=== PATIENT | male | born 1950 | race Caucasian/White ===

== ENCOUNTER 2018-09-19 13:27 | Inpatient (IN) | payer OTHER ==
--- NOTE | 2018-09-19 13:41 | PDOC ---
Rapid Medical Evaluation Chief Complaint: Weakness Time Seen by Provider: 09/19/18 13:38 Medical Evaluation: Allergies Allergy/AdvReac Type Severity Reaction Status Date / Time No Known Allergies Allergy Verified 09/19/18 13:32 09/19/18 13:38 I have performed a brief in-person evaluation of this patient. The patient presents with a chief complaint of: multiple complaints including JOSEPH , dizziness, numbness to RUE and b/l LE x 4 days. No ext weakness, slurred speech, visual changes or n/v. Also c/o hypersomnia. S/p multiple workup at OSH last week including CTH and MRI and told everything was normal per pt. H/o HTN, HLD, depression Pertinent physical exam findings:Stable and non-focal I have ordered the following:ekg/labs The patient will proceed to the ED for further evaluation. Discharge Disposition - Diagnosis Dizzy - Referrals - Patient Instructions - Post Discharge Activity
[2018-09-19 14:40] LABS: BASO % 1.9 % (0-2.0); EOS % 0.6 % (0-4.5); HEMATOCRIT 40.1 % (35.4-49); HEMOGLOBIN 13.6 GM/dL (11.7-16.9); LYMPH % 20.7 % (8-40); MCH 33.8 pg (25.7-33.7); MEAN CELL VOLUME 99.4 fl (80-96); MEAN PLT VOLUME 8.3 fl (7.5-11.1); MONO % 7.1 % (3.8-10.2); NEUT % 69.7 % (42.8-82.8); PLATELET COUNT 211 K/MM3 (134-434); RBC 4.03 M/mm3 (4.00-5.60); WHITE BLOOD COUNT 5.6 K/mm3 (4.0-10.0)
--- NOTE | 2018-09-19 14:40 | EKG ---
Test Reason : Blood Pressure : / mmHG Vent. Rate : 087 BPM Atrial Rate : 087 BPM P-R Int : 192 ms QRS Dur : 104 ms QT Int : 422 ms P-R-T Axes : 058 029 065 degrees QTc Int : 507 ms NORMAL SINUS RHYTHM POSSIBLE LEFT ATRIAL ENLARGEMENT PROLONGED QT ABNORMAL ECG NO PREVIOUS ECGS AVAILABLE Confirmed by Luis M Upton MD ([id number]) on 09/19/2018 2:40:22 PM Referred By: Confirmed By:Luis M Upton MD
[2018-09-19 14:42] LABS: EPI CELLS 0.5 /HPF (0-5/HPF); HYALINE CASTS 1 /lpf (0-8); PH,URINE 6.5 (5.0-8.0); URINE APPEARANCE CLEAR; URINE BACTERIA 2.9 /hpf (NEGATIVE); URINE BILIRUBIN 1+ (NEGATIVE); URINE COLOR DK YELLOW; URINE GLUCOSE (UA) NEGATIVE (NEGATIVE); URINE KETONE 2+ (NEGATIVE); URINE LEUK ESTERASE NEGATIVE (NEGATIVE); URINE NITRITE NEGATIVE (NEGATIVE); URINE PROTEIN 2+ (NEGATIVE); URINE RBC 2 /hpf (0-4); URINE WBC 0 /hpf (0-5)
[2018-09-19 15:15] LABS: ALBUMIN 3.7 g/dl (3.4-5.0); ALK PHOS 148 U/L (45-117); ANION GAP 14 MMOL/L (8-16); BILIRUBIN,TOTAL 1.1 mg/dL (0.2-1); BLOOD UREA NITROGEN 13.1 mg/dL (7-18); CALCIUM 8.9 mg/dL (8.5-10.1); CHLORIDE 100 mmol/L (98-107); CO2 25 mmol/L (21-32); CREATININE 0.8 mg/dL (0.55-1.3); GLUCOSE,RANDOM 76 mg/dL (74-106); POTASSIUM 3.5 mmol/L (3.5-5.1); SGOT/AST 413 U/L (15-37); SGPT/ALT 166 U/L (13-61); SODIUM 139 mmol/L (136-145); TOT PROT 7.6 g/dl (6.4-8.2)
--- NOTE | 2018-09-19 15:41 | PDOC ---
History of Present Illness - General Chief Complaint: Weakness Stated Complaint: WEAKNESS Time Seen by Provider: 09/19/18 13:38 - History of Present Illness Initial Comments: 09/19/18 15:50 68 y/o M with hx of HTN presenting with 3 weeks of weakness. He has had 2 visits to an OSH in the last 3wks for this complaint. CT scans and MRI showed no findings and he was sent home. The weakness is primarily in his right upper extremity and legs bilaterally. He has experienced numbness and tingling in those extremities, but no decreased sensation. It is constant and has progressively gotten worse. He denies fevers, preceding viral illness, nausea, vomiting, dysuria, hematuria. Past History - Past Medical History Allergies/Adverse Reactions: Allergies Allergy/AdvReac Type Severity Reaction Status Date / Time No Known Allergies Allergy Verified 09/19/18 13:41 CVA: No COPD: No CHF: No DVT: No HTN: Yes Hypercholesterolemia: Yes - Immunization History Immunization Up to Date: Yes - Suicide/Smoking/Psychosocial Hx Smoking History: Never smoked Information on smoking cessation initiated: No Hx Alcohol Use: No Drug/Substance Use Hx: No Review of Systems - Review of Systems Constitutional: Yes: Loss of Appetite, Weakness. No: Fever HEENTM: No: Eye Pain, Blurred Vision Respiratory: No: Cough, Shortness of Breath Cardiac (ROS): No: Chest Pain ABD/GI: Yes: Other (abdominal pain). No: Diarrhea : No: Burning, Dysuria, Hematuria Integumentary: No: Bruising Neurological: Yes: See HPI Endocrine: No: Excessive Sweating All Other Systems: Reviewed and Negative *Physical Exam - Vital Signs Last Vital Signs Temp Pulse Resp BP Pulse Ox 97 H 17 124/82 95 09/19/18 13:32 09/19/18 13:32 09/19/18 13:32 09/19/18 13:32 - Physical Exam General Appearance: Yes: Nourished, Appropriately Dressed HEENT: positive: EOMI, GLORIA. negative: Scleral Icterus (R), Scleral Icterus (L) , Rhinorrhea, Sinus Tenderness Respiratory/Chest: positive: Lungs Clear, Normal Breath Sounds. negative: Chest Tender, Respiratory Distress, Wheezing Cardiovascular: positive: Regular Rhythm, Regular Rate, S1, S2. 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 5/5 in both upper extremities. no diminished sensation bilaterally ). negative: Abnormal Cranial NS, Facial Droop, Sensory Deficit, Confused, Disoriented ED Treatment Course - LABORATORY CBC & Chemistry Diagram: 09/19/18 14:27 09/19/18 14:27 - ADDITIONAL ORDERS Additional order review: Laboratory Results 09/19/18 14:27 Urine Color Dk yellow Urine Appearance Clear Urine pH 6.5 Ur Specific [place] 1.026 Urine Protein 2+ H Urine Glucose (UA) Negative Urine Ketones 2+ H Urine Blood Negative Urine Nitrite Negative Urine Bilirubin 1+ H Urine Urobilinogen 1.0 Ur Leukocyte Esterase Negative Urine WBC (Auto) 0 Urine RBC (Auto) 2 Urine Casts (Auto) 1 U Epithel Cells (Auto) 0.5 Urine Bacteria (Auto) 2.9 09/19/18 14:27 RBC 4.03 MCV 99.4 H MCHC 34.0 RDW 15.0 MPV 8.3 Neutrophils % 69.7 Lymphocytes % 20.7 Monocytes % 7.1 Eosinophils % 0.6 Basophils % 1.9 Medical Decision Making - Medical Decision Making 09/19/18 16:02 68y/o M with hx of htn presenting to the ED with 3wks of weakness and 2 prior ED visits for this complaint at OSH. seen in RME: ekg,cbc,cmp ordered ekg shows sinus rhythm,prolonged qt 507ms and left atrial enlargement -cbc, cmp, gallbladder u/s. ordered - cmp showing elevated ast, alt and alk phos. ast- 413,alt 166, alk phos 148 gall bladder u/s pending 09/19/18 16:53 09/19/18 18:14 -Lipase elevated. -Gallbladder U/S shows diffuse hepatic steatosis with no cholecystitis/ cholelithiasis. -IV fluids given and pt. made npo -Microblog for admission done at 6:14 pm to admitting team 09/19/18 18:22 Pt informed me that he is in methad[place] [id number] Unit# III dose verification; [phone] 09/19/18 18:[address] myers, she will have her night resident contact us for admission 09/19/18 19:[address] Parra to follow up on finalizing admission *DC/Admit/Observation/Transfer Diagnosis at time of Disposition: Dizzy Pancreatitis Qualifiers: Chronicity: acute Pancreatitis type: unspecified pancreatitis type Acute pancreatitis complication: unspecified Qualified Code(s): K85.90 - Acute pancreatitis without necrosis or infection, unspecified - Discharge Dispostion Condition at time of disposition: Guarded Decision to Admit order: Yes - Referrals - Patient Instructions - Post Discharge Activity
--- NOTE | 2018-09-19 17:46 | PDOC ---
Documentation entered by Hiram Mendoza SCRIBE, acting as scribe for Shanita Michael MD. Shanita Michael MD: This documentation has been prepared by the Reji gillespie Elijah, SCRIBE, under my direction and personally reviewed by me in its entirety. I confirm that the documentation accurately reflects all work, treatment, procedures, and medical decision making performed by me. Attending Attestation - Resident Resident Name: Lavern Yeung - ED Attending Attestation I have performed the following: I have examined & evaluated the patient, The case was reviewed & discussed with the resident, I agree w/resident's findings & plan, Exceptions are as noted - HPI HPI: 09/19/18 16:34 Patient is a 68 year old male with a significant past medical history of HTN, HLD, and depression who presents to the ED with x3 weeks of weakness in the R arm and both legs. Patient associates some numbness, tingling and lightheadedness but notes there are no preceding symptoms that bring about his weakness . Patient was recently seen in [facility] and his labs all came back negative. Denies recent falls Allergies: NKA - Physicial Exam PE: GENERAL: Awake, alert, and fully oriented, in no acute distress HEAD: No signs of trauma EYES: PERRLA, EOMI, sclera anicteric, conjunctiva clear ENT: Auricles normal inspection, hearing grossly normal, nares patent, oropharynx clear without exudates. Moist mucosa NECK: Normal ROM, supple, no lymphadenopathy, JVD, or masses LUNGS: Breath sounds equal, clear to auscultation bilaterally. No wheezes, and no crackles HEART: Regular rate and rhythm, normal S1 and S2, no murmurs, rubs or gallops ABDOMEN: Soft, +BUQ tenderness and epigastric tenderness, normoactive bowel sounds. +Guarding, no rebound. No masses EXTREMITIES: Normal range of motion, no edema. No clubbing or cyanosis. No cords, erythema, or tenderness NEUROLOGICAL: Cranial nerves II through XII grossly intact. Normal speech. Sensation intact. 4/5 strength lower extremities B/L, 5/5 in upper extremities SKIN: Warm, dry, normal turgor, no rashes or lesions noted. - Medical Decision Making Pt with multiple chronic complaints- he has had the weakness for an extended period of time, but does not have a primary care and does not follow with a neurologist. Unclear prior workup- it appears that it was all done in the setting of the ED and then he was (?) lost to follow-up. While he can be set up with a primary care and a neurologist for outpatient f/u, my primary concern today is that he has upper abdominal pain, appetite loss, dec PO intake, with elevated lipase. Will admit.
[2018-09-19] MEDS ORDERED: SODIUM CHLORIDE 1,000 ML IV SCH (18:00)
--- NOTE | 2018-09-19 19:18 | PDOC ---
*Physical Exam - Vital Signs Last Vital Signs Temp Pulse Resp BP Pulse Ox 98.0 F 89 17 142/87 94 L 09/19/18 17:55 09/19/18 17:55 09/19/18 13:32 09/19/18 17:55 09/19/18 17:55 ED Treatment Course - LABORATORY CBC & Chemistry Diagram: 09/19/18 14:27 09/19/18 14:27 - ADDITIONAL ORDERS Additional order review: Laboratory Results 09/19/18 09/19/18 09/19/18 14:27 14:27 14:27 Sodium 139 Potassium 3.5 Chloride 100 Carbon Dioxide 25 Anion Gap 14 BUN 13.1 Creatinine 0.8 Est GFR (CKD-EPI)AfAm 107.89 Est GFR (CKD-EPI)NonAf 93.09 Random Glucose 76 Calcium 8.9 Total Bilirubin 1.1 H AST 413 H ALT 166 H Alkaline Phosphatase 148 H Creatine Kinase 858 H Troponin I < 0.02 Total Protein 7.6 Albumin 3.7 Lipase 862 H Urine Color Dk yellow Urine Appearance Clear Urine pH 6.5 Ur Specific [place] 1.026 Urine Protein 2+ H Urine Glucose (UA) Negative Urine Ketones 2+ H Urine Blood Negative Urine Nitrite Negative Urine Bilirubin 1+ H Urine Urobilinogen 1.0 Ur Leukocyte Esterase Negative Urine WBC (Auto) 0 Urine RBC (Auto) 2 Urine Casts (Auto) 1 U Epithel Cells (Auto) 0.5 Urine Bacteria (Auto) 2.9 09/19/18 14:27 RBC 4.03 MCV 99.4 H MCHC 34.0 RDW 15.0 MPV 8.3 Neutrophils % 69.7 Lymphocytes % 20.7 Monocytes % 7.1 Eosinophils % 0.6 Basophils % 1.9 Medical Decision Making - Medical Decision Making Sign out received per Dr. Yeung. Will get patient admitted for pancreatitis. 09/19/18 19:17 *DC/Admit/Observation/Transfer Diagnosis at time of Disposition: Dizzy - Referrals - Patient Instructions - Post Discharge Activity
[2018-09-19] MEDS ORDERED: LORazepam 2 MG/ML SDV VIAL IVPUSH PRN ×2 (20:21→22:16)
[2018-09-19] MEDS ORDERED: FOLIC ACID INJECTION - 1 MG, THIAMINE HCL 100 MG, MULTIVIT INJECTION ADULT 10 ML in SOD... IVPB ONE (20:32)
--- NOTE | 2018-09-19 21:25 | HP ---
<Jay Jay Grijalva - Last Filed: 09/20/18 07:01> CHIEF COMPLAINT: PCP: none HISTORY OF PRESENT ILLNESS: 68M w/ PMH of HLD, HTN, chronic b/l knee pain, h/o PE(on xarelto), chronic tobacco usage, chronic methadone, chronic EtOH usage, BIBbrother for concern of upper/lower extremity numbness/weaknes x multiple months. States that it occurs intermittently throughout the day. Has numbness running from fingers to shoulders, and in toes. Has associated complaint of fatigue, dizziness, nausea, bilious vomiting, anorexia x 2-3d, SOB x2mo, epigastric abd pain x2-3mo, no postprandial pain, blood per rectum on wiping xmultiple months, melena x1 episode 1week prior, denies chronic NSAID usage. Does not see his PCP regularly. Drinks 1 pint pastora, daily; last drink was in AM prior to ED visit. Denies h/o seizures, hospital admissions for EtOH witdrawal. Denies h/o jaundice. ER course was notable for: (1) lipase 862 Recent Travel: PAST MEDICAL HISTORY: HLD, HTN, chronic b/l knee pain, h/o PE(on xarelto), chronic tobacco usage, chronic methadone, chronic EtOH usage PAST SURGICAL HISTORY: b/l arthroscopic knee Social History: Smokincig/daily, x30ys Alcohol: 1pint pastora/daily Drugs: heorin(snorted, last usage 10ys prior) Family History: Allergies No Known Allergies Allergy (Verified 09/19/18 13:41) HOME MEDICATIONS: Home Medications Medication Instructions Recorded Atorvastatin Ca [Lipitor] 20 mg PO HS 09/19/18 Chlorthalidone 25 mg PO DAILY 09/19/18 Rivaroxaban [Xarelto -] 20 mg PO DAILY 09/19/18 REVIEW OF SYSTEMS CONSTITUTIONAL: complains of generalized weakness, loss of appetite Absent: fever, chills, diaphoresis, malaise, weight change HEENT: Absent: rhinorrhea, nasal congestion, throat pain, throat swelling, difficulty swallowing, mouth swelling, ear pain, eye pain, visual changes, jaundice CARDIOVASCULAR: Absent: chest pain, syncope, palpitations, irregular heart rate, lightheadedness , peripheral edema RESPIRATORY: shortness of breath Absent: cough, dyspnea with exertion, orthopnea, wheezing, stridor, hemoptysis GASTROINTESTINAL: epigastric abd pain, melena x1, blood on wiping Absent: abdominal distension, nausea, vomiting, diarrhea, constipation, hematochezia GENITOURINARY: Absent: dysuria, frequency, urgency, hesitancy, hematuria, flank pain, genital pain MUSCULOSKELETAL: b/l knee pain Absent: myalgia, joint swelling, back pain, neck pain SKIN: Absent: rash, itching, pallor HEMATOLOGIC/IMMUNOLOGIC: Absent: easy bleeding, easy bruising, lymphadenopathy, frequent infections ENDOCRINE: Absent: unexplained weight gain, unexplained weight loss 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 PHYSICAL EXAMINATION Vital Signs - 24 hr 09/19/18 09/19/18 13:32 17:55 Temperature 98.0 F Pulse Rate 97 H Pulse Rate [ 89 Right Radial] Respiratory 17 Rate Blood Pressure 124/82 Blood Pressure 142/87 [Left Arm] O2 Sat by Pulse 95 94 L Oximetry (%) GENERAL: Awake, alert, and fully oriented, in no acute distress. Appears mildly anxious. Scant diaphoresis of forehead HEAD: Normal with no signs of trauma. No temporal wasting EYES: extraocular movements intact, sclera anicteric, conjunctiva clear. No lid lag. EARS, NOSE, THROAT: Ears normal, nares patent, oropharynx clear without exudates. Moist mucous membranes. Tongue fasciculations. No infraglossal jaundice NECK: Normal range of motion, supple without lymphadenopathy, JVD, or masses. LUNGS: Breath sounds equal, clear to auscultation bilaterally. No wheezes, and no crackles. No accessory muscle use. HEART: Regular rate and rhythm, normal S1 and S2 without murmur, rub or gallop. ABDOMEN: Soft, not distended, no guarding, no rebound, no masses. No tenderness w/ light palpation. Tenderness with deep palpation of epigastrium and RLQ. Neg Haji's RECTAL: no external hemorrhoids noted, no mucosal tears, no masses in rectal canal; no blood on glove MUSCULOSKELETAL: Normal range of motion at all joints. No bony deformities or tenderness. UPPER EXTREMITIES: 2+ pulses, warm, well-perfused. No cyanosis. No peripheral edema. LOWER EXTREMITIES: 2+ pulses, warm, well-perfused. No calf tenderness. No peripheral edema. NEUROLOGICAL: Cranial nerves II-XII intact. Normal speech. Gait with cane. Tremulous voice. Floors Buffer strength 5/5. PSYCHIATRIC: Cooperative. Good eye contact. Appropriate mood and affect. SKIN: Warm, dry, normal turgor, no rashes or lesions noted, normal capillary refill. Laboratory Results - last 24 hr 09/19/18 09/19/18 09/19/18 14:27 14:27 14:27 WBC 5.6 RBC 4.03 Hgb 13.6 Hct 40.1 MCV 99.4 H MCH 33.8 H MCHC 34.0 RDW 15.0 Plt Count 211 MPV 8.3 Absolute Neuts (auto) 3.9 Neutrophils % 69.7 Lymphocytes % 20.7 Monocytes % 7.1 Eosinophils % 0.6 Basophils % 1.9 Nucleated RBC % 0 Sodium 139 Potassium 3.5 Chloride 100 Carbon Dioxide 25 Anion Gap 14 BUN 13.1 Creatinine 0.8 Est GFR (CKD-EPI)AfAm 107.89 Est GFR (CKD-EPI)NonAf 93.09 Random Glucose 76 Calcium 8.9 Total Bilirubin 1.1 H AST 413 H ALT 166 H Alkaline Phosphatase 148 H Creatine Kinase 858 H Creatine Kinase Index 0.4 CK-MB (CK-2) 3.8 H Troponin I < 0.02 Total Protein 7.6 Albumin 3.7 Lipase 862 H Urine Color Urine Appearance Urine pH Ur Specific [place] Urine Protein Urine Glucose (UA) Urine Ketones Urine Blood Urine Nitrite Urine Bilirubin Urine Urobilinogen Ur Leukocyte Esterase Urine WBC (Auto) Urine RBC (Auto) Urine Casts (Auto) U Epithel Cells (Auto) Urine Bacteria (Auto) 09/19/18 14:27 WBC RBC Hgb Hct MCV MCH MCHC RDW Plt Count MPV Absolute Neuts (auto) Neutrophils % Lymphocytes % Monocytes % Eosinophils % Basophils % Nucleated RBC % Sodium Potassium Chloride Carbon Dioxide Anion Gap BUN Creatinine Est GFR (CKD-EPI)AfAm Est GFR (CKD-EPI)NonAf Random Glucose Calcium Total Bilirubin AST ALT Alkaline Phosphatase Creatine Kinase Creatine Kinase Index CK-MB (CK-2) Troponin I Total Protein Albumin Lipase Urine Color Dk yellow Urine Appearance Clear Urine pH 6.5 Ur Specific [place] 1.026 Urine Protein 2+ H Urine Glucose (UA) Negative Urine Ketones 2+ H Urine Blood Negative Urine Nitrite Negative Urine Bilirubin 1+ H Urine Urobilinogen 1.0 Ur Leukocyte Esterase Negative Urine WBC (Auto) 0 Urine RBC (Auto) 2 Urine Casts (Auto) 1 U Epithel Cells (Auto) 0.5 Urine Bacteria (Auto) 2.9 U/S RUQ(09/19/18): Impression: No sonographic evidence of cholelithiasis or acute cholecystitis. Diffuse hepatic steatosis is noted with associated hepatomegaly. 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 - confirm dose of 40mg/daily # chronic epigastric abd pain > lipase 862 -- does not meet criteria for pancreatitis > U/S RUQ(09/19/18): no GB stones, CBD ~6.4mm - fu CT A/P w/ IV contrast -- to r/o pancreatitis - pantoprazole 40mg BID - consider outpatient EGD to evaluate for gastritis/ulcer/etc - diet pending CT results # transaminitis possible 2/2 chronic hepatosteatosis v portal vein thrombus > AST/ALT 413/166 - consider CT A/P vs MRCP - monitor CMP - education counselor on EtOH cessation # chronic tobacco usage - education counselor on tobacco cessation Jay Jay Grijalva, PGY-1 Medicine, PM-Float [id number] 09/20/18 Visit type - Emergency Visit Emergency Visit: Yes ED Registration Date: 09/19/18 Care time: The patient presented to the Emergency Department on the above date and was hospitalized for further evaluation of their emergent condition. - New Patient This patient is new to me today: Yes Date on this admission: 09/20/18 - Critical Care Critical Care patient: No ATTENDING PHYSICIAN STATEMENT I saw and evaluated the patient. I reviewed the resident's note and discussed the case with the resident. I agree with the resident's findings and plan as documented. SUBJECTIVE: OBJECTIVE: ASSESSMENT AND PLAN: <Karl Smith - Last Filed: 10/15/18 21:21> Seen and examined; verified all vital parts of historical info and PE. Please see my own note for further discussion. Agree with above aside from as supplemented by myself. Family history negative for sudden cardiac , GI malignancy ATTENDING PHYSICIAN STATEMENT I saw and evaluated the patient. I reviewed the resident's note and discussed the case with the resident. I agree with the resident's findings and plan as documented. SUBJECTIVE: OBJECTIVE: ASSESSMENT AND PLAN:
[2018-09-19] MEDS: LACTATED RINGERS SOLUTION 1,000 ML/1,000 ML INFUS.BAG IV SCH (21:31)
[2018-09-19] MEDS ORDERED: DOCUSATE SODIUM 100 MG CAPSULE (FP) PO SCH (22:00)
[2018-09-19] MEDS ORDERED: PANTOPRAZOLE 40 MG TABLET (FP) PO SCH (22:00)
[2018-09-19] MEDS ORDERED: PANTOPRAZOLE 40 MG TABLET (FP) ONE (22:21)
[2018-09-19] MEDS ORDERED: DOCUSATE SODIUM 100 MG CAPSULE (FP) PO ONE (22:22)
[2018-09-20] MEDS ORDERED: LORazepam 2 MG/ML SDV VIAL IVPUSH PRN (00:41)
[2018-09-20 01:19] VITALS: BMI 26.7
--- NOTE | 2018-09-20 01:21 | PN ---
Teaching Attending Note Name of Resident: Jay Jay Grijalva ATTENDING PHYSICIAN STATEMENT I saw and evaluated the patient. I reviewed the resident's note and discussed the case with the resident. I agree with the resident's findings and plan as documented. Seen and examined; please refer to resident note for further historical information. Patient presents with abdominal pain VS, labs, imaging reveiwed NAD AAO Resting in bed NC AT EOMI PERRLA RRR s1/2 no mgr Lungs CTAB, w/ sym exp NT ND +BS CN2-12 wnl, no fnd Normal mood, aprropriate behavior. CIWA ~7 US with no definitive CBD dilation and no GB abnormality with no PC fluid, no stones. EtOH hepatitis pattern with Alk phos only very mildly elevated ASSESSMENT AND PLAN: Patient presents in EtOH WD with abdominal pain found to have alcoholic hepatitis (AST>>ALT, bili 1.1, Alk Phos 140s) with non-diagnostic lipase (could be downtrending from likely alcoholic pancreatitis); no biliary pathology on abd US with normal ducts and no stones visualized. Will discuss need for MRCP with GI (initially was going to order CT w/ contrast given length of time to eval for pseudocyst, etc. but MRCP would also show this and any underlying panc head/neck pathology (Alk slightly elev.). He desires detox and will be referred to [facility] once his workup is complete. Given the profound nature of his alcoholism as well as hepatitis will place on IV Ativan protocol overnight and CIWA protocol. No bleeding noted today but he did have melena a few weeks ago and is on xarelto; will hold the xarelto until FOBT comes back and followup with GI and give dose IV protonix. SCDs for DVT px until then. # Alcohol WD # Acute alcoholic hepatitis # Fatty liver infiltration on US with risks of alcoholic cirrhosis # Elevated but non-diagnostic lipase with elevated alk phos in the setting of alcoholic hepatitis # Alcohol abuse, chronic # Opiate abuse in remission, on methadone (confirming dose) # Paresthesias # Macrocytosis
[2018-09-20 03:50] LABS: INR 0.97 (0.83-1.09); PROTHROMBIN TIME (PATIENT) 11.4 SEC (9.7-13.0)
[2018-09-20] MEDS: LACTATED RINGERS SOLUTION 1,000 ML/1,000 ML INFUS.BAG IV SCH ×2 (04:38→23:41)
[2018-09-20 04:58] LABS: COCAINE, UR NEGATIVE ng/ml (CUTOFF=300); OPIATES, URI NEGATIVE ng/ml (CUTOFF=300); PHENCYCLIDINE,URINE NEGATIVE ng/ml (CUTOFF=25); URINE AMPHETAMINES NEGATIVE ng/ml (CUTOFF=500); URINE BARBITURATES NEGATIVE ng/ml (CUTOFF=200); URINE BENZODIAZEPINES NEGATIVE ng/ml (CUTOFF=200)
[2018-09-20 04:59] LABS: METHADONE, UR POSITIVE ng/ml (CUTOFF=300)
[2018-09-20] MEDS: LORazepam 2 MG/ML SDV VIAL IVPUSH PRN ×4 (07:10→20:45)
[2018-09-20 08:32] LABS: HEMOGLOBIN 11.1 GM/dL (11.7-16.9); MCHC 33.7 g/dl (32.0-35.9); MEAN CELL VOLUME 100.8 fl (80-96); MEAN PLT VOLUME 8.7 fl (7.5-11.1); PLATELET COUNT 161 K/MM3 (134-434); RBC 3.28 M/mm3 (4.00-5.60); RDW 14.6 % (11.9-15.9); WHITE BLOOD COUNT 6.3 K/mm3 (4.0-10.0)
[2018-09-20 08:42] LABS: INR 0.97 (0.83-1.09); PROTHROMBIN TIME (PATIENT) 11.4 SEC (9.7-13.0)
[2018-09-20 09:15] LABS: BLOOD UREA NITROGEN 10.7 mg/dL (7-18); CALCIUM 8.5 mg/dL (8.5-10.1); CREATININE 0.7 mg/dL (0.55-1.3); MAGNESIUM 1.7 mg/dL (1.8-2.4); PHOSPHOROUS 3.1 mg/dL (2.5-4.9); POTASSIUM 3.3 mmol/L (3.5-5.1)
--- NOTE | 2018-09-20 09:27 | CON.GI ---
Addendum entered and electronically signed by Raina Simon MD 09/20/18 16:07: Low MDF <32, no indication for steroid therapy. Original Note: Consult Consult Specialty:: GI Referred by:: Rainer Grande MD Reason for Consultation:: Abdominal pain , elevated Lipase , transaminitis - History of Present Illness Chief Complaint: dizziness , paresthesia. chronic slight abdominal pain History of Present Illness: 68M w/ PMH of HLD, HTN, chronic b/l knee pain, h/o PE(on xarelto), chronic tobacco usage, chronic methadone, chronic EtOH usage, BIB brother for concern of upper/lower extremity numbness/weakness x multiple months and dizziness . States that it occurs intermittently throughout the day. Has numbness running from fingers to shoulders, and in toes. Has associated complaint of fatigue, dizziness, nausea, bilious vomiting, anorexia x 2-3d, SOB x2mo, epigastric abd pain x2-3mo, no postprandial pain, blood per rectum on wiping xmultiple months, melena x1 episode 1week prior, denies chronic NSAID usage. Does not see his PCP regularly. Drinks 1 pint jewels, daily; last drink was in AM prior to ED visit. Denies h/o seizures, hospital admissions for EtOH witdrawal. Denies h/o jaundice. 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 No: Ascites Hepatobiliary: No: Cholelithiasis Renal/: No: Hematuria, Hemodialysis Psych: Yes: Addictions (methadone , alcohol , marijuana ) Rheumatology: Yes: Other (B.l Knee pain ) - Alcohol/Substance Use Hx Alcohol Use: Yes Number of Drinks Daily: 1 (1.5 pind of Jewels , last use Yesterday ) History of Substance Use: reports: Heroin, Marijuana, Prescription (methadone ) Date of Last Use: 09/16/18 (Marijuana ) - Smoking History Smoking history: Current every day smoker Have you smoked in the past 12 months: Yes Aproximately how many cigarettes per day: 5 - Social History Usual Living Arrangement: Alone ADL: Independent <Reg Graf - Last Filed: 09/20/18 15:10> Home Medications <Reg Graf - Last Filed: 09/20/18 15:10> <Raina Simon - Last Filed: 09/20/18 16:05> - Allergies Allergies/Adverse Reactions: Allergies Allergy/AdvReac Type Severity Reaction Status Date / Time No Known Allergies Allergy Verified 09/19/18 13:41 - Home Medications Home Medications: Ambulatory Orders Atorvastatin Ca [Lipitor] 20 mg PO HS 09/19/18 Chlorthalidone 25 mg PO DAILY 09/19/18 Rivaroxaban [Xarelto -] 20 mg PO DAILY 09/19/18 Methadone [Dolophine -] 40 mg PO DAILY 09/20/18 Family Disease History - Family Disease History Family Disease History: Diabetes: Mother ( @ 72 Angina , DM ), Other: Father ( @ 55 , heavy drinking ), Mother <Reg Graf - Last Filed: 09/20/18 15:10> Review of Systems - Review of Systems Constitutional: reports: Lethargy Eyes: denies: Blurred Vision, Double Vision HENT: denies: Difficult Swallowing, Ear Discharge, Ear Pain, Epistaxis, Nasal Congestion Neck: reports: No Symptoms Cardiovascular: denies: Chest Pain, Edema Respiratory: denies: Hemoptysis, Orthopnea, PND, Wheezing Genitourinary: denies: Burning, Discharge, Flank Pain, Hematuria Breasts: reports: No Symptoms Reported Musculoskeletal: reports: Other (B.L Knee pain) Integumentary: reports: No Symptoms Neurological: reports: Dizziness (feel room spinning). denies: Headache Psychiatric: reports: Anxiety <Reg Graf - Last Filed: 09/20/18 15:10> Physical Exam-GI Vital Signs: Vital Signs Temperature 98.7 F 09/20/18 09:00 Pulse Rate 80 09/20/18 09:00 Respiratory Rate 20 09/20/18 09:00 Blood Pressure 137/84 09/20/18 09:00 O2 Sat by Pulse Oximetry (%) 98 09/19/18 23:10 Constitutional: Yes: Well Nourished, No Distress, Anxious Eyes: Yes: Sclera Icterus HENT: Yes: Atraumatic, Normocephalic Neck: Yes: Supple Cardiovascular: Yes: Regular Rate and Rhythm Respiratory: Yes: CTA Bilaterally Gastrointestinal Inspection: No: Ascites, Distention ...Auscultate: Yes: Normoactive Bowel Sounds ...Palpate: Yes: Tenderness (EUQ and RLQ), Tenderness, Epigastium (mild) ...Percussion: Yes: Tympanitic ...Rectal Exam: Yes: Guaiac Negative (send another sample), Sphincter Tone Normal. No: Hemorrhoids/External Genitourinary: No: Anuria, CVA Tenderness - Left Musculoskeletal: Yes: Other (B/L Knee tenderness) Edema: No Peripheral Pulses WNL: Yes Neurological: Yes: Alert, Oriented, Numbness, Paresthesia. No: Facial Droop Psychiatric: Yes: Alert, Oriented Labs: CBC, [facility] 09/20/18 07:35 09/20/18 07:35 INR, PTT INR 0.97 (0.83-1.09) 09/20/18 07:35 <Reg Graf - Last Filed: 09/20/18 15:10> Vital Signs: Vital Signs Temperature 99 F 09/20/18 14:00 Pulse Rate 82 09/20/18 14:00 Respiratory Rate 20 09/20/18 14:00 Blood Pressure 131/88 09/20/18 14:00 O2 Sat by Pulse Oximetry (%) 98 09/19/18 23:10 Labs: CBC, [facility] 09/20/18 07:35 09/20/18 07:35 INR, PTT INR 0.97 (0.83-1.09) 09/20/18 07:35 <Raina Simon - Last Filed: 09/20/18 16:05> Imaging - Results Chest X-ray: Report Reviewed Ultrasound: Report Reviewed <Reg Graf - Last Filed: 09/20/18 15:10> Problem List - Problems (1) ETOH abuse Code(s): F10.10 - ALCOHOL ABUSE, UNCOMPLICATED (2) EtOH dependence Code(s): F10.20 - ALCOHOL DEPENDENCE, UNCOMPLICATED (3) Methadone dependence Code(s): F11.20 - OPIOID DEPENDENCE, UNCOMPLICATED (4) Transaminitis Code(s): R74.0 - NONSPEC ELEV OF LEVELS OF TRANSAMNS & LACTIC ACID DEHYDRGNSE (5) Elevated lipase Code(s): R74.8 - ABNORMAL LEVELS OF OTHER SERUM ENZYMES (6) Epigastric pain Code(s): R10.13 - EPIGASTRIC PAIN (7) HTN (hypertension) Code(s): I10 - ESSENTIAL (PRIMARY) HYPERTENSION (8) HLD (hyperlipidemia) Code(s): E78.5 - HYPERLIPIDEMIA, UNSPECIFIED (9) History of pulmonary embolus (PE) Code(s): Z86.711 - PERSONAL HISTORY OF PULMONARY EMBOLISM (10) History of melena Code(s): Z87.19 - PERSONAL HISTORY OF OTHER DISEASES OF THE DIGESTIVE SYSTEM (11) Dizzy Code(s): R42 - DIZZINESS AND GIDDINESS (12) Prolonged Q-T interval on ECG Code(s): R94.31 - ABNORMAL ELECTROCARDIOGRAM [ECG] [EKG] <Reg Graf - Last Filed: 09/20/18 15:10> Assessment/Plan # Abdominal pain very mild stareted 3 days ago , Epigastric and RUQ , RLQ , local non radiating R.O Epigastric ulcer , # Transaminitis AST 413, ALT 166, likely de to alcohol use , Bili 1.1 , US with CBD 6.5 , no cholelithisis , send hep panel , follow MRCP # Lipase elevation 800, not diagnostic for acute pancreatitis , # ETOH Abuse consider Ativan protocol , Last drink Yesterday on 1.5 pint of Jewels daily , interested in Detox # Melena one episode last month per pt , reports another one this AM , MEDARDO done By me and attending with brown stool , occult blood negative x2 , denies NSAIDS use but he is On Xarelto for PE diagnosed February 2018 , hold Xarelto FOR now , prefer heparin drip , hold in AM (6hours before EGD tomorrow ), * , hald colonoscopy June 2017 on [facility] with one plyp removed and no significant pathology per pt * Monitor H/H the drop likely delutional , repeat CBC this afternoon , no urgency for EGD , start clear liquid diet * NPO after mid night , EGD tomorrow # Methadone abuse cont out pt dose 40 mg po daily # HTN #HLD # H.o PE hold xarelto in case we need to do EGD # chronic knee pain follow up out pt # Hypomagnesia , hypokalemia replenish as needed per primary team # prolonged QTC 507 on EKG careful with antiemetics meds and other meds cause prolongation <Reg Graf - Last Filed: 09/20/18 15:10> Pt seen/examined at bedside wtih Dr. Graf, agree with above assessment and plan. Briefly, 68yo male h/o ETOH abuse, PE on xarelto (diagnosed more than 4-5 months ago), presenting with increased weakness with reported epigastric pain and dark stools. Pt poor historian though denies pain currently. History obtained partly from pts brother by phone. Pt appears comfortable, slightly tremulous, AAOX3 Abd soft, nt, softly distended Rectal: light brown stool, no obvious hemorrhoids Labs reviewed. Elevated LFTs noted most likely consistent with alcoholic hepatitis. Not suggestive of underlying cirrhosis. Labs and imaging otherwise not consistent with acute pancreatitis. While no evidence of active GI bleed, cannot exclude upper GI lesion considering prior complaints. Recommend MRCP to further evaluate for biliary obstructive process and pancreatic pathology considering vague upper abdominal complaints PPI BID Continue to hold xarelto for now, would favor heparin drip CIWA protocol If further clinically optimized and pending MRI results, would tentatively plan for EGD tomorrow for further evaluation particularly as pt will need to resume anticoagulation therapy (heparin would need to be held 6 hours prior to procedure). If overt bleeding with acute drop in Hb please notify for possible more urgent intervention. Discussed with medicine attending <Raina Simon - Last Filed: 09/20/18 16:05>
[2018-09-20 09:44] LABS: BILIRUBIN,DIRECT 0.8 mg/dL (0.0-0.2); TOT PROT 6.2 g/dl (6.4-8.2)
[2018-09-20] MEDS ORDERED: CHLORTHALIDONE 25 MG TABLET PO SCH (10:00)
[2018-09-20] MEDS ORDERED: THIAMINE HCL 200 MG/2 ML VIAL IVPB SCH (10:00)
[2018-09-20] MEDS ORDERED: PANTOPRAZOLE 40 MG TABLET (FP) PO SCH (10:00)
[2018-09-20] MEDS ORDERED: RIVAROXABAN 20 MG TABLET PO SCH (10:00)
[2018-09-20] MEDS ORDERED: ENOXAPARIN NA (PORCINE) 40 MG/0.4 ML DISP.SYRIN SQ SCH (10:00)
[2018-09-20] MEDS ORDERED: PANTOPRAZOLE SODIUM 40 MG VIAL IVPUSH SCH (10:00)
[2018-09-20] MEDS ORDERED: MAGNESIUM OXIDE 400 MG TABLET (FP) PO ONE (10:50)
[2018-09-20] MEDS ORDERED: MAGNESIUM SULF 50% (8.12 MEQ/2 ML-1 GM VIAL) IVPB ONE (11:00)
[2018-09-20] MEDS ORDERED: POTASSIUM CHLORIDE TABS 20 MEQ TABLET.ER (FP) PO ONE (11:00)
[2018-09-20] MEDS: KCL 10 MEQ IVPB 10 MEQ/100 ML INFUS.BAG IVPB SCH ×2 (12:41→17:49)
--- NOTE | 2018-09-20 13:17 | EKG ---
Test Reason : Blood Pressure : / mmHG Vent. Rate : 079 BPM Atrial Rate : 079 BPM P-R Int : 196 ms QRS Dur : 102 ms QT Int : 412 ms P-R-T Axes : 054 033 039 degrees QTc Int : 472 ms NORMAL SINUS RHYTHM NORMAL ECG WHEN COMPARED WITH ECG OF 19-SEP-2018 13:35, NO SIGNIFICANT CHANGE WAS FOUND Confirmed by SELENA SALDIVAR MD ([id number]) on 09/20/2018 1:17:23 PM Referred By: Maude MENDOZA Confirmed By:SELENA SALDIVAR MD
--- NOTE | 2018-09-20 14:53 | PN ---
Teaching Attending Note Name of Resident: Adri Vera ATTENDING PHYSICIAN STATEMENT I saw and evaluated the patient. I reviewed the resident's note and discussed the case with the resident. I agree with the resident's findings and plan as documented. SUBJECTIVE: Reports some ongoing dizziness and paraesthesia bilateral hands. No abdominal pain/nausea/vomiting/fever/chills. OBJECTIVE: Afebrile, Hemodynamically Stable. Last Vital Signs Temp Pulse Resp BP Pulse Ox 98.7 F 80 20 137/84 98 09/20/18 09:00 09/20/18 09:00 09/20/18 09:00 09/20/18 09:00 09/19/18 23:10 HEENT - Atraumatic, Normocephalic. Heart - S1, S2, RRR Lungs - clear to auscultation Abdomen - Soft, non-tender. Extremities - mild tremor. Neuro - AAO x 3. Tone/Power normal all 4 extremities. GLORIA. EOMI. No nystagmus. Laboratory Results - last 24 hr 09/19/18 09/19/18 09/19/18 14:27 14:27 14:27 WBC 5.6 RBC 4.03 Hgb 13.6 Hct 40.1 MCV 99.4 H MCH 33.8 H MCHC 34.0 RDW 15.0 Plt Count 211 MPV 8.3 Absolute Neuts (auto) 3.9 Neutrophils % 69.7 Lymphocytes % 20.7 Monocytes % 7.1 Eosinophils % 0.6 Basophils % 1.9 Nucleated RBC % 0 PT with INR INR Sodium 139 Potassium 3.5 Chloride 100 Carbon Dioxide 25 Anion Gap 14 BUN 13.1 Creatinine 0.8 Est GFR (CKD-EPI)AfAm 107.89 Est GFR (CKD-EPI)NonAf 93.09 Random Glucose 76 Hemoglobin A1c % Calcium 8.9 Phosphorus Magnesium Total Bilirubin 1.1 H Direct Bilirubin AST 413 H ALT 166 H Alkaline Phosphatase 148 H Creatine Kinase 858 H Creatine Kinase Index 0.4 CK-MB (CK-2) 3.8 H Troponin I < 0.02 Total Protein 7.6 Albumin 3.7 Lipase 862 H Vitamin B12 Serum Folate TSH Urine Color Urine Appearance Urine pH Ur Specific [place] Urine Protein Urine Glucose (UA) Urine Ketones Urine Blood Urine Nitrite Urine Bilirubin Urine Urobilinogen Ur Leukocyte Esterase Urine WBC (Auto) Urine RBC (Auto) Urine Casts (Auto) U Epithel Cells (Auto) Urine Bacteria (Auto) Stool Occult Blood Opiates Screen Methadone Screen Barbiturate Screen Phencyclidine Screen Ur Amphetamines Screen MDMA (Ecstasy) Screen Benzodiazepines Screen Cocaine Screen U Marijuana (THC) Screen 09/19/18 09/19/18 09/19/18 14:27 14:27 14:27 WBC RBC Hgb Hct MCV MCH MCHC RDW Plt Count MPV Absolute Neuts (auto) Neutrophils % Lymphocytes % Monocytes % Eosinophils % Basophils % Nucleated RBC % PT with INR INR Sodium Potassium Chloride Carbon Dioxide Anion Gap BUN Creatinine Est GFR (CKD-EPI)AfAm Est GFR (CKD-EPI)NonAf Random Glucose Hemoglobin A1c % Calcium Phosphorus Magnesium 1.9 Total Bilirubin Direct Bilirubin AST ALT Alkaline Phosphatase Creatine Kinase Creatine Kinase Index CK-MB (CK-2) Troponin I Total Protein Albumin Lipase Vitamin B12 Serum Folate 5 TSH Urine Color Dk yellow Urine Appearance Clear Urine pH 6.5 Ur Specific [place] 1.026 Urine Protein 2+ H Urine Glucose (UA) Negative Urine Ketones 2+ H Urine Blood Negative Urine Nitrite Negative Urine Bilirubin 1+ H Urine Urobilinogen 1.0 Ur Leukocyte Esterase Negative Urine WBC (Auto) 0 Urine RBC (Auto) 2 Urine Casts (Auto) 1 U Epithel Cells (Auto) 0.5 Urine Bacteria (Auto) 2.9 Stool Occult Blood Opiates Screen Methadone Screen Barbiturate Screen Phencyclidine Screen Ur Amphetamines Screen MDMA (Ecstasy) Screen Benzodiazepines Screen Cocaine Screen U Marijuana (THC) Screen 09/19/18 09/19/18 09/20/18 14:27 21:30 03:20 WBC RBC Hgb Hct MCV MCH MCHC RDW Plt Count MPV Absolute Neuts (auto) Neutrophils % Lymphocytes % Monocytes % Eosinophils % Basophils % Nucleated RBC % PT with INR INR Sodium Potassium Chloride Carbon Dioxide Anion Gap BUN Creatinine Est GFR (CKD-EPI)AfAm Est GFR (CKD-EPI)NonAf Random Glucose Hemoglobin A1c % Calcium Phosphorus Magnesium Total Bilirubin Direct Bilirubin AST ALT Alkaline Phosphatase Creatine Kinase 663 H Creatine Kinase Index 0.3 CK-MB (CK-2) 2.6 Troponin I Total Protein Albumin Lipase Vitamin B12 1299 H Serum Folate TSH Urine Color Urine Appearance Urine pH Ur Specific [place] Urine Protein Urine Glucose (UA) Urine Ketones Urine Blood Urine Nitrite Urine Bilirubin Urine Urobilinogen Ur Leukocyte Esterase Urine WBC (Auto) Urine RBC (Auto) Urine Casts (Auto) U Epithel Cells (Auto) Urine Bacteria (Auto) Stool Occult Blood Negative Opiates Screen Methadone Screen Barbiturate Screen Phencyclidine Screen Ur Amphetamines Screen MDMA (Ecstasy) Screen Benzodiazepines Screen Cocaine Screen U Marijuana (THC) Screen 09/20/18 09/20/18 09/20/18 03:20 03:20 04:30 WBC RBC Hgb Hct MCV MCH MCHC RDW Plt Count MPV Absolute Neuts (auto) Neutrophils % Lymphocytes % Monocytes % Eosinophils % Basophils % Nucleated RBC % PT with INR 11.40 INR 0.97 Sodium Potassium Chloride Carbon Dioxide Anion Gap BUN Creatinine Est GFR (CKD-EPI)AfAm Est GFR (CKD-EPI)NonAf Random Glucose Hemoglobin A1c % Calcium Phosphorus Magnesium Total Bilirubin Direct Bilirubin AST ALT Alkaline Phosphatase Creatine Kinase Creatine Kinase Index CK-MB (CK-2) Troponin I Total Protein Albumin Lipase Vitamin B12 Serum Folate 33 H TSH Urine Color Urine Appearance Urine pH Ur Specific [place] Urine Protein Urine Glucose (UA) Urine Ketones Urine Blood Urine Nitrite Urine Bilirubin Urine Urobilinogen Ur Leukocyte Esterase Urine WBC (Auto) Urine RBC (Auto) Urine Casts (Auto) U Epithel Cells (Auto) Urine Bacteria (Auto) Stool Occult Blood Opiates Screen Negative Methadone Screen Positive A* Barbiturate Screen Negative Phencyclidine Screen Negative Ur Amphetamines Screen Negative MDMA (Ecstasy) Screen Negative Benzodiazepines Screen Negative Cocaine Screen Negative U Marijuana (THC) Screen Positive A* 09/20/18 09/20/18 09/20/18 07:35 07:35 07:35 WBC 6.3 RBC 3.28 L Hgb 11.1 L Hct 33.0 L D MCV 100.8 H MCH 34.0 H MCHC 33.7 RDW 14.6 Plt Count 161 D MPV 8.7 Absolute Neuts (auto) Neutrophils % Lymphocytes % Monocytes % Eosinophils % Basophils % Nucleated RBC % PT with INR INR Sodium 140 Potassium 3.3 L Chloride 103 Carbon Dioxide 22 Anion Gap 15 BUN 10.7 Creatinine 0.7 Est GFR (CKD-EPI)AfAm 113.98 Est GFR (CKD-EPI)NonAf 98.34 Random Glucose 65 L Hemoglobin A1c % 5.0 Calcium 8.5 Phosphorus 3.1 Magnesium 1.7 L Total Bilirubin 2.0 H Direct Bilirubin 0.8 H AST 330 H ALT 138 H Alkaline Phosphatase 126 H Creatine Kinase 652 H Creatine Kinase Index 0.3 CK-MB (CK-2) 2.4 Troponin I Total Protein 6.2 L Albumin 3.0 L Lipase Vitamin B12 Serum Folate TSH 1.58 Urine Color Urine Appearance Urine pH Ur Specific [place] Urine Protein Urine Glucose (UA) Urine Ketones Urine Blood Urine Nitrite Urine Bilirubin Urine Urobilinogen Ur Leukocyte Esterase Urine WBC (Auto) Urine RBC (Auto) Urine Casts (Auto) U Epithel Cells (Auto) Urine Bacteria (Auto) Stool Occult Blood Opiates Screen Methadone Screen Barbiturate Screen Phencyclidine Screen Ur Amphetamines Screen MDMA (Ecstasy) Screen Benzodiazepines Screen Cocaine Screen U Marijuana (THC) Screen 09/20/18 09/20/18 07:35 10:10 WBC RBC Hgb Hct MCV MCH MCHC RDW Plt Count MPV Absolute Neuts (auto) Neutrophils % Lymphocytes % Monocytes % Eosinophils % Basophils % Nucleated RBC % PT with INR 11.40 INR 0.97 Sodium Potassium Chloride Carbon Dioxide Anion Gap BUN Creatinine Est GFR (CKD-EPI)AfAm Est GFR (CKD-EPI)NonAf Random Glucose Hemoglobin A1c % Calcium Phosphorus Magnesium Total Bilirubin Direct Bilirubin AST ALT Alkaline Phosphatase Creatine Kinase Creatine Kinase Index CK-MB (CK-2) Troponin I Total Protein Albumin Lipase Vitamin B12 Serum Folate TSH Urine Color Urine Appearance Urine pH Ur Specific [place] Urine Protein Urine Glucose (UA) Urine Ketones Urine Blood Urine Nitrite Urine Bilirubin Urine Urobilinogen Ur Leukocyte Esterase Urine WBC (Auto) Urine RBC (Auto) Urine Casts (Auto) U Epithel Cells (Auto) Urine Bacteria (Auto) Stool Occult Blood Negative Opiates Screen Methadone Screen Barbiturate Screen Phencyclidine Screen Ur Amphetamines Screen MDMA (Ecstasy) Screen Benzodiazepines Screen Cocaine Screen U Marijuana (THC) Screen Current Medications Generic Name Dose Route Start Last Admin Trade Name Freq PRN Reason Stop Dose Admin Chlorthalidone 25 mg 09/20/18 10:00 [place] - PO DAILY RADHA Lactated Ringer's 1,000 ml in 1,000 mls @ 100 mls/hr 09/19/18 21:00 09/20/18 04:38 Lactated Ringers Solution IV 100 mls/hr ASDIR RADHA Administration Lorazepam 1 mg 09/19/18 20:48 09/20/18 14:10 Ativan Injection - IVPUSH 1 mg Q1H PRN Administration CIWA 5-15 Lorazepam 2 mg 09/20/18 00:41 Ativan Injection - IVPUSH Q2H PRN CIWA15+ Pantoprazole Sodium 40 mg 09/20/18 10:00 09/20/18 10:05 Protonix Iv IVPUSH 40 mg DAILY RADHA Administration Thiamine HCl 200 mg 09/20/18 10:00 09/20/18 10:05 Vitamin B1 Injection - IVPB 200 mg DAILY RADHA Administration Home Medications Medication Instructions Recorded Atorvastatin Ca [Lipitor] 20 mg PO HS 09/19/18 Chlorthalidone 25 mg PO DAILY 09/19/18 Rivaroxaban [Xarelto -] 20 mg PO DAILY 09/19/18 Methadone [Dolophine -] 40 mg PO DAILY 09/20/18 ASSESSMENT AND PLAN: 68 year old male with HTN, HLD, PE (on Xarelto), Chronic bilateral knee pain, Tobacco use, Polysubstance Abuse (including Alcohol and Heroin, on Methadone), brought to ED by his brother with complaints of dizziness and numbness of hands bilaterally, found to have elevated lipase, transaminases, CK. 1. Alcoholic Hepatitis Elevated Transaminases Abdo US - Diffuse hepatic steatosis, no evidence of acute cholecystitis or cholelithiasis. Reported history of dark stool. No active bleeding. GI consulted - recommend ERCP. Diet advanced to clears. Will need EGD at some point. LFTs trending down, will monitor. Abstinence from Alcohol urged. 2. Acute Alcohol withdrawal - no hallucinations/diaphoresis Ativan as per [facility] Thiamine, Folic Acid, [facility] consulted. 3. Peripheral Neuropathy sec to Alcohol excess. CT Brain pending 4. Dizziness CT Head requested IV hydration ongoing PT eval. 5. Hypokalemia/Hypomagnesemia - repleted. 6. Hx opiate use, on Methadone - dose confirmed. 7. QTc prolongated. Electrolytes repleted. Repeat ECG requested. Will monitor on telemetry. 8. Macrocytic Anemia sec to Alcohol excess. B12 level 1299, Folate 33 9. Hx PE - previously on Xarelto. Xarelto held in favor of heparin drip pending GI decision re: EGD. 10. HTN - Chlorthalidone held. 11. HLD - Atorvastatin held due to elavted transaminases. DVT Px - on Heparin drip GI Px - on PPI.
[2018-09-20] MEDS ORDERED: HEPARIN NA (PORCINE) 5,000 UNITS/ML 1ML VIAL IVPUSH PRN ×2 (15:09)
[2018-09-20] MEDS: METHADONE HCL 40 MG DISPERSABLE TABLET PO SCH (16:13)
--- NOTE | 2018-09-20 16:46 | PN ---
Physical Exam: SUBJECTIVE: Patient seen and examined at bedside. Pt is tremulous, nauseous, sweating d/t alcohol withdrawal. Describes parasthesias as solely now in tips of fingers and toes. Denies blood in stool today. OBJECTIVE: Vital Signs Period Temp Pulse Resp BP Sys/Plaza Pulse Ox Last 24 Hr 98.0 F-99 F 80-96 18-20 124-149/74-92 94-98 GENERAL: AOx3. Mild distress d/t nausea HEENT: NCAT. No scleral icterus. Moist mucous membranes. No rhinorrhea. LUNGS: CTABL. No incr work of breathing HEART: Regular rate and rhythm, S1, S2 without murmurs ABDOMEN: Soft, nontender, nondistended, normoactive bowel sounds. EXTREMITIES: 2+ pulses, warm, well-perfused, no edema. Tremulous. NEUROLOGICAL: Pt is tremulous. Unsteady gait. Sensory intact b/l UE & LE. Full ROM in b/l UE & LE. SKIN: No rashes/ lesions noted Laboratory Results - last 24 hr Laboratory Last Values WBC 6.3 K/mm3 (4.0-10.0) 09/20/18 07:35 RBC 3.28 M/mm3 (4.00-5.60) L 09/20/18 07:35 Hgb 11.1 GM/dL (11.7-16.9) L 09/20/18 07:35 Hct 33.0 % (35.4-49) L D 09/20/18 07:35 MCV 100.8 fl (80-96) H 09/20/18 07:35 MCH 34.0 pg (25.7-33.7) H 09/20/18 07:35 MCHC 33.7 g/dl (32.0-35.9) 09/20/18 07:35 RDW 14.6 % (11.9-15.9) 09/20/18 07:35 Plt Count 161 K/MM3 (134-434) D 09/20/18 07:35 MPV 8.7 fl (7.5-11.1) 09/20/18 07:35 Absolute Neuts (auto) 3.9 K/mm3 (1.5-8.0) 09/19/18 14:27 Neutrophils % 69.7 % (42.8-82.8) 09/19/18 14:27 Lymphocytes % 20.7 % (8-40) 09/19/18 14:27 Monocytes % 7.1 % (3.8-10.2) 09/19/18 14:27 Eosinophils % 0.6 % (0-4.5) 09/19/18 14:27 Basophils % 1.9 % (0-2.0) 09/19/18 14:27 Nucleated RBC % 0 % (0-0) 09/19/18 14:27 PT with INR 11.40 SEC (9.7-13.0) 09/20/18 07:35 INR 0.97 (0.83-1.09) 09/20/18 07:35 Sodium 140 mmol/L (136-145) 09/20/18 07:35 Potassium 3.3 mmol/L (3.5-5.1) L 09/20/18 07:35 Chloride 103 mmol/L (98-107) 09/20/18 07:35 Carbon Dioxide 22 mmol/L (21-32) 09/20/18 07:35 Anion Gap 15 MMOL/L (8-16) 09/20/18 07:35 BUN 10.7 mg/dL (7-18) 09/20/18 07:35 Creatinine 0.7 mg/dL (0.55-1.3) 09/20/18 07:35 Est GFR (CKD-EPI)AfAm 113.98 09/20/18 07:35 Est GFR (CKD-EPI)NonAf 98.34 09/20/18 07:35 Random Glucose 65 mg/dL (74-106) L 09/20/18 07:35 Hemoglobin A1c % 5.0 % (4.2-6.3) 09/20/18 07:35 Calcium 8.5 mg/dL (8.5-10.1) 09/20/18 07:35 Phosphorus 3.1 mg/dL (2.5-4.9) 09/20/18 07:35 Magnesium 1.7 mg/dL (1.8-2.4) L 09/20/18 07:35 Total Bilirubin 2.0 mg/dL (0.2-1) H 09/20/18 07:35 Direct Bilirubin 0.8 mg/dL (0.0-0.2) H 09/20/18 07:35 AST 330 U/L (15-37) H 09/20/18 07:35 ALT 138 U/L (13-61) H 09/20/18 07:35 Alkaline Phosphatase 126 U/L (45-117) H 09/20/18 07:35 Creatine Kinase 652 U/L (26-308) H 09/20/18 07:35 Creatine Kinase Index 0.3 % (0.0-5.0) 09/20/18 07:35 CK-MB (CK-2) 2.4 ng/mL (0.5-3.6) 09/20/18 07:35 Troponin I < 0.02 ng/ml (0.00-0.05) 09/19/18 14:27 Total Protein 6.2 g/dl (6.4-8.2) L 09/20/18 07:35 Albumin 3.0 g/dl (3.4-5.0) L 09/20/18 07:35 Lipase 862 U/L (73-393) H 09/19/18 14:27 Vitamin B12 1299 pg/ml (193-986) H 09/19/18 14:27 Serum Folate 33 ng/mL (3.1-17.5) H 09/20/18 03:20 TSH 1.58 uIU/ml (0.358-3.74) 09/20/18 07:35 Urine Color Dk yellow 09/19/18 14:27 Urine Appearance Clear 09/19/18 14:27 Urine pH 6.5 (5.0-8.0) 09/19/18 14:27 Ur Specific [place] 1.026 (1.010-1.035) 09/19/18 14:27 Urine Protein 2+ (NEGATIVE) H 09/19/18 14:27 Urine Glucose (UA) Negative (NEGATIVE) 09/19/18 14:27 Urine Ketones 2+ (NEGATIVE) H 09/19/18 14:27 Urine Blood Negative (NEGATIVE) 09/19/18 14:27 Urine Nitrite Negative (NEGATIVE) 09/19/18 14:27 Urine Bilirubin 1+ (NEGATIVE) H 09/19/18 14:27 Urine Urobilinogen 1.0 mg/dL (0.2-1.0) 09/19/18 14:27 Ur Leukocyte Esterase Negative (NEGATIVE) 09/19/18 14:27 Urine WBC (Auto) 0 /hpf (0-5) 09/19/18 14:27 Urine RBC (Auto) 2 /hpf (0-4) 09/19/18 14:27 Urine Casts (Auto) 1 /lpf (0-8) 09/19/18 14:27 U Epithel Cells (Auto) 0.5 /HPF (0-5/HPF) 09/19/18 14:27 Urine Bacteria (Auto) 2.9 /hpf (NEGATIVE) 09/19/18 14:27 Stool Occult Blood Negative (NEGATIVE) 09/20/18 10:10 Opiates Screen Negative ng/ml (ZXGYRW=894) 09/20/18 04:30 Methadone Screen Positive ng/ml (FZZHUC=360) A* 09/20/18 04:30 Barbiturate Screen Negative ng/ml (AOFVKR=383) 09/20/18 04:30 Phencyclidine Screen Negative ng/ml (CUTOFF=25) 09/20/18 04:30 Ur Amphetamines Screen Negative ng/ml (PNAXRR=551) 09/20/18 04:30 MDMA (Ecstasy) Screen Negative ng/ml (JXWZLL=512) 09/20/18 04:30 Benzodiazepines Screen Negative ng/ml (NDNOEZ=036) 09/20/18 04:30 Cocaine Screen Negative ng/ml (CZMSTK=263) 09/20/18 04:30 U Marijuana (THC) Screen Positive ng/ml (CUTOFF=50) A* 09/20/18 04:30 Active Medications Current Medications Folic Acid (Folic Acid -) 1 mg PO DAILY RAD[facility] Heparin Sodium (Porcine) (Heparin -) 1,000 unit IVPUSH PRN PRN PRN Reason: Heparin Heparin Sodium (Porcine) (Heparin -) 5,000 unit IVPUSH PRN PRN PRN Reason: Heparin Lactated Ringer's (Lactated Ringers Solution) 1,000 ml in 1,000 mls @ 100 mls/ hr IV ASDIR RADHA Last Admin: 09/20/18 04:38 Dose: 100 mls/hr Heparin Sodium (Porcine) 25, (000 unit/ Sodium Chloride) 500 mls @ 20 mls/hr IV TITR RADHA; Protocol Lorazepam (Ativan Injection -) 1 mg IVPUSH Q1H PRN PRN Reason: CIWA 5-15 Last Admin: 09/20/18 14:10 Dose: 1 mg Lorazepam (Ativan Injection -) 2 mg IVPUSH Q2H PRN PRN Reason: CIWA15+ Methadone HCl (Dolophine -) 40 mg PO DAILY@0600 [facility] Last Admin: 09/20/18 16:13 Dose: 40 mg Multivitamins/Minerals/Vitamin C (Tab-A-Vit -) 1 tab PO DAILY [facility] Pantoprazole Sodium (Protonix Iv) 40 mg IVPUSH DAILY [facility] Last Admin: 09/20/18 10:05 Dose: 40 mg Thiamine HCl (Vitamin B1 Injection -) 200 mg IVPB DAILY [facility] Last Admin: 09/20/18 10:05 Dose: 200 mg ASSESSMENT/PLAN: 68 y.o. 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 Found to have alcoholic hepatitis. 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 No obvious hemorrhoids noted. -Pt's daughter states he has had similar episodes in the recent past -Denies further bleeding -Possible colonoscopy tomorrow -GI on board: Recs MRCP to evaluate for biliary obstrx/ r/o pancr pathology. Possible EGD tomorrow -Trend H&H -Protonix 40 -Holding rivaroxaban #History of PE -Heparin drip -Records w/ 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 EtOH abuse -Ativan PRN -CIWA 10 -Thiamine -Folic acid -[facility] transfer once d/c for detox #Hypokalemia -Repleted _Trend CMP #Hypomagnesemia -Repleted -Trend CMP #Hx substance abuse -On Methadone 40 #Macrocytic anemia -MCV 100 #QTc prolongation -qtc 507 -transfer to [facility] -repeat EKG #HTN -Holding chlorthalidone #HLD -Holding Atorvastatin #DVT PPX -Heparin drip #FEN -LR -Trend BMP; repleted mag & K -CLD; NPO @ midnight for EGD tomorrow #Dispo Tele Visit type - Emergency Visit Emergency Visit: No - New Patient This patient is new to me today: No - Critical Care Critical Care patient: No ATTENDING PHYSICIAN STATEMENT I saw and evaluated the patient. I reviewed the resident's note and discussed the case with the resident. I agree with the resident's findings and plan as documented. SUBJECTIVE: OBJECTIVE: ASSESSMENT AND PLAN:
[2018-09-20] MEDS: HEPARIN - 25,000 UNIT in SODIUM CHLORIDE 495 ML IV SCH ×2 (18:03→23:41)
[2018-09-20] MEDS ORDERED: ATORVASTATIN CA 20 MG TABLET (FP) PO SCH (22:00)
[2018-09-21] MEDS: METHADONE HCL 40 MG DISPERSABLE TABLET PO SCH (05:54)
[2018-09-21 06:36] LABS: EOS % 1.6 % (0-4.5); HEMATOCRIT 36.9 % (35.4-49); HEMOGLOBIN 12.4 GM/dL (11.7-16.9); LYMPH % 19.2 % (8-40); MCH 33.8 pg (25.7-33.7); MCHC 33.7 g/dl (32.0-35.9); MEAN CELL VOLUME 100.3 fl (80-96); MEAN PLT VOLUME 9.1 fl (7.5-11.1); MONO % 5.4 % (3.8-10.2); NEUT % 72.8 % (42.8-82.8); PLATELET COUNT 159 K/MM3 (134-434); RBC 3.68 M/mm3 (4.00-5.60); RDW 14.2 % (11.9-15.9); WHITE BLOOD COUNT 6.8 K/mm3 (4.0-10.0)
[2018-09-21 06:50] LABS: INR 0.97 (0.83-1.09); PROTHROMBIN TIME (PATIENT) 11.5 SEC (9.7-13.0)
[2018-09-21 06:58] LABS: ALBUMIN 3.5 g/dl (3.4-5.0); BILIRUBIN,TOTAL 2.1 mg/dL (0.2-1); BLOOD UREA NITROGEN 6.7 mg/dL (7-18); CALCIUM 9.4 mg/dL (8.5-10.1); CREATININE 0.7 mg/dL (0.55-1.3); MAGNESIUM 1.8 mg/dL (1.8-2.4); POTASSIUM 3.5 mmol/L (3.5-5.1)
[2018-09-21] MEDS: LORazepam 2 MG/ML SDV VIAL IVPUSH PRN ×3 (08:06→21:24)
[2018-09-21] MEDS ORDERED: POTASSIUM PHOSPHATE 15 MM in SODIUM CHLORIDE 250 ML IVPB ONE (09:00)
[2018-09-21] MEDS ORDERED: PANTOPRAZOLE SODIUM 40 MG VIAL IVPUSH SCH (10:00)
[2018-09-21] MEDS: FOLIC ACID 1 MG TABLET (FP) PO SCH (10:13)
[2018-09-21] MEDS: MULTIVITAMINS (DAILY MVI) TABLET (FP) PO SCH (10:15)
[2018-09-21] MEDS: THIAMINE HCL 200 MG/2 ML VIAL IVPB SCH (12:23)
--- NOTE | 2018-09-21 13:03 | PN ---
Physical Exam: SUBJECTIVE: Patient seen and examined. Tremulous. Denies blood in stool/ nausea / vomiting/ abdominal pain/ chills/ fevers. OBJECTIVE: Vital Signs Period Temp Pulse Resp BP Sys/Plaza Pulse Ox Last 24 Hr 98.5 F-99.5 F 78-90 18-20 131-151/77-90 97-97 GENERAL: AOx3. In no acute distress. HEENT: NCAT. No scleral icterus. Moist mucous membranes. LUNGS: CTABL. No incr work of breathing. HEART: Regular rate and rhythm, S1, S2 without murmurs ABDOMEN: Soft, nontender, nondistended, normoactive bowel sounds. EXTREMITIES: 2+ pulses, warm, well-perfused, no edema. Tremulous. NEUROLOGICAL: Normal gait observed. Sensory intact b/l UE & LE. Full ROM in b/l UE & LE. PSYCH: Denies AVH SKIN: No rashes/ lesions noted Laboratory Results - last 24 hr Laboratory Last Values WBC 6.8 K/mm3 (4.0-10.0) 09/21/18 06:02 RBC 3.68 M/mm3 (4.00-5.60) L 09/21/18 06:02 Hgb 12.4 GM/dL (11.7-16.9) 09/21/18 06:02 Hct 36.9 % (35.4-49) 09/21/18 06:02 MCV 100.3 fl (80-96) H 09/21/18 06:02 MCH 33.8 pg (25.7-33.7) H 09/21/18 06:02 MCHC 33.7 g/dl (32.0-35.9) 09/21/18 06:02 RDW 14.2 % (11.9-15.9) 09/21/18 06:02 Plt Count 159 K/MM3 (134-434) 09/21/18 06:02 MPV 9.1 fl (7.5-11.1) 09/21/18 06:02 Absolute Neuts (auto) 5.0 K/mm3 (1.5-8.0) 09/21/18 06:02 Neutrophils % 72.8 % (42.8-82.8) 09/21/18 06:02 Lymphocytes % 19.2 % (8-40) 09/21/18 06:02 Monocytes % 5.4 % (3.8-10.2) 09/21/18 06:02 Eosinophils % 1.6 % (0-4.5) D 09/21/18 06:02 Basophils % 1.0 % (0-2.0) 09/21/18 06:02 Nucleated RBC % 0 % (0-0) 09/21/18 06:02 PT with INR 11.50 SEC (9.7-13.0) 09/21/18 06:02 INR 0.97 (0.83-1.09) 09/21/18 06:02 PTT (Actin FS) 60.2 SECONDS (25.2-36.5) H 09/21/18 06:02 Sodium 137 mmol/L (136-145) 09/21/18 06:02 Potassium 3.5 mmol/L (3.5-5.1) 09/21/18 06:02 Chloride 98 mmol/L (98-107) 09/21/18 06:02 Carbon Dioxide 30 mmol/L (21-32) 09/21/18 06:02 Anion Gap 9 MMOL/L (8-16) 09/21/18 06:02 BUN 6.7 mg/dL (7-18) L 09/21/18 06:02 Creatinine 0.7 mg/dL (0.55-1.3) 09/21/18 06:02 Est GFR (CKD-EPI)AfAm 113.98 09/21/18 06:02 Est GFR (CKD-EPI)NonAf 98.34 09/21/18 06:02 Random Glucose 109 mg/dL (74-106) H 09/21/18 06:02 Hemoglobin A1c % 5.0 % (4.2-6.3) 09/20/18 07:35 Calcium 9.4 mg/dL (8.5-10.1) 09/21/18 06:02 Phosphorus 2.0 mg/dL (2.5-4.9) L 09/21/18 06:02 Magnesium 1.8 mg/dL (1.8-2.4) 09/21/18 06:02 Total Bilirubin 2.1 mg/dL (0.2-1) H 09/21/18 06:02 Direct Bilirubin 0.8 mg/dL (0.0-0.2) H 09/20/18 07:35 AST 341 U/L (15-37) H 09/21/18 06:02 ALT 157 U/L (13-61) H 09/21/18 06:02 Alkaline Phosphatase 144 U/L (45-117) H 09/21/18 06:02 Creatine Kinase 652 U/L (26-308) H 09/20/18 07:35 Creatine Kinase Index 0.3 % (0.0-5.0) 09/20/18 07:35 CK-MB (CK-2) 2.4 ng/mL (0.5-3.6) 09/20/18 07:35 Troponin I < 0.02 ng/ml (0.00-0.05) 09/19/18 14:27 Total Protein 7.0 g/dl (6.4-8.2) 09/21/18 06:02 Albumin 3.5 g/dl (3.4-5.0) 09/21/18 06:02 Lipase 862 U/L (73-393) H 09/19/18 14:27 Vitamin B12 1299 pg/ml (193-986) H 09/19/18 14:27 Serum Folate 33 ng/mL (3.1-17.5) H 09/20/18 03:20 TSH 1.58 uIU/ml (0.358-3.74) 09/20/18 07:35 Urine Color Dk yellow 09/19/18 14:27 Urine Appearance Clear 09/19/18 14:27 Urine pH 6.5 (5.0-8.0) 09/19/18 14:27 Ur Specific [place] 1.026 (1.010-1.035) 09/19/18 14:27 Urine Protein 2+ (NEGATIVE) H 09/19/18 14:27 Urine Glucose (UA) Negative (NEGATIVE) 09/19/18 14:27 Urine Ketones 2+ (NEGATIVE) H 09/19/18 14:27 Urine Blood Negative (NEGATIVE) 09/19/18 14:27 Urine Nitrite Negative (NEGATIVE) 09/19/18 14:27 Urine Bilirubin 1+ (NEGATIVE) H 09/19/18 14:27 Urine Urobilinogen 1.0 mg/dL (0.2-1.0) 09/19/18 14:27 Ur Leukocyte Esterase Negative (NEGATIVE) 09/19/18 14:27 Urine WBC (Auto) 0 /hpf (0-5) 09/19/18 14:27 Urine RBC (Auto) 2 /hpf (0-4) 09/19/18 14:27 Urine Casts (Auto) 1 /lpf (0-8) 09/19/18 14:27 U Epithel Cells (Auto) 0.5 /HPF (0-5/HPF) 09/19/18 14:27 Urine Bacteria (Auto) 2.9 /hpf (NEGATIVE) 09/19/18 14:27 Stool Occult Blood Negative (NEGATIVE) 09/20/18 10:10 Opiates Screen Negative ng/ml (YLDZKT=102) 09/20/18 04:30 Methadone Screen Positive ng/ml (KJKNRY=146) A* 09/20/18 04:30 Barbiturate Screen Negative ng/ml (ZMZJRD=620) 09/20/18 04:30 Phencyclidine Screen Negative ng/ml (CUTOFF=25) 09/20/18 04:30 Ur Amphetamines Screen Negative ng/ml (DTGHZJ=620) 09/20/18 04:30 MDMA (Ecstasy) Screen Negative ng/ml (MRXCHJ=478) 09/20/18 04:30 Benzodiazepines Screen Negative ng/ml (WGHNEG=680) 09/20/18 04:30 Cocaine Screen Negative ng/ml (LGZVCT=980) 09/20/18 04:30 U Marijuana (THC) Screen Positive ng/ml (CUTOFF=50) A* 09/20/18 04:30 Active Medications Current Medications Folic Acid (Folic Acid -) 1 mg PO DAILY [facility] Last Admin: 09/21/18 10:13 Dose: Not Given Lactated Ringer's (Lactated Ringers Solution) 1,000 ml in 1,000 mls @ 100 mls/ hr IV ASDIR RADHA Last Admin: 09/20/18 23:41 Dose: 100 mls/hr Potassium Phosphate 15 mm/ (Sodium Chloride) 255 mls @ 62.5 mls/hr IVPB ONCE ONE Stop: 09/21/18 13:04 Last Admin: 09/21/18 10:12 Dose: 62.5 mls/hr Lorazepam (Ativan Injection -) 1 mg IVPUSH Q1H PRN PRN Reason: CIWA 5-15 Last Admin: 09/21/18 08:06 Dose: 1 mg Lorazepam (Ativan Injection -) 2 mg IVPUSH Q2H PRN PRN Reason: CIWA15+ Methadone HCl (Dolophine -) 40 mg PO DAILY@0600 [facility] Last Admin: 09/21/18 05:54 Dose: 40 mg Multivitamins/Minerals/Vitamin C (Tab-A-Vit -) 1 tab PO DAILY [facility] Last Admin: 09/21/18 10:15 Dose: Not Given Pantoprazole Sodium (Protonix Iv) 40 mg IVPUSH DAILY [facility] Last Admin: 09/21/18 10:14 Dose: 40 mg Thiamine HCl (Vitamin B1 Injection -) 200 mg IVPB DAILY [facility] Last Admin: 09/21/18 12:23 Dose: 200 mg ASSESSMENT/PLAN: 68 y.o. 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 Found to have alcoholic hepatitis. 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 No intrahepatic or extrahepatic biliary ductal dilatation. No cholelithiasis. No choledocholithiasis. #Possible GIB -F/u EGD results -FOBT neg -Pt's daughter states he has had similar episodes in the recent past -Denies further bleeding -GI on board -Hgb stable -Protonix 40 -Holding rivaroxaban #History of PE -Heparin drip, restarting tonight (d/c'd prior to EGD) -Records w/ 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 EtOH abuse -Ativan PRN -CIWA 7 today -Thiamine -Folic acid -[facility] transfer once d/c for detox #Hypokalemia -Resolved #Hypomagnesemia -Resolved #Hx substance abuse -On Methadone 40 #Macrocytic anemia -MCV 100 -2/2 alcohol #QTc prolongation -qtc 472 on repea ekg -Tele monitor #HTN -Holding chlorthalidone #HLD -Holding Atorvastatin #DVT PPX -Heparin drip #FEN -LR -Trend BMP; replete prn -Fat/ sodium controlled diet Visit type - Emergency Visit Emergency Visit: No - New Patient This patient is new to me today: No - Critical Care Critical Care patient: No ATTENDING PHYSICIAN STATEMENT I saw and evaluated the patient. I reviewed the resident's note and discussed the case with the resident. I agree with the resident's findings and plan as documented. SUBJECTIVE: OBJECTIVE: ASSESSMENT AND PLAN:
--- NOTE | 2018-09-21 13:18 | PN ---
Progress Note (short form) - Note Progress Note: EGD complete. Report left in procedural section of physical chart and to be scanned into [employer]
[2018-09-21] MEDS ORDERED: HEPARIN NA (PORCINE) 5,000 UNITS/ML 1ML VIAL IVPUSH PRN ×2 (14:21)
--- NOTE | 2018-09-21 14:40 | PN ---
Teaching Attending Note Name of Resident: Adri Vera ATTENDING PHYSICIAN STATEMENT I saw and evaluated the patient. I reviewed the resident's note and discussed the case with the resident. I agree with the resident's findings and plan as documented. SUBJECTIVE: Feeling better. No abdominal pain/nausea/vomiting/fever/chills. No sweats/hallucinations/seizures OBJECTIVE: Afebrile, Hemodynamically Stable. Tremor improving Last Vital Signs Temp Pulse Resp BP Pulse Ox 99.2 F 86 18 150/91 99 09/21/18 13:26 09/21/18 13:26 09/21/18 13:26 09/21/18 13:26 09/21/18 13:26 Heart - S1, S2, RRR Lungs - clear to auscultation Abdomen - Soft, non-tender. Extremities - mild tremor. Neuro - AAO x 3. Tone/Power normal all 4 extremities. GLORIA. EOMI. No nystagmus. Laboratory Results - last 24 hr 09/20/18 09/21/18 09/21/18 21:35 06:02 06:02 WBC 6.8 RBC 3.68 L Hgb 12.4 Hct 36.9 MCV 100.3 H MCH 33.8 H MCHC 33.7 RDW 14.2 Plt Count 159 MPV 9.1 Absolute Neuts (auto) 5.0 Neutrophils % 72.8 Lymphocytes % 19.2 Monocytes % 5.4 Eosinophils % 1.6 D Basophils % 1.0 Nucleated RBC % 0 PT with INR 11.50 INR 0.97 PTT (Actin FS) 48.1 H Sodium Potassium Chloride Carbon Dioxide Anion Gap BUN Creatinine Est GFR (CKD-EPI)AfAm Est GFR (CKD-EPI)NonAf Random Glucose Calcium Phosphorus Magnesium Total Bilirubin AST ALT Alkaline Phosphatase Total Protein Albumin 09/21/18 09/21/18 06:02 06:02 WBC RBC Hgb Hct MCV MCH MCHC RDW Plt Count MPV Absolute Neuts (auto) Neutrophils % Lymphocytes % Monocytes % Eosinophils % Basophils % Nucleated RBC % PT with INR INR PTT (Actin FS) 60.2 H Sodium 137 Potassium 3.5 Chloride 98 Carbon Dioxide 30 Anion Gap 9 BUN 6.7 L Creatinine 0.7 Est GFR (CKD-EPI)AfAm 113.98 Est GFR (CKD-EPI)NonAf 98.34 Random Glucose 109 H Calcium 9.4 Phosphorus 2.0 L Magnesium 1.8 Total Bilirubin 2.1 H AST 341 H ALT 157 H Alkaline Phosphatase 144 H Total Protein 7.0 Albumin 3.5 Current Medications Generic Name Dose Route Start Last Admin Trade Name [place] PRN Reason Stop Dose Admin Folic Acid 1 mg 09/21/18 10:00 09/21/18 10:13 Folic Acid - PO Not Given DAILY RADHA Heparin Sodium (Porcine) 1,000 unit 09/21/18 14:21 Heparin - IVPUSH PRN PRN Heparin Heparin Sodium (Porcine) 5,000 unit 09/21/18 14:21 Heparin - IVPUSH PRN PRN Heparin Lactated Ringer's 1,000 ml in 1,000 mls @ 100 mls/hr 09/20/18 17:45 09/20/18 23:41 Lactated Ringers Solution IV 100 mls/hr ASDIR RADHA Administration Heparin Sodium (Porcine) 25, 500 mls @ 20 mls/hr 09/21/18 20:00 000 unit/ Sodium Chloride IV TITR RADHA Protocol 1,000 UNIT/HR Lorazepam 1 mg 09/20/18 17:45 09/21/18 08:06 Ativan Injection - IVPUSH 1 mg Q1H PRN Administration CIWA 5-15 Lorazepam 2 mg 09/20/18 17:45 Ativan Injection - IVPUSH Q2H PRN CIWA15+ Methadone HCl 40 mg 09/20/18 16:00 09/21/18 05:54 Dolophine - PO 40 mg DAILY@0600 [facility] Administration Multivitamins/Minerals/Vitamin C 1 tab 09/21/18 10:00 09/21/18 10:15 Tab-A-Vit - PO Not Given DAILY [facility] Pantoprazole Sodium 40 mg 09/22/18 10:00 Protonix - PO DAILY [facility] Thiamine HCl 200 mg 09/21/18 10:00 09/21/18 12:23 Vitamin B1 Injection - IVPB 200 mg DAILY [facility] Administration ASSESSMENT AND PLAN: 68 year old male with HTN, HLD, PE (on Xarelto), Chronic bilateral knee pain, Tobacco use, Polysubstance Abuse (including Alcohol and Heroin, on Methadone), brought to ED by his brother with complaints of dizziness and numbness of hands bilaterally, found to have elevated lipase, transaminases, CK. 1. Alcoholic Hepatitis Elevated Transaminases Abdo US - Diffuse hepatic steatosis, no evidence of acute cholecystitis or cholelithiasis. MRCP - fatty liver, no intra- or extra-hepatic biliary dilatation. Reported history of dark stool. No active bleeding. EGD scheduled today. LFTs trending down, will monitor. Abstinence from Alcohol urged. 2. Acute Alcohol withdrawal - no hallucinations/diaphoresis Ativan as per [place] Thiamine, Folic Acid, [facility] consulted. 3. Peripheral Neuropathy sec to Alcohol excess. CT Brain - no acute intracranial findings. 4. Dizziness - sec to dehydration, resolved with IV hydration CT Head neg PT eval. 5. Hypokalemia/Hypomagnesemia - repleted. 6. Hx opiate use, on Methadone - dose confirmed. 7. QTc prolonged. Electrolytes repleted. Repeat ECG shows improved QTc. No tele- events 8. Macrocytic Anemia sec to Alcohol excess. B12 level 1299, Folate 33 9. Hx PE - previously on Xarelto. Xarelto held in favor of heparin drip pending EGD. To resume post-EGD. 10. HTN - Chlorthalidone held. 11. HLD - Atorvastatin held due to elevated transaminases. 12. Hypophosphatemia - will replete. DVT Px - on Heparin drip GI Px - on PPI.
[2018-09-21] MEDS: HEPARIN - 25,000 UNIT in SODIUM CHLORIDE 495 ML IV SCH (20:00)
[2018-09-21] MEDS: LACTATED RINGERS SOLUTION 1,000 ML/1,000 ML INFUS.BAG IV SCH (21:22)
[2018-09-22] MEDS: LORazepam 2 MG/ML SDV VIAL IVPUSH PRN ×4 (02:08→17:50)
[2018-09-22] MEDS ORDERED: PT OWN MED DRAWER 7, Y5N ONE (05:13)
[2018-09-22] MEDS: HEPARIN - 25,000 UNIT in SODIUM CHLORIDE 495 ML IV SCH (06:00)
[2018-09-22] MEDS: METHADONE HCL 40 MG DISPERSABLE TABLET PO SCH (06:01)
[2018-09-22] MEDS: LACTATED RINGERS SOLUTION 1,000 ML/1,000 ML INFUS.BAG IV SCH ×2 (07:11→17:46)
[2018-09-22] MEDS: KCL 10 MEQ IVPB 10 MEQ/100 ML INFUS.BAG IVPB SCH (07:11)
[2018-09-22] MEDS: FOLIC ACID 1 MG TABLET (FP) PO SCH (09:23)
[2018-09-22] MEDS: MULTIVITAMINS (DAILY MVI) TABLET (FP) PO SCH (09:23)
[2018-09-22] MEDS: THIAMINE HCL 200 MG/2 ML VIAL IVPB SCH (09:27)
[2018-09-22 09:53] LABS: BASO % 0.6 % (0-2.0); EOS % 2.4 % (0-4.5); HEMATOCRIT 39.3 % (35.4-49); HEMOGLOBIN 13.2 GM/dL (11.7-16.9); LYMPH % 25.7 % (8-40); MCH 33.6 pg (25.7-33.7); MCHC 33.7 g/dl (32.0-35.9); MEAN CELL VOLUME 99.6 fl (80-96); MEAN PLT VOLUME 9.8 fl (7.5-11.1); MONO % 6.2 % (3.8-10.2); NEUT % 65.1 % (42.8-82.8); PLATELET COUNT 169 K/MM3 (134-434); RBC 3.94 M/mm3 (4.00-5.60); RDW 14.7 % (11.9-15.9); WHITE BLOOD COUNT 7.1 K/mm3 (4.0-10.0)
[2018-09-22] MEDS ORDERED: PANTOPRAZOLE 40 MG TABLET (FP) PO SCH (10:00)
--- NOTE | 2018-09-22 12:42 | EKG ---
Test Reason : Blood Pressure : / mmHG Vent. Rate : 103 BPM Atrial Rate : 103 BPM P-R Int : 192 ms QRS Dur : 098 ms QT Int : 376 ms P-R-T Axes : 044 -04 024 degrees QTc Int : 492 ms SINUS TACHYCARDIA POSSIBLE LEFT ATRIAL ENLARGEMENT INFERIOR INFARCT , AGE UNDETERMINED ABNORMAL ECG WHEN COMPARED WITH ECG OF 20-SEP-2018 12:43, NO SIGNIFICANT CHANGE WAS FOUND Confirmed by JOSE DANIEL JORDAN MD ([id number]) on 09/22/2018 12:42:21 PM Referred By: Confirmed By:JOSE DANIEL JORDAN MD
[2018-09-22 13:59] LABS: ALBUMIN 3.6 g/dl (3.4-5.0); BILIRUBIN,TOTAL 1.6 mg/dL (0.2-1); BLOOD UREA NITROGEN 10.2 mg/dL (7-18); CALCIUM 9.4 mg/dL (8.5-10.1); CREATININE 0.8 mg/dL (0.55-1.3); MAGNESIUM 1.8 mg/dL (1.8-2.4); POTASSIUM 3.1 mmol/L (3.5-5.1); TOT PROT 7.4 g/dl (6.4-8.2)
[2018-09-22] MEDS ORDERED: MAGNESIUM SULF 50% (8.12 MEQ/2 ML-1 GM VIAL) IVPB ONE (14:42)
--- NOTE | 2018-09-22 14:42 | PN ---
Teaching Attending Note Name of Resident: Adri Vera ATTENDING PHYSICIAN STATEMENT I saw and evaluated the patient. I reviewed the resident's note and discussed the case with the resident. I agree with the resident's findings and plan as documented. SUBJECTIVE: Feeling better. No abdominal pain/nausea/vomiting/fever/chills. No sweats/hallucinations/seizures OBJECTIVE: Afebrile, Hemodynamically Stable. Some tachycardic episodes overnight. Tremor improving Last Vital Signs Temp Pulse Resp BP Pulse Ox 98.3 F 95 H 20 125/74 100 09/22/18 05:00 09/22/18 05:00 09/22/18 05:00 09/22/18 05:00 09/21/18 21:00 Heart - S1, S2, RRR Lungs - clear to auscultation Abdomen - Soft, non-tender. Extremities - mild tremor. NO edema, no calf tenderness. Neuro - AAO x 3. Tone/Power normal all 4 extremities. GLORIA. EOMI. No nystagmus. Laboratory Results - last 24 hr 09/22/18 09/22/18 09/22/18 08:15 09:15 09:15 WBC 7.1 RBC 3.94 L Hgb 13.2 Hct 39.3 MCV 99.6 H MCH 33.6 MCHC 33.7 RDW 14.7 Plt Count 169 MPV 9.8 Absolute Neuts (auto) 4.6 Neutrophils % 65.1 Lymphocytes % 25.7 D Monocytes % 6.2 Eosinophils % 2.4 Basophils % 0.6 Nucleated RBC % 0 PTT (Actin FS) 36.6 H Sodium 139 Potassium 3.1 L Chloride 101 Carbon Dioxide 28 Anion Gap 10 BUN 10.2 Creatinine 0.8 Est GFR (CKD-EPI)AfAm 107.89 Est GFR (CKD-EPI)NonAf 93.09 Random Glucose 103 Calcium 9.4 Phosphorus 4.0 Magnesium 1.8 Total Bilirubin 1.6 H AST 253 H ALT 153 H Alkaline Phosphatase 145 H Total Protein 7.4 Albumin 3.6 Current Medications Generic Name Dose Route Start Last Admin Trade Name Freq PRN Reason Stop Dose Admin Folic Acid 1 mg 09/21/18 10:00 09/22/18 09:23 Folic Acid - PO 1 mg DAILY RAD[facility] Administration Lactated Ringer's 1,000 ml in 1,000 mls @ 100 mls/hr 09/20/18 17:45 09/22/18 07:11 Lactated Ringers Solution IV Not Given ASDIR RADHA Lorazepam 1 mg 09/20/18 17:45 09/22/18 14:04 Ativan Injection - IVPUSH 1 mg Q1H PRN Administration CIWA 5-15 Lorazepam 2 mg 09/20/18 17:45 09/22/18 02:08 Ativan Injection - IVPUSH 2 mg Q2H PRN Administration CIWA15+ Methadone HCl 40 mg 09/20/18 16:00 09/22/18 06:01 Dolophine - PO 40 mg DAILY@0600 RAD[facility] Administration Multivitamins/Minerals/Vitamin C 1 tab 09/21/18 10:00 09/22/18 09:23 Tab-A-Vit - PO 1 tab DAILY RAD[facility] Administration Pantoprazole Sodium 40 mg 09/22/18 10:00 09/22/18 09:23 Protonix - PO 40 mg DAILY [facility] Administration Potassium Chloride 40 meq 09/22/18 14:45 K-Dur - PO 09/22/18 18:46 Q4H RADHA Rivaroxaban 20 mg 09/22/18 18:00 Xarelto PO DAILY@1800 [facility] Thiamine HCl 200 mg 09/21/18 10:00 09/22/18 09:27 Vitamin B1 Injection - IVPB 200 mg DAILY RADHA Administration ASSESSMENT AND PLAN: 68 year old male with HTN, HLD, PE (on Xarelto), Chronic bilateral knee pain, Tobacco use, Polysubstance Abuse (including Alcohol and Heroin, on Methadone), brought to ED by his brother with complaints of dizziness and numbness of hands bilaterally, found to have elevated lipase, transaminases, CK. 1. Alcoholic Hepatitis Elevated Transaminases Abdo US - Diffuse hepatic steatosis, no evidence of acute cholecystitis or cholelithiasis. MRCP - fatty liver, no intra- or extra-hepatic biliary dilatation. Reported history of dark stool. No active bleeding. s/p EGD 09/05/17 - Stoner's, Gastritis, no active bleeding. On protonix BID LFTs trending down, will monitor. Abstinence from Alcohol urged. 2. Acute Alcohol withdrawal - no hallucinations/diaphoresis, mild tachycardia. Ativan as per [facility] Thiamine, Folic Acid, [facility] consulted. 3. Peripheral Neuropathy sec to Alcohol excess. CT Brain - no acute intracranial findings. 4. Dizziness - sec to dehydration, resolved with IV hydration CT Head neg PT eval. 5. Hypokalemia/Hypomagnesemia - repleted. 6. Hx opiate use, on Methadone - dose confirmed. 7. QTc prolonged. Electrolytes repleted. Repeat ECG shows improved QTc. No tele- events 8. Macrocytic Anemia sec to Alcohol excess. B12 level 1299, Folate 33 9. Hx PE - Xarelto resumed post-EGD. 10. HTN - Chlorthalidone held. 11. HLD - Atorvastatin held due to elevated transaminases. 12. Hypophosphatemia - repleted. DVT Px - on Xarelto GI Px - on PPI.
[2018-09-22] MEDS: POTASSIUM CHLORIDE TABS 20 MEQ TABLET.ER (FP) PO SCH ×2 (14:53→17:46)
--- NOTE | 2018-09-22 16:51 | PATH ---
Surgical Pathology Report Patient Name: TITA PULIDO [facility]. Rec. #: [id number] /Age/Gender: 1950 (Age: 68) / M Account: [id number] Location: 4 W TELEMETRY U Taken: 09/21/2018 Received: 09/21/2018 Reported: 09/22/2018 Physicians: Dante Hager MD Specimen(s) Received A: STOMACH BODY B: GE JUNCTION Clinical History GI bleed Postoperative diagnosis: Portal gastropathy, rule out Yates's Final Diagnosis A. STOMACH, BODY, BIOPSY: GASTRIC BODY MUCOSA WITH MODERATE CHRONIC GASTRITIS. IMMUNOHISTOCHEMICAL STAIN FOR H. PYLORI IS POSITIVE (MANY). B. GE JUNCTION BIOPSY: SQUAMOCOLUMNAR MUCOSA WITH MODERATE CHRONIC INFLAMMATION, CHANGES OF MODERATE REFLUX ESOPHAGITIS, AND INTESTINAL METAPLASIA CONSISTENT WITH YATES'S ESOPHAGUS IN A CONCORDANT CLINICAL SETTING. NO DYSPLASIA IDENTIFIED. Electronically Signed Karol Neal M.D. Gross Description A. Received in formalin, labeled "biopsy body of stomach" are 2 tian, irregular portions of soft tissue measuring 0.2 and 0.3 cm. in greatest dimension. The specimens are submitted in toto in one cassette. B. Received in formalin, labeled "biopsy GE junction" is a tian, irregular portion of soft tissue measuring 0.4 cm. in greatest dimension. The specimen is submitted in toto in one cassette. 09/21/2018 saudi09/21/2018
--- NOTE | 2018-09-22 16:56 | PN ---
Physical Exam: SUBJECTIVE: Patient seen and examined. Pt amenable to detox at [facility]. OBJECTIVE: Vital Signs Period Temp Pulse Resp BP Sys/Plaza Pulse Ox Last 24 Hr 97.8 F-99.6 F 95-120 20-20 123-151/74-110 100-100 GENERAL: AOx3. NAD HEENT: NCAT. No scleral icterus. Moist mucous membranes. LUNGS: CTABL. No incr work of breathing. HEART: Regular rate and rhythm, S1, S2 without murmurs ABDOMEN: Soft, nontender, nondistended, normoactive bowel sounds. EXTREMITIES: 2+ pulses, warm, well-perfused, no edema. Mildly tremulous. NEUROLOGICAL: Normal gait observed. Denies parasthesias. PSYCH: Denies AVH SKIN: No rashes/ lesions noted Laboratory Results - last 24 hr Laboratory Last Values WBC 7.1 K/mm3 (4.0-10.0) 09/22/18 09:15 RBC 3.94 M/mm3 (4.00-5.60) L 09/22/18 09:15 Hgb 13.2 GM/dL (11.7-16.9) 09/22/18 09:15 Hct 39.3 % (35.4-49) 09/22/18 09:15 MCV 99.6 fl (80-96) H 09/22/18 09:15 MCH 33.6 pg (25.7-33.7) 09/22/18 09:15 MCHC 33.7 g/dl (32.0-35.9) 09/22/18 09:15 RDW 14.7 % (11.9-15.9) 09/22/18 09:15 Plt Count 169 K/MM3 (134-434) 09/22/18 09:15 MPV 9.8 fl (7.5-11.1) 09/22/18 09:15 Absolute Neuts (auto) 4.6 K/mm3 (1.5-8.0) 09/22/18 09:15 Neutrophils % 65.1 % (42.8-82.8) 09/22/18 09:15 Lymphocytes % 25.7 % (8-40) D 09/22/18 09:15 Monocytes % 6.2 % (3.8-10.2) 09/22/18 09:15 Eosinophils % 2.4 % (0-4.5) 09/22/18 09:15 Basophils % 0.6 % (0-2.0) 09/22/18 09:15 Nucleated RBC % 0 % (0-0) 09/22/18 09:15 PT with INR 11.50 SEC (9.7-13.0) 09/21/18 06:02 INR 0.97 (0.83-1.09) 09/21/18 06:02 PTT (Actin FS) 36.6 SECONDS (25.2-36.5) H 09/22/18 09:15 Sodium 139 mmol/L (136-145) 09/22/18 08:15 Potassium 3.1 mmol/L (3.5-5.1) L 09/22/18 08:15 Chloride 101 mmol/L (98-107) 09/22/18 08:15 Carbon Dioxide 28 mmol/L (21-32) 09/22/18 08:15 Anion Gap 10 MMOL/L (8-16) 09/22/18 08:15 BUN 10.2 mg/dL (7-18) 09/22/18 08:15 Creatinine 0.8 mg/dL (0.55-1.3) 09/22/18 08:15 Est GFR (CKD-EPI)AfAm 107.89 09/22/18 08:15 Est GFR (CKD-EPI)NonAf 93.09 09/22/18 08:15 Random Glucose 103 mg/dL (74-106) 09/22/18 08:15 Hemoglobin A1c % 5.0 % (4.2-6.3) 09/20/18 07:35 Calcium 9.4 mg/dL (8.5-10.1) 09/22/18 08:15 Phosphorus 4.0 mg/dL (2.5-4.9) 09/22/18 08:15 Magnesium 1.8 mg/dL (1.8-2.4) 09/22/18 08:15 Total Bilirubin 1.6 mg/dL (0.2-1) H 09/22/18 08:15 Direct Bilirubin 0.8 mg/dL (0.0-0.2) H 09/20/18 07:35 AST 253 U/L (15-37) H 09/22/18 08:15 ALT 153 U/L (13-61) H 09/22/18 08:15 Alkaline Phosphatase 145 U/L (45-117) H 09/22/18 08:15 Creatine Kinase 652 U/L (26-308) H 09/20/18 07:35 Creatine Kinase Index 0.3 % (0.0-5.0) 09/20/18 07:35 CK-MB (CK-2) 2.4 ng/mL (0.5-3.6) 09/20/18 07:35 Troponin I < 0.02 ng/ml (0.00-0.05) 09/19/18 14:27 Total Protein 7.4 g/dl (6.4-8.2) 09/22/18 08:15 Albumin 3.6 g/dl (3.4-5.0) 09/22/18 08:15 Lipase 862 U/L (73-393) H 09/19/18 14:27 Vitamin B12 1299 pg/ml (193-986) H 09/19/18 14:27 Serum Folate 33 ng/mL (3.1-17.5) H 09/20/18 03:20 TSH 1.58 uIU/ml (0.358-3.74) 09/20/18 07:35 Urine Color Dk yellow 09/19/18 14:27 Urine Appearance Clear 09/19/18 14:27 Urine pH 6.5 (5.0-8.0) 09/19/18 14:27 Ur Specific Hedley 1.026 (1.010-1.035) 09/19/18 14:27 Urine Protein 2+ (NEGATIVE) H 09/19/18 14:27 Urine Glucose (UA) Negative (NEGATIVE) 09/19/18 14:27 Urine Ketones 2+ (NEGATIVE) H 09/19/18 14:27 Urine Blood Negative (NEGATIVE) 09/19/18 14:27 Urine Nitrite Negative (NEGATIVE) 09/19/18 14:27 Urine Bilirubin 1+ (NEGATIVE) H 09/19/18 14:27 Urine Urobilinogen 1.0 mg/dL (0.2-1.0) 09/19/18 14:27 Ur Leukocyte Esterase Negative (NEGATIVE) 09/19/18 14:27 Urine WBC (Auto) 0 /hpf (0-5) 09/19/18 14:27 Urine RBC (Auto) 2 /hpf (0-4) 09/19/18 14:27 Urine Casts (Auto) 1 /lpf (0-8) 09/19/18 14:27 U Epithel Cells (Auto) 0.5 /HPF (0-5/HPF) 09/19/18 14:27 Urine Bacteria (Auto) 2.9 /hpf (NEGATIVE) 09/19/18 14:27 Stool Occult Blood Negative (NEGATIVE) 09/20/18 10:10 Opiates Screen Negative ng/ml (AEGRML=614) 09/20/18 04:30 Methadone Screen Positive ng/ml (KQDEOG=709) A* 09/20/18 04:30 Barbiturate Screen Negative ng/ml (YMBVXC=916) 09/20/18 04:30 Phencyclidine Screen Negative ng/ml (CUTOFF=25) 09/20/18 04:30 Ur Amphetamines Screen Negative ng/ml (RXTVYL=670) 09/20/18 04:30 MDMA (Ecstasy) Screen Negative ng/ml (AZURLT=668) 09/20/18 04:30 Benzodiazepines Screen Negative ng/ml (AJLNQA=375) 09/20/18 04:30 Cocaine Screen Negative ng/ml (CIJUHS=200) 09/20/18 04:30 U Marijuana (THC) Screen Positive ng/ml (CUTOFF=50) A* 09/20/18 04:30 Active Medications Current Medications Folic Acid (Folic Acid -) 1 mg PO DAILY [facility] Last Admin: 09/22/18 09:23 Dose: 1 mg Lactated Ringer's (Lactated Ringers Solution) 1,000 ml in 1,000 mls @ 100 mls/ hr IV ASDIR [facility] Last Admin: 09/22/18 07:11 Dose: Not Given Lorazepam (Ativan Injection -) 1 mg IVPUSH Q1H PRN PRN Reason: CIWA 5-15 Last Admin: 09/22/18 14:04 Dose: 1 mg Lorazepam (Ativan Injection -) 2 mg IVPUSH Q2H PRN PRN Reason: CIWA15+ Last Admin: 09/22/18 02:08 Dose: 2 mg Methadone HCl (Dolophine -) 40 mg PO DAILY@0600 [facility] Last Admin: 09/22/18 06:01 Dose: 40 mg Multivitamins/Minerals/Vitamin C (Tab-A-Vit -) 1 tab PO DAILY [facility] Last Admin: 09/22/18 09:23 Dose: 1 tab Pantoprazole Sodium (Protonix -) 40 mg PO DAILY [facility] Last Admin: 09/22/18 09:23 Dose: 40 mg Potassium Chloride (K-Dur -) 40 meq PO Q4H [facility] Stop: 09/22/18 18:46 Last Admin: 09/22/18 14:53 Dose: 40 meq Rivaroxaban (Xarelto) 20 mg PO DAILY@1800 RAD[facility] Thiamine HCl (Vitamin B1 Injection -) 200 mg IVPB DAILY [facility] Last Admin: 09/22/18 09:27 Dose: 200 mg ASSESSMENT/PLAN: 68 y.o. 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 Found to have alcoholic hepatitis. 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 No intrahepatic or extrahepatic biliary ductal dilatation. No cholelithiasis. No choledocholithiasis. -EGD: short segmet barretts esophagus @ [facility]. Portal hypertensive gastropathy/ gastritis in prox gastric body & fundus. #Acute rectal bleeding -Denies current bleeding -GI on board -Hgb stable -Protonix 40 #History of PE -Rivaroxaban restarted -Records w/ [facility] #EtOH WD 2/2 EtOH abuse -Ativan PRN -CIWA 7 -Thiamine -Folic acid -[facility] transfer once bed becomes available #Hypokalemia -Repleted #Hypomagnesemia -Repleted #Hx substance abuse -On Methadone 40 #Macrocytic anemia -MCV 99.6 -2/2 alcohol #QTc prolongation -qtc 492 on repeat ekg -Tele monitor #HTN -Holding chlorthalidone #HLD -Holding Atorvastatin #DVT PPX -Rivaroxaban #FEN -LR -Trend BMP; replete prn -Fat/ sodium controlled diet Visit type - Emergency Visit Emergency Visit: No - New Patient This patient is new to me today: No - Critical Care Critical Care patient: No ATTENDING PHYSICIAN STATEMENT I saw and evaluated the patient. I reviewed the resident's note and discussed the case with the resident. I agree with the resident's findings and plan as documented. SUBJECTIVE: OBJECTIVE: ASSESSMENT AND PLAN:
--- NOTE | 2018-09-22 17:43 | PN ---
[facility] Progress Note (SOAP) Subjective: 68 y.o. male w / PMhx HLD, HTN, chronic b/l knee pain, h/o PE(on xarelto) referred for consultation , pt hospitalized for abdominal pain , seen by GI , medically cleared . Pt reports 2 pints liquor /day x 4 years , prior to which he was not drinking alcohol heavily , denies specific life stressor , reports tremors and blackouts when drinking alcohol, denies seizures . Reports this is his 1st episode seeking assistance w/ etoh abuse , reports he was motivated by his brother to come into the hospital . Reports fair appetite , denies n/v/diarrhea , reports tremors when Ativan wears off , given prn since 09/19/18 . . Pt on MMTP reports x 20 years , current daily dose 40 mg . Active Medications Folic Acid (Folic Acid -) 1 mg PO DAILY [facility] Last Admin: 09/22/18 09:23 Dose: 1 mg Lactated Ringer's (Lactated Ringers Solution) 1,000 ml in 1,000 mls @ 100 mls/ hr IV ASDIR [facility] Last Admin: 09/22/18 07:11 Dose: Not Given Lorazepam (Ativan Injection -) 1 mg IVPUSH Q1H PRN PRN Reason: CIWA 5-15 Last Admin: 09/22/18 14:04 Dose: 1 mg Lorazepam (Ativan Injection -) 2 mg IVPUSH Q2H PRN PRN Reason: CIWA15+ Last Admin: 09/22/18 02:08 Dose: 2 mg Methadone HCl (Dolophine -) 40 mg PO DAILY@0600 [facility] Last Admin: 09/22/18 06:01 Dose: 40 mg Multivitamins/Minerals/Vitamin C (Tab-A-Vit -) 1 tab PO DAILY [facility] Last Admin: 09/22/18 09:23 Dose: 1 tab Pantoprazole Sodium (Protonix -) 40 mg PO DAILY [facility] Last Admin: 09/22/18 09:23 Dose: 40 mg Potassium Chloride (K-Dur -) 40 meq PO Q4H [facility] Stop: 09/22/18 18:46 Last Admin: 09/22/18 14:53 Dose: 40 meq Rivaroxaban (Xarelto) 20 mg PO DAILY@1800 [facility] Last Admin: 09/22/18 17:19 Dose: 20 mg Thiamine HCl (Vitamin B1 Injection -) 200 mg IVPB DAILY [facility] Last Admin: 09/22/18 09:27 Dose: 200 mg Objective: wnwd , nad , AAO x 3 , anxious , mild UE tremors Abnormal Lab Results 09/22/18 09/22/18 09/22/18 08:15 09:15 09:15 RBC 3.94 L MCV 99.6 H PTT (Actin FS) 36.6 H Potassium 3.1 L Total Bilirubin 1.6 H AST 253 H ALT 153 H Alkaline Phosphatase 145 H CBC, BMP 09/22/18 09:15 09/22/18 08:15 Vital Signs - 24 hr 09/21/18 09/21/18 09/22/18 21:00 22:00 01:38 Temperature 99.0 F 99.2 F Pulse Rate 120 H 96 H Respiratory 20 20 Rate Blood Pressure 151/110 H 135/97 O2 Sat by Pulse 100 Oximetry (%) 09/22/18 09/22/18 09/22/18 05:00 09:00 14:00 Temperature 98.3 F 97.8 F Pulse Rate 95 H 112 H Respiratory 20 20 20 Rate Blood Pressure 125/74 123/83 O2 Sat by Pulse 100 Oximetry (%) Assessment: Alcohol dependence on Ativan prn Opioid dependence on agonist therapy Plan: Pt to consider transfer for detox/ rehab services when medically cleared.
[2018-09-22] MEDS ORDERED: RIVAROXABAN 20 MG TABLET PO SCH (18:00)
[2018-09-22 20:27] VITALS: BP 107/80; PULSE 111; TEMP 99
== END 2018-09-22 22:27 | disposition short-term general hospital (02) | DRG 433 ==
LOC: JER 13:27 → JERBED 19:23 → J5S 23:12 → J4W 09-20 17:01
PROVIDERS: ADMIT Internal Medicine
PROC: 0DB68ZX Excision of Stomach, Via Natural or Artificial Opening Endoscopic, Diagnostic (ICD-10-PCS; principal; 2018-09-21 12:00)
DX: K70.10 Alcoholic hepatitis without ascites (principal); F11.20 Opioid dependence, uncomplicated; K62.5 Hemorrhage of anus and rectum; F10.239 Alcohol dependence with withdrawal, unspecified; G62.9 Polyneuropathy, unspecified; E78.5 Hyperlipidemia, unspecified; I10 Essential (primary) hypertension; R74.0 Nonspecific elevation of levels of transaminase and lactic acid dehydrogenase [LDH]; E87.6 Hypokalemia; E83.42 Hypomagnesemia; D53.9 Nutritional anemia, unspecified; R42 Dizziness and giddiness; E86.0 Dehydration; E83.39 Other disorders of phosphorus metabolism; R20.2 Paresthesia of skin; D75.89 Other specified diseases of blood and blood-forming organs; K29.50 Unspecified chronic gastritis without bleeding; B96.81 Helicobacter pylori [H. pylori] as the cause of diseases classified elsewhere; K21.0 Gastro-esophageal reflux disease with esophagitis; K76.0 Fatty (change of) liver, not elsewhere classified
CPT/HCPCS: 36415; 70450-TC; 71045-TC-FY; 74182-TC; 76705-TC; 80048; 80053; 80076; 80307; 81003; 82272; 82550; 82553; 82607; 82746; 83036; 83690; 83735; 84100; 84443; 84484; 85025; 85027; 85610; 85730; 88305-TC; 93005; 93010; 99283-25; A9579; J1644; J7030

== ENCOUNTER 2018-09-22 21:45 | Inpatient (IN) | payer OTHER ==
[2018-09-22 22:26] VITALS: BMI 26.6
--- NOTE | 2018-09-22 23:11 | HP ---
CIWA Score Nausea/Vomitin Muscle Tremors: 4-Moderate,w/Arms Extend Anxiety: 4-Mod. Anxious/Guarded Agitation: 4-Moderately Restless Paroxysmal Sweats: 2 Orientation: 0-Oriented Tacttile Disturbances: 0-None Auditory Disturbances: 0-None Visual Disturbances: 0-None Headache: 2-Mild CIWA-Ar Total Score: 19 - Admission Criteria [facility] Guidelines: Admission for Medically Managed Detox: Requires at least one of the followin. CIWA greater than 12 2. Seizures within the past 24 hours 3. Delirium tremens within the past 24 hours 4. Hallucinations within the past 24 hours 5. Acute intervention needed for co occurring medical disorder 6. Acute intervention needed for co occurring psychiatric disorder 7. Severe withdrawal that cannot be handled at a lower level of care (continued vomiting, continued diarrhea, abnormal vital signs) requiring intravenous medication and/or fluids 8. Admission ROS [facility] Chief Complaint: Alcohol withdrawal symptoms Allergies/Adverse Reactions: Allergies Allergy/AdvReac Type Severity Reaction Status Date / Time No Known Allergies Allergy Verified 09/19/18 13:41 History of Present Illness: 68 years old male with 30 years of alcohol dependence is seeking admission to detox. Patient was transferred from [facility]. This is his first detoxification and first admission to [facility]. He has medical history of hypertension, hyperlipidemia, alcoholic hepatitis and Pulmonary Embolism in February 2018, presently on Xarelto. He also reports being depressed for 4 years without treatment. He is on Methadone 40mg tablet oral daily with [facility]. Dose to be confirmed by the nurse - Ebola screening Have you traveled outside of the country in the last 21 days: No (N) Have you had contact with anyone from an Ebola affected area: No Do you have a fever: No - Review of Systems Constitutional: Chills, Loss of Appetite, Malaise, Changes in sleep, Weakness EENT: reports: No Symptoms Reported Respiratory: reports: No Symptoms reported Cardiac: reports: No Symptoms Reported GI: reports: Diarrhea, Poor Appetite, Poor Fluid Intake, Abdominal cramping : reports: No Symptoms Reported Musculoskeletal: reports: No Symptoms Reported Integumentary: reports: Dryness, Flushing Neuro: reports: Headache, Tremors Endocrine: reports: No Symptoms Reported Hematology: reports: No Symptoms Reported Psychiatric: reports: Mood/Affect Appropiate, Orientated x3 Other Systems: Reviewed and Negative Patient History - Patient Medical History Hx Anemia: No Hx Asthma: No Hx Chronic Obstructive Pulmonary Disease (COPD): No Hx Cancer: No Hx Cardiac Disorders: No Hx Congestive Heart Failure: No Hx Hypertension: Yes Hx Hypercholesterolemia: Yes Hx Pacemaker: No HX Cerebrovascular Accident: No Hx Seizures: No Hx Dementia: No Hx Diabetes: No Hx Gastrointestinal Disorders: No Hx Liver Disease: No Hx Genitourinary Disorders: No Hx Sexually Transmitted Disorders: No Hx Renal Disease (ESRD): No Hx Thyroid Disease: No Hx Human Immunodeficiency Virus (HIV): No Hx Hepatitis C: No Hx Depression: Yes Hx Suicide Attempt: No (Denies suicide attempt and suicidal ideation at this time) Hx Bipolar Disorder: No Hx Schizophrenia: No - Patient Surgical History Past Surgical History: Yes Hx Neurologic Surgery: No Hx Cataract Extraction: No Hx Cardiac Surgery: No Hx Lung Surgery: No Hx Abdominal Surgery: No Hx Appendectomy: No Hx Cholecystectomy: No Hx Genitourinary Surgery: No Hx Orthopedic Surgery: Yes (Arthroscopic knee surgery 2007) Anesthesia Reaction: No - PPD History Previous Implant?: Yes Documented Results: Negative w/o proof Implanted On Prior [facility] Admission?: Yes - Reproductive History Patient is a Female of Child Bearing Age (11 -55 yrs old): No (Male) - Smoking Cessation Smoking history: Current every day smoker Have you smoked in the past 12 months: Yes Aproximately how many cigarettes per day: 5 Hx Chewing Tobacco Use: No Initiated information on smoking cessation: Yes 'Breaking Loose' booklet given: 09/22/18 - Substance & Tx. History Hx Alcohol Use: Yes Hx Substance Use: Yes Substance Use Type: Marijuana Hx Substance Use Treatment: No - Substances abused Alcohol Substance route: Oral Frequency: Daily Amount used: about 1 pint and half of pastora. Age of first use: 32 Date of last use: 09/19/18 Family Disease History - Family Disease History Family Disease History: Diabetes: Mother ( @ 72 Angina , DM ), Other: Father ( @ 55 , heavy drinking ), Mother Admission Physical Exam S - Vital Signs Vital Signs: Vital Signs - 24 hr 09/22/18 22:14 Temperature 99.4 F Pulse Rate 106 H Respiratory 18 Rate Blood Pressure 121/88 - Physical General Appearance: Yes: Moderate Distress HEENTM: Yes: Within Normal Limits Respiratory: Yes: Lungs Clear, Normal Breath Sounds, No Respiratory Distress Neck: Yes: Supple Breast: Yes: Breast Exam Deferred Cardiology: Yes: Tachycardia Abdominal: Yes: Normal Bowel Sounds Genitourinary: Yes: Within Normal Limits Back: Yes: Normal Inspection Musculoskeletal: Yes: Back pain, Muscle Pain, Other (knee pain) Extremities: Yes: Tremors Neurological: Yes: patient representative II-XII NML intact, Alert, Normal Mood/Affect Integumentary: Yes: Warm Lymphatic: Yes: Within Normal Limits - Diagnostic (1) Alcohol dependence with uncomplicated withdrawal Current Visit: Yes Status: Acute (2) Alcoholic hepatitis Current Visit: Yes Status: Acute (3) HLD (hyperlipidemia) Current Visit: Yes Status: Chronic Qualifiers: Hyperlipidemia type: unspecified Qualified Code(s): E78.5 - Hyperlipidemia , unspecified (4) HTN (hypertension) Current Visit: Yes Status: Chronic Qualifiers: Hypertension type: essential hypertension Qualified Code(s): I10 - Essential (primary) hypertension (5) History of pulmonary embolus (PE) Current Visit: No Status: Chronic (6) Pancreatitis Current Visit: No Status: Chronic Qualifiers: Chronicity: acute Pancreatitis type: unspecified pancreatitis type Acute pancreatitis complication: unspecified Qualified Code(s): K85.90 - Acute pancreatitis without necrosis or infection, unspecified Cleared for Admission S - Detox or Rehab [facility] Level of Care: Medically Managed Detox Regimen/Protocol: Librium Claeared for Rehab Admission: No Breathalyzer - Breathalyzer Breathalyzer: 0 Urine Drug Screen - Test Device Lot number: [id number] Expiration date: 07/04/20 - Control Is test valid?: Yes - Results Drug screen NEGATIVE: No Urine drug screen results: THC-Marijuana, MTD-Methadone, BZO-Benzodiazepines Inpatient Rehab Admission - Rehab Decision to Admit Inpatient rehab admission?: No
[2018-09-22] MEDS ORDERED: BISMUTH SUBSALICYLATE 524 MG/30 ML UD PO PRN (23:40)
[2018-09-22] MEDS ORDERED: chlordiazePOXIDE HCL 25 MG CAPSULE PO PRN (23:40)
[2018-09-22] MEDS ORDERED: METHOCARBAMOL 500 MG TABLET PO PRN (23:40)
[2018-09-22] MEDS ORDERED: MENTHOL/PHENOL 1 EACH UD MM PRN (23:40)
[2018-09-22] MEDS ORDERED: MAGNESIUM CITRATE 300 ML BOTTLE PO PRN (23:40)
[2018-09-22] MEDS ORDERED: MAGNESIUM HYDROX 2400MG/30ML ORAL SUSPENSION 30 ML CUP PO PRN (23:40)
[2018-09-22] MEDS ORDERED: hydrOXYzine PAMOATE 25 MG CAPSULE (FP) PO PRN (23:40)
[2018-09-22] MEDS ORDERED: NICOTINE POLACRILEX 2 MG GUM BUC PRN (23:40)
[2018-09-22] MEDS ORDERED: MAG HYDROX/AL HYDROX/SIMETH 30 ML UNIT-DOSE CUP PO PRN (23:40)
[2018-09-22] MEDS ORDERED: ACETAMINOPHEN 325 MG TABLET (FP) PO PRN ×2 (23:40)
[2018-09-22] MEDS ORDERED: MELATONIN 5 MG TABLETS PO PRN (23:40)
[2018-09-22] MEDS ORDERED: IBUPROFEN 400 MG TABLET (FP) PO PRN (23:40)
[2018-09-23] MEDS: chlordiazePOXIDE HCL 25 MG CAPSULE PO SCH ×5 (00:41→22:23)
--- NOTE | 2018-09-23 08:41 | CONSULT ---
[facility] Psychiatric Consult - Data Date of interview: 09/23/18 Admission source: [facility] Identifying data: Patient is a 68 year old single male, father of four, domiciled, and currently employed. This is patient's first admission to detox at [facility]. Patient admitted to for alcohol dependence. Substance Abuse History: Smoking Cessation. Smoking history: Current every day smoker. Have you smoked in the past 12 months: Yes. Aproximately how many cigarettes per day: 5. Hx Chewing Tobacco Use: No. Initiated information on smoking cessation: Yes. 'Breaking Loose' booklet given: 09/22/18. - Substance & Tx. History. Hx Alcohol Use: Yes. Hx Substance Use: Yes. Substance Use Type : Marijuana. Hx Substance Use Treatment: No. - Substances abused. Alcohol. Substance route: Oral. Frequency: Daily. Amount used: about 1 pint and half of pastora. Age of first use: 32. Date of last use: 09/19/18 Medical History: Hypertension, Hypercholesterolemia Psychiatric History: Patient denies h/o psychiatric hospitalization, outpatient care, and suicide attempt. At present he reports feeling sad because of his drinking but understands that going through detox can be difficult and one can exhibit depressive symptoms. Patient motivated to complete detox. Denies thoughts or urges to hurtself or others. Physical/Sexual Abuse/Trauma History: denies. Mental Status Exam - Mental Status Exam Alert and Oriented to: Time, Place, Person Cognitive Function: Good Patient Appearance: Well Groomed Mood: Sad Affect: Mood Congruent Patient Behavior: Cooperative Speech Pattern: Appropriate Voice Loudness: Normal Thought Process: Goal Oriented Thought Disorder: Not Present Hallucinations: Denies Suicidal Ideation: Denies Homicidal Ideation: Denies Insight/Judgement: Poor Sleep: Fair Appetite: Fair Muscle strength/Tone: Normal Gait/Station: Other (Patient ambulates with a cane.) Psychiatric Findings - Problem List ([place] 1, 2,3) (1) Alcohol-induced mood disorder Current Visit: Yes Status: Acute (2) Alcohol dependence with uncomplicated withdrawal Current Visit: Yes Status: Acute - Initial Treatment Plan Initial Treatment Plan: Psychoeducation provided. Detoxification in progress. Observation.
[2018-09-23 10:34] LABS: ALBUMIN 3.4 g/dl (3.4-5.0); BILIRUBIN,TOTAL 1.6 mg/dL (0.2-1); BLOOD UREA NITROGEN 15.5 mg/dL (7-18); CALCIUM 9.1 mg/dL (8.5-10.1); CREATININE 0.8 mg/dL (0.55-1.3); POTASSIUM 3.6 mmol/L (3.5-5.1); TOT PROT 7.1 g/dl (6.4-8.2)
[2018-09-23] MEDS: NICOTINE 14 MG/24 HOURS TOPICAL PATCH TD SCH (10:44)
[2018-09-23] MEDS: PRENATAL VITAMINS W/ FOLIC ACID TABLET (FP) PO SCH (10:44)
[2018-09-23] MEDS: PANTOPRAZOLE 40 MG TABLET (FP) PO SCH (10:44)
[2018-09-23] MEDS: METHADONE HCL 40 MG DISPERSABLE TABLET PO SCH (10:45)
[2018-09-23 11:14] LABS: HEMATOCRIT 38.6 % (35.4-49); HEMOGLOBIN 12.7 GM/dL (11.7-16.9); MCH 33.7 pg (25.7-33.7); MCHC 32.8 g/dl (32.0-35.9); MEAN CELL VOLUME 102.7 fl (80-96); MEAN PLT VOLUME 10.2 fl (7.5-11.1); PLATELET COUNT 184 K/MM3 (134-434); RBC 3.76 M/mm3 (4.00-5.60); RDW 14.8 % (11.9-15.9); WHITE BLOOD COUNT 7.3 K/mm3 (4.0-10.0)
--- NOTE | 2018-09-23 12:15 | DS ---
Physical Exam: SUBJECTIVE: Patient seen and examined. Mild tremors noted on exam. Pt denies CP / SOB/ fevers/ chills/ nausea/ vomiting/ diarrhea/ bleeding. OBJECTIVE: Vital Signs Period Temp Pulse Resp BP Sys/Plaza Pulse Ox Last 24 Hr 97.2 F-99.4 F 84-106 16-18 120-136/82-88 PHYSICAL EXAM GENERAL: AOx3. NAD HEENT: NCAT. No scleral icterus. Moist mucous membranes. LUNGS: CTABL. No incr work of breathing. HEART: Regular rate and rhythm, S1, S2 without murmurs ABDOMEN: Soft, nontender, nondistended, normoactive bowel sounds. EXTREMITIES: 2+ pulses, warm, well-perfused, no edema. Mildly tremors noted NEUROLOGICAL: Normal gait observed. Denies parasthesias. PSYCH: Denies AVH SKIN: No rashes/ lesions noted LABS Laboratory Results - last 24 hr 09/23/18 09/23/18 08:00 08:00 WBC 7.3 RBC 3.76 L Hgb 12.7 Hct 38.6 MCV 102.7 H MCH 33.7 MCHC 32.8 RDW 14.8 Plt Count 184 MPV 10.2 Sodium 138 Potassium 3.6 Chloride 102 Carbon Dioxide 28 Anion Gap 8 BUN 15.5 Creatinine 0.8 Est GFR (CKD-EPI)AfAm 107.89 Est GFR (CKD-EPI)NonAf 93.09 Random Glucose 97 Calcium 9.1 Total Bilirubin 1.6 H AST 182 H ALT 140 H Alkaline Phosphatase 137 H Total Protein 7.1 Albumin 3.4 HOSPITAL COURSE: 68 y.o. 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 Found to have fatty infiltration of the liver on MRCP, likely d/t alcohol. Peripheral neuropathy has significantly improved. Found to have transaminitis, currently downtrending, as well as macrocytic anemia likely 2/2 to alcohol. Pt also had BRBPR seen only when wiping after BMs , which has resolved. H&H stable. EGD performed showing short segment barretts esophagus @ GEJ, portal hypertensive gastropathy/ gastritis in prox gastric body & fundus; pt will f/u outpatient with GI. For alcohol withdrawals, pt started on thiamine & folic acid and will be transferred to [facility] for detox. Date of Admission:09/22/18 MRCP: Severe fatty infiltration of the liver. No intrahepatic or extrahepatic biliary ductal dilatation. No cholelithiasis. No choledocholithiasis. EGD: short segmet barretts esophagus @ GEJ. Portal hypertensive gastropathy/ gastritis in prox gastric body & fundus CT Head: No evidence of acute intracranial hemorrhage, edema, midline shift, mass effect, skull fracture. No CT evidence of acute territorial ischemic changes. Limited evaluation of the posterior fossa to the beam hardening artifacts. Mild mucoperiosteal thickening left maxillary sinus. The remaining visualized paranasal sinuses are clear. No evidence of acute otomastoiditis. Abd US: Diffuse hepatic steatosis is noted with associated hepatomegaly. Date of Discharge: 09/23/18 Minutes to complete discharge: 36 Discharge Summary Reason For Visit: DETOX - [facility] Current Active Problems Alcohol dependence with uncomplicated withdrawal (Acute) Alcohol-induced mood disorder (Acute) Alcoholic hepatitis (Acute) HLD (hyperlipidemia) (Chronic) HTN (hypertension) (Chronic) - Instructions - Home Medications Comprehensive Discharge Medication List: Ambulatory Orders Rivaroxaban [Xarelto -] 20 mg PO DAILY 09/19/18 Atorvastatin Ca [Lipitor] 20 mg PO HS 09/22/18 Chlorthalidone 25 mg PO DAILY 09/22/18 Pantoprazole Sodium [Protonix -] 40 mg PO DAILY tablet.ec 09/22/18 This patient is new to me today: No Emergency Visit: No Critical Care patient: No - Discharge Referral Referred to [facility] Med [facility].C[facility] Yes Physician Referral: Austen Michael DO (GI) ATTENDING PHYSICIAN STATEMENT I saw and evaluated the patient. I reviewed the resident's note and discussed the case with the resident. I agree with the resident's findings and plan as documented. SUBJECTIVE: OBJECTIVE: ASSESSMENT AND PLAN:
[2018-09-23] MEDS: CHLORTHALIDONE 25 MG TABLET PO SCH (13:23)
[2018-09-23] MEDS: RIVAROXABAN 20 MG TABLET PO SCH (13:23)
--- NOTE | 2018-09-23 13:40 | PN ---
S CIWA - CIWA Score Nausea/Vomitin-No Nausea/No Vomiting Muscle Tremors: 3 Anxiety: 3 Agitation: 1-Slight > Activity Paroxysmal Sweats: 3 Orientation: 0-Oriented Tacttile Disturbances: 2-Mild Itch/Numbness/Burn Auditory Disturbances: 0-None Visual Disturbances: 2-Mild Sensitivity Headache: 0-None Present CIWA-Ar Total Score: 14 BHS Progress Note (SOAP) Subjective: Tremors, Diarrhea, Sweating, Anxious. Objective: PATIENT A & O X 3, OBSERVED AMBULATING ON UNIT WITH ASSISTANCE OF A CANE. IN NO ACUTE DISTRESS. 09/23/18 13:38 Vital Signs Temperature 97.2 F L 09/23/18 09:26 Pulse Rate 106 H 09/23/18 09:26 Respiratory Rate 16 09/23/18 09:26 Blood Pressure 120/86 09/23/18 09:26 O2 Sat by Pulse Oximetry (%) Laboratory Tests 09/23/18 09/23/18 09/23/18 08:00 08:00 08:00 WBC 7.3 RBC 3.76 L Hgb 12.7 Hct 38.6 MCV 102.7 H MCH 33.7 MCHC 32.8 RDW 14.8 Plt Count 184 MPV 10.2 Sodium 138 Potassium 3.6 Chloride 102 Carbon Dioxide 28 Anion Gap 8 BUN 15.5 Creatinine 0.8 Est GFR (CKD-EPI)AfAm 107.89 Est GFR (CKD-EPI)NonAf 93.09 Random Glucose 97 Calcium 9.1 Total Bilirubin 1.6 H AST 182 H ALT 140 H Alkaline Phosphatase 137 H Total Protein 7.1 Albumin 3.4 RPR Titer Nonreactive LABS NOTED. RESULTS OF QFT /TB TEST PENDING. 09/23/18 13:56 Assessment: 09/23/18 13:55 WITHDRAWAL SYMPTOMS. ELEVATED LIVER ENZYMES. HYPERBILIRUBINEMIA. Plan: CONTINUE DETOX. INCREASE DAILY PO WATER INTAKE. HEPATIC FUNCTION PANEL ORDERED FOR TOMORROW AM FOR ELEVATED LIVER ENZYMES AND BILIRUBIN LEVEL NOTED ON DETOX ADMISSION LABORATORY ASSESSMENT.
[2018-09-23] MEDS ORDERED: ATORVASTATIN CA 20 MG TABLET (FP) PO SCH (22:00)
[2018-09-23] MEDS ORDERED: THIAMINE HCL 100 MG TABLET (FP) PO SCH (22:00)
[2018-09-24] MEDS: METHADONE HCL 40 MG DISPERSABLE TABLET PO SCH (05:46)
[2018-09-24] MEDS: chlordiazePOXIDE HCL 25 MG CAPSULE PO SCH ×2 (05:46→10:13)
[2018-09-24 09:08] VITALS: BP 127/81; PULSE 115; TEMP 98.2
[2018-09-24] MEDS: NICOTINE 14 MG/24 HOURS TOPICAL PATCH TD SCH (10:13)
[2018-09-24] MEDS: RIVAROXABAN 20 MG TABLET PO SCH (10:13)
[2018-09-24] MEDS: PANTOPRAZOLE 40 MG TABLET (FP) PO SCH (10:13)
[2018-09-24] MEDS: CHLORTHALIDONE 25 MG TABLET PO SCH (10:13)
[2018-09-24] MEDS: PRENATAL VITAMINS W/ FOLIC ACID TABLET (FP) PO SCH (10:13)
--- NOTE | 2018-09-24 12:15 | DS ---
[facility] Detox Discharge Summary Admission Date: 09/22/18 Discharge Date: 09/24/18 - History Present History: Alcohol Dependence Additional Comments: 68 years old male admitted on 09/22/18 for acute alcohol withdrawal sx management patient stated that he is feeling ok and the withdrawal sx are manageable ambulate with cane alert oriented x 3 speech clearly insists to leave the detox unit that he was in ER x 4 days for upset stomach headaches and knees pain patient reported that he needs to return to work that "they want me to go back to work" discuss risks of alcohol misuse related consequences cardiac S1S2 pulmonary clear lung bilaterally abdomen soft none tenderness strong recommend the patient reach out to community support meeting and group encourage the patient return to primary care provider for necessity of xarelto continuity Pertinent Past History: patient agrees to return to methadone program 40 mg po daily and bring in medication list and lab report for follow up - Physical Exam Results Vital Signs: Vital Signs Temperature 98.2 F 09/24/18 09:07 Pulse Rate 115 H 09/24/18 09:07 Respiratory Rate 18 09/24/18 09:07 Blood Pressure 127/81 09/24/18 09:07 O2 Sat by Pulse Oximetry (%) Pertinent Admission Physical Exam Findings: alcohol withdrawal sx Laboratory Last Values WBC 7.3 K/mm3 (4.0-10.0) 09/23/18 08:00 RBC 3.76 M/mm3 (4.00-5.60) L 09/23/18 08:00 Hgb 12.7 GM/dL (11.7-16.9) 09/23/18 08:00 Hct 38.6 % (35.4-49) 09/23/18 08:00 MCV 102.7 fl (80-96) H 09/23/18 08:00 MCH 33.7 pg (25.7-33.7) 09/23/18 08:00 MCHC 32.8 g/dl (32.0-35.9) 09/23/18 08:00 RDW 14.8 % (11.9-15.9) 09/23/18 08:00 Plt Count 184 K/MM3 (134-434) 09/23/18 08:00 MPV 10.2 fl (7.5-11.1) 09/23/18 08:00 Sodium 138 mmol/L (136-145) 09/23/18 08:00 Potassium 3.6 mmol/L (3.5-5.1) 09/23/18 08:00 Chloride 102 mmol/L (98-107) 09/23/18 08:00 Carbon Dioxide 28 mmol/L (21-32) 09/23/18 08:00 Anion Gap 8 MMOL/L (8-16) 09/23/18 08:00 BUN 15.5 mg/dL (7-18) 09/23/18 08:00 Creatinine 0.8 mg/dL (0.55-1.3) 09/23/18 08:00 Est GFR (CKD-EPI)AfAm 107.89 09/23/18 08:00 Est GFR (CKD-EPI)NonAf 93.09 09/23/18 08:00 Random Glucose 97 mg/dL (74-106) 09/23/18 08:00 Calcium 9.1 mg/dL (8.5-10.1) 09/23/18 08:00 Total Bilirubin 1.6 mg/dL (0.2-1) H 09/23/18 08:00 AST 182 U/L (15-37) H 09/23/18 08:00 ALT 140 U/L (13-61) H 09/23/18 08:00 Alkaline Phosphatase 137 U/L (45-117) H 09/23/18 08:00 Total Protein 7.1 g/dl (6.4-8.2) 09/23/18 08:00 Albumin 3.4 g/dl (3.4-5.0) 09/23/18 08:00 RPR Titer Nonreactive (NONREACTIVE) 09/23/18 08:00 lab noted ast elevation possible alcohol related patient will bring in lab report to methadone program for follow up - Treatment Hospital Course: Detox Protocol Followed, Detoxed Safely, Responded well, Discharged Condition Good, Rehab Referral Accepted Patient has Accepted a Rehab Referral to: community support approach - Medication Discharge Medications: Ambulatory Orders Rivaroxaban [Xarelto -] 20 mg PO DAILY 09/19/18 Atorvastatin Ca [Lipitor] 20 mg PO HS 09/22/18 Chlorthalidone 25 mg PO DAILY 09/22/18 Pantoprazole Sodium [Protonix -] 40 mg PO DAILY tablet.ec 09/22/18 - Diagnosis (1) Methadone maintenance therapy patient Current Visit: Yes Status: Chronic (2) Alcohol dependence with uncomplicated withdrawal Current Visit: Yes Status: Acute (3) HTN (hypertension) Current Visit: Yes Status: Chronic Qualifiers: Hypertension type: essential hypertension Qualified Code(s): I10 - Essential (primary) hypertension - AMA Did Patient Leave Against Medical Advice: No
[2018-09-25] MEDS ORDERED: chlordiazePOXIDE HCL 10 MG CAPSULE PO PRN
[2018-09-25] MEDS ORDERED: chlordiazePOXIDE HCL 10 MG CAPSULE PO SCH (05:00)
[2018-09-26] MEDS ORDERED: chlordiazePOXIDE HCL 10 MG CAPSULE PO SCH (05:00)
[2018-09-27] MEDS ORDERED: chlordiazePOXIDE HCL 10 MG CAPSULE PO ONE (05:00)
== END 2018-09-24 12:30 | disposition left against medical advice (07) | DRG 894 ==
LOC: YASAS 21:45 → Y3N 23:42
PROVIDERS: ADMIT Surgery; ATTEND Surgery
PROC: HZ2ZZZZ Detoxification Services for Substance Abuse Treatment (ICD-10-PCS; principal; 2018-09-22)
DX: F10.230 Alcohol dependence with withdrawal, uncomplicated (principal); F11.20 Opioid dependence, uncomplicated; F10.24 Alcohol dependence with alcohol-induced mood disorder; F17.210 Nicotine dependence, cigarettes, uncomplicated; I10 Essential (primary) hypertension; R94.5 Abnormal results of liver function studies; E80.6 Other disorders of bilirubin metabolism; E78.5 Hyperlipidemia, unspecified; K70.10 Alcoholic hepatitis without ascites; Z86.711 Personal history of pulmonary embolism; Z79.01 Long term (current) use of anticoagulants
CPT/HCPCS: 36415; 80053; 85027; 86480; 86593

== ENCOUNTER 2019-05-01 18:05 | Inpatient (IN) | payer OTHER ==
--- NOTE | 2019-05-01 21:21 | BHS.RME ---
Substance Use & Tx History - Last Treatment Where was last treatment: Detox CIWA Nausea/Vomitin (vomiting x 2) Muscle Tremors: 4-Moderate,w/Arms Extend Anxiety: 3 Agitation: 4-Moderately Restless Paroxysmal Sweats: 3 Orientation: 2-Disoriented Date<2 days Tacttile Disturbances: 0-None Auditory Disturbances: 0-None Visual Disturbances: 0-None Headache: 0-None Present CIWA-Ar Total Score: 19
--- NOTE | 2019-05-01 21:22 | HP ---
CIWA Score Nausea/Vomitin (vomiting x 2) Muscle Tremors: 4-Moderate,w/Arms Extend Anxiety: 3 Agitation: 4-Moderately Restless Paroxysmal Sweats: 3 Orientation: 2-Disoriented Date<2 days Tacttile Disturbances: 0-None Auditory Disturbances: 0-None Visual Disturbances: 0-None Headache: 0-None Present CIWA-Ar Total Score: 19 - Admission Criteria OASAS Guidelines: Admission for Medically Managed Detox: Requires at least one of the followin. CIWA greater than 12 2. Seizures within the past 24 hours 3. Delirium tremens within the past 24 hours 4. Hallucinations within the past 24 hours 5. Acute intervention needed for co occurring medical disorder 6. Acute intervention needed for co occurring psychiatric disorder 7. Severe withdrawal that cannot be handled at a lower level of care (continued vomiting, continued diarrhea, abnormal vital signs) requiring intravenous medication and/or fluids 8. Admitting History and Physical - Past Medical History PICTURE FRAMER: Yes: Other (dizziness ) Cardiovascular: Yes: HTN Pulmonary: Yes: Other (PE ) Gastrointestinal: Yes: Constipation (last BM 3 mei go , he has one BM today morning ). No: Ascites Psych: Yes: Addictions (methadone , alcohol , marijuana ) Rheumatology: Yes: Other (B.l Knee pain ) - Smoking History Smoking history: Current every day smoker Have you smoked in the past 12 months: Yes Aproximately how many cigarettes per day: 5 - Alcohol/Substance Use Hx Alcohol Use: Yes Number of Drinks Daily: 1 (1.5 pind of Jewels , last use Yesterday ) History of Substance Use: reports: Heroin, Marijuana, Prescription (methadone ) Date of Last Use: 09/16/18 (Marijuana ) - Social History ADL: Independent Admission [facility] Chief Complaint: alcohol withdrawal symptoms Allergies/Adverse Reactions: Allergies Allergy/AdvReac Type Severity Reaction Status Date / Time No Known Allergies Allergy Verified 09/19/18 13:41 History of Present Illness: 69 years old male with more than 30 years of alcohol dependence is seeking admission to detox. His last admission was for period 09/22/2018-09/24/2018 and he reports insignificant period of sobriety. He has medical history of hypertension, hyperlipidemia, pancreatitis, alcoholic hepatitis and Pulmonary Embolism in February 2018. He report psych. history of depression and anxiety. He is on Methadone 40mg tablet oral daily with [facility]. Dose to be confirmed by the nurse. 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 and denies alcoholic related seizures Exam Limitations: No Limitations - Ebola screening Have you traveled outside of the country in the last 21 days: No Have you had contact with anyone from an Ebola affected area: No Do you have a fever: No - Review of Systems Constitutional: Chills, Loss of Appetite, Malaise, Night Sweats, Changes in sleep EENT: reports: Nose Congestion Respiratory: reports: No Symptoms reported Cardiac: reports: No Symptoms Reported GI: reports: Diarrhea, Nausea, Poor Appetite, Poor Fluid Intake, Vomiting (x 2) : reports: No Symptoms Reported Musculoskeletal: reports: Back Pain, Other (knee pain) Neuro: reports: Headache, Tremors Endocrine: reports: No Symptoms Reported Hematology: reports: No Symptoms Reported Psychiatric: reports: Mood/Affect Appropiate, Anxious, Depressed Other Systems: Reviewed and Negative Patient History - Patient Medical History Hx Anemia: No Hx Asthma: No Hx Chronic Obstructive Pulmonary Disease (COPD): No Hx Cancer: No Hx Cardiac Disorders: No Hx Congestive Heart Failure: No Hx Hypertension: Yes Hx Hypercholesterolemia: Yes Hx Pacemaker: No HX Cerebrovascular Accident: No Hx Seizures: No Hx Dementia: No Hx Diabetes: No Hx Gastrointestinal Disorders: No Hx Liver Disease: No Hx Genitourinary Disorders: No Hx Sexually Transmitted Disorders: No Hx Renal Disease (ESRD): No Hx Thyroid Disease: No Hx Human Immunodeficiency Virus (HIV): No Hx Hepatitis C: No Hx Depression: Yes Hx Suicide Attempt: No (Denies suicide attempt and suicidal ideation at this time) Hx Bipolar Disorder: No Hx Schizophrenia: No Other Medical History: alcoholic hepatitis, pulmonary embolism - Patient Surgical History Past Surgical History: Yes Hx Neurologic Surgery: No Hx Cataract Extraction: No Hx Cardiac Surgery: No Hx Lung Surgery: No Hx Abdominal Surgery: No Hx Appendectomy: No Hx Cholecystectomy: No Hx Genitourinary Surgery: No Hx Orthopedic Surgery: Yes (Arthroscopic knee surgery 2007) Anesthesia Reaction: No - PPD History Previous Implant?: No Implanted On Prior R Admission?: No PPD to be Administered?: No - Reproductive History Patient is a Female of Child Bearing Age (11 -55 yrs old): No (male) - Smoking Cessation Smoking history: Current every day smoker Have you smoked in the past 12 months: Yes Aproximately how many cigarettes per day: 5 Hx Chewing Tobacco Use: No Initiated information on smoking cessation: Yes 'Breaking Loose' booklet given: 05/01/19 - Substance & Tx. History Hx Alcohol Use: Yes Hx Substance Use: Yes Substance Use Type: Alcohol, Cocaine, Marijuana Hx Substance Use Treatment: Yes ([facility]) - Substances abused Alcohol Substance route: Oral Frequency: Daily Amount used: 21/2 PINTS OF JEWELS Age of first use: 21 Date of last use: 05/01/19 Admission Physical Exam [facility] - Physical General Appearance: Yes: Moderate Distress, Tremorous, Sweating, Anxious HEENTM: Yes: Within Normal Limits Respiratory: Yes: Lungs Clear, Normal Breath Sounds, No Respiratory Distress Neck: Yes: Within Normal Limits Breast: Yes: Breast Exam Deferred Cardiology: Yes: Tachycardia Abdominal: Yes: Normal Bowel Sounds, Protuberent Genitourinary: Yes: Within Normal Limits Back: Yes: Normal Inspection Musculoskeletal: Yes: Back pain, Other (kn3ee pain) Extremities: Yes: Tremors, Swelling (bilateral knees) Neurological: Yes: Within Normal Limits, Alert, Normal Mood/Affect Integumentary: Yes: Warm Lymphatic: Yes: Within Normal Limits - Diagnostic (1) Alcohol dependence with uncomplicated withdrawal Current Visit: Yes Status: Acute (2) Alcoholic hepatitis Current Visit: Yes Status: Chronic Qualifiers: Ascites presence: unspecified Qualified Code(s): K70.10 - Alcoholic hepatitis without ascites (3) HLD (hyperlipidemia) Current Visit: Yes Status: Chronic Qualifiers: Hyperlipidemia type: unspecified Qualified Code(s): E78.5 - Hyperlipidemia , unspecified (4) HTN (hypertension) Current Visit: Yes Status: Chronic Qualifiers: Hypertension type: essential hypertension Qualified Code(s): I10 - Essential (primary) hypertension (5) History of pulmonary embolus (PE) Current Visit: No Status: Chronic (6) Methadone maintenance therapy patient Current Visit: Yes Status: Chronic (7) Pancreatitis Current Visit: Yes Status: Chronic Qualifiers: Chronicity: acute Pancreatitis type: unspecified pancreatitis type Acute pancreatitis complication: unspecified Qualified Code(s): K85.90 - Acute pancreatitis without necrosis or infection, unspecified Cleared for Admission [facility] - Detox or Rehab [facility] Level of Care: Medically Managed Detox Regimen/Protocol: Librium Claeared for Rehab Admission: No Breathalyzer - Breathalyzer Breathalyzer: 0 Urine Drug Screen - Test Device Lot number: [id number] Expiration date: 07/04/20 - Control Is test valid?: Yes - Results Drug screen NEGATIVE: No Urine drug screen results: THC-Marijuana, MTD-Methadone, BZO-Benzodiazepines Inpatient Rehab Admission - Rehab Decision to Admit Inpatient rehab admission?: No
[2019-05-01] MEDS ORDERED: BISMUTH SUBSALICYLATE 524 MG/30 ML UD PO PRN (21:34)
[2019-05-01] MEDS ORDERED: ACETAMINOPHEN 325 MG TABLET (FP) PO PRN ×2 (21:34)
[2019-05-01] MEDS ORDERED: chlordiazePOXIDE HCL 25 MG CAPSULE PO PRN (21:34)
[2019-05-01] MEDS ORDERED: METHOCARBAMOL 500 MG TABLET PO PRN (21:34)
[2019-05-01] MEDS ORDERED: hydrOXYzine PAMOATE 25 MG CAPSULE (FP) PO PRN (21:34)
[2019-05-01] MEDS ORDERED: MAGNESIUM CITRATE 300 ML BOTTLE PO PRN (21:34)
[2019-05-01] MEDS ORDERED: IBUPROFEN 400 MG TABLET (FP) PO PRN (21:34)
[2019-05-01] MEDS ORDERED: MAGNESIUM HYDROX 2400MG/30ML ORAL SUSPENSION 30 ML CUP PO PRN (21:34)
[2019-05-01] MEDS ORDERED: NICOTINE POLACRILEX 2 MG GUM BUC PRN (21:34)
[2019-05-01] MEDS ORDERED: MAG HYDROX/AL HYDROX/SIMETH 30 ML UNIT-DOSE CUP PO PRN (21:34)
[2019-05-01] MEDS ORDERED: MENTHOL/PHENOL 1 EACH UD MM PRN (21:34)
[2019-05-01 22:17] VITALS: BMI 25.9
[2019-05-02] MEDS: THIAMINE HCL 100 MG TABLET (FP) PO SCH ×2 (00:12→22:14)
[2019-05-02] MEDS: chlordiazePOXIDE HCL 25 MG CAPSULE PO SCH ×3 (00:13→10:08)
[2019-05-02] MEDS: MELATONIN 5 MG TABLETS PO PRN ×2 (00:13→22:14)
[2019-05-02] MEDS: PRENATAL VITAMINS W/ FOLIC ACID TABLET (FP) PO SCH (10:08)
[2019-05-02] MEDS: NICOTINE 14 MG/24 HOURS TOPICAL PATCH TD SCH (10:09)
[2019-05-02 11:01] LABS: HEMATOCRIT 36.2 % (35.4-49); HEMOGLOBIN 12.2 GM/dL (11.7-16.9); MCH 31.8 pg (25.7-33.7); MCHC 33.7 g/dl (32.0-35.9); MEAN CELL VOLUME 94.6 fl (80-96); PLATELET COUNT 190 K/MM3 (134-434); RBC 3.82 M/mm3 (4.00-5.60); RDW 16.2 % (11.9-15.9)
[2019-05-02 11:28] LABS: ALBUMIN 3.4 g/dl (3.4-5.0); BILIRUBIN,TOTAL 1.4 mg/dL (0.2-1); BLOOD UREA NITROGEN 11.9 mg/dL (7-18); CALCIUM 9.5 mg/dL (8.5-10.1); CREATININE 0.7 mg/dL (0.55-1.3); TOT PROT 7.3 g/dl (6.4-8.2)
--- NOTE | 2019-05-02 13:25 | PN ---
[facility] CIWA - CIWA Score Nausea/Vomitin-Mild Nausea/No Vomiting Muscle Tremors: 4-Moderate,w/Arms Extend Anxiety: 4-Mod. Anxious/Guarded Agitation: 0-Normal Activity Paroxysmal Sweats: 2 Orientation: 0-Oriented Tacttile Disturbances: 1-Very Mild Itch/Numbness Auditory Disturbances: 0-None Visual Disturbances: 1-Very Mild Sensitivity Headache: 1-Very Mild CIWA-Ar Total Score: 14 BHS Progress Note (SOAP) Subjective: 69 years old male admitted on 05/01/19 for alcohol withdrawal sx management treating with librium detox regiment ambulating with cane steady gait reports taking methadone 60 mg by history current dosage 40mg due to prolong Qtc possible methadone cessation patient presents opiate withdrawal sx sweating, abdominal cramping, and joints pain case discussed with the Compliance Aide resume methadone 40mg Objective: 05/02/19 14:52 Vital Signs Temperature 97.7 F 05/02/19 12:44 Pulse Rate 108 H 05/02/19 12:44 Respiratory Rate 17 05/02/19 12:44 Blood Pressure 152/83 05/02/19 12:44 O2 Sat by Pulse Oximetry (%) Laboratory Last Values WBC 6.0 K/mm3 (4.0-10.0) 05/02/19 08:00 RBC 3.82 M/mm3 (4.00-5.60) L 05/02/19 08:00 Hgb 12.2 GM/dL (11.7-16.9) 05/02/19 08:00 Hct 36.2 % (35.4-49) 05/02/19 08:00 MCV 94.6 fl (80-96) 05/02/19 08:00 MCH 31.8 pg (25.7-33.7) 05/02/19 08:00 MCHC 33.7 g/dl (32.0-35.9) 05/02/19 08:00 RDW 16.2 % (11.9-15.9) H 05/02/19 08:00 Plt Count 190 K/MM3 (134-434) 05/02/19 08:00 MPV 9.0 fl (7.5-11.1) D 05/02/19 08:00 Sodium 135 mmol/L (136-145) L 05/02/19 08:00 Potassium 3.0 mmol/L (3.5-5.1) L 05/02/19 08:00 Chloride 93 mmol/L (98-107) L 05/02/19 08:00 Carbon Dioxide 33 mmol/L (21-32) H 05/02/19 08:00 Anion Gap 9 MMOL/L (8-16) 05/02/19 08:00 BUN 11.9 mg/dL (7-18) 05/02/19 08:00 Creatinine 0.7 mg/dL (0.55-1.3) 05/02/19 08:00 Est GFR (CKD-EPI)AfAm 113.18 05/02/19 08:00 Est GFR (CKD-EPI)NonAf 97.65 05/02/19 08:00 Random Glucose 95 mg/dL (74-106) 05/02/19 08:00 Calcium 9.5 mg/dL (8.5-10.1) 05/02/19 08:00 Total Bilirubin 1.4 mg/dL (0.2-1) H 05/02/19 08:00 AST 90 U/L (15-37) H 05/02/19 08:00 ALT 92 U/L (13-61) H 05/02/19 08:00 Alkaline Phosphatase 107 U/L (45-117) 05/02/19 08:00 Total Protein 7.3 g/dl (6.4-8.2) 05/02/19 08:00 Albumin 3.4 g/dl (3.4-5.0) 05/02/19 08:00 RPR Titer Nonreactive (NONREACTIVE) 05/02/19 08:00 lab noted low K+ two doses K+ 40meq repeat K+ ast elevation discontinue librium begin ativan detox regiment Assessment: 05/02/19 14:54 alcohol withdrawal Plan: ativan regiment
[2019-05-02] MEDS ORDERED: METHADONE HCL 40 MG DISPERSABLE TABLET PO ONE (14:35)
[2019-05-02] MEDS ORDERED: LORazepam 0.5 MG TABLET PO PRN (15:05)
[2019-05-02] MEDS: POTASSIUM CHLORIDE ORAL LIQUID 20 MEQ/15 ML PO SCH ×2 (15:54→20:16)
--- NOTE | 2019-05-02 16:49 | EKG ---
Test Reason : Blood Pressure : / mmHG Vent. Rate : 085 BPM Atrial Rate : 085 BPM P-R Int : 192 ms QRS Dur : 106 ms QT Int : 418 ms P-R-T Axes : 065 036 066 degrees QTc Int : 497 ms NORMAL SINUS RHYTHM POSSIBLE LEFT ATRIAL ENLARGEMENT PROLONGED QT ABNORMAL ECG Confirmed by MD MARYAM, HECTOR ([id number]) on 05/02/2019 4:49:22 PM Referred By: Confirmed By:HECTOR FRANCISCO MD
--- NOTE | 2019-05-02 16:49 | EKG ---
Test Reason : Blood Pressure : / mmHG Vent. Rate : 079 BPM Atrial Rate : 079 BPM P-R Int : 200 ms QRS Dur : 102 ms QT Int : 478 ms P-R-T Axes : 057 040 069 degrees QTc Int : 548 ms SINUS RHYTHM WITH PREMATURE ATRIAL COMPLEXES POSSIBLE LEFT ATRIAL ENLARGEMENT PROLONGED QT ABNORMAL ECG Confirmed by MD MARYAM, HECTOR ([id number]) on 05/02/2019 4:49:35 PM Referred By: [place] Confirmed By:HECTOR FRANCISCO MD
--- NOTE | 2019-05-02 17:59 | CONSULT ---
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 This is one of multiple admissions for patient. Patient admitted to for alcohol dependence. Substance Abuse History: Smoking Cessation. Smoking history: Current every day smoker. Have you smoked in the past 12 months: Yes. Aproximately how many cigarettes per day: 5. Hx Chewing Tobacco Use: No. Initiated information on smoking cessation: Yes. 'Breaking Loose' booklet given: 05/01/19. - Substance & Tx. History. Hx Alcohol Use: Yes. Hx Substance Use: Yes. Substance Use Type : Alcohol, Cocaine, Marijuana. Hx Substance Use Treatment: Yes ([facility] - Substances abused. Alcohol. Substance route: Oral. Frequency: Daily. Amount used: 21/2 PINTS OF [place]. Age of first use: 21. Date of last use: Medical History: Hypertension, Hypercholesterolemia, h/o pulmonary embolism, Arthroscopic knee surgery 2007 Psychiatric History: Patient denies history of psychiatric hospitalization, outpatient care and suicide attempt. Physical/Sexual Abuse/Trauma History: denies. Mental Status Exam - Mental Status Exam Alert and Oriented to: Time, Place, Person Cognitive Function: Good Patient Appearance: Well Groomed Mood: Withdrawn Affect: Appropriate Patient Behavior: Appropriate, Cooperative Speech Pattern: Appropriate Voice Loudness: Normal Thought Process: Intact, Goal Oriented Thought Disorder: Not Present Hallucinations: Denies Suicidal Ideation: Denies Homicidal Ideation: Denies Insight/Judgement: Poor Sleep: Fair Appetite: Fair Muscle strength/Tone: Normal Gait/Station: Normal Psychiatric Findings - Problem List ([place] 1, 2,3) (1) Alcohol dependence with uncomplicated withdrawal Current Visit: Yes Status: Acute (2) Methadone maintenance therapy patient Current Visit: Yes Status: Chronic - Initial Treatment Plan Initial Treatment Plan: Psychoeducation provided. Detoxification in progress. Observation.
[2019-05-02] MEDS: LORazepam 0.5 MG TABLET PO SCH ×5 (18:09→20:16)
[2019-05-03] MEDS ORDERED: chlordiazePOXIDE HCL 25 MG CAPSULE PO SCH (05:00)
[2019-05-03] MEDS: METHADONE HCL 40 MG DISPERSABLE TABLET PO SCH (05:45)
[2019-05-03] MEDS: LORazepam 0.5 MG TABLET PO SCH ×3 (05:45→22:22)
[2019-05-03] MEDS: NICOTINE 14 MG/24 HOURS TOPICAL PATCH TD SCH (10:47)
[2019-05-03] MEDS: PRENATAL VITAMINS W/ FOLIC ACID TABLET (FP) PO SCH (10:47)
--- NOTE | 2019-05-03 14:04 | PN ---
[facility] CIWA - CIWA Score Nausea/Vomitin-Mild Nausea/No Vomiting Muscle Tremors: 3 Anxiety: 2 Agitation: 0-Normal Activity Paroxysmal Sweats: 1-Minimal Palms Moist Orientation: 0-Oriented Tacttile Disturbances: 0-None Auditory Disturbances: 0-None Visual Disturbances: 2-Mild Sensitivity Headache: 1-Very Mild CIWA-Ar Total Score: 10 S Progress Note (SOAP) Subjective: 69 years old male admitted on 05/01/19 for alcohol withdrawal sx management treating with ativan detox regiment feeling better today ambulating with cane on hallway discussing aftercare with staff Objective: 05/03/19 14:04 Vital Signs Temperature 97.9 F 05/03/19 12:35 Pulse Rate 88 05/03/19 12:35 Respiratory Rate 18 05/03/19 12:35 Blood Pressure 138/86 05/03/19 12:35 O2 Sat by Pulse Oximetry (%) Laboratory Last Values WBC 6.0 K/mm3 (4.0-10.0) 05/02/19 08:00 RBC 3.82 M/mm3 (4.00-5.60) L 05/02/19 08:00 Hgb 12.2 GM/dL (11.7-16.9) 05/02/19 08:00 Hct 36.2 % (35.4-49) 05/02/19 08:00 MCV 94.6 fl (80-96) 05/02/19 08:00 MCH 31.8 pg (25.7-33.7) 05/02/19 08:00 MCHC 33.7 g/dl (32.0-35.9) 05/02/19 08:00 RDW 16.2 % (11.9-15.9) H 05/02/19 08:00 Plt Count 190 K/MM3 (134-434) 05/02/19 08:00 MPV 9.0 fl (7.5-11.1) D 05/02/19 08:00 Sodium 135 mmol/L (136-145) L 05/02/19 08:00 Potassium 3.5 mmol/L (3.5-5.1) 05/03/19 07:40 Chloride 93 mmol/L (98-107) L 05/02/19 08:00 Carbon Dioxide 33 mmol/L (21-32) H 05/02/19 08:00 Anion Gap 9 MMOL/L (8-16) 05/02/19 08:00 BUN 11.9 mg/dL (7-18) 05/02/19 08:00 Creatinine 0.7 mg/dL (0.55-1.3) 05/02/19 08:00 Est GFR (CKD-EPI)AfAm 113.18 05/02/19 08:00 Est GFR (CKD-EPI)NonAf 97.65 05/02/19 08:00 Random Glucose 95 mg/dL (74-106) 05/02/19 08:00 Calcium 9.5 mg/dL (8.5-10.1) 05/02/19 08:00 Total Bilirubin 1.4 mg/dL (0.2-1) H 05/02/19 08:00 AST 90 U/L (15-37) H 05/02/19 08:00 ALT 92 U/L (13-61) H 05/02/19 08:00 Alkaline Phosphatase 107 U/L (45-117) 05/02/19 08:00 Total Protein 7.3 g/dl (6.4-8.2) 05/02/19 08:00 Albumin 3.4 g/dl (3.4-5.0) 05/02/19 08:00 RPR Titer Nonreactive (NONREACTIVE) 05/02/19 08:00 lab noted K+ supplement successfully 05/03/19 14:06 Assessment: 05/03/19 14:07 alcohol withdrawal Plan: ativan regiment
[2019-05-03] MEDS: THIAMINE HCL 100 MG TABLET (FP) PO SCH (22:22)
[2019-05-03] MEDS: MELATONIN 5 MG TABLETS PO PRN (22:23)
[2019-05-04] MEDS ORDERED: chlordiazePOXIDE HCL 10 MG CAPSULE PO PRN
[2019-05-04] MEDS ORDERED: chlordiazePOXIDE HCL 10 MG CAPSULE PO SCH (05:00)
[2019-05-04] MEDS: METHADONE HCL 40 MG DISPERSABLE TABLET PO SCH (05:39)
[2019-05-04] MEDS: LORazepam 0.5 MG TABLET PO SCH ×2 (05:40→17:04)
[2019-05-04] MEDS: PRENATAL VITAMINS W/ FOLIC ACID TABLET (FP) PO SCH (10:22)
[2019-05-04] MEDS: NICOTINE 14 MG/24 HOURS TOPICAL PATCH TD SCH (10:23)
--- NOTE | 2019-05-04 11:36 | PN ---
[facility] CIWA - CIWA Score Nausea/Vomitin-No Nausea/No Vomiting Muscle Tremors: 2 Anxiety: 0-No Anxiety, at Ease Agitation: 0-Normal Activity Paroxysmal Sweats: No Perspiration Orientation: 1-Uncertain about Date Tacttile Disturbances: 0-None Auditory Disturbances: 0-None Visual Disturbances: 0-None Headache: 0-None Present CIWA-Ar Total Score: 3 BHS Progress Note (SOAP) Subjective: Laboratory Tests 05/02/19 05/02/19 05/02/19 08:00 08:00 08:00 WBC 6.0 RBC 3.82 L Hgb 12.2 Hct 36.2 MCV 94.6 MCH 31.8 MCHC 33.7 RDW 16.2 H Plt Count 190 MPV 9.0 D Sodium 135 L Potassium 3.0 L Chloride 93 L Carbon Dioxide 33 H Anion Gap 9 BUN 11.9 Creatinine 0.7 Est GFR (CKD-EPI)AfAm 113.18 Est GFR (CKD-EPI)NonAf 97.65 Random Glucose 95 Calcium 9.5 Total Bilirubin 1.4 H AST 90 H ALT 92 H Alkaline Phosphatase 107 Total Protein 7.3 Albumin 3.4 RPR Titer Nonreactive 05/03/19 07:40 WBC RBC Hgb Hct MCV MCH MCHC RDW Plt Count MPV Sodium Potassium 3.5 Chloride Carbon Dioxide Anion Gap BUN Creatinine Est GFR (CKD-EPI)AfAm Est GFR (CKD-EPI)NonAf Random Glucose Calcium Total Bilirubin AST ALT Alkaline Phosphatase Total Protein Albumin RPR Titer No complaints, wants to go to [facility] Objective: 05/04/19 11:34 Laboratory Tests 05/02/19 05/02/19 05/02/19 08:00 08:00 08:00 WBC 6.0 RBC 3.82 L Hgb 12.2 Hct 36.2 MCV 94.6 MCH 31.8 MCHC 33.7 RDW 16.2 H Plt Count 190 MPV 9.0 D Sodium 135 L Potassium 3.0 L Chloride 93 L Carbon Dioxide 33 H Anion Gap 9 BUN 11.9 Creatinine 0.7 Est GFR (CKD-EPI)AfAm 113.18 Est GFR (CKD-EPI)NonAf 97.65 Random Glucose 95 Calcium 9.5 Total Bilirubin 1.4 H AST 90 H ALT 92 H Alkaline Phosphatase 107 Total Protein 7.3 Albumin 3.4 RPR Titer Nonreactive 05/03/19 07:40 WBC RBC Hgb Hct MCV MCH MCHC RDW Plt Count MPV Sodium Potassium 3.5 Chloride Carbon Dioxide Anion Gap BUN Creatinine Est GFR (CKD-EPI)AfAm Est GFR (CKD-EPI)NonAf Random Glucose Calcium Total Bilirubin AST ALT Alkaline Phosphatase Total Protein Albumin RPR Titer Vital Signs Temperature 97.0 F L 05/04/19 08:57 Pulse Rate 106 H 05/04/19 08:57 Respiratory Rate 16 05/04/19 08:57 Blood Pressure 123/88 05/04/19 08:57 O2 Sat by Pulse Oximetry (%) Pe gnl: WDWN, in no distress MS: awake, alert, nl language function Motor: grossly nl Assessment: 05/04/19 11:35 1. Alcohol use disorder 2. elevated LFTs, on Ativan 3. low K on admission Plan: 1. continue Ativan withdrawal protocol 2. repeat K, if still low will replete
[2019-05-04] MEDS: THIAMINE HCL 100 MG TABLET (FP) PO SCH (22:06)
[2019-05-04] MEDS: MELATONIN 5 MG TABLETS PO PRN (22:06)
[2019-05-04] MEDS: ATORVASTATIN CA 20 MG TABLET (FP) PO SCH (22:06)
[2019-05-05] MEDS ORDERED: LORazepam 0.5 MG TABLET PO ONE (05:00)
[2019-05-05] MEDS ORDERED: chlordiazePOXIDE HCL 10 MG CAPSULE PO SCH (05:00)
[2019-05-05] MEDS: LORazepam 0.5 MG TABLET PO PRN ×3 (06:14→22:05)
[2019-05-05] MEDS: METHADONE HCL 40 MG DISPERSABLE TABLET PO SCH (06:14)
[2019-05-05] MEDS ORDERED: RIVAROXABAN 20 MG TABLET PO SCH (10:00)
[2019-05-05] MEDS: PRENATAL VITAMINS W/ FOLIC ACID TABLET (FP) PO SCH (11:05)
[2019-05-05] MEDS: CHLORTHALIDONE 25 MG TABLET PO SCH (11:06)
[2019-05-05] MEDS: NICOTINE 14 MG/24 HOURS TOPICAL PATCH TD SCH (11:06)
--- NOTE | 2019-05-05 11:16 | PN ---
S CIWA - CIWA Score Nausea/Vomitin-No Nausea/No Vomiting Muscle Tremors: None Anxiety: 2 Agitation: 0-Normal Activity Paroxysmal Sweats: 1-Minimal Palms Moist Orientation: 0-Oriented Tacttile Disturbances: 0-None Auditory Disturbances: 0-None Visual Disturbances: 0-None Headache: 0-None Present CIWA-Ar Total Score: 3 BHS Progress Note (SOAP) Subjective: c/o mild withdrawal symptoms. Objective: 05/05/19 11:15 Vital Signs 05/05/19 05/05/19 05/05/19 03:30 07:04 08:49 Temperature 98.1 F 97.4 F L Pulse Rate 73 86 Respiratory 18 18 18 Rate Blood Pressure 130/88 142/92 Laboratory Last Values WBC 6.0 K/mm3 (4.0-10.0) 05/02/19 08:00 RBC 3.82 M/mm3 (4.00-5.60) L 05/02/19 08:00 Hgb 12.2 GM/dL (11.7-16.9) 05/02/19 08:00 Hct 36.2 % (35.4-49) 05/02/19 08:00 MCV 94.6 fl (80-96) 05/02/19 08:00 MCH 31.8 pg (25.7-33.7) 05/02/19 08:00 MCHC 33.7 g/dl (32.0-35.9) 05/02/19 08:00 RDW 16.2 % (11.9-15.9) H 05/02/19 08:00 Plt Count 190 K/MM3 (134-434) 05/02/19 08:00 MPV 9.0 fl (7.5-11.1) D 05/02/19 08:00 Sodium 135 mmol/L (136-145) L 05/02/19 08:00 Potassium 4.9 mmol/L (3.5-5.1) 05/05/19 07:20 Chloride 93 mmol/L (98-107) L 05/02/19 08:00 Carbon Dioxide 33 mmol/L (21-32) H 05/02/19 08:00 Anion Gap 9 MMOL/L (8-16) 05/02/19 08:00 BUN 11.9 mg/dL (7-18) 05/02/19 08:00 Creatinine 0.7 mg/dL (0.55-1.3) 05/02/19 08:00 Est GFR (CKD-EPI)AfAm 113.18 05/02/19 08:00 Est GFR (CKD-EPI)NonAf 97.65 05/02/19 08:00 Random Glucose 95 mg/dL (74-106) 05/02/19 08:00 Calcium 9.5 mg/dL (8.5-10.1) 05/02/19 08:00 Total Bilirubin 1.4 mg/dL (0.2-1) H 05/02/19 08:00 AST 90 U/L (15-37) H 05/02/19 08:00 ALT 92 U/L (13-61) H 05/02/19 08:00 Alkaline Phosphatase 107 U/L (45-117) 05/02/19 08:00 Total Protein 7.3 g/dl (6.4-8.2) 05/02/19 08:00 Albumin 3.4 g/dl (3.4-5.0) 05/02/19 08:00 RPR Titer Nonreactive (NONREACTIVE) 05/02/19 08:00 Labs noted. Assessment: 05/05/19 11:16 AOX3, in no respiratory distress. Full ROM, ambulating in the unit. Mild Withdrawal symptoms. For d/c tomorrow. Plan: Continue detox. D/C in AM.
[2019-05-05] MEDS: THIAMINE HCL 100 MG TABLET (FP) PO SCH (22:05)
[2019-05-05] MEDS: MELATONIN 5 MG TABLETS PO PRN (22:05)
[2019-05-05] MEDS: ATORVASTATIN CA 20 MG TABLET (FP) PO SCH (22:05)
[2019-05-06] MEDS ORDERED: chlordiazePOXIDE HCL 10 MG CAPSULE PO ONE (05:00)
[2019-05-06] MEDS ORDERED: LORazepam 0.5 MG TABLET PO ONE (05:00)
[2019-05-06] MEDS: METHADONE HCL 40 MG DISPERSABLE TABLET PO SCH (05:56)
[2019-05-06 06:47] VITALS: BP 122/86; PULSE 76; TEMP 97.9
--- NOTE | 2019-05-06 09:14 | DS ---
[facility] Detox Discharge Summary Admission Date: 05/01/19 Discharge Date: 05/06/19 - History Present History: Alcohol Dependence Additional Comments: 69 years old male admitted on 05/01/19 for alcohol withdrawal sx management treated with ativan detox regiment seen by psychiatrist no medical intervention Mr Young had completed the ativan regiment and was tolerated well alert oriented x 3 ambulating with cane steady gait cardiac [id number] regular rate rhythm ekg indicated left atrial enlargement denies chest pain no dizziness no shortness of breath respiratory clear lungs bilaterally on auscultation skin warm and dry Pertinent Past History: time for discharge 35 minutes patient reports that he was taking rivaraxaban two years ago for pulmonary embolism "doctor discontinue the medication a year ago" last dose "a year ago" patient has been follow up with his primary care provider as well as methadone maintenance program provider re reconcile home medication discontinue rivaroxaban begin aspirin - Physical Exam Results Vital Signs: Vital Signs Temperature 97.9 F 05/06/19 05:48 Pulse Rate 76 05/06/19 05:48 Respiratory Rate 18 05/06/19 05:48 Blood Pressure 122/86 05/06/19 05:48 O2 Sat by Pulse Oximetry (%) Pertinent Admission Physical Exam Findings: alcohol withdrawal Vital Signs Temperature 97.9 F 05/06/19 05:48 Pulse Rate 76 05/06/19 05:48 Respiratory Rate 18 05/06/19 05:48 Blood Pressure 122/86 05/06/19 05:48 O2 Sat by Pulse Oximetry (%) Laboratory Last Values WBC 6.0 K/mm3 (4.0-10.0) 05/02/19 08:00 RBC 3.82 M/mm3 (4.00-5.60) L 05/02/19 08:00 Hgb 12.2 GM/dL (11.7-16.9) 05/02/19 08:00 Hct 36.2 % (35.4-49) 05/02/19 08:00 MCV 94.6 fl (80-96) 05/02/19 08:00 MCH 31.8 pg (25.7-33.7) 05/02/19 08:00 MCHC 33.7 g/dl (32.0-35.9) 05/02/19 08:00 RDW 16.2 % (11.9-15.9) H 05/02/19 08:00 Plt Count 190 K/MM3 (134-434) 05/02/19 08:00 MPV 9.0 fl (7.5-11.1) D 05/02/19 08:00 Sodium 135 mmol/L (136-145) L 05/02/19 08:00 Potassium 4.9 mmol/L (3.5-5.1) 05/05/19 07:20 Chloride 93 mmol/L (98-107) L 05/02/19 08:00 Carbon Dioxide 33 mmol/L (21-32) H 05/02/19 08:00 Anion Gap 9 MMOL/L (8-16) 05/02/19 08:00 BUN 11.9 mg/dL (7-18) 05/02/19 08:00 Creatinine 0.7 mg/dL (0.55-1.3) 05/02/19 08:00 Est GFR (CKD-EPI)AfAm 113.18 05/02/19 08:00 Est GFR (CKD-EPI)NonAf 97.65 05/02/19 08:00 Random Glucose 95 mg/dL (74-106) 05/02/19 08:00 Calcium 9.5 mg/dL (8.5-10.1) 05/02/19 08:00 Total Bilirubin 1.4 mg/dL (0.2-1) H 05/02/19 08:00 AST 90 U/L (15-37) H 05/02/19 08:00 ALT 92 U/L (13-61) H 05/02/19 08:00 Alkaline Phosphatase 107 U/L (45-117) 05/02/19 08:00 Total Protein 7.3 g/dl (6.4-8.2) 05/02/19 08:00 Albumin 3.4 g/dl (3.4-5.0) 05/02/19 08:00 RPR Titer Nonreactive (NONREACTIVE) 05/02/19 08:00 lab noted - Treatment Hospital Course: Detox Protocol Followed, Detoxed Safely, Responded well, Discharged Condition Good, Rehab Referral Accepted Patient has Accepted [facility] Referral [facility] - Medication Discharge Medications: Ambulatory Orders Atorvastatin Ca [Lipitor] 20 mg PO HS 09/22/18 Chlorthalidone 25 mg PO DAILY 09/22/18 Pantoprazole Sodium [Protonix -] 40 mg PO DAILY tablet.ec 09/22/18 - Diagnosis (1) Alcohol dependence with uncomplicated withdrawal Current Visit: Yes Status: Acute (2) HLD (hyperlipidemia) Current Visit: Yes Status: Chronic Qualifiers: Hyperlipidemia type: unspecified Qualified Code(s): E78.5 - Hyperlipidemia , unspecified (3) HTN (hypertension) Current Visit: Yes Status: Chronic Qualifiers: Hypertension type: essential hypertension Qualified Code(s): I10 - Essential (primary) hypertension (4) Methadone maintenance therapy patient Current Visit: Yes Status: Chronic (5) Elevated liver enzymes Current Visit: Yes Status: Chronic (6) Prolonged Q-T interval on ECG Current Visit: Yes Status: Chronic - AMA Did Patient Leave Against Medical Advice: No CIWA Score - CIWA Score Nausea/Vomitin-No Nausea/No Vomiting Muscle Tremors: None Anxiety: 2 Agitation: 0-Normal Activity Paroxysmal Sweats: No Perspiration Orientation: 0-Oriented Tacttile Disturbances: 0-None Auditory Disturbances: 0-None Visual Disturbances: 0-None Headache: 0-None Present CIWA-Ar Total Score: 2
[2019-05-06] MEDS: PRENATAL VITAMINS W/ FOLIC ACID TABLET (FP) PO SCH (10:07)
[2019-05-06] MEDS: NICOTINE 14 MG/24 HOURS TOPICAL PATCH TD SCH (10:08)
[2019-05-06] MEDS: CHLORTHALIDONE 25 MG TABLET PO SCH (10:08)
== END 2019-05-06 11:30 | disposition home or self-care (01) | DRG 897 ==
LOC: YASAS 18:05 → Y3N 22:20
PROVIDERS: ADMIT Allergy & Immunology; ATTEND Allergy & Immunology
PROC: HZ2ZZZZ Detoxification Services for Substance Abuse Treatment (ICD-10-PCS; principal; 2019-05-01)
DX: F10.230 Alcohol dependence with withdrawal, uncomplicated (principal); F11.20 Opioid dependence, uncomplicated; F12.20 Cannabis dependence, uncomplicated; I10 Essential (primary) hypertension; E78.5 Hyperlipidemia, unspecified; E87.6 Hypokalemia; K70.10 Alcoholic hepatitis without ascites; R94.31 Abnormal electrocardiogram [ECG] [EKG]; R94.5 Abnormal results of liver function studies; K59.00 Constipation, unspecified; Z87.19 Personal history of other diseases of the digestive system
CPT/HCPCS: 36415; 80053; 84132; 85027; 86593; 93005; 93010

== ENCOUNTER 2019-11-27 10:22 | Inpatient (IN) | payer OTHER ==
--- NOTE | 2019-05-06 09:26 | HP ---
[facility] Rehab Assess/Revision - Admission History Admitted to Rehab [facility]: [facility] Date of Admission to Rehab: 05/06/19 - Findings Detox History & Physical reviewed: Yes Concur with findings: Yes Comments/Additional Findings: transferred from detox to rehab admission as per protocol Inpatient Rehab Admission - Rehab Decision to Admit Inpatient rehab admission?: Yes - Initial Determination Are CD services needed?: Yes Free of communicable disease: Yes Not in need of hospitalization: Yes - Rehab Admission Criteria Previous failed treatment: Yes Poor recovery environment: Yes Comorbidities: Yes Lacks judgement: Yes Patient is meeting Inpatient Rehab admission criteria:: Yes
[~2019-11-27 10:22] MED LIST: ACETAMINOPHEN 325 MG TABLET (FP) PO PRN; ATORVASTATIN CA 20 MG TABLET (FP) PO SCH; CHLORTHALIDONE 25 MG TABLET PO SCH; IBUPROFEN 400 MG TABLET (FP) PO PRN; LOPERAMIDE HCL 2 MG CAPSULE PO PRN; MAG HYDROX/AL HYDROX/SIMETH 30 ML UNIT-DOSE CUP PO PRN; MAGNESIUM CITRATE 300 ML BOTTLE PO PRN; MAGNESIUM HYDROX 2400MG/30ML ORAL SUSPENSION 30 ML CUP PO PRN; MELATONIN 5 MG TABLETS PO PRN; MENTHOL/PHENOL 1 EACH UD MM PRN; METHADONE HCL 10 MG TABLET PO SCH; NICOTINE 14 MG/24 HOURS TOPICAL PATCH TD SCH; NICOTINE POLACRILEX 2 MG GUM BUC PRN; P-EPHED 60MG/TRIPROLIDI 2.5MG TABLET PO PRN; PRENATAL VITAMINS W/ FOLIC ACID TABLET (FP) PO SCH; THIAMINE HCL 100 MG TABLET (FP) PO SCH; guaiFENesin 200 MG/10 ML 10 ML UNIT-DOSE CUPS PO PRN
--- NOTE | 2019-11-27 10:27 | BHS.RME ---
Substance Use & Tx History - Substance Use History Alcohol Substance amount: one pint Jewels Frequency of use: Daily Substance route: Oral Date of Last Use: 11/27/19 (First use age 32 y. No seizures. No blackouts. 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) Nicotine Substance amount: 1-2 cigs Frequency of use: Less than 3 times per week Substance route: Smoking Date of Last Use: 11/13/19 - Last Treatment Date of last treatment: Apr 2018 Treatment type: Substance Use Disorder (JONO) Where was last treatment: Detox Physical/Psych/Mental Status - Behavior General Behavior: Decreased activity Eye Contact: Normal - Cooperativeness Cooperativeness: Cooperative - Thinking Thought Processes: Tight Thought content: Future oriented - Physical Health Problems Is patient presently having any pain?: No Does patient presently have any injuries (include location): No Does patient currently have a fever: No CIWA Nausea/Vomitin-No Nausea/No Vomiting Muscle Tremors: 1-None Visible, but [place] Anxiety: 1-Mildly Anxious Agitation: 1-Slight > Activity Paroxysmal Sweats: 1-Minimal Palms Moist Orientation: 1-Uncertain about Date Tacttile Disturbances: 0-None Auditory Disturbances: 0-None Visual Disturbances: 0-None Headache: 0-None Present CIWA-Ar Total Score: 5
--- NOTE | 2019-11-27 11:16 | HP ---
CIWA Score Nausea/Vomitin-No Nausea/No Vomiting Muscle Tremors: 1-None Visible, but [place] Anxiety: 1-Mildly Anxious Agitation: 1-Slight > Activity Paroxysmal Sweats: 1-Minimal Palms Moist Orientation: 1-Uncertain about Date Tacttile Disturbances: 0-None Auditory Disturbances: 0-None Visual Disturbances: 0-None Headache: 0-None Present CIWA-Ar Total Score: 5 - Admission Criteria OASAS Guidelines: Admission for Medically Managed Detox: Requires at least one of the followin. CIWA greater than 12 2. Seizures within the past 24 hours 3. Delirium tremens within the past 24 hours 4. Hallucinations within the past 24 hours 5. Acute intervention needed for co occurring medical disorder 6. Acute intervention needed for co occurring psychiatric disorder 7. Severe withdrawal that cannot be handled at a lower level of care (continued vomiting, continued diarrhea, abnormal vital signs) requiring intravenous medication and/or fluids 8. Admitting History and Physical - Admission Chief Complaint: Mr. Young is a 69 yo man who was escorted to [facility] by his family requesting detox admission for alcohol use. History of Present Illness: Mr. Young is a 69 yo man who was escorted to [facility] by his family requesting detox admission for alcohol use. His family lifts him out of the care stating he is currently intoxicated. He was last here in Apr 2018 and completed detox. PMH: chronic knee pain PSH; Bilateral knee, meniscus repair, cane to ambulate Psych: denies SOC: lives alone in [place] [employer] Legal: none Substance Use History Alcohol Substance amount: one pint Jewels Frequency of use: Daily Substance route: Oral Date of Last Use: 11/27/19 (First use age 32 y. No seizures. No blackouts. 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) Nicotine Substance amount: 1-2 cigs Frequency of use: Less than 3 times per week Substance route: Smoking Date of Last Use: 11/13/19 - Last Treatment Date of last treatment: Apr 2018 Treatment type: Substance Use Disorder (JONO) Where was last treatment: Detox Meets admission criteria due to current level of intoxication precludes full assessment of withdrawal. Additionally, pt is hypertensive and tachycardic, will monitor. History Source: Patient Limitations to Obtaining History: No Limitations - Past Medical History [employer]IOR [employer]GER: Yes: Other (dizziness ) Cardiovascular: Yes: HTN Pulmonary: Yes: Other (PE ) Gastrointestinal: Yes: Constipation (last BM 3 mei go , he has one BM today morning ). No: Ascites Psych: Yes: Addictions (methadone , alcohol , marijuana ) Rheumatology: Yes: Other (B.l Knee pain ) - Smoking History Smoking history: Current every day smoker Have you smoked in the past 12 months: Yes Aproximately how many cigarettes per day: 5 - Alcohol/Substance Use Hx Alcohol Use: Yes Number of Drinks Daily: 1 (1.5 pind of Jewels , last use Yesterday ) History of Substance Use: reports: Heroin, Marijuana, Prescription (methadone ) Date of Last Use: 09/16/18 (Marijuana ) - Social History ADL: Independent Admission [facility] Allergies/Adverse Reactions: Allergies Allergy/AdvReac Type Severity Reaction Status Date / Time No Known Allergies Allergy Verified 11/27/19 11:18 Exam Limitations: No Limitations - Ebola screening Have you traveled outside of the country in the last 21 days: No Have you been sick,other than usual withdrawal symptoms: No Do you have a fever: No - Review of Systems Constitutional: No Symptoms Reported EENT: reports: No Symptoms Reported Respiratory: reports: No Symptoms reported Cardiac: reports: No Symptoms Reported GI: reports: No Symptoms Reported : reports: No Symptoms Reported Musculoskeletal: reports: Joint Pain (chronic knee pain, bilateral) Integumentary: reports: No Symptoms Reported Neuro: reports: No Symptoms reported Endocrine: reports: No Symptoms Reported Hematology: reports: No Symptoms Reported Psychiatric: reports: Anxious Patient History - Patient Medical History Hx Anemia: No Hx Asthma: No Hx Chronic Obstructive Pulmonary Disease (COPD): No Hx Cancer: No Hx Cardiac Disorders: No Hx Congestive Heart Failure: No Hx Hypertension: Yes Hx Hypercholesterolemia: Yes Hx Pacemaker: No HX Cerebrovascular Accident: No Hx Seizures: No Hx Dementia: No Hx Diabetes: No Hx Gastrointestinal Disorders: No Hx Liver Disease: No Hx Genitourinary Disorders: No Hx Sexually Transmitted Disorders: No Hx Renal Disease (ESRD): No Hx Thyroid Disease: No Hx Human Immunodeficiency Virus (HIV): No Hx Hepatitis C: No Hx Depression: Yes Hx Suicide Attempt: No (Denies suicide attempt and suicidal ideation at this time) Hx Bipolar Disorder: No Hx Schizophrenia: No - Patient Surgical History Past Surgical History: Yes Hx Neurologic Surgery: No Hx Cataract Extraction: No Hx Cardiac Surgery: No Hx Lung Surgery: No Hx Breast Surgery: No Hx Breast Biopsy: No Hx Abdominal Surgery: No Hx Appendectomy: No Hx Cholecystectomy: No Hx Genitourinary Surgery: No Hx Section: No Hx Orthopedic Surgery: Yes (Arthroscopic knee surgery 2007) Anesthesia Reaction: No - Smoking Cessation Smoking history: Current every day smoker Have you smoked in the past 12 months: Yes Aproximately how many cigarettes per day: 5 Hx Chewing Tobacco Use: No Initiated information on smoking cessation: Yes 'Breaking Loose' booklet given: 11/27/19 Admission Physical Exam [facility] - Vital Signs Vital Signs: vitals: 164/101, HR 123, RR 20, temp 97.6 - Physical General Appearance: Yes: No Apparent Distress, Nourished, Appropriately Dressed, Intoxicated HEENTM: Yes: EOMI, Hearing grossly Normal, Normocephalic, Normal Voice Respiratory: Yes: Lungs Clear, No Respiratory Distress, No Accessory Muscle Use Neck: Yes: Within Normal Limits, Supple Breast: Yes: Breast Exam Deferred Cardiology: Yes: Regular Rhythm, Regular Rate Abdominal: Yes: Normal Bowel Sounds, Non Tender, Flat, Soft Genitourinary: Yes: Other (deferred) Back: Yes: Normal Inspection Musculoskeletal: Yes: Other (gait not tested as pt intoxicated and at baseline uses a cane) Extremities: Yes: Normal Inspection, Other (tender knees, no sign of inflammation) Neurological: Yes: Alert, Normal Response Integumentary: Yes: Within Normal Limits - Diagnostic (1) Methadone maintenance therapy patient Current Visit: Yes Status: Acute Comment: 1. continue methadone 40 mg daily, dose has been verified (2) Chronic knee pain Current Visit: Yes Status: Chronic Qualifiers: Laterality: bilateral Qualified Code(s): M25.561 - Pain in right knee; M25.562 - Pain in left knee; G89.29 - Other chronic pain Comment: 1. cane to ambulate 2. fall precautions (3) Gait instability Current Visit: Yes Status: Acute Comment: 1. as above, no recent falls reported (4) Alcohol dependence with uncomplicated withdrawal Current Visit: Yes Status: Acute Comment: 1. Admit detox protocol 2. Routine labs, plan Ativan as prior elevation LFTs Cleared for Admission [facility] - Detox or Rehab [facility] Level of Care: Medically Managed Detox Regimen/Protocol: Ativan Breathalyzer - Breathalyzer Breathalyzer: 0.249 Urine Drug Screen - Test Device Lot number: [id number] Expiration date: 07/04/20 - Control Is test valid?: Yes - Results Drug screen NEGATIVE: No (await urine) Inpatient Rehab Admission - Rehab Decision to Admit Inpatient rehab admission?: No
[2019-11-27] MEDS ORDERED: MENTHOL/PHENOL 1 EACH UD MM PRN (11:27)
[2019-11-27] MEDS ORDERED: MAG HYDROX/AL HYDROX/SIMETH 30 ML UNIT-DOSE CUP PO PRN (11:27)
[2019-11-27] MEDS ORDERED: BISMUTH SUBSALICYLATE 262 MG/15 ML BTL PO PRN (11:27)
[2019-11-27] MEDS ORDERED: METHOCARBAMOL 500 MG TABLET PO PRN (11:27)
[2019-11-27] MEDS ORDERED: ACETAMINOPHEN 325 MG TABLET (FP) PO PRN ×2 (11:27)
[2019-11-27] MEDS ORDERED: MAGNESIUM CITRATE 300 ML BOTTLE PO PRN (11:27)
[2019-11-27] MEDS ORDERED: NICOTINE POLACRILEX 2 MG GUM BUC PRN (11:27)
[2019-11-27] MEDS ORDERED: LORazepam 1 MG TABLET PO PRN (11:27)
[2019-11-27] MEDS ORDERED: MAGNESIUM HYDROX 2400MG/30ML ORAL SUSPENSION 30 ML CUP PO PRN (11:27)
[2019-11-27] MEDS ORDERED: ONDANSETRON *ODT* 4 MG TABLET SL PRN (11:27)
[2019-11-27 12:10] VITALS: BMI 26.2
--- NOTE | 2019-11-27 12:29 | EKG ---
Test Reason : Blood Pressure : / mmHG Vent. Rate : 109 BPM Atrial Rate : 109 BPM P-R Int : 188 ms QRS Dur : 098 ms QT Int : 332 ms P-R-T Axes : 059 042 061 degrees QTc Int : 447 ms SINUS TACHYCARDIA POSSIBLE LEFT ATRIAL ENLARGEMENT BORDERLINE ECG WHEN COMPARED WITH ECG OF 02-MAY-2019 09:55, NO SIGNIFICANT CHANGE WAS FOUND Confirmed by Luis M Upton MD ([id number]) on 11/27/2019 12:29:12 PM Referred By: Confirmed By:Luis M Upton MD
[2019-11-27] MEDS: ASPIRIN 81 MG CHEWABLE TABLETS PO SCH (12:55)
[2019-11-27] MEDS: PANTOPRAZOLE 40 MG TABLET PO SCH (12:55)
[2019-11-27] MEDS: METHADONE HCL 40 MG DISPERSABLE TABLET PO SCH (12:55)
--- OUTSIDE RECORDS SUMMARY | 2019-11-27 13:51 | XMS ---
:1950 Author Organization [facility] Care Team Providers Name Role Phone Ringstad, Nuris Unavailable Unavailable Ringstad, Nuris Unavailable Unavailable Ringstad, Nuris Unavailable Unavailable Ringstad, Nuris Unavailable Unavailable Ringstad, Nuris Unavailable Unavailable Ringstad, Nuris Unavailable Unavailable Ringstad, Nuris Unavailable Unavailable Ringstad, Nuris Unavailable Unavailable Ringstad, Nuris Unavailable Unavailable Ringstad, Nuris Unavailable Unavailable Ringstad, Nuris Unavailable Unavailable TOM CASTORENA MD Unavailable Unavailable TOM CASTORENA MD Unavailable Unavailable TOM CASTORENA MD Unavailable Unavailable TOM CASTORENA MD Unavailable Unavailable TOM CASTORENA MD Unavailable Unavailable TOM CASTORENA MD Unavailable Unavailable ED STAFF PHYSICIAN, STAFF Unavailable Unavailable Coloka-Kump, Rodika DO Unavailable Unavailable Coloka-Kump, Rodika DO Unavailable Unavailable Coloka-Kump, Rodika DO Unavailable Unavailable Coloka-Kump, Rodika DO Unavailable Unavailable Coloka-Kump, Rodika DO Unavailable Unavailable Coloka-Kump, Rodika DO Unavailable Unavailable Coloka-Kump, Rodika DO Unavailable Unavailable Coloka-Kump, Rodika DO Unavailable Unavailable Coloka-Kump, Rodika DO Unavailable Unavailable Coloka-Kump, Rodika DO Unavailable Unavailable Coloka-Kump, Rodika DO Unavailable Unavailable Coloka-Kump, Rodika DO Unavailable Unavailable Coloka-Kump, Rodika DO Unavailable Unavailable Coloka-Kump, Rodika DO Unavailable Unavailable Coloka-Kump, Rodika DO Unavailable Unavailable Coloka-Kump, Rodika DO Unavailable Unavailable Coloka-Kump, Rodika DO Unavailable Unavailable DOCTOR, NO Unavailable Unavailable KAREEM SEIN Y, SEIN Unavailable Unavailable LALO BRANDON MD Unavailable Unavailable Lowry Unavailable Unavailable Lowry Unavailable Unavailable Lowry Unavailable Unavailable Lowry Unavailable Unavailable Lowry Unavailable Unavailable Lowry Unavailable Unavailable Lowry Unavailable Unavailable Lowry Unavailable Unavailable Lowry Unavailable Unavailable Lowry Unavailable Unavailable ED STAFF PHYSICIAN Unavailable Unavailable Angeline Syvlester MD Unavailable Unavailable Angeline Sylvester MD Unavailable Unavailable Angeline Sylvester MD Unavailable Unavailable Angeline Sylvester MD Unavailable Unavailable Angeline Sylvester MD Unavailable Unavailable Angeline Sylvester MD Unavailable Unavailable Angeline Sylvester MD Unavailable Unavailable Specialist/PCP, no Unavailable Unavailable [id number] Unavailable Unavailable MD SHRUTI Unavailable Unavailable CONRADO, DO Unavailable Unavailable Routen Unavailable Unavailable Routen Unavailable Unavailable Aszalos, Malia Unavailable Unavailable Aszalos, Malia Unavailable Unavailable Aszalos, Mlaia Unavailable Unavailable Aszalos, Malia Unavailable Unavailable Aszalos, Malia Unavailable Unavailable Aszalos, Malia Unavailable Unavailable Aszalos, Malia Unavailable Unavailable Aszalos, Malia Unavailable Unavailable Aszalos, Malia Unavailable Unavailable Marycarmen Unavailable [phone] [place] Unavailable [phone] MD MARIBEL Unavailable Unavailable Mari Vuong MD Unavailable Unavailable Mari Vuong MD Unavailable Unavailable Mari Vuong MD Unavailable Unavailable Mari Vuong MD Unavailable Unavailable Mari Vuong MD Unavailable Unavailable Mari Vuong MD Unavailable Unavailable Mari Vuong MD Unavailable Unavailable Mari Vuong MD Unavailable Unavailable Mari Vuong MD Unavailable Unavailable Mari Vuong MD Unavailable Unavailable Mari Vuong MD Unavailable Unavailable Mari Vuong MD Unavailable Unavailable Mari Vuong MD Unavailable Unavailable Mari Vuong MD Unavailable Unavailable Mari Vuong MD Unavailable Unavailable ALVARADO, K DO Unavailable ALVARADO, K DO Unavailable MD TRAVIS Unavailable Unavailable Re-disclosure Warning The records that you are about to access may contain information from federally- assisted alcohol or drug abuse programs. If such information is present, then the following federally mandated warning applies: This information has been disclosed to you from records protected by federal confidentiality rules (42 CFR part 2). The federal rules prohibit you from making any further disclosure of this information unless further disclosure is expressly permitted by the written consent of the person to whom it pertains or as otherwise permitted by 42 CFR part 2. A general authorization for the release of medical or other information is NOT sufficient for this purpose. The Federal rules restrict any use of the information to criminally investigate or prosecute any alcohol or drug abuse patient.The records that you are about to access may contain highly sensitive health information, the redisclosure of which is protected by Article 27-F of the [facility] Public Health law. If you continue you may haveaccess to information: Regarding HIV / AIDS; Provided by facilities licensed or operated by the [facility] Office of Mental Health; or Provided by the [facility] Office for People With Developmental Disabilities. If such information is present, then the following [facility] mandated warning applies: This information has been disclosed to you from confidential records which are protected by state law. State law prohibits you from making any further disclosure of this information without the specific written consent of the person to whom it pertains, or as otherwise permitted by law. Any unauthorized further disclosure in violation of state law may result in a fine or mcfp sentence or both. A general authorization for the release of medical or other information is NOT sufficient authorization for further disclosure. Allergies and Adverse Reactions Type Description Substance Reaction Status Data Source(s ) Drug allergy No Known Allergies No Known [facility] Allergies [facility] Propensity to Propensity to Propensity to NEXTG EN ([facility] adverse reactions adverse reactions adverse reactions [facility] (disorder) (disorder) (disorder) Center) Family History Family Member Family Member Family Member Date of Description Data Source(s) Name Gender Status Status Unknown Female Problem 09/06/2019 NEXTGEN ( (finding) 12:00:00 AM [facility] al EDT [place]) Encounters Encounter Providers Location Date Indications Data Source(s ) Attender: [facility] 11/09/2019 NEXTGE N ([facility] 10:32:00 Con AM EDT - Medical 11/09/2019 Center) 10:32:00 AM EDT Outpatient Attender: 10/17/2019 [facility] Nuris 02:40:00 [facility] RingstadAdmfranciscae PM EDT r: Nuris Mcclelland r: Nuris [place] OutpatientOFFICE Attender: [facility] 10/17/2019 N EXTGEN ([facility] 02:40:00 [facility] VISIT, EST PM EDT - Medical 10/17/2019 [place]) 02:40:00 PM EDT Outpatient 09/06/2019 [facility] 11:31:00 [facility] AM EDT Outpatient Attender: 09/06/2019 [facility] Nuris 10:14:00 [facility] RingstadAmaríae AM EDT r: Nuris Mcclelland r: Nuris [place] OutpatientOFFICE Attender: [facility] 09/06/2019 N EXTGEN ([facility] 10:14:00 [facility] VISIT, EST AM EDT - [facility] 09/06/2019 [place]) 10:14:00 AM EDT Outpatient 09/06/2019 [facility] 12:00:00 [facility] AM EDT Attender: [facility] 09/04/2019 NEXTGEN ([facility] 11:30:00 [facility] EDT - [facility] 09/04/2019 [place]) 11:30:00 AM EDT Outpatient 07/06/2019 NEXTGEN 07:59:00 ([place] AM EDT Healthcare) Outpatient 07/05/2019 NEXTGEN 08:18:00 ([place] AM EDT Healthcare) Inpatient Attender: 06/20/[address] [facility] TOM CASTORENA 09:42:00 WITHDRAWAL [facility] MDA[facility]ender[facility] [place] DOAttender: 10:02:00 BALKEAR ROBLES PM EDT MDAdmitter: GREG ROBLES MDReferrer: NO DOCTORConsultan t: Patient- Specialist/PCP ALCOHOL WITHDRAWAL Patient discharged. Emergency Attender: ANTONIO BAHENA 06/20/2019 07:29:[address] [facility] MDAttender: RALPH CAMP PM EDT Hospital DOReferrer: NO [place] DOCTORConsultant: Patient- Specialist/PCP DETOX P 06/20/2019 07:29:00 PM EDT DETOX [facility] DETOX P 06/20/2019 07:29:00 PM EDT DETOX [facility] DETOX P 06/20/2019 07:28:00 PM EDT DETOX [facility] DETOX P 06/20/2019 07:28:00 PM EDT DETOX [facility] DETOX P 06/20/2019 07:14:00 PM EDT DETOX [facility] DETOX P 06/20/2019 07:11:00 PM EDT DETOX [facility] DETOX P 06/20/2019 07:09:00 PM EDT DETOX [facility] DETOX P 06/20/2019 07:09:00 PM EDT DETOX [facility] DETOX P 06/20/2019 07:04:00 PM EDT DETOX [facility] DETOX P 06/20/2019 07:04:00 PM EDT DETOX [facility] DETOX P 06/20/2019 07:03:00 PM EDT DETOX [facility] DETOX P 06/20/2019 07:02:00 PM EDT DETOX [facility] DETOX P 06/20/2019 07:02:00 PM EDT DETOX [facility] DETOX P 06/20/2019 07:01:00 PM EDT DETOX [facility] DETOX P 06/20/2019 06:48:00 PM EDT DETOX [facility] DETOX P 06/20/2019 06:47:00 PM EDT DETOX [facility] DETOX Emergency Attender: Luis Marcus 04/20/2019 01:31: [address] [facility] MDAttender: STAFF ED STAFF EST - 04/20/2019 [facility] Center PHYSICIANAdmitter: Luis 06:58:00 PM EST [facility] Patient discharged. Attender: [facility] 03/02/2019 03:23:[facility] - 03/02/2019 [facility] 03:23:00 PM [facility] Center) Outpatient 03/01/2019 12:38:00 [facility] Outpatient 03/01/2019 12:00:00 [facility] Emergency Attender: ED STAFF H 02/24/2019 01:47:00 [facility] PHYSICIANAttender: PM EST - 02/24/2019 Medical Center STAFF ED STAFF 03:37:00 PM EST PHYSICIANAdmitter: ED STAFF PHYSICIAN Patient discharged. Attender: [facility] 01/15/2019 05:46:00 NEXTGEN ([facility] EST - 01/15/2019 [facility] Medical 05:46:00 PM [facility]) Inpatient Attender: ASHLEY FISHER-1D 01/11/2019 04:34:00 [facility] RODRIGUEZANAdmmichelle [facility] - 01/29/2019 Hospital r: LALO BRANDON 11:19:00 PM EST Patient discharged. Attender: 01/11/2019 [facility] [id number] 04:34:00 PM [facility]6766 Outpatient [facility] 01/11/2019 [facility] 12:43:00 PM EST - Hospita l 01/11/2019 05:40:00 PM EST Patient discharged. Attender: 01/11/2019 [facility] [id number] 12:43:00 PM [facility]_[id number] Inpatient Attender: LISS LEIJA YAttender: H-HAL5 01/08/2019 [facility] STAFF ED STAFF PHYSICIANAdmitter: 12:25:00 PM [facility] LISS LEIJA YReferrer: LISS SERNA - 01/11/2019 LISS Y 12:18:00 PM EST Patient discharged. Outpatient 01/08/2019 12:18:00 PM [facility] Outpatient 01/08/2019 12:00:00 AM [facility] - 01/11/2019 Center 12:00:00 AM [facility] Outpatient 01/05/2019 09:52:00 AM [facility] EDT Center Outpatient 01/05/2019 12:00:00 AM Sa int Con Medical EDT Center Inpatient Attender: Last Marcus-HAL6 12/29/2018 03:15:00 PM [facility] EDT - 01/04/2019 Center DOAdmitter: Last 01:40:[address] [facility] DOReferrer: Last [facility] DO Patient discharged. Attender: [facility] 09/13/2018 NEXT N ([facility] 01:54:00 PM EDT [facility] 09/13/2018 [place]) 01:54:00 PM EDT Emergency H 09/12/2018 [facility] 01:44:00 PM EDT Medical C enter Emergency H 09/03/2018 [facility] 11:24:00 AM EDT Medical C enter Attender: [facility] 07/24/2018 [facility] ([facility] 11:22:00 AM T [facility] 07/24/2018 [place]) 11:22:00 AM EDT Attender: [facility] 07/17/2018 [facility] ([facility] 10:51:00 AM EDT [facility] 07/17/2018 [place]) 10:51:00 AM EDT OutpatientOFFICE/O Attender: [facility] 03/31/2018 [facility] ([facility] VISIT, [facility] 10:38:00 AM [facility] 03/31/2018 [place]) 10:38:00 AM EST OutpatientOFFICE/O Attender: [facility] 03/21/2018 [facility] ([facility] VISIT, [facility] 10:01:00 AM [facility] 03/21/2018 [place]) 10:01:00 AM EST Immunizations Vaccine Date Status Description Data Source(s) New in 2011. IIV4 12/30/2018 completed [facility] Medical 06:15:00 PM EDT Center pneumococcal 03/17/2018 completed [facility] edical polysaccharide [id number] 04:08:00 PM EST Cent er pneumococcal 03/17/2018 completed [facility] edical polysaccharide [id number] 04:08:00 PM EST Cent er Medications Medication Brand Start Product Dose Route Administrative [facility] Indications Reaction Description Data Name Date Form Instructions Instructions Source(s) atorvastati atorva 08/12/ 1.00 ORAL active take 1 NEXTGEN n 40 MG statin 2020 {tabl tablet by (Tim nt Oral Tablet 40 mg 12:00: et} oral route Con atorvastati tablet 00 AM every day Medical n 40 mg EDT Center) tablet Chlorthalid chlort . ORAL active take 1 NEXTGEN one 25 MG halido 2020 {tabl tablet by (S aint Oral Tablet ne 25 12:00: et} oral route Con chlorthalid mg 00 AM every day Me dical one 25 mg tablet EDT Center) tablet atorvastati atorva ORAL complet take 2 NEXTGEN n 20 MG statin 2020 {tabl ed tablet by (Tim nt Oral Tablet 20 mg 12:00: et} oral route Con atorvastati tablet 00 AM every day Medical n 20 mg EDT Center) tablet Aspirin 81 aspiri .00 ORAL active take 1 N EXTGEN MG Delayed n 81 2020 {tabl tablet by (Sa int Release mg 12:00: et} oral route Flex phs Oral Tablet tablet 00 AM every day Medical aspirin 81 ,delay EDT Center) mg ed tablet,cathy releas yed release e atorvastati atorva . ORAL complet take 1 NEXTGEN n 20 MG statin 2020 {tbl} ed tablet by (Tim nt Oral Tablet 20 mg 12:00: oral route Con atorvastati tablet 00 AM every day Medical n 20 mg EDT Center) tablet Medication administered onsite Thiamine 100 THIAMINE 06/28/2019 TABLET [address] [facility] MG Oral Tablet MONONITRATE 12:00:00 AM DAY [place] THIAMINE (VIT B1) EDT Hospita l MONONITRATE (VITAMIN B-1) - (VIT B1) 100 MG TABLET [place] (VITAMIN B-1) 100 MG TABLET Folic Acid 1 FOLIC ACID 1 06/28/2019 TABLET [address] [facility] MG Oral Tablet MG TABLET 12:00:00 AM DAY [place] FOLIC ACID 1 EDT Hospita l MG TABLET - [place] Methadone METHADONE HCL 06/28/2019 TABLET [address] [facility] Hydrochloride 10 MG TABLET 12:00:00 AM [place] 10 MG Oral EDT Hospital Tablet - METHADONE HCL [facility] gh 10 MG TABLET MULTIVITAMIN 06/28/2019 TABLET [address] [facility] (MULTI-VITAMIN 12:00:00 AM DAY [place] DAILY) 1 EACH EDT Hospit al TABLET - [place] Chlorthalidone Chlorthalidone 01/19/2019 1 ORA completed Chlorth [facility] 25 MG Oral - 25 MG ORAL 12:00:00 AM Tablet L [facility]one [facility] Tablet Tablet EST - 25 MG Hospital ORAL Tablet pantoprazole Protonix - 40 01/19/2019 1 ORA completed Protoni [facility] 40 MG Delayed MG ORAL 12:00:00 AM Tablet L x - 40 [facility] Release Oral Tablet, EST MG ORAL H ospital Tablet Enteric Coated Tablet, [Protonix] Enteric Coated atorvastatin Atorvastatin 01/19/2019 1 ORA completed Atorvas [facility] 20 MG Oral Calcium - 20 12:00:00 AM Tablet L tatin [facility] Tablet MG ORAL Tablet EST [facility] - 20 MG ORAL Tablet rivaroxaban 20 Xarelto 20 mg 03/31/2018 1.00 ORA completed rivarox NEXTGEN MG Oral Tablet tablet 12:00:00 AM {tbl} L aban 20 ([facility] [Xarelto] EST MG Oral Con Xarelto 20 mg Tablet Medi estrella tablet [Xarelt [place]) o] Methadone methaDONE 40 1 completed [facility] Hydrochloride mg Antonio s 0.333 MG/ML tablet,soluble Medical Oral , Ordered By: [place] Suspension Mickey Berry, methaDONE 40 MDDirections: mg 1 tablet oral tablet,soluble daily , Ordered By: Mickey Berry, MDDirections: 1 tablet oral daily Aspirin 81 MG aspirin 81 mg 1.00 ORA completed take 1 NEXTGEN Delayed tablet,delayed {tbl} L tablet ([facility] Release Oral release by oral J osephs Tablet aspirin route Medi estrella 81 mg every Center) tablet,delayed day release Indomethacin indomethacin 1 completed [facility] 50 MG Oral 50 mg Capsule, Con Capsule Ordered By: Medic clinton indomethacin [facility] 50 mg Capsule, Fahnrich, Ordered By: MDDirections: Amadou 1 capsule oral Fahnrich, three times a MDDirections: day 1 capsule oral three times a day atorvastatin atorvastatin 1 completed [facility] 20 MG Oral 20 mg Tablet, Con Tablet Ordered By: Yadi berry atorvastatin Shelly Cente r 20 mg Tablet, Gerald, Ordered By: MDDirections: Shelly 1 tablet oral Gerald, daily at MDDirections: bedtime 1 tablet oral daily at bedtime Thiamine 100 thiamine HCl 1 completed [facility] MG Oral Tablet (vitamin B1) Con thiamine HCl 100 mg Tablet, Medical (vitamin B1) Ordered By: [place] 100 mg Tablet, Shelly Ordered By: Shelly Duarte MDDirections: [place], 1 tablet oral MDDirections: daily 1 tablet oral daily pantoprazole pantoprazole 1 completed [facility] 40 MG Delayed 40 mg [facility] Release Oral tablet,delayed Medical Tablet release [place] pantoprazole (DR/EC), 40 mg Ordered By: tablet,delayed Shelly release Gerald, (DR/EC), MDDirections: Ordered By: 1 tablet oral Shelly daily before [place], breakfast MDDirections: 1 tablet oral daily before breakfast multivit with 1 completed Theral o [facility] min-folic acid gix [facility] (Theralogix Compani Medic al [employer] Coat [employer]er) 0.4 on Cente r mg Tablet, Ordered By: Shelly Duarte MDDirections: 1 tablet oral daily Ibuprofen 600 ibuprofen 600 1 completed [facility] MG Oral Tablet mg Tablet, Con ibuprofen 600 Ordered By: Medical mg Tablet, Shelly [place] Ordered By: Shelly Duarte MDDirections: Gerald, 1 tablet oral MDDirections: every six 1 tablet oral hours PRN PAIN every six hours PRN PAIN Methadone methaDONE 1 completed Metha DO [facility] Hydrochloride (MethaDOSE) 40 S E Con 0.333 MG/ML mg Medical Oral tablet,soluble Cente r Suspension , Ordered By: [Methadose] Shelly methaDONE Gerald, (MethaDOSE) 40 MDDirections: mg 1 tablet oral tablet,soluble daily , Ordered By: Shelly Duarte MDDirections: 1 tablet oral daily Methadone methaDONE 40 1 completed [facility] Hydrochloride mg Antonio s 0.333 MG/ML tablet,soluble Medical Oral , Ordered By: [place] Suspension Jessika methaDONE 40 Nuno, mg MDDirections: tablet,soluble 1 tablet oral , Ordered By: daily Jessika Nuno MDDirections: 1 tablet oral daily Chlorthalidone chlorthalidone 1 completed [facility] 25 MG Oral 25 mg Tablet, Con Tablet Ordered By: Yadi berry chlorthalidone Shelly [address] 25 mg Tablet, Gerald, Ordered By: MDDirections: Shelly 1 tablet oral Gerald, daily MDDirections: 1 tablet oral daily apixaban 5 MG Eliquis 5 mg 1.00 ORA active a pixaba NEXTGEN Oral Tablet tablet {tbl} L n 5 MG (Sa int [Eliquis] Oral Con Eliquis 5 mg Tablet Medic al tablet [[facility]) s] atorvastatin atorvastatin 1.00 ORA completed take 1 NEXTGEN 20 MG Oral 20 mg tablet {tbl} L table t (Saint Tablet by oral Con atorvastatin route Medica l 20 mg tablet every Center ) day Chlorthalidone chlorthalidone 1 completed [facility] 25 MG Oral 25 mg Tablet, Con Tablet Ordered By: Yadi berry chlorthalidone Mickey Orozcoro, Center 25 mg Tablet, MDDirections: Ordered By: 1 tablet oral Mickey Berry, daily MDDirections: 1 tablet oral daily atorvastatin atorvastatin 1 completed [facility] 20 MG Oral 20 mg Tablet, Con Tablet Ordered By: Yadi berry atorvastatin Mickey Orozcoro, Center 20 mg Tablet, MDDirections: Ordered By: 1 tablet oral Mickey Berry, daily at MDDirections: bedtime 1 tablet oral daily at bedtime Aspirin 81 MG aspirin 81 mg 1 completed [facility] Chewable tablet,chewabl J osephs Tablet aspirin e, Ordered By: Medical 81 mg Mickey Orozcoro, Cent er tablet,chewabl MDDirections: e, Ordered By: 1 tablet oral Mickey Berry, daily MDDirections: 1 tablet oral daily rivaroxaban 15 rivaroxaban 1 completed Xarelto [facility] MG Oral Tablet (Xarelto) 15 Con [Xarelto] mg Tablet, [facility] rivaroxaban Ordered By: John enter (Xarelto) 15 Mickey Berry, mg Tablet, MDDirections: Ordered By: 1 tablet oral Mickey Berry, twice a day MDDirections: 1 tablet oral twice a day CHLORTHALIDONE completed [facility] 25 MG Con TABLETDirectio Medic al ns: oral Center ATORVASTATIN completed Sa int 20 MG Con TABLETDirectio Medic al ns: oral Center METHADONE 40 completed Sa int MG SOLUBLE Con TABLETDirectio Medic al ns: oral Center Varenicline 1 completed EVERY Tartrate DAY [place] (Chantix) 1 Hospital Each Tab.ds.pk - Tab.ds.pk, 1 Jarratt h Tab Oral methodone completed [facility] atorvastatin ATORVASTATIN TABLET [address] [facility] 20 MG Oral CALCIUM BEDTIME Cor nwall Tablet (LIPITOR) 20 DAILY Hosp ital [Lipitor] MG TABLET - ATORVASTATIN Jarratt h CALCIUM (LIPITOR) 20 MG TABLET Methadone methadone 40 1.00 ORA completed ta ke 1 NEXTGEN Hydrochloride mg soluble {tbl} L tabl et ([facility] 0.333 MG/ML tablet by oral Harsha lott Oral route Medical Suspension every Center) methadone 40 day mg soluble dissolv tablet ed in at least 6 ounces of cool water or juice Chlorthalidone chlorthalidone 1.00 ORA completed take 1 NEXTGEN 25 MG Oral 25 mg tablet {tbl} L table t (Saint Tablet by oral Con chlorthalidone route Medi estrella 25 mg tablet every Center ) day Naproxen naproxen 1 completed Sa int sodium 275 MG sodium 275 mg Con Oral Tablet Tablet, Medic al naproxen Ordered By: Cent er sodium 275 mg Amadou Tablet, Bud, Ordered By: MDDirections: Amadou 1 tablet oral Faakbarrich, three times a MDDirections: day PRN pain 1 tablet oral three times a day PRN pain Amoxicillin amoxicillin-po 1 completed [facility] 875 MG / t clavulanate Sandra horn Clavulanate 875 mg-125 mg Medical 125 MG Oral Tablet, Cente r Tablet Ordered By: amoxicillin-po Amadou soriano clavulanate Bud, 875 mg-125 mg MDDirections: Tablet, 1 tablet oral Ordered By: every twelve Amadou hours with or Fahnrich, after food MDDirections: 1 tablet oral every twelve hours with or after food atorvastatin atorvastatin 1 completed [facility] 20 MG Oral 20 mg Tablet, Con Tablet Ordered By: Medica l atorvastatin Shelly Cente r 20 mg Tablet, Gerald, Ordered By: MDDirections: Shelly 1 tablet oral Gerald, daily at MDDirections: bedtime 1 tablet oral daily at bedtime multivit with 1 completed Theral o [facility] min-folic acid gix [facility] (Theralogix Compani Medic al Fur Coat Sewer) 0.4 on Cente r mg Tablet, Ordered By: Shelly Duarte, MDDirections: 1 tablet oral daily Amoxicillin Amoxicillin/Po TABLET 1 completed EVERY 875 MG / tassium Clav 12 Cor nwall Clavulanate (Amox-Clav HOURS H ospital 125 MG Oral 875-125 Mg - Tablet Tablet) 1 Each Amoxicillin/Po Tablet Tablet, tassium Clav 1 Tablet Oral (Amox-Clav 875-125 Mg Tablet) 1 Each Tablet Tablet, 1 Tablet Oral Ibuprofen 600 ibuprofen 600 1 completed [facility] MG Oral Tablet mg Tablet, Con ibuprofen 600 Ordered By: Medical mg Tablet, Shelly [place] Ordered By: Shelly Duarte MDDirections: Gerald, 1 tablet oral MDDirections: every six 1 tablet oral hours PRN PAIN every six hours PRN PAIN Chlorthalidone chlorthalidone 1 completed [facility] 25 MG Oral 25 mg Tablet, Con Tablet Ordered By: Yadi berry chlorthalidone Shelly [address] ter 25 mg Tablet, Gerald, Ordered By: MDDirections: Shelly 1 tablet oral Gerald, daily MDDirections: 1 tablet oral daily pantoprazole pantoprazole 1 completed [facility] 40 MG Delayed 40 mg [facility] Release Oral tablet,delayed Medical Tablet release [place] pantoprazole (DR/EC), 40 mg Ordered By: tablet,delayed Shelly release Gerald, (DR/EC), MDDirections: Ordered By: 1 tablet oral Shelly daily before Gerald, breakfast MDDirections: 1 tablet oral daily before breakfast Thiamine 100 thiamine HCl 1 completed [facility] MG Oral Tablet (vitamin B1) Con thiamine HCl 100 mg Tablet, Medical (vitamin B1) Ordered By: Elder 100 mg TabletShelly Ordered By: Shelly Duarte MDDirections: Gerald, 1 tablet oral MDDirections: daily 1 tablet oral daily Chlorthalidone CHLORTHALIDONE TABLET 25 completed EVERY 25 MG Oral (HYGROTON) 25 DAY [place] Tablet MG TABLET [facility] CHLORTHALIDONE - (HYGROTON) 25 [place] MG TABLET Amoxicillin amoxicillin-po 1 completed Augment [facility] 875 MG / t clavulanate in Sandra sephs Clavulanate (Augmentin) M edical 125 MG Oral 875 mg-125 mg Center Tablet Tablet, [Augmentin] Ordered By: amoxicillin-po Thalia Green, t clavulanate PADirections: (Augmentin) 1 tablet oral 875 mg-125 mg every twelve Tablet, hours with or Ordered By: after food Thalia Dwyer PADirections: 1 tablet oral every twelve hours with or after food Insurance Providers Payer name Policy type Policy ID Covered Covered constitution party's Policy P luz maria / Coverage constitution party ID relationship to [employer] ormation type [place] MEDICARE [id number] AARP O [id number] M [id number] 01 [id number] [facility]-AARP O [id number] O [id number] AETNA O [id number] AETNA USHC [id number] SP [id number] TERRELL MEDICARE AETNA USHC [id number] SP [id number] PPO AETNA USHC SP PPO MAKI MEDICARE [id number] SP [id number] AETNA [id number] SP [id number] MEDICARE O [id number] SEIU O [id number] M [id number] [id number] M [id number] T45 MDM AETNA [id number] Self [id number] HEALTH PLAN SELF PAY [id number] Self [id number] LOCAL [id number] Self [id number] BENEFIT FUND MEDICARE B [id number] Self [id number] MEDICARE A [id number] Self [id number] O [id number] LOCAL [id number] O [id number] 01 [id number] LOCAL [id number] - [id number] SP [id number] [facility] Problems, Conditions, and Diagnoses Code Display Name Description Problem Type Effective Data Dates Source(s) 88036323 Hyperlipidemia Hyperlipidemia Problem NEXTGE N ([facility]) [id number] Benign Benign Problem NEXTGEN hypertension hypertension ([facility]) [id number] Foreign body Foreign body Problem NEXTGEN ([facility]) Z13.9 Encounter for ENCOUNTER FOR Diagnosis 10/17/2019 [facility] Sandra horn screening, SCREENING, 02:40:00 PM Medical unspecified UNSPECIFIED EDT Center Z71.9 Counseling, COUNSELING, Diagnosis 09/06/2019 [facility] Antonio dubon unspecified UNSPECIFIED 10:14:00 AM Medical EDT Center Z71.6 Tobacco abuse TOBACCO ABUSE Diagnosis 09/06/2019 [facility] Sandra horn counseling COUNSELING 10:14:00 AM [facility] EDT Center E78.5 Hyperlipidemia, HYPERLIPIDEMIA, Diagnosis 09/06/2019 Allison Andujar unspecified UNSPECIFIED 10:14:00 AM [facility] EDT Center Z68.26 Body mass index BODY MASS INDEX Diagnosis 06/20/2019 [facility] audi (BMI) 26.0-26.9, (BMI) 26.0-26.9, 09:42:00 PM C ornwall adult ADULT [facility] E66.3 Overweight OVERWEIGHT Diagnosis 06/20/2019 [facility] 09:42:00 PM [facility] R19.7 Diarrhea, DIARRHEA, Diagnosis 06/20/2019 [facility] unspecified UNSPECIFIED 09:42:00 PM [facility] R25.1 Tremor, TREMOR, Diagnosis 06/20/2019 [facility] unspecified UNSPECIFIED 09:42:00 PM [facility] R74.0 Nonspecific NONSPEC ELEV OF Diagnosis 06/20/2019 [facility] elevation of LEVELS OF 09:42:00 PM [place] levels of TRANSAMNS LACTIC [facility] Hospit al - transaminase and ACID [place] lactic acid dehydrogenase [LDH] Y90.7 Blood alcohol BLOOD ALCOHOL Diagnosis 06/20/2019 [facility] level of 200-239 LEVEL OF 200-239 09:42:00 PM C ornwall mg/100 ml MG/100 ML [facility] D69.6 Thrombocytopenia, THROMBOCYTOPENIA, Diagnosis 06/20/2019 [facility] unspecified UNSPECIFIED 09:42:00 PM [facility] R00.0 Tachycardia, TACHYCARDIA, Diagnosis 06/20/2019 [facility] unspecified UNSPECIFIED 09:42:00 PM [facility] F11.20 Opioid dependence, OPIOID DEPENDENCE, Diagnosis [facility] uncomplicated UNCOMPLICATED 09:42:00 PM [facility] F10.239 Alcohol dependence ALCOHOL DEPENDENCE Diagnosis [facility] with withdrawal, WITH WITHDRAWAL, 09:42:00 PM C orn[place] unspecified UNSPECIFIED [facility] F10.231 Alcohol dependence ALCOHOL DEPENDENCE Diagnosis [facility] with withdrawal WITH WITHDRAWAL 09:42:00 PM Cor nwall delirium DELIR [facility] F10.20 Alcohol ALCOHOL Diagnosis 06/20/2019 [facility] dependence, DEPENDENCE, 09:42:00 PM [place] uncomplicated UNCOMPLICATED [facility] F11.10 Opioid abuse, OPIOID ABUSE, Diagnosis 06/20/2019 [facility] uncomplicated UNCOMPLICATED 09:42:00 PM Cornwal l [facility] Y99.9 Unspecified UNSPECIFIED Diagnosis 04/20/2019 [facility] Alvarez s external cause EXTERNAL CAUSE 01:31:00 PM Medic al status STATUS EST Center Y92.[address] Diagnosis 04/20/2019 [facility] Andujar or not applicable OR NOT APPLICABLE 01:31:00 PM Medical EST Center Y93.9 Activity, ACTIVITY, Diagnosis 04/20/2019 [facility] unspecified UNSPECIFIED 01:31:00 PM Medical EST Center W01.0XXA Fall on same level FALL SAME LEV FROM Diagnosis 0 [facility] Andujar from slipping, SLIP/TRIP W/O 01:31:00 PM Medica l tripping and STRIKE AGAINST EST Center stumbling without OBJECT, INIT subsequent striking against object, initial encounter S00.81XA Abrasion of other ABRASION OF OTHER Diagnosis 04/20/2019 [facility] part of head, PART OF HEAD, 01:31:00 PM Medical initial encounter INITIAL ENCOUNTER EST Center S02.2XXA Fracture of nasal FRACTURE OF NASAL Diagnosis 04/20/2019 [facility] An[facility] bones, initial BONES, INIT ENCNTR 01:31:00 PM M edical encounter for FOR CLOSED EST Center closed fracture FRACTURE F17.210 Nicotine NICOTINE Diagnosis 02/24/2019 [facility] dependence, DEPENDENCE, 01:47:00 PM Medical cigarettes, CIGARETTES, EST Center uncomplicated UNCOMPLICATED I10 Essential ESSENTIAL Diagnosis 02/24/2019 [facility] An[facility] (primary) (PRIMARY) 01:47:00 PM Medical hypertension HYPERTENSION EST Center F10.10 Alcohol abuse, ALCOHOL ABUSE, Diagnosis 02/24/2019 [facility]jar uncomplicated UNCOMPLICATED 01:47:00 PM Medical EST Center Z04.89 ENCOUNTER FOR ENCOUNTER FOR Diagnosis 02/24/2019 [facility] Sandra bandas EXAMINATION AND EXAMINATION AND 01:47:00 PM Med ical OBSERVATION FOR OBSERVATION FOR EST Cent er OTH REASONS OTH REASONS F10.20 Alcohol Alcohol Diagnosis 01/29/2019 [facility] dependence, dependence, 01:37:00 PM [facility] uncomplicated uncomplicated [facility] Y90.8 Blood alcohol BLOOD ALCOHOL Diagnosis 01/11/2019 [facility] Sandra horn level of 240 LEVEL OF 240 12:18:00 PM Medical mg/100 ml or more MG/100 ML OR MORE EST Center F11.20 Opioid dependence, OPIOID DEPENDENCE, Diagnosis 9 [facility]jar uncomplicated UNCOMPLICATED 12:18:00 PM Medical EST Center F10.239 Alcohol dependence ALCOHOL DEPENDENCE Diagnosis 9 [facility] with withdrawal, WITH WITHDRAWAL, 12:25:00 PM M edical unspecified UNSPECIFIED EST Center F10.229 Alcohol dependence ALCOHOL DEPENDENCE Diagnosis 9 [facility] with intoxication, WITH INTOXICATION, 01:40:00 PM Medical unspecified UNSPECIFIED EDT Center K85.20 Alcohol induced ALCOHOL INDUCED Diagnosis 01/04/2019 Allison soriano Con acute pancreatitis ACUTE PANCREATITIS 01:40:00 PM Medical without necrosis WITHOUT NECROSIS EDT Ce nter or infection OR INFCT Z86.711 Personal history PERSONAL HISTORY Diagnosis 01/04/2019 Sa muñoz [facility] of pulmonary OF PULMONARY 01:40:00 PM Medical embolism EMBOLISM EDT Center R07.9 Chest pain, CHEST PAIN, Diagnosis 12/29/2018 [facility] Antonio dubon unspecified UNSPECIFIED 03:15:00 PM Medical EDT Center F19.10 Other psychoactive OTHER PSYCHOACTIVE Diagnosis 9 [facility] substance abuse, SUBSTANCE ABUSE, 01:44:00 PM edical uncomplicated UNCOMPLICATED EDT Center F10.129 Alcohol abuse with ALCOHOL ABUSE WITH Diagnosis 9 [facility] intoxication, INTOXICATION, 01:44:00 PM Medical unspecified UNSPECIFIED EDT Center R42 Dizziness and DIZZINESS AND Diagnosis 09/12/2018 [facility] Sandra horn giddiness GIDDINESS 01:44:00 PM Medical EDT Center Z72.0 Tobacco use TOBACCO USE Diagnosis 09/03/2018 [facility] Alvarez s 11:24:00 AM Medical EDT Center R07.89 Other chest pain OTHER CHEST PAIN Diagnosis 09/03/2018 Sa int Con 11:24:00 AM Medical EDT Center Diagnosis NEXTGEN ([facility]) Diagnosis NEXTGEN ([facility]) Surgeries/Procedures Procedure Description Date Indications Data Source(s) OFFICE/OUTPATIENT VISIT, 10/17/2019 NEX TGEN ([facility] 12:00:00 AM EDT [facility] estrella - 10/17/2019 Center) 12:00:00 AM EDT OFFICE/OUTPATIENT VISIT, 09/06/2019 NEX TGEN ([facility] EST 12:00:00 AM EDT [facility] - 09/06/2019 [place]) 12:00:00 AM EDT ROUTINE VENIPUNCTURE 09/06/2019 NEXTGEN ([facility] 12:00:00 AM EDT [facility] - 09/06/2019 [place]) 12:00:00 AM EDT OFFICE/OUTPATIENT VISIT, 03/31/2018 NEX TGEN ([facility] EST 12:00:00 AM EST [facility] - 03/31/2018 [place]) 12:00:00 AM EST OFFICE/OUTPATIENT VISIT, 03/21/2018 NEX TGEN ([facility] NEW 12:00:00 AM EST [facility] - 03/21/2018 [place]) 12:00:00 AM EST Results ID Date Data Source Liver 09/06/2019 12:00:00 PM EDT [facility] Profile.[id number] Name Value Range Interpretation Description Data Sup porting Code Source(s) Document(s ) Aspartate 17-59 <content [facility] aminotransferase styleCode="Bold"> Clint hs [Enzymatic Aspartate Medical activity/volume] Aminotransferase Center in Serum or Plasma (AST) </content>28 IU/L<content styleCode="Italic s"> (17-59 IU/L)</content> Alanine 7-50 <content [facility] aminotransferase styleCode="Bold"> [place] hs [Enzymatic Alanine Medical activity/volume] Aminotransferase Center in Serum or Plasma (ALT) </content>16 IU/L<content styleCode="Italic s"> (7-50 IU/L)</content> Bilirubin.total 0.2-1.3 <content [facility] [Mass/volume] in styleCode="Bold"> Clint hs Serum or Plasma Bilirubin Total Medical </content>0.8 Center MG/DL<content styleCode="Italic s"> (0.2-1.3 MG/DL)</content> Alkaline 38-126 <content [facility] phosphatase styleCode="Bold"> Con [Enzymatic Alkaline Medical activity/volume] Phosphatase (ALP) Cente r in Serum or Plasma </content>83 IU/L<content styleCode="Italic s"> (38-126 IU/L)</content> Albumin 3.5-5.0 <content [facility] [Mass/volume] in styleCode="Bold"> Clint hs Serum or Plasma Albumin Medical </content>4.1 Center G/DL<content styleCode="Italic s"> (3.5-5.0 G/DL)</content> ID Date Data Source LIPID.[id number] 09/06/2019 12:00:[address] [facility] Name Value Range Interpretation Description Data Sup porting Code Source(s) Document(s ) Triglyceride < 150 Above high normal <content [facility] [Mass/volume] in styleCode="Reuben Con Serum or Plasma d">Triglycerid [facility] </content>209 MG/DL H<content styleCode="Katie lics"> (< 150 MG/DL)</conten t> Cholesterol -<200 Above high normal <content [facility] [Mass/volume] in styleCode="Reuben Con Serum or Plasma d">Cholesterol Medical </content>262 Center MG/DL H<content styleCode="Katie lics"> (-<200 MG/DL)</conten t> UNK > 60 <content Saint styleCode="Reuben Con d">HDL- Medical Cholesterol Center </content>73 MG/DL<content styleCode="Katie lics"> (> 60 MG/DL)</conten t> UNK < 100 Above high normal <content Saint styleCode="Reuben Con d">LDL-Cholest [facility] naa [place] </content>147 MG/DL H<content styleCode="Katie lics"> (< 100 MG/DL)</conten t> ID Date Data Source HematologyRou.[id number] 09/06/2019 12:00:00 PM EDT [facility] 0400 Name Value Range Interpretation Description Data Sup porting Code Source(s) Document(s ) Leukocytes 4.4-11.0 <content [facility] [#/volume] in styleCode="Bold [facility] Blood by ">White Blood Medical Automated count Cell Count Center </content>6.99 KCUMM<content styleCode="Ital ics"> (4.4-11.0 KCUMM)</content > Erythrocytes 4.4-5.9 Below low normal <content [facility] [#/volume] in styleCode="Bold Con Blood by ">Red Blood Medical Automated count Cell Count Center </content>4.07 MCUMM L<content styleCode="Ital ics"> (4.4-5.9 MCUMM)</content > Erythrocyte mean 80.0-100 <content [facility] corpuscular .0 styleCode="Bold Con volume [Entitic ">Mean Medical volume] by Corpuscular Center Automated count Volume </content>96.6 FL<content styleCode="Ital ics"> (80.0-100.0 FL)</content> Erythrocyte mean 26.0-34. <content [facility] corpuscular 0 styleCode="Bold Con hemoglobin ">Mean Medical [Entitic mass] Corposcular Center by Automated Hemoglobin count </content>31.4 PG<content styleCode="Ital ics"> (26.0-34.0 PG)</content> Hematocrit 41.0-53. Below low normal <content [facility] [Volume 0 styleCode="Bold Con Fraction] of ">Hematocrit Medical Blood by </content>39.3 Center Automated count % L<content styleCode="Ital ics"> (41.0-53.0 %)</content> Hemoglobin 13.5-17. Below low normal <content [facility] [Mass/volume] in 5 styleCode="Bold Con Blood ">Hemoglobin Medical </content>12.8 Center G/DL L<content styleCode="Ital ics"> (13.5-17.5 G/DL)</content> Erythrocyte mean 32.0-37. <content [facility] corpuscular 0 styleCode="Bold Con hemoglobin ">Mean Corpus. Medical concentration Hgb Center [Mass/volume] by Concentration Automated count (MCHC) </content>32.6 G/DL<content styleCode="Ital ics"> (32.0-37.0 G/DL)</content> Erythrocyte 11.5-14. Above high <content [facility] distribution 5 normal styleCode="Bold Con width [Ratio] by ">Red Cell Medical Automated count Distribution Center Width </content>14.9 % H<content styleCode="Ital ics"> (11.5-14.5 %)</content> Platelets 130-400 <content Saint [#/volume] in styleCode="Bold Con Blood by ">Platelet Medical Automated count Count Center </content>387 KCUMM<content styleCode="Ital ics"> (130-400 KCUMM)</content > Platelet mean 8.0-11.0 <content [facility] volume [Entitic styleCode="Bold Con volume] in Blood ">Mean Platelet Medical by Automated Volume Center count </content>10.1 FL<content styleCode="Ital ics"> (8.0-11.0 FL)</content> Neutrophils 36-66 <content Saint [#/volume] in styleCode="Bold Con Blood by ">Neutrophil Medical Automated count </content>62.4 Center %<content styleCode="Ital ics"> (36-66 %)</content> Lymphocytes 24.0-44. <content Saint [#/volume] in 0 styleCode="Bold Con Blood by ">Lymphocyte Medical Automated count </content>26.2 Center %<content styleCode="Ital ics"> (24.0-44.0 %)</content> UNK 1.0-4.8 <content Saint styleCode="Bold Con ">Lymphocyte Medical Count Center </content>1.83 KCUMM<content styleCode="Ital ics"> (1.0-4.8 KCUMM)</content > Monocytes 3.0-10.0 <content [facility] [#/volume] in styleCode="Bold Con Blood by ">Monocyte Medical Automated count </content>8.0 Center %<content styleCode="Ital ics"> (3.0-10.0 %)</content> UNK 1.6-7.3 <content Saint styleCode="Bold Con ">Neutrophil Medical Count Center </content>4.36 KCUMM<content styleCode="Ital ics"> (1.6-7.3 KCUMM)</content > UNK 0.2-0.9 <content Saint styleCode="Bold Cno ">Monocyte Medical Count Center </content>0.56 KCUMM<content styleCode="Ital ics"> (0.2-0.9 KCUMM)</content > Eosinophils 0-5.0 <content [facility] [#/volume] in styleCode="Bold Con Blood by ">Eosinophil Medical Automated count </content>2.4 Center %<content styleCode="Ital ics"> (0-5.0 %)</content> UNK 0.0-0.6 <content Saint styleCode="Bold Con ">Eosinophil Medical Count Center </content>0.17 KCUMM<content styleCode="Ital ics"> (0.0-0.6 KCUMM)</content > Basophils 0.0-1.0 <content [facility] [#/volume] in styleCode="Bold Con Blood by ">Basophil Medical Automated count </content>0.9 Center %<content styleCode="Ital ics"> (0.0-1.0 %)</content> UNK 0.0 <content Saint styleCode="Bold Con ">Nucleated Red Medical Blood Cell Center Count </content>0.00 KCUMM<content styleCode="Ital ics"> (0.0 KCUMM)</content > UNK 0.0-0.3 <content Saint styleCode="Bold Con ">Basophil Medical Count Center </content>0.06 KCUMM<content styleCode="Ital ics"> (0.0-0.3 KCUMM)</content > UNK 0 <content Saint styleCode="Bold Con ">Nucleated Red Medical Blood Cell Center </content>0.0 /100<content styleCode="Ital ics"> (0 /100)</content> UNK 0-0.1 <content Saint styleCode="Bold Con ">Immature Medical Granulocyte Center Count </content>0.01 KCUMM<content styleCode="Ital ics"> (0-0.1 KCUMM)</content > UNK < 1 <content Saint styleCode="Bold Con ">Immature Medical Granulocyte Center Ratio </content>0.1 %<content styleCode="Ital ics"> (< 1 %)</content> ID Date Data Source GFR(Creatinine).[id number] 09/06/2019 12:00:00 PM EDT [facility] 0-0400 Name Value Range Interpretation Code Description Data Yue rce(s) Supporting Document(s ) UNK > 60 <content [facility] styleCode="Bold"> Medical Cent er EGFR </content>120 GFR<content styleCode="Italic s"> (> 60 GFR)</content> ID Date Data Source CHMROUTINECCDA.[id number] 09/06/2019 12:00:00 PM EDT [facility] -0400 Name Value Range Interpretation Description Data Sup porting Code Source(s) Document(s ) UNK >= 1.0 <content [facility] styleCode="Bold Medical ">AG Ratio Center </content>1.1 <content styleCode="Ital ics"> (>= 1.0 )</content> UNK 4.2-5.8 <content [facility] styleCode="Bold Medical ">Hemoglobin Center A1C </content>5.3 %<content styleCode="Ital ics"> (4.2-5.8 %)</content> UNK 2.3-3.5 Above high normal <content [place] s styleCode="Bold Medical ">Globulin Center </content>3.6 G/DL H<content styleCode="Ital ics"> (2.3-3.5 G/DL)</content> Protein 6.3-8.2 <content [facility] [Mass/volum styleCode="Bold Medical e] in Serum ">Total Protein Center or Plasma </content>7.7 G/DL<content styleCode="Ital ics"> (6.3-8.2 G/DL)</content> ID Date Data Source [id number] 09/06/2019 12:00:00 PM EDT [facility] Name Value Range Interpretation Description Data Sup porting Code Source(s) Document(s ) Potassium 3.5-5.3 <content [facility] [Moles/volume] in styleCode="Bold"> Flex phs Serum or Plasma Potassium Medical </content>4.2 Center MEQ/L<content styleCode="Italic s"> (3.5-5.3 MEQ/L)</content> Sodium 137-145 Below low <content [facility] [Moles/volume] in normal styleCode="Bold"> Flex phs Serum or Plasma Sodium Medical </content>136 Center MEQ/L L<content styleCode="Italic s"> (137-145 MEQ/L)</content> Chloride 98-107 <content [facility] [Moles/volume] in styleCode="Bold"> Flex phs Serum or Plasma Chloride Medical </content>102 Center MEQ/L<content styleCode="Italic s"> (98-107 MEQ/L)</content> Creatinine 0.5-1.3 <content [facility] [Mass/volume] in styleCode="Bold"> Clint hs Serum or Plasma Creatinine Medical </content>0.7 Center MG/DL<content styleCode="Italic s"> (0.5-1.3 MG/DL)</content> UNK 9-20 <content Saint styleCode="Bold"> Con BUN </content>11 Medical MG/DL<content Center styleCode="Italic s"> (9-20 MG/DL)</content> Carbon dioxide, 22-30 <content Saint total styleCode="Bold"> Con [Moles/volume] in Carbon Dioxide Medical Serum or Plasma </content>27 Center MEQ/L<content styleCode="Italic s"> (22-30 MEQ/L)</content> Calcium 8.4-10. Above high <content [facility] [Mass/volume] in 2 normal styleCode="Bold"> Clint hs Serum or Plasma Calcium Medical </content>10.4 Center MG/DL H<content styleCode="Italic s"> (8.4-10.2 MG/DL)</content> UNK > 60 <content Saint styleCode="Bold"> Con EGFR Medical </content>120 Center GFR<content styleCode="Italic s"> (> 60 GFR)</content> Glucose 74-106 <content [facility] [Mass/volume] in styleCode="Bold"> Clint hs Serum or Plasma Glucose Medical </content>102 Center MG/DL<content styleCode="Italic s"> (74-106 MG/DL)</content> Alkaline 38-126 <content [facility] phosphatase styleCode="Bold"> Con [Enzymatic Alkaline Medical activity/volume] Phosphatase (ALP) Cente r in Serum or Plasma </content>83 IU/L<content styleCode="Italic s"> (38-126 IU/L)</content> Aspartate 17-59 <content [facility] aminotransferase styleCode="Bold"> Clint hs [Enzymatic Aspartate Medical activity/volume] Aminotransferase Center in Serum or Plasma (AST) </content>28 IU/L<content styleCode="Italic s"> (17-59 IU/L)</content> Alanine 7-50 <content [facility] aminotransferase styleCode="Bold"> Clint hs [Enzymatic Alanine Medical activity/volume] Aminotransferase Center in Serum or Plasma (ALT) </content>16 IU/L<content styleCode="Italic s"> (7-50 IU/L)</content> Bilirubin.total 0.2-1.3 <content [facility] [Mass/volume] in styleCode="Bold"> Clint hs Serum or Plasma Bilirubin Total Medical </content>0.8 Center MG/DL<content styleCode="Italic s"> (0.2-1.3 MG/DL)</content> Albumin 3.5-5.0 <content [facility] [Mass/volume] in styleCode="Bold"> Clint hs Serum or Plasma Albumin Medical </content>4.1 Center G/DL<content styleCode="Italic s"> (3.5-5.0 G/DL)</content> ID Date Data Source [id number] 08/20/2019 12:00:00 AM EDT [facility] Name Value Range Interpretation Code Description Data Yue rce(s) Supporting Document(s ) [facility] MIRTA+probe- Imp This lab was ordered by BAL and reported by [employer]. ID Date Data Source [id number] 07/04/2019 02:59:00 PM [facility] TTIA PULIDO JR STATUS: DIS INACCOUNT #: [id number] ADM UNIT #: [id number] ROOM/BED: [facility]01SEX: M ATTEND: KRISTI CASTORENA MDRADOB: [birth year] AGE: 69 AUTHOR: TOM CASTORENA MD PCP: NO DOCTOR Service Date/Time: 07/04/19 1455 Discharge Summ graeme.Date of Admission: 06/20/19Date of Discharge: 06/27 Disposition: [inpatient rehab]Course of Hospitalization: [69-year-old alcoholic sent in from [facility] due to alcohol intoxication/withdrawal. He is visiting family from [place]. [facility] was concerned due to his alcohol dependence. Patient reports that he has had about 30-40 drinks over the course of 24 hours. He is tremulous, tachycardic wit h elevated LFTs. No fevers, chills, chest pain, shortness of breath. Admit for al cohol withdrawal. Alcohol level is 235.] pt was admitted and started on alcohol with drawl protocol,remianed stable. chest x-ray shows no infiltrate.due to his history o f IV drug use,he was started on methadone 30 mg physical therapy recommends rehab,and he was discharged.had a detailed discussion with sister in detail. Physical Exam Phy sical ExamConstitutional alert, awake, no acute distressEyes Eye Exam bilatera l eye anicteric, bilateral eye lids normalEENT Nose no active bleedingCard iovascular regular rhythm, tachycardicRespiratory breath sounds equ al bilat, no respiratory distressGI Abdomen soft, non-tenderMusculoskeletal Chest no tenderness to palp Extremities non-tenderSkin/Integumentary color nurys l, warmNeuro appropriate for age, no gross sensory deficit, speech normalPsych norm al affect, normal mood Problem, Assessment PlanPROBLEM, ASSESSMENT PLAN: 1. Alcoh ol withdrawal ICD Code F10.239 - Alcohol dependence with withdrawal, unspecified Qualifiers Complication of substance-induced condition: with unspec ified complication Qualified Code: F10.239 - Alcohol dependence with withdrawal, unsp ecified Assess Plan:On [place] 12:37p Jun 28, 2019 TOM CASTORENA wrote69-year-old male admitted with: -acute alcohol intoxication: Currently doing well, the re is no evidence of alcohol withdrawal, last time Ativan was given last evening aroun d 9 o'clock.. Currently patient is in no acute distress, continue thiamine, folat e, Valium p.r.n. for withdrawal, CIWA protocol, chest x-ray shows no infiltrat e -history of IV drug use, is currently on methadone 30 mg daily. Stable -physical therapy recommends rehab, case management working on places that accept patients w ith methadone. Patient and sister agreeable with the plan. Patient is medically sta ble for discharge -out of bed to chair, physical therapy 2. Methadone depend ence ICD Code F11.20 - Opioid dependence, uncomplicated Core Measures Stroke/RUTH ew Onset STK/TIA? No Billing Inpatient CodesDischarge 10542 Electronically Sign ed by TOM CASTORENA MD on 07/04/19 at 1458 TOM CASTORENA MD Electronic ally Signed 07/04/19 1458 Providers:TOM CASTORENA MD Report Entered Date/Time: 07/04/19 1455Current Report Status: Signed Report #: [id number] PCP ID: NONE ATTENDING ID: DAVE AUTHOR ID: DAVE Name Value Range Interpretation Code Description Data Yue rce(s) Supporting Document(s ) ID Date Data Source [id number] 06/28/2019 12:37:00 PM EDT [facility] PAT[facility]: TITA PULIDO JR STATUS: ADM INACCOUNT #: [id number] ADM UNIT #: [id number] ROOM/BE D: [id number]: M ATTEND: [place] CASTORENA MDOB: [birth year] AGE: 69 AUTHOR: TOM CASTORENA MD PCP: NO DOCTOR Service Date/Time: 06/28/19 1127 Subjective.Pat ient seen and examined at bedside, no acute distress, doing well, no evidence of acu te alcohol withdrawal. Says he feels better, enquiring if he can get a caneto ambulat e Objective.Height: ft: 5 in: 9 cm: 175.3 Weight: lbs: 178 k.739 BMI: 26.273BMI Classificati on: Overweight Date: 06/25/19 Time: 1333Vital Signs Result Date Time Pulse Ox 97 06/27 1000 O2 Delivery Room Air 06/27 1000 B/P 110/79 06/27 0600 Temp 98.7 06/27 0600 Pulse 100 06/27 0600 Resp 16 06/27 0600 O2 Flow Rate 2 06/23 0742 Current Medications Sig/Alan Start time Last Medication Dose Stop Time Status Admin Thiamine HCl 100 MG DAILY 06/27 1200 AC 06/27 07/01 0901 1116 Methad one HCl 30 MG QDAILY 06/24 0900 AC 06/27 0941 Erythromycin See Dose Q6H 06/23 1800 AC 06/27 Insts (1) 1205 Artificial Tears See Dose Q6H 06/23 1400 AC 06/27 Insts (2) 1204 Diazepam 20 MG Q2H PRN 06/20 1200 CKD 06/21 1106 Diazepam 10 M G Q2H PRN 06/20 1200 CKD 06/26 0247 Folic Acid 1 MG DAILY 06/20 0900 AC 06/27 0941 Multivitamins 1 TABLET DAILY 06/20 0900 AC 06/27 Therap eutic 0941 Lorazepam 1 MG Q2H PRN 06/19 2200 CKD 06/26 2053 Dose Instructions:(1)Erythromycin: TO RIGHT EYE(2)Artificial Tears: 2 DROPS TO EYES Physical Exam Physical ExamCon stitutional alert, awake, no acute distressEyes Eye Exam bilateral eye anicteric, bilateral eye lids normalEENT Nose no active bleedingCardiovascular re gular rhythm, tachycardicRespiratory breath sounds equal bilat, no respiratory distr essGI Abdomen soft, non-tenderMusculoskeletal Chest no ten derness to palp Extremities non-tenderSkin/Integumentary color nurys l, warmNeuro appropriate for age, no gross sensory deficit, speech normalPsych norm al affect, normal mood Problem, Assessment PlanPROBLEM, ASSESSMENT PLAN: 1. Alcoh ol withdrawal ICD Code F10.239 - Alcohol dependence with withdrawal, unspecified Qualifiers Complication of substance-induced condition: with unspec ified complication Qualified Code: F10.239 - Alcohol dependence with withdrawal, unsp ecified Assess Plan:69-year-old male admitted with: -acute alcohol intoxicati on: Currently doing well, there is no evidence of alcohol withdrawal, last alan e Ativan was given last evening around 9 o'clock.. Currently patient is in no ac [place] distress, continue thiamine, folate, Valium p.r.n. for withdrawal, CIWA ranjith col, chest x-ray shows no infiltrate -history of IV drug use, is currently on methadon e 30 mg daily. Stable -physical therapy recommends rehab, case management workin g on places that accept patients with methadone. Patient and sister agreeable with the plan. Patient is medically stable for discharge -out of bed to chair, phys ical therapy 2. Methadone dependence ICD Code F11.20 - Opioid dependence, unc omplicated Reason Cont. Hospitalization:Placement Billing [facility] [place] ent CodesFollow-up [id number] at 1237 TOM CASTORENA MD Electronically Signed 06/28/19 123 7 Providers:TOM CASTORENA MD Report Entered Date/Time: 06/28/19 1127Current Report S tatus: Signed Report #: [id number] PCP ID: NONE [facility] ID: DAVE Name Value Range Interpretation Code Description Data Yue rce(s) Supporting Document(s ) ID Date Data Source [id number] 06/28/2019 08:51:00 AM EDT [facility] Name Value Range Interpretation Description Data Sup porting Code Source(s) Document(s ) GLUCOSE 100 74-106 [facility] mg/dL [facility] BUN 14 mg/dL 7-18 [facility] CREATININE 0.668 0.700-1. Below low normal [facility] mg/dL 300 [facility] EST.GLOMERULAR 118.58 >=60.0 [facility] FILTRATION mL/min [facility] EST.GFR 143.48 >=60.0 [facility] mL/min [facility] PHARMACY 71.68 >=60.00 [facility] COCKCROFT-DARA mL[facility] [place] [facility] BUN/CREAT 20.9 6.0-20.[address] [facility] RATIO [facility] SODIUM 134 135-145 Below low normal [facility] mmol/L [facility] POTASSIUM 3.9 3.5-5.1 [facility] mmol/L [facility] CHLORIDE 104 98-107 [facility] mmol/L [facility] CO2 26 21-[facility] mmol/L [facility] ANION GAP 4.0 8-20 Below low normal [facility] mmol/L [facility] AST 62 U/L 15-37 Above high normal [facility] ALK PHOS 125 U/L 45-117 Above high normal [facility] TOTAL 0.6 0.2-1.0 [facility] BILIRUBIN mg/dL [facility] TOTAL PROTEIN 6.7 g/dL 6.4-8.2 [facility] ALBUMIN 2.8 g/dL 3.4-5.0 Below low normal [facility] GLOBULIN 3.9 g/dL 2.6-3.8 Above high normal [facility] A/G RATIO 0.7 1.0-5.0 Below low normal [facility] CALCULATION [facility] CALCIUM 8.9 8.5-10.1 [facility] mg/dL [facility] ALTI 111 U/L 16-61 Above high normal [facility] OSMOLALITY 269 273-304 Below low normal [facility] CALCULATION mos/kg [facility] ID Date Data Source [id number] 06/27/2019 04:26:00 PM EDT [facility] PATIENT: TITA PULIDO JR STATUS: ADM INACCOUNT #: [id number] ADM UNIT #: [id number] ROOM/BE D: 509-01SEX: M ATTEND: KRISTI CASTORENA MDRADOB: [birth year] AGE: 69 AUTHOR: TOM CASTORENA MD PCP: NO DOCTOR Service Date/Time: 06/27/19 1052 See AddendumSubjective.Patient seen and ex amined at bedside, no acute distress, doing well, no evidence of acute alcohol withd jacqueline Physical Exam Physical ExamConstitutional alert, awake, no acut e distressEENT Nose no active bleedingCardiovascular regular rhythm, t achycardicRespiratory breath sounds equal bilat, no respiratory distressGI Abdom en soft, non-tenderMusculoskeletal Chest no tenderness to palp Extremities non-ten derSkin/Integumentary color normal, warmNeuro appropriate for age, no gross sensory de ficit, speech normalPsych normal affect, normal mood Problem, Assessment PlanPR OBLEM, ASSESSMENT PLAN: 1. Alcohol withdrawal ICD Code F10.239 - Alcohol dependence with withdrawal, unspecified Qualifiers Complication of substance-ind uced condition: with unspecified complication Qualified Code: F10.239 - Alcohol depend ence with withdrawal, unspecified Assess Plan:69-year-old male admitted with: -ac [place] alcohol intoxication: Currently doing well, there is no evidence of alcohol wi thdrawal, last time Valium was given as this morning around 2:00 a.m.. Currently pat ient is in no acute distress, continue thiamine, folate, Valium p.r.n. for with ALIE aldrich protocol, chest x-ray shows no infiltrate -history of IV drug use, is c urrently on methadone 30 mg daily. -physical therapy recommends rehab, case managemen t working on places that accept patients with methadone. -out of bed to chair, physica l therapy 2. Methadone dependence ICD Code F11.20 - Opioid dependence, uncompl icated Reason Cont. Hospitalization:Placement Billing Inpatient CodesFollow-up [id number] E lectronically Signed by TOM CASTORENA MD on 06/27/19 at 1425 Addendum 1: 06/27/19 16 26 by TOM CASTORENA MD AddendumTextspoke to the sister Megha [phone] in detail reg POC,she wishes to speak to the for an update,Nurse made aware Electronically S igned by TOM CASTORENA MD on 06/27/19 at 1626 TOM CASTORENA MD Electronic ally Signed 06/27/19 1425 Providers:TOM CASTORENA MD Report Entered Date/Time: 06/27/19 1052Current Report Status: Signed Report #: [id number] PCP ID: NONE ATTENDING ID: SHSHA AUTHOR ID: DAVE Name Value Range Interpretation Code Description Data Yue rce(s) Supporting Document(s ) ID Date Data Source [id number] 06/26/2019 05:10:00 PM EDT [facility] PATIENT: TITA PULIDO JR STATUS: ADM INACCOUNT #: [id number] ADM UNIT #: [id number] ROOM/BE D: 509-01SEX: M ATTEND: DEBRA ALVARADO DOOB: [birth year] AGE: 69 AUTHOR: HOMER ALVARADO DO PCP: NO DOCTOR Service Date/Time: 06/26/19 1706 Subjective.Improvement in mental s tatus. More oriented. CIWA < 8 Objective.Height: ft: 5 in: 9 cm: 175.3 Weight: lbs: 178 k.739 BMI: 26.273BMI Classification: Overweight Date: Time: 1333Vital Signs Result Date Time B/P 104/68 06/25 1100 Temp 98.4 06/25 1100 Pulse 102 06/25 1100 Resp 16 06/25 1100 Pu lse Ox 96 06/25 0820 O2 Delivery Room Air 06/25 0820 O2 Flow Rate 2 06/23 0742 Physical Exam Physica l ExamConstitutional alert, awake, confusedEyes Commentright eye with cru st developingEENT Nose no active bleedingCardiovascular regular rhythm, t achycardicRespiratory breath sounds equal bilat, no respiratory distressGI Abdom en soft, non-tenderMusculoskeletal Chest no tenderness to palp Extremities non-ten derSkin/Integumentary warmNeuro appropriate for age, no gross sensory deficit, speec h normalPsych normal affect, normal mood Problem, Assessment PlanPROBLEM, ASSES SMENT PLAN: 1. Alcohol withdrawal ICD Code F10.239 - Alcohol dependence with w ithdrawal, unspecified Qualifiers Complication of substance-induced condit ion: with unspecified complication Qualified Code: F10.239 - Alcohol dependence with withdrawal, unspecified Assess Plan: 69-year-old male presented with alcohol intoxication. Admitted for alcohol withdrawal. CXR with no acute infiltrate . Initial ETOH 235. - physical deconditioning will likely require rehab placement. dis po pending placement.- thiamine, folate, multivitamin. - valium, ciwa scoring. - utox positive for methadone. per sister, the patient has IVDU history, was previously on 40 mg methadone, abruptly stopped. continue methadone 30 mg qd. - diarrhea no longer present, resolved, likely opioid withdrawal?- thrombocytopenia, likely se quela from etoh abuse. - transaminitis, improving from etoh abuse. monitor. - co ntinue current care, and regimen. 2. Methadone dependence ICD Code F11.20 - Opioid dependence, uncomplicated Reason Cont. Hospitalization:barbara placement Bill ing Inpatient CodesFollow-up [id number] at 1709 HOMER ALVARADO DO Electronically Signed 06/26/19 1 709 Providers:HOMER ALVARADO DO Report Entered Date/Time: 06/26/19 1706Current Report S tatus: Signed Report #: [id number] PCP ID: NONE ATTENDING ID: LIZA AUTHOR ID: LIZA Name Value Range Interpretation Code Description Data Yue rce(s) Supporting Document(s ) ID Date Data Source [id number] 06/25/2019 05:14:00 PM EDT [facility] PATIENT: TITA PULIDO JR STATUS: ADM INACCOUNT #: [id number] ADM UNIT #: [id number] ROOM/BE D: L.509-01SEX: M ATTEND: DEBRA ALVARADO DOOB: [birth year] AGE: 69 AUTHOR: HOMER ALVARADO DO PCP: NO DOCTOR Service Date/Time: 06/25/19 1712 Subjective.Mental status remains c onfused, not agitated. Objective.Height: ft: 5 in: 9 cm: 175.3 Weight: lbs: 178 k.739 BMI: 26.273BMI Classification: Overweight Date: 06/25/19 Time: 1333Vital Signs Result Date Time Pulse O x 95 06/24 1100 B/P 127/82 06/24 1100 Temp 98.4 06/24 1100 Pulse 105 06/24 1100 Resp 16 06/24 110 0 O2 Delivery Room Air 06/24 0800 O 2 Flow Rate 2 06/23 0742 Physical Exam Physical ExamConstitutional alert, awake, confusedEyes Commentright eye with crust developingEENT Nose no active bl eedingCardiovascular regular rhythm, tachycardicRespiratory breath sounds equ al bilat, no respiratory distressGI Abdomen soft, non-tenderMusculoskeletal Chest no tenderness to palp Extremities non-tenderSkin/Integumentary warmNeuro a ppropriate for age, no gross sensory deficit, speech normalPsych normal affect, normal mood Results.Laboratory Tests 06/24 0816 Chemistry Sodium (135 - 145 mmol/L) 138 Potassium (3.5 - 5.1 mmol/L) 4.2 Chloride (98 - 107 mmol/L) 105 BUN (7 - 18 mg/dL) 17 Creatinine (0.700 - 1.300 mg/dL) 0.654 Glucose (74 - 106 mg/dL) 102 06/24 0816 Hematology WBC (4.00 - 10.00 K/uL) 7.55 Hgb (13.7 - 17.5 g/dL) 13.8 Hct (40.1 - 51.0 %) 41.1 Plt Count (150 - 450 K/uL) 273 Pr oblem, Assessment PlanPROBLEM, ASSESSMENT PLAN: 1. Alcohol withdrawal ICD Code F 10.239 - Alcohol dependence with withdrawal, unspecified Qualifiers Complication of substance-induced condition: with unspecified complication Qualified Code: F10.239 - Alcohol dependence with withdrawal, unspecified Assess Plan: 69-year-old male presented with alcohol intoxication. Admitted for alcohol withd jacqueline. CXR with no acute infiltrate. Initial ETOH 235. - physical deconditioning will likely require rehab placement. dispo pending placement.- thiamine, folate, mu ltivitamin. - valium, ciwa scoring. - utox positive for methadone. per sister, the patient has IVDU history, was previously on 40 mg methadone, abruptly stopped. will increase to methadone 30 mg qd. - diarrhea no longer present, resolved, likely opioid withdrawal?- thrombocytopenia, likely sequela from etoh abuse. - transaminitis, improv ing from etoh abuse. monitor. - continue current care, and regimen. 2. Methado ne dependence ICD Code F11.20 - Opioid dependence, uncomplicated Reason Cont. H ospitalization:alcohol withdrawal Billing Inpatient CodesFollow-up [id number] Electroni tsering Signed by HOMER ALVARADO DO on 06/25/19 at 1713 HOMER ALVARADO DO Elec tronically Signed 06/25/19 1713 Providers:HOMER ALVARADO DO Report Entered Mane e/Time: 06/25/19 1712Current Report Status: Signed Report #: [id number] PCP ID: NONE ATTENDING ID: LIZA AUTHOR ID: LIZA Name Value Range Interpretation Code Description Data Yue rce(s) Supporting Document(s ) ID Date Data Source [id number] 06/25/2019 08:58:00 AM EDT [facility] Name Value Range Interpretation Description Data Sup porting Code Source(s) Document(s ) GLUCOSE 102 74-106 [facility] BUN 17 mg/dL 7-18 [facility] CREATININE 0.654 0.700-1. Below low normal [facility] mg/dL 300 [facility] EST.GLOMERULAR 121.[address] >=[address] [facility] FILTRATION mL/min [facility] EST.GFR 147.[address] >=60[address] [facility] mL/min [facility] PHARMACY 71.68 >=60.00 [facility] COCKCROFT-DARA mL/min [facility] BUN/CREAT 25.9 6.0-20.[address] [facility] RATIO [facility] SODIUM 138 135-[facility] mmol/L [facility] POTASSIUM 4.2 3.5-5.1 [facility] mmol/L [facility] CHLORIDE 105 98-107 [facility] mmol/L [facility] CO2 23 21-[facility] mmol/L [facility] ANION GAP 10.0 8-20 [facility] mmol/L [facility] AST 109 U/L 15-[address] [facility] ALK PHOS 157 U/L 45-117 Above high normal [facility] TOTAL 0.9 0.2-1.0 [facility] BILIRUBIN mg/dL [facility] TOTAL PROTEIN 7.6 g/dL 6.4-8.2 [facility] ALBUMIN 2.9 g/dL 3.4-5.0 Below low normal [facility] GLOBULIN 4.7 g/dL 2.6-3.8 Above high normal [facility] A/G RATIO 0.6 1.0-5.0 Below low normal [facility] CALCULATION [facility] CALCIUM 9.3 8.5-10.1 [facility] mg/dL [facility] ALTI 152 U/L 16-61 Above high normal [facility] OSMOLALITY 277 273-304 [facility] CALCULATION mos/kg [facility] ID Date Data Source [id number] 06/25/2019 08:58:00 AM EDT [facility] Name Value Range Interpretation Description Data Sup porting Code Source(s) Document(s ) PHOSPHORUS 4.5 mg/dL 2.5-4.9 [facility] ID Date Data Source [id number] 06/25/2019 08:58:00 AM EDT [facility] Name Value Range Interpretation Description Data Sup porting Code Source(s) Document(s ) MAGNESIUM 1.9 mg/dL 1.8-2.4 [facility] ID Date Data Source [id number] 06/25/2019 08:48:00 AM EDT [facility] Name Value Range Interpretation Code Description Data Yue rce(s) Supporting Document(s ) WBC 7.55 K/uL 4.00-10.00 [facility] RBC 4.38 M/uL 4.63-6.08 Below low normal [facility] HGB 13.8 g/dL 13.7-17.5 [facility] HCT 41.1 % 40.1-51.0 [facility] MCV 93.8 fL 80.0-96.0 [facility] MCH 31.5 pg 27.0-33.2 [facility] MCHC 33.6 g/dL 32.2-35.5 [facility] RDW 16.1 % 11.6-14.4 Above high normal [facility] PLT 273 K/uL 150-450 # [facility] Delta: 127 on 06/22/19-0758 MPV 10.4 fL 8.5-11.8 [facility] MARTIR% 59.0 % 38.9-69.8 [facility] LYM% 23.2 % 21.7-51.7 [facility] MONO% 13.6 % 4.7-12.2 Above high normal [facility] EOS% 2.6 % 0.8-7.0 [facility] BASO% 1.2 % 0.1-1.2 [facility] IMMATURE GRANULOCYTE% 0.4 % 0.1-0.3 Above high normal [facility] The immature granulocyte count is an enu meration ofmetamyelocytes, myelocyte, and promyelocytes present in [facility] blood sa mple. It does not include band neutrophilforms. ABSOLUTE NEUTROPHIL 4.45 K/uL 1.46-7.12 [facility] LYM# 1.75 K/uL 0.92-4.30 [facility] MONO# 1.03 K/uL 0.24-0.86 Above high normal [facility] EOSIN# 0.20 K/uL 0.04-0.54 [facility] BASO# 0.09 K/uL 0.01-0.08 Above high normal [facility] IMMATURE GRANULOCYTES# 0.03 K/uL 0.01-0.03 [facility] NRBC 0.0 /100WBC 0.0-0.2 [facility] ID Date Data Source [id number] 06/24/2019 05:02:00 PM EDT [facility] PATIENT: TITA PULIDO JR STATUS: ADM INACCOUNT #: [id number] ADM UNIT #: [id number] ROOM/BE D: 509-SEX: M ATTEND: DEBRA ALVARADO DOOB: [birth year] AGE: 69 AUTHOR: HOMER ALVARADO DO PCP: NO DOCTOR Service Date/Time: 06/24/19 1659 Subjective.Improvement in mentatio n. Participated with PT, poor, will likely require rehab. Objective.Height: ft: 5 in: 9 cm: 175.3 Weight: lbs: 178 k.739 BMI: 26.273BMI Classification: Overweight Date: 06/21/19 Time: 0244Vital Signs Result Date Time B/P 117/93 06/23 1100 Temp 97.8 06/23 1100 Pulse 113 06/23 1100 Resp 14 06/23 1100 Pulse Ox 98 06/23 0754 O2 D elivery NASAL CANNULA 06/23 0754 O2 Flow Rate 2 06/23 0742 Physical Exam Physical ExamConstitutional alert, awake, confuse dEyes Eye Exam bilateral eye lids normalEENT Head and Face no gross defo rmity Nose no active bleedingCardiovascular regular rhythm, tachycardicRespiratory b reath sounds equal bilat, no respiratory distressGI Abdomen soft, non-tenderMus culoskeletal Chest no tenderness to palp Extremities non-tenderSkin/Integumentary warmNeuro appropriate for age, no gross sensory deficit, speech normalPsych norm al affect, normal mood Results.Laboratory Tests 06/23 080 9 Chemistry Sodium (135 - 145 mmol/L) 137 Potassium (3.5 - 5.1 mmol/L) 4.1 Chloride (98 - 107 mmol/L) 104 BUN (7 - 18 mg/dL) 14 Creatinine (0.700 - 1.300 mg/dL) 0.543 Glucose (74 - 106 mg/dL) 106 Problem, Assessment P Fausto, ASSESSMENT PLAN: 1. Alcohol withdrawal ICD Code F10.239 - Alcohol dependence with withdrawal, unspecified Qualifiers Complication of substance-ind uced condition: with unspecified complication Qualified Code: F10.239 - Alcohol depend ence with withdrawal, unspecified Assess Plan: 69-year-old male presented with al cohol intoxication. Admitted for alcohol withdrawal. CXR with no acute infiltrate . Initial ETOH 235. - physical deconditioning will likely require rehab placement.- th iamine, folate, multivitamin. - valium, ciwa scoring. - utox positive for methadone. per sister, the patient has IVDU history, was previously on 40 mg methadone, abruptly stopped. will provide methadone 20 mg qd.additional 10 mg methadone provided t angelo.- diarrhea no longer present, resolved, likely opioid withdrawal?- thrombocytope [place], likely sequela from etoh abuse. - transaminitis, improving from etoh abuse . monitor. - continue current care, and regimen. 2. Methadone dependence IC D Code F11.20 - Opioid dependence, uncomplicated Reason Cont. Hospitalizati on:etoh withdrawal Billing Inpatient CodesFollow-up [id number] Electronically Sign ed by HOMER ALVARADO DO on 06/24/19 at 1701 HOMER ALVARADO DO Electronically Signed 06/24/19 1701 Providers:HOMER ALVARADO DO Report Entered Date/Time: 1659Current Report Status: Signed Report #: [id number] PCP ID: NONE ATTENDING ID: LIZA AUTHOR ID: LIZA Name Value Range Interpretation Code Description Data Yue rce(s) Supporting Document(s ) ID Date Data Source [id number] 06/24/2019 09:02:00 AM EDT [facility] Name Value Range Interpretation Description Data Sup porting Code Source(s) Document(s ) GLUCOSE 106 74-106 [facility] mg/dL [facility] BUN 14 mg/dL 7-18 [facility] CREATININE 0.543 0.700-1. Below low normal [facility] mg/dL 300 [facility] EST.GLOMERULAR 150.61 >=60.0 [facility] FILTRATION mL/min [facility] EST.GFR 182.24 >=60.0 [facility] mL/min [facility] PHARMACY 71.68 >=60.00 [facility] COCKCROFT-DARA mL/min [place] [facility] BUN/CREAT 25.7 6.0-20.0 Above high normal [facility] RATIO [facility] SODIUM 137 135-145 [facility] mmol/L [facility] POTASSIUM 4.1 3.5-5.1 [facility] mmol/L [facility] CHLORIDE 104 98-107 [facility] mmol/L [facility] CO2 24 21-32 [facility] mmol/L [facility] ANION GAP 9.0 8-20 [facility] mmol/L [facility] AST 127 U/L 15-37 Above high normal [facility] ALK PHOS 162 U/L 45-117 Above high normal [facility] TOTAL 0.9 0.2-1.0 [facility] BILIRUBIN mg/dL [facility] TOTAL PROTEIN 7.5 g/dL 6.4-8.2 [facility] ALBUMIN 2.8 g/dL 3.4-5.0 Below low normal [facility] GLOBULIN 4.7 g/dL 2.6-3.8 Above high normal [facility] A/G RATIO 0.6 1.0-5.0 Below low normal [facility] CALCULATION [facility] CALCIUM 9.2 8.5-10.1 [facility] mg/dL [facility] ALTI 162 U/L 16-61 Above high normal [facility] OSMOLALITY 275 273-304 [facility] CALCULATION mos/kg [facility] ID Date Data Source [id number] 06/24/2019 09:02:00 AM EDT [facility] Name Value Range Interpretation Description Data Sup porting Code Source(s) Document(s ) PHOSPHORUS 3.9 mg/dL 2.5-4.9 [facility] ID Date Data Source [id number] 06/24/2019 09:02:00 AM EDT [facility] Name Value Range Interpretation Description Data Sup porting Code Source(s) Document(s ) MAGNESIUM 2.0 mg/dL 1.8-2.4 [facility] ID Date Data Source [id number] 06/23/2019 04:17:00 PM EDT [facility] PATIENT: TITA PULIDO JR STATUS: ADM INACCOUNT #: [id number] ADM UNIT #: [id number] ROOM/BE D: 509-01SEX: M ATTEND: DEBRA ALVARADO DOOB: 52 AGE: 69 AUTHOR: HOMER ALVARADO DO PCP: NO DOCTOR Service Date/Time: 06/23/19 1608 Subjective.Appears minimally confu sed. Not oriented to place or situation. Objective.Height: ft: 5 in: 9 cm: 175.3 Weight: lbs: 178 k.739 BMI: 26.273BMI Classification: Overweight Date: Time: 0244Vital Signs Result Date Alan e B/P 133/97 06/22 1100 T emp 97.4 06/22 1100 Pulse 1 16 06/22 1100 Resp 20 06/22 1100 Pulse Ox 93 06/22 0940 O2 Delivery N AKANKSHA CANNULA 06/22 0940 O2 Flow Rate 3 06/22 0910 Physical Exam Physical ExamConstitutional alert, awake, non-toxic appearingEyes Eye Exam bilateral eye anictericEENT Head and Face no gross deformity Nose no ac tive bleedingCardiovascular regular rhythm, tachycardicRespiratory breath sounds equ al bilat, no respiratory distressGI Abdomen soft, non-tenderMusculoskeletal Chest no tenderness to palp Extremities non-tenderSkin/Integumentary warmNeuro a ppropriate for age, no gross sensory deficit, speech normalPsych normal affect, normal mood Results.Laboratory Tests 06/22 953 Chemistry Sodium (135 - 145 mmol/L) 137 Potassium (3.5 - 5.1 mmol/L) 3.4 Chloride (98 - 107 mmol/L) 103 BUN (7 - 18 mg/dL) 11 Creatinine (0.700 - 1.300 mg/dL) 0.580 Glucose (74 - 106 mg/dL) 107 Problem, Assessment PlanPROBLEM, ASSES SMENT PLAN: 1. Alcohol withdrawal ICD Code F10.239 - Alcohol dependence with w ithdrawal, unspecified Qualifiers Complication of substance-induced condit ion: with unspecified complication Qualified Code: F10.239 - Alcohol dependence with withdrawal, unspecified Assess Plan: 69-year-old male presented with alcohol intoxication. Admitted for alcohol withdrawal. CXR with no acute infiltrate . Initial ETOH 235. - will continue current regimen.- thiamine, folate, multivitamin . - potassium phosphate supplementation. - valium, ciwa scoring. - utox positive fo r methadone. per sister, the patient has IVDU history, was previously on 40 mg methado ne, abruptly stopped. will provide methadone 20 mg qd.- diarrhea will obtain stool st udies.- thrombocytopenia, likely sequela from etoh abuse. - transaminitis, improving f rom etoh abuse. monitor. - continue current care, and regimen. 2. Methadone depen dence ICD Code F11.20 - Opioid dependence, uncomplicated Reason Cont. Hospitalizati on:alcohol withdrawal Billing Inpatient CodesFollow-up [id number] Electronically Sign ed by HOMER ALVARADO DO on 06/23/19 at 1617 HOMER ALVARADO DO Electronically Signed 06/23/19 1617 Providers:HOMER ALVARADO DO Report Entered Date/Time: 1608Current Report Status: Signed Report #: [id number] PCP ID: NONE ATTENDING ID: LIZA AUTHOR ID: LIZA Name Value Range Interpretation Code Description Data Yue rce(s) Supporting Document(s ) ID Date Data Source [id number] 06/23/2019 10:25:00 AM EDT [facility] Name Value Range Interpretation Description Data Sup porting Code Source(s) Document(s ) GLUCOSE 107 74-106 Above high normal [facility] mg/dL [facility] BUN 11 mg/dL 7-18 [facility] CREATININE 0.580 0.700-1. Below low normal [facility] mg/dL 300 [facility] EST.GLOMERULAR 139.58 >=60.0 [facility] FILTRATION mL/min [facility] EST.GFR 168.89 >=60.0 [facility] mL/min [facility] PHARMACY 71.68 >=60.00 [facility] COCKCROFT-DARA mL/min [place] [facility] BUN/CREAT 18.9 6.0-20.0 [facility] RATIO [facility] SODIUM 137 135-145 [facility] mmol/L [facility] POTASSIUM 3.4 3.5-5.1 Below low normal [facility] mmol/L [facility] CHLORIDE 103 98-107 [facility] mmol/L [facility] CO2 26 21-32 [facility] mmol/L [facility] ANION GAP 8.0 8-20 [facility] mmol/L [facility] AST 183 U/L 15-37 Above high normal [facility] ALK PHOS 175 U/L 45-117 Above high normal [facility] TOTAL 1.3 0.2-1.0 Above high normal [facility] BILIRUBIN mg/dL [facility] TOTAL PROTEIN 7.7 g/dL 6.4-8.2 [facility] ALBUMIN 3.0 g/dL 3.4-5.0 Below low normal [facility] GLOBULIN 4.7 g/dL 2.6-3.8 Above high normal [facility] A/G RATIO 0.6 1.0-5.0 Below low normal [facility] CALCULATION [facility] CALCIUM 9.3 8.5-10.1 [facility] mg/dL [facility] ALTI 192 U/L 16-61 Above high normal [facility] OSMOLALITY 274 273-304 [facility] CALCULATION mos/kg [facility] ID Date Data Source [id number] 06/23/2019 10:25:00 AM EDT [facility] Name Value Range Interpretation Description Data Sup porting Code Source(s) Document(s ) PHOSPHORUS 2.8 mg/dL 2.5-4.9 [facility] ID Date Data Source [id number] 06/23/2019 10:25:00 AM EDT [facility] Name Value Range Interpretation Description Data Sup porting Code Source(s) Document(s ) MAGNESIUM 1.8 mg/dL 1.8-2.4 [facility] ID Date Data Source [id number] 06/22/2019 09:36:00 PM EDT [facility] PATIENT: TITA PULIDO JR STATUS: ADM INACCOUNT #: [id number] ADM UNIT #: [id number] ROOM/BED: [place] [address]SEX: M ATTEND: DEBRA ALVARADO DOOB : 54 AGE: 69 AUTHOR: GREG ROBLES MD PCP: NO DOCTOR Service Date/Time: 06/20/19 2158 HPI.ADMITTED D ATE:06/20/19 Chief Complaint:. [Alcohol withdrawal] History of Present Illness: [69-year-old alcoholic sent in from family due to alcohol intoxication/withdrawal. He is visiting family from [place]. Family was concerned due to his alcohol depende nce. Patient reports that he has had about 30-40 drinks over the course of 24 hours . He is tremulous, tachycardic with elevated LFTs. No fevers, chills, chest pain, sh ortness of breath. Admit for alcohol withdrawal. Alcohol level is 235.] Past Medical History: HEROIN ABUSE, ETOH ABUSE Past Surgical History: DENIES Medicatio ns: AllergiesCoded Allergies:No Known Allergies (06/20/19) Objective.Height: ft: 5 in: 9 cm: 175.3 Weight: lbs: 178 k.739 BMI: 26.273BMI Classification: Overweight Date: 06/21/19 Time: 1902Vital Signs Result Date Time B/P 148/102 06/20 0113 Temp 99.2 06/20 0113 Pulse 134 06/20 0 113 Resp 30 06/20 0113 Pulse Ox 98 06/20 0101 ROS: Per HPIPhysical exam:Constitutional: Lethar gicHead and Face: the head and face were normal in appearance. Eyes: the sclera a nd conjunctiva were normal, pupils were equal in size, round, eyelids normal. ENT: the ears and nose were normal in appearance, tongue moist. Neck: the appearance was n ormal, neck was supple. Pulmonary: no respiratory distress, normal respiratory rhythm and effort and clearbilateral breath sounds. Heart: TachycardicAbdominal: no n tender, non distended. No appreciable hepatosplenomegaly. Bowel sounds normal. Skin: Normal color and intact without appreciable rash or abnormal skin lesion . Extremities: no LE edema Physical Exam Sepsis Focused ExamSepsis focused exam p erformed: N/A Results. 06/19 0 06/19 06/19 2134 1946 1 946 Chemistry Sodium (135 - 145 mmol/L) 134 L Potassium (3.5 - 5.1 mmol/L) 3.7 Chloride (98 - 107 mmol/L) 97 L Carbon Dioxide (21 - 32 mmol/L) 18 L Anion Gap (8 - 20 mmol/L) 19.0 BUN (7 - 18 mg/ dL) 19 H Creatinine (0.700 - 1.300 mg/dL) 0.820 Est Cr Clr Drug Dosing (>=60.00 mL/ min) 71.68 Est GFR (MDRD) Af Amer (>=60.0 mL/min) 113.26 Est GFR (MDRD) Non-Af (>=60.0 mL/min) 93.60 BUN/Creatinine Ratio (6.0 - 20.0) 23.1 H Glucose (74 - 106 mg/dL) 173 H Calculated Osmolality (273 - 304 mos/kg) 275 Calcium (8.5 - 10.1 mg/dL) 9.4 Total B ilirubin (0.2 - 1.0 mg/dL) 2.1 H AST (15 - 37 U/L) 869 H ALT (16 - 61 U/L) 409 H Alkaline Phosphatase (45 - 117 U/L) 237 H Ammonia (11 - 32 umol/L) 22 Total Protein (6.4 - 8.2 g/dL) 8.4 H Albumin (3.4 - 5.0 g/dL) 3.4 Globulin (2.6 - 3.8 g/dL) 5.0 H Albumin/G lobulin Ratio (1.0 - 5.0) 0.7 L TSH, Ultra Sensitiv e (0.358 - 3.74 uIU/mL) 0.129 L 06/19 1946 Hematology WBC (4.00 - 10.00 K/uL) 9.90 RBC (4.63 - 6.08 M/uL) 4.53 L Hgb (13.7 - 17.5 g/dL) 14.1 Hct (40.1 - 51. 0 %) 40.9 MCV (80.0 - 96.0 fL) 90.3 MCH (27.0 - 33.2 pg) 31.1 MCHC (32.2 - 35.5 g/dL) 34.5 RDW (11.6 - 14. 4 %) 16.0 H Plt Count (150 - 450 K/uL) 130 L MPV (8.5 - 11.8 fL) 11.3 Immature Plt Fraction (1.1 - 6.1 %) 9.4 H Laboratory Tests 06/19 2134 Coagulation PT (10.2 - 13. 2 sec) 10.5 INR 0.91 APTT (26.2 - 38.2 sec) 28.1 06/19 2336 Urines Urine Color (YELLOW) BROWN Urine Clarity (CLEAR) SLIGHTLY CLOUDY Urin e pH (4.6 - 8.0) 6.5 Ur Specific [place] ( 1.001 - 1.035) >=1.030 Urine Protein (NEGATIVE) >=300 Urine Ketones (NEGATIVE mg/dL) >=160 Urine Blood (N EGATIVE) LARGE Urine Nitrite (NEGATIVE) NEGATIVE Urine Bilirubin (NEGATIVE) LARGE H Urine Urobilinogen (0.2 - 0.9 E.U./dL) 2.0 Urine Leuko cytes (NEGATIVE) NEGATIVE Urine RBC (Auto) (0 - 3 /HPF) 0-3 U Hyaline Cast (Auto) (NONE SEEN /LPF) 21-50 Urine Bacteria (Auto) (NEGATIVE /HPF) TRACE Uri ne WBC (0 - 5 /HPF) 0-5 Urine Glucose (NEGAT BRANDON mg/dL) NEGATIVE Chest x-ray: Tortuous ectatic thoracic aorta No infil trate or effusion Chronic obstructive pulmonary disease. Core Measures Stroke/ TIANew Onset STK/TIA? No Problem, Assessment PlanPROBLEM, ASSESSMENT PLAN: 1. Alco hol withdrawal ICD Code F10.239 - Alcohol dependence with withdrawal, unspecified Qualifiers Complication of substance-induced condition: with unspec ified complication Qualified Code: F10.239 - Alcohol dependence with withdrawal, unsp ecified Assess Plan:- Place patient on withdrawal protocol - Trend chem and LFT s.- replete electrolyte- Start on MVI/folate/Thiamine.- Banana bag- IV flu id Total admission time: About 50 minutes. More than 50% of time was spen t on history, physical exam, medical decision making. Remainder of time spent on coun seling and coordination of care. Patient endorsed to me by ER team. My involveme nt in care for patient was for initial H P. Care to be resumed by daytime attending. Billing Inpatient CodesInitial/Cons [id number] Electronically Signed by GREG ROBLES MD o n 06/22/19 at 2136 GREG ROBLES MD Electronically Signed 06/22/19 2136 Providers:GREG ROBLES MD Report Entered Date/Time: 06/20/192157Current Report Status: Signed Report #: [id number] PCP ID: NONE ATTENDING ID: LIZA AUTHOR ID: KRISH Name Value Range Interpretation Code Description Data Yue rce(s) Supporting Document(s ) ID Date Data Source [id number] 06/22/2019 05:14:00 PM EDT [facility] PATIENT: TITA PULIDO JR STATUS: ADM INACCOUNT #: [id number] ADM UNIT #: [id number] ROOM/BE D: L.509-01SEX: M ATTEND: DEBRA ALVARADO DOOB: 54 AGE: 69 AUTHOR: HOMER ALVARADO DO PCP: NO DOCTOR Service Date/Time: 06/22/19 4038 See AddendumSubjective.Patient agrees to drinkin etoh daily. Drinks at least 1 gl ass of pastora liquour. No acute events overnight. CIWA scoring and requiring va lium. Objective.Height: ft: 5 in: 9 cm: 175.3 Weight: lbs: 178 k.739 BMI: 26.273BMI Classif ication: Overweight Date: 06/21/19 Time: 0244Vital Signs Result Date Time B/P 138/104 1100 Temp 97.4 06/21 1100 Pulse 124 06/21 1100 Pulse Ox 95 06/21 0800 O2 Delivery Nasal Cannula 06/21 0800 O2 Flow Rate 3.0/L 06/21 0800 Resp 16 06/21 0600 Physical Exam Physical ExamConstitutional alert, awakeEyes Eye Exam bilateral eye lids normalEENT Head and Face no gross defo rmity Nose no active bleedingCardiovascular regular rhythm, tachycardicRespiratory b reath sounds equal bilat, no respiratory distressGI Abdomen soft, non-tenderMus culoskeletal Chest no tenderness to palp Extremities non-tenderSkin/Integumentary warmNeuro appropriate for age, no gross sensory deficit, speech normalPsych norm al affect, normal mood, anxious Problem, Assessment PlanPROBLEM, ASSESSMENT P LUZ MARIA: 1. Alcohol withdrawal ICD Code F10.239 - Alcohol dependence with withdrawal, un specified Qualifiers Complication of substance-induced condition: with unspec ified complication Qualified Code: F10.239 - Alcohol dependence with withdrawal, unsp ecified Assess Plan: - will continue current regimen.- thiamine, folate, mult ivitamin. - potassium phosphate supplementation. - valium, ciwa scoring. - utox positive for methadone, however, no methadone noted on istop reference.- nikkie rrhea will obtain stool studies.- thrombocytopenia, likely sequela from et oh abuse. - transaminitis from etoh abuse. monitor. - continue current care, and re gimen. Reason Cont. Hospitalization:alcohol withdrawal. Billing Inpatient CodesFollo w-up [id number] at 1512 Addendum 1: 06/22/19 1714 by HOMER ALVARADO DO AddendumText- Spoke with Sister over the phone, the pa bal goes to a methadone clinic and receives 40 mg qd. - Utox positive for methadone. - per sister, he has abruptly stopped his methadone about 7-10 days ago. he remain s tachycardic, with episodes of diarrhea yesterday. will place on methadone 20 mg qd. for now. at 1714 HOMER ALVARADO DO Electronically Signed 06/22/19 1512 Providers:HOMER ALVARADO DO Report Entered Date/Time: 06/22/19 1508Current Report Status: Signed Rep ort #: [id number] PCP ID: NONE ATTENDING ID: LIZA AUTHOR ID: JENNY JORDAN Name Value Range Interpretation Code Description Data Yue rce(s) Supporting Document(s ) ID Date Data Source [id number] 06/21/2019 09:17:00 AM EDT [facility] MENT OF DIAGNOSTIC IMAGING Patient Name: TITA PULIDO JR : 1950 Patient Addr.: Todd ENAMORADO DR, MR#: [id number] [place] [address] Patient Phone #: Dictate Date: 06/22/19825 Ordering M.D.: HARLAN DAVIS,CEE ESPARZA ID: DURHI Trans Date: Copies to: ; CC ID: ; Patient Loc: Jessica5N L.509-01 Report #: [id number] Order Number(s): [id number] Site: [facility] Exam Date/Time: 1- Exam: EKG, Routine 12 Lead PROCEDURE: EKG, 12 LEAD ROUTINE COMPARISON: None. Ventricular Rate: 123.00 BPM NM Interval: 180.00 ms QRS Duration: 102.00 ms PRT Rogers: 48 31 75 QT/QTC 300/429 CONCLUSION : SINUS TACHYCARDIA WITH OCCASIONAL AND CONSECUTIVE PREMATURE VENTRICULAR COMPLE XES AND FUSION COMPLEXES ABNORMAL ECG Dictated by: Matt Ambriz MD on 06/22/2019 at 8:26 AM Approved by: Matt Ambriz MD on 06/22/2019 at 8:26 AM APPENDIX: Signed: 06/22/19825 MATT AMBRIZ MD TRN: TBY Name Value Range Interpretation Code Description Data Yue rce(s) Supporting Document(s ) ID Date Data Source [id number] 06/22/2019 08:28:00 AM EDT [facility] Name Value Range Interpretation Description Data Sup porting Code Source(s) Document(s ) WBC 7.23 K/uL 4.00-10.[address] RBC 4.22 M/uL 4.63-6.08 Below low normal [facility] HGB 13.1 g/dL 13.7-17.5 Below low normal [facility] HCT 38.6 % 40.1-51.0 Below low normal [facility] MCV 91.5 fL 80.0-96.0 [facility] MCH 31.0 pg 27.0-33.2 [facility] MCHC 33.9 g/dL 32.2-35.5 [facility] RDW 16.3 % 11.6-14.4 Above high normal [facility] PLT 127 K/uL 150-450 Below low normal [facility] MPV 12.0 fL 8.5-11.8 Above high normal [facility] MARTIR% 74.7 % 38.9-69.8 Above high normal [facility] LYM% 16.5 % 21.7-51.7 Below low normal [facility] MONO% 6.9 % 4.7-12.2 [facility] EOS% 0.7 % 0.8-7.0 Below low normal [facility] BASO% 0.8 % 0.1-1.2 [facility] IMMATURE 0.4 % 0.1-0.3 Above high normal [facility] GRANULOCYTE% [facility] The immature granulocyte count is an enu meration ofmetamyelocytes, myelocyte, and promyelocytes present in [facility] blood sa mple. It does not include band neutrophilforms. ABSOLUTE NEUTROPHIL COUNT 5.40 K/uL 1.46-7.12 [facility] MONO# 0.50 K/uL 0.24-0.86 [facility] EOSIN# 0.05 K/uL 0.04-0.54 [facility] BASO# 0.06 K/uL 0.01-0.08 [facility] IMMATURE GRANULOCYTES# 0.03 K/uL 0.01-0.03 [facility] s [facility] ID Date Data Source [id number] 06/22/2019 09:56:00 AM EDT [facility] Name Value Range Interpretation Description Data Sup porting Code Source(s) Document(s ) BAND 2.0 % 0.0-20.0 [facility] NEUTROPHIL [facility] SEGMENTED 64.0 % 38.9-69.8 [facility] NEUTROPHIL [facility] ABSOLUTE 4.77 K/uL 1.46-7.12 [facility] NEUTROPHIL [facility] BASOPHIL 3.0 % 0.1-1.2 Above high [facility] normal [facility] LYMPHOCYTE 22.0 % 21.7-51.7 [facility] MONOCYTE 9 % 4.7-12.2 [facility] PLATELET DECREASED ADEQUATE Below low normal [facility] ESTIMATE [facility] HYPOCHROMIA OCCASIONAL NEGATIVE Abnormal [facility] (applies to [facility] - results) [place] TARGET CELLS 1+ NEGATIVE Abnormal [facility] ([facility]lies to [facility] - results) [place] TEAR DROP OCCASIONAL NEGATIVE Abnormal [facility] CELLS (applies to [facility] - results) [place] ID Date Data Source [id number] 06/22/2019 08:44:00 AM EDT [facility] Name Value Range Interpretation Description Data Sup porting Code Source(s) Document(s ) GLUCOSE 117 74-106 [facility] BUN 13 mg/dL 7-18 [facility] CREATININE 0.539 0.700-1. Below low normal [facility] mg/dL 300 [facility] EST.GLOMERULAR 151.90 >=60.0 [facility] FILTRATION mL/min [facility] EST.GFR 183.80 >=60.0 [facility] mL/min [facility] PHARMACY 71.68 >=60.00 [facility] COCKCROFT-DARA mL/min [facility] BUN/CREAT 24.1 6.0-20.[address] [facility] RATIO [facility] SODIUM 138 135-145 [facility] mmol/L [facility] POTASSIUM 3.2 3.5-5.1 Below low normal [facility] mmol/L [facility] CHLORIDE 104 98-107 [facility] mmol/L [facility] CO2 26 21-32 [facility] mmol/L [facility] ANION GAP 8.0 8-20 [facility] mmol/L [facility] AST 322 U/L 15-37 Above high normal [facility] ALK PHOS 189 U/L 45-117 Above high normal [facility] TOTAL 1.5 0.2-1.0 Above high normal [facility] BILIRUBIN mg/dL [facility] TOTAL PROTEIN 7.4 g/dL 6.4-8.2 [facility] ALBUMIN 2.9 g/dL 3.4-5.0 Below low normal [facility] GLOBULIN 4.5 g/dL 2.6-3.8 Above high normal [facility] A/G RATIO 0.6 1.0-5.[address] [facility] CALCULATION [facility] CALCIUM 9.6 8.5-10.1 [facility] mg/dL [facility] ALTI 244 U/L 16-61 Above high normal [facility] OSMOLALITY 277 273-304 [facility] CALCULATION mos/kg [facility] ID Date Data Source [id number] 06/22/2019 08:44:00 AM EDT [facility] Name Value Range Interpretation Description Data Sup porting Code Source(s) Document(s ) PHOSPHORUS 1.7 mg/dL 2.5-4.9 Below low normal [facility] ID Date Data Source [id number] 06/22/2019 08:44:00 AM EDT [facility] Name Value Range Interpretation Description Data Sup porting Code Source(s) Document(s ) MAGNESIUM 1.8 mg/dL 1.8-2.4 [facility] ID Date Data Source [id number] 06/21/2019 03:57:00 PM EDT [facility] PATIENT: TITA PULIDO JR STATUS: ADM INACCOUNT #: [id number] ADM UNIT #: [id number] ROOM/ D: 509-01SEX: M ATTEND: DEBRA ALVARADO DOOB: [birth year] AGE: 69 AUTHOR: HOMER ALVARADO DO PCP: NO DOCTOR Service Date/Time: 06/21/19 1547 Subjective.Seen and examined at [facility]. CIWA score qualified for valium Objective.Height: ft: 5 in: 9 cm: 175.3 Weight: lbs: 178 k.739 BMI: 26.273BMI Classification: Overweight Date: Time: 0244Vital Signs Result Date Time Pulse Ox 94 06/20 1200 B/P 156/94 06/20 1200 Temp 97.9 1200 Pulse 129 06/20 1200 Resp 20 06/20 1200 O2 Delivery Nasal Can nula 06/20 0800 Physical Exam Physical ExamConstitutional alert, awakeEyes Ey e Exam bilateral eye lids normalEENT Head and Face no gross deformity Nose no ac tive bleedingCardiovascular regular rhythm, tachycardicRespiratory breath sounds equ al bilat, no respiratory distressGI Abdomen soft, non-tenderMusculoskeletal Chest no tenderness to palp Extremities non-tenderSkin/Integumentary warmNeuro a ppropriate for age, no gross sensory deficit, speech normalPsych normal affect, normal mood, anxious Results.Laboratory Tests 06/20 Chemistry Sodium (135 - 145 mmol/L) 136 134 Potassium (3.5 - 5.1 mmol/L) 3.3 3.7 Chloride (98 - 107 mmol/L) 101 97 BUN (7 - 18 mg/dL ) 17 19 Creatinine (0.700 - 1.300 mg/dL) 0.70 9 0.820 Glucose (74 - 106 mg/dL) 128 173 06/20 Hematology WBC (4. 00 - 10.00 K/uL) 7.35 9.90 Hgb (13.7 - 17.5 g/dL) 13 .1 14.1 Hct (40.1 - 51.0 %) 37.4 40.9 Plt Count (150 - 450 K/uL) 115 130 Problem, Assessment PlanPROBLEM , ASSESSMENT PLAN: 1. Alcohol withdrawal ICD Code F10.239 - Alcohol dependence wi th withdrawal, unspecified Qualifiers Complication of substance-induced condit ion: with unspecified complication Qualified Code: F10.239 - Alcohol dependence with withdrawal, unspecified Assess Plan:- will continue current regimen.- thiamine, fol ate, multivitamin. - potassium phosphate supplementation. - valium, ciwa scoring. - utox positive for methadone, however, no methadone noted on istop reference.- nikkie rrhea will obtain stool studies.- thrombocytopenia, likely sequela from et oh abuse. - transaminitis from etoh abuse. monitor. Reason Cont. Hospitalization: alcohol withdrawal Billing Inpatient CodesFollow-up [id number] Electronically Sign ed by HOMER ALVARADO DO on 06/21/19 at 1556 HOMER ALVARADO DO Electronically Signed 06/21/19 1556 Providers:HOMER ALVARADO DO Report Entered Date/Time: 1547Current Report Status: Signed Report #: [id number] PCP ID: NONE ATTENDING ID: LIZA AUTHOR ID: LIZA Name Value Range Interpretation Code Description Data Yue rce(s) Supporting Document(s ) ID Date Data Source [id number] 06/21/2019 07:03:00 AM EDT [facility] Name Value Range Interpretation Code Description Data Yue rce(s) Supporting Document(s ) WBC 7.35 K/uL 4.00-10.00 [facility] RBC 4.18 M/uL 4.63-6.08 Below low normal [facility] HGB 13.1 g/dL 13.7-17.5 Below low normal [facility] HCT 37.4 % 40.1-51.0 Below low normal [facility] MCV 89.5 fL 80.0-96.0 [facility] MCH 31.3 pg 27.0-33.2 [facility] MCHC 35.0 g/dL 32.2-35.5 [facility] RDW 16.2 % 11.6-14.4 Above high normal [facility] PLT 115 K/uL 150-450 Below low normal [facility] IPF 9.1 % 1.1-6.1 Above high normal [facility] Immature platelet fraction is the ratio of immatureplatelets to the total number of platelets in the patient'speripheral blo od. These immature cells, newly released fromthe bone marrow, may contain increas ed amounts ofcytoplasmic RNA. This count is a measure of thrombopoieticactivity of t he bone marrow. MPV 11.5 fL 8.5-11.8 [facility] ID Date Data Source [id number] 06/21/2019 09:17:00 AM EDT [facility] Name Value Range Interpretation Description Data Sup porting Code Source(s) Document(s ) BAND NEUTROPHIL 7.0 % 0.0-20.0 [facility] SEGMENTED 80.0 % 38.9-69.8 Above high [facility] NEUTROPHIL normal [facility] ABSOLUTE 6.39 K/uL 1.46-7.12 [facility] NEUTROPHIL [facility] LYMPHOCYTE 6.0 % 21.7-51.7 Below low normal [facility] MONOCYTE 6 % 4.7-12.2 [facility] METAMYELOCYTE 1.0 % 0.0-1.0 [facility] GIANT PLATELETS 1+ NEGATIVE [facility] PLATELET DECREASED ADEQUATE Below low normal [facility] ESTIMATE [facility] Rare platelet clumps seen on peripheral blood smear. HYPOCHROMIA OCCASIONAL NEGATIVE Abnormal (applies to [facility] non-numeric results) [facility] ANISOCYTOSIS OCCASIONAL NEGATIVE Abnormal (applies to [facility] non-numeric results) [facility] MICROCYTOSIS OCCASIONAL NEGATIVE Abnormal (applies to [facility] non-numeric results) [facility] MACROCYTOSIS OCCASIONAL NEGATIVE Abnormal (applies to [facility] non-numeric results) [facility] TOXIC VACUOLIZATION PRESENT NEGATIVE Abnormal (applies to [facility] non-numeric results) [facility] ID Date Data Source [id number] 06/21/2019 07:15:00 AM EDT [facility] Name Value Range Interpretation Description Data Sup porting Code Source(s) Document(s ) GLUCOSE 128 74-106 Above high normal [facility] mg/dL [facility] BUN 17 mg/dL 7-18 [facility] CREATININE 0.709 0.700-1. [facility] mg/dL 300 [facility] EST.GLOMERULAR 110.71 >=60.0 [facility] FILTRATION mL/min [facility] EST.GFR 133.96 >=60.0 [facility] mL/min [facility] PHARMACY 71.68 >=60.00 [facility] COCKCROFT-DARA mL/min [place] [facility] BUN/CREAT 23.9 6.0-20.0 Above high normal [facility] RATIO [facility] SODIUM 136 135-145 [facility] mmol/L [facility] POTASSIUM 3.3 3.5-5.1 Below low normal [facility] mmol/L [facility] CHLORIDE 101 98-[facility] mmol/L [facility] CO2 22 21-[facility] mmol/L [facility] ANION GAP 13.0 8-20 [facility] mmol/L [facility] CALCIUM 8.9 8.5-10.1 [facility] mg/dL [facility] OSMOLALITY 275 273-304 [facility] CALCULATION mos/kg [facility] ID Date Data Source [id number] 06/21/2019 07:15:00 AM EDT [facility] Name Value Range Interpretation Description Data Sup porting Code Source(s) Document(s ) PHOSPHORUS 1.5 mg/dL 2.5-4.9 Below low normal [facility] ID Date Data Source [id number] 06/21/2019 07:15:00 AM EDT [facility] Name Value Range Interpretation Description Data Sup porting Code Source(s) Document(s ) MAGNESIUM 2.1 mg/dL 1.8-2.4 [facility] ID Date Data Source [id number] 06/20/2019 11:49:00 PM EDT [facility] Name Value Range Interpretation Description Data Sup porting Code Source(s) Document(s ) POCT COLOR BROWN YELLOW [facility] POCT CLARITY SLIGHTLY CLEAR [facility] CLOUDY [facility] POCT GLUCOSE NEGATIVE NEGATIVE [facility] mg/dL [facility] POCT BILIRUBIN LARGE NEGATIVE Above high [facility] normal [facility] POCT KETONES >=160 NEGATIVE [facility] mg/dL [facility] POCT SPECIFIC >=1.030 1.001-1.03 [facility] GRAVITY 5 [facility] POCT BLOOD LARGE NEGATIVE [facility] POCT pH 6.5 4.6-8.0 [facility] POCT PROTEIN >=300 NEGATIVE [facility] POCT 2.0 0.2-0.9 [facility] UROBILINOGEN E.U./dL [facility] POCT NITRITE NEGATIVE NEGATIVE [facility] POCT NEGATIVE NEGATIVE [facility] LEUKOCYTES [facility] ID Date Data Source [id number] 06/21/2019 03:14:00 AM EDT [facility] Name Value Range Interpretation Description Data Sup porting Code Source(s) Document(s ) ICTOTEST POSITIVE NEGATIVE [facility] ID Date Data Source [id number] 06/21/2019 12:00:00 AM EDT [facility] Name Value Range Interpretation Description Data Sup porting Code Source(s) Document(s ) WBC IQ 0-5 /HPF 0-5 [facility] RBC IQ 0-3 /HPF 0-3 [facility] BACTERIA IQ TRACE NEGATIVE [facility] /HPF [facility] HYALINE CAST 21-50 NONE SEEN [facility] /LPF [facility] ID Date Data Source [id number] 06/21/2019 12:14:00 AM EDT [facility] Name Value Range Interpretation Description Data Sup porting Code Source(s) Document(s ) AMPHETAMINE NEGATIVE <1000> [facility] SCREEN ng/mL [facility] BARBITURATES NEGATIVE <200> [facility] SCREEN ng/mL [facility] BENZODIAZEPINE NEGATIVE <200> [facility] SCREEN ng/mL [facility] COCAINE NEGATIVE <300> [facility] METABOLITES ng/mL [facility] ECSTASY NEGATIVE <500> [facility] METABOLITE ng/mL [facility] CANNABINOID NEGATIVE <50> [facility] SCREEN ng/mL [facility] METHADONE SCREEN POSITIVE <300> Above high [facility] ng/mL normal [facility] PHENCYCLIDINE NEGATIVE <25> [facility] SCREEN ng/mL [facility] OPIATES SCREEN NEGATIVE <300> [facility] ng/mL [facility] THE SUBMITTED URINE SPECIMEN WAS TESTED AT THE LISTED DRUGCUTOFFS BELOW. POSITIVE RESULTS ARE TO BE CONSIDEREDUNCONFIRMED PRESUMPTIVE POSITIVE AND ARE INTENDED TO BEUSED FOR MEDICAL PURPOSES ONLY.FOR FAMILIA NTITATIVE CONFIRMATION CONTACT THE LAB AT [id number].SPECIMENS WILL BE HELD FOR 7 DAYS. DRUG CLASS INITIAL TEST CUTOFFAMPHETAMINES 1000 NG/MLBARBITURATES 200 NG/MLBENZODIAZEP SUNITA 200 NG/MLCOCAINE METABOLITE 300 NG/MLCANNABINOIDS 50 NG/MLECSTASY 500 NG/MLMETHADONE 300 NG/M LOPIATES 300 NG/MLPHENCYCLIDINE 25 NG/ML ID Date Data Source [id number] 06/20/2019 10:06:00 PM [facility] TITA PULIDO JR STATUS: REG ERACCOUNT #: [id number] SERVICE UNIT #: [id number] LOCAT ION: L.ERSEX: M PCP PHYS: NO DOCTORDOB: 54 AG E: 69 HARLAN DAVIS,CEE 06/[birth year]/191927:Psych Medical Clearance HP I Current HistoryAllergiesCoded Allergies:No Known Allergies (06/20/19) GeneralChief Complaint ALCOHOL INTOX/ABUSETriage Time 184Date seen 06/20/19Time seen 1927Hist ory from patient Past Medical Family HistorySurg Hist/Past HospitalizationDEN IESSocial history lives with family, no tobacco, no drug use, +ETOH History of P resent IllnessInitial CommentsPt sent in by nephew, who he is staying with because h e is considered about pt drinking. Pt has a hx of alcohol withdrawal in the past and had his last drink yesterday. He denies any current sx and medical hx. Pt affirms to normal PO and fluid intake and one episode of vomiting. No tremors or anxiety. Pt i s from [employer]. Portions of this section were scribed by RIGOBERTO DE LA ROSA on 0 at 1929 Psych Medical Clearance ROSPulmonary/CVS Pulmonary/CVS denie s chest pain, denies cough, denies trouble breathingNeuro/Eyes Neuro/Eyes denie s headache, denies visual disturbanceGI/ GI/ reports vomiting, denies abdomin al pain, denies diarrhea, denies nausea, deniesproblem urinatingSkin/Lymph/MS S kin/Lymph/MS denies joint pain, denies skin rash, denies swellingAll Other Systems p ertinent revw'd neg Portions of this section were scribed by RIGOBERTO DE LA ROSA on 06/20/19 at 1929 Psych Medical Clearance ExamNursing assessment reviewed YesVital signsVital Signs Date Time Temp Pulse Resp B/P B/P Pulse O2 O2 Flow FiO2 Mean Ox Delivery Rate 1858 97.9 123 18 140/102 99 Mental Health Risk AssessmentMenta l Status Exam Mental Status Exam oriented, good historian Mood normal Homicidal Ideation noCondition During Screening Process/ED Visit cooperativeSubstance Ab use Current Use yes Substance Abuse current use-yes Amount1-2 pints per da y, non today Prior Treatment tx ETOH abuse, in patientLegal none/NASuicide Risk Asse ssment Suicidal Ideation none/denies Physical ExamGeneral Appearance sleepy b ut arousableEyes Eye Exam bilateral eye anicteric, bilateral eye lids normal, bi lateral eye conjunctiva normalEENT Head and Face no gross deformity Throat/Mouth m ucosa pink/moistCardiovascular regular rhythm, normal heart sounds, mildly tach yRespiratory breath sounds equal bilat, breath sounds clear bilat, no respirator y distressGI Abdomen soft, non-tenderMusculoskeletal Extremities normal appearingSkin/Integumentary color normal, dryNeuro mild tremor to handsPsy ch oriented X3, answers questions approp., denies suicidal ideation, no homicidal i deations Portions of this section were scribed by RIGOBERTO DE LA ROSA on 06/20/19 at 1929 Last lab resultsPulse ox normalTime EKG performed 1919EKG read by me, no acute Q /ST/T changes, Sinus Tachycardia (vr 123), one pvc noted, qt/qtc 300/429 Portions o f this section were scribed by RIGOBERTO DE LA ROSA on 06/20/19 at 1948 Disposition Sign out Pt signed out to LUCINDA Powell 1938Assumed Pt yes, follow up labs, f/u radiologic stud ies, follow up disposition Portions of this section were scribed by RIGOBERTO DE LA ROSA on 06/20/19 at 1938 GASTON JOHNSTON 06/20/191954:Last lab resultsOther Imaging DEPARTMENT OF DIAGNOSTIC IMAGING Patient Name: TTIA SANDY JR : 2Patient Addr.: 89 REENA POTTS , MR#: [id number] [place] [address] Phone #: Dictate Date: 06/[birth year]Ordering Diony: CEE GONZALES NPMD ID: GABRIEL Trans Mane e:Copies to: CEE CLAROS NP;CC ID: [Patient Loc: Nhung #: [id number] Number(s): [id number] Site: [facility] Date/Time: 06/20/191940 Exam: CHEST 1 VIEW AP PORTABLE ROUT PROCEDURE: CHEST 1 VIEW, AP PORTABLE ROUTINE COMPARISON: None. INDICATION S: alcohol wd Thoracic aorta is tortuous and ectatic. Consideration must be given to aneurysmaldilatation. Thereis no infiltrate or effusion There is chronic obstructive pulmonary disease. Impression: Tortuous ectatic thoracic aorta No infil trate or effusion Chronic obstructive pulmonary disease. Dictated by: Alondra ibrahim MD on 06/20/2019 at 7:50 PM Approved by: Alondra Hall MD on 06/20/2019 at 7:5 3 PM Signed: 06/20/191952 ALONDRA HALL MD Lab Results Laboratory Tests 06/19 194hemistry Sodium (135 - 1 45 mmol/L) 134 L Potassium (3.5 - 5.1 mmol/L) 3.7 Chloride (98 - 107 mmol/L ) 97 L Carbon Dioxide (21 - 32 mmol/L ) 18 L Anion Gap (8 - 20 mmol/L) 19.0 BUN (7 - 18 mg/dL) 19 H Creatinine (0.700 - 1.300 mg/dL) 0.820 Est Cr Clr Drug Dosing (>=60.00 mL/min) 71.68 Est GFR (MDRD) Af Amer (>=60.0 mL/min) 113.26 Est GFR (MDRD) Non-Af (>=60.0 mL/min) 93.60 BUN/Creatinine Ratio (6.0 - 20.0) 23.1 H Glucose (74 - 106 mg/dL) 173 H Calculated Osmolality (273 - 304 mos/kg) 275 Calcium (8.5 - 10.1 mg/dL) 9.4 Total Bilirubin (0.2 - 1.0 mg/dL) 2.1 H AST (15 - 37 U/L) 869 H ALT (16 - 61 U/L) 409 H Alkaline Phosphatase (45 - 117 U/L) 237 H Ammonia (11 - 32 umol/L) 22 Tot al Protein (6.4 - 8.2 g/dL) 8.4 H Albumin (3.4 - 5.0 g/dL) 3.4 Globulin (2.6 - 3.8 g/dL) 5.0 H Albumin/Globulin R atio (1.0 - 5.0) 0.7 L TSH, Ultra Sensitive (0 .358 - 3.74 uIU/mL) 0.129 LCoagulation PT (10.2 - 13.2 sec) 10.5 INR 0.91 APTT (26.2 - 38.2 sec) 28.1Hematology WBC (4.00 - 10.00 K/uL) 9.90 RBC (4.63 - 6.08 M/uL) 4.53 L Hgb (13.7 - 17.5 g/dL) 14.1 Hct (40.1 - 51.0 %) 40.9 MCV (80.0 - 96.0 fL) 90.3 MCH (27.0 - 33.2 pg) 31.1 MCHC (32.2 - 35.5 g/dL) 34.5 RDW (11.6 - 14.4 %) 16.0 H Plt Count (150 - 450 K/uL) 130 L MPV (8.5 - 11.8 fL) 11.3 Immature Plt Fraction (1.1 - 6.1 %) 9.4 HToxicology Salicylates (2.8 - 20.0 mg/dL) < 1.7 L Acetaminophen (10.0 - 30.0 ug/mL) < 2.0 L Ethyl Alcohol (0 - 300 mg/dL) 235 Serum Ketones (NEGATIVE) NEGATIVE Portions of this section were scribed by JEAN MARIE LEWIS on 06/20/19 at 2141 Medical Decision/Pro wong/CC Progress/ReassessmentTime 5CommentsReceived signout from REFUSE DRIVER [facility]. HPI:69 y/o M w/ PMHx of ETOH abuse c/o generalized weakness w/ associated chill l and shakiness secondary to alcohol withdraw. Pt denies fever, V, siezures, abd pain orany other acute complaints at this time. Pt states that his last ETOH drink was last night. Pt is from [place] and is visiting family in the area. The family was concerned with his health. Patient overall is a poor historian, requiring a full work-up for alcohol withdrawal versus intox. He reports to drinking alcohol da ho. Labs, blood work, EKG, banana bag 1000 cc were ordered. I will add 1 mg of ativ an. ROS:Const: Chills, denies fevers,ENT: denies sore throat, difficulty swallowin gCV: denies chest pain, palpitationsPulm: denies cough, SOB, difficulty breathingA bd: denies abdominal pain, nausea, vomiting, diarrhea, constipationMSK: denies muscul ar pain, swelling, joint pain or joint swellingSkin: denies rash, denies itchin g Neuro: weakness, denies sensory change PE:GEN: awake, alert, has generalized tr emor movements, breath smells of acetone/alcoholEyes: +b/l slceral icteru s, PERRLA, EOMIHENT: MMM, no erythema or swellingCV: +Tachycardic, 2+ pulses in a ll 4 extResp: Talking in complete sentences, no respiratory distress, lung sounds CTA B/LAbd: Soft non-tender to palpExt: no ext swelling, full ROMNeuro: awake, alert, s peaking clearly, oriented x3, grossly neurologically intactSkin: +Jaundice tin ge to skinPsych: Age appropriate Alcohol level of 235, he reports having more trevor n 30 drinks last night into this morning. Pas elevated LFTs likely chronic, will requi re admission for acute alcohol withdrawal. Portions of this section were scribed by JEAN MARIE LEWIS on 06/20/19 at 2017 Disposition ED DispositionDecision made to Hospitalize YesHosp or Disch Decision Dt 06/20/19Hosp or Disch Decision Tm 2129Ad Henrietta ESPARZA,AUREAIKADiscussion with attending case discussed fully, aware-ED workup/fi ndings, agree w/management/plan, accept transfer of careDisposition [facility] HOSPITALIZEDClinical ImpressionPrimary Impression: Alcohol withdrawalQualifiers : Complication of substance-induced condition: with unspecified complication Qualified Code: F10.239 - Alcohol dependence with withdrawal, unspecifiedCondition Fa ir Authenticated by GASTON MITCHELL on 06/20/19 at 2204 at 1951 HARLAN DAVIS,CEE Electronic ally Signed 06/20/191951 Providers:HARLAN DAVIS,JC ESPARZA, GASTON BERRIOSReport Entered Date/Time: 06/20/191927Current Report S tatus: Signed Report #: [id number] PCP ID: NONE ATTENDING ID: KRISH AUTHOR ID: GABRIEL Name Value Range Interpretation Code Description Data Yue rce(s) Supporting Document(s ) ID Date Data Source [id number] 06/20/2019 09:56:00 PM EDT [facility] Name Value Range Interpretation Code Description Data Yue rce(s) Supporting Document(s ) AMMONIA 22 umol/L 11-32 [facility] ID Date Data Source [id number] 06/20/2019 09:52:00 PM EDT [facility] Name Value Range Interpretation Code Description Data Yue rce(s) Supporting Document(s ) PT 10.5 sec 10.2-13.2 [facility] INR 0.91 [facility] INR IS DESIGNED TO MONITOR THOSE PATIENT S STABILIZED ONORAL ANTICOAGULANT THERAPY. IT IS NOT SUITED FOR PRE-OPSCREENING OR FOR EVALUATING CONDITIONS SUCH LIVERDISEASE.THERAPEUTIC RANGE:PATIENTS ON ORAL ANTICOAGULANTS 2.00 - 3.00PATIENTS WITH PROSTHETIC HEART VALVES 2.50 - 3.5 0 ID Date Data Source [id number] 06/20/2019 09:52:00 PM EDT [facility] Name Value Range Interpretation Code Description Data Yue rce(s) Supporting Document(s ) APTT 28.1 sec 26.2-38.2 [facility] ID Date Data Source [id number] 06/20/2019 07:42:00 PM EDT [facility] DEPART MENT OF DIAGNOSTIC IMAGING Patient Name: TITA PULIDO JR : 1950 Patient Addr.: Todd ZOYASANDRA , MR#: [id number] [place] [address] Patient Phone #: Dictate Date: [birth year] Ordering M.D.: CEE CLAROS NP, MD ID: DURHI Trans Date: Copies to: CEE CLAROS NP; CC ID: ; Patient Loc: .ER Report #: [id number] Order Number(s): [id number] Site: [facility] Exam Date/Time: 06/19 Exam: CHEST 1 VIEW AP PORTABLE ROUT PROCEDURE: CHEST 1 VIEW, AP PORTABLE ROUTINE COMPARISON: None. INDICATIONS: alcohol wd Thora cic aorta is tortuous and ectatic. Consideration must be given to aneurysma l dilatation. Thereis no infiltrate or effusion There is chronic obstruct brandon pulmonary disease. Impression: Tortuous ectatic thoracic aorta No in filtrate or effusion Chronic obstructive pulmonary disease. Dictated by : Alondra Hall MD on 06/20/2019 at 7:50 PM Approved by: Alondra Hall MD on 06/05 at 7:53 PM Signed: 06/20/191952 ALONDRA HALL MD TRN: [facility] Name Value Range Interpretation Code Description Data Yue rce(s) Supporting Document(s ) ID Date Data Source [id number] 06/20/2019 08:28:00 PM EDT [facility] Name Value Range Interpretation Description Data Sup porting Code Source(s) Document(s ) TSH 3RD 0.129 0.358-3. Below low normal [facility] GENERATION uIU/mL 74 [facility] ID Date Data Source [id number] 06/20/2019 08:09:00 PM EDT [facility] Name Value Range Interpretation Code Description Data Yue rce(s) Supporting Document(s ) WBC 9.90 K/uL 4.00-10.00 [facility] RBC 4.53 M/uL 4.63-6.08 Below low normal [facility] HGB 14.1 g/dL 13.7-17.5 [facility] HCT 40.9 % 40.1-51.0 [facility] MCV 90.3 fL 80.0-96.0 [facility] MCH 31.1 pg 27.0-33.2 [facility] MCHC 34.5 g/dL 32.2-35.5 [facility] RDW 16.0 % 11.6-14.4 Above high normal [facility] PLT 130 K/uL 150-450 Below low normal [facility] IPF 9.4 % 1.1-6.1 Above high normal [facility] Immature platelet fraction is the ratio of immatureplatelets to the total number of platelets in the patient'speripheral blo od. These immature cells, newly released fromthe bone marrow, may contain increas ed amounts ofcytoplasmic RNA. This count is a measure of thrombopoieticactivity of t he bone marrow. MPV 11.3 fL 8.5-11.8 [facility] spiFormerly [facility] ID Date Data Source [id number] 06/20/2019 08:21:00 PM EDT [facility] Name Value Range Interpretation Description Data Sup porting Code Source(s) Document(s ) GLUCOSE 173 74-106 Above high normal [facility] mg/dL [facility] BUN 19 mg/dL 7-18 Above high normal [facility] CREATININE 0.820 0.700-[facility]. [facility] mg/dL 300 [facility] EST.GLOMERULAR 93.60 >=60.0 [facility] FILTRATION mL/min [facility] EST.GFR 113.[address] >=60[address] [facility] mL/min [facility] PHARMACY 71.68 >=60.00 [facility] COCKCROFT-DARA mL/min [place] [facility] BUN/CREAT 23.1 6.0-20.[address] [facility] RATIO [facility] SODIUM 134 135-145 Below low normal [facility] mmol/L [facility] POTASSIUM 3.7 3.5-5.1 [facility] mmol/L [facility] CHLORIDE 97 98-107 Below low normal [facility] mmol/L [facility] CO2 18 21-32 Below low normal [facility] mmol/L [facility] ANION GAP 19.0 8-20 [facility] mmol/L [facility] AST 869 U/L 15-37 Above high normal [facility] ALK PHOS 237 U/L 45-117 Above high normal [facility] TOTAL 2.1 0.2-1.0 Above high normal [facility] BILIRUBIN mg/dL [facility] TOTAL PROTEIN 8.4 g/dL 6.4-8.2 Above high normal [facility] ALBUMIN 3.4 g/dL 3.4-5.0 [facility] GLOBULIN 5.0 g/dL 2.6-3.8 Above high normal [facility] A/G RATIO 0.7 1.0-5.0 Below low normal [facility] CALCIUM 9.4 8.5-10.1 [facility] mg/dL [facility] ALTI 409 U/L 16-61 Above high normal [facility] OSMOLALITY 275 273-304 [facility] CALCULATION mos/kg [facility] ID Date Data Source [id number] 06/20/2019 08:21:00 PM EDT [facility] Name Value Range Interpretation Code Description Data Yue rce(s) Supporting Document(s ) ALCOHOL-E 235 mg/dL 0-300 [facility] THYL [facility] CLINICALLY TOXIC AT > 400 MG/DL. ID Date Data Source [id number] 06/20/2019 08:19:00 PM EDT [facility] Name Value Range Interpretation Description Data Sup porting Code Source(s) Document(s ) ACETAMINOPHEN < 2.0 10.0-30. Below low normal [facility] ug/mL 0 [facility] ID Date Data Source [id number] 06/20/2019 08:19:00 PM EDT [facility] Name Value Range Interpretation Description Data Sup porting Code Source(s) Document(s ) SALICYLATE < 1.7 2.8-20.[address] [facility] mg/dL [facility] ID Date Data Source [id number] 06/20/2019 08:19:00 PM EDT [facility] Name Value Range Interpretation Description Data Sup porting Code Source(s) Document(s ) MANUAL NEGATIVE NEGATIVE [facility] SERUM [facility] ID Date Data Source Liver 01/11/2019 06:35:00 AM EST [facility] [id number] Name Value Range Interpretation Description Data Sup porting Code Source(s) Document(s ) Aspartate 17-59 Above high <content [facility] aminotransferase normal styleCode="Bold"> Clint hs [Enzymatic Aspartate Medical activity/volume] Aminotransferase Center in Serum or Plasma (AST) </content>94 IU/L H<content styleCode="Italic s"> (17-59 IU/L)</content> Alkaline 38-126 <content [facility] phosphatase styleCode="Bold"> Con [Enzymatic Alkaline Medical activity/volume] Phosphatase (ALP) Cente r in Serum or Plasma </content>98 IU/L<content styleCode="Italic s"> (38-126 IU/L)</content> Bilirubin.total 0.2-1.3 <content Saint [Mass/volume] in styleCode="Bold"> [facility] hs Serum or Plasma Bilirubin Total Medical </content>0.7 Center MG/DL<content styleCode="Italic s"> (0.2-1.3 MG/DL)</content> Alanine 7-50 Above high <content [facility] aminotransferase normal styleCode="Bold"> [facility] hs [Enzymatic Alanine Medical activity/volume] Aminotransferase Center in Serum or Plasma (ALT) </content>96 IU/L H<content styleCode="Italic s"> (7-50 IU/L)</content> Albumin 3.5-5.0 <content [facility] [Mass/volume] in styleCode="Bold"> [facility] hs Serum or Plasma Albumin Medical </content>3.6 Center G/DL<content styleCode="Italic s"> (3.5-5.0 G/DL)</content> ID Date Data Source [id number] 01/11/2019 06:35:00 AM MELISSA Dumont [facility] 0500 Name Value Range Interpretation Description Data Sup porting Code Source(s) Document(s ) Hematocrit 41.0-53. Below low normal <content [facility] [Volume 0 styleCode="Bold Con Fraction] of ">Hematocrit Medical Blood by </content>35.7 Center Automated count % L<content styleCode="Ital ics"> (41.0-53.0 %)</content> Erythrocytes 4.4-5.9 Below low normal <content Saint [#/volume] in styleCode="Bold [facility] Blood by ">Red Blood Medical Automated count Cell Count Center </content>3.65 MCUMM L<content styleCode="Ital ics"> (4.4-5.9 MCUMM)</content > Leukocytes 4.4-11.0 <content Saint [#/volume] in styleCode="Bold Con Blood by ">White Blood Medical Automated count Cell Count Center </content>8.17 KCUMM<content styleCode="Ital ics"> (4.4-11.0 KCUMM)</content > Hemoglobin 13.5-17. Below low normal <content [facility] [Mass/volume] in 5 styleCode="Bold Con Blood ">Hemoglobin Medical </content>11.9 Center G/DL L<content styleCode="Ital ics"> (13.5-17.5 G/DL)</content> Erythrocyte mean 80.0-100 <content [facility] corpuscular .0 styleCode="Bold Con volume [Entitic ">Mean Medical volume] by Corpuscular Center Automated count Volume </content>97.8 FL<content styleCode="Ital ics"> (80.0-100.0 FL)</content> Erythrocyte mean 26.0-34. <content [facility] corpuscular 0 styleCode="Bold Con hemoglobin ">Mean Medical [Entitic mass] Corposcular Center by Automated Hemoglobin count </content>32.6 PG<content styleCode="Ital ics"> (26.0-34.0 PG)</content> Erythrocyte mean 32.0-37. <content [facility] corpuscular 0 styleCode="Bold Con hemoglobin ">Mean Corpus. Medical concentration Hgb Center [Mass/volume] by Concentration Automated count (MCHC) </content>33.3 G/DL<content styleCode="Ital ics"> (32.0-37.0 G/DL)</content> Erythrocyte 11.5-14. <content [facility] distribution 5 styleCode="Bold Con width [Ratio] by ">Red Cell Medical Automated count Distribution Center Width </content>14.5 %<content styleCode="Ital ics"> (11.5-14.5 %)</content> Platelets 130-400 Above high <content [facility] [#/volume] in normal styleCode="Bold Con Blood by ">Platelet Medical Automated count Count Center </content>455 KCUMM H<content styleCode="Ital ics"> (130-400 KCUMM)</content > Neutrophils 36-66 <content [facility] [#/volume] in styleCode="Bold Con Blood by ">Neutrophil Medical Automated count </content>60.6 Center %<content styleCode="Ital ics"> (36-66 %)</content> Platelet mean 8.0-11.0 <content [facility] volume [Entitic styleCode="Bold Con volume] in Blood ">Mean Platelet Medical by Automated Volume Center count </content>10.1 FL<content styleCode="Ital ics"> (8.0-11.0 FL)</content> UNK 1.6-7.3 <content [facility] styleCode="Bold Con ">Neutrophil Medical Count Center </content>4.95 KCUMM<content styleCode="Ital ics"> (1.6-7.3 KCUMM)</content > UNK 1.0-4.8 <content [facility] styleCode="Bold Con ">Lymphocyte Medical Count Center </content>2.37 KCUMM<content styleCode="Ital ics"> (1.0-4.8 KCUMM)</content > Monocytes 3.0-10.0 <content [facility] [#/volume] in styleCode="Bold Con Blood by ">Monocyte Medical Automated count </content>6.2 Center %<content styleCode="Ital ics"> (3.0-10.0 %)</content> Lymphocytes 24.0-44. <content [facility] [#/volume] in 0 styleCode="Bold Con Blood by ">Lymphocyte Medical Automated count </content>29.0 Center %<content styleCode="Ital ics"> (24.0-44.0 %)</content> Basophils 0.0-1.0 Above high <content [facility] [#/volume] in normal styleCode="Bold Con Blood by ">Basophil Medical Automated count </content>1.1 % Center H<content styleCode="Ital ics"> (0.0-1.0 %)</content> UNK 0.0-0.6 <content [facility] styleCode="Bold Con ">Eosinophil Medical Count Center </content>0.22 KCUMM<content styleCode="Ital ics"> (0.0-0.6 KCUMM)</content > UNK 0.2-0.9 <content [facility] styleCode="Bold Con ">Monocyte Medical Count Center </content>0.51 KCUMM<content styleCode="Ital ics"> (0.2-0.9 KCUMM)</content > Eosinophils 0-5.0 <content [facility] [#/volume] in styleCode="Bold Con Blood by ">Eosinophil Medical Automated count </content>2.7 Center %<content styleCode="Ital ics"> (0-5.0 %)</content> UNK 0 <content [facility] styleCode="Bold Con ">Nucleated Red Medical Blood Cell Center </content>0.0 /100<content styleCode="Ital ics"> (0 /100)</content> UNK 0.0 <content [facility] styleCode="Bold Con ">Nucleated Red Medical Blood Cell Center Count </content>0.00 KCUMM<content styleCode="Ital ics"> (0.0 KCUMM)</content > UNK 0.0-0.3 <content [facility] styleCode="Bold Con ">Basophil Medical Count Center </content>0.09 KCUMM<content styleCode="Ital ics"> (0.0-0.3 KCUMM)</content > UNK 0-0.1 <content [facility] styleCode="Bold Con ">Immature Medical Granulocyte Center Count </content>0.03 KCUMM<content styleCode="Ital ics"> (0-0.1 KCUMM)</content > UNK < 1 <content [facility] styleCode="Bold Con ">Immature Medical Granulocyte Center Ratio </content>0.4 %<content styleCode="Ital ics"> (< 1 %)</content> ID Date Data Source GFR(Creatinine).[id number] 01/11/2019 06:35:00 AM [facility] 0-0500 Name Value Range Interpretation Code Description Data Yue rce(s) Supporting Document(s ) UNK > 60 <content [facility] styleCode="Bold"> Medical Cent er EGFR </content>103 GFR<content styleCode="Italic s"> (> 60 GFR)</content> ID Date Data Source CHMROUTINECCDA.[id number] 01/11/2019 06:35:00 AM [facility] -0500 Name Value Range Interpretation Description Data Sup porting Code Source(s) Document(s ) UNK >= 1.0 <content [facility] styleCode="Reuben Alvarezs d">AG Ratio Medical </content>1.2 Center <content styleCode="Katie lics"> (>= 1.0 )</content> Phosphate 2.5-4.5 <content [facility] [Mass/volume] styleCode="Reuben Alvarezs in Serum or d">Phosphorus Medical Plasma </content>4.2 Center MG/DL<content styleCode="Katie lics"> (2.5-4.5 MG/DL)</conten t> UNK 2.3-3.5 <content [facility] styleCode="Reuben Alvarezs d">Globulin Medical </content>3.0 Center G/DL<content styleCode="Katie lics"> (2.3-3.5 G/DL)</content > Magnesium 1.6-2.3 <content [facility] [Mass/volume] styleCode="Reuben Alvarezs in Serum or d">Magnesium Medical Plasma </content>1.6 Center MG/DL<content styleCode="Katie lics"> (1.6-2.3 MG/DL)</conten t> Protein 6.3-8.2 <content [facility] [Mass/volume] styleCode="Reuben Andujar in Serum or d">Total Medical Plasma Protein Center </content>6.6 G/DL<content styleCode="Katie lics"> (6.3-8.2 G/DL)</content > ID Date Data Source [facility].[id number] 01/11/2019 06:35:00 AM MELISSA [facility] Name Value Range Interpretation Description Data Sup porting Code Source(s) Document(s ) Sodium 137-145 <content [facility] [Moles/volume] in styleCode="Bold"> Flex phs Serum or Plasma Sodium Medical </content>137 Center MEQ/L<content styleCode="Italic s"> (137-145 MEQ/L)</content> Potassium 3.5-5.3 <content [facility] [Moles/volume] in styleCode="Bold"> Flex phs Serum or Plasma Potassium Medical </content>4.0 Center MEQ/L<content styleCode="Italic s"> (3.5-5.3 MEQ/L)</content> Carbon dioxide, 22-30 <content [facility] total styleCode="Bold"> Con [Moles/volume] in Carbon Dioxide Medical Serum or Plasma </content>30 Center MEQ/L<content styleCode="Italic s"> (22-30 MEQ/L)</content> Chloride 98-107 <content [facility] [Moles/volume] in styleCode="Bold"> Flex phs Serum or Plasma Chloride Medical </content>101 Center MEQ/L<content styleCode="Italic s"> (98-107 MEQ/L)</content> Creatinine 0.5-1.3 <content [facility] [Mass/volume] in styleCode="Bold"> [facility] Serum or Plasma Creatinine Medical </content>0.8 Center MG/DL<content styleCode="Italic s"> (0.5-1.3 MG/DL)</content> UNK 9-20 <content [facility] styleCode="Bold"> Con BUN </content>11 Medical MG/DL<content Center styleCode="Italic s"> (9-20 MG/DL)</content> Glucose 74-106 Above high <content [facility] [Mass/volume] in normal styleCode="Bold"> [facility] Serum or Plasma Glucose Medical </content>107 Center MG/DL H<content styleCode="Italic s"> (74-106 MG/DL)</content> UNK > 60 <content [facility] styleCode="Bold"> Con EGFR Medical </content>103 Center GFR<content styleCode="Italic s"> (> 60 GFR)</content> Calcium 8.4-10. Above high <content [facility] [Mass/volume] in 2 normal styleCode="Bold"> [facility] Serum or Plasma Calcium Medical </content>10.3 Center MG/DL H<content styleCode="Italic s"> (8.4-10.2 MG/DL)</content> Aspartate 17-59 Above high <content [facility] aminotransferase normal styleCode="Bold"> [facility] [Enzymatic Aspartate Medical activity/volume] Aminotransferase Center in Serum or Plasma (AST) </content>94 IU/L H<content styleCode="Italic s"> (17-59 IU/L)</content> Alanine 7-50 Above high <content [facility] aminotransferase normal styleCode="Bold"> [facility] [Enzymatic Alanine Medical activity/volume] Aminotransferase Center in Serum or Plasma (ALT) </content>96 IU/L H<content styleCode="Italic s"> (7-50 IU/L)</content> Alkaline 38-126 <content [facility] phosphatase styleCode="Bold"> [facility] [Enzymatic Alkaline Medical activity/volume] Phosphatase (ALP) Cente r in Serum or Plasma </content>98 IU/L<content styleCode="Italic s"> (38-126 IU/L)</content> Bilirubin.total 0.2-1.3 <content [facility] [Mass/volume] in styleCode="Bold"> [facility] Serum or Plasma Bilirubin Total Medical </content>0.7 Center MG/DL<content styleCode="Italic s"> (0.2-1.3 MG/DL)</content> Albumin 3.5-5.0 <content [facility] [Mass/volume] in styleCode="Bold"> [facility] Serum or Plasma Albumin Medical </content>3.6 Center G/DL<content styleCode="Italic s"> (3.5-5.0 G/DL)</content> ID Date Data Source Liver 01/10/2019 06:20:00 AM EST [facility] Profile.[id number] Name Value Range Interpretation Description Data Sup porting Code Source(s) Document(s ) Alanine 7-50 Above high <content [facility] aminotransferase normal styleCode="Bold"> [facility] [Enzymatic Alanine Medical activity/volume] Aminotransferase Center in Serum or Plasma (ALT) </content>98 IU/L H<content styleCode="Italic s"> (7-50 IU/L)</content> Aspartate 17-59 Above high <content [facility] aminotransferase normal styleCode="Bold"> [facility] [Enzymatic Aspartate Medical activity/volume] Aminotransferase Center in Serum or Plasma (AST) </content>88 IU/L H<content styleCode="Italic s"> (17-59 IU/L)</content> Albumin 3.5-5.0 <content [facility] [Mass/volume] in styleCode="Bold"> [facility] Serum or Plasma Albumin Medical </content>3.6 Center G/DL<content styleCode="Italic s"> (3.5-5.0 G/DL)</content> Bilirubin.total 0.2-1.3 <content [facility] [Mass/volume] in styleCode="Bold"> [facility] Serum or Plasma Bilirubin Total Medical </content>1.2 Center MG/DL<content styleCode="Italic s"> (0.2-1.3 MG/DL)</content> Alkaline 38-126 <content [facility] phosphatase styleCode="Bold"> Con [Enzymatic Alkaline Medical activity/volume] Phosphatase (ALP) Cente r in Serum or Plasma </content>107 IU/L<content styleCode="Italic s"> (38-126 IU/L)</content> ID Date Data Source HematologyRou.[id number] 01/10/2019 06:20:00 AM MELISSA Dum[facility] 0500 Name Value Range Interpretation Description Data Sup porting Code Source(s) Document(s ) Erythrocytes 4.4-5.9 Below low normal <content [facility] [#/volume] in styleCode="Bold Con Blood by ">Red Blood Medical Automated count Cell Count Center </content>3.52 MCUMM L<content styleCode="Ital ics"> (4.4-5.9 MCUMM)</content > Hemoglobin 13.5-17. Below low normal <content [facility] [Mass/volume] in 5 styleCode="Bold Con Blood ">Hemoglobin Medical </content>11.5 Center G/DL L<content styleCode="Ital ics"> (13.5-17.5 G/DL)</content> Hematocrit 41.0-53. Below low normal <content [facility] [Volume 0 styleCode="Bold Con Fraction] of ">Hematocrit Medical Blood by </content>34.4 Center Automated count % L<content styleCode="Ital ics"> (41.0-53.0 %)</content> Leukocytes 4.4-11.0 <content [facility] [#/volume] in styleCode="Bold Con Blood by ">White Blood Medical Automated count Cell Count Center </content>8.51 KCUMM<content styleCode="Ital ics"> (4.4-11.0 KCUMM)</content > Erythrocyte mean 80.0-100 <content [facility] corpuscular .0 styleCode="Bold Con volume [Entitic ">Mean Medical volume] by Corpuscular Center Automated count Volume </content>97.7 FL<content styleCode="Ital ics"> (80.0-100.0 FL)</content> Erythrocyte mean 32.0-37. <content [facility] corpuscular 0 styleCode="Bold Con hemoglobin ">Mean Corpus. Medical concentration Hgb Center [Mass/volume] by Concentration Automated count (MCHC) </content>33.4 G/DL<content styleCode="Ital ics"> (32.0-37.0 G/DL)</content> Erythrocyte mean 26.0-34. <content [facility] corpuscular 0 styleCode="Bold Con hemoglobin ">Mean Medical [Entitic mass] Corposcular Center by Automated Hemoglobin count </content>32.7 PG<content styleCode="Ital ics"> (26.0-34.0 PG)</content> Neutrophils 36-66 <content [facility] [#/volume] in styleCode="Bold Con Blood by ">Neutrophil Medical Automated count </content>56.0 Center %<content styleCode="Ital ics"> (36-66 %)</content> Platelet mean 8.0-11.0 <content [facility] volume [Entitic styleCode="Bold Con volume] in Blood ">Mean Platelet Medical by Automated Volume Center count </content>9.6 FL<content styleCode="Ital ics"> (8.0-11.0 FL)</content> Platelets 130-400 Above high <content [facility] [#/volume] in normal styleCode="Bold Con Blood by ">Platelet Medical Automated count Count Center </content>431 KCUMM H<content styleCode="Ital ics"> (130-400 KCUMM)</content > Erythrocyte 11.5-14. <content [facility] distribution 5 styleCode="Bold Con width [Ratio] by ">Red Cell Medical Automated count Distribution Center Width </content>14.5 %<content styleCode="Ital ics"> (11.5-14.5 %)</content> UNK 1.0-4.8 <content [facility] styleCode="Bold Con ">Lymphocyte Medical Count Center </content>2.82 KCUMM<content styleCode="Ital ics"> (1.0-4.8 KCUMM)</content > UNK 1.6-7.3 <content [facility] styleCode="Bold Con ">Neutrophil Medical Count Center </content>4.76 KCUMM<content styleCode="Ital ics"> (1.6-7.3 KCUMM)</content > Monocytes 3.0-10.0 <content [facility] [#/volume] in styleCode="Bold Con Blood by ">Monocyte Medical Automated count </content>7.4 Center %<content styleCode="Ital ics"> (3.0-10.0 %)</content> Lymphocytes 24.0-44. <content [facility] [#/volume] in 0 styleCode="Bold Con Blood by ">Lymphocyte Medical Automated count </content>33.1 Center %<content styleCode="Ital ics"> (24.0-44.0 %)</content> Eosinophils 0-5.0 <content [facility] [#/volume] in styleCode="Bold Con Blood by ">Eosinophil Medical Automated count </content>2.2 Center %<content styleCode="Ital ics"> (0-5.0 %)</content> UNK 0.2-0.9 <content [facility] styleCode="Bold Con ">Monocyte Medical Count Center </content>0.63 KCUMM<content styleCode="Ital ics"> (0.2-0.9 KCUMM)</content > UNK 0.0-0.6 <content [facility] styleCode="Bold Con ">Eosinophil Medical Count Center </content>0.19 KCUMM<content styleCode="Ital ics"> (0.0-0.6 KCUMM)</content > Basophils 0.0-1.0 Above high <content [facility] [#/volume] in normal styleCode="Bold [facility] Blood by ">Basophil Medical Automated count </content>1.1 % Center H<content styleCode="Ital ics"> (0.0-1.0 %)</content> UNK 0.0 <content [facility] styleCode="Bold Con ">Nucleated Red Medical Blood Cell Center Count </content>0.00 KCUMM<content styleCode="Ital ics"> (0.0 KCUMM)</content > UNK 0.0-0.3 <content [facility] styleCode="Bold Con ">Basophil Medical Count Center </content>0.09 KCUMM<content styleCode="Ital ics"> (0.0-0.3 KCUMM)</content > UNK 0 <content [facility] styleCode="Bold Con ">Nucleated Red Medical Blood Cell Center </content>0.0 /100<content styleCode="Ital ics"> (0 /100)</content> UNK 0-0.1 <content [facility] styleCode="Bold Con ">Immature Medical Granulocyte Center Count </content>0.02 KCUMM<content styleCode="Ital ics"> (0-0.1 KCUMM)</content > UNK < 1 <content [facility] styleCode="Bold Con ">Immature Medical Granulocyte Center Ratio </content>0.2 %<content styleCode="Ital ics"> (< 1 %)</content> ID Date Data Source GFR(Creatinine).[id number] 01/10/2019 06:20:00 AM MELISSA Dumont [facility] 0-0500 Name Value Range Interpretation Code Description Data Yue rce(s) Supporting Document(s ) UNK > 60 <content [facility] styleCode="Bold"> Medical Cent er EGFR </content>103 GFR<content styleCode="Italic s"> (> 60 GFR)</content> ID Date Data Source Coagulation 01/10/2019 06:20:00 AM [facility] Rout.[id number] EST Name Value Range Interpretation Description Data Sup porting Code Source(s) Document(s ) INR in 0.80-1.2 <content [facility] Platelet poor 0 styleCode="Bold" [facility] plasma by >INR Medical Coagulation </content>0.97 Center assay #<content styleCode="Itali cs"> (0.80-1.20 #)</content> aPTT in 25.1-36. <content [facility] Platelet poor 5 styleCode="Bold" [facility] plasma by >Partial Medical Coagulation Thromboplastin Center assay Time </content>28.4 SEC<content styleCode="Itali cs"> (25.1-36.5 SEC)</content> UNK 9.0-13.0 <content [facility] styleCode="Bold" Con >Protime Medical </content>10.8 Center SEC<content styleCode="Itali cs"> (9.0-13.0 SEC)</content> ID Date Data Source MROUTINECCDA.[id number] 01/10/2019 06:20:00 AM EST Tim nt [facility] -0500 Name Value Range Interpretation Description Data Sup porting Code Source(s) Document(s ) UNK 2.3-3.5 <content [facility] styleCode="Reuben Con d">Globulin Medical </content>3.2 Center G/DL<content styleCode="Katie lics"> (2.3-3.5 G/DL)</content > Lipase 23-300 Above high normal <content [facility] [Enzymatic styleCode="Reuben Con activity/volu d">Lipase Medical me] in Serum </content>458 Center or Plasma IU/L H<content styleCode="Katie lics"> (23-300 IU/L)</content > UNK 30-110 <content [facility] styleCode="Reuben Con d">Amylase Medical </content>50 Center IU/L<content styleCode="Katie lics"> (30-110 IU/L)</content > UNK >= 1.0 <content [facility] styleCode="Reuben Alvarezs d">AG Ratio Medical </content>1.1 Center <content styleCode="Katie lics"> (>= 1.0 )</content> Phosphate 2.5-4.5 <content [facility] [Mass/volume] styleCode="Reuben Alvarezs in Serum or d">Phosphorus Medical Plasma </content>4.1 Center MG/DL<content styleCode="Katie lics"> (2.5-4.5 MG/DL)</conten t> Magnesium 1.6-2.3 Below low normal <content [facility] [Mass/volume] styleCode="Reuben Alvarezs in Serum or d">Magnesium Medical Plasma </content>1.4 Center MG/DL L<content styleCode="Katie lics"> (1.6-2.3 MG/DL)</conten t> Protein 6.3-8.2 <content [facility] [Mass/volume] styleCode="Reuben Alvarezs in Serum or d">Total Medical Plasma Protein Center </content>6.8 G/DL<content styleCode="Katie lics"> (6.3-8.2 G/DL)</content > ID Date Data Source [facility].[id number] 01/10/2019 06:20:00 AM EST [facility] Name Value Range Interpretation Description Data Sup porting Code Source(s) Document(s ) Sodium 137-145 <content [facility] [Moles/volume] in styleCode="Bold"> [facility] Serum or Plasma Sodium Medical </content>138 Center MEQ/L<content styleCode="Italic s"> (137-145 MEQ/L)</content> Chloride 98-107 <content [facility] [Moles/volume] in styleCode="Bold"> [facility] Serum or Plasma Chloride Medical </content>100 Center MEQ/L<content styleCode="Italic s"> (98-107 MEQ/L)</content> Carbon dioxide, 22-30 Above high <content [facility] total normal styleCode="Bold"> Con [Moles/volume] in Carbon Dioxide Medical Serum or Plasma </content>31 Center MEQ/L H<content styleCode="Italic s"> (22-30 MEQ/L)</content> Potassium 3.5-5.3 Below low <content [facility] [Moles/volume] in normal styleCode="Bold"> Flex phs Serum or Plasma Potassium Medical </content>3.3 Center MEQ/L L<content styleCode="Italic s"> (3.5-5.3 MEQ/L)</content> UNK 9-20 Below low <content [facility] normal styleCode="Bold"> Con BUN </content>8 Medical MG/DL L<content Center styleCode="Italic s"> (9-20 MG/DL)</content> Calcium 8.4-10. <content [facility] [Mass/volume] in 2 styleCode="Bold"> [facility] Serum or Plasma Calcium Medical </content>10.2 Center MG/DL<content styleCode="Italic s"> (8.4-10.2 MG/DL)</content> Aspartate 17-59 Above high <content [facility] aminotransferase normal styleCode="Bold"> [facility] [Enzymatic Aspartate Medical activity/volume] Aminotransferase Center in Serum or Plasma (AST) </content>88 IU/L H<content styleCode="Italic s"> (17-59 IU/L)</content> UNK > 60 <content [facility] styleCode="Bold"> Con EGFR Medical </content>103 Center GFR<content styleCode="Italic s"> (> 60 GFR)</content> Creatinine 0.5-1.3 <content [facility] [Mass/volume] in styleCode="Bold"> [facility] Serum or Plasma Creatinine Medical </content>0.8 Center MG/DL<content styleCode="Italic s"> (0.5-1.3 MG/DL)</content> Glucose 74-106 <content [facility] [Mass/volume] in styleCode="Bold"> [facility] Serum or Plasma Glucose Medical </content>100 Center MG/DL<content styleCode="Italic s"> (74-106 MG/DL)</content> Alanine 7-50 Above high <content [facility] aminotransferase normal styleCode="Bold"> [facility] [Enzymatic Alanine Medical activity/volume] Aminotransferase Center in Serum or Plasma (ALT) </content>98 IU/L H<content styleCode="Italic s"> (7-50 IU/L)</content> Alkaline 38-126 <content [facility] phosphatase styleCode="Bold"> [facility] [Enzymatic Alkaline Medical activity/volume] Phosphatase (ALP) Cente r in Serum or Plasma </content>107 IU/L<content styleCode="Italic s"> (38-126 IU/L)</content> Bilirubin.total 0.2-1.3 <content [facility] [Mass/volume] in styleCode="Bold"> [facility] Serum or Plasma Bilirubin Total Medical </content>1.2 Center MG/DL<content styleCode="Italic s"> (0.2-1.3 MG/DL)</content> Albumin 3.5-5.0 <content [facility] [Mass/volume] in styleCode="Bold"> [facility] Serum or Plasma Albumin Medical </content>3.6 Center G/DL<content styleCode="Italic s"> (3.5-5.0 G/DL)</content> ID Date Data Source Urinalysis.[id number] 01/08/2019 11:10:00 PM EST Tim [facility] 0 Name Value Range Interpretation Description Data Sup porting Code Source(s) Document(s ) Color of Urine YELLOW <content [facility] styleCode="Reuben Alvarezs d">Color, Medical Urine Center </content>YELL OW <content styleCode="Katie lics"> (YELLOW )</content> Glucose NEGATIVE <content [facility] [Mass/volume] styleCode="Reuben Andujar in Urine by d">Urine Medical Test strip Glucose Center </content>NEGA TIVE MG/DL<content styleCode="Katie lics"> (NEGATIVE MG/DL)</conten t> UNK CLEAR <content [facility] styleCode="Reuben Alvarezs d">Urine Medical Clarity Center </content>CLARK R <content styleCode="Katie lics"> (CLEAR )</content> UNK NEGATIVE <content [facility] styleCode="Reuben Con d">Urine Medical Bilirubin Center </content>NEGA TIVE <content styleCode="Katie lics"> (NEGATIVE )</content> Hemoglobin NEGATIVE <content [facility] [Presence] in styleCode="Reuben Alvarezs Urine by Test d">Urine Blood Medical strip </content>NEGA Center TIVE <content styleCode="Katie lics"> (NEGATIVE )</content> Specific 1.015-1.02 <content [facility] gravity of 5 styleCode="Reuben Alvarezs Urine by Test d">Urine Medical strip Specific Center [place] </content>1.02 0 <content styleCode="Katie lics"> (1.015-1.025 )</content> Ketones NEGATIVE <content [facility] [Mass/volume] styleCode="Reuben Con in Urine by d">Urine Medical Test strip Ketone Center </content>NEGA TIVE MG/DL<content styleCode="Katie lics"> (NEGATIVE MG/DL)</conten t> Urobilinogen 0.2-1.0 <content [facility] [Units/volume] styleCode="Reuben Con in Urine by d">Urine Medical Test strip Urobilinogen Center </content>0.2 MG/DL<content styleCode="Katie lics"> (0.2-1.0 MG/DL)</conten t> pH of Urine by 4.5-8.0 <content [facility] Test strip styleCode="Reuben Con d">Urine pH Medical </content>5.0 Center <content styleCode="Katie lics"> (4.5-8.0 )</content> Protein NEGATIVE <content [facility] [Mass/volume] styleCode="Reuben Con in Urine by d">Urine Medical Test strip Protein Center </content>NEGA TIVE MG/DL<content styleCode="Katie lics"> (NEGATIVE MG/DL)</conten t> Leukocyte NEGATIVE <content [facility] esterase styleCode="Reuben Con [Presence] in d">Urine Medical Urine by Test Leukocyte Center strip </content>NEGA TIVE <content styleCode="Katie lics"> (NEGATIVE )</content> Nitrite NEGATIVE <content [facility] [Presence] in styleCode="Reuben Andujar Urine by Test d">Urine Medical strip Nitrite Center </content>NEGA TIVE <content styleCode="Katie lics"> (NEGATIVE )</content> ID Date Data Source CHMROUTINECCDA.[id number] 01/08/2019 11:10:00 PM EST Tim [facility] -0500 Name Value Range Interpretation Description Data Sup porting Code Source(s) Document(s ) Cannabinoids <content [facility] [Presence] in styleCode="Reuben Con Urine by Screen d">Cannabinoid Medical method >50 ng/mL s Center </content>PRES UMPTIVE POSITIVE NG/ML (Reference Range: not available)<br/ > ID Date Data Source Liver 01/08/2019 01:23:00 PM [facility] Profile.[id number] Name Value Range Interpretation Description Data Sup porting Code Source(s) Document(s ) Alkaline 38-126 Above high <content [facility] phosphatase normal styleCode="Bold"> Con [Enzymatic Alkaline Medical activity/volume] Phosphatase (ALP) Cente r in Serum or Plasma </content>131 IU/L H<content styleCode="Italic s"> (38-126 IU/L)</content> Aspartate 17-59 Above high <content [facility] aminotransferase normal styleCode="Bold"> [facility] [Enzymatic Aspartate Medical activity/volume] Aminotransferase Center in Serum or Plasma (AST) </content>106 IU/L H<content styleCode="Italic s"> (17-59 IU/L)</content> Alanine 7-50 Above high <content [facility] aminotransferase normal styleCode="Bold"> [facility] [Enzymatic Alanine Medical activity/volume] Aminotransferase Center in Serum or Plasma (ALT) </content>113 IU/L H<content styleCode="Italic s"> (7-50 IU/L)</content> Albumin 3.5-5.0 <content [facility] [Mass/volume] in styleCode="Bold"> [facility] Serum or Plasma Albumin Medical </content>4.3 Center G/DL<content styleCode="Italic s"> (3.5-5.0 G/DL)</content> Bilirubin.total 0.2-1.3 <content [facility] [Mass/volume] in styleCode="Bold"> [facility] Serum or Plasma Bilirubin Total Medical </content>0.5 Center MG/DL<content styleCode="Italic s"> (0.2-1.3 MG/DL)</content> UNK 0.0-0.3 <content [facility] styleCode="Bold"> [facility] Bilirubin, Direct Medical </content>< 0.2 Center MG/DL<content styleCode="Italic s"> (0.0-0.3 MG/DL)</content> ID Date Data Source HematologyRou.[id number] 01/08/2019 01:23:00 PM MELISSA Dumont nt [facility] 0500 Name Value Range Interpretation Description Data Sup porting Code Source(s) Document(s ) Hemoglobin 13.5-17. Below low normal <content [facility] [Mass/volume] in 5 styleCode="Bold Con Blood ">Hemoglobin Medical </content>12.6 Center G/DL L<content styleCode="Ital ics"> (13.5-17.5 G/DL)</content> Leukocytes 4.4-11.0 <content [facility] [#/volume] in styleCode="Bold Con Blood by ">White Blood Medical Automated count Cell Count Center </content>7.23 KCUMM<content styleCode="Ital ics"> (4.4-11.0 KCUMM)</content > Erythrocytes 4.4-5.9 Below low normal <content [facility] [#/volume] in styleCode="Bold Con Blood by ">Red Blood Medical Automated count Cell Count Center </content>3.86 MCUMM L<content styleCode="Ital ics"> (4.4-5.9 MCUMM)</content > Hematocrit 41.0-53. Below low normal <content [facility] [Volume 0 styleCode="Bold Con Fraction] of ">Hematocrit Medical Blood by </content>36.7 Center Automated count % L<content styleCode="Ital ics"> (41.0-53.0 %)</content> Erythrocyte mean 26.0-34. <content [facility] corpuscular 0 styleCode="Bold Con hemoglobin ">Mean Medical [Entitic mass] Corposcular Center by Automated Hemoglobin count </content>32.6 PG<content styleCode="Ital ics"> (26.0-34.0 PG)</content> Erythrocyte mean 80.0-100 <content [facility] corpuscular .0 styleCode="Bold Con volume [Entitic ">Mean Medical volume] by Corpuscular Center Automated count Volume </content>95.1 FL<content styleCode="Ital ics"> (80.0-100.0 FL)</content> Erythrocyte 11.5-14. Above high <content [facility] distribution 5 normal styleCode="Bold Con width [Ratio] by ">Red Cell Medical Automated count Distribution Center Width </content>15.4 % H<content styleCode="Ital ics"> (11.5-14.5 %)</content> Platelets 130-400 Above high <content [facility] [#/volume] in normal styleCode="Bold Con Blood by ">Platelet Medical Automated count Count Center </content>456 KCUMM H<content styleCode="Ital ics"> (130-400 KCUMM)</content > Erythrocyte mean 32.0-37. <content [facility] corpuscular 0 styleCode="Bold Con hemoglobin ">Mean Corpus. Medical concentration Hgb Center [Mass/volume] by Concentration Automated count (MCHC) </content>34.3 G/DL<content styleCode="Ital ics"> (32.0-37.0 G/DL)</content> UNK 0.0 <content [facility] styleCode="Bold Con ">Nucleated Red Medical Blood Cell Center Count </content>0.00 KCUMM<content styleCode="Ital ics"> (0.0 KCUMM)</content > UNK 0 <content Saint styleCode="Bold Con ">Nucleated Red Medical Blood Cell Center </content>0.0 /100<content styleCode="Ital ics"> (0 /100)</content> Platelet mean 8.0-11.0 <content [facility] volume [Entitic styleCode="Bold Con volume] in Blood ">Mean Platelet Medical by Automated Volume Center count </content>9.6 FL<content styleCode="Ital ics"> (8.0-11.0 FL)</content> ID Date Data Source GFR(Creatinine).[id number] 01/08/2019 01:23:00 PM EST [facility] 0-0500 Name Value Range Interpretation Code Description Data Yue rce(s) Supporting Document(s ) UNK > 60 <content [facility] styleCode="Bold"> Medical Cent er EGFR </content>103 GFR<content styleCode="Italic s"> (> 60 GFR)</content> ID Date Data Source BMP.[id number] 01/08/2019 01:23:00 PM EST [facility] Name Value Range Interpretation Description Data Sup porting Code Source(s) Document(s ) Sodium 137-145 <content [facility] [Moles/volume] in styleCode="Bold"> Flex phs Serum or Plasma Sodium Medical </content>140 Center MEQ/L<content styleCode="Italic s"> (137-145 MEQ/L)</content> Potassium 3.5-5.3 <content [facility] [Moles/volume] in styleCode="Bold"> Flex [facility] [place] Serum or Plasma Potassium Medical </content>3.8 Center MEQ/L<content styleCode="Italic s"> (3.5-5.3 MEQ/L)</content> Chloride 98-107 <content [facility] [Moles/volume] in styleCode="Bold"> Flex phs Serum or Plasma Chloride Medical </content>100 Center MEQ/L<content styleCode="Italic s"> (98-107 MEQ/L)</content> Glucose 74-106 Above high <content [facility] [Mass/volume] in normal styleCode="Bold"> Clint hs Serum or Plasma Glucose Medical </content>113 Center MG/DL H<content styleCode="Italic s"> (74-106 MG/DL)</content> Carbon dioxide, 22-30 <content [facility] total styleCode="Bold"> Con [Moles/volume] in Carbon Dioxide Medical Serum or Plasma </content>25 Center MEQ/L<content styleCode="Italic s"> (22-30 MEQ/L)</content> UNK 9-20 <content [facility] styleCode="Bold"> Con BUN </content>10 Medical MG/DL<content Center styleCode="Italic s"> (9-20 MG/DL)</content> Creatinine 0.5-1.3 <content [facility] [Mass/volume] in styleCode="Bold"> Clint hs Serum or Plasma Creatinine Medical </content>0.8 Center MG/DL<content styleCode="Italic s"> (0.5-1.3 MG/DL)</content> Aspartate 17-59 Above high <content [facility] aminotransferase normal styleCode="Bold"> Clint hs [Enzymatic Aspartate Medical activity/volume] Aminotransferase Center in Serum or Plasma (AST) </content>106 IU/L H<content styleCode="Italic s"> (17-59 IU/L)</content> UNK > 60 <content [facility] styleCode="Bold"> Con EGFR Medical </content>103 Center GFR<content styleCode="Italic s"> (> 60 GFR)</content> Alanine 7-50 Above high <content [facility] aminotransferase normal styleCode="Bold"> Clint hs [Enzymatic Alanine Medical activity/volume] Aminotransferase Center in Serum or Plasma (ALT) </content>113 IU/L H<content styleCode="Italic s"> (7-50 IU/L)</content> Calcium 8.4-10. <content [facility] [Mass/volume] in 2 styleCode="Bold"> Clint hs Serum or Plasma Calcium Medical </content>10.2 Center MG/DL<content styleCode="Italic s"> (8.4-10.2 MG/DL)</content> Alkaline 38-126 Above high <content [facility] phosphatase normal styleCode="Bold"> Con [Enzymatic Alkaline Medical activity/volume] Phosphatase (ALP) Cente r in Serum or Plasma </content>131 IU/L H<content styleCode="Italic s"> (38-126 IU/L)</content> Albumin 3.5-5.0 <content [facility] [Mass/volume] in styleCode="Bold"> Clint hs Serum or Plasma Albumin Medical </content>4.3 Center G/DL<content styleCode="Italic s"> (3.5-5.0 G/DL)</content> Bilirubin.total 0.2-1.3 <content [facility] [Mass/volume] in styleCode="Bold"> Clint hs Serum or Plasma Bilirubin Total Medical </content>0.5 Center MG/DL<content styleCode="Italic s"> (0.2-1.3 MG/DL)</content> ID Date Data Source Liver 01/03/2019 06:52:00 AM EDT [facility] Profile.[id number] Name Value Range Interpretation Description Data Sup porting Code Source(s) Document(s ) Alanine 7-50 Above high <content [facility] aminotransferase normal styleCode="Bold"> Clint hs [Enzymatic Alanine Medical activity/volume] Aminotransferase Center in Serum or Plasma (ALT) </content>107 IU/L H<content styleCode="Italic s"> (7-50 IU/L)</content> Aspartate 17-59 Above high <content [facility] aminotransferase normal styleCode="Bold"> Clint hs [Enzymatic Aspartate Medical activity/volume] Aminotransferase Center in Serum or Plasma (AST) </content>106 IU/L H<content styleCode="Italic s"> (17-59 IU/L)</content> Alkaline 38-126 <content [facility] phosphatase styleCode="Bold"> Con [Enzymatic Alkaline Medical activity/volume] Phosphatase (ALP) Cente r in Serum or Plasma </content>114 IU/L<content styleCode="Italic s"> (38-126 IU/L)</content> Albumin 3.5-5.0 <content [facility] [Mass/volume] in styleCode="Bold"> Clint hs Serum or Plasma Albumin Medical </content>3.6 Center G/DL<content styleCode="Italic s"> (3.5-5.0 G/DL)</content> Bilirubin.total 0.2-1.3 <content [facility] [Mass/volume] in styleCode="Bold"> Clint hs Serum or Plasma Bilirubin Total Medical </content>1.3 Center MG/DL<content styleCode="Italic s"> (0.2-1.3 MG/DL)</content> ID Date Data Source HematologyRou.[id number] 01/03/2019 06:52:00 [facility] Name Value Range Interpretation Description Data Sup porting Code Source(s) Document(s ) Leukocytes 4.4-11.0 <content [facility] [#/volume] in styleCode="Bold Con Blood by ">White Blood Medical Automated count Cell Count Center </content>8.11 KCUMM<content styleCode="Ital ics"> (4.4-11.0 KCUMM)</content > Erythrocytes 4.4-5.9 Below low normal <content [facility] [#/volume] in styleCode="Bold Con Blood by ">Red Blood Medical Automated count Cell Count Center </content>3.68 MCUMM L<content styleCode="Ital ics"> (4.4-5.9 MCUMM)</content > Hematocrit 41.0-53. Below low normal <content [facility] [Volume 0 styleCode="Bold Con Fraction] of ">Hematocrit Medical Blood by </content>35.2 Center Automated count % L<content styleCode="Ital ics"> (41.0-53.0 %)</content> Hemoglobin 13.5-17. Below low normal <content [facility] [Mass/volume] in 5 styleCode="Bold Con Blood ">Hemoglobin Medical </content>11.9 Center G/DL L<content styleCode="Ital ics"> (13.5-17.5 G/DL)</content> Erythrocyte mean 80.0-100 <content [facility] corpuscular .0 styleCode="Bold Con volume [Entitic ">Mean Medical volume] by Corpuscular Center Automated count Volume </content>95.7 FL<content styleCode="Ital ics"> (80.0-100.0 FL)</content> Erythrocyte mean 32.0-37. <content [facility] corpuscular 0 styleCode="Bold Con hemoglobin ">Mean Corpus. Medical concentration Hgb Center [Mass/volume] by Concentration Automated count (MCHC) </content>33.8 G/DL<content styleCode="Ital ics"> (32.0-37.0 G/DL)</content> Erythrocyte mean 26.0-34. <content [facility] corpuscular 0 styleCode="Bold Con hemoglobin ">Mean Medical [Entitic mass] Corposcular Center by Automated Hemoglobin count </content>32.3 PG<content styleCode="Ital ics"> (26.0-34.0 PG)</content> Erythrocyte 11.5-14. Above high <content [facility] distribution 5 normal styleCode="Bold Con width [Ratio] by ">Red Cell Medical Automated count Distribution Center Width </content>15.3 % H<content styleCode="Ital ics"> (11.5-14.5 %)</content> Neutrophils 36-66 <content [facility] [#/volume] in styleCode="Bold Con Blood by ">Neutrophil Medical Automated count </content>52.5 Center %<content styleCode="Ital ics"> (36-66 %)</content> Platelet mean 8.0-11.0 <content [facility] volume [Entitic styleCode="Bold Con volume] in Blood ">Mean Platelet Medical by Automated Volume Center count </content>10.0 FL<content styleCode="Ital ics"> (8.0-11.0 FL)</content> Platelets 130-400 <content [facility] [#/volume] in styleCode="Bold Con Blood by ">Platelet Medical Automated count Count Center </content>209 KCUMM<content styleCode="Ital ics"> (130-400 KCUMM)</content > UNK 1.0-4.8 <content [facility] styleCode="Bold Con ">Lymphocyte Medical Count Center </content>2.56 KCUMM<content styleCode="Ital ics"> (1.0-4.8 KCUMM)</content > UNK 1.6-7.3 <content [facility] styleCode="Bold Con ">Neutrophil Medical Count Center </content>4.26 KCUMM<content styleCode="Ital ics"> (1.6-7.3 KCUMM)</content > Lymphocytes 24.0-44. <content [facility] [#/volume] in 0 styleCode="Bold Con Blood by ">Lymphocyte Medical Automated count </content>31.6 Center %<content styleCode="Ital ics"> (24.0-44.0 %)</content> UNK 0.0-0.6 <content [facility] styleCode="Bold Con ">Eosinophil Medical Count Center </content>0.27 KCUMM<content styleCode="Ital ics"> (0.0-0.6 KCUMM)</content > Monocytes 3.0-10.0 Above high <content [facility] [#/volume] in normal styleCode="Bold Con Blood by ">Monocyte Medical Automated count </content>12.0 Center % H<content styleCode="Ital ics"> (3.0-10.0 %)</content> UNK 0.2-0.9 Above high <content [facility] normal styleCode="Bold Con ">Monocyte Medical Count Center </content>0.97 KCUMM H<content styleCode="Ital ics"> (0.2-0.9 KCUMM)</content > Eosinophils 0-5.0 <content [facility] [#/volume] in styleCode="Bold Con Blood by ">Eosinophil Medical Automated count </content>3.3 Center %<content styleCode="Ital ics"> (0-5.0 %)</content> UNK 0 <content [facility] styleCode="Bold Con ">Nucleated Red Medical Blood Cell Center </content>0.0 /100<content styleCode="Ital ics"> (0 /100)</content> UNK 0.0-0.3 <content [facility] styleCode="Bold Con ">Basophil Medical Count Center </content>0.03 KCUMM<content styleCode="Ital ics"> (0.0-0.3 KCUMM)</content > Basophils 0.0-1.0 <content [facility] [#/volume] in styleCode="Bold Con Blood by ">Basophil Medical Automated count </content>0.4 Center %<content styleCode="Ital ics"> (0.0-1.0 %)</content> UNK 0-0.1 <content [facility] styleCode="Bold Con ">Immature Medical Granulocyte Center Count </content>0.02 KCUMM<content styleCode="Ital ics"> (0-0.1 KCUMM)</content > UNK < 1 <content [facility] styleCode="Bold Con ">Immature Medical Granulocyte Center Ratio </content>0.2 %<content styleCode="Ital ics"> (< 1 %)</content> UNK 0.0 <content [facility] styleCode="Bold Con ">Nucleated Red Medical Blood Cell Center Count </content>0.00 KCUMM<content styleCode="Ital ics"> (0.0 KCUMM)</content > ID Date Data Source GFR(Creatinine).[id number] 01/03/2019 06:52:00 AM EDT [facility] 0-0400 Name Value Range Interpretation Code Description Data Yue rce(s) Supporting Document(s ) UNK > 60 <content [facility] styleCode="Bold"> Medical Cent er EGFR </content>120 GFR<content styleCode="Italic s"> (> 60 GFR)</content> ID Date Data Source CHMROUTINECCDA.[id number] 01/03/2019 06:52:00 AM EDT [facility] -0400 Name Value Range Interpretation Description Data Sup porting Code Source(s) Document(s ) UNK >= 1.0 <content [facility] styleCode="Reuben Con d">AG Ratio Medical </content>1.1 Center <content styleCode="Katie lics"> (>= 1.0 )</content> Lipase 23-300 Above upper panic <content Saint [Enzymatic limits styleCode="Reuben Con activity/volu d">Lipase Medical me] in Serum </content><con Center or Plasma tent styleCode="Reuben d">1237 IU/L HH</content><c ontent styleCode="Katie lics"> (23-300 IU/L)</content > UNK 2.3-3.5 <content [facility] styleCode="Reuben Con d">Globulin Medical </content>3.2 Center G/DL<content styleCode="Katie lics"> (2.3-3.5 G/DL)</content > Phosphate 2.5-4.5 <content [facility] [Mass/volume] styleCode="Reuben Con in Serum or d">Phosphorus Medical Plasma </content>3.8 Center MG/DL<content styleCode="Katie lics"> (2.5-4.5 MG/DL)</conten t> Magnesium 1.6-2.3 <content [facility] [Mass/volume] styleCode="Reuben Con in Serum or d">Magnesium Medical Plasma </content>1.6 Center MG/DL<content styleCode="Katie lics"> (1.6-2.3 MG/DL)</conten t> Protein 6.3-8.2 <content [facility] [Mass/volume] styleCode="Reuben Con in Serum or d">Total Medical Plasma Protein Center </content>6.8 G/DL<content styleCode="Katie lics"> (6.3-8.2 G/DL)</content > ID Date Data Source [facility].[id number] 01/03/2019 06:52:00 AM EDT [facility] Name Value Range Interpretation Description Data Sup porting Code Source(s) Document(s ) Sodium 137-145 Below low <content [facility] [Moles/volume] in normal styleCode="Bold"> Flex phs Serum or Plasma Sodium Medical </content>136 Center MEQ/L L<content styleCode="Italic s"> (137-145 MEQ/L)</content> Creatinine 0.5-1.3 <content [facility] [Mass/volume] in styleCode="Bold"> Lcint hs Serum or Plasma Creatinine Medical </content>0.7 Center MG/DL<content styleCode="Italic s"> (0.5-1.3 MG/DL)</content> Potassium 3.5-5.3 <content [facility] [Moles/volume] in styleCode="Bold"> Flex phs Serum or Plasma Potassium Medical </content>4.6 Center MEQ/L<content styleCode="Italic s"> (3.5-5.3 MEQ/L)</content> Chloride 98-107 <content [facility] [Moles/volume] in styleCode="Bold"> Flex phs Serum or Plasma Chloride Medical </content>105 Center MEQ/L<content styleCode="Italic s"> (98-107 MEQ/L)</content> Carbon dioxide, 22-30 <content [facility] total styleCode="Bold"> Con [Moles/volume] in Carbon Dioxide Medical Serum or Plasma </content>22 Center MEQ/L<content styleCode="Italic s"> (22-30 MEQ/L)</content> UNK 9-20 <content [facility] styleCode="Bold"> Con BUN </content>11 Medical MG/DL<content Center styleCode="Italic s"> (9-20 MG/DL)</content> Glucose 74-106 <content [facility] [Mass/volume] in styleCode="Bold"> Clint hs Serum or Plasma Glucose Medical </content>86 Center MG/DL<content styleCode="Italic s"> (74-106 MG/DL)</content> Calcium 8.4-10. <content [facility] [Mass/volume] in 2 styleCode="Bold"> Clint hs Serum or Plasma Calcium Medical </content>9.8 Center MG/DL<content styleCode="Italic s"> (8.4-10.2 MG/DL)</content> UNK > 60 <content [facility] styleCode="Bold"> Con EGFR Medical </content>120 Center GFR<content styleCode="Italic s"> (> 60 GFR)</content> Aspartate 17-59 Above high <content [facility] aminotransferase normal styleCode="Bold"> Clint hs [Enzymatic Aspartate Medical activity/volume] Aminotransferase Center in Serum or Plasma (AST) </content>106 IU/L H<content styleCode="Italic s"> (17-59 IU/L)</content> Albumin 3.5-5.0 <content [facility] [Mass/volume] in styleCode="Bold"> Clint hs Serum or Plasma Albumin Medical </content>3.6 Center G/DL<content styleCode="Italic s"> (3.5-5.0 G/DL)</content> Alkaline 38-126 <content [facility] phosphatase styleCode="Bold"> Con [Enzymatic Alkaline Medical activity/volume] Phosphatase (ALP) Cente r in Serum or Plasma </content>114 IU/L<content styleCode="Italic s"> (38-126 IU/L)</content> Alanine 7-50 Above high <content [facility] aminotransferase normal styleCode="Bold"> Clint hs [Enzymatic Alanine Medical activity/volume] Aminotransferase Center in Serum or Plasma (ALT) </content>107 IU/L H<content styleCode="Italic s"> (7-50 IU/L)</content> Bilirubin.total 0.2-1.3 <content [facility] [Mass/volume] in styleCode="Bold"> Clint hs Serum or Plasma Bilirubin Total Medical </content>1.3 Center MG/DL<content styleCode="Italic s"> (0.2-1.3 MG/DL)</content> ID Date Data Source Liver 01/02/2019 05:10:00 AM EDT [facility] Profile.[id number] Name Value Range Interpretation Description Data Sup porting Code Source(s) Document(s ) Alanine 7-50 Above high <content [facility] aminotransferase normal styleCode="Bold"> Clint hs [Enzymatic Alanine Medical activity/volume] Aminotransferase Center in Serum or Plasma (ALT) </content>129 IU/L H<content styleCode="Italic s"> (7-50 IU/L)</content> Alkaline 38-126 <content [facility] phosphatase styleCode="Bold"> Con [Enzymatic Alkaline Medical activity/volume] Phosphatase (ALP) Cente r in Serum or Plasma </content>121 IU/L<content styleCode="Italic s"> (38-126 IU/L)</content> Aspartate 17-59 Above high <content [facility] aminotransferase normal styleCode="Bold"> Clint hs [Enzymatic Aspartate Medical activity/volume] Aminotransferase Center in Serum or Plasma (AST) </content>157 IU/L H<content styleCode="Italic s"> (17-59 IU/L)</content> Bilirubin.total 0.2-1.3 Above high <content [facility] [Mass/volume] in normal styleCode="Bold"> Clint hs Serum or Plasma Bilirubin Total Medical </content>1.6 Center MG/DL H<content styleCode="Italic s"> (0.2-1.3 MG/DL)</content> Albumin 3.5-5.0 <content [facility] [Mass/volume] in styleCode="Bold"> Clint hs Serum or Plasma Albumin Medical </content>3.5 Center G/DL<content styleCode="Italic s"> (3.5-5.0 G/DL)</content> ID Date Data Source HematologyRou.[id number] 01/02/2019 05:10:00 AM EDT [facility] 0400 Name Value Range Interpretation Description Data Sup porting Code Source(s) Document(s ) Leukocytes 4.4-11.0 <content [facility] [#/volume] in styleCode="Bold [facility] Blood by ">White Blood Medical Automated count Cell Count Center </content>7.20 KCUMM<content styleCode="Ital ics"> (4.4-11.0 KCUMM)</content > Hemoglobin 13.5-17. Below low normal <content [facility] [Mass/volume] in 5 styleCode="Bold Con Blood ">Hemoglobin Medical </content>12.2 Center G/DL L<content styleCode="Ital ics"> (13.5-17.5 G/DL)</content> Erythrocytes 4.4-5.9 Below low normal <content [facility] [#/volume] in styleCode="Bold Con Blood by ">Red Blood Medical Automated count Cell Count Center </content>3.75 MCUMM L<content styleCode="Ital ics"> (4.4-5.9 MCUMM)</content > Erythrocyte mean 80.0-100 <content [facility] corpuscular .0 styleCode="Bold Con volume [Entitic ">Mean Medical volume] by Corpuscular Center Automated count Volume </content>96.5 FL<content styleCode="Ital ics"> (80.0-100.0 FL)</content> Hematocrit 41.0-53. Below low normal <content [facility] [Volume 0 styleCode="Bold Con Fraction] of ">Hematocrit Medical Blood by </content>36.2 Center Automated count % L<content styleCode="Ital ics"> (41.0-53.0 %)</content> Erythrocyte mean 26.0-34. <content [facility] corpuscular 0 styleCode="Bold Con hemoglobin ">Mean Medical [Entitic mass] Corposcular Center by Automated Hemoglobin count </content>32.5 PG<content styleCode="Ital ics"> (26.0-34.0 PG)</content> Erythrocyte mean 32.0-37. <content [facility] corpuscular 0 styleCode="Bold Con hemoglobin ">Mean Corpus. Medical concentration Hgb Center [Mass/volume] by Concentration Automated count (MCHC) </content>33.7 G/DL<content styleCode="Ital ics"> (32.0-37.0 G/DL)</content> Platelets 130-400 <content [facility] [#/volume] in styleCode="Bold Con Blood by ">Platelet Medical Automated count Count Center </content>173 KCUMM<content styleCode="Ital ics"> (130-400 KCUMM)</content > Platelet mean 8.0-11.0 <content [facility] volume [Entitic styleCode="Bold Con volume] in Blood ">Mean Platelet Medical by Automated Volume Center count </content>10.7 FL<content styleCode="Ital ics"> (8.0-11.0 FL)</content> Erythrocyte 11.5-14. Above high <content [facility] distribution 5 normal styleCode="Bold Con width [Ratio] by ">Red Cell Medical Automated count Distribution Center Width </content>15.4 % H<content styleCode="Ital ics"> (11.5-14.5 %)</content> Neutrophils 36-66 <content [facility] [#/volume] in styleCode="Bold Con Blood by ">Neutrophil Medical Automated count </content>56.0 Center %<content styleCode="Ital ics"> (36-66 %)</content> UNK 1.6-7.3 <content [facility] styleCode="Bold Con ">Neutrophil Medical Count Center </content>4.04 KCUMM<content styleCode="Ital ics"> (1.6-7.3 KCUMM)</content > Lymphocytes 24.0-44. <content [facility] [#/volume] in 0 styleCode="Bold Con Blood by ">Lymphocyte Medical Automated count </content>28.9 Center %<content styleCode="Ital ics"> (24.0-44.0 %)</content> UNK 1.0-4.8 <content [facility] styleCode="Bold Con ">Lymphocyte Medical Count Center </content>2.08 KCUMM<content styleCode="Ital ics"> (1.0-4.8 KCUMM)</content > Monocytes 3.0-10.0 <content [facility] [#/volume] in styleCode="Bold Con Blood by ">Monocyte Medical Automated count </content>9.6 Center %<content styleCode="Ital ics"> (3.0-10.0 %)</content> UNK 0.2-0.9 <content [facility] styleCode="Bold Con ">Monocyte Medical Count Center </content>0.69 KCUMM<content styleCode="Ital ics"> (0.2-0.9 KCUMM)</content > Eosinophils 0-5.0 <content [facility] [#/volume] in styleCode="Bold Con Blood by ">Eosinophil Medical Automated count </content>4.6 Center %<content styleCode="Ital ics"> (0-5.0 %)</content> UNK 0.0-0.6 <content [facility] styleCode="Bold Con ">Eosinophil Medical Count Center </content>0.33 KCUMM<content styleCode="Ital ics"> (0.0-0.6 KCUMM)</content > Basophils 0.0-1.0 <content [facility] [#/volume] in styleCode="Bold Con Blood by ">Basophil Medical Automated count </content>0.6 Center %<content styleCode="Ital ics"> (0.0-1.0 %)</content> UNK 0-0.1 <content [facility] styleCode="Bold Con ">Immature Medical Granulocyte Center Count </content>0.02 KCUMM<content styleCode="Ital ics"> (0-0.1 KCUMM)</content > UNK 0.0-0.3 <content [facility] styleCode="Bold Con ">Basophil Medical Count Center </content>0.04 KCUMM<content styleCode="Ital ics"> (0.0-0.3 KCUMM)</content > UNK 0 <content [facility] styleCode="Bold Con ">Nucleated Red Medical Blood Cell Center </content>0.0 /100<content styleCode="Ital ics"> (0 /100)</content> UNK 0.0 <content [facility] styleCode="Bold Con ">Nucleated Red Medical Blood Cell Center Count </content>0.00 KCUMM<content styleCode="Ital ics"> (0.0 KCUMM)</content > UNK < 1 <content [facility] styleCode="Bold Con ">Immature Medical Granulocyte Center Ratio </content>0.3 %<content styleCode="Ital ics"> (< 1 %)</content> ID Date Data Source GFR(Creatinine).[id number] 01/02/2019 05:10:00 AM EDT [facility] 0-0400 Name Value Range Interpretation Code Description Data Yue rce(s) Supporting Document(s ) UNK > 60 <content [facility] styleCode="Bold"> Medical Cent er EGFR </content>120 GFR<content styleCode="Italic s"> (> 60 GFR)</content> ID Date Data Source CHMROUTINECCDA.[id number] 01/02/2019 05:10:00 AM EDT [facility] -0400 Name Value Range Interpretation Description Data Sup porting Code Source(s) Document(s ) UNK >= 1.0 <content [facility] styleCode="Reuben Con d">AG Ratio Medical </content>1.1 Center <content styleCode="Katie lics"> (>= 1.0 )</content> UNK 2.3-3.5 <content [facility] styleCode="Reuben Con d">Globulin Medical </content>3.2 Center G/DL<content styleCode="Katie lics"> (2.3-3.5 G/DL)</content > Phosphate 2.5-4.5 <content [facility] [Mass/volume] styleCode="Reuben Con in Serum or d">Phosphorus Medical Plasma </content>3.7 Center MG/DL<content styleCode="Katie lics"> (2.5-4.5 MG/DL)</conten t> Protein 6.3-8.2 <content [facility] [Mass/volume] styleCode="Reuben Con in Serum or d">Total Medical Plasma Protein Center </content>6.7 G/DL<content styleCode="Katie lics"> (6.3-8.2 G/DL)</content > Lipase 23-300 Above upper panic <content [facility] [Enzymatic limits styleCode="Reuben Con activity/volu d">Lipase Medical me] in Serum </content><con Center or Plasma tent styleCode="Reuben d">1757 IU/L HH</content><c ontent styleCode="Katie lics"> (23-300 IU/L)</content > Magnesium 1.6-2.3 <content [facility] [Mass/volume] styleCode="Reuben Con in Serum or d">Magnesium Medical Plasma </content>1.9 Center MG/DL<content styleCode="Katie lics"> (1.6-2.3 MG/DL)</conten t> ID Date Data Source [facility].[id number] 01/02/2019 05:10:00 AM EDT [facility] Name Value Range Interpretation Description Data Sup porting Code Source(s) Document(s ) Chloride 98-107 <content [facility] [Moles/volume] in styleCode="Bold"> Flex phs Serum or Plasma Chloride Medical </content>103 Center MEQ/L<content styleCode="Italic s"> (98-107 MEQ/L)</content> Sodium 137-145 Below low <content [facility] [Moles/volume] in normal styleCode="Bold"> Flex phs Serum or Plasma Sodium Medical </content>136 Center MEQ/L L<content styleCode="Italic s"> (137-145 MEQ/L)</content> Potassium 3.5-5.3 <content [facility] [Moles/volume] in styleCode="Bold"> Flex phs Serum or Plasma Potassium Medical </content>3.9 Center MEQ/L<content styleCode="Italic s"> (3.5-5.3 MEQ/L)</content> Carbon dioxide, 22-30 <content [facility] total styleCode="Bold"> Con [Moles/volume] in Carbon Dioxide Medical Serum or Plasma </content>25 Center MEQ/L<content styleCode="Italic s"> (22-30 MEQ/L)</content> Calcium 8.4-10. <content [facility] [Mass/volume] in 2 styleCode="Bold"> Clint hs Serum or Plasma Calcium Medical </content>9.5 Center MG/DL<content styleCode="Italic s"> (8.4-10.2 MG/DL)</content> Creatinine 0.5-1.3 <content [facility] [Mass/volume] in styleCode="Bold"> Clint hs Serum or Plasma Creatinine Medical </content>0.7 Center MG/DL<content styleCode="Italic s"> (0.5-1.3 MG/DL)</content> UNK 9-20 <content [facility] styleCode="Bold"> Con BUN </content>12 Medical MG/DL<content Center styleCode="Italic s"> (9-20 MG/DL)</content> Glucose 74-106 <content [facility] [Mass/volume] in styleCode="Bold"> Clint hs Serum or Plasma Glucose Medical </content>82 Center MG/DL<content styleCode="Italic s"> (74-106 MG/DL)</content> Alanine 7-50 Above high <content [facility] aminotransferase normal styleCode="Bold"> Clint hs [Enzymatic Alanine Medical activity/volume] Aminotransferase Center in Serum or Plasma (ALT) </content>129 IU/L H<content styleCode="Italic s"> (7-50 IU/L)</content> Alkaline 38-126 <content [facility] phosphatase styleCode="Bold"> Con [Enzymatic Alkaline Medical activity/volume] Phosphatase (ALP) Cente r in Serum or Plasma </content>121 IU/L<content styleCode="Italic s"> (38-126 IU/L)</content> Aspartate 17-59 Above high <content [facility] aminotransferase normal styleCode="Bold"> Clint hs [Enzymatic Aspartate Medical activity/volume] Aminotransferase Center in Serum or Plasma (AST) </content>157 IU/L H<content styleCode="Italic s"> (17-59 IU/L)</content> UNK > 60 <content [facility] styleCode="Bold"> Con EGFR Medical </content>120 Center GFR<content styleCode="Italic s"> (> 60 GFR)</content> Albumin 3.5-5.0 <content [facility] [Mass/volume] in styleCode="Bold"> Clint hs Serum or Plasma Albumin Medical </content>3.5 Center G/DL<content styleCode="Italic s"> (3.5-5.0 G/DL)</content> Bilirubin.total 0.2-1.3 Above high <content [facility] [Mass/volume] in normal styleCode="Bold"> Clint hs Serum or Plasma Bilirubin Total Medical </content>1.6 Center MG/DL H<content styleCode="Italic s"> (0.2-1.3 MG/DL)</content> ID Date Data Source LIPID.[id number] 01/01/2019 05:00:00 AM EDT [facility] Name Value Range Interpretation Description Data Sup porting Code Source(s) Document(s ) Triglyceride < 150 <content [facility] [Mass/volume] in styleCode="Reuben Andujar Serum or Plasma d">Triglycerid [facility] Center </content>87 MG/DL<content styleCode="Katie lics"> (< 150 MG/DL)</conten t> Cholesterol -<200 Above high normal <content [facility] [Mass/volume] in styleCode="Reuben Andujar Serum or Plasma d">Cholesterol Medical </content>251 Center MG/DL H<content styleCode="Katie lics"> (-<200 MG/DL)</conten t> UNK > 60 <content [facility] styleCode="Reuben Alvarezs d">HDL- Medical Cholesterol Center </content>118 MG/DL<content styleCode="Katie lics"> (> 60 MG/DL)</conten t> UNK < 100 Above high normal <content styleCode="Reuben Alvarezs d">LDL-Cholest [facility] </content>116 MG/DL H<content styleCode="Katie lics"> (< 100 MG/DL)</conten t> ID Date Data Source Coagulation 01/01/2019 05:00:00 AM [facility] Center Rout.[id number] EDT Name Value Range Interpretation Description Data Sup porting Code Source(s) Document(s ) UNK 9.0-13.0 <content styleCode="Bold" Con >Protime Medical </content>11.0 Center SEC<content styleCode="Itali cs"> (9.0-13.0 SEC)</content> INR in 0.80-1.2 <content [facility] Platelet poor 0 styleCode="Bold" Con plasma by >INR Medical Coagulation </content>0.99 Center assay #<content styleCode="Itali cs"> (0.80-1.20 #)</content> aPTT in 25.1-36. <content [facility] Platelet poor 5 styleCode="Bold" Con plasma by >Partial Medical Coagulation Thromboplastin Center assay Time </content>28.3 SEC<content styleCode="Itali cs"> (25.1-36.5 SEC)</content> ID Date Data Source [facility].[id number] 01/01/2019 05:00:00 AM EDT [facility] -0400 Name Value Range Interpretation Description Data Sup porting Code Source(s) Document(s ) Creatine 55-170 <content [facility] Con kinase styleCode="Bold Medical [Enzymatic ">CK Center activity/vol </content>123 ume] in IU/L<content Serum or styleCode="Ital Plasma ics"> (55-170 IU/L)</content> ID Date Data Source Liver 01/01/2019 05:00:00 AM EDT [facility] Profile.[id number] Name Value Range Interpretation Description Data Sup porting Code Source(s) Document(s ) Aspartate 17-59 Above high <content [facility] aminotransferase normal styleCode="Bold"> Clint hs [Enzymatic Aspartate Medical activity/volume] Aminotransferase Center in Serum or Plasma (AST) </content>245 IU/L H<content styleCode="Italic s"> (17-59 IU/L)</content> Alkaline 38-126 Above high <content [facility] phosphatase normal styleCode="Bold"> Con [Enzymatic Alkaline Medical activity/volume] Phosphatase (ALP) Cente r in Serum or Plasma </content>133 IU/L H<content styleCode="Italic s"> (38-126 IU/L)</content> Albumin 3.5-5.0 <content [facility] [Mass/volume] in styleCode="Bold"> Clint hs Serum or Plasma Albumin Medical </content>3.9 Center G/DL<content styleCode="Italic s"> (3.5-5.0 G/DL)</content> Alanine 7-50 Above high <content [facility] aminotransferase normal styleCode="Bold"> Clint hs [Enzymatic Alanine Medical activity/volume] Aminotransferase Center in Serum or Plasma (ALT) </content>144 IU/L H<content styleCode="Italic s"> (7-50 IU/L)</content> Bilirubin.total 0.2-1.3 Above high <content [facility] [Mass/volume] in normal styleCode="Bold"> Clint hs Serum or Plasma Bilirubin Total Medical </content>1.8 Center MG/DL H<content styleCode="Italic s"> (0.2-1.3 MG/DL)</content> ID Date Data Source HematologyRou.[id number] 01/01/2019 05:00:00 AM EDT [facility] 0400 Name Value Range Interpretation Description Data Sup porting Code Source(s) Document(s ) Erythrocytes 4.4-5.9 Below low normal <content [facility] [#/volume] in styleCode="Bold Con Blood by ">Red Blood Medical Automated count Cell Count Center </content>3.95 MCUMM L<content styleCode="Ital ics"> (4.4-5.9 MCUMM)</content > Leukocytes 4.4-11.0 <content [facility] [#/volume] in styleCode="Bold Con Blood by ">White Blood Medical Automated count Cell Count Center </content>6.58 KCUMM<content styleCode="Ital ics"> (4.4-11.0 KCUMM)</content > Hemoglobin 13.5-17. Below low normal <content [facility] [Mass/volume] in 5 styleCode="Bold Con Blood ">Hemoglobin Medical </content>12.8 Center G/DL L<content styleCode="Ital ics"> (13.5-17.5 G/DL)</content> Erythrocyte mean 80.0-100 <content [facility] corpuscular .0 styleCode="Bold Con volume [Entitic ">Mean Medical volume] by Corpuscular Center Automated count Volume </content>94.9 FL<content styleCode="Ital ics"> (80.0-100.0 FL)</content> Hematocrit 41.0-53. Below low normal <content [facility] [Volume 0 styleCode="Bold Con Fraction] of ">Hematocrit Medical Blood by </content>37.5 Center Automated count % L<content styleCode="Ital ics"> (41.0-53.0 %)</content> Erythrocyte mean 26.0-34. <content [facility] corpuscular 0 styleCode="Bold Con hemoglobin ">Mean Medical [Entitic mass] Corposcular Center by Automated Hemoglobin count </content>32.4 PG<content styleCode="Ital ics"> (26.0-34.0 PG)</content> Erythrocyte mean 32.0-37. <content [facility] corpuscular 0 styleCode="Bold Con hemoglobin ">Mean Corpus. Medical concentration Hgb Center [Mass/volume] by Concentration Automated count (MCHC) </content>34.1 G/DL<content styleCode="Ital ics"> (32.0-37.0 G/DL)</content> Platelet mean 8.0-11.0 Above high <content [facility] volume [Entitic normal styleCode="Bold Con volume] in Blood ">Mean Platelet Medical by Automated Volume Center count </content>11.2 FL H<content styleCode="Ital ics"> (8.0-11.0 FL)</content> Platelets 130-400 <content [facility] [#/volume] in styleCode="Bold Con Blood by ">Platelet Medical Automated count Count Center </content>150 KCUMM<content styleCode="Ital ics"> (130-400 KCUMM)</content > Erythrocyte 11.5-14. Above high <content [facility] distribution 5 normal styleCode="Bold Con width [Ratio] by ">Red Cell Medical Automated count Distribution Center Width </content>15.2 % H<content styleCode="Ital ics"> (11.5-14.5 %)</content> Lymphocytes 24.0-44. <content [facility] [#/volume] in 0 styleCode="Bold Con Blood by ">Lymphocyte Medical Automated count </content>27.4 Center %<content styleCode="Ital ics"> (24.0-44.0 %)</content> Neutrophils 36-66 <content [facility] [#/volume] in styleCode="Bold Con Blood by ">Neutrophil Medical Automated count </content>60.1 Center %<content styleCode="Ital ics"> (36-66 %)</content> UNK 1.0-4.8 <content [facility] styleCode="Bold Con ">Lymphocyte Medical Count Center </content>1.80 KCUMM<content styleCode="Ital ics"> (1.0-4.8 KCUMM)</content > UNK 1.6-7.3 <content [facility] styleCode="Bold Con ">Neutrophil Medical Count Center </content>3.96 KCUMM<content styleCode="Ital ics"> (1.6-7.3 KCUMM)</content > Monocytes 3.0-10.0 <content [facility] [#/volume] in styleCode="Bold Con Blood by ">Monocyte Medical Automated count </content>7.6 Center %<content styleCode="Ital ics"> (3.0-10.0 %)</content> Eosinophils 0-5.0 <content [facility] [#/volume] in styleCode="Bold Con Blood by ">Eosinophil Medical Automated count </content>4.0 Center %<content styleCode="Ital ics"> (0-5.0 %)</content> UNK 0.2-0.9 <content [facility] styleCode="Bold Con ">Monocyte Medical Count Center </content>0.50 KCUMM<content styleCode="Ital ics"> (0.2-0.9 KCUMM)</content > UNK 0 <content [facility] styleCode="Bold Con ">Nucleated Red Medical Blood Cell Center </content>0.0 /100<content styleCode="Ital ics"> (0 /100)</content> UNK 0.0-0.6 <content [facility] styleCode="Bold Con ">Eosinophil Medical Count Center </content>0.26 KCUMM<content styleCode="Ital ics"> (0.0-0.6 KCUMM)</content > UNK 0.0-0.3 <content [facility] styleCode="Bold Con ">Basophil Medical Count Center </content>0.04 KCUMM<content styleCode="Ital ics"> (0.0-0.3 KCUMM)</content > Basophils 0.0-1.0 <content [facility] [#/volume] in styleCode="Bold Con Blood by ">Basophil Medical Automated count </content>0.6 Center %<content styleCode="Ital ics"> (0.0-1.0 %)</content> UNK 0.0 <content [facility] styleCode="Bold Con ">Nucleated Red Medical Blood Cell Center Count </content>0.00 KCUMM<content styleCode="Ital ics"> (0.0 KCUMM)</content > UNK < 1 <content [facility] styleCode="Bold Con ">Immature Medical Granulocyte Center Ratio </content>0.3 %<content styleCode="Ital ics"> (< 1 %)</content> UNK 0-0.1 <content [facility] styleCode="Bold Con ">Immature Medical Granulocyte Center Count </content>0.02 KCUMM<content styleCode="Ital ics"> (0-0.1 KCUMM)</content > ID Date Data Source GFR(Creatinine).[id number] 01/01/2019 05:00:00 AM EDT [facility] 0-0400 Name Value Range Interpretation Code Description Data Yue rce(s) Supporting Document(s ) UNK > 60 <content [facility] styleCode="Bold"> Medical Cent er EGFR </content>143 GFR<content styleCode="Italic s"> (> 60 GFR)</content> ID Date Data Source [facility].[id number] 01/01/2019 05:00:00 AM EDT [facility] -0400 Name Value Range Interpretation Description Data Sup porting Code Source(s) Document(s ) UNK 2.3-3.5 <content [facility] styleCode="Reuben Con d">Globulin Medical </content>3.2 Center G/DL<content styleCode="Katie lics"> (2.3-3.5 G/DL)</content > UNK >= 1.0 <content [facility] styleCode="Reuben Con d">AG Ratio Medical </content>1.2 Center <content styleCode="Katie lics"> (>= 1.0 )</content> Magnesium 1.6-2.3 <content [facility] [Mass/volume] styleCode="Reuben Con in Serum or d">Magnesium Medical Plasma </content>1.8 Center MG/DL<content styleCode="Katie lics"> (1.6-2.3 MG/DL)</conten t> Protein 6.3-8.2 <content [facility] [Mass/volume] styleCode="Reuben Con in Serum or d">Total Medical Plasma Protein Center </content>7.1 G/DL<content styleCode="Katie lics"> (6.3-8.2 G/DL)</content > Phosphate 2.5-4.5 <content [facility] [Mass/volume] styleCode="Reuben Con in Serum or d">Phosphorus Medical Plasma </content>3.7 Center MG/DL<content styleCode="Katie lics"> (2.5-4.5 MG/DL)</conten t> Lipase 23-300 Above upper panic <content Saint [Enzymatic limits styleCode="Reuben Andujar activity/volu d">Lipase Medical me] in Serum </content><con Center or Plasma tent styleCode="Reuben d">1562 IU/L HH</content><c ontent styleCode="Katie lics"> (23-300 IU/L)</content > ID Date Data Source [facility].[id number] 01/01/2019 05:00:00 AM EDT [facility] Center Name Value Range Interpretation Description Data Sup porting Code Source(s) Document(s ) Sodium 137-145 <content [facility] [Moles/volume] in styleCode="Bold"> [facility] Serum or Plasma Sodium Medical </content>137 Center MEQ/L<content styleCode="Italic s"> (137-145 MEQ/L)</content> Potassium 3.5-5.3 Below low <content [facility] [Moles/volume] in normal styleCode="Bold"> Flex [facility] [place] Serum or Plasma Potassium Medical </content>3.4 Center MEQ/L L<content styleCode="Italic s"> (3.5-5.3 MEQ/L)</content> Carbon dioxide, 22-30 <content [facility] total styleCode="Bold"> Con [Moles/volume] in Carbon Dioxide Medical Serum or Plasma </content>25 Center MEQ/L<content styleCode="Italic s"> (22-30 MEQ/L)</content> Glucose 74-106 <content [facility] [Mass/volume] in styleCode="Bold"> Clint hs Serum or Plasma Glucose Medical </content>97 Center MG/DL<content styleCode="Italic s"> (74-106 MG/DL)</content> Chloride 98-107 <content [facility] [Moles/volume] in styleCode="Bold"> Flex phs Serum or Plasma Chloride Medical </content>101 Center MEQ/L<content styleCode="Italic s"> (98-107 MEQ/L)</content> UNK 9-20 <content [facility] styleCode="Bold"> Con BUN </content>10 Medical MG/DL<content Center styleCode="Italic s"> (9-20 MG/DL)</content> Creatinine 0.5-1.3 <content [facility] [Mass/volume] in styleCode="Bold"> Clint hs Serum or Plasma Creatinine Medical </content>0.6 Center MG/DL<content styleCode="Italic s"> (0.5-1.3 MG/DL)</content> UNK > 60 <content [facility] styleCode="Bold"> Con EGFR Medical </content>143 Center GFR<content styleCode="Italic s"> (> 60 GFR)</content> Aspartate 17-59 Above high <content [facility] aminotransferase normal styleCode="Bold"> Clint hs [Enzymatic Aspartate Medical activity/volume] Aminotransferase Center in Serum or Plasma (AST) </content>245 IU/L H<content styleCode="Italic s"> (17-59 IU/L)</content> Calcium 8.4-10. <content [facility] [Mass/volume] in 2 styleCode="Bold"> Clint hs Serum or Plasma Calcium Medical </content>10.0 Center MG/DL<content styleCode="Italic s"> (8.4-10.2 MG/DL)</content> Alanine 7-50 Above high <content [facility] aminotransferase normal styleCode="Bold"> Clint hs [Enzymatic Alanine Medical activity/volume] Aminotransferase Center in Serum or Plasma (ALT) </content>144 IU/L H<content styleCode="Italic s"> (7-50 IU/L)</content> Bilirubin.total 0.2-1.3 Above high <content [facility] [Mass/volume] in normal styleCode="Bold"> Clint hs Serum or Plasma Bilirubin Total Medical </content>1.8 Center MG/DL H<content styleCode="Italic s"> (0.2-1.3 MG/DL)</content> Albumin 3.5-5.0 <content [facility] [Mass/volume] in styleCode="Bold"> Clint hs Serum or Plasma Albumin Medical </content>3.9 Center G/DL<content styleCode="Italic s"> (3.5-5.0 G/DL)</content> Alkaline 38-126 Above high <content [facility] phosphatase normal styleCode="Bold"> Con [Enzymatic Alkaline Medical activity/volume] Phosphatase (ALP) Cente r in Serum or Plasma </content>133 IU/L H<content styleCode="Italic s"> (38-126 IU/L)</content> ID Date Data Source GFR(Creatinine).[id number] 12/31/2018 09:26:00 PM EDT [facility] 0-0400 Name Value Range Interpretation Code Description Data Yue rce(s) Supporting Document(s ) UNK > 60 <content [facility] styleCode="Bold"> Medical Cent er EGFR </content>120 GFR<content styleCode="Italic s"> (> 60 GFR)</content> ID Date Data Source [facility].[id number] 12/31/2018 09:26:00 PM EDT [facility] Name Value Range Interpretation Description Data Sup porting Code Source(s) Document(s ) Sodium 137-145 Below low normal <content [facility] [Moles/volume] styleCode="Reuben Con in Serum or d">Sodium Medical Plasma </content>136 Center MEQ/L L<content styleCode="Katie lics"> (137-145 MEQ/L)</conten t> Potassium 3.5-5.3 <content [facility] [Moles/volume] styleCode="Reuben Con in Serum or d">Potassium Medical Plasma </content>3.7 Center MEQ/L<content styleCode="Katie lics"> (3.5-5.3 MEQ/L)</conten t> Chloride 98-107 <content [facility] [Moles/volume] styleCode="Reuben Con in Serum or d">Chloride Medical Plasma </content>99 Center MEQ/L<content styleCode="Katie lics"> (98-107 MEQ/L)</conten t> UNK 9-20 <content Saint styleCode="Reuben Con d">BUN Medical </content>10 Center MG/DL<content styleCode="Katie lics"> (9-20 MG/DL)</conten t> Creatinine 0.5-1.3 <content [facility] [Mass/volume] styleCode="Reuben Con in Serum or d">Creatinine Medical Plasma </content>0.7 Center MG/DL<content styleCode="Katie lics"> (0.5-1.3 MG/DL)</conten t> Carbon 22-30 <content Saint dioxide, total styleCode="Reuben Con [Moles/volume] d">Carbon Medical in Serum or Dioxide Center Plasma </content>28 MEQ/L<content styleCode="Katie lics"> (22-30 MEQ/L)</conten t> Calcium 8.4-10.2 <content [facility] [Mass/volume] styleCode="Reuben Con in Serum or d">Calcium Medical Plasma </content>10.0 Center MG/DL<content styleCode="Katie lics"> (8.4-10.2 MG/DL)</conten t> UNK > 60 <content [facility] styleCode="Reuben Con d">EGFR Medical </content>120 Center GFR<content styleCode="Katie lics"> (> 60 GFR)</content> Glucose 74-106 <content [facility] [Mass/volume] styleCode="Reuben Con in Serum or d">Glucose Medical Plasma </content>101 Center MG/DL<content styleCode="Katie lics"> (74-106 MG/DL)</conten t> ID Date Data Source [facility].[id number] 12/31/2018 05:15:00 AM EDT [facility] -0400 Name Value Range Interpretation Description Data Sup porting Code Source(s) Document(s ) Creatine 55-170 Above high normal <content [facility] s kinase styleCode="Bold Medical [Enzymatic ">CK Center activity/vol </content>272 ume] in IU/L H<content Serum or styleCode="Ital Plasma ics"> (55-170 IU/L)</content> ID Date Data Source Liver 12/31/2018 05:15:00 AM EDT [facility] Profile.[id number] Name Value Range Interpretation Description Data Sup porting Code Source(s) Document(s ) Alanine 7-50 Above high <content [facility] aminotransferase normal styleCode="Bold"> Clint hs [Enzymatic Alanine Medical activity/volume] Aminotransferase Center in Serum or Plasma (ALT) </content>83 IU/L H<content styleCode="Italic s"> (7-50 IU/L)</content> Aspartate 17-59 Above high <content [facility] aminotransferase normal styleCode="Bold"> Clint hs [Enzymatic Aspartate Medical activity/volume] Aminotransferase Center in Serum or Plasma (AST) </content>146 IU/L H<content styleCode="Italic s"> (17-59 IU/L)</content> Alkaline 38-126 Above high <content [facility] phosphatase normal styleCode="Bold"> Con [Enzymatic Alkaline Medical activity/volume] Phosphatase (ALP) Cente r in Serum or Plasma </content>138 IU/L H<content styleCode="Italic s"> (38-126 IU/L)</content> Bilirubin.total 0.2-1.3 Above high <content [facility] [Mass/volume] in normal styleCode="Bold"> Clint hs Serum or Plasma Bilirubin Total Medical </content>1.9 Center MG/DL H<content styleCode="Italic s"> (0.2-1.3 MG/DL)</content> Albumin 3.5-5.0 <content [facility] [Mass/volume] in styleCode="Bold"> Clint hs Serum or Plasma Albumin Medical </content>3.9 Center G/DL<content styleCode="Italic s"> (3.5-5.0 G/DL)</content> ID Date Data Source HematologyRou.[id number] 12/31/2018 05:15:00 AM EDT [facility] 0400 Name Value Range Interpretation Description Data Sup porting Code Source(s) Document(s ) Hemoglobin 13.5-17. Below low normal <content [facility] [Mass/volume] in 5 styleCode="Bold Con Blood ">Hemoglobin Medical </content>13.1 Center G/DL L<content styleCode="Ital ics"> (13.5-17.5 G/DL)</content> Leukocytes 4.4-11.0 <content [facility] [#/volume] in styleCode="Bold [facility] Blood by ">White Blood Medical Automated count Cell Count Center </content>6.66 KCUMM<content styleCode="Ital ics"> (4.4-11.0 KCUMM)</content > Erythrocytes 4.4-5.9 Below low normal <content Saint [#/volume] in styleCode="Bold Con Blood by ">Red Blood Medical Automated count Cell Count Center </content>4.05 MCUMM L<content styleCode="Ital ics"> (4.4-5.9 MCUMM)</content > Erythrocyte mean 32.0-37. <content [facility] corpuscular 0 styleCode="Bold Con hemoglobin ">Mean Corpus. Medical concentration Hgb Center [Mass/volume] by Concentration Automated count (MCHC) </content>34.8 G/DL<content styleCode="Ital ics"> (32.0-37.0 G/DL)</content> Hematocrit 41.0-53. Below low normal <content Saint [Volume 0 styleCode="Bold [facility] Fraction] of ">Hematocrit Medical Blood by </content>37.6 Center Automated count % L<content styleCode="Ital ics"> (41.0-53.0 %)</content> Erythrocyte mean 80.0-100 <content [facility] corpuscular .0 styleCode="Bold Con volume [Entitic ">Mean Medical volume] by Corpuscular Center Automated count Volume </content>92.8 FL<content styleCode="Ital ics"> (80.0-100.0 FL)</content> Erythrocyte mean 26.0-34. <content [facility] corpuscular 0 styleCode="Bold Con hemoglobin ">Mean Medical [Entitic mass] Corposcular Center by Automated Hemoglobin count </content>32.3 PG<content styleCode="Ital ics"> (26.0-34.0 PG)</content> Erythrocyte 11.5-14. Above high <content [facility] distribution 5 normal styleCode="Bold Con width [Ratio] by ">Red Cell Medical Automated count Distribution Center Width </content>15.3 % H<content styleCode="Ital ics"> (11.5-14.5 %)</content> Platelets 130-400 <content Saint [#/volume] in styleCode="Bold Con Blood by ">Platelet Medical Automated count Count Center </content>156 KCUMM<content styleCode="Ital ics"> (130-400 KCUMM)</content > Platelet mean 8.0-11.0 Above high <content [facility] volume [Entitic normal styleCode="Bold Con volume] in Blood ">Mean Platelet Medical by Automated Volume Center count </content>11.2 FL H<content styleCode="Ital ics"> (8.0-11.0 FL)</content> Lymphocytes 24.0-44. Below low normal <content [facility] [#/volume] in 0 styleCode="Bold Con Blood by ">Lymphocyte Medical Automated count </content>18.8 Center % L<content styleCode="Ital ics"> (24.0-44.0 %)</content> UNK 1.6-7.3 <content [facility] styleCode="Bold Con ">Neutrophil Medical Count Center </content>4.66 KCUMM<content styleCode="Ital ics"> (1.6-7.3 KCUMM)</content > Neutrophils 36-66 Above high <content Saint [#/volume] in normal styleCode="Bold Con Blood by ">Neutrophil Medical Automated count </content>69.8 Center % H<content styleCode="Ital ics"> (36-66 %)</content> Monocytes 3.0-10.0 <content Saint [#/volume] in styleCode="Bold Con Blood by ">Monocyte Medical Automated count </content>7.5 Center %<content styleCode="Ital ics"> (3.0-10.0 %)</content> UNK 1.0-4.8 <content [facility] styleCode="Bold Con ">Lymphocyte Medical Count Center </content>1.25 KCUMM<content styleCode="Ital ics"> (1.0-4.8 KCUMM)</content > UNK 0.2-0.9 <content [facility] styleCode="Bold Con ">Monocyte Medical Count Center </content>0.50 KCUMM<content styleCode="Ital ics"> (0.2-0.9 KCUMM)</content > Eosinophils 0-5.0 <content Saint [#/volume] in styleCode="Bold Con Blood by ">Eosinophil Medical Automated count </content>3.2 Center %<content styleCode="Ital ics"> (0-5.0 %)</content> Basophils 0.0-1.0 <content Saint [#/volume] in styleCode="Bold Con Blood by ">Basophil Medical Automated count </content>0.5 Center %<content styleCode="Ital ics"> (0.0-1.0 %)</content> UNK 0.0-0.6 <content [facility] styleCode="Bold Con ">Eosinophil Medical Count Center </content>0.21 KCUMM<content styleCode="Ital ics"> (0.0-0.6 KCUMM)</content > UNK 0.0-0.3 <content [facility] styleCode="Bold Con ">Basophil Medical Count Center </content>0.03 KCUMM<content styleCode="Ital ics"> (0.0-0.3 KCUMM)</content > UNK 0.0 <content Saint styleCode="Bold Con ">Nucleated Red Medical Blood Cell Center Count </content>0.00 KCUMM<content styleCode="Ital ics"> (0.0 KCUMM)</content > UNK 0-0.1 <content [facility] styleCode="Bold Con ">Immature Medical Granulocyte Center Count </content>0.01 KCUMM<content styleCode="Ital ics"> (0-0.1 KCUMM)</content > UNK 0 <content [facility] styleCode="Bold Con ">Nucleated Red Medical Blood Cell Center </content>0.0 /100<content styleCode="Ital ics"> (0 /100)</content> UNK < 1 <content [facility] styleCode="Bold Con ">Immature Medical Granulocyte Center Ratio </content>0.2 %<content styleCode="Ital ics"> (< 1 %)</content> ID Date Data Source GFR(Creatinine).[id number] 12/31/2018 05:15:00 AM EDT [facility] 0-0400 Name Value Range Interpretation Code Description Data Yue rce(s) Supporting Document(s ) UNK > 60 <content [facility] styleCode="Bold"> Medical Cent er EGFR </content>143 GFR<content styleCode="Italic s"> (> 60 GFR)</content> ID Date Data Source CHMROUTINECCDA.[id number] 12/31/2018 05:15:00 AM EDT [facility] -0400 Name Value Range Interpretation Description Data Sup porting Code Source(s) Document(s ) UNK >= 1.0 <content Saint styleCode="Reuben Con d">AG Ratio Medical </content>1.1 Center <content styleCode="Katie lics"> (>= 1.0 )</content> UNK 2.3-3.5 Above high normal <content [facility] styleCode="Reuben Con d">Globulin Medical </content>3.6 Center G/DL H<content styleCode="Katie lics"> (2.3-3.5 G/DL)</content > Phosphate 2.5-4.5 <content [facility] [Mass/volume] styleCode="Reuben Con in Serum or d">Phosphorus Medical Plasma </content>3.3 Center MG/DL<content styleCode="Katie lics"> (2.5-4.5 MG/DL)</conten t> Magnesium 1.6-2.3 Below low normal <content [facility] [Mass/volume] styleCode="Reuben Con in Serum or d">Magnesium Medical Plasma </content>1.4 Center MG/DL L<content styleCode="Katie lics"> (1.6-2.3 MG/DL)</conten t> Protein 6.3-8.2 <content [facility] [Mass/volume] styleCode="Reuben Con in Serum or d">Total Medical Plasma Protein Center </content>7.5 G/DL<content styleCode="Katie lics"> (6.3-8.2 G/DL)</content > Lipase 23-300 Above upper panic <content Saint [Enzymatic limits styleCode="Reuben Alvarezs activity/volu d">Lipase Medical me] in Serum </content><con Center or Plasma tent styleCode="Reuben d">1843 IU/L HH</content><c ontent styleCode="Katie lics"> (23-300 IU/L)</content > ID Date Data Source [facility].[id number] 12/31/2018 05:15:00 AM EDT [facility] Name Value Range Interpretation Description Data Sup porting Code Source(s) Document(s ) Sodium 137-145 Below low <content [facility] [Moles/volume] in normal styleCode="Bold"> Flex phs Serum or Plasma Sodium Medical </content>136 Center MEQ/L L<content styleCode="Italic s"> (137-145 MEQ/L)</content> Potassium 3.5-5.3 Below lower <content [facility] [Moles/volume] in panic limits styleCode="Bold"> J osephs Serum or Plasma Potassium Medical </content><conten Center t styleCode="Bold"> 3.0 MEQ/L LL</content><cont ent styleCode="Italic s"> (3.5-5.3 MEQ/L)</content> Creatinine 0.5-1.3 <content [facility] [Mass/volume] in styleCode="Bold"> Clint hs Serum or Plasma Creatinine Medical </content>0.6 Center MG/DL<content styleCode="Italic s"> (0.5-1.3 MG/DL)</content> Carbon dioxide, 22-30 <content [facility] total styleCode="Bold"> Con [Moles/volume] in Carbon Dioxide Medical Serum or Plasma </content>28 Center MEQ/L<content styleCode="Italic s"> (22-30 MEQ/L)</content> Chloride 98-107 Below low <content [facility] [Moles/volume] in normal styleCode="Bold"> Flex phs Serum or Plasma Chloride Medical </content>94 Center MEQ/L L<content styleCode="Italic s"> (98-107 MEQ/L)</content> UNK 9-20 Below low <content [facility] normal styleCode="Bold"> Con BUN </content>8 Medical MG/DL L<content Center styleCode="Italic s"> (9-20 MG/DL)</content> Glucose 74-106 <content [facility] [Mass/volume] in styleCode="Bold"> Clint hs Serum or Plasma Glucose Medical </content>100 Center MG/DL<content styleCode="Italic s"> (74-106 MG/DL)</content> Aspartate 17-59 Above high <content [facility] aminotransferase normal styleCode="Bold"> Clint hs [Enzymatic Aspartate Medical activity/volume] Aminotransferase Center in Serum or Plasma (AST) </content>146 IU/L H<content styleCode="Italic s"> (17-59 IU/L)</content> Calcium 8.4-10. <content [facility] [Mass/volume] in 2 styleCode="Bold"> Clint hs Serum or Plasma Calcium Medical </content>9.8 Center MG/DL<content styleCode="Italic s"> (8.4-10.2 MG/DL)</content> UNK > 60 <content [facility] styleCode="Bold"> Con EGFR Medical </content>143 Center GFR<content styleCode="Italic s"> (> 60 GFR)</content> Alanine 7-50 Above high <content [facility] aminotransferase normal styleCode="Bold"> Clint hs [Enzymatic Alanine Medical activity/volume] Aminotransferase Center in Serum or Plasma (ALT) </content>83 IU/L H<content styleCode="Italic s"> (7-50 IU/L)</content> Albumin 3.5-5.0 <content [facility] [Mass/volume] in styleCode="Bold"> Clint hs Serum or Plasma Albumin Medical </content>3.9 Center G/DL<content styleCode="Italic s"> (3.5-5.0 G/DL)</content> Bilirubin.total 0.2-1.3 Above high <content [facility] [Mass/volume] in normal styleCode="Bold"> Clint hs Serum or Plasma Bilirubin Total Medical </content>1.9 Center MG/DL H<content styleCode="Italic s"> (0.2-1.3 MG/DL)</content> Alkaline 38-126 Above high <content [facility] phosphatase normal styleCode="Bold"> Con [Enzymatic Alkaline Medical activity/volume] Phosphatase (ALP) Cente r in Serum or Plasma </content>138 IU/L H<content styleCode="Italic s"> (38-126 IU/L)</content> ID Date Data Source Coagulation 12/31/2018 05:15:00 AM [facility] Rout.[id number] EDT Name Value Range Interpretation Description Data Sup porting Code Source(s) Document(s ) UNK 9.0-13.0 <content [facility] styleCode="Bold" Con >Protime Medical </content>10.8 Center SEC<content styleCode="Itali cs"> (9.0-13.0 SEC)</content> INR in 0.80-1.2 <content [facility] Platelet poor 0 styleCode="Bold" Con plasma by >INR Medical Coagulation </content>0.97 Center assay #<content styleCode="Itali cs"> (0.80-1.20 #)</content> aPTT in 25.1-36. <content [facility] Platelet poor 5 styleCode="Bold" Con plasma by >Partial Medical Coagulation Thromboplastin Center assay Time </content>27.7 SEC<content styleCode="Itali cs"> (25.1-36.5 SEC)</content> ID Date Data Source Liver 12/30/2018 04:26:00 PM EDT [facility] Profile.[id number] Name Value Range Interpretation Description Data Sup porting Code Source(s) Document(s ) Aspartate 17-59 Above high <content [facility] aminotransferase normal styleCode="Bold"> Clint hs [Enzymatic Aspartate Medical activity/volume] Aminotransferase Center in Serum or Plasma (AST) </content>157 IU/L H<content styleCode="Italic s"> (17-59 IU/L)</content> Alanine 7-50 Above high <content [facility] aminotransferase normal styleCode="Bold"> Clint hs [Enzymatic Alanine Medical activity/volume] Aminotransferase Center in Serum or Plasma (ALT) </content>84 IU/L H<content styleCode="Italic s"> (7-50 IU/L)</content> Alkaline 38-126 Above high <content [facility] phosphatase normal styleCode="Bold"> Con [Enzymatic Alkaline Medical activity/volume] Phosphatase (ALP) Cente r in Serum or Plasma </content>142 IU/L H<content styleCode="Italic s"> (38-126 IU/L)</content> Albumin 3.5-5.0 <content [facility] [Mass/volume] in styleCode="Bold"> Clint hs Serum or Plasma Albumin Medical </content>4.1 Center G/DL<content styleCode="Italic s"> (3.5-5.0 G/DL)</content> Bilirubin.total 0.2-1.3 Above high <content [facility] [Mass/volume] in normal styleCode="Bold"> Clint hs Serum or Plasma Bilirubin Total Medical </content>1.4 Center MG/DL H<content styleCode="Italic s"> (0.2-1.3 MG/DL)</content> ID Date Data Source HematologyRou.[id number] 12/30/2018 04:26:00 PM EDT [facility] 0400 Name Value Range Interpretation Description Data Sup porting Code Source(s) Document(s ) Leukocytes 4.4-11.0 <content [facility] [#/volume] in styleCode="Bold Con Blood by ">White Blood Medical Automated count Cell Count Center </content>5.88 KCUMM<content styleCode="Ital ics"> (4.4-11.0 KCUMM)</content > Hematocrit 41.0-53. Below low normal <content [facility] [Volume 0 styleCode="Bold Con Fraction] of ">Hematocrit Medical Blood by </content>36.3 Center Automated count % L<content styleCode="Ital ics"> (41.0-53.0 %)</content> Erythrocytes 4.4-5.9 Below low normal <content [facility] [#/volume] in styleCode="Bold Con Blood by ">Red Blood Medical Automated count Cell Count Center </content>3.90 MCUMM L<content styleCode="Ital ics"> (4.4-5.9 MCUMM)</content > Erythrocyte mean 80.0-100 <content [facility] corpuscular .0 styleCode="Bold Con volume [Entitic ">Mean Medical volume] by Corpuscular Center Automated count Volume </content>93.1 FL<content styleCode="Ital ics"> (80.0-100.0 FL)</content> Hemoglobin 13.5-17. Below low normal <content [facility] [Mass/volume] in 5 styleCode="Bold Con Blood ">Hemoglobin Medical </content>12.4 Center G/DL L<content styleCode="Ital ics"> (13.5-17.5 G/DL)</content> Erythrocyte 11.5-14. Above high <content [facility] distribution 5 normal styleCode="Bold [facility] width [Ratio] by ">Red Cell Medical Automated count Distribution Center Width </content>15.4 % H<content styleCode="Ital ics"> (11.5-14.5 %)</content> Erythrocyte mean 32.0-37. <content [facility] corpuscular 0 styleCode="Bold Con hemoglobin ">Mean Corpus. Medical concentration Hgb Center [Mass/volume] by Concentration Automated count (MCHC) </content>34.2 G/DL<content styleCode="Ital ics"> (32.0-37.0 G/DL)</content> Erythrocyte mean 26.0-34. <content [facility] corpuscular 0 styleCode="Bold Con hemoglobin ">Mean Medical [Entitic mass] Corposcular Center by Automated Hemoglobin count </content>31.8 PG<content styleCode="Ital ics"> (26.0-34.0 PG)</content> Platelets 130-400 <content [facility] [#/volume] in styleCode="Bold Con Blood by ">Platelet Medical Automated count Count Center </content>158 KCUMM<content styleCode="Ital ics"> (130-400 KCUMM)</content > Neutrophils 36-66 Above high <content [facility] [#/volume] in normal styleCode="Bold Con Blood by ">Neutrophil Medical Automated count </content>71.2 Center % H<content styleCode="Ital ics"> (36-66 %)</content> Platelet mean 8.0-11.0 <content [facility] volume [Entitic styleCode="Bold Con volume] in Blood ">Mean Platelet Medical by Automated Volume Center count </content>10.6 FL<content styleCode="Ital ics"> (8.0-11.0 FL)</content> UNK 1.6-7.3 <content [facility] styleCode="Bold Con ">Neutrophil Medical Count Center </content>4.18 KCUMM<content styleCode="Ital ics"> (1.6-7.3 KCUMM)</content > UNK 1.0-4.8 <content [facility] styleCode="Bold Con ">Lymphocyte Medical Count Center </content>1.12 KCUMM<content styleCode="Ital ics"> (1.0-4.8 KCUMM)</content > Monocytes 3.0-10.0 <content [facility] [#/volume] in styleCode="Bold Con Blood by ">Monocyte Medical Automated count </content>7.3 Center %<content styleCode="Ital ics"> (3.0-10.0 %)</content> Lymphocytes 24.0-44. Below low normal <content [facility] [#/volume] in 0 styleCode="Bold Con Blood by ">Lymphocyte Medical Automated count </content>19.0 Center % L<content styleCode="Ital ics"> (24.0-44.0 %)</content> UNK 0.2-0.9 <content [facility] styleCode="Bold Con ">Monocyte Medical Count Center </content>0.43 KCUMM<content styleCode="Ital ics"> (0.2-0.9 KCUMM)</content > UNK 0.0-0.6 <content [facility] styleCode="Bold Con ">Eosinophil Medical Count Center </content>0.09 KCUMM<content styleCode="Ital ics"> (0.0-0.6 KCUMM)</content > Basophils 0.0-1.0 <content [facility] [#/volume] in styleCode="Bold Con Blood by ">Basophil Medical Automated count </content>0.5 Center %<content styleCode="Ital ics"> (0.0-1.0 %)</content> Eosinophils 0-5.0 <content [facility] [#/volume] in styleCode="Bold Con Blood by ">Eosinophil Medical Automated count </content>1.5 Center %<content styleCode="Ital ics"> (0-5.0 %)</content> UNK 0.0-0.3 <content [facility] styleCode="Bold Con ">Basophil Medical Count Center </content>0.03 KCUMM<content styleCode="Ital ics"> (0.0-0.3 KCUMM)</content > UNK 0.0 <content [facility] styleCode="Bold Con ">Nucleated Red Medical Blood Cell Center Count </content>0.00 KCUMM<content styleCode="Ital ics"> (0.0 KCUMM)</content > UNK 0-0.1 <content [facility] styleCode="Bold Con ">Immature Medical Granulocyte Center Count </content>0.03 KCUMM<content styleCode="Ital ics"> (0-0.1 KCUMM)</content > UNK 0 <content [facility] styleCode="Bold Con ">Nucleated Red Medical Blood Cell Center </content>0.0 /100<content styleCode="Ital ics"> (0 /100)</content> UNK < 1 <content [facility] styleCode="Bold Con ">Immature Medical Granulocyte Center Ratio </content>0.5 %<content styleCode="Ital ics"> (< 1 %)</content> ID Date Data Source CHMROUTINECCDA.[id number] 12/30/2018 04:26:00 PM EDT [facility] -0400 Name Value Range Interpretation Description Data Sup porting Code Source(s) Document(s ) UNK >= 1.0 <content [facility] styleCode="Reuben Con d">AG Ratio Medical </content>1.3 Center <content styleCode="Katie lics"> (>= 1.0 )</content> UNK 2.3-3.5 <content [facility] styleCode="Reuben Con d">Globulin Medical </content>3.2 Center G/DL<content styleCode="Katie lics"> (2.3-3.5 G/DL)</content > Phosphate 2.5-4.5 <content [facility] [Mass/volume] styleCode="Reuben Con in Serum or d">Phosphorus Medical Plasma </content>3.2 Center MG/DL<content styleCode="Katie lics"> (2.5-4.5 MG/DL)</conten t> Magnesium 1.6-2.3 Below low normal <content [facility] [Mass/volume] styleCode="Reuben Con in Serum or d">Magnesium Medical Plasma </content>1.3 Center MG/DL L<content styleCode="Katie lics"> (1.6-2.3 MG/DL)</conten t> Protein 6.3-8.2 <content [facility] [Mass/volume] styleCode="Reuben Con in Serum or d">Total Medical Plasma Protein Center </content>7.3 G/DL<content styleCode="Katie lics"> (6.3-8.2 G/DL)</content > ID Date Data Source Coagulation 12/30/2018 04:26:00 PM [facility] ical Center Rout.[id number] EDT Name Value Range Interpretation Description Data Sup porting Code Source(s) Document(s ) UNK 9.0-13.0 <content [facility] styleCode="Bold" Con >Protime Medical </content>10.8 Center SEC<content styleCode="Itali cs"> (9.0-13.0 SEC)</content> aPTT in 25.1-36. <content [facility] Platelet poor 5 styleCode="Bold" Con plasma by >Partial Medical Coagulation Thromboplastin Center assay Time </content>30.6 SEC<content styleCode="Itali cs"> (25.1-36.5 SEC)</content> INR in 0.80-1.2 <content [facility] Platelet poor 0 styleCode="Bold" Con plasma by >INR Medical Coagulation </content>0.97 Center assay #<content styleCode="Itali cs"> (0.80-1.20 #)</content> ID Date Data Source [employer].[id number] 12/30/2018 04:26:00 PM EDT [facility] -0400 Name Value Range Interpretation Description Data Sup porting Code Source(s) Document(s ) Troponin < 0.034 <content [facility] I.cardiac styleCode="Bold Con [Mass/volume ">Troponin I Medical ] in Serum </content>< Center or Plasma 0.012 NG/ML<content styleCode="Ital ics"> (< 0.034 NG/ML)</content > ID Date Data Source Stools.[id number] 12/30/2018 09:35:00 AM EDT [facility] Name Value Range Interpretation Code Description Data Yue rce(s) Supporting Document(s ) UNK NEGATIVE <content Saint Con styleCode="Bold" Medical Cente r >Guaiac, Occult Blood </content>NEGATI VE <content styleCode="Itali cs"> (NEGATIVE )</content> ID Date Data Source [facility].[id number] 12/29/2018 11:57:00 PM EDT [facility] -0400 Name Value Range Interpretation Code Description Data Yue rce(s) Supporting Document(s ) UNK 30-110 <content [facility] Con styleCode="Bold"> Medical Cent er Amylase </content>61 IU/L<content styleCode="Italic s"> (30-110 IU/L)</content> ID Date Data Source [facility].[id number] 12/29/2018 11:56:00 PM EDT [facility] -0400 Name Value Range Interpretation Description Data Sup porting Code Source(s) Document(s ) Lipase 23-300 Above high normal <content Orange s [Enzymatic styleCode="Bold Medical activity/vo ">Lipase Center lume] in </content>815 Serum or IU/L H<content Plasma styleCode="Ital ics"> (23-300 IU/L)</content> ID Date Data Source [employer].[id number] 12/29/2018 11:55:00 PM EDT [facility] -0400 Name Value Range Interpretation Description Data Sup porting Code Source(s) Document(s ) Troponin < 0.034 <content [facility] I.cardiac styleCode="Bold Con [Mass/volume ">Troponin I Medical ] in Serum </content>< Center or Plasma 0.012 NG/ML<content styleCode="Ital ics"> (< 0.034 NG/ML)</content > ID Date Data Source [facility].[id number] 12/29/2018 05:15:00 PM EDT [facility] -0400 Name Value Range Interpretation Description Data Sup porting Code Source(s) Document(s ) Cannabinoids <content Saint [Presence] in styleCode="Reuben Con Urine by Screen d">Cannabinoid Medical method >50 ng/mL s Center </content>NEGA TIVE NG/ML (Reference Range: not available)<br/ > ID Date Data Source Urinalysis.[id number] 12/29/2018 05:15:00 PM EDT [facility] 0 Name Value Range Interpretation Description Data Sup porting Code Source(s) Document(s ) Color of Urine YELLOW <content Saint styleCode="[facility] d">Color, Medical Urine Center </content>YELL OW <content styleCode="Katie lics"> (YELLOW )</content> UNK CLEAR <content Saint styleCode="[facility] d">Urine Medical Clarity Center </content>CLARK R <content styleCode="Katie lics"> (CLEAR )</content> Glucose NEGATIVE <content Saint [Mass/volume] styleCode="Reuben Andujar in Urine by d">Urine Medical Test strip Glucose Center </content>NEGA TIVE MG/DL<content styleCode="Katie lics"> (NEGATIVE MG/DL)</conten t> UNK NEGATIVE <content Saint styleCode="Reuben Con d">Urine Medical Bilirubin Center </content>NEGA TIVE <content styleCode="Katie lics"> (NEGATIVE )</content> Ketones NEGATIVE <content [facility] [Mass/volume] styleCode="Reuben Andujar in Urine by d">Urine Medical Test strip Ketone Center </content>15 MG/DL<content styleCode="Katie lics"> (NEGATIVE MG/DL)</conten t> Specific 1.015-1.02 <content [facility] gravity of 5 styleCode="Reuben Andujar Urine by Test d">Urine Medical strip Specific Center [place] </content>1.02 5 <content styleCode="Katie lics"> (1.015-1.025 )</content> Hemoglobin NEGATIVE <content [facility] [Presence] in styleCode="Reuben Alvarezs Urine by Test d">Urine Blood Medical strip </content>TRAC Center E <content styleCode="Katie lics"> (NEGATIVE )</content> Urobilinogen 0.2-1.0 <content Saint [Units/volume] styleCode="Reuben Alvarezs in Urine by d">Urine Medical Test strip Urobilinogen Center </content>1.0 MG/DL<content styleCode="Katie lics"> (0.2-1.0 MG/DL)</conten t> pH of Urine by 4.5-8.0 <content Saint Test strip styleCode="Reuben Con d">Urine pH Medical </content>6.5 Center <content styleCode="Katie lics"> (4.5-8.0 )</content> Protein NEGATIVE <content [facility] [Mass/volume] styleCode="Reuben Con in Urine by d">Urine Medical Test strip Protein Center </content>100 MG/DL<content styleCode="Katie lics"> (NEGATIVE MG/DL)</conten t> Leukocyte NEGATIVE <content [facility] esterase styleCode="Reuben Alvarezs [Presence] in d">Urine Medical Urine by Test Leukocyte Center strip </content>NEGA TIVE <content styleCode="Katie lics"> (NEGATIVE )</content> Nitrite NEGATIVE <content Saint [Presence] in styleCode="Reuben Alvarezs Urine by Test d">Urine Medical strip Nitrite Center </content>NEGA TIVE <content styleCode="Katie lics"> (NEGATIVE )</content> UNK 0-3 <content Saint styleCode="Reuben Con d">Urine Red Medical Blood Cell Center </content>0-3 HPF<content styleCode="Katie lics"> (0-3 HPF)</content> UNK NONE SEEN <content Saint styleCode="Reuben Con d">Epithelial Medical Cell Center </content>2-5 HPF<content styleCode="Katie lics"> (NONE SEEN HPF)</content> ID Date Data Source Liver 12/29/2018 04:45:00 PM EDT [facility] Profile.[id number] Name Value Range Interpretation Description Data Sup porting Code Source(s) Document(s ) Aspartate 17-59 Above high <content [facility] aminotransferase normal styleCode="Bold"> Clint hs [Enzymatic Aspartate Medical activity/volume] Aminotransferase Center in Serum or Plasma (AST) </content>209 IU/L H<content styleCode="Italic s"> (17-59 IU/L)</content> Alkaline 38-126 Above high <content [facility] phosphatase normal styleCode="Bold"> Con [Enzymatic Alkaline Medical activity/volume] Phosphatase (ALP) Cente r in Serum or Plasma </content>148 IU/L H<content styleCode="Italic s"> (38-126 IU/L)</content> Alanine 7-50 Above high <content [facility] aminotransferase normal styleCode="Bold"> Clint hs [Enzymatic Alanine Medical activity/volume] Aminotransferase Center in Serum or Plasma (ALT) </content>103 IU/L H<content styleCode="Italic s"> (7-50 IU/L)</content> Bilirubin.total 0.2-1.3 <content Saint [Mass/volume] in styleCode="Bold"> Clint hs Serum or Plasma Bilirubin Total Medical </content>0.6 Center MG/DL<content styleCode="Italic s"> (0.2-1.3 MG/DL)</content> UNK 0.0-0.3 <content Saint styleCode="Bold"> Con Bilirubin, Direct Medical </content>< 0.2 Center MG/DL<content styleCode="Italic s"> (0.0-0.3 MG/DL)</content> Albumin 3.5-5.0 <content Saint [Mass/volume] in styleCode="Bold"> Clint hs Serum or Plasma Albumin Medical </content>4.3 Center G/DL<content styleCode="Italic s"> (3.5-5.0 G/DL)</content> ID Date Data Source HematologyRou.[id number] 12/29/2018 04:45:00 PM EDT [facility] 0400 Name Value Range Interpretation Description Data Sup porting Code Source(s) Document(s ) Leukocytes 4.4-11.0 <content Saint [#/volume] in styleCode="Bold [facility] Blood by ">White Blood Medical Automated count Cell Count Center </content>6.33 KCUMM<content styleCode="Ital ics"> (4.4-11.0 KCUMM)</content > Hematocrit 41.0-53. Below low normal <content Saint [Volume 0 styleCode="Bold Con Fraction] of ">Hematocrit Medical Blood by </content>39.1 Center Automated count % L<content styleCode="Ital ics"> (41.0-53.0 %)</content> Erythrocytes 4.4-5.9 Below low normal <content Saint [#/volume] in styleCode="Bold Con Blood by ">Red Blood Medical Automated count Cell Count Center </content>4.15 MCUMM L<content styleCode="Ital ics"> (4.4-5.9 MCUMM)</content > Hemoglobin 13.5-17. <content Saint [Mass/volume] in 5 styleCode="Bold Con Blood ">Hemoglobin Medical </content>13.5 Center G/DL<content styleCode="Ital ics"> (13.5-17.5 G/DL)</content> Erythrocyte 11.5-14. Above high <content Saint distribution 5 normal styleCode="Bold Con width [Ratio] by ">Red Cell Medical Automated count Distribution Center Width </content>15.9 % H<content styleCode="Ital ics"> (11.5-14.5 %)</content> Erythrocyte mean 26.0-34. <content Saint corpuscular 0 styleCode="Bold Con hemoglobin ">Mean Medical [Entitic mass] Corposcular Center by Automated Hemoglobin count </content>32.5 PG<content styleCode="Ital ics"> (26.0-34.0 PG)</content> Erythrocyte mean 80.0-100 <content Saint corpuscular .0 styleCode="Bold Con volume [Entitic ">Mean Medical volume] by Corpuscular Center Automated count Volume </content>94.2 FL<content styleCode="Ital ics"> (80.0-100.0 FL)</content> Platelets 130-400 <content Saint [#/volume] in styleCode="Bold Con Blood by ">Platelet Medical Automated count Count Center </content>166 KCUMM<content styleCode="Ital ics"> (130-400 KCUMM)</content > Platelet mean 8.0-11.0 <content Saint volume [Entitic styleCode="Bold Con volume] in Blood ">Mean Platelet Medical by Automated Volume Center count </content>9.8 FL<content styleCode="Ital ics"> (8.0-11.0 FL)</content> Erythrocyte mean 32.0-37. <content Saint corpuscular 0 styleCode="Bold Con hemoglobin ">Mean Corpus. Medical concentration Hgb Center [Mass/volume] by Concentration Automated count (MCHC) </content>34.5 G/DL<content styleCode="Ital ics"> (32.0-37.0 G/DL)</content> UNK 0.0 <content Saint styleCode="Bold Con ">Nucleated Red Medical Blood Cell Center Count </content>0.00 KCUMM<content styleCode="Ital ics"> (0.0 KCUMM)</content > UNK 0 <content Saint styleCode="Bold Con ">Nucleated Red Medical Blood Cell Center </content>0.0 /100<content styleCode="Ital ics"> (0 /100)</content> ID Date Data Source GFR(Creatinine).[id number] 12/29/2018 04:45:00 PM EDT [facility] 0-0400 Name Value Range Interpretation Code Description Data Yue rce(s) Supporting Document(s ) UNK > 60 <content Saint Con styleCode="Bold"> Medical Cent er EGFR </content>143 GFR<content styleCode="Italic s"> (> 60 GFR)</content> ID Date Data Source CHMROUTINECCDA.[id number] 12/29/2018 04:45:00 PM EDT [facility] -0400 Name Value Range Interpretation Description Data Sup porting Code Source(s) Document(s ) Natriuretic < 125 <content Saint peptide.B styleCode="Reuben Con prohormone d">NT Pro BNP Medical N-Terminal </content>22.9 Center [Mass/volume] PG/ML<content in Serum or styleCode="Katie Plasma lics"> (< 125 PG/ML)</conten t> ID Date Data Source [facility].[id number] 12/29/2018 04:45:00 PM EDT [facility] Name Value Range Interpretation Description Data Sup porting Code Source(s) Document(s ) Chloride 98-107 Below low <content Saint [Moles/volume] in normal styleCode="Bold"> [facility] [place] Serum or Plasma Chloride Medical </content>96 Center MEQ/L L<content styleCode="Italic s"> (98-107 MEQ/L)</content> Sodium 137-145 <content Saint [Moles/volume] in styleCode="Bold"> [facility] [place] Serum or Plasma Sodium Medical </content>140 Center MEQ/L<content styleCode="Italic s"> (137-145 MEQ/L)</content> Potassium 3.5-5.3 <content Saint [Moles/volume] in styleCode="Bold"> [facility] [place] Serum or Plasma Potassium Medical </content>3.8 Center MEQ/L<content styleCode="Italic s"> (3.5-5.3 MEQ/L)</content> Calcium 8.4-10. <content Saint [Mass/volume] in 2 styleCode="Bold"> [facility] Serum or Plasma Calcium Medical </content>9.5 Center MG/DL<content styleCode="Italic s"> (8.4-10.2 MG/DL)</content> UNK 9-20 <content Saint styleCode="Bold"> Con BUN </content>12 Medical MG/DL<content Center styleCode="Italic s"> (9-20 MG/DL)</content> Glucose 74-106 <content Saint [Mass/volume] in styleCode="Bold"> [place] hs Serum or Plasma Glucose Medical </content>92 Center MG/DL<content styleCode="Italic s"> (74-106 MG/DL)</content> Carbon dioxide, 22-30 <content Saint total styleCode="Bold"> Con [Moles/volume] in Carbon Dioxide Medical Serum or Plasma </content>30 Center MEQ/L<content styleCode="Italic s"> (22-30 MEQ/L)</content> Creatinine 0.5-1.3 <content Saint [Mass/volume] in styleCode="Bold"> [place] hs Serum or Plasma Creatinine Medical </content>0.6 Center MG/DL<content styleCode="Italic s"> (0.5-1.3 MG/DL)</content> UNK > 60 <content Saint styleCode="Bold"> Con EGFR Medical </content>143 Center GFR<content styleCode="Italic s"> (> 60 GFR)</content> Bilirubin.total 0.2-1.3 <content Saint [Mass/volume] in styleCode="Bold"> [place] hs Serum or Plasma Bilirubin Total Medical </content>0.6 Center MG/DL<content styleCode="Italic s"> (0.2-1.3 MG/DL)</content> Albumin 3.5-5.0 <content Saint [Mass/volume] in styleCode="Bold"> [place] hs Serum or Plasma Albumin Medical </content>4.3 Center G/DL<content styleCode="Italic s"> (3.5-5.0 G/DL)</content> Aspartate 17-59 Above high <content Saint aminotransferase normal styleCode="Bold"> Clint hs [Enzymatic Aspartate Medical activity/volume] Aminotransferase Center in Serum or Plasma (AST) </content>209 IU/L H<content styleCode="Italic s"> (17-59 IU/L)</content> Alkaline 38-126 Above high <content Saint phosphatase normal styleCode="Bold"> Con [Enzymatic Alkaline Medical activity/volume] Phosphatase (ALP) Cente r in Serum or Plasma </content>148 IU/L H<content styleCode="Italic s"> (38-126 IU/L)</content> Alanine 7-50 Above high <content Saint aminotransferase normal styleCode="Bold"> Clint hs [Enzymatic Alanine Medical activity/volume] Aminotransferase Center in Serum or Plasma (ALT) </content>103 IU/L H<content styleCode="Italic s"> (7-50 IU/L)</content> ID Date Data Source Coagulation 12/29/2018 04:45:00 PM [facility] Center Rout.[id number] EDT Name Value Range Interpretation Description Data Sup porting Code Source(s) Document(s ) INR in 0.80-1.2 <content Saint Platelet poor 0 styleCode="Bold" [facility] plasma by >INR Medical Coagulation </content>0.95 Center assay #<content styleCode="Itali cs"> (0.80-1.20 #)</content> UNK 9.0-13.0 <content Saint styleCode="Bold" Con >Protime Medical </content>10.6 Center SEC<content styleCode="Itali cs"> (9.0-13.0 SEC)</content> aPTT in 25.1-36. <content Saint Platelet poor 5 styleCode="Bold" [facility] plasma by >Partial Medical Coagulation Thromboplastin Center assay Time </content>32.6 SEC<content styleCode="Itali cs"> (25.1-36.5 SEC)</content> ID Date Data Source [employer].[id number] 12/29/2018 04:45:00 PM EDT [facility] -0400 Name Value Range Interpretation Description Data Sup porting Code Source(s) Document(s ) Creatine 55-170 Above high normal <content Saint kinase styleCode="Bold Con [Enzymatic ">CK Medical activity/vol </content>375 [place] ume] in IU/L H<content Serum or styleCode="Ital Plasma ics"> (55-170 IU/L)</content> Troponin < 0.034 <content Saint I.cardiac styleCode="Bold Con [Mass/volume ">Troponin I Medical ] in Serum </content>< Center or Plasma 0.012 NG/ML<content styleCode="Ital ics"> (< 0.034 NG/ML)</content > ID Date Data Source LIPID.[id number] 09/12/2018 02:34:[address] [facility] Name Value Range Interpretation Description Data Sup porting Code Source(s) Document(s ) Triglyceride < 150 <content Saint [Mass/volume] in styleCode="[facility] Serum or Plasma d">Triglycerid [facility] Center </content>102 MG/DL<content styleCode="Katie lics"> (< 150 MG/DL)</conten t> Cholesterol -<200 Above high normal <content Saint [Mass/volume] in styleCode="[facility] Serum or Plasma d">Cholesterol Medical </content>319 Center MG/DL H<content styleCode="Katie lics"> (-<200 MG/DL)</conten t> UNK > 60 <content Saint styleCode="[facility] d">HDL- Medical Cholesterol Center </content>137 MG/DL<content styleCode="Katie lics"> (> 60 MG/DL)</conten t> UNK < 100 Above high normal <content Saint styleCode="[facility] d">LDL-Cholest [facility] naa [place] </content>162 MG/DL H<content styleCode="Katie lics"> (< 100 MG/DL)</conten t> ID Date Data Source HematologyRou.[id number] 09/12/2018 02:34:00 PM EDT [facility] 0400 Name Value Range Interpretation Description Data Sup porting Code Source(s) Document(s ) Leukocytes 4.4-11.0 <content Saint [#/volume] in styleCode="Bold Con Blood by ">White Blood Medical Automated count Cell Count Center </content>5.62 KCUMM<content styleCode="Ital ics"> (4.4-11.0 KCUMM)</content > Erythrocyte mean 26.0-34. <content Saint corpuscular 0 styleCode="Bold Con hemoglobin ">Mean Medical [Entitic mass] Corposcular Center by Automated Hemoglobin count </content>33.8 PG<content styleCode="Ital ics"> (26.0-34.0 PG)</content> Hematocrit 41.0-53. Below low normal <content Saint [Volume 0 styleCode="Bold Con Fraction] of ">Hematocrit Medical Blood by </content>37.7 Center Automated count % L<content styleCode="Ital ics"> (41.0-53.0 %)</content> Erythrocytes 4.4-5.9 Below low normal <content Saint [#/volume] in styleCode="Bold Con Blood by ">Red Blood Medical Automated count Cell Count Center </content>3.79 MCUMM L<content styleCode="Ital ics"> (4.4-5.9 MCUMM)</content > Erythrocyte mean 32.0-37. <content Saint corpuscular 0 styleCode="Bold Con hemoglobin ">Mean Corpus. Medical concentration Hgb Center [Mass/volume] by Concentration Automated count (MCHC) </content>34.0 G/DL<content styleCode="Ital ics"> (32.0-37.0 G/DL)</content> Hemoglobin 13.5-17. Below low normal <content Saint [Mass/volume] in 5 styleCode="Bold Con Blood ">Hemoglobin Medical </content>12.8 Center G/DL L<content styleCode="Ital ics"> (13.5-17.5 G/DL)</content> Erythrocyte mean 80.0-100 <content Saint corpuscular .0 styleCode="Bold Con volume [Entitic ">Mean Medical volume] by Corpuscular Center Automated count Volume </content>99.5 FL<content styleCode="Ital ics"> (80.0-100.0 FL)</content> UNK 0.0 <content Saint styleCode="Bold Con ">Nucleated Red Medical Blood Cell Center Count </content>0.00 KCUMM<content styleCode="Ital ics"> (0.0 KCUMM)</content > UNK 0 <content Saint styleCode="Bold Con ">Nucleated Red Medical Blood Cell Center </content>0.0 /100<content styleCode="Ital ics"> (0 /100)</content> Platelet mean 8.0-11.0 <content Saint volume [Entitic styleCode="Bold Con volume] in Blood ">Mean Platelet Medical by Automated Volume Center count </content>9.5 FL<content styleCode="Ital ics"> (8.0-11.0 FL)</content> Platelets 130-400 <content Saint [#/volume] in styleCode="Bold Con Blood by ">Platelet Medical Automated count Count Center </content>276 KCUMM<content styleCode="Ital ics"> (130-400 KCUMM)</content > Erythrocyte 11.5-14. Above high <content distribution 5 normal styleCode="Chiquis Andujar width [Ratio] by ">Red Cell Medical Automated count Distribution Center Width </content>14.8 % H<content styleCode="Ital ics"> (11.5-14.5 %)</content> ID Date Data Source GFR(Creatinine).[id number] 09/12/2018 02:34:00 PM EDT [facility] 0-0400 Name Value Range Interpretation Code Description Data Yue rce(s) Supporting Document(s ) UNK > 60 <content [facility] styleCode="Bold"> Medical Cent er EGFR </content>120 GFR<content styleCode="Italic s"> (> 60 GFR)</content> ID Date Data Source Coagulation 09/12/2018 02:34:00 PM [facility] Rout.[id number] EDT Name Value Range Interpretation Description Data Sup porting Code Source(s) Document(s ) INR in 0.80-1.2 <content Saint Platelet poor 0 styleCode="Bold" Con plasma by >INR Medical Coagulation </content>0.96 Center assay #<content styleCode="Itali cs"> (0.80-1.20 #)</content> UNK 9.0-13.0 <content Saint styleCode="Bold" Con >Protime Medical </content>10.8 Center SEC<content styleCode="Itali cs"> (9.0-13.0 SEC)</content> aPTT in 25.1-36. <content Saint Platelet poor 5 styleCode="Bold" Con plasma by >Partial Medical Coagulation Thromboplastin Center assay Time </content>30.2 SEC<content styleCode="Itali cs"> (25.1-36.5 SEC)</content> UNK < 500 Above upper panic <content Saint limits styleCode="Bold" Con >D-Dimer Medical </content><pascual Center nt styleCode="Bold" >876 ngFEU HH</content><con tent styleCode="Itali cs"> (< 500 ngFEU)</content> ID Date Data Source CardiacMarkers.[id number] 09/12/2018 02:34:00 PM [facility] Name Value Range Interpretation Description Data Sup porting Code Source(s) Document(s ) Troponin < 0.034 <content Saint I.cardiac styleCode="Bold Con [Mass/volume ">Troponin I Medical ] in Serum </content>< Center or Plasma 0.012 NG/ML<content styleCode="Ital ics"> (< 0.034 NG/ML)</content > ID Date Data Source [facility].[id number] 09/12/2018 02:34:00 PM EDT [facility] Name Value Range Interpretation Description Data Sup porting Code Source(s) Document(s ) Potassium 3.5-5.3 <content Saint [Moles/volume] styleCode="Reuben Con in Serum or d">Potassium Medical Plasma </content>3.6 Center MEQ/L<content styleCode="Katie lics"> (3.5-5.3 MEQ/L)</conten t> Sodium 137-145 <content Saint [Moles/volume] styleCode="Reuben Con in Serum or d">Sodium Medical Plasma </content>144 Center MEQ/L<content styleCode="Katie lics"> (137-145 MEQ/L)</conten t> Chloride 98-107 <content Saint [Moles/volume] styleCode="Reuben Con in Serum or d">Chloride Medical Plasma </content>102 Center MEQ/L<content styleCode="Katie lics"> (98-107 MEQ/L)</conten t> Carbon 22-30 <content Saint dioxide, total styleCode="Reuben Con [Moles/volume] d">Carbon Medical in Serum or Dioxide Center Plasma </content>26 MEQ/L<content styleCode="Katie lics"> (22-30 MEQ/L)</conten t> Creatinine 0.5-1.3 <content Saint [Mass/volume] styleCode="Reuben Alvarezs in Serum or d">Creatinine Medical Plasma </content>0.7 Center MG/DL<content styleCode="Katie lics"> (0.5-1.3 MG/DL)</conten t> Glucose 74-106 <content Saint [Mass/volume] styleCode="Reuben Con in Serum or d">Glucose Medical Plasma </content>85 Center MG/DL<content styleCode="Katie lics"> (74-106 MG/DL)</conten t> Calcium 8.4-10.2 <content Saint [Mass/volume] styleCode="Reuben Alvarezs in Serum or d">Calcium Medical Plasma </content>9.5 Center MG/DL<content styleCode="Katie lics"> (8.4-10.2 MG/DL)</conten t> UNK > 60 <content Saint styleCode="Reuben Alvarezs d">EGFR Medical </content>120 Center GFR<content styleCode="Katie lics"> (> 60 GFR)</content> UNK 9-20 <content Saint styleCode="Reuben Alvarezs d">BUN Medical </content>14 Center MG/DL<content styleCode="Katie lics"> (9-20 MG/DL)</conten t> ID Date Data Source Urinalysis.[id number] 09/12/2018 02:27:00 PM EDT [facility] 0 Name Value Range Interpretation Description Data Sup porting Code Source(s) Document(s ) Color of Urine YELLOW <content Saint styleCode="Reuben Alvarezs d">Color, Medical Urine Center </content>YELL OW <content styleCode="Katie lics"> (YELLOW )</content> UNK NEGATIVE <content Saint styleCode="[facility] d">Urine Medical Bilirubin Center </content>SMAL L <content styleCode="Katie lics"> (NEGATIVE )</content> UNK CLEAR <content Saint styleCode="Reuben Con d">Urine Medical Clarity Center </content>CLARK R <content styleCode="Katie lics"> (CLEAR )</content> Glucose NEGATIVE <content Saint [Mass/volume] styleCode="Reuben Con in Urine by d">Urine Medical Test strip Glucose Center </content>NEGA TIVE MG/DL<content styleCode="Katie lics"> (NEGATIVE MG/DL)</conten t> Specific 1.015-1.02 <content Saint gravity of 5 styleCode="Reuben Con Urine by Test d">Urine Medical strip Specific Center [place] </content>1.02 5 <content styleCode="Katie lics"> (1.015-1.025 )</content> Ketones NEGATIVE <content Saint [Mass/volume] styleCode="Reuben Con in Urine by d">Urine Medical Test strip Ketone Center </content>40 MG/DL<content styleCode="Katie lics"> (NEGATIVE MG/DL)</conten t> Protein NEGATIVE <content Saint [Mass/volume] styleCode="Reuben Con in Urine by d">Urine Medical Test strip Protein Center </content>30 MG/DL<content styleCode="Katie lics"> (NEGATIVE MG/DL)</conten t> Hemoglobin NEGATIVE <content Saint [Presence] in styleCode="Reuben Alvarezs Urine by Test d">Urine Blood Medical strip </content>NEGA Center TIVE <content styleCode="Katie lics"> (NEGATIVE )</content> pH of Urine by 4.5-8.0 <content Saint Test strip styleCode="Reuben Con d">Urine pH Medical </content>6.5 Center <content styleCode="Katie lics"> (4.5-8.0 )</content> Urobilinogen 0.2-1.0 <content Saint [Units/volume] styleCode="Reuben Con in Urine by d">Urine Medical Test strip Urobilinogen Center </content>1.0 MG/DL<content styleCode="Katie lics"> (0.2-1.0 MG/DL)</conten t> Leukocyte NEGATIVE <content Saint esterase styleCode="Reuben Andujar [Presence] in d">Urine Medical Urine by Test Leukocyte Center strip </content>NEGA TIVE <content styleCode="Katie lics"> (NEGATIVE )</content> Nitrite NEGATIVE <content Saint [Presence] in styleCode="Reuben Andujar Urine by Test d">Urine Medical strip Nitrite Center </content>NEGA TIVE <content styleCode="Katie lics"> (NEGATIVE )</content> UNK 0-3 <content Saint styleCode="Reuben Alvarezs d">Urine Red Medical Blood Cell Center </content>0-3 HPF<content styleCode="Katie lics"> (0-3 HPF)</content> UNK NONE SEEN <content Saint styleCode="Reuben Alvarezs d">Urine Mucus Medical </content>FEW Center LPF<content styleCode="Katie lics"> (NONE SEEN LPF)</content> ID Date Data Source CHMROUTINECCDA.[id number] 09/12/2018 02:27:00 PM EDT [facility] -0400 Name Value Range Interpretation Description Data Sup porting Code Source(s) Document(s ) Cannabinoids <content Saint [Presence] in styleCode="Reuben Andujar Urine by Screen d">Cannabinoid Medical method >50 ng/mL s Center </content>PRES UMPTIVE POSITIVE NG/ML (Reference Range: not available)<br/ > ID Date Data Source Urinalysis.[id number] 09/03/2018 12:42:00 PM EDT [facility] 0 Name Value Range Interpretation Description Data Sup porting Code Source(s) Document(s ) UNK CLEAR <content Saint styleCode="Reuben Andujar d">Urine Medical Clarity Center </content>CLARK R <content styleCode="Katie lics"> (CLEAR )</content> Glucose NEGATIVE <content Saint [Mass/volume] styleCode="Reuben Andujar in Urine by d">Urine Medical Test strip Glucose Center </content>NEGA TIVE MG/DL<content styleCode="Katie lics"> (NEGATIVE MG/DL)</conten t> Color of Urine YELLOW <content Saint styleCode="Reuben Con d">Color, Medical Urine Center </content>YELL OW <content styleCode="Katie lics"> (YELLOW )</content> UNK NEGATIVE <content Saint styleCode="Reuben Con d">Urine Medical Bilirubin Center </content>SMAL L <content styleCode="Katie lics"> (NEGATIVE )</content> Ketones NEGATIVE <content Saint [Mass/volume] styleCode="Reuben Alvarezs in Urine by d">Urine Medical Test strip Ketone Center </content>NEGA TIVE MG/DL<content styleCode="Katie lics"> (NEGATIVE MG/DL)</conten t> Specific 1.015-1.02 <content Saint gravity of 5 styleCode="Reuben Alvarezs Urine by Test d">Urine Medical strip Specific Center [place] </content>1.02 5 <content styleCode="Katie lics"> (1.015-1.025 )</content> pH of Urine by 4.5-8.0 <content Saint Test strip styleCode="Reuben Con d">Urine pH Medical </content>6.5 Center <content styleCode="Katie lics"> (4.5-8.0 )</content> Hemoglobin NEGATIVE <content Saint [Presence] in styleCode="Reuben Alvarezs Urine by Test d">Urine Blood Medical strip </content>NEGA Center TIVE <content styleCode="Katie lics"> (NEGATIVE )</content> Nitrite NEGATIVE <content Saint [Presence] in styleCode="Reuben Con Urine by Test d">Urine Medical strip Nitrite Center </content>NEGA TIVE <content styleCode="Katie lics"> (NEGATIVE )</content> Urobilinogen 0.2-1.0 Above high <content Saint [Units/volume] normal styleCode="Reuben Con in Urine by d">Urine Medical Test strip Urobilinogen Center </content>2.0 MG/DL H<content styleCode="Katie lics"> (0.2-1.0 MG/DL)</conten t> Protein NEGATIVE <content Saint [Mass/volume] styleCode="Reuben Andujar in Urine by d">Urine Medical Test strip Protein Center </content>TRAC E MG/DL<content styleCode="Katie lics"> (NEGATIVE MG/DL)</conten t> UNK 0-3 <content Saint styleCode="Reuben Alvarezs d">Urine Red Medical Blood Cell Center </content>0-3 HPF<content styleCode="Katie lics"> (0-3 HPF)</content> Leukocyte NEGATIVE <content Saint esterase styleCode="Reuben Andujar [Presence] in d">Urine Medical Urine by Test Leukocyte Center strip </content>NEGA TIVE <content styleCode="Katie lics"> (NEGATIVE )</content> ID Date Data Source HematologyRou.[id number] 09/03/2018 12:27:00 PM EDT [facility] 0400 Name Value Range Interpretation Description Data Sup porting Code Source(s) Document(s ) Leukocytes 4.4-11.0 <content Saint [#/volume] in styleCode="Reuben Andujar Blood by d">White Blood [facility] Automated Cell Count Center count </content>6.63 KCUMM<content styleCode="Katie lics"> (4.4-11.0 KCUMM)</conten t> ID Date Data Source LIPID.[id number] 09/03/2018 11:54:[address] [facility] Name Value Range Interpretation Description Data Sup porting Code Source(s) Document(s ) Cholesterol -<200 Above high normal <content Saint [Mass/volume] in styleCode="Reuben Andujar Serum or Plasma d">Cholesterol Medical </content>269 Center MG/DL H<content styleCode="Katie lics"> (-<200 MG/DL)</conten t> Triglyceride < 150 <content Saint [Mass/volume] in styleCode="Reuben Alvarezs Serum or Plasma d">Triglycerid [facility] es Center </content>130 MG/DL<content styleCode="Katie lics"> (< 150 MG/DL)</conten t> UNK < 100 Above high normal <content Saint styleCode="Reuben Alvarezs d">LDL-Cholest Medical naa Center </content>128 MG/DL H<content styleCode="Katie lics"> (< 100 MG/DL)</conten t> UNK > 60 <content Saint styleCode="Reuben Con d">HDL- Medical Cholesterol Center </content>115 MG/DL<content styleCode="Katie lics"> (> 60 MG/DL)</conten t> ID Date Data Source HematologyRou.[id number] 09/03/2018 11:54:00 AM EDT [facility] 0400 Name Value Range Interpretation Description Data Sup porting Code Source(s) Document(s ) Hemoglobin 13.5-17. Below low normal <content Saint [Mass/volume] in 5 styleCode="Bold Con Blood ">Hemoglobin Medical </content>12.1 Center G/DL L<content styleCode="Ital ics"> (13.5-17.5 G/DL)</content> Erythrocytes 4.4-5.9 Below low normal <content Saint [#/volume] in styleCode="Bold Con Blood by ">Red Blood Medical Automated count Cell Count Center </content>3.59 MCUMM L<content styleCode="Ital ics"> (4.4-5.9 MCUMM)</content > Erythrocyte mean 32.0-37. <content Saint corpuscular 0 styleCode="Bold Con hemoglobin ">Mean Corpus. Medical concentration Hgb Center [Mass/volume] by Concentration Automated count (MCHC) </content>33.5 G/DL<content styleCode="Ital ics"> (32.0-37.0 G/DL)</content> Erythrocyte mean 80.0-100 <content Saint corpuscular .0 styleCode="Bold Con volume [Entitic ">Mean Medical volume] by Corpuscular Center Automated count Volume </content>100.6 FL<content styleCode="Ital ics"> (80.0-100.0 FL)</content> Erythrocyte mean 26.0-34. <content Saint corpuscular 0 styleCode="Bold Con hemoglobin ">Mean Medical [Entitic mass] Corposcular Center by Automated Hemoglobin count </content>33.7 PG<content styleCode="Ital ics"> (26.0-34.0 PG)</content> Hematocrit 41.0-53. Below low normal <content Saint [Volume 0 styleCode="Bold Con Fraction] of ">Hematocrit Medical Blood by </content>36.1 Center Automated count % L<content styleCode="Ital ics"> (41.0-53.0 %)</content> Platelet mean 8.0-11.0 <content Saint volume [Entitic styleCode="Bold Con volume] in Blood ">Mean Platelet Medical by Automated Volume Center count </content>9.8 FL<content styleCode="Ital ics"> (8.0-11.0 FL)</content> Platelets 130-400 <content Saint [#/volume] in styleCode="Bold Con Blood by ">Platelet Medical Automated count Count Center </content>286 KCUMM<content styleCode="Ital ics"> (130-400 KCUMM)</content > Erythrocyte 11.5-14. Above high <content Saint distribution 5 normal styleCode="Bold Con width [Ratio] by ">Red Cell Medical Automated count Distribution Center Width </content>14.8 % H<content styleCode="Ital ics"> (11.5-14.5 %)</content> UNK 0 <content Saint styleCode="Bold Con ">Nucleated Red Medical Blood Cell Center </content>0.0 /100<content styleCode="Ital ics"> (0 /100)</content> UNK 0.0 <content [facility] styleCode="Bold Con ">Nucleated Red Medical Blood Cell Center Count </content>0.00 KCUMM<content styleCode="Ital ics"> (0.0 KCUMM)</content > ID Date Data Source GFR(Creatinine).[id number] 09/03/2018 11:54:00 AM EDT [facility] 0-0400 Name Value Range Interpretation Code Description Data Yue rce(s) Supporting Document(s ) UNK > 60 <content [facility] styleCode="Bold"> Medical Cent er EGFR </content>143 GFR<content styleCode="Italic s"> (> 60 GFR)</content> ID Date Data Source Coagulation 09/03/2018 11:54:00 AM [facility] Rout.[id number] EDT Name Value Range Interpretation Description Data Sup porting Code Source(s) Document(s ) INR in 0.80-1.2 <content [facility] Platelet poor 0 styleCode="Bold" Con plasma by >INR Medical Coagulation </content>0.96 Center assay #<content styleCode="Itali cs"> (0.80-1.20 #)</content> UNK 9.0-13.0 <content [facility] styleCode="Bold" Con >Protime Medical </content>10.8 Center SEC<content styleCode="Itali cs"> (9.0-13.0 SEC)</content> aPTT in 25.1-36. <content [facility] Platelet poor 5 styleCode="Bold" Con plasma by >Partial Medical Coagulation Thromboplastin Center assay Time </content>30.5 SEC<content styleCode="Itali cs"> (25.1-36.5 SEC)</content> UNK < 500 Above upper panic <content [facility] limits styleCode="Bold" Con >D-Dimer Medical </content><pascual Center nt styleCode="Bold" >719 ngFEU HH</content><con tent styleCode="Itali cs"> (< 500 ngFEU)</content> ID Date Data Source [employer].[id number] 09/03/2018 11:54:00 AM EDT Tim nt [facility] -0400 Name Value Range Interpretation Description Data Sup porting Code Source(s) Document(s ) Creatine 55-170 <content [facility] kinase styleCode="Bold Con [Enzymatic ">CK Medical activity/vol </content>131 Center ume] in IU/L<content Serum or styleCode="Ital Plasma ics"> (55-170 IU/L)</content> Troponin < 0.034 <content [facility] I.cardiac styleCode="Bold Con [Mass/volume ">Troponin I Medical ] in Serum </content>< Center or Plasma 0.012 NG/ML<content styleCode="Ital ics"> (< 0.034 NG/ML)</content > ID Date Data Source [facility].[id number] 09/03/2018 11:54:00 AM EDT [facility] Name Value Range Interpretation Description Data Sup porting Code Source(s) Document(s ) Carbon 22-30 <content [facility] dioxide, total styleCode="Reuben Con [Moles/volume] d">Carbon Medical in Serum or Dioxide Center Plasma </content>27 MEQ/L<content styleCode="Katie lics"> (22-30 MEQ/L)</conten t> Chloride 98-107 <content [facility] [Moles/volume] styleCode="Reuben Con in Serum or d">Chloride Medical Plasma </content>105 Center MEQ/L<content styleCode="Katie lics"> (98-107 MEQ/L)</conten t> Potassium 3.5-5.3 Below low normal <content [facility] [Moles/volume] styleCode="Reuben Con in Serum or d">Potassium Medical Plasma </content>3.3 Center MEQ/L L<content styleCode="Katie lics"> (3.5-5.3 MEQ/L)</conten t> Sodium 137-145 <content [facility] [Moles/volume] styleCode="Reuben Con in Serum or d">Sodium Medical Plasma </content>144 Center MEQ/L<content styleCode="Katie lics"> (137-145 MEQ/L)</conten t> UNK 9-20 <content [facility] styleCode="Reuben Con d">BUN Medical </content>13 Center MG/DL<content styleCode="Katie lics"> (9-20 MG/DL)</conten t> Creatinine 0.5-1.3 <content [facility] [Mass/volume] styleCode="Reuben Con in Serum or d">Creatinine Medical Plasma </content>0.6 Center MG/DL<content styleCode="Katie lics"> (0.5-1.3 MG/DL)</conten t> Glucose 74-106 <content [Mass/volume] styleCode="Reuben Andujar in Serum or d">Glucose Medical Plasma </content>90 Center MG/DL<content styleCode="Katie lics"> (74-106 MG/DL)</conten t> UNK > 60 <content styleCode="Reuben Andujar d">EGFR Medical </content>143 Center GFR<content styleCode="Katie lics"> (> 60 GFR)</content> Calcium 8.4-10.2 <content [Mass/volume] styleCode="Reuben Andujar in Serum or d">Calcium Medical Plasma </content>9.4 Center MG/DL<content styleCode="Katie lics"> (8.4-10.2 MG/DL)</conten t> ID Date Data Source Coagulation Rout 03/16/2018 12:41:00 PM EST [facility] Name Value Range Interpretation Description Data Sup porting Code Source(s) Document(s ) aPTT in 25.1-36. Above high normal <content Platelet poor 5 styleCode="Bold" Con plasma by >Partial Medical Coagulation Thromboplastin Center assay Time </content>55.5 SEC H<content styleCode="Itali cs"> (25.1-36.5 SEC)</content> INR in 0.80-1.2 <content Platelet poor 0 styleCode="Bold" Con plasma by >INR Medical Coagulation </content>0.98 Center assay #<content styleCode="Itali cs"> (0.80-1.20 #)</content> UNK 9.0-13.0 <content styleCode="Bold" Con >Protime Medical </content>11.1 Center SEC<content styleCode="Itali cs"> (9.0-13.0 SEC)</content> aPTT in 25.1-36. Above high normal <content Platelet poor 5 styleCode="Bold" Con plasma by >Partial Medical Coagulation Thromboplastin Center assay Time </content>42.4 SEC H<content styleCode="Itali cs"> (25.1-36.5 SEC)</content> ID Date Data Source Liver Profile 03/16/2018 05:15:00 AM [facility] Name Value Range Interpretation Description Data Sup porting Code Source(s) Document(s ) Aspartate 17-59 Above high <content [facility] aminotransferase normal styleCode="Bold"> Clint hs [Enzymatic Aspartate Medical activity/volume] Aminotransferase Center in Serum or Plasma (AST) </content>76 IU/L H<content styleCode="Italic s"> (17-59 IU/L)</content> Albumin 3.5-5.0 <content [facility] [Mass/volume] in styleCode="Bold"> Clint hs Serum or Plasma Albumin Medical </content>3.7 Center G/DL<content styleCode="Italic s"> (3.5-5.0 G/DL)</content> Alanine 7-50 Above high <content [facility] aminotransferase normal styleCode="Bold"> Clint hs [Enzymatic Alanine Medical activity/volume] Aminotransferase Center in Serum or Plasma (ALT) </content>151 IU/L H<content styleCode="Italic s"> (7-50 IU/L)</content> Bilirubin.total 0.2-1.3 Above high <content [facility] [Mass/volume] in normal styleCode="Bold"> Clint hs Serum or Plasma Bilirubin Total Medical </content>1.5 Center MG/DL H<content styleCode="Italic s"> (0.2-1.3 MG/DL)</content> Alkaline 38-126 Above high <content [facility] phosphatase normal styleCode="Bold"> Con [Enzymatic Alkaline Medical activity/volume] Phosphatase (ALP) Cente r in Serum or Plasma </content>219 IU/L H<content styleCode="Italic s"> (38-126 IU/L)</content> ID Date Data Source CHMROUTINECCDA 03/16/2018 05:15:00 AM [facility] Name Value Range Interpretation Description Data Sup porting Code Source(s) Document(s ) Magnesium 1.6-2.3 <content [facility] [Mass/volume] styleCode="Reuben Con in Serum or d">Magnesium Medical Plasma </content>1.7 Center MG/DL<content styleCode="Katie lics"> (1.6-2.3 MG/DL)</conten t> Phosphate 2.5-4.5 Above high normal <content [facility] [Mass/volume] styleCode="Reuben Con in Serum or d">Phosphorus Medical Plasma </content>4.6 Center MG/DL H<content styleCode="Katie lics"> (2.5-4.5 MG/DL)</conten t> UNK >= 1.0 <content [facility] styleCode="Reuben Con d">AG Ratio Medical </content>1.3 Center NM<content styleCode="Katie lics"> (>= 1.0 NM)</content> Magnesium 1.6-2.3 <content [facility] [Mass/volume] styleCode="Reuben Con in Serum or d">Magnesium Medical Plasma </content>1.8 Center MG/DL<content styleCode="Katie lics"> (1.6-2.3 MG/DL)</conten t> UNK 2.3-3.5 <content [facility] styleCode="Reuben Con d">Globulin Medical </content>2.8 Center G/DL<content styleCode="Katie lics"> (2.3-3.5 G/DL)</content > Protein 6.3-8.2 <content [facility] [Mass/volume] styleCode="Reuben Con in Serum or d">Total Medical Plasma Protein Center </content>6.5 G/DL<content styleCode="Katie lics"> (6.3-8.2 G/DL)</content > Phosphate 2.5-4.5 <content [facility] [Mass/volume] styleCode="Reuben Con in Serum or d">Phosphorus Medical Plasma </content>3.7 Center MG/DL<content styleCode="Katie lics"> (2.5-4.5 MG/DL)</conten t> ID Date Data Source [facility] 03/15/2018 07:00:00 PM [facility] Name Value Range Interpretation Code Description Data Yue rce(s) Supporting Document(s ) UNK 0-0.034 <content [facility] styleCode="Bold" Medical Cente r >Troponin 4HR </content>< 0.012 NG/ML<content styleCode="Itali cs"> (0-0.034 NG/ML)</content> ID Date Data Source Urinalysis 03/15/2018 06:25:00 PM [facility] Name Value Range Interpretation Description Data Sup porting Code Source(s) Document(s ) Glucose NEGATIVE <content [facility] [Mass/volume] styleCode="Reuben Con in Urine by d">Urine Medical Test strip Glucose Center </content>NEGA TIVE MG/DL<content styleCode="Katie lics"> (NEGATIVE MG/DL)</conten t> UNK NEGATIVE <content [facility] styleCode="Reuben Con d">Urine Medical Bilirubin Center </content>NEGA TIVE <content styleCode="Katie lics"> (NEGATIVE )</content> Color of Urine YELLOW <content [facility] styleCode="Reuben Con d">Color, Medical Urine Center </content>YELL OW <content styleCode="Katie lics"> (YELLOW )</content> Ketones NEGATIVE <content [facility] [Mass/volume] styleCode="Reuben Con in Urine by d">Urine Medical Test strip Ketone Center </content>NEGA TIVE MG/DL<content styleCode="Katie lics"> (NEGATIVE MG/DL)</conten t> UNK CLEAR <content [facility] styleCode="Reuben Con d">Urine Medical Clarity Center </content>CLARK R <content styleCode="Katie lics"> (CLEAR )</content> pH of Urine by 4.5-8.0 <content [facility] Test strip styleCode="Reuben Con d">Urine pH Medical </content>6.0 Center NM<content styleCode="Katie lics"> (4.5-8.0 NM)</content> Specific 1.015-1.02 Below low normal <content [facility] gravity of 5 styleCode="Reuben Con Urine by Test d">Urine Medical strip Specific Center [place] </content>1.01 0 NM L<content styleCode="Katie lics"> (1.015-1.025 NM)</content> Protein NEGATIVE <content [facility] [Mass/volume] styleCode="Reuben Con in Urine by d">Urine Medical Test strip Protein Center </content>NEGA TIVE MG/DL<content styleCode="Katie lics"> (NEGATIVE MG/DL)</conten t> Hemoglobin NEGATIVE <content [facility] [Presence] in styleCode="Reuben Con Urine by Test d">Urine Blood Medical strip </content>TRAC Center E <content styleCode="Katie lics"> (NEGATIVE )</content> Leukocyte NEGATIVE <content [facility] esterase styleCode="Reuben Con [Presence] in d">Urine Medical Urine by Test Leukocyte Center strip </content>NEGA TIVE <content styleCode="Katie lics"> (NEGATIVE )</content> UNK 0-3 <content [facility] styleCode="Reuben Con d">Urine Red Medical Blood Cell Center </content>0-3 HPF<content styleCode="Katie lics"> (0-3 HPF)</content> Urobilinogen 0.2-1.0 <content Saint [Units/volume] styleCode="Reuben Con in Urine by d">Urine Medical Test strip Urobilinogen Center </content>0.2 MG/DL<content styleCode="Katie lics"> (0.2-1.0 MG/DL)</conten t> Nitrite NEGATIVE <content [facility] [Presence] in styleCode="Reuben Con Urine by Test d">Urine Medical strip Nitrite Center </content>NEGA TIVE <content styleCode="Katie lics"> (NEGATIVE )</content> UNK <content [facility] styleCode="Reuben Con d">Epithelial Medical Cell Center </content>0-2 LPF (Reference Range: not available)<br/ > UNK 0-3 <content [facility] styleCode="Reuben Con d">Urine White Medical Blood Cell Center </content>0-3 HPF<content styleCode="Katie lics"> (0-3 HPF)</content> ID Date Data Source Stools 03/15/2018 05:57:00 PM EST [facility] Name Value Range Interpretation Code Description Data Yue rce(s) Supporting Document(s ) UNK NEGATIVE <content [facility] styleCode="Bold" Medical Cente r >Guaiac, Occult Blood </content>NEGATI VE <content styleCode="Itali cs"> (NEGATIVE )</content> ID Date Data Source LIPID 03/15/2018 03:20:00 PM EST [facility] Name Value Range Interpretation Description Data Sup porting Code Source(s) Document(s ) Triglyceride < 150 <content Saint [Mass/volume] in styleCode="[facility] Serum or Plasma d">Triglycerid [facility] </content>141 MG/DL<content styleCode="Katie lics"> (< 150 MG/DL)</conten t> UNK > 60 <content Saint styleCode="[facility] d">HDL- Medical Cholesterol Center </content>103 MG/DL<content styleCode="Katie lics"> (> 60 MG/DL)</conten t> Cholesterol -<200 Above high normal <content Saint [Mass/volume] in styleCode="[facility] Serum or Plasma d">Cholesterol Medical </content>215 Center MG/DL H<content styleCode="Katie lics"> (-<200 MG/DL)</conten t> UNK < 100 <content Saint styleCode="[facility] d">LDL[facility] </content>84 MG/DL<content styleCode="Katie lics"> (< 100 MG/DL)</conten t> ID Date Data Source HematologyRou 03/05/2018 01:58:00 PM EST [facility] Name Value Range Interpretation Description Data Sup porting Code Source(s) Document(s ) Leukocytes 4.4-11.0 <content [facility] [#/volume] in styleCode="[facility] Blood by ">White Blood Medical Automated count Cell Count Center </content>10.48 KCUMM<content styleCode="Ital ics"> (4.4-11.0 KCUMM)</content > Erythrocytes 4.4-5.9 Below low normal <content [facility] [#/volume] in styleCode="Bold Con Blood by ">Red Blood Medical Automated count Cell Count Center </content>4.02 MCUMM L<content styleCode="Ital ics"> (4.4-5.9 MCUMM)</content > Hemoglobin 13.5-17. Below low normal <content Saint [Mass/volume] in 5 styleCode="Bold Con Blood ">Hemoglobin Medical </content>13.1 Center G/DL L<content styleCode="Ital ics"> (13.5-17.5 G/DL)</content> Erythrocyte mean 26.0-34. <content [facility] corpuscular 0 styleCode="Bold Con hemoglobin ">Mean Medical [Entitic mass] Corposcular Center by Automated Hemoglobin count </content>32.6 PG<content styleCode="Ital ics"> (26.0-34.0 PG)</content> Hematocrit 41.0-53. Below low normal <content [facility] [Volume 0 styleCode="Bold Con Fraction] of ">Hematocrit Medical Blood by </content>39.2 Center Automated count % L<content styleCode="Ital ics"> (41.0-53.0 %)</content> Erythrocyte mean 80.0-100 <content [facility] corpuscular .0 styleCode="Bold Con volume [Entitic ">Mean Medical volume] by Corpuscular Center Automated count Volume </content>97.5 FL<content styleCode="Ital ics"> (80.0-100.0 FL)</content> Platelets 130-400 <content Saint [#/volume] in styleCode="Bold Con Blood by ">Platelet Medical Automated count Count Center </content>364 KCUMM<content styleCode="Ital ics"> (130-400 KCUMM)</content > Erythrocyte 11.5-14. <content [facility] distribution 5 styleCode="Bold Con width [Ratio] by ">Red Cell Medical Automated count Distribution Center Width </content>14.2 %<content styleCode="Ital ics"> (11.5-14.5 %)</content> Erythrocyte mean 32.0-37. <content [facility] corpuscular 0 styleCode="Bold Con hemoglobin ">Mean Corpus. Medical concentration Hgb Center [Mass/volume] by Concentration Automated count (MCHC) </content>33.4 G/DL<content styleCode="Ital ics"> (32.0-37.0 G/DL)</content> UNK 0 <content Saint styleCode="Bold Con ">Nucleated Red Medical Blood Cell Center </content>0.0 /100<content styleCode="Ital ics"> (0 /100)</content> Platelet mean 8.0-11.0 <content Saint volume [Entitic styleCode="Bold Con volume] in Blood ">Mean Platelet Medical by Automated Volume Center count </content>10.6 FL<content styleCode="Ital ics"> (8.0-11.0 FL)</content> UNK 0.0 <content Saint styleCode="Bold Con ">Nucleated Red Medical Blood Cell Center Count </content>0.00 KCUMM<content styleCode="Ital ics"> (0.0 KCUMM)</content > Erythrocyte mean 80.0-100 <content [facility] corpuscular .0 styleCode="Bold Con volume [Entitic ">Mean Medical volume] by Corpuscular Center Automated count Volume </content>99.5 FL<content styleCode="Ital ics"> (80.0-100.0 FL)</content> Hematocrit 41.0-53. Below low normal <content Saint [Volume 0 styleCode="Bold Con Fraction] of ">Hematocrit Medical Blood by </content>36.6 Center Automated count % L<content styleCode="Ital ics"> (41.0-53.0 %)</content> Hemoglobin 13.5-17. Below low normal <content Saint [Mass/volume] in 5 styleCode="Bold Con Blood ">Hemoglobin Medical </content>12.2 Center G/DL L<content styleCode="Ital ics"> (13.5-17.5 G/DL)</content> Erythrocytes 4.4-5.9 Below low normal <content Saint [#/volume] in styleCode="Bold Con Blood by ">Red Blood Medical Automated count Cell Count Center </content>3.68 MCUMM L<content styleCode="Ital ics"> (4.4-5.9 MCUMM)</content > Leukocytes 4.4-11.0 <content Saint [#/volume] in styleCode="Bold Con Blood by ">White Blood Medical Automated count Cell Count Center </content>10.25 KCUMM<content styleCode="Ital ics"> (4.4-11.0 KCUMM)</content > Platelets 130-400 <content Saint [#/volume] in styleCode="Bold Con Blood by ">Platelet Medical Automated count Count Center </content>357 KCUMM<content styleCode="Ital ics"> (130-400 KCUMM)</content > Erythrocyte 11.5-14. <content [facility] distribution 5 styleCode="Bold Con width [Ratio] by ">Red Cell Medical Automated count Distribution Center Width </content>14.4 %<content styleCode="Ital ics"> (11.5-14.5 %)</content> Erythrocyte mean 32.0-37. <content [facility] corpuscular 0 styleCode="Bold Con hemoglobin ">Mean Corpus. Medical concentration Hgb Center [Mass/volume] by Concentration Automated count (MCHC) </content>33.3 G/DL<content styleCode="Ital ics"> (32.0-37.0 G/DL)</content> Erythrocyte mean 26.0-34. <content [facility] corpuscular 0 styleCode="Bold Con hemoglobin ">Mean Medical [Entitic mass] Corposcular Center by Automated Hemoglobin count </content>33.2 PG<content styleCode="Ital ics"> (26.0-34.0 PG)</content> UNK 0.0 <content [facility] styleCode="Bold Con ">Nucleated Red Medical Blood Cell Center Count </content>0.00 KCUMM<content styleCode="Ital ics"> (0.0 KCUMM)</content > UNK 0 <content Saint styleCode="Bold Con ">Nucleated Red Medical Blood Cell Center </content>0.0 /100<content styleCode="Ital ics"> (0 /100)</content> Platelet mean 8.0-11.0 <content Saint volume [Entitic styleCode="Bold Con volume] in Blood ">Mean Platelet Medical by Automated Volume Center count </content>10.1 FL<content styleCode="Ital ics"> (8.0-11.0 FL)</content> Hematocrit 41.0-53. Below low normal <content Saint [Volume 0 styleCode="Bold Con Fraction] of ">Hematocrit Medical Blood by </content>36.2 Center Automated count % L<content styleCode="Ital ics"> (41.0-53.0 %)</content> Hemoglobin 13.5-17. Below low normal <content Saint [Mass/volume] in 5 styleCode="Bold Con Blood ">Hemoglobin Medical </content>12.3 Center G/DL L<content styleCode="Ital ics"> (13.5-17.5 G/DL)</content> Erythrocytes 4.4-5.9 Below low normal <content Saint [#/volume] in styleCode="Bold Con Blood by ">Red Blood Medical Automated count Cell Count Center </content>3.72 MCUMM L<content styleCode="Ital ics"> (4.4-5.9 MCUMM)</content > Leukocytes 4.4-11.0 <content Saint [#/volume] in styleCode="Bold Con Blood by ">White Blood Medical Automated count Cell Count Center </content>8.87 KCUMM<content styleCode="Ital ics"> (4.4-11.0 KCUMM)</content > Platelets 130-400 <content Saint [#/volume] in styleCode="Bold Con Blood by ">Platelet Medical Automated count Count Center </content>394 KCUMM<content styleCode="Ital ics"> (130-400 KCUMM)</content > Erythrocyte 11.5-14. <content Saint distribution 5 styleCode="Bold Con width [Ratio] by ">Red Cell Medical Automated count Distribution Center Width </content>14.3 %<content styleCode="Ital ics"> (11.5-14.5 %)</content> Erythrocyte mean 32.0-37. <content [facility] corpuscular 0 styleCode="Bold Con hemoglobin ">Mean Corpus. Medical concentration Hgb Center [Mass/volume] by Concentration Automated count (MCHC) </content>34.0 G/DL<content styleCode="Ital ics"> (32.0-37.0 G/DL)</content> Erythrocyte mean 26.0-34. <content [facility] corpuscular 0 styleCode="Bold Con hemoglobin ">Mean Medical [Entitic mass] Corposcular Center by Automated Hemoglobin count </content>33.1 PG<content styleCode="Ital ics"> (26.0-34.0 PG)</content> Erythrocyte mean 80.0-100 <content [facility] corpuscular .0 styleCode="Bold Con volume [Entitic ">Mean Medical volume] by Corpuscular Center Automated count Volume </content>97.3 FL<content styleCode="Ital ics"> (80.0-100.0 FL)</content> UNK 0.0 <content Saint styleCode="Bold Con ">Nucleated Red Medical Blood Cell Center Count </content>0.00 KCUMM<content styleCode="Ital ics"> (0.0 KCUMM)</content > UNK 0 <content Saint styleCode="Bold Con ">Nucleated Red Medical Blood Cell Center </content>0.0 /100<content styleCode="Ital ics"> (0 /100)</content> Platelet mean 8.0-11.0 <content Saint volume [Entitic styleCode="Bold Con volume] in Blood ">Mean Platelet Medical by Automated Volume Center count </content>9.5 FL<content styleCode="Ital ics"> (8.0-11.0 FL)</content> ID Date Data Source GFR(Creatinine) 03/05/2018 01:58:00 PM [facility] Name Value Range Interpretation Code Description Data Yue rce(s) Supporting Document(s ) UNK > 60 <content [facility] styleCode="Bold"> Medical Cent er EGFR </content>103 GFR<content styleCode="Italic s"> (> 60 GFR)</content> UNK > 60 <content [facility] styleCode="Bold"> Medical Cent er EGFR </content>103 GFR<content styleCode="Italic s"> (> 60 GFR)</content> UNK > 60 <content [facility] styleCode="Bold"> Medical Cent er EGFR </content>120 GFR<content styleCode="Italic s"> (> 60 GFR)</content> ID Date Data Source BMP 03/05/2018 01:58:00 PM [facility] Name Value Range Interpretation Description Data Sup porting Code Source(s) Document(s ) Sodium 137-145 <content Saint [Moles/volume] in styleCode="Bold"> [facility] Serum or Plasma Sodium Medical </content>138 Center MEQ/L<content styleCode="Italic s"> (137-145 MEQ/L)</content> Chloride 98-107 <content Saint [Moles/volume] in styleCode="Bold"> [facility] [place] Serum or Plasma Chloride Medical </content>99 Center MEQ/L<content styleCode="Italic s"> (98-107 MEQ/L)</content> Potassium 3.5-5.3 <content Saint [Moles/volume] in styleCode="Bold"> Flex [facility] [place] Serum or Plasma Potassium Medical </content>4.0 Center MEQ/L<content styleCode="Italic s"> (3.5-5.3 MEQ/L)</content> UNK 9-20 <content Saint styleCode="Bold"> Con BUN </content>13 Medical MG/DL<content Center styleCode="Italic s"> (9-20 MG/DL)</content> Carbon dioxide, 22-30 Above high <content Saint total normal styleCode="Bold"> Con [Moles/volume] in Carbon Dioxide Medical Serum or Plasma </content>31 Center MEQ/L H<content styleCode="Italic s"> (22-30 MEQ/L)</content> Creatinine 0.5-1.3 <content Saint [Mass/volume] in styleCode="Bold"> [facility] hs Serum or Plasma Creatinine Medical </content>0.8 Center MG/DL<content styleCode="Italic s"> (0.5-1.3 MG/DL)</content> UNK > 60 <content Saint styleCode="Bold"> Con EGFR Medical </content>103 Center GFR<content styleCode="Italic s"> (> 60 GFR)</content> Calcium 8.4-10. <content Saint [Mass/volume] in 2 styleCode="Bold"> Clint hs Serum or Plasma Calcium Medical </content>9.7 Center MG/DL<content styleCode="Italic s"> (8.4-10.2 MG/DL)</content> Glucose 74-106 <content Saint [Mass/volume] in styleCode="Bold"> [facility] hs Serum or Plasma Glucose Medical </content>103 Center MG/DL<content styleCode="Italic s"> (74-106 MG/DL)</content> Sodium 137-145 <content Saint [Moles/volume] in styleCode="Bold"> [facility] Serum or Plasma Sodium Medical </content>137 Center MEQ/L<content styleCode="Italic s"> (137-145 MEQ/L)</content> Creatinine 0.5-1.3 <content Saint [Mass/volume] in styleCode="Bold"> [facility] hs Serum or Plasma Creatinine Medical </content>0.8 Center MG/DL<content styleCode="Italic s"> (0.5-1.3 MG/DL)</content> UNK 9-20 <content Saint styleCode="Bold"> Con BUN </content>10 Medical MG/DL<content Center styleCode="Italic s"> (9-20 MG/DL)</content> Carbon dioxide, 22-30 Above high <content Saint total normal styleCode="Bold"> Con [Moles/volume] in Carbon Dioxide Medical Serum or Plasma </content>33 Center MEQ/L H<content styleCode="Italic s"> (22-30 MEQ/L)</content> Chloride 98-107 <content Saint [Moles/volume] in styleCode="Bold"> [facility] Serum or Plasma Chloride Medical </content>100 Center MEQ/L<content styleCode="Italic s"> (98-107 MEQ/L)</content> Potassium 3.5-5.3 <content Saint [Moles/volume] in styleCode="Bold"> [facility]s Serum or Plasma Potassium Medical </content>4.6 Center MEQ/L<content styleCode="Italic s"> (3.5-5.3 MEQ/L)</content> Alanine 7-50 Above high <content Saint aminotransferase normal styleCode="Bold"> [facility] [Enzymatic Alanine Medical activity/volume] Aminotransferase Center in Serum or Plasma (ALT) </content>151 IU/L H<content styleCode="Italic s"> (7-50 IU/L)</content> Aspartate 17-59 Above high <content [facility] aminotransferase normal styleCode="Bold"> [facility] [Enzymatic Aspartate Medical activity/volume] Aminotransferase Center in Serum or Plasma (AST) </content>76 IU/L H<content styleCode="Italic s"> (17-59 IU/L)</content> UNK > 60 <content Saint styleCode="Bold"> [facility] EGFR Medical </content>103 Center GFR<content styleCode="Italic s"> (> 60 GFR)</content> Calcium 8.4-10. <content [facility] [Mass/volume] in 2 styleCode="Bold"> [facility] Serum or Plasma Calcium Medical </content>9.9 Center MG/DL<content styleCode="Italic s"> (8.4-10.2 MG/DL)</content> Glucose 74-106 <content [facility] [Mass/volume] in styleCode="Bold"> [facility] Serum or Plasma Glucose Medical </content>103 Center MG/DL<content styleCode="Italic s"> (74-106 MG/DL)</content> Albumin 3.5-5.0 <content [facility] [Mass/volume] in styleCode="Bold"> [facility] Serum or Plasma Albumin Medical </content>3.7 Center G/DL<content styleCode="Italic s"> (3.5-5.0 G/DL)</content> Bilirubin.total 0.2-1.3 Above high <content [facility] [Mass/volume] in normal styleCode="Bold"> [facility] Serum or Plasma Bilirubin Total Medical </content>1.5 Center MG/DL H<content styleCode="Italic s"> (0.2-1.3 MG/DL)</content> Alkaline 38-126 Above high <content [facility] phosphatase normal styleCode="Bold"> Con [Enzymatic Alkaline Medical activity/volume] Phosphatase (ALP) Cente r in Serum or Plasma </content>219 IU/L H<content styleCode="Italic s"> (38-126 IU/L)</content> Potassium 3.5-5.3 <content [facility] [Moles/volume] in styleCode="Bold"> [facility] [place] Serum or Plasma Potassium Medical </content>3.5 Center MEQ/L<content styleCode="Italic s"> (3.5-5.3 MEQ/L)</content> Sodium 137-145 <content [facility] [Moles/volume] in styleCode="Bold"> [facility] [place] Serum or Plasma Sodium Medical </content>140 Center MEQ/L<content styleCode="Italic s"> (137-145 MEQ/L)</content> Creatinine 0.5-1.3 <content [facility] [Mass/volume] in styleCode="Bold"> [facility] Serum or Plasma Creatinine Medical </content>0.7 Center MG/DL<content styleCode="Italic s"> (0.5-1.3 MG/DL)</content> UNK 9-20 <content Saint styleCode="Bold"> Con BUN </content>12 Medical MG/DL<content Center styleCode="Italic s"> (9-20 MG/DL)</content> Carbon dioxide, 22-30 <content [facility] total styleCode="Bold"> Con [Moles/volume] in Carbon Dioxide Medical Serum or Plasma </content>29 Center MEQ/L<content styleCode="Italic s"> (22-30 MEQ/L)</content> Chloride 98-107 <content [facility] [Moles/volume] in styleCode="Bold"> [facility] Serum or Plasma Chloride Medical </content>103 Center MEQ/L<content styleCode="Italic s"> (98-107 MEQ/L)</content> UNK > 60 <content Saint styleCode="Bold"> [facility] EGFR Medical </content>120 Center GFR<content styleCode="Italic s"> (> 60 GFR)</content> Calcium 8.4-10. <content [facility] [Mass/volume] in 2 styleCode="Bold"> [facility] Serum or Plasma Calcium Medical </content>9.7 Center MG/DL<content styleCode="Italic s"> (8.4-10.2 MG/DL)</content> Glucose 74-106 <content [facility] [Mass/volume] in styleCode="Bold"> [facility] Serum or Plasma Glucose Medical </content>90 Center MG/DL<content styleCode="Italic s"> (74-106 MG/DL)</content> Procedure Social History Code Duration Value Status Description Data Source(s ) Caffeine Use 11/09/2019 completed NEXTGEN (Tim nt Details 12:00:00 AM [facility]) Smoking 11/09/2019 Unknown if ever completed Unknown if ever NEXT GEN ([facility] 12:00:00 AM smoked smoked [facility]) Alcohol Use 10/17/2019 completed beer 2 beers NEXTGEN (Sa int Details 12:00:00 AM weekly [facility]) 10/17/2019 Cigarette completed Cigarette smoker NEXTGEN ([facility] 12:00:00 AM smoker [facility]) Caffeine Use 09/06/2019 completed NEXTGEN (Tim nt Details 12:00:00 AM [facility]) Smoking 04/20/2019 Daily Smoker completed Daily Smoker [facility] [place] 02:46:00 PM Medical Cente r EST Smoking 04/20/2019 Daily Smoker completed Daily Smoker [facility] [place] 02:02:00 PM Medical Cente r EST Smoking 04/20/2019 Daily Smoker completed Daily Smoker [facility] 01:57:00 PM Medical Cente r EST Smoking 02/24/2019 Daily Smoker completed Daily Smoker [facility] 02:35:00 PM Medical Cente r EST Smoking 02/24/2019 Daily Smoker completed Daily Smoker [facility] 01:55:00 PM Medical Cente r EST Smoking 02/24/2019 Daily Smoker completed Daily Smoker [facility] 01:48:00 PM Medical Cente r EST Smoking 01/08/2019 Daily Smoker completed Daily Smoker [facility] 07:19:00 PM Medical Cente r EST Smoking 01/08/2019 Daily Smoker completed Daily Smoker [facility] 03:57:00 PM Medical Cente r EST Smoking 01/08/2019 Daily Smoker completed Daily Smoker [facility] 12:52:00 PM Medical Cente r EST Smoking 01/08/2019 Daily Smoker completed Daily Smoker [facility] 12[facility]47:00 PM Medical Cente r EST Smoking 12/29/2018 Daily Smoker completed Daily Smoker [facility] 09:00:00 PM Medical Cente r EDT Smoking 12/29/2018 Daily Smoker completed Daily Smoker [facility] 06:23:00 PM Medical Cente r EDT Smoking 12/29/2018 Daily Smoker completed Daily Smoker [facility] 04:19:00 PM Medical Cente r EDT Smoking 12/29/2018 Daily Smoker completed Daily Smoker [facility] 03:25:00 PM Medical Cente r EDT Smoking 09/12/2018 Daily Smoker completed Daily Smoker [facility] 05:05:00 PM Medical Cente r EDT Smoking 09/12/2018 Daily Smoker completed Daily Smoker [facility] 02:08:00 PM Medical Cente r EDT Smoking 09/12/2018 Daily Smoker completed Daily Smoker [facility] 01:47:00 PM Medical Cente r EDT Smoking 09/03/2018 Daily Smoker completed Daily Smoker [facility] 11:44:00 AM Medical Cente r EDT Smoking 09/03/2018 Daily Smoker completed Daily Smoker [facility] 11:40:00 AM Medical Cente r EDT Smoking 09/03/2018 Daily Smoker completed Daily Smoker [facility] 11:31:00 AM Medical Cente r EDT Smoking 03/16/2018 Daily Smoker completed Daily Smoker [facility] 05:00:00 PM Medical Cente r EST Smoking 03/15/2018 Daily Smoker completed Daily Smoker [facility] 11:02:00 PM Medical Cente r EST Smoking 03/15/2018 Daily Smoker completed Daily Smoker [facility] 06:23:00 PM Medical Cente r EST Smoking 03/15/2018 Daily Smoker completed Daily Smoker [facility] 03:28:00 PM Medical Cente r EST Smoking 03/15/2018 Daily Smoker completed Daily Smoker [facility] 02:59:00 PM Medical Cente r EST Smoking 03/15/2018 Daily Smoker completed Daily Smoker [facility] 02:41:00 PM Medical Cente r EST Smoking 03/05/2018 Daily Smoker completed Daily Smoker [facility] 01:40:00 PM Medical Cente r EST Smoking 03/05/2018 Daily Smoker completed Daily Smoker [facility] 01:37:00 PM Medical Cente r EST Smoking 03/05/2018 Daily Smoker completed Daily Smoker [facility] 01:25:00 PM Medical Cente r EST Smoking Unknown if ever completed Unknown if ever Allison Andujar smoked smoked [facility] Center Smoking Unknown if ever completed Unknown if ever [facility] smoked smoked [facility] Vital Signs ID Date Data Source UNK Name Value Range Interpretation Code Description Data Source(s) Oxygen 98 % 98 % NEXTGEN saturation in ([facility] by Pulse Medical oximetry [place]) Body mass index 26.40 kg/m2 Overweight 26.40 kg/m2 NEXTGEN (BMI) [Ratio] ([facility]) Respiratory rate 20 /min 20 /min [facility] ([facility]) Body temperature 36.17 Lisa 36.17 Lisa [facility] ([facility]) Heart rate 75 /min 75 /min [facility] ([facility]) Diastolic blood 88 mm[Hg] 88 mm[Hg] NEXTGEN pressure ([facility]) Systolic blood 137 mm[Hg] 137 mm[Hg] [facility] pressure ([facility]) Body weight 81.102 kg 81.102 kg [facility] ([facility]) Body height 175.26 cm 175.26 cm [facility] ([facility]) Oxygen 99 % 99 % NEXTGEN saturation in ([facility] by Pulse Medical oximetry [place]) Body mass index 26.29 kg/m2 Overweight 26.29 kg/m2 NEXTGEN (BMI) [Ratio] ([facility]) Respiratory rate 18 /min 18 /min [facility] ([facility]) Body temperature 36.50 Lisa 36.50 Lisa NEXTGEN ([facility]) Heart rate 88 /min 88 /min [facility] ([facility]) Diastolic blood 85 mm[Hg] 85 mm[Hg] [facility] pressure ([facility]) Systolic blood 121 mm[Hg] 121 mm[Hg] [facility] pressure ([facility]) Body weight 80.739 kg 80.739 kg [facility] ([facility]) Body height 175.26 cm 175.26 cm [facility] ([facility]) Body temperature 36.273046 Lisa 36.298432 [facility] Respiratory rate 19 /min 19 /min [facility] Oxygen 98 % 98 % [place] saturation in Medical Arterial blood Center by Pulse oximetry Heart rate 78 /min 78 /min [facility] Diastolic blood 80 mm[Hg] 80 mm[Hg] [facility] pressure Medical Center Systolic blood 140 mm[Hg] 140 mm[Hg] [facility] Center Body weight 81.879431 kg 81.458947 kg [facility] Measured Medical Center Respiratory rate 18 /min 18 /min [facility] Oxygen 98 % 98 % [place] saturation in Medical Arterial blood Center by Pulse oximetry Heart rate 96 /min 96 /min [facility] Body height 175.237614 cm [address].8[address] [facility] Diastolic blood mm[Hg] [facility] pressure Medical Center Systolic blood mm[Hg] [facility] Center Body mass index 26.5 kg/m2 26.5 kg/m2 [facility] (BMI) [Ratio] Medical Center Body weight 75.770632 kg 75.106152 kg [facility] Measured Medical Center Body temperature 36.694749 Lisa 36.207449 [facility] Respiratory rate 18 /min 18 /min [facility] Oxygen 98 % 98 % [place] saturation in Medical Arterial blood Center by Pulse oximetry Heart rate 99 /min 99 /min [facility] Body height 175.1524[address] [facility] Diastolic blood 82 mm[Hg] 82 mm[Hg] [facility] Medical Center Systolic blood 147 mm[Hg] 147 mm[Hg] [facility] Body mass index 24.4 kg/m2 24.4 kg/m2 [facility] (BMI) [Ratio] Medical Center Diastolic blood 97 mmHg 97 mmHg [facility] Systolic blood 144 mmHg 144 mmHg [facility] Respiratory rate 18 bpm 18 bpm [facility] Heart rate 90 bpm 90 bpm [facility] Body temperature 98.2 Fahrenheit 98.2 Fahrenhei t [facility] Diastolic blood 94 mmHg 94 mmHg [facility] Systolic blood 157 mmHg 157 mmHg [facility] Respiratory rate 18 bpm 18 bpm [facility] Heart rate 111 bpm 111 bpm [facility] Body temperature 99.7 Fahrenheit 99.7 Fahrenhei t [facility] Diastolic blood 89 mmHg 89 mmHg [facility] Systolic blood 132 mmHg 132 mmHg [facility] Respiratory rate 18 bpm 18 bpm [facility] Heart rate 106 bpm 106 bpm [facility] Body temperature 99.0 Fahrenheit 99.0 Fahrenhei t [facility] Diastolic blood 86 mmHg 86 mmHg [facility] Systolic blood 142 mmHg 142 mmHg [facility] Respiratory rate 18 bpm 18 bpm [facility] Heart rate 87 bpm 87 bpm [facility] Body temperature 96.2 Fahrenheit 96.2 Fahrenhei t [facility] Diastolic blood 83 mmHg 83 mmHg [facility] Systolic blood 137 mmHg 137 mmHg [facility] Respiratory rate 18 bpm 18 bpm [facility] Heart rate 86 bpm 86 bpm [facility] Body temperature 98.5 Fahrenheit 98.5 Fahrenhei t [facility] Diastolic blood 86 mmHg 86 mmHg [facility] Systolic blood 147 mmHg 147 mmHg [facility] Respiratory rate 18 bpm 18 bpm [facility] Heart rate 91 bpm 91 bpm [facility] Body temperature 98.0 Fahrenheit 98.0 Fahrenhei t [facility] Diastolic blood 81 mmHg 81 mmHg [facility] Systolic blood 133 mmHg 133 mmHg [facility] Respiratory rate 18 bpm 18 bpm [facility] Heart rate 85 bpm 85 bpm [facility] Body temperature 98.1 Fahrenheit 98.1 Fahrenhei t [facility] Diastolic blood 84 mmHg 84 mmHg [facility] Systolic blood 130 mmHg 130 mmHg [facility] Respiratory rate 18 bpm 18 bpm [facility] Heart rate 96 bpm 96 bpm [facility] Body temperature 98.3 Fahrenheit 98.3 Fahrenhei t [facility] Body weight 170 lbs 170 lbs [facility] Diastolic blood 86 mmHg 86 mmHg [facility] Systolic blood 123 mmHg 123 mmHg [facility] Respiratory rate 16 bpm 16 bpm [facility] Heart rate 100 bpm 100 bpm [facility] Body temperature 99.6 Fahrenheit 99.6 Fahrenhei t [facility] Body weight 170 lbs 170 lbs [facility] Diastolic blood 86 mmHg 86 mmHg [facility] Systolic blood 123 mmHg 123 mmHg [facility] Respiratory rate 16 bpm 16 bpm [facility] Heart rate 100 bpm 100 bpm [facility] Body temperature 99.6 Fahrenheit 99.6 Fahrenhei t [facility] Diastolic blood 90 mmHg 90 mmHg [facility] Systolic blood 126 mmHg 126 mmHg [facility] Respiratory rate 18 bpm 18 bpm [facility] Heart rate 84 bpm 84 bpm [facility] Body temperature 98.6 Fahrenheit 98.6 Fahrenhei t [facility] Diastolic blood 85 mmHg 85 mmHg [facility] Systolic blood 155 mmHg 155 mmHg [facility] Respiratory rate 18 bpm 18 bpm [facility] Heart rate 91 bpm 91 bpm [facility] Body temperature 97.5 Fahrenheit 97.5 Fahrenhei t [facility] Diastolic blood 75 mmHg 75 mmHg [facility] Systolic blood 116 mmHg 116 mmHg [facility] Respiratory rate 16 bpm 16 bpm [facility] Heart rate 100 bpm 100 bpm [facility] Body temperature 98.6 Fahrenheit 98.6 Fahrenhei t [facility] Diastolic blood 91 mmHg 91 mmHg [facility] Systolic blood 136 mmHg 136 mmHg [facility] Respiratory rate 18 bpm 18 bpm [facility] Heart rate 91 bpm 91 bpm [facility] Body temperature 98.2 Fahrenheit 98.2 Fahrenhei t [facility] Diastolic blood 95 mmHg 95 mmHg [facility] Systolic blood 151 mmHg 151 mmHg [facility] Respiratory rate 18 bpm 18 bpm [facility] Heart rate 97 bpm 97 bpm [facility] Body temperature 98.6 Fahrenheit 98.6 Fahrenhei t [facility] Diastolic blood 73 mmHg 73 mmHg [facility] Systolic blood 111 mmHg 111 mmHg [facility] Respiratory rate 18 bpm 18 bpm [facility] Heart rate 94 bpm 94 bpm [facility] Body weight 168 lbs 168 lbs [facility] Diastolic blood 82 mmHg 82 mmHg [facility] Systolic blood 131 mmHg 131 mmHg [facility] Respiratory rate 18 bpm 18 bpm [facility] Heart rate 80 bpm 80 bpm [facility] Body temperature 98.5 Fahrenheit 98.5 Fahrenhei t [facility] Diastolic blood 90 mmHg 90 mmHg [facility] Systolic blood 132 mmHg 132 mmHg [facility] Respiratory rate 18 bpm 18 bpm [facility] Heart rate 95 bpm 95 bpm [facility] Body temperature 97.8 Fahrenheit 97.8 Fahrenhei t [facility] Diastolic blood 88 mmHg 88 mmHg [facility] Systolic blood 130 mmHg 130 mmHg [facility] Respiratory rate 18 bpm 18 bpm [facility] Heart rate 100 bpm 100 bpm [facility] Body temperature 98.0 Fahrenheit 98.0 Fahrenhei t [facility] Body temperature 35.455644 Lisa 35.645490 [facility] Respiratory rate 18 /min 18 /min [facility] Heart rate 85 /min 85 /min [facility] Diastolic blood 81 mm[Hg] 81 mm[Hg] [facility] Systolic blood 125 mm[Hg] 125 mm[Hg] [facility] Body temperature 36.695735 Lisa 36.421179 [facility] Respiratory rate 18 /min 18 /min [facility] Oxygen 95 % 95 % [facility] saturation in Medical Arterial blood Center by Pulse oximetry Heart rate 83 /min 83 /min [facility] Diastolic blood 58 mm[Hg] 58 mm[Hg] [facility] Systolic blood 125 mm[Hg] 125 mm[Hg] [facility] Body temperature 36.770865 Lisa 36.938380 [facility] Respiratory rate 20 /min 20 /min [facility] Heart rate 95 /min 95 /min [facility] Diastolic blood 82 mm[Hg] 82 mm[Hg] [facility] Systolic blood 141 mm[Hg] 141 mm[Hg] [facility] Body temperature 36.525290 Lisa 36.422132 [facility] Respiratory rate 20 /min 20 /min [facility] Heart rate 81 /min 81 /min [facility] Diastolic blood 66 mm[Hg] 66 mm[Hg] [facility] pressure Medical Center Systolic blood 115 mm[Hg] 115 mm[Hg] [facility] Body temperature 37.689819 Lisa 37.295767 [facility] Respiratory rate 20 /min 20 /min [facility] Heart rate 76 /min 76 /min [facility] Diastolic blood 80 mm[Hg] 80 mm[Hg] [facility] [place] Systolic blood 130 mm[Hg] 130 mm[Hg] [facility] [place] Body weight 80.106715 kg 80.448807 kg [facility] Measured Medical Center Body height 175.838409 cm [address].29[address] [facility] Body mass index 26.34 kg/m2 26.34 kg/m2 [facility] (BMI) [Ratio] Medical Center Body temperature 36.282124 Lisa 36.260976 [facility] Respiratory rate 20 /min 20 /min [facility] Heart rate 75 /min 75 /min [facility] Diastolic blood 97 mm[Hg] 97 mm[Hg] [facility] [place] Systolic blood 134 mm[Hg] 134 mm[Hg] [facility] Body weight 80.728559 kg 80.564359 kg [facility] Measured Medical Center Body height 175.276353 cm 175.069672 cm [facility] Body mass index 26.34 kg/m2 26.34 kg/m2 [facility] (BMI) [Ratio] Medical Center Oxygen 96 % 96 % [facility] saturation in Medical Arterial blood Center by Pulse oximetry Body temperature 36.863799 Lisa 36.114740 [facility] Respiratory rate 20 /min 20 /min [facility] Heart rate 95 /min 95 /min [facility] Diastolic blood 89 mm[Hg] 89 mm[Hg] [facility] Systolic blood 137 mm[Hg] 137 mm[Hg] [facility] Center Body weight 76.902509 kg 76.633915 kg [facility] Measured Medical Center Body height 175.880928 cm 175.937645 cm [facility] Body mass index 24.84 kg/m2 24.84 kg/m2 [facility] (BMI) [Ratio] Medical Center Body temperature 36.672506 Lisa 36.828395 [facility] Respiratory rate 18 /min 18 /min [facility] Heart rate 102 /min 102 /min [facility] Diastolic blood 78 mm[Hg] 78 mm[Hg] [facility] Systolic blood 126 mm[Hg] 126 mm[Hg] [facility] Center Oxygen 97 % 97 % [facility] saturation in Medical Arterial blood Center by Pulse oximetry Body temperature 36.952230 Lisa 36.299570 [facility] Respiratory rate 18 /min 18 /min [facility] Heart rate 108 /min 108 /min [facility] Diastolic blood 73 mm[Hg] 73 mm[Hg] [facility] Systolic blood 117 mm[Hg] 117 mm[Hg] [facility] Center Oxygen 98 % 98 % [facility] saturation in Medical Arterial blood Center by Pulse oximetry Body temperature 36.592438 Lisa 36.737390 [facility] Respiratory rate 18 /min 18 /min [facility] Heart rate 103 /min 103 /min [facility] Diastolic blood 75 mm[Hg] 75 mm[Hg] [facility] Systolic blood 115 mm[Hg] 115 mm[Hg] [facility] Center Body weight 72.669039 kg 72.958792 kg [facility] Measured Medical Center Oxygen 98 % 98 % [facility] saturation in Medical Arterial blood Center by Pulse oximetry Body height 175.355699 cm [address].5416[address] [facility] Body mass index 23.6 kg/m2 23.6 kg/m2 [facility] (BMI) [Ratio] Medical Center Body temperature 36.777569 Lisa 36.637211 [facility] Respiratory rate 20 /min 20 /min [facility] Heart rate 74 /min 74 /min [facility] Diastolic blood 78 mm[Hg] 78 mm[Hg] [facility] Systolic blood 115 mm[Hg] 115 mm[Hg] [facility] Body temperature 36.708567 Lisa 36.857932 [facility] Respiratory rate 20 /min 20 /min [facility] Heart rate 88 /min 88 /min [facility] Diastolic blood 70 mm[Hg] 70 mm[Hg] [facility] Systolic blood 117 mm[Hg] 117 mm[Hg] [facility] Body temperature 36.744377 Lisa 36.265442 [facility] Respiratory rate 20 /min 20 /min [facility] Heart rate 75 /min 75 /min [facility] Diastolic blood 84 mm[Hg] 84 mm[Hg] [facility] [place] Systolic blood 127 mm[Hg] 127 mm[Hg] [facility] Systolic blood 133 mm[Hg] 133 mm[Hg] [facility] Body temperature 36.198284 Lisa 36.914138 [facility] Respiratory rate 20 /min 20 /min [facility] Heart rate 96 /min 96 /min [facility] Diastolic blood 84 mm[Hg] 84 mm[Hg] [facility] [place] Body temperature 36.065305 Lisa 36.351344 [facility] Respiratory rate 20 /min 20 /min [facility] Heart rate 78 /min 78 /min [facility] Diastolic blood 89 mm[Hg] 89 mm[Hg] [facility] Systolic blood 132 mm[Hg] 132 mm[Hg] [facility] Body weight 81.121802 kg 81.607774 kg [facility] Body height 175.284826 [address] [facility] Body mass index 26.52 kg/m2 26.52 kg/m2 [facility] (BMI) [Ratio] Medical Center Oxygen 97 % 97 % [facility] saturation in Medical Arterial blood Center by Pulse oximetry Body temperature 36.935779 Lisa 36.655815 [facility] Respiratory rate 20 /min 20 /min [facility] Heart rate 87 /min 87 /min [facility] Diastolic blood 81 mm[Hg] 81 mm[Hg] [facility] pressure Medical Center Systolic blood 136 mm[Hg] 136 mm[Hg] [facility] Center Body temperature 36.454325 Lisa 36.519979 [facility] Respiratory rate 18 /min 18 /min [facility] Heart rate 85 /min 85 /min [facility] Diastolic blood 83 mm[Hg] 83 mm[Hg] [facility] pressure Medical Center Systolic blood 125 mm[Hg] 125 mm[Hg] [facility] Body temperature 37.427299 Lisa 37.364569 [facility] Respiratory rate 18 /min 18 /min [facility] Heart rate 90 /min 90 /min [facility] Diastolic blood 83 mm[Hg] 83 mm[Hg] [facility] Systolic blood 123 mm[Hg] 123 mm[Hg] [facility] Body temperature 36.291803 Lisa 36.472740 [facility] Respiratory rate 20 /min 20 /min [facility] Heart rate 87 /min 87 /min [facility] Diastolic blood 87 mm[Hg] 87 mm[Hg] [facility] Systolic blood 136 mm[Hg] 136 mm[Hg] [facility] Body weight 81.032612 kg 81.418276 kg [facility] Oxygen 100 % 100 % [facility] saturation in Medical Arterial blood Center by Pulse oximetry Body height 175.402028 cm 175.919200 [address] [facility] Body mass index 26.58 kg/m2 26.58 kg/m2 [facility] (BMI) [Ratio] Medical Center Body temperature 36.634824 Lisa 36.636118 [facility] Respiratory rate 19 /min 19 /min [facility] Heart rate 87 /min 87 /min [facility] Diastolic blood 98 mm[Hg] 98 mm[Hg] [facility] Systolic blood 151 mm[Hg] 151 mm[Hg] [facility] Oxygen 97 % 97 % [facility] saturation in Medical Arterial blood Center by Pulse oximetry Oxygen 98 % 98 % [facility] saturation in Medical Arterial blood Center by Pulse oximetry Body temperature 36.962730 Lisa 36.669697 [facility] Respiratory rate 17 /min 17 /min [facility] Oxygen 98 % 98 % [facility] saturation in Medical Arterial blood Center by Pulse oximetry Heart rate 78 /min 78 /min [facility] Diastolic blood 83 mm[Hg] 83 mm[Hg] [facility] pressure Medical Center Systolic blood 134 mm[Hg] 134 mm[Hg] [facility] Body weight 82.872641 kg 82.112908 kg [facility] Measured [facility] Center Body temperature 36.627328 Lisa 36.611146 [facility] Respiratory rate 18 /min 18 /min [facility] Oxygen 98 % 98 % [place] saturation in Medical Arterial blood Center by Pulse oximetry Heart rate 78 /min 78 /min [facility] Body height 177.635250 cm 177.514809 cm [facility] Diastolic blood 82 mm[Hg] 82 mm[Hg] [facility] pressure Medical Center Systolic blood 144 mm[Hg] 144 mm[Hg] [facility] Body mass index 25.9 kg/m2 25.9 kg/m2 [facility] (BMI) [Ratio] Medical Center Body temperature 36.939978 Lisa 36.412174 [facility] Respiratory rate 20 /min 20 /min [facility] Heart rate 78 /min 78 /min [facility] Diastolic blood 78 mm[Hg] 78 mm[Hg] [facility] pressure Medical Center Systolic blood 158 mm[Hg] 158 mm[Hg] [facility] Body weight 90.151216 kg 90.952451 kg [facility] Body temperature 36.425693 Lisa 36.479501 [facility] Respiratory rate 18 /min 18 /min [facility] Oxygen 100 % 100 % [place] saturation in Medical Arterial blood Center by Pulse oximetry Heart rate 91 /min 91 /min [facility] Body height 175.001548 cm 175.043952 [address] [facility] Diastolic blood 95 mm[Hg] 95 mm[Hg] [facility] Systolic blood 148 mm[Hg] 148 mm[Hg] [facility] Body mass index 29.3 kg/m2 29.3 kg/m2 [facility] (BMI) [Ratio] Medical Center Body temperature 36.028248 Lisa 36.581720 [facility] Respiratory rate 19 /min 19 /min [facility] Oxygen 98 % 98 % [facility] saturation in Medical Arterial blood Center by Pulse oximetry Heart rate 70 /min 70 /min [facility] Diastolic blood 88 mm[Hg] 88 mm[Hg] [facility] Systolic blood 132 mm[Hg] 132 mm[Hg] [facility] Body temperature 36.441724 Lisa 36.979461 [facility] Respiratory rate 17 /min 17 /min [facility] Oxygen 98 % 98 % [facility] saturation in Medical Arterial blood Center by Pulse oximetry Heart rate 73 /min 73 /min [facility] Diastolic blood 92 mm[Hg] 92 mm[Hg] [facility] Systolic blood 143 mm[Hg] 143 mm[Hg] [facility] Body temperature 36.791043 Lisa 36.056039 [facility] Respiratory rate 16 /min 16 /min [facility] Oxygen 98 % 98 % [facility] saturation in Medical Arterial blood Center by Pulse oximetry Heart rate 92 /min 92 /min [facility] Diastolic blood 98 mm[Hg] 98 mm[Hg] [facility] Systolic blood 158 mm[Hg] 158 mm[Hg] [facility] Diastolic blood 85 mm[Hg] 85 mm[Hg] [facility] pressure ([facility]) Systolic blood 143 mm[Hg] 143 mm[Hg] [facility] pressure ([facility]) Oxygen 97 % 97 % [facility] saturation in ([facility] by Pulse Medical oximetry Center) Body mass index 27.61 kg/m2 Overweight 27.61 kg/m2 [facility] (BMI) [Ratio] ([facility]) Respiratory rate 19 /min 19 /min [facility] ([facility]) Body temperature 36.44 Lisa 36.44 Lisa [facility]) Heart rate 100 /min 100 /min [facility] ([facility]) Diastolic blood 93 mm[Hg] 93 mm[Hg] [facility] pressure ([facility]) Systolic blood 151 mm[Hg] 151 mm[Hg] [facility] ([facility]) Body weight 84.822 kg 84.822 kg [facility]) Body height 175.26 cm 175.26 cm [facility] ([facility]) Oxygen 99 % 99 % [facility] saturation in ([facility] by Pulse Medical oximetry Center) Body mass index 27.11 kg/m2 Overweight 27.11 kg/m2 [facility] (BMI) [Ratio] ([facility]) Respiratory rate 18 /min 18 /min [facility] ([facility]) Body temperature 36.61 Lisa 36.61 Lisa [facility] ([facility]) Heart rate 86 /min 86 /min [facility] ([facility]) Diastolic blood 73 mm[Hg] 73 mm[Hg] [facility] pressure ([facility]) Systolic blood 126 mm[Hg] 126 mm[Hg] [facility] pressure ([facility]) Body weight 83.280 kg 83.280 kg [facility]) Body height 175.26 cm 175.26 cm [facility]) Body temperature 36.441815 Lisa 36.710141 [facility] Respiratory rate 20 /min 20 /min [facility] Heart rate 80 /min 80 /min [facility] Diastolic blood 96 mm[Hg] 96 mm[Hg] [facility] Systolic blood 132 mm[Hg] 132 mm[Hg] [facility] Body temperature 36.582880 Lisa 36.767515 [facility] Respiratory rate 20 /min 20 /min [facility] Heart rate 75 /min 75 /min [facility] Diastolic blood 89 mm[Hg] 89 mm[Hg] [facility] Systolic blood 134 mm[Hg] 134 mm[Hg] [facility] Body temperature 36.769697 Lisa 36.258382 [facility] Respiratory rate 18 /min 18 /min [facility] Heart rate 73 /min 73 /min [facility] Diastolic blood 79 mm[Hg] 79 mm[Hg] [facility] pressure Medical Center Systolic blood 119 mm[Hg] 119 mm[Hg] [facility] [place] Body temperature 36.265913 Lisa 36.155005 [facility] Respiratory rate 18 /min 18 /min [facility] Heart rate 79 /min 79 /min [facility] Diastolic blood 88 mm[Hg] 88 mm[Hg] [facility] pressure Medical Center Systolic blood 116 mm[Hg] 116 mm[Hg] [facility] [place] Body temperature 37.517460 Lisa 37.395470 [facility] Respiratory rate 20 /min 20 /min [facility] Heart rate 77 /min 77 /min [facility] Diastolic blood 93 mm[Hg] 93 mm[Hg] [facility] Systolic blood 139 mm[Hg] 139 mm[Hg] [facility] Body temperature 37.677734 Lisa 37.957987 [facility] Respiratory rate 20 /min 20 /min [facility] Heart rate 81 /min 81 /min [facility] Diastolic blood 101 mm[Hg] 101 mm[Hg] [facility] [place] Systolic blood 151 mm[Hg] 151 mm[Hg] [facility] Body temperature 37.078687 Lisa 37.612081 [facility] Respiratory rate 18 /min 18 /min [facility] Heart rate 78 /min 78 /min [facility] Diastolic blood 91 mm[Hg] 91 mm[Hg] [facility] Systolic blood 131 mm[Hg] 131 mm[Hg] [facility] Body weight 85.253029 kg 85.571702 kg [facility] Body temperature 36.184588 Lisa 36.481979 [facility] Respiratory rate 20 /min 20 /min [facility] Heart rate 84 /min 84 /min [facility] Body height 177.357331 cm 177.0148[address] [facility] Diastolic blood 84 mm[Hg] 84 mm[Hg] [facility] Systolic blood 133 mm[Hg] 133 mm[Hg] [facility] Body mass index 26.92 kg/m2 26.92 kg/m2 [facility] (BMI) [Ratio] Medical Center Body temperature 36.439628 Lisa 36.863243 [facility] Respiratory rate 16 /min 16 /min [facility] Oxygen 100 % 100 % [facility] saturation in Medical Arterial blood Center by Pulse oximetry Heart rate 88 /min 88 /min [facility] Diastolic blood 87 mm[Hg] 87 mm[Hg] [facility] pressure Medical Center Systolic blood 152 mm[Hg] 152 mm[Hg] [facility] Body temperature 36.201917 Lisa 36.717438 [facility] Respiratory rate 18 /min 18 /min [facility] Oxygen 96 % 96 % [facility] saturation in Medical Arterial blood Center by Pulse oximetry Heart rate 85 /min 85 /min [facility] Diastolic blood 104 mm[Hg] 104 mm[Hg] [facility] pressure Medical Center Systolic blood 147 mm[Hg] 147 mm[Hg] [facility] Oxygen 98 % 98 % [facility] saturation in Medical Arterial blood Center by Pulse oximetry Oxygen 98 % 98 % [facility] saturation in Medical Arterial blood Center by Pulse oximetry Body weight 81.596593 kg 81.597357 kg [facility] Oxygen 99 % 99 % [facility] saturation in Medical Arterial blood Center by Pulse oximetry Body height 175.320526 cm 175.405555 cm [facility] Body mass index 26.5 kg/m2 26.5 kg/m2 [facility] (BMI) [Ratio] Medical Center Body temperature 37.212969 Lisa 37.650263 [facility] Respiratory rate 18 /min 18 /min [facility] Oxygen 97 % 97 % [facility] saturation in Medical Arterial blood Center by Pulse oximetry Heart rate 87 /min 87 /min [facility] Diastolic blood 91 mm[Hg] 91 mm[Hg] [facility] pressure Medical Center Systolic blood 154 mm[Hg] 154 mm[Hg] [facility] ID Date Data Source [id number] 08/07/2019 04:05:00 PM EDT [facility] Name Value Range Interpretation Code Description Data Source(s) WEIGHT 80.739 kilos 80.739 kilos [facility] HEIGHT 175.3 centimeters 175.3 centimeters [facility] ID Date Data Source [id number] 06/20/2019 09:34:00 PM EDT [facility] Name Value Range Interpretation Code Description Data Source(s) WEIGHT 80.739 kilos 80.739 kilos [facility] HEIGHT 175.3 centimeters 175.3 centimeters [facility] ID Date Data Source [id number] 06/20/2019 07:29:00 PM EDT [facility] [id number] [place] Name Value Range Interpretation Code Description Data Source(s) WEIGHT 80.739 kilos 80.739 kilos [facility] HEIGHT 175.3 centimeters 175.3 centimeters [facility] ID Date Data Source [id number] 06/20/2019 07:29:00 PM EDT [facility] [id number] [place] Name Value Range Interpretation Code Description Data Source(s) WEIGHT 80.739 kilos 80.739 kilos [facility] HEIGHT 175.3 centimeters 175.3 centimeters [facility] ID Date Data Source [id number] 06/20/2019 07:28:00 PM EDT [facility] - [id number] [place] Name Value Range Interpretation Code Description Data Source(s) WEIGHT 80.739 kilos 80.739 kilos [facility] HEIGHT 175.3 centimeters 175.3 centimeters [facility] ID Date Data Source [id number] 06/20/2019 07:28:00 PM EDT [facility] - [id number] [place] Name Value Range Interpretation Code Description Data Source(s) WEIGHT 80.739 kilos 80.739 kilos [facility] HEIGHT 175.3 centimeters 175.3 centimeters [facility] ID Date Data Source [id number] 06/20/2019 07:14:00 PM EDT [facility] - [id number] [place] Name Value Range Interpretation Code Description Data Source(s) WEIGHT 80.739 kilos 80.739 kilos [facility] HEIGHT 175.3 centimeters 175.3 centimeters [facility] ID Date Data Source [id number] 06/20/2019 07:11:00 PM EDT [facility] - [id number] [place] Name Value Range Interpretation Code Description Data Source(s) WEIGHT 80.739 kilos 80.739 kilos [facility] HEIGHT 175.3 centimeters 175.3 centimeters [facility] ID Date Data Source [id number] 06/20/2019 07:09:00 PM EDT [facility] - [id number] [place] Name Value Range Interpretation Code Description Data Source(s) WEIGHT 80.739 kilos 80.739 kilos [facility] HEIGHT 175.3 centimeters 175.3 centimeters [facility] ID Date Data Source [id number] 06/20/2019 07:09:00 PM EDT [facility] - [id number] [place] Name Value Range Interpretation Code Description Data Source(s) WEIGHT 80.739 kilos 80.739 kilos [facility] HEIGHT 175.3 centimeters 175.3 centimeters [facility] ID Date Data Source [id number] 06/20/2019 07:04:00 PM EDT [facility] - [id number] [place] Name Value Range Interpretation Code Description Data Source(s) WEIGHT 80.739 kilos 80.739 kilos [facility] HEIGHT 175.3 centimeters 175.3 centimeters [facility] ID Date Data Source [id number] 06/20/2019 07:04:00 PM EDT [facility] - [id number] [place] Name Value Range Interpretation Code Description Data Source(s) WEIGHT 80.739 kilos 80.739 kilos [facility] HEIGHT 175.3 centimeters 175.3 centimeters [facility] ID Date Data Source [id number] 06/20/2019 07:03:00 PM EDT [facility] - [id number] [place] Name Value Range Interpretation Code Description Data Source(s) WEIGHT 80.739 kilos 80.739 kilos [facility] HEIGHT 175.3 centimeters 175.3 centimeters [facility] ID Date Data Source [id number] 06/20/2019 07:02:00 PM EDT [facility] - [id number] [place] Name Value Range Interpretation Code Description Data Source(s) WEIGHT 80.739 kilos 80.739 kilos [facility] HEIGHT 175.3 centimeters 175.3 centimeters [facility] ID Date Data Source [id number] 06/20/2019 07:02:00 PM EDT [facility] - [id number] [place] Name Value Range Interpretation Code Description Data Source(s) WEIGHT 80.739 kilos 80.739 kilos [facility] HEIGHT 175.3 centimeters 175.3 centimeters [facility] Patient Treatment Plan of Care Planned Activity Planned Date Details Description Data Source (s) atorvastatin 40 MG Oral 10/17/2019 12:00:00 NEXTGEN ([facility]) Aspirin 81 MG Delayed 09/06/2019 12:00:00 NEXT[facility] ([facility] Release Oral Tablet [facility]) Chlorthalidone 25 MG Oral 09/06/2019 12:00:00 NEXTGEN ([facility] Tablet AM [facility]) atorvastatin 20 MG Oral 09/06/2019 12:00:00 [facility]EXTGEN ([facility] Tablet AM [facility]) atorvastatin 20 MG Oral 09/06/2019 12:00:00 NEXTGEN ([facility] Tablet AM [facility]) Thiamine 100 MG Oral 06/28/2019 12:00:00 [facility] Tablet [facility] MULTIVITAMIN 06/28/2019 12:00:00 [facility] (MULTI-VITAMIN DAILY) 1 AM [facility] EACH TABLET Methadone Hydrochloride 10 06/28/2019 12:00:00 [facility] MG Oral Tablet [facility] Folic Acid 1 MG Oral 06/28/2019 12:00:00 [facility] Tablet [facility] rivaroxaban 20 MG Oral 03/31/2018 12:00:00 NEXTGEN ([facility] Tablet [Xarelto[facility] AM [facility]) Aspirin 81 MG Delayed NEXTGE N ([facility] Release Oral Tablet [facility]) atorvastatin 20 MG Oral NEXT GEN ([facility]) Methadone Hydrochloride NEXT GEN ([facility] 0.333 MG/ML Oral [facility]) Chlorthalidone 25 MG Oral NE XTGEN ([facility]) Varenicline Tartrate [facility] (Chantix) 1 Each Tab.ds.pk H [facility] Tab.ds.pk, 1 Tab Oral Amoxicillin 875 MG / [facility] Clavulanate 125 MG Oral [facility] Tablet Chlorthalidone [address] [facility] Tablet [facility] atorvastatin [address] [facility] [place] Tablet [Lipitor] [facility] Amoxicillin 875 MG / [facility] Clavulanate 125 MG Oral [facility] Tablet [Augmentin] Methadone Hydrochloride [facility] 0.333 MG/ML Oral [facility] Suspension pantoprazole 40 MG Delayed S [facility] Release Oral Tablet [facility] [place] Thiamine 100 MG Oral [facility] Tablet [facility] multivit with min-folic Allison t Con acid ([employer] [facility] [employer]) 0.4 mg Tablet, Ordered By: DWIGHT Akersirections: 1 tablet oral daily Ibuprofen 600 MG Oral [facility] Chlorthalidone 25 MG Oral Sa int [facility] Tablet [facility] [place] atorvastatin 20 MG Oral Allison t [facility] Tablet [facility] [place] METHADONE 40 MG SOLUBLE Allison t Con TABLETDirections: oral [facility] CHLORTHALIDONE [address] [facility] TABLETDirections: oral [facility] ATORVASTATIN [address] [facility] TABLETDirections: oral [facility] atorvastatin 20 MG Oral Allison [facility] Tablet [facility] [place] Thiamine 100 MG Oral [facility] multivit with min-folic Allison t Con acid ([employer] [facility] [address] [employer]) 0.4 mg Tablet, Ordered By: Shelly Duarte, DWIGHTirections: 1 tablet oral daily pantoprazole 40 MG Delayed S [facility] Release Oral Tablet [facility] [place] Methadone Hydrochloride [facility] 0.333 MG/ML Oral [facility] Suspension [Methadose] Ibuprofen 600 MG Oral [facility] Chlorthalidone 25 MG Oral Sa int [facility] Indomethacin 50 MG Oral [facility] Capsule [facility] Naproxen sodium 275 MG [facility] Oral Tablet [facility] Amoxicillin 875 MG / [facility] Clavulanate 125 MG Oral [facility] Tablet methodone [facility] Methadone Hydrochloride [facility] 0.333 MG/ML Oral [facility] Suspension rivaroxaban 15 MG Oral [facility] Tablet [Xarelto] [facility] Chlorthalidone 25 MG Oral Sa int [facility]t [facility] [place] atorvastatin 20 MG Oral Allison t [facility] Tablet [facility] [place] Aspirin 81 MG Chewable [facility] apixaban 5 MG Oral Tablet NE XTGEN ([facility])
[2019-11-27] MEDS: hydrOXYzine PAMOATE 25 MG CAPSULE (FP) PO SCH ×3 (14:29→22:31)
[2019-11-27 14:38] LABS: ALBUMIN 3.6 g/dl (3.4-5.0); BILIRUBIN,TOTAL 2.1 mg/dL (0.2-1); BLOOD UREA NITROGEN 15.5 mg/dL (7-18); CALCIUM 8.8 mg/dL (8.5-10.1); CREATININE 0.9 mg/dL (0.55-1.3); POTASSIUM 3.8 mmol/L (3.5-5.1); TOT PROT 7.9 g/dl (6.4-8.2)
[2019-11-27 14:39] LABS: HEMATOCRIT 41.8 % (35.4-49); MCH 30.5 pg (25.7-33.7); MCHC 33.4 g/dl (32.0-35.9); MEAN CELL VOLUME 91.3 fl (80-96); MEAN PLT VOLUME 8.7 fl (7.5-11.1); PLATELET COUNT 143 K/MM3 (134-434); RBC 4.58 M/mm3 (4.00-5.60); RDW 14.1 % (11.9-15.9); WHITE BLOOD COUNT 8.4 K/mm3 (4.0-10.0)
[2019-11-27] MEDS: LORazepam 2 MG TABLET PO SCH ×2 (17:06→22:31)
[2019-11-27] MEDS: MELATONIN 5 MG TABLETS PO SCH (22:30)
[2019-11-27] MEDS: THIAMINE HCL 100 MG TABLET (FP) PO SCH (22:31)
[2019-11-28] MEDS: LORazepam 2 MG TABLET PO SCH ×4 (05:38→22:07)
[2019-11-28] MEDS: hydrOXYzine PAMOATE 25 MG CAPSULE (FP) PO SCH ×5 (05:38→22:08)
[2019-11-28] MEDS: NICOTINE 7 MG/24 HOURS TOPICAL PATCH TD SCH (10:02)
[2019-11-28] MEDS: METHADONE HCL 40 MG DISPERSABLE TABLET PO SCH (10:02)
[2019-11-28] MEDS: PANTOPRAZOLE 40 MG TABLET PO SCH (10:02)
[2019-11-28] MEDS: ASPIRIN 81 MG CHEWABLE TABLETS PO SCH (10:03)
[2019-11-28] MEDS: PRENATAL VITAMINS W/ FOLIC ACID TABLET (FP) PO SCH (10:03)
[2019-11-28] MEDS ORDERED: ONDANSETRON *ODT* 4 MG TABLET SL ONE (11:35)
[2019-11-28] MEDS ORDERED: cloNIDine HCL 0.1 MG TABLET PO PRN (11:40)
--- NOTE | 2019-11-28 11:41 | PN ---
S CIWA - CIWA Score Nausea/Vomitin-Mild Nausea/No Vomiting Muscle Tremors: 3 Anxiety: 2 Agitation: 1-Slight > Activity Paroxysmal Sweats: No Perspiration Orientation: 0-Oriented Tacttile Disturbances: 1-Very Mild Itch/Numbness Auditory Disturbances: 0-None Visual Disturbances: 2-Mild Sensitivity Headache: 2-Mild CIWA-Ar Total Score: 12 [facility] Progress Note (SOAP) Subjective: 69 years old male was admitted on 11/27/19 for alcohol withdrawal sx management treating with ativan detox regiment ambulating with cane and using wheelchair periodically on hallway mr squires prefers to have methadone 40mg po around 6am poor nutrition intact due to nausea ensure 90ml po od x 2 days zofran 4mg sl x 1 discontinue 05/2019 order set from current order Objective: 11/28/19 11:38 Vital Signs - 24 hr 11/27/19 11/27/19 11/27/19 11:43 13:21 16:45 Temperature 97.6 F 97.1 F L 96.9 F L Pulse Rate 123 H 112 H 137 H Respiratory 20 18 17 Rate Blood Pressure 164/101 H 139/96 161/88 O2 Sat by Pulse 96 Oximetry (%) 11/27/19 11/27/19 11/28/19 19:04 20:44 06:32 Temperature 97.3 F L 97.3 F L Pulse Rate 136 H 120 H 113 H Respiratory 20 18 16 Rate Blood Pressure 156/95 137/74 132/89 O2 Sat by Pulse 98 96 Oximetry (%) 11/28/19 08:46 Temperature 97.5 F L Pulse Rate 112 H Respiratory 16 Rate Blood Pressure 136/90 O2 Sat by Pulse 96 Oximetry (%) Laboratory Tests 11/27/19 11/27/19 11/27/19 12:00 12:00 12:00 WBC 8.4 RBC 4.58 Hgb 14.0 Hct 41.8 D MCV 91.3 MCH 30.5 MCHC 33.4 RDW 14.1 D Plt Count 143 D MPV 8.7 Sodium 136 Potassium 3.8 Chloride 96 L Carbon Dioxide 18 L Anion Gap 21 H BUN 15.5 Creatinine 0.9 Est GFR (CKD-EPI)AfAm 102.07 Est GFR (CKD-EPI)NonAf 88.07 Random Glucose 168 H Calcium 8.8 Total Bilirubin 2.1 H AST 194 H ALT 108 H Alkaline Phosphatase 134 H Total Protein 7.9 Albumin 3.6 Syphilis Serology Non-reactive 11/28/19 11:41 bp elevation initiate clonidine 0.1mg po prn ast elevation continue ativan regiment repeat ast pending 11/28/19 11:46 glucose elevation fasting glucose pending Assessment: 11/28/19 11:47 alcohol withdrawal glucose serum elevation ast elevation 11/28/19 11:49 rule out alcohol withdrawal induced hypertension Plan: ativan regiment clondiine prn
[2019-11-28] MEDS: THIAMINE HCL 100 MG TABLET (FP) PO SCH (22:08)
[2019-11-28] MEDS: MELATONIN 5 MG TABLETS PO SCH (22:08)
[2019-11-29] MEDS: METHADONE HCL 40 MG DISPERSABLE TABLET PO SCH (05:54)
[2019-11-29] MEDS: LORazepam 1 MG TABLET PO SCH ×4 (05:54→23:03)
[2019-11-29] MEDS: hydrOXYzine PAMOATE 25 MG CAPSULE (FP) PO SCH ×5 (05:54→23:03)
[2019-11-29] MEDS: NICOTINE 7 MG/24 HOURS TOPICAL PATCH TD SCH (10:19)
[2019-11-29] MEDS: ASPIRIN 81 MG CHEWABLE TABLETS PO SCH (10:19)
[2019-11-29] MEDS: PANTOPRAZOLE 40 MG TABLET PO SCH (10:19)
[2019-11-29] MEDS: PRENATAL VITAMINS W/ FOLIC ACID TABLET (FP) PO SCH (10:19)
--- NOTE | 2019-11-29 11:17 | PN ---
[facility] CIWA - CIWA Score Nausea/Vomitin-No Nausea/No Vomiting Muscle Tremors: 2 Anxiety: 2 Agitation: 2 Paroxysmal Sweats: No Perspiration Orientation: 0-Oriented Tacttile Disturbances: 1-Very Mild Itch/Numbness Auditory Disturbances: 0-None Visual Disturbances: 0-None Headache: 2-Mild CIWA-Ar Total Score: 9 S Progress Note (SOAP) Subjective: alert,irritable,anxious,interrupted sleep,aching pain,pain in the back,using wheel chair Objective: 11/29/19 17:30 Vital Signs Temperature 96.8 F L 11/29/19 12:31 Pulse Rate 10 L 11/29/19 12:31 Respiratory Rate 18 11/29/19 12:31 Blood Pressure 164/98 11/29/19 12:31 O2 Sat by Pulse Oximetry (%) 99 11/29/19 12:31 11/29/19 17:30 Laboratory Last Values WBC 8.4 K/mm3 (4.0-10.0) 11/27/19 12:00 RBC 4.58 M/mm3 (4.00-5.60) 11/27/19 12:00 Hgb 14.0 GM/dL (11.7-16.9) 11/27/19 12:00 Hct 41.8 % (35.4-49) D 11/27/19 12:00 MCV 91.3 fl (80-96) 11/27/19 12:00 MCH 30.5 pg (25.7-33.7) 11/27/19 12:00 MCHC 33.4 g/dl (32.0-35.9) 11/27/19 12:00 RDW 14.1 % (11.9-15.9) D 11/27/19 12:00 Plt Count 143 K/MM3 (134-434) D 11/27/19 12:00 MPV 8.7 fl (7.5-11.1) 11/27/19 12:00 Sodium 136 mmol/L (136-145) 11/27/19 12:00 Potassium 3.8 mmol/L (3.5-5.1) 11/27/19 12:00 Chloride 96 mmol/L (98-107) L 11/27/19 12:00 Carbon Dioxide 18 mmol/L (21-32) L 11/27/19 12:00 Anion Gap 21 MMOL/L (8-16) H 11/27/19 12:00 BUN 15.5 mg/dL (7-18) 11/27/19 12:00 Creatinine 0.9 mg/dL (0.55-1.3) 11/27/19 12:00 Est GFR (CKD-EPI)AfAm 102.07 11/27/19 12:00 Est GFR (CKD-EPI)NonAf 88.07 11/27/19 12:00 Random Glucose 168 mg/dL (74-106) H 11/27/19 12:00 Calcium 8.8 mg/dL (8.5-10.1) 11/27/19 12:00 Total Bilirubin 2.1 mg/dL (0.2-1) H 11/27/19 12:00 AST 194 U/L (15-37) H 11/27/19 12:00 ALT 108 U/L (13-61) H 11/27/19 12:00 Alkaline Phosphatase 134 U/L (45-117) H 11/27/19 12:00 Total Protein 7.9 g/dl (6.4-8.2) 11/27/19 12:00 Albumin 3.6 g/dl (3.4-5.0) 11/27/19 12:00 Syphilis Serology Non-reactive (NONREACTIVE) 11/27/19 12:00 COVID-19 ([facility]) Not detected (Not Detected) 11/27/19 13:20 Assessment: 11/29/19 17:30 withdrawal symptom Plan: continue detox ativan regimen,metadone 40 mgs maintenance daily,lidoderm patch,repeat cmp,inr,fasting glucose in am
[2019-11-29] MEDS: LIDOCAINE 5% TOPICAL PATCH TP SCH (13:38)
[2019-11-29] MEDS: IBUPROFEN 400 MG TABLET (FP) PO PRN (17:40)
[2019-11-29] MEDS: LIDOCAINE PATCH REMOVAL MC SCH (23:02)
[2019-11-29] MEDS: MELATONIN 5 MG TABLETS PO SCH (23:03)
[2019-11-29] MEDS: THIAMINE HCL 100 MG TABLET (FP) PO SCH (23:03)
[2019-11-30] MEDS ORDERED: LORazepam 0.5 MG TABLET PO PRN
[2019-11-30] MEDS: hydrOXYzine PAMOATE 25 MG CAPSULE (FP) PO SCH ×5 (05:29→22:06)
[2019-11-30] MEDS: LORazepam 0.5 MG TABLET PO SCH ×4 (05:29→22:06)
[2019-11-30] MEDS: METHADONE HCL 40 MG DISPERSABLE TABLET PO SCH (05:29)
--- NOTE | 2019-11-30 09:07 | PN ---
S CIWA - CIWA Score Nausea/Vomitin-Mild Nausea/No Vomiting Muscle Tremors: 2 Anxiety: 2 Agitation: 2 Paroxysmal Sweats: No Perspiration Orientation: 0-Oriented Tacttile Disturbances: 0-None Auditory Disturbances: 0-None Visual Disturbances: 0-None Headache: 1-Very Mild CIWA-Ar Total Score: 8 S Progress Note (SOAP) Subjective: alert,irritable,interrupted sleep,low back pain Objective: 11/30/19 17:10 Vital Signs Temperature 9.9 F L 11/30/19 12:44 Pulse Rate 101 H 11/30/19 12:44 Respiratory Rate 18 11/30/19 12:44 Blood Pressure 118/81 11/30/19 12:44 O2 Sat by Pulse Oximetry (%) 99 11/30/19 12:44 11/30/19 17:14 Laboratory Results - last 24 hr 11/30/19 11/30/19 08:00 08:00 PT with INR 10.90 INR 0.92 Sodium 137 Potassium 3.6 Chloride 98 Carbon Dioxide 35 H Anion Gap 5 L BUN 20.9 H Creatinine 0.8 Est GFR (CKD-EPI)AfAm 107.13 Est GFR (CKD-EPI)NonAf 92.44 Random Glucose 92 Fasting Glucose 92 Calcium 9.4 Total Bilirubin 1.3 H AST 347 H ALT 236 H Alkaline Phosphatase 125 H Total Protein 6.7 Albumin 3.1 L Assessment: 11/30/19 17:11 withdrawal symptom Plan: continue detox ativan regimen,methadone 40 mgs po daily maintenance,elevation of alt,ast,will repeat cmp in am
[2019-11-30 10:13] LABS: INR 0.92 (0.83-1.09); PROTHROMBIN TIME (PATIENT) 10.9 SEC (9.7-13.0)
[2019-11-30] MEDS: PANTOPRAZOLE 40 MG TABLET PO SCH (10:13)
[2019-11-30] MEDS: PRENATAL VITAMINS W/ FOLIC ACID TABLET (FP) PO SCH (10:14)
[2019-11-30] MEDS: NICOTINE 7 MG/24 HOURS TOPICAL PATCH TD SCH (10:14)
[2019-11-30] MEDS: ASPIRIN 81 MG CHEWABLE TABLETS PO SCH (10:14)
[2019-11-30] MEDS: LIDOCAINE 5% TOPICAL PATCH TP SCH (10:15)
[2019-11-30] MEDS: IBUPROFEN 400 MG TABLET (FP) PO PRN (10:16)
[2019-11-30 10:19] LABS: ALBUMIN 3.1 g/dl (3.4-5.0); BILIRUBIN,TOTAL 1.3 mg/dL (0.2-1); BLOOD UREA NITROGEN 20.9 mg/dL (7-18); CALCIUM 9.4 mg/dL (8.5-10.1); CREATININE 0.8 mg/dL (0.55-1.3); POTASSIUM 3.6 mmol/L (3.5-5.1); TOT PROT 6.7 g/dl (6.4-8.2)
[2019-11-30 21:21] VITALS: TEMP 97.3
[2019-11-30] MEDS: THIAMINE HCL 100 MG TABLET (FP) PO SCH (22:06)
[2019-11-30] MEDS: MELATONIN 5 MG TABLETS PO SCH (22:06)
[2019-11-30] MEDS: LIDOCAINE PATCH REMOVAL MC SCH (22:07)
[2019-12-01] MEDS ORDERED: LORazepam 0.5 MG TABLET PO ONE (05:00)
[2019-12-01] MEDS: METHADONE HCL 40 MG DISPERSABLE TABLET PO SCH (05:46)
[2019-12-01] MEDS: hydrOXYzine PAMOATE 25 MG CAPSULE (FP) PO SCH (05:47)
[2019-12-01 09:49] VITALS: BP 149/91; PULSE 115
[2019-12-01 12:03] LABS: BILIRUBIN,TOTAL 1.2 mg/dL (0.2-1); BLOOD UREA NITROGEN 21.7 mg/dL (7-18); CALCIUM 9.3 mg/dL (8.5-10.1); CREATININE 0.9 mg/dL (0.55-1.3); POTASSIUM 3.9 mmol/L (3.5-5.1); TOT PROT 6.4 g/dl (6.4-8.2)
--- NOTE | 2019-12-01 12:49 | DS ---
[facility] Detox Discharge Summary Admission Date: 11/27/19 Discharge Date: 12/01/19 - History Present History: Alcohol Dependence Additional Comments: Pt is medically cleared and discharged today. Pt completed the detox protocol. Pt is encouraged to follow-up with an outpatient CD program and also to follow- up with his pmd for follow-up care and his elevated liver enzymes which he verbalized understanding. Pt is AOX3, in no acute respiratory distress, Full ROM, ambulatory with assistive device. Pertinent Past History: h/o alcohol use disorder. - Physical Exam Results Vital Signs: Vital Signs Temperature 97.3 F L 12/01/19 09:01 Pulse Rate 115 H 12/01/19 09:01 Respiratory Rate 18 12/01/19 09:01 Blood Pressure 149/91 12/01/19 09:01 O2 Sat by Pulse Oximetry (%) 100 12/01/19 06:40 Laboratory Last Values WBC 8.4 K/mm3 (4.0-10.0) 11/27/19 12:00 RBC 4.58 M/mm3 (4.00-5.60) 11/27/19 12:00 Hgb 14.0 GM/dL (11.7-16.9) 11/27/19 12:00 Hct 41.8 % (35.4-49) D 11/27/19 12:00 MCV 91.3 fl (80-96) 11/27/19 12:00 MCH 30.5 pg (25.7-33.7) 11/27/19 12:00 MCHC 33.4 g/dl (32.0-35.9) 11/27/19 12:00 RDW 14.1 % (11.9-15.9) D 11/27/19 12:00 Plt Count 143 K/MM3 (134-434) D 11/27/19 12:00 MPV 8.7 fl (7.5-11.1) 11/27/19 12:00 PT with INR 10.90 SEC (9.7-13.0) 11/30/19 08:00 INR 0.92 (0.83-1.09) 11/30/19 08:00 Sodium 137 mmol/L (136-145) 12/01/19 07:50 Potassium 3.9 mmol/L (3.5-5.1) 12/01/19 07:50 Chloride 98 mmol/L (98-107) 12/01/19 07:50 Carbon Dioxide 34 mmol/L (21-32) H 12/01/19 07:50 Anion Gap 5 MMOL/L (8-16) L 12/01/19 07:50 BUN 21.7 mg/dL (7-18) H 12/01/19 07:50 Creatinine 0.9 mg/dL (0.55-1.3) 12/01/19 07:50 Est GFR (CKD-EPI)AfAm 102.07 12/01/19 07:50 Est GFR (CKD-EPI)NonAf 88.07 12/01/19 07:50 Random Glucose 118 mg/dL (74-106) H 12/01/19 07:50 Fasting Glucose 92 mg/dL (74-106) 11/30/19 08:00 Calcium 9.3 mg/dL (8.5-10.1) 12/01/19 07:50 Total Bilirubin 1.2 mg/dL (0.2-1) H 12/01/19 07:50 AST 342 U/L (15-37) H 12/01/19 07:50 ALT 298 U/L (13-61) H 12/01/19 07:50 Alkaline Phosphatase 127 U/L (45-117) H 12/01/19 07:50 Total Protein 6.4 g/dl (6.4-8.2) 12/01/19 07:50 Albumin 3.0 g/dl (3.4-5.0) L 12/01/19 07:50 Syphilis Serology Non-reactive (NONREACTIVE) 11/27/19 12:00 COVID-19 ([facility]) Not detected (Not Detected) 11/27/19 13:20 Labs noted with elevated ALT/AST. Pertinent Admission Physical Exam Findings: withdrawal symptoms. - Treatment Hospital Course: Detox Protocol Followed, Detoxed Safely, Responded well, Discharged Condition Good - Medication Discharge Medications: Ambulatory Orders Atorvastatin Ca [Lipitor] 20 mg PO HS 09/22/18 Chlorthalidone 25 mg PO DAILY 09/22/18 Pantoprazole Sodium [Protonix -] 40 mg PO DAILY tablet.ec 09/22/18 Aspirin [ASA -] 81 mg PO DAILY 11/27/19 Methadone [Dolophine -] 40 mg PO DAILY 11/27/19 - Diagnosis (1) Alcohol dependence with uncomplicated withdrawal Status: Acute (2) ETOH abuse Status: Chronic (3) Methadone maintenance therapy patient Status: Chronic (4) Elevated liver enzymes Status: Chronic (5) HTN (hypertension) Status: Chronic Qualifiers: Hypertension type: essential hypertension Qualified Code(s): I10 - Essential (primary) hypertension - AMA Did Patient Leave Against Medical Advice: No
== END 2019-12-01 09:27 | disposition home or self-care (01) | DRG 897 ==
LOC: YASAS 10:22 → Y3N 11:47
PROVIDERS: ADMIT Allergy & Immunology; ATTEND Allergy & Immunology
PROC: HZ2ZZZZ Detoxification Services for Substance Abuse Treatment (ICD-10-PCS; principal; 2019-11-27)
DX: F10.230 Alcohol dependence with withdrawal, uncomplicated (principal); F11.20 Opioid dependence, uncomplicated; F12.10 Cannabis abuse, uncomplicated; F17.210 Nicotine dependence, cigarettes, uncomplicated; I10 Essential (primary) hypertension; K59.00 Constipation, unspecified; R74.8 Abnormal levels of other serum enzymes; R74.0 Nonspecific elevation of levels of transaminase and lactic acid dehydrogenase [LDH]; R73.9 Hyperglycemia, unspecified; M17.0 Bilateral primary osteoarthritis of knee; Z99.89 Dependence on other enabling machines and devices; Z86.711 Personal history of pulmonary embolism; Z79.82 Long term (current) use of aspirin
CPT/HCPCS: 36415; 80053; 82947; 85027; 85610; 86780; 93005; 93010; J0735; Q0162; U0003

== ENCOUNTER 2019-12-11 12:17 | Inpatient (IN) | payer OTHER ==
--- NOTE | 2019-12-11 12:40 | PDOC ---
History of Present Illness - General Chief Complaint: Alcohol intoxication Stated Complaint: ALCOHOL WITHDRAWL Time Seen by Provider: 12/11/19 12:38 - History of Present Illness Initial Comments: 12/11/19 12:50 69 y.o. M PMHx HTN, HLD, chronic knee pain, hx of PE, methadone, alcohol abuse presenting by EMS due to intoxication. Patient is AAOx2 patient is unsure of the month, where he is or why he is here. He only recalls his nephew being worried about him. Patient has no complaints denies any falls, LOC, headache, chest leann n, SOB, N/V/D. Patient states that last time he remembers his location was lastnight when he was home. Patient lives alone and has been drinking since waking up. 12/11/19 12:55 Past History - Medical History Allergies/Adverse Reactions: Allergies Allergy/AdvReac Type Severity Reaction Status Date / Time No Known Allergies Allergy Verified 12/11/19 12:24 Home Medications: Ambulatory Orders Atorvastatin Ca [Lipitor] 20 mg PO HS 09/22/18 Chlorthalidone 25 mg PO DAILY 09/22/18 Pantoprazole Sodium [Protonix -] 40 mg PO DAILY tablet.ec 09/22/18 Aspirin [ASA -] 81 mg PO DAILY 11/27/19 Methadone [Dolophine -] 40 mg PO DAILY 11/27/19 Anemia: No Asthma: No Cancer: No Cardiac Disorders: No CVA: No COPD: No CHF: No DVT: No Dementia: No Diabetes: No GI Disorders: No Disorders: No HTN: Yes Hypercholesterolemia: Yes Kidney Stones: No Liver Disease: No Psychiatric Problems: Yes (etoh abuse) Seizures: No Thyroid Disease: No - Surgical History Abdominal Surgery: No Appendectomy: No Cardiac Surgery: No Cholecystectomy: No Lung Surgery: No Neurologic Surgery: No Orthopedic Surgery: Yes (Arthroscopic knee surgery 2007) - Reproductive History Testicular Surgery: No - Immunization History Immunization Up to Date: Yes - Psycho-Social/Smoking History Smoking History: Unknown if ever smoked Have you smoked in the past 12 months: Yes Number of Cigarettes Smoked Daily: 5 'Breaking Loose' booklet given: 11/27/19 - Substance Abuse Hx (Audit-C & DAST Scrn) How often the patient has a drink containing alcohol: 4 0r more times/wk Number of drinks the patient has on a typical day: 3 or 4 Score: In Men: 4 or > Positive; In Women: 3 or > Positive: 5 Screen Result (Pos requires Nsg. Audit-10AR): Positive In the last yr the pt used illegal drug/Rx for NonMed reason: No Score: Yes response is considered Positive: 0 Screen Result (Positive result requires Nsg. DAST-10): Negative Review of Systems - Review of Systems Able to Perform ROS?: Yes Is the patient limited Persian proficient: No Constitutional: No: Chills, Fever HEENTM: No: Blurred Vision, Double Vision Respiratory: No: Cough, Shortness of Breath, Wheezing Cardiac (ROS): No: Chest Pain, Lightheadedness ABD/GI: No: Constipated, Diarrhea, Nausea, Vomiting : No: Burning, Dysuria Musculoskeletal: No: Joint Pain, Muscle Pain, Muscle Weakness Integumentary: No: Bruising, Erythema, Sweating Neurological: No: Headache, Numbness, Dizziness Hematologic/Lymphatic: No: Easy Bleeding, Easy Bruising *Physical Exam - Vital Signs Last Vital Signs Temp Pulse Resp BP Pulse Ox 97.5 F L 95 H 16 94/65 92 L 12/11/19 12:20 12/11/19 12:20 12/11/19 12:20 12/11/19 12:20 12/11/19 12:20 - Physical Exam General Appearance: Yes: Nourished, Appropriately Dressed. No: Apparent Distress Respiratory/Chest: positive: Lungs Clear, Normal Breath Sounds. negative: Chest Tender, Respiratory Distress, Accessory Muscle Use, Crackles, Rales, Stridor, Wheezing Cardiovascular: positive: Regular Rhythm, Regular Rate. negative: Edema, JVD, Murmur Gastrointestinal/Abdominal: positive: Normal Bowel Sounds, Flat, Soft. negative: Tender, Protuberent, Guarding, Rebound, Tenderness Musculoskeletal: positive: Normal Inspection. negative: CVA Tenderness Extremity: positive: Normal Inspection. negative: Tender, Swelling, Calf Tenderness Integumentary: positive: Normal Color, Dry, Warm. negative: Cold, Rash Neurologic: positive: Alert, Normal Mood/Affect, Normal Response, Disoriented. negative: Fully Oriented (AAOX2) ED Treatment Course - LABORATORY CBC & Chemistry Diagram: 12/11/19 13:53 12/11/19 13:44 Medical Decision Making - Medical Decision Making 12/11/19 12:56 69 y.o. M PMHx HTN, HLD, chronic knee pain, hx of PE, methadone, alcohol abuse presenting by EMS due to intoxication. DDx: Alchol intoxication Labs: WBC 7.2, K 3.4, AST 123, ALT 128, Alk phos 124, Cr 0.5 CT: No acute intracranial pathology CXR: No sign of an acute process EKG: NSR, QTc 469, rate 86, no ST changes - His brother Xu was with him in the ED and would like to be updated [phone] Dispo: Admission 12/11/19 17:25 Discharge - Discharge Information Problems reviewed: Yes Clinical Impression/Diagnosis: Alcoholic encephalopathy, Methadone dependence, Transaminitis, History of pulmonary embolus (PE) Condition: Fair - Admission Yes - Follow up/Referral - Patient Discharge Instructions - Post Discharge Activity
--- OUTSIDE RECORDS SUMMARY | 2019-12-11 13:23 | XMS ---
:1950 Author Organization [facility] Care Team Providers Name Role Phone Ringstad, Nuris Unavailable Unavailable Ringstad, Nuris Unavailable Unavailable Ringstad, Nuris Unavailable Unavailable Ringstad, Nuris Unavailable Unavailable Ringstad, Nuris Unavailable Unavailable Ringstad, Nuris Unavailable Unavailable Ringstad, Nuris Unavailable Unavailable Ringstad, Nuris Unavailable Unavailable Ringstad, Nuris Unavailable Unavailable Ringstad, Nuris Unavailable Unavailable Ringstad, Nuris Unavailable Unavailable ED STAFF PHYSICIAN, STAFF Unavailable Unavailable TOM CASTORENA MD Unavailable Unavailable TOM CASTORENA MD Unavailable Unavailable TOM CASTORENA MD Unavailable Unavailable TOM CASTORENA MD Unavailable Unavailable TOM CASTORENA MD Unavailable Unavailable TOM CASTORENA MD Unavailable Unavailable Coloka-Kump, Rodika DO Unavailable Unavailable [...] Unavailable Unavailable Coloka-Kump, Rodika DO Unavailable Unavailable Lowry, Karen Unavailable Unavailable Lowry, Karen Unavailable Unavailable Lowry, Karen Unavailable Unavailable Lowry, Karen Unavailable Unavailable Lowry, Karen Unavailable Unavailable Lowry, Karen Unavailable Unavailable Lowry, Karen Unavailable Unavailable Lowry, Karen Unavailable Unavailable Lowry, Karen Unavailable Unavailable Lowry, Karen Unavailable Unavailable DOCTOR, NO Unavailable Unavailable Ringstad, Nuris Unavailable Unavailable Ringstad, Nuris Unavailable Unavailable Ringstad, Nuris Unavailable Unavailable Ringstad, Nuris Unavailable Unavailable Ringstad, Nuris Unavailable Unavailable Ringstad, Nuris Unavailable Unavailable Ringstad, Nuris Unavailable Unavailable Ringstad, Nuris Unavailable Unavailable Ringstad, Nuris Unavailable Unavailable Ringstad, Nuris Unavailable Unavailable Ringstad, Nuris Unavailable Unavailable KAREEM LISS Y SEIN Unavailable Unavailable LALO BRANDON MD Unavailable Unavailable ED STAFF PHYSICIAN Unavailable Unavailable Angeline Sylvester MD Unavailable Unavailable [...] Malia Unavailable Unavailable Aszalos, Malia Unavailable Unavailable Crisp Unavailable [phone] Crisp Unavailable [phone] MD MARIBEL Unavailable Unavailable Mari Vuong MD Unavailable Unavailable Yevgeniy, Mari MD Unavailable Unavailable Yevgeniy, Mari MD Unavailable Unavailable Yevgeniy, Mari MD Unavailable Unavailable Yevgeniy, Mari MD Unavailable Unavailable Yevgeniy, Mari MD Unavailable Unavailable Yevgeniy, Mari MD Unavailable Unavailable Yevgeniy, Mari MD Unavailable Unavailable Yevgeniy, Mari MD Unavailable Unavailable Yevgeniy, Mari MD Unavailable Unavailable Yevgeniy, Mari MD Unavailable Unavailable Yevgeniy, Mari MD Unavailable Unavailable Yevgeniy, Mari MD Unavailable Unavailable Yevgeniy, Mari MD Unavailable Unavailable Yevgeniy, Mari MD Unavailable Unavailable ALVARADO, K DO Unavailable ALVARADO, K DO Unavailable TRAVIS, MD Unavailable Unavailable Re-disclosure Warning The records that [...] is protected by Article 27-F of the [facility] Public Health law. If you continue you may haveaccess to information: Regarding HIV / AIDS; Provided by facilities licensed or operated by the [facility] Office of Mental Health; or Provided by the [facility] Office for People With Developmental Disabilities. If such information is present, then the following [facility] mandated warning applies: This information has been [...] law may result in a fine or fpc sentence or both. A general authorization for the release of medical or other information is NOT sufficient authorization for further disclosure. Allergies and Adverse Reactions Type Description Substance Reaction Status Data Source(s ) Drug allergy No Known Allergies No Known [facility] Allergies [facility] Propensity to Propensity to Propensity to NEXTG EN ([facility] adverse reactions adverse reactions adverse reactions [facility] Medical (disorder) (disorder) (disorder) Center) Family History Family Member Family Member Family Member Date of Description Data Source(s) Name Gender Status Status Unknown Female Problem 09/06/2019 NEXTGEN ([facility] ([facility]) 12:00:00 AM [facility] Medic al EDT Center) Encounters Encounter Providers Location Date Indications Data Source(s ) Attender: [facility] 11/29/2019 NEXTGEN ([facility] 04:12:00 Con Ringsdavid PM EDT - Medical 11/29/2019 Center) 04:12:00 PM EDT Attender: [facility] 11/09/2019 RADHA N ([facility] 10:32:00 Con AM EDT - Medical 11/09/2019 [place]) 10:32:00 AM EDT Outpatient Attender: 10/17/2019 [facility] Nuris 02:40:00 [facility] Deidra PM EDT r: Nuris Mcclelland r: Nuris Lyon OutpatientOFFICE Attender[facility] 10/17/2019 N EXTGEN ([facility] 02:40:00 [facility] VISIT, EST PM EDT - Medical 10/17/2019 Casey) 02:40:00 PM EDT Outpatient 09/06/2019 [facility] 11:31:00 [facility] AM EDT Outpatient Attender: 09/06/2019 [facility] Nuris 10:14:00 [facility] Deidra AM EDT r: Nuris Mcclelland r: Nuris Lyon OutpatientOFFICE Attender: [facility] 09/06/2019 N EXTGEN ([facility] 10:14:00 Con VISIT, EST AM EDT - Medical 09/06/2019 Casey) 10:14:00 AM EDT Outpatient 09/06/2019 [facility] 12:00:00 [facility] AM EDT Attender: [facility] 09/04/2019 NEXTGEN ([facility] 11:30:00 Con AM EDT - Medical 09/04/2019 [place]) 11:30:00 AM EDT Outpatient 07/06/2019 NEXTGEN 07:59:00 ([place] EDT [facility]) Outpatient 07/05/2019 NEXTGEN 08:18:00 [facility] [facility]) Inpatient Attender: 06/20/2019 ALCOHOL [facility] TOMRA CASTORENA 09:42:00 WITHDRAWAL [place] MDAttender: PM EDT - [facility] HOMER ALVARADO 06/28/2019 [place] DOAttender: 10:02:00 BALKERA TRAVIS PM EDT MDAdmitter: GREG ROBLES MDReferrer: NO DOCTORConsultan t: Patient- Specialist/PCP ALCOHOL WITHDRAWAL Patient discharged. Emergency Attender: ANTOINO BAHENA 06/20/2019 07:29:[address] [facility] MDAttender: RALPH CAMP [facility] NO [place] DOCTORConsultant: Patient- Specialist/PCP DETOX P 06/20/2019 07:29:00 PM EDT DETOX [facility] DETOX P 06/20/2019 07:29:00 PM EDT DETOX [facility] DETOX P 06/20/2019 07:28:00 PM EDT DETOX [facility] DETOX P 06/20/2019 07:28:00 PM EDT DETOX [facility] DETOX P 06/20/2019 07:14:00 PM EDT DETOX [facility] DETOX P 06/20/2019 07:11:00 PM EDT DETOX [facility] DETOX P 06/20/2019 07:09:00 PM EDT DETOX [facility] DETOX P 06/20/2019 07:09:00 PM EDT DETOX [facility] DETOX P 06/20/2019 07:04:00 PM EDT DETOX [facility] DETOX P 06/20/2019 07:04:00 PM EDT DETOX [facility] DETOX P 06/20/2019 07:03:00 PM EDT DETOX [facility] DETOX P 06/20/2019 07:02:00 PM EDT DETOX [facility] DETOX P 06/20/2019 07:02:00 PM EDT DETOX [facility] DETOX P 06/20/2019 07:01:00 PM EDT DETOX [facility] DETOX P 06/20/2019 06:48:00 PM EDT DETOX [facility] DETOX P 06/20/2019 06:47:00 PM EDT DETOX [facility] DETOX Emergency Attender: Luis Marcus 04/20/2019 01:31: 00 PM [facility] MDAttender: STAFF ED STAFF EST - 04/20/2019 Medical Center PHYSICIANAdmitter: Luis 06:58:00 PM EST [facility] ESPARZA Patient discharged. Attender: [facility] 03/02/2019 03:23:00 [facility] EST - 03/02/2019 [facility] 03:23:00 PM EST Center) Outpatient 03/01/2019 12:38:00 [facility] Center Outpatient 03/01/2019 12:00:00 [facility] Emergency Attender: ED STAFF H 02/24/2019 01:47:00 [facility] PHYSICIANAttender: PM EST - 02/24/2019 Medical Center STAFF ED STAFF 03:37:00 PM EST PHYSICIANAdmitter: ED STAFF PHYSICIAN Patient discharged. Attender: [facility] 01/15/2019 05:46:00 [facility] EST - 01/15/2019 [facility] 05:46:00 PM EST Center) Inpatient Attender: ASHLEY FISHER-1D 01/11/2019 04:34:00 [facility] MICHAELBNSHANYANAdmitte PM EST - 01/29/2019 Hospital r: LALO BRANDON 11:19:00 PM EST Patient discharged. Attender: 01/11/2019 [facility] [id number] 04:34:00 PM [facility] [id number] Outpatient STV 01/11/2019 [facility] 12:43:00 PM EST - Hospita l 01/11/2019 05:40:00 PM EST Patient discharged. Attender: 01/11/2019 [facility] [id number] 12:43:00 PM [facility] [id number] Inpatient Attender: LISS LEIJA YAttender: H-HAL5 01/08/2019 [facility] STAFF ED STAFF PHYSICIANAdmitter: 12:25:00 PM E [facility] LISS LEIJA YReferrer: LISS SERNA - 01/11/2019 LISS Y 12:18:00 PM EST Patient discharged. Outpatient 01/08/2019 12:18:00 PM [facility] Center Outpatient 01/08/2019 12:00:00 AM [facility] - 01/11/2019 Center 12:00:00 AM [facility] Outpatient 01/05/2019 09:52:00 AM [facility] EDT Center Outpatient 01/05/2019 12:00:00 AM [facility] EDT Center Inpatient Attender: Last H-HAL6 12/29/2018 03:15:00 PM [facility] EDT - 01/04/2019 Center DOAdmitter: Last 01:40:00 PM [facility] Patient discharged. Attender: Counts Include [facility] 09/13/2018 TYE N ([facility] 01:54:00 PM EDT - [facility] 09/13/2018 Center) 01:54:00 PM EDT Emergency H 09/12/2018 [facility] 01:44:00 PM EDT Medical C enter Emergency H 09/03/2018 [facility] 11:24:00 AM EDT Medical C enter Attender: [facility] 07/24/2018 TYE N ([facility] ESPAR[facility] [place] 11:22:00 AM EDT [facility] 07/24/2018 Center) 11:22:00 AM EDT Attender: [facility] 07/17/2018 TYE N ([facility] [place] 10:51:00 AM EDT [facility] 07/17/2018 Center) 10:51:00 AM EDT OutpatientOFFICE/O Attender: [facility] 03/31/2018 STACY ([facility] 10:38:00 AM EST [facility] EST 03/31/2018 Center) 10:38:00 AM EST OutpatientOFFICE/O Attender: [facility] 03/21/2018 NEXTGEN ([facility] VISIT, [facility] 10:01:00 AM EST - [facility] NEW 03/21/2018 Center) 10:01:00 AM EST Immunizations Vaccine Date Status Description Data Source(s) New in 2011. IIV4 12/30/2018 completed [facility] ephs Medical 06:15:00 PM EDT Center pneumococcal 03/17/2018 completed [facility] Con M edical polysaccharide PPV23 04:08:00 PM EST Cent er pneumococcal 03/17/2018 completed [facility] edical polysaccharide PPV23 04:08:00 PM EST Cent er Medications Medication Brand Start Product Dose Route [facility] Indications Reaction Description Data Name Date Form Instructions Instructions Source(s) atorvastati atorva ORAL active take 1 NEXTGEN n 40 MG statin 2020 {tabl tablet by (Tim nt Oral Tablet 40 mg 12:00: et} oral route Con atorvastati tablet 00 AM every day Medical n 40 mg EDT Casey) tablet atorvastati atorva ORAL complet take 1 NEXTGEN n 40 MG statin 2020 {tabl ed tablet by (Tim nt Oral Tablet 40 mg 12:00: et} oral route Con atorvastati tablet 00 AM every day Medical n 40 mg EDT [place]) tablet Chlorthalid chlort ORAL active take 1 NEXTGEN one 25 MG halido 2020 {tabl tablet by (S aint Oral Tablet ne 25 12:00: et} oral route Con chlorthalid mg 00 AM every day Ak dical one 25 mg tablet EDT Center) tablet atorvastati atorva ORAL complet take 2 NEXTGEN n 20 MG statin 2020 {tabl ed tablet by (Tim nt Oral Tablet 20 mg 12:00: et} oral route Con atorvastati tablet 00 AM every day Medical n 20 mg EDT Casey) tablet Aspirin 81 aspiri ORAL active take 1 N EXTGEN MG Delayed n 81 2020 {tabl tablet by (Sa int Release mg 12:00: et} oral route Flex phs Oral Tablet tablet 00 AM every day Medical aspirin 81 ,delay EDT Center) mg ed tablet,cathy releas yed release e atorvastati atorva .00 ORAL complet take 1 NEXTGEN n 20 MG statin 2019 {tbl} ed tablet by (Tim nt Oral Tablet 20 mg 12:00: oral route Con atorvastati tablet 00 AM every day Medical n 20 mg EDT Center) tablet Medication administered onsite Thiamine 100 THIAMINE 06/28/2019 TABLET [address] [facility] MG Oral Tablet MONONITRATE 12:00:00 AM DAY [place] THIAMINE (VIT B1) EDT Hospita l MONONITRATE (VITAMIN B-1) - (VIT B1) 100 MG TABLET [place] (VITAMIN B-1) 100 MG TABLET Folic Acid 1 FOLIC ACID 1 06/28/2019 TABLET [address] [facility] MG Oral Tablet MG TABLET 12:00:00 AM DAY [place] FOLIC ACID 1 EDT Hospita l MG TABLET - [place] Methadone METHADONE HCL 06/28/2019 TABLET [address] [facility] Hydrochloride 10 MG TABLET 12:00:00 AM [place] 10 MG Oral EDT Hospital Tablet - METHADONE HCL [place] 10 MG TABLET MULTIVITAMIN 06/28/2019 TABLET [address] [facility] (MULTI-VITAMIN 12:00:00 AM DAY [place] DAILY) 1 EACH EDT Hospit al TABLET - [place] Chlorthalidone Chlorthalidone 01/19/2019 1 ORA completed Chlorth [facility] 25 MG Oral - 25 MG ORAL 12:00:00 AM Tablet L [facility]idone [facility] Tablet Tablet EST - 25 MG [...] 20 mg Tablet Medi estrella tablet [Xarelt [place]) o] Methadone methaDONE 40 1 completed [facility] Hydrochloride mg Antonio s 0.333 MG/ML tablet,soluble Medical Oral , Ordered By: Center Suspension Mickey Jamal, methaDONE 40 MDDirections: mg 1 tablet oral [...] mg Capsule, Con Capsule Ordered By: Medic al indomethacin Amadou [place] 50 mg Capsule, Fahn[place], Ordered By: MDDirections: Amadou 1 capsule oral Fahnrich, three times a MDDirections: day 1 capsule oral three times a day atorvastatin atorvastatin 1 completed [facility] 20 MG Oral 20 mg Tablet, Con Tablet Ordered By: Medica l atorvastatin Shelly Cente r 20 mg Tablet, Gerald, Ordered By: MDDirections: Shelly 1 tablet oral [place], daily at MDDirections: bedtime 1 tablet oral daily at bedtime Thiamine 100 thiamine HCl 1 completed [facility] MG Oral Tablet (vitamin B1) [facility] thiamine HCl 100 mg Tablet, Medical (vitamin B1) Ordered By: [place] 100 mg Tablet Shelly Ordered By: Shelly Duarte MDDirections: Gerald, 1 tablet oral MDDirections: daily 1 tablet oral daily pantoprazole pantoprazole 1 completed [facility] 40 MG Delayed 40 mg Clint hs Release Oral tablet,delayed Medical Tablet release Casey pantoprazole (DR/EC), 40 mg Ordered By: tablet,delayed Shelly release Gerald, (DR/EC), MDDirections: Ordered By: 1 tablet oral Shelly daily before Bottrell, breakfast MDDirections: 1 tablet oral daily before breakfast multivit with 1 completed Theral o Saint min-folic acid gix Clint hs ([facility]) 0.4 on Cente r mg Tablet, Ordered By: Shelly Duarte MDDirections: 1 tablet oral daily Ibuprofen 600 ibuprofen 600 1 completed Saint MG Oral Tablet mg Tablet, Con ibuprofen 600 Ordered By: Medical mg Tablet, Shelly Center Ordered By: Shelly Duarte MDDirections: Gerald, 1 [...] oral tablet,soluble daily , Ordered By: Shelly Duarte, MDDirections: 1 tablet oral daily Methadone methaDONE 40 1 completed [facility] Hydrochloride mg Antonio s 0.333 MG/ML tablet,soluble Medical Oral , Ordered By: Center Suspension Jessika methaDONE 40 Nuno, mg MDDirections: tablet,soluble 1 tablet oral , Ordered By: daily Jessika Nuno, MDDirections: 1 tablet oral daily Chlorthalidone chlorthalidone 1 completed [facility] 25 MG Oral 25 mg Tablet, Con Tablet Ordered By: Medicflavia berry chlorthalidone Shelly [address] 25 mg Tablet, Gerald, Ordered By: MDDirections: Shelly 1 tablet oral Gerald, libertad MDDirections: 1 tablet oral daily apixaban 5 MG Eliquis 5 mg 1.00 ORA active a pixaba NEXTGEN Oral Tablet tablet {tbl} L n 5 MG (Sa int [Eliquis] Oral Con Eliquis 5 mg Tablet Medic al tablet [Eliqui Center) s] atorvastatin atorvastatin 1.00 ORA completed take 1 NEXTGEN 20 MG Oral 20 mg tablet {tbl} L table t (Saint Tablet by oral Con atorvastatin route Medica l 20 mg tablet every Center ) day Chlorthalidone chlorthalidone 1 completed [facility] 25 MG Oral 25 mg Tablet, Con Tablet Ordered By: Medica kristi chlorthalidone Mickey Orozcoro, Center 25 mg Tablet, MDDirections: Ordered By: 1 tablet oral Mickey Berry, daily MDDirections: 1 tablet oral daily atorvastatin atorvastatin 1 completed [facility] 20 MG Oral 20 mg Tablet, Con Tablet Ordered By: Medica kristi atorvastatin Mickey Berry, Center 20 mg Tablet, MDDirections: Ordered By: [...] Tablet (Xarelto) 15 Con [Xarelto] mg Tablet, Medi estrella rivaroxaban Ordered By: C enter (Xarelto) 15 Mickey Berry, mg Tablet, [...] ns: oral Center Varenicline 1 completed EVERY [facility] Tartrate DAY [place] (Chantix) 1 Hospital Each Tab.ds.pk - Tab.ds.pk, 1 Nisula h Tab Oral methodone completed Health System atorvastatin ATORVASTATIN TABLET 20 completed AT [facility] 20 MG Oral CALCIUM BEDTIME Cor nwall Tablet (LIPITOR) 20 DAILY Hosp ital [Lipitor] MG TABLET - ATORVASTATIN [facility] Center CALCIUM (LIPITOR) 20 MG TABLET Methadone methadone 40 1.00 ORA completed ta ke 1 NEXTGEN Hydrochloride mg soluble {tbl} L tabl et (Saint 0.333 MG/ML tablet by oral Harsha ephjagdish Oral route Medical Suspension every Center) methadone [...] Cent er sodium 275 mg Amadou Tablet, Fahnrich, Ordered By: MDDirections: Amadou 1 tablet oral Fahnrich, three times a MDDirections: day PRN pain 1 tablet oral three times a day PRN pain Amoxicillin amoxicillin-po 1 completed [facility] 875 MG / t clavulanate Sandra sephjagdish Clavulanate 875 mg-125 mg Medical 125 MG Oral Tablet, Cente r Tablet Ordered By: amoxicillin-po Amadou t clavulanate Fahnrich, 875 mg-125 mg MDDirections: Tablet, 1 tablet oral Ordered By: every twelve Amadou hours with or Fahnrich, after food MDDirections: 1 tablet oral every twelve hours with or after food atorvastatin atorvastatin 1 completed [facility] 20 MG Oral 20 mg Tablet, Con Tablet Ordered By: Medicflavia berry atorvastatin Shelly Cente r 20 mg Tablet, Gerald, Ordered By: MDDirections: Shelly 1 tablet oral Anuprell, daily at MDDirections: bedtime 1 tablet oral daily at bedtime multivit with 1 completed Theral o [facility] min-folic acid gix Clint hs ([facility] [facility]) 0.4 on Cente r mg Tablet, Ordered By: Shelly Duarte MDDirections: 1 tablet oral daily Amoxicillin Amoxicillin/Po [...] ibuprofen 600 Ordered By: Medical mg Table[facility] Ordered By: Shelly Duarte MDDirections: Bott[place], 1 tablet oral MDDirections: every six 1 tablet oral hours PRN PAIN every six hours PRN PAIN Chlorthalidone chlorthalidone 1 completed [facility] 25 MG Oral 25 mg Tablet, Con Tablet Ordered By: Medicflavia berry chlorthalidone Shelly Evon ter 25 mg Tablet, Gerald, Ordered By: MDDirections: Shelly 1 tablet oral Gerald, daily MDDirections: 1 tablet oral daily pantoprazole pantoprazole 1 completed [facility] 40 MG Delayed 40 mg Clint hs Release Oral tablet,[facility] Medical Tablet release Casey pantoprazole (/EC), 40 mg Ordered By: tablet,delayed Shelly release Gerald, (/EC), MDDirections: Ordered By: 1 tablet oral Shelly daily before Gerald, breakfast MDDirections: 1 tablet oral daily before breakfast Thiamine 100 thiamine HCl 1 completed [facility] MG Oral Tablet (vitamin B1) Con thiamine HCl 100 mg Tablet, Medical (vitamin B1) Ordered By: Elder 100 mg Tablet, Shelly Ordered By: Shelly Duarte MDDirections: Gerald, 1 tablet oral MDDirections: daily 1 tablet oral daily Chlorthalidone CHLORTHALIDONE TABLET [address] [facility] 25 MG Oral (HYGROTON) 25 DAY [place] Tablet MG TABLET Hospital CHLORTHALIDONE - (HYGROTON) 25 [place] [...] name Policy type Policy ID Covered Covered libertarian's Policy P luz maria / Coverage libertarian ID relationship to [place] Inf ormation type [place] MEDICARE [id number] SP [id number] AARP O [id number] M [id number] [id number] T[address] [facility] [id number] O [id number] 01 [id number] AETNA O [id number] AETNA USHC [id number] SP [id number] TERRELL MEDICARE AETNA USHC [id number] SP [id number] PPO AETNA USHC SP PPO MAKI MEDICARE [id number] SP [id number] AETNA [id number] SP [id number] MEDICARE O [id number] SEIU O [id number] M [id number] 01 [id number] [id number] M [id number] 01 [id number] [id number] MDM AETNA [id number] Self [id number] HEALTH PLAN SELF PAY 000 Self 000 LOCAL [id number] Self [id number] BENEFIT FUND MEDICARE B [id number] Self [id number] MEDICARE A [id number] Self [id number] O [id number] 01 [id number] LOCAL [id number] O [id number] LOCAL [id number] - [id number] SP [id number] [facility] Problems, Conditions, and Diagnoses Code Display Name Description Problem Type Effective Data Dates Source(s) 31040243 Hyperlipidemia Hyperlipidemia Problem NEXTGE N (Health System) [id number] Benign Benign Problem NEXTGEN hypertension hypertension (Health System) 886947854 Foreign body Foreign body Problem NEXTGEN (Health System) Z13.9 Encounter for ENCOUNTER FOR Diagnosis 10/17/2019 [facility] Sandra horn screening, SCREENING, 02:40:00 PM Medical unspecified UNSPECIFIED EDT Center Z71.9 Counseling, COUNSELING, Diagnosis 09/06/2019 [facility] Alvarez s unspecified UNSPECIFIED 10:14:00 AM Medical EDT Center Z71.6 Tobacco abuse TOBACCO ABUSE Diagnosis 09/06/2019 [facility] Sandra bandas counseling COUNSELING 10:14:00 AM Medical EDT Center E78.5 Hyperlipidemia, HYPERLIPIDEMIA, Diagnosis 09/06/2019 Allison Andujar unspecified UNSPECIFIED 10:14:00 AM Medical EDT Center Z68.26 Body mass index BODY MASS INDEX Diagnosis 06/20/2019 [facility] (BMI) 26.0-26.9, (BMI) 26.0-26.9, 09:42:00 PM [facility] adult ADULT [facility] E66.3 Overweight OVERWEIGHT Diagnosis 06/20/2019 [facility] 09:42:00 PM [facility] R19.7 Diarrhea, DIARRHEA, Diagnosis 06/20/2019 [facility] unspecified UNSPECIFIED 09:42:00 PM [facility] R25.1 Tremor, TREMOR, Diagnosis 06/20/2019 [facility] unspecified UNSPECIFIED 09:42:00 PM [facility] R74.0 Nonspecific NONSPEC ELEV OF Diagnosis 06/20/2019 [facility] elevation of LEVELS OF 09:42:00 PM [place] levels of TRANSAMNS LACTIC [facility] Hospit al - transaminase and ACID [place] lactic acid dehydrogenase [LDH] Y90.7 Blood alcohol BLOOD ALCOHOL Diagnosis 06/20/2019 [facility] level of 200-239 LEVEL OF 200-239 09:42:00 PM C ornwall mg/100 ml MG/100 ML [facility] D69.6 Thrombocytopenia, THROMBOCYTOPENIA, Diagnosis 06/20/2019 [facility] unspecified UNSPECIFIED 09:42:00 PM [facility] R00.0 Tachycardia, TACHYCARDIA, Diagnosis 06/20/2019 [facility] unspecified UNSPECIFIED 09:42:00 PM [facility] F11.20 Opioid dependence, OPIOID DEPENDENCE, Diagnosis [facility] uncomplicated UNCOMPLICATED 09:42:00 PM [facility] F10.239 Alcohol dependence ALCOHOL DEPENDENCE Diagnosis [facility] with withdrawal, WITH WITHDRAWAL, 09:42:00 PM C [place] unspecified UNSPECIFIED [facility] F10.231 Alcohol dependence ALCOHOL DEPENDENCE Diagnosis [facility] with withdrawal WITH WITHDRAWAL 09:42:00 PM Cor nwall delirium DELIR [facility] F10.20 Alcohol ALCOHOL Diagnosis 06/20/2019 [facility] dependence, DEPENDENCE, 09:42:00 PM [place]in uncomplicated UNCOMPLICATED [facility] F11.10 Opioid abuse, OPIOID ABUSE, Diagnosis 06/20/2019 [facility] uncomplicated UNCOMPLICATED 09:42:00 PM [facility] Y99.9 Unspecified UNSPECIFIED Diagnosis 04/20/2019 [place] s external cause EXTERNAL CAUSE 01:31:00 PM Medic al status STATUS EST Center Y92.[address] Diagnosis 04/20/2019 [facility] or not applicable OR NOT APPLICABLE 01:31:00 PM Medical EST Center Y93.9 Activity, ACTIVITY, Diagnosis 04/20/2019 [facility] unspecified UNSPECIFIED 01:31:00 PM Medical EST Center W01.0XXA Fall on same level FALL SAME LEV FROM Diagnosis 0 [facility] from slipping, SLIP/TRIP W/O 01:31:00 PM Medica [...] ENCOUNTER FOR ENCOUNTER FOR Diagnosis 02/24/2019 [facility] EXAMINATION AND EXAMINATION AND 01:47:00 PM Med ical OBSERVATION FOR OBSERVATION FOR EST Cent er OTH REASONS OTH REASONS F10.20 Alcohol Alcohol Diagnosis 01/29/2019 dependence, dependence, 01:37:00 PM [facility] uncomplicated [facility] Y90.8 Blood alcohol BLOOD ALCOHOL Diagnosis 01/11/2019 [facility] Sandra [facility] level of 240 LEVEL OF 240 12:18:00 PM Medical mg/100 ml or more MG/100 ML OR MORE EST Center F11.20 Opioid dependence, OPIOID DEPENDENCE, Diagnosis 9 [facility] uncomplicated UNCOMPLICATED 12:18:00 PM Medical EST Center F10.239 Alcohol dependence ALCOHOL DEPENDENCE Diagnosis 9 [facility] with withdrawal, WITH WITHDRAWAL, 12:25:00 PM M edical unspecified UNSPECIFIED EST Center F10.229 Alcohol dependence ALCOHOL DEPENDENCE Diagnosis 9 [facility] with intoxication, WITH INTOXICATION, 01:40:00 PM Medical unspecified UNSPECIFIED EDT Center K85.20 Alcohol induced ALCOHOL INDUCED Diagnosis 01/04/2019 Allison Andujar acute pancreatitis ACUTE PANCREATITIS 01:40:00 PM Medical without necrosis WITHOUT NECROSIS EDT Ce nter or infection OR INFCT Z86.711 Personal history PERSONAL HISTORY Diagnosis 01/04/2019 [place] Andujar of pulmonary OF PULMONARY 01:40:00 PM Medical embolism EMBOLISM EDT Center R07.9 Chest pain, CHEST PAIN, Diagnosis 12/29/2018 [facility] dubon unspecified UNSPECIFIED 03:15:00 PM Medical EDT Center F19.10 Other psychoactive OTHER PSYCHOACTIVE Diagnosis 9 [facility] substance abuse, SUBSTANCE ABUSE, 01:44:00 PM M edical uncomplicated UNCOMPLICATED EDT Center F10.129 Alcohol abuse with ALCOHOL ABUSE WITH Diagnosis 9 [facility] intoxication, INTOXICATION, 01:44:00 PM Medical unspecified UNSPECIFIED EDT Center R42 Dizziness and DIZZINESS AND Diagnosis 09/12/2018 [facility] hron giddiness GIDDINESS 01:44:00 PM Medical EDT Center Z72.0 Tobacco use TOBACCO USE Diagnosis 09/03/2018 [facility] Al[facility] s 11:24:00 AM Medical EDT Center R07.89 Other chest pain OTHER CHEST PAIN Diagnosis 09/03/2018 Sa int Con 11:24:00 AM Medical EDT Center Diagnosis [facility] Diagnosis [facility] Diagnosis [facility] Surgeries/Procedures Procedure Description Date Indications Data Source(s) OFFICE/OUTPATIENT VISIT, 10/17/2019 NEX TGEN ([facility] EST 12:00:00 AM EDT [facility] 10/17/2019 [place]) 12:00:00 AM EDT OFFICE/OUTPATIENT VISIT, 09/06/2019 NEX TGEN ([facility] EST 12:00:00 AM EDT [facility] 09/06/2019 [place]) 12:00:00 AM EDT ROUTINE VENIPUNCTURE 09/06/2019 [facility] ([facility] 12:00:00 AM EDT [facility] 09/06/2019 [place]) 12:00:00 AM EDT OFFICE/OUTPATIENT VISIT, 03/31/2018 NEX TGEN ([facility] EST 12:00:00 AM EST [facility] 03/31/2018 [place]) 12:00:00 AM EST OFFICE/OUTPATIENT VISIT, 03/21/2018 NEX TGEN ([facility] NEW 12:00:00 AM EST [facility] 03/21/2018 [place]) 12:00:00 AM EST Results ID Date Data Source [id number] 11/27/2019 01:20:00 PM EDT [facility] Name Value Range Interpretation Description Data Sup porting Code Source(s) Document(s ) SARS [facility] coronavirus 2 RNA This lab was ordered by [facility] Ac ct Bill Inter and reported by [facility]. ID Date Data Source Liver 09/06/2019 12:00:00 PM EDT Health System Profile.[id number] Name Value Range Interpretation Description Data Sup [...] s"> (3.5-5.0 G/DL)</content> ID Date Data Source LIPID.[id number] 09/06/2019 12:00:00 PM EDT [facility] Name Value Range Interpretation Description Data Sup porting Code Source(s) Document(s ) Triglyceride < 150 Above high normal <content Saint [Mass/volume] in styleCode="[facility] Serum or Plasma d">Triglycerid [facility] </content>209 MG/DL H<content styleCode="Katie lics"> (< 150 MG/DL)</conten t> Cholesterol -<200 Above high normal <content Saint [Mass/volume] in styleCode="[facility] Serum or Plasma d">Cholesterol Medical </content>262 Center MG/DL H<content styleCode="Katie lics"> (-<200 MG/DL)</conten t> UNK > 60 <content Saint styleCode="[facility] d">HDL- Medical Cholesterol Center </content>73 MG/DL<content styleCode="Katie lics"> (> 60 MG/DL)</conten t> UNK < 100 Above high normal <content Saint styleCode="[facility] d">LDL-Cholest [facility] naa Center </content>147 MG/DL H<content styleCode="Katie lics"> (< 100 MG/DL)</conten t> ID Date Data Source HematologyRou.[id number] 09/06/2019 12:00:00 PM EDT [facility] 0400 Name Value Range Interpretation Description Data [...] Saint styleCode="Bold Con ">Monocyte Medical Count Center </content>0.56 KCUMM<content styleCode="Ital ics"> (0.2-0.9 KCUMM)</content > Eosinophils 0-5.0 <content Saint [#/volume] in styleCode="Bold Con Blood by ">Eosinophil Medical Automated count </content>2.4 Center %<content styleCode="Ital ics"> (0-5.0 %)</content> UNK 0.0-0.6 <content Saint styleCode="Bold Con ">Eosinophil Medical Count Center </content>0.17 KCUMM<content styleCode="Ital ics"> (0.0-0.6 KCUMM)</content > Basophils 0.0-1.0 <content Saint [#/volume] in styleCode="Bold [facility] Blood by ">Basophil Medical Automated count </content>0.9 [...] (< 1 %)</content> ID Date Data Source GFR(Creatinine).[id number] 09/06/2019 12:00:00 PM EDT [facility] 0-0400 Name Value Range Interpretation Code Description Data Yue rce(s) Supporting Document(s ) UNK > 60 <content [facility] styleCode="Bold"> Medical Cent er EGFR </content>120 GFR<content styleCode="Italic s"> (> 60 GFR)</content> ID Date Data Source MROUTINECCDA.[id number] 09/06/2019 12:00:00 PM EDT [facility] -0400 Name Value Range Interpretation Description Data Sup porting Code Source(s) Document(s ) UNK >= 1.0 <content [facility] styleCode="Bold Medical ">AG Ratio Center </content>1.1 <content styleCode="Ital ics"> (>= 1.0 )</content> UNK 4.2-5.8 <content [facility] styleCode="Bold Medical ">Hemoglobin Center A1C </content>5.3 %<content styleCode="Ital ics"> (4.2-5.8 %)</content> UNK 2.3-3.5 Above high normal <content [facility] styleCode="Bold Medical ">Globulin Center </content>3.6 G/DL H<content styleCode="Ital ics"> (2.3-3.5 G/DL)</content> Protein 6.3-8.2 <content [facility] [Mass/volum styleCode="Bold Medical e] in Serum ">Total Protein Center or Plasma </content>7.7 G/DL<content styleCode="Ital ics"> (6.3-8.2 G/DL)</content> ID Date Data Source [id number] 09/06/2019 12:00:00 PM EDT [facility] Name Value Range Interpretation Description Data Sup porting Code Source(s) Document(s ) Potassium 3.5-5.3 <content Saint [Moles/volume] in styleCode="Bold"> Flex [facility] Serum or Plasma Potassium Medical </content>4.2 Center MEQ/L<content styleCode="Italic s"> (3.5-5.3 MEQ/L)</content> Sodium 137-145 Below low <content Saint [Moles/volume] in normal styleCode="Bold"> Flex [facility] Serum or Plasma Sodium Medical </content>136 Center [...] s"> (3.5-5.0 G/DL)</content> ID Date Data Source [id number] 08/20/2019 12:00:00 AM EDT [facility] Name Value Range Interpretation Code Description Data Yue rce(s) Supporting Document(s ) 2019-nCoV [facility] RNA XXX MIRTA+probe- Imp This lab was ordered by [facility] and reported by [facility]. ID Date Data Source [id number] 07/04/2019 02:59:00 PM EDT [facility]: TITA PULIDO JR STATUS: DIS INACCOUNT #: [id number] ADM UNIT #: [id number] ROOM/BED: [place] [id number]: M ATTEND: KRSITI CASTORENA MDRADOB: [birth year] AGE: 69 AUTHOR: TOM CASTORENA MD PCP: NO DOCTOR Service Date/Time: 07/04/19 1455 Discharge Summ graeme.Date of Admission: 06/20/19Date of Discharge: 06/27 Disposition: [inpatient rehab]Course of Hospitalization: [69-year-old alcoholic sent in from [facility] due to alcohol intoxication/withdrawal. He is visiting family from [place]. Cj teague was concerned due to his alcohol dependence. [...] discussion with sister in detail. Physical Exam y sical ExamConstitutional alert, awake, no acute distressEyes [...] ew Onset STK/TIA? No Billing Inpatient CodesDischarge 86105 Electronically Sign ed by TOM CASTORENA MD on 07/04/19 at 1458 TOM CASTORENA MD Electronic ally Signed 07/04/19 1458 Providers:TOM CASTORENA MD Report Entered Date/Time: 07/04/19 1455Current Report Status: Signed Report #: [id number] PCP ID: NONE ATTENDING ID: DAVE AUTHOR ID: DAVE Name Value Range Interpretation Code Description Data Yue rce(s) Supporting Document(s ) ID Date Data Source [id number] 06/28/2019 12:37:00 PM EDT [facility] PAT[facility]: TITA PULIDO JR STATUS: ADM INACCOUNT #: [id number] ADM UNIT #: [id number] ROOM/BE D: 509-01SEX: M ATTEND: KRISTI CASTORENA [...] 0247 Folic Acid 1 MG DAILY 06/20 09 AC 06/27 0941 Multivitamins 1 TABLET DAILY 06/20 09 AC 06/27 Therap eutic 0941 Lorazepam 1 MG Q2H PRN 06/19 2199 CKD 06/26 2053 Dose Instructions:(1)Erythromycin: TO RIGHT [...] o'clock.. Currently patient is in no ac [place] distress, continue thiamine, folate, Valium p.r.n. for [...] dependence, unc omplicated Reason Cont. Hospitalization:[facility] ent CodesFollow-up [id number] at 1237 TOM CASTORENA MD Electronically Signed 06/28/19 [phone] Providers:TOM CASTORENA MD Report Entered Date/Time: 06/28/19 1127Current Report S tatus: Signed Report #: [id number] PCP ID: NONE ATTENDING ID: SHSHA AUTHOR ID: SHSHA Name Value Range Interpretation Code Description Data Yue rce(s) Supporting Document(s ) ID Date Data Source [id number] 06/28/2019 08:51:00 AM EDT [facility] Name Value Range Interpretation Description Data Sup porting Code Source(s) Document(s ) GLUCOSE 100 74-106 [facility] mg/dL [facility] BUN 14 mg/dL 7-18 [facility] CREATININE 0.668 0.700-1. Below low normal [facility] mg/dL 300 [facility] EST.GLOMERULAR 118.58 >=60.0 [facility] FILTRATION mL/min [facility] EST.GFR 143.48 >=60.0 [facility] mL/min [facility] PHARMACY 71.68 >=60.00 [facility] COCKCROFT-DARA mL/min [place] [facility] BUN/CREAT 20.9 6.0-20.[address] [facility] RATIO [facility] SODIUM 134 135-145 Below low normal [facility] mmol/L [facility] POTASSIUM 3.9 3.5-5.1 [facility] mmol/L [facility] CHLORIDE 104 98-107 [facility] mmol/L [facility] CO2 26 21-32 [facility] mmol/L [facility] ANION GAP 4.0 8-20 Below low normal [facility] mmol/L [facility] AST 62 U/L 15-37 Above high normal [facility] ALK PHOS 125 U/L 45-117 Above high normal [facility] TOTAL 0.6 0.2-1.0 [facility] BILIRUBIN mg/dL [facility] TOTAL PROTEIN 6.7 g/dL 6.4-8.2 [facility] ALBUMIN 2.8 g/dL 3.4-5.0 Below low normal [facility] GLOBULIN 3.9 g/dL 2.6-3.8 Above high normal [facility] A/G RATIO 0.7 1.0-5.0 Below low normal [facility] CALCULATION [facility] CALCIUM 8.9 8.5-10.1 [facility] mg/dL [facility] ALTI 111 U/L 16-61 Above high normal [facility] OSMOLALITY 269 273-304 Below low normal [facility] CALCULATION mos/kg [facility] ID Date Data Source [id number] 06/27/2019 04:26:00 PM EDT [facility] PATIENT: TITA PULIDO JR STATUS: ADM INACCOUNT #: [id number] ADM UNIT #: [id number] ROOM/BE D: L509-01SEX: M ATTEND: KRISTI CASTORENA MDRADOB: [birth year] AGE: [...] unspecified Assess Plan:69-year-old male admitted with: -ac [place] alcohol intoxication: Currently doing well, there is [...] icated Reason Cont. Hospitalization:Placement Billing Inpatient CodesFollow-up [id number] E lectronically Signed by TOM CASTORENA MD on 06/27/19 at 1425 Addendum 1: 06/27/19 16 26 by TOM CASTORENA MD AddendumTextspoke to the sister Megha [phone] in detail reg POC,she wishes to speak to the for an update,Nurse made aware Electronically S igned by TOM CASTORENA MD on 06/27/19 at 1626 TOM CASTORENA MD Electronic ally Signed 06/27/19 1425 Providers:TOM CASTORENA MD Report Entered Date/Time: 06/27/19 1052Current Report Status: Signed Report #: [id number] PCP ID: NONE ATTENDING ID: SHSHA [facility] Name Value Range Interpretation Code Description Data Yue rce(s) Supporting Document(s ) ID Date Data Source [id number] 06/26/2019 05:10:00 PM EDT [facility] PATIENT: TITA PULIDO JR STATUS: ADM INACCOUNT #: [id number] ADM UNIT #: [id number] ROOM/BE D: L.509-01SEX: M ATTEND: MARGUERITE ALVARADO DONDOB: [birth year] AGE: 69 AUTHOR: HOMER ALVARADO DO PCP: NO DOCTOR Service Date/Time: 06/26/19 170 Subjective.Improvement in mental s tatus. More oriented. [...] Cont. Hospitalization:barbara placement Bill ing Inpatient CodesFollow-up 13034 at 1709 HOMER ALVARADO DO Electronically Signed 06/26/19 1 709 Providers:HOMER ALVARADO DO Report Entered Date/Time: 06/26/19 1706Current Report S tatus: Signed Report #: [id number] PCP ID: NONE ATTENDING ID: LIZA AUTHOR ID: LIZA Name Value Range Interpretation Code Description Data Yue rce(s) Supporting Document(s ) ID Date Data Source [id number] 06/25/2019 05:14:00 PM EDT [facility] PATIENT: TITA PULIDO JR STATUS: ADM INACCOUNT #: [id number] ADM UNIT #: [id number] ROOM/BE D: 509-01SEX: M ATTEND: MARGUERITE ALVARADO DONDOB: [birth year] AGE: 69 AUTHOR: HOMER ALVARADO DO [...] Cont. H ospitalization:alcohol withdrawal Billing Inpatient CodesFollow-up [id number] Electroni tsering Signed by HOMER ALVARADO DO on 06/25/19 at 1713 HOMER ALVARADO DO Elec tronically Signed 06/25/19 1713 Providers:HOMER ALVARADO DO Report Entered Mane e/Time: 06/25/19 1712Current Report Status: Signed Report #: [id number] PCP ID: NONE ATTENDING ID: LIZA AUTHOR ID: LIZA Name Value Range Interpretation Code Description Data Yue rce(s) Supporting Document(s ) ID Date Data Source [id number] 06/25/2019 08:58:00 AM EDT [facility] Name Value Range Interpretation Description Data Sup porting Code Source(s) Document(s ) GLUCOSE 102 74-106 [facility] mg/dL [facility] BUN 17 mg/dL 7-18 [facility] CREATININE 0.654 0.700-1. Below low normal [facility] mg/dL 300 [facility] EST.GLOMERULAR 121.51 >=60.0 [facility] FILTRATION mL/min [facility] EST.GFR 147.03 >=60.0 [facility] mL/min [facility] PHARMACY 71.68 >=60.00 [facility] COCKCROFT-DARA mL/min [place] [facility] BUN/CREAT 25.9 6.0-20.0 Above high normal [facility] RATIO [facility] SODIUM 138 135-145 [facility] mmol/L [facility] POTASSIUM 4.2 3.5-5.1 [facility] mmol/L [facility] CHLORIDE 105 98-107 [facility] mmol/L [facility] CO2 23 21-32 [facility] mmol/L [facility] ANION GAP 10.0 8-20 [facility] mmol/L [facility] AST 109 U/L 15-37 Above high normal [facility] ALK PHOS 157 U/L 45-117 Above high normal [facility] TOTAL 0.9 0.2-1.0 [facility] BILIRUBIN mg/dL [facility] TOTAL PROTEIN 7.6 g/dL 6.4-8.2 [facility] ALBUMIN 2.9 g/dL 3.4-5.0 Below low normal [facility] GLOBULIN 4.7 g/dL 2.6-3.8 Above high normal [facility] A/G RATIO 0.6 1.0-5.0 Below low normal [facility] CALCULATION [facility] CALCIUM 9.3 8.5-10.1 [facility] mg/dL [facility] ALTI 152 U/L 16-61 Above high normal [facility] OSMOLALITY 277 273-304 [facility] CALCULATION mos/kg [facility] ID Date Data Source [id number] 06/25/2019 08:58:00 AM EDT [facility] Name Value Range Interpretation Description Data Sup porting Code Source(s) Document(s ) PHOSPHORUS 4.5 mg/dL 2.5-4.9 [facility] ID Date Data Source [id number] 06/25/2019 08:58:00 AM EDT [facility] Name Value Range Interpretation Description Data Sup porting Code Source(s) Document(s ) MAGNESIUM 1.9 mg/dL 1.8-2.4 [facility] ID Date Data Source [id number] 06/25/2019 08:48:00 AM EDT [facility] Name Value Range Interpretation Code Description Data Yue rce(s) Supporting Document(s ) WBC 7.55 K/uL 4.00-10.00 [facility] RBC 4.38 M/uL 4.63-6.08 Below low normal [facility] HGB 13.8 g/dL 13.7-17.5 [facility] HCT 41.1 % 40.1-51.0 [facility] MCV 93.8 fL 80.0-96.0 [facility] MCH 31.5 pg 27.0-33.2 [facility] MCHC 33.6 g/dL 32.2-35.5 [facility] RDW 16.1 % 11.6-14.4 Above high normal [facility] PLT 273 K/uL 150-450 # [facility] Delta: 127 on 06/22/19-0758 MPV 10.4 fL 8.5-11.8 [facility] MARTIR% 59.0 % 38.9-69.8 [facility] LYM% 23.2 % 21.7-51.7 [facility] MONO% 13.6 % 4.7-12.2 Above high normal [facility] EOS% 2.6 % 0.8-7.0 [facility] BASO% 1.2 % 0.1-1.2 [facility] IMMATURE GRANULOCYTE% 0.4 % 0.1-0.3 Above high normal [facility] The immature granulocyte count is an enu meration ofmetamyelocytes, myelocyte, and promyelocytes present in [facility] blood sa mple. It does not include band neutrophilforms. ABSOLUTE NEUTROPHIL 4.45 K/uL 1.46-7.12 [facility] LYM# 1.75 K/uL 0.92-4.30 [facility] MONO# 1.03 K/uL 0.24-0.86 Above high normal [facility] EOSIN# 0.20 K/uL 0.04-0.54 [facility] BASO# 0.09 K/uL 0.01-0.08 Above high normal [facility] IMMATURE GRANULOCYTES# 0.03 K/uL 0.01-0.03 [facility] NRBC 0.0 /100WBC 0.0-0.2 [facility] ID Date Data Source [id number] 06/24/2019 05:02:00 PM EDT [facility] PATIENT: TITA PULIDO JR STATUS: ADM INACCOUNT #: [id number] ADM UNIT #: [id number] ROOM/BE D: [id number]: M ATTEND: MARGUERITE ALVARADO DONDOB: [birth year] AGE: 69 AUTHOR: HOMER ALVARADO DO PCP: NO DOCTOR Service Date/Time: 06/24/19 165 Subjective.Improvement in mentatio n. Participated with PT, [...] - 106 mg/dL) 106 Problem, Assessment P lanPROBLEM, ASSESSMENT PLAN: 1. Alcohol withdrawal ICD Code [...] Cont. Hospitalizati on:etoh withdrawal Billing Inpatient CodesFollow-up 16465 Electronically Sign ed by HOMER ALVARADO DO on 06/24/19 at 1701 HOMER ALVARADO DO Electronically Signed 06/24/19 1701 Providers:HOMER ALVARADO DO Report Entered Date/Time: 1659Current Report Status: Signed Report #: [id number] PCP ID: NONE ATTENDING ID: LIZA AUTHOR ID: LIZA Name Value Range Interpretation Code Description Data Yue rce(s) Supporting Document(s ) ID Date Data Source [id number] 06/24/2019 09:02:00 AM EDT [facility] Name Value Range Interpretation Description Data Sup porting Code Source(s) Document(s ) GLUCOSE 106 74-106 [facility] mg/dL [facility] BUN 14 mg/dL 7-18 [facility] CREATININE 0.543 0.700-1. Below low normal [facility] mg/dL 300 [facility] EST.GLOMERULAR 150.61 >=60.0 [facility] FILTRATION mL/min [facility] EST.GFR 182.[address]60[address] [facility] mL/min [facility] PHARMACY 71.68 >=60.00 [facility] COCKCROFT-DARA mL/min [place] [facility] BUN/CREAT 25.7 6.0-20.[address] [facility] RATIO [facility] SODIUM 137 135-145 [facility] mmol/L [facility] POTASSIUM 4.1 3.5-5.1 [facility] mmol/L [facility] CHLORIDE 104 98-107 [facility] mmol/L [facility] CO2 24 21-[address] [facility] mmol/L [facility] ANION GAP 9.0 8-20 [facility] mmol/L [facility] AST 127 U/L 15-37 Above high normal [facility] ALK PHOS 162 U/L 45-117 Above high normal [facility] TOTAL 0.9 0.2-1.0 [facility] BILIRUBIN mg/dL [facility] TOTAL PROTEIN 7.5 g/dL 6.4-8.2 [facility] ALBUMIN 2.8 g/dL 3.4-5.0 Below low normal [facility] GLOBULIN 4.7 g/dL 2.6-3.8 Above high normal [facility] A/G RATIO 0.6 1.0-5.0 Below low normal [facility] CALCULATION [facility] CALCIUM 9.2 8.5-10.1 [facility] mg/dL [facility] ALTI 162 U/L 16-61 Above high normal [facility] OSMOLALITY 275 273-304 [facility] CALCULATION mos/kg [facility] ID Date Data Source [id number] 06/24/2019 09:02:00 AM EDT [facility] Name Value Range Interpretation Description Data Sup porting Code Source(s) Document(s ) PHOSPHORUS 3.9 mg/dL 2.5-4.9 [facility] ID Date Data Source [id number] 06/24/2019 09:02:00 AM EDT [facility] Name Value Range Interpretation Description Data Sup porting Code Source(s) Document(s ) MAGNESIUM 2.0 mg/dL 1.8-2.4 [facility] ID Date Data Source [id number] 06/23/2019 04:17:00 PM EDT [facility] PATIENT: TITA PULIDO JR STATUS: ADM INACCOUNT #: [id number] ADM UNIT #: [id number] ROOM/BE D: 509-01SEX: M ATTEND: MARGUERITE ALVARADO DONDOB: [birth year] AGE: 69 AUTHOR: HOMER ALVARADO DO [...] normal affect, normal mood Results.Laboratory Tests 06/22 0954 Chemistry Sodium (135 - 145 mmol/L) 137 [...] Cont. Hospitalizati on:alcohol withdrawal Billing Inpatient CodesFollow-up 00065 Electronically Sign ed by HOMER ALVARADO DO on 06/23/19 at 1617 HOMER ALVARADO DO Electronically Signed 06/23/19 1617 Providers:HOMER ALVARADO DO Report Entered Date/Time: 1608Current Report Status: Signed Report #: [id number] PCP ID: NONE ATTENDING ID: LIZA AUTHOR ID: LZIA Name Value Range Interpretation Code Description Data Yue rce(s) Supporting Document(s ) ID Date Data Source [id number] 06/23/2019 10:25:00 AM EDT [facility] Name Value Range Interpretation Description Data Sup porting Code Source(s) Document(s ) GLUCOSE 107 74-106 Above high normal [facility] mg/dL [facility] BUN 11 mg/dL 7-18 [facility] CREATININE 0.580 0.700-1. Below low normal [facility] mg/dL 300 [facility] EST.GLOMERULAR 139.58 >=60.0 [facility] FILTRATION mL/min [facility] EST.GFR 168.89 >=60.0 [facility] mL/min [facility] PHARMACY 71.68 >=60.00 [facility] COCKCROFT-DARA mL/min [place] [facility] BUN/CREAT 18.9 6.0-20.0 [facility] RATIO [facility] SODIUM 137 135-145 [facility] mmol/L [facility] POTASSIUM 3.4 3.5-5.1 Below low normal [facility] mmol/L [facility] CHLORIDE 103 98-107 [facility] mmol/L [facility] CO2 26 21-32 [facility] mmol/L [facility] ANION GAP 8.0 8-20 [facility] mmol/L [facility] AST 183 U/L 15-37 Above high normal [facility] ALK PHOS 175 U/L 45-117 Above high normal [facility] TOTAL 1.3 0.2-1.0 Above high normal [facility] BILIRUBIN mg/dL [facility] TOTAL PROTEIN 7.7 g/dL 6.4-8.2 [facility] ALBUMIN 3.0 g/dL 3.4-5.0 Below low normal [facility] GLOBULIN 4.7 g/dL 2.6-3.8 Above high normal [facility] A/G RATIO 0.6 1.0-5.0 Below low normal [facility] CALCULATION [facility] CALCIUM 9.3 8.5-10.1 [facility] mg/dL [facility] ALTI 192 U/L 16-61 Above high normal [facility] OSMOLALITY 274 273-304 [facility] CALCULATION mos/kg [facility] ID Date Data Source [id number] 06/23/2019 10:25:00 AM EDT [facility] Name Value Range Interpretation Description Data Sup porting Code Source(s) Document(s ) PHOSPHORUS 2.8 mg/dL 2.5-4.9 [facility] ID Date Data Source [id number] 06/23/2019 10:25:00 AM EDT [facility] Name Value Range Interpretation Description Data Sup porting Code Source(s) Document(s ) MAGNESIUM 1.8 mg/dL 1.8-2.4 [facility] ID Date Data Source [id number] 06/22/2019 09:36:00 PM EDT [facility] PATIENT: TITA PULIDO JR STATUS: ADM INACCOUNT #: [id number] ADM UNIT #: [id number] ROOM/BED: Jessica509-01SEX: M ATTEND: MARGUERITE ALVARADO DONDOB : [birth year] AGE: 69 AUTHOR: GREG ROBLES MD PCP: NO DOCTOR Service Date/Time: 06/20/19 2158 HPI.ADMITTED D ATE:06/20/19 Chief Complaint:. [Alcohol withdrawal] History of Present Illness: [69-year-old alcoholic sent in from family due to alcohol intoxication/withdrawal. He is visiting family from [place]. Family was concerned due to his alcohol [...] p erformed: N/A Results. 06/19 0 06/19 1 946 Chemistry Sodium (135 - 145 [...] (0.358 - 3.74 uIU/mL) 0.129 L 06/19 1945 Hematology WBC (4.00 - 10.00 K/uL) 9.90 [...] pH (4.6 - 8.0) 6.5 Ur Specific [place] ( 1.001 - 1.035) >=1.030 Urine Protein [...] resumed by daytime attending. Billing Inpatient CodesInitial/Cons [id number] Electronically Signed by GREG ROBLES MD o n 06/22/19 at 2136 GREG ROBLES MD Electronically Signed 06/22/19 2136 Providers:GREG ROBLES MD Report Entered Date/Time: 06/20/192157Current Report Status: Signed Report #: [id number] PCP ID: NONE ATTENDING ID: LIZA AUTHOR ID: KRISH Name Value Range Interpretation Code Description Data Yue rce(s) Supporting Document(s ) ID Date Data Source [id number] 06/22/2019 05:14:00 PM EDT [facility] PATIENT: TITA PULIDO JR STATUS: ADM INACCOUNT #: [id number] ADM UNIT #: [id number] ROOM/BE D: 509-01SEX: M ATTEND: DEBRA ALVARADO DOOB: [birth year] AGE: 69 AUTHOR: HOMER ALVARADO DO PCP: NO DOCTOR Service Date/Time: 06/22/19 1508 See AddendumSubjective.Patient agrees to drinkin etoh daily. [...] Cont. Hospitalization:alcohol withdrawal. Billing Inpatient CodesFollo w-up 46812 at 1512 Addendum 1: 06/22/19 1714 by [...] 1508Current Report Status: Signed Rep ort #: [id number] PCP ID: NONE ATTENDING ID: LIZA AUTHOR ID: JENNY JORDAN Name Value Range Interpretation Code Description Data Yeu rce(s) Supporting Document(s ) ID Date Data Source [id number] 06/21/2019 09:17:00 AM EDT [facility] DEPART MENT OF DIAGNOSTIC IMAGING Patient Name: TITA PULIDO JR : 1950 Patient Addr.: Todd ENAMORADO , MR#: [id number] [place] [place] [address] Patient Phone #: Dictate Date: 06/22/19 0826 Ordering M.D.: HARLAN DAVIS,CEE ESPARZA ID: DURHI Trans Date: Copies to: ; CC ID: ; Patient Loc: Ledy Lopez509-01 Report #: [id number] Order Number(s): [id number] Site: [facility] Exam Date/Time: 1- Exam: EKG, Routine 12 Lead PROCEDURE: EKG, 12 LEAD ROUTINE COMPARISON: None. Ventricular Rate: 123.00 BPM NC Interval: 180.00 ms QRS Duration: 102.00 ms PRT [place]: 48 31 75 QT/QTC 300/429 CONCLUSION : [...] Supporting Document(s ) ID Date Data Source [id number] 06/22/2019 08:28:00 AM EDT [facility] Name Value Range Interpretation Description Data Sup porting Code Source(s) Document(s ) WBC 7.23 K/uL 4.00-10.[address] RBC 4.22 M/uL 4.63-6.08 Below low normal [facility] HGB 13.1 g/dL 13.7-17.5 Below low normal [facility] HCT 38.6 % 40.1-51.0 Below low normal [facility] MCV 91.5 fL 80.0-96.0 [facility] MCH 31.0 pg 27.0-33.2 [facility] MCHC 33.9 g/dL 32.2-35.5 [facility] RDW 16.3 % 11.6-14.4 Above high normal [facility] PLT 127 K/uL 150-450 Below low normal [facility] MPV 12.0 fL 8.5-11.8 Above high normal [facility] MARTIR% 74.7 % 38.9-69.8 Above high normal [facility] LYM% 16.5 % 21.7-51.7 Below low normal [facility] MONO% 6.9 % 4.7-12.2 [facility] EOS% 0.7 % 0.8-7.0 Below low normal [facility] BASO% 0.8 % 0.1-1.2 [facility] IMMATURE 0.4 % 0.1-0.3 Above high normal [facility] GRANULOCYTE% [facility] The immature granulocyte count is an enu meration ofmetamyelocytes, myelocyte, and promyelocytes present in the[facility] blood sa mple. It does not include band neutrophilforms. ABSOLUTE NEUTROPHIL COUNT 5.40 K/uL 1.46-7.12 [facility] MONO# 0.50 K/uL 0.24-0.86 [facility] EOSIN# 0.05 K/uL 0.04-0.54 [facility] BASO# 0.06 K/uL 0.01-0.08 [facility] IMMATURE GRANULOCYTES# 0.03 K/uL 0.01-0.03 [facility] ID Date Data Source [id number] 06/22/2019 09:56:00 AM EDT [facility] Name Value Range Interpretation Description Data Sup porting Code Source(s) Document(s ) BAND 2.0 % 0.0-20.[address] [facility] NEUTROPHIL [facility] SEGMENTED 64.0 % 38.9-69.[address] [facility] NEUTROPHIL [facility] ABSOLUTE 4.77 K/uL 1.46-7.[address] [facility] NEUTROPHIL [place] COUNT [facility] BASOPHIL 3.0 % 0.1-1.2 Above high [facility] normal [facility] LYMPHOCYTE 22.0 % 21.7-51.7 [facility] MONOCYTE 9 % 4.7-12.2 [facility] PLATELET DECREASED ADEQUATE Below low normal [facility] ESTIMATE [facility] HYPOCHROMIA OCCASIONAL NEGATIVE Abnormal [facility] ([facility]lies to [facility] - results) [place] TARGET CELLS 1+ NEGATIVE [facility]normal [facility] (applies to [facility] - results) [place] TEAR DROP OCCASIONAL NEGATIVE Abnormal [facility] CELLS (applies to [facility] - results) [place] ID Date Data Source [id number] 06/22/2019 08:44:00 AM EDT [facility] Name Value Range Interpretation Description Data Sup porting Code Source(s) Document(s ) GLUCOSE 117 74-106 Above high normal [facility] mg/dL [facility] BUN 13 mg/dL 7-18 [facility] CREATININE 0.539 0.700-1. Below low normal [facility] mg/dL 300 [facility] EST.GLOMERULAR 151.90 >=60.0 [facility] FILTRATION mL/min [facility] EST.GFR 183.80 >=60.0 [facility] mL/min [facility] PHARMACY 71.68 >=60.00 [facility] COCKCROFT-DARA mL/min [place] [facility] BUN/CREAT 24.1 6.0-20.0 Above high normal [facility] RATIO [facility] SODIUM 138 135-[address] [facility] mmol/L [facility] POTASSIUM 3.2 3.5-5.1 Below low normal [facility] mmol/L [facility] CHLORIDE 104 98-107 [facility] mmol/L [facility] CO2 26 21-[address] [facility] mmol/L [facility] ANION GAP 8.0 8-[address] [facility] mmol/L [facility] AST 322 U/L 15-37 Above high normal [facility] ALK PHOS 189 U/L 45-117 Above high normal [facility] TOTAL 1.5 0.2-1.0 Above high normal [facility] BILIRUBIN mg/dL [facility] TOTAL PROTEIN 7.4 g/dL 6.4-8.2 [facility] ALBUMIN 2.9 g/dL 3.4-5.0 Below low normal [facility] GLOBULIN 4.5 g/dL 2.6-3.8 Above high normal [facility] A/G RATIO 0.6 1.0-5.0 Below low normal [facility] CALCULATION [facility] CALCIUM 9.6 8.5-10.1 [facility] mg/dL [facility] ALTI 244 U/L 16-61 Above high normal [facility] OSMOLALITY 277 273-304 [facility] CALCULATION mos/kg [facility] ID Date Data Source [id number] 06/22/2019 08:44:00 AM EDT [facility] Name Value Range Interpretation Description Data Sup porting Code Source(s) Document(s ) PHOSPHORUS 1.7 mg/dL 2.5-4.9 Below low normal [facility] ID Date Data Source [id number] 06/22/2019 08:44:00 AM EDT [facility] Name Value Range Interpretation Description Data Sup porting Code Source(s) Document(s ) MAGNESIUM 1.8 mg/dL 1.8-2.4 [facility] ID Date Data Source [id number] 06/21/2019 03:57:00 PM EDT [facility] PATIENT: TITA PULIDO JR STATUS: ADM INACCOUNT #: [id number] ADM UNIT #: [id number] ROOM/ D: 509-01SEX: M ATTEND: DEBRA ALVARADO DOOB: [birth year] AGE: 69 AUTHOR: HOMER ALVARADO DO PCP: NO DOCTOR Service Date/Time: 06/21/19 1547 Subjective.Seen and examined at [facility]. CIWA score qualified for valium Objective.Height: ft: [...] affect, normal mood, anxious Results.Laboratory Tests 06/20 194 Chemistry Sodium (135 - 145 mmol/L) 136 [...] Cont. Hospitalization: alcohol withdrawal Billing Inpatient CodesFollow-up 42493 Electronically Sign ed by HOMER ALVARADO DO on 06/21/19 at 1556 HOMER ALVARADO DO Electronically Signed 06/21/19 1556 Providers:HOMER ALVARADO DO Report Entered Date/Time: 1547Current Report Status: Signed Report #: [id number] PCP ID: NONE ATTENDING ID: LIZA AUTHOR ID: LIZA Name Value Range Interpretation Code Description Data Yue rce(s) Supporting Document(s ) ID Date Data Source [id number] 06/21/2019 07:03:00 AM EDT [facility] Name Value Range Interpretation Code Description Data Yue rce(s) Supporting Document(s ) WBC 7.35 K/uL 4.00-10.00 [facility] RBC 4.18 M/uL 4.63-6.08 Below low normal [facility] HGB 13.1 g/dL 13.7-17.5 Below low normal [facility] HCT 37.4 % 40.1-51.0 Below low normal [facility] MCV 89.5 fL 80.0-96.0 [facility] MCH 31.3 pg 27.0-33.2 [facility] MCHC 35.0 g/dL 32.2-35.5 [facility] RDW 16.2 % 11.6-14.4 Above high normal [facility] PLT 115 K/uL 150-450 Below low normal [facility] IPF 9.1 % 1.1-6.1 Above high normal [facility] Immature platelet fraction is the ratio of immatureplatelets to the total number of platelets in the patient'speripheral blo od. These immature cells, newly released fromthe bone marrow, may contain increas ed amounts ofcytoplasmic RNA. This count is a measure of thrombopoieticactivity of t he bone marrow. MPV 11.5 fL 8.5-11.8 [facility] ID Date Data Source [id number] 06/21/2019 09:17:00 AM EDT [facility] Name Value Range Interpretation Description Data Sup porting Code Source(s) Document(s ) BAND NEUTROPHIL 7.0 % 0.0-20.0 [facility] SEGMENTED 80.0 % 38.9-69.8 Above high [facility] NEUTROPHIL normal [facility] ABSOLUTE 6.39 K/uL 1.46-7.12 [facility] NEUTROPHIL [facility] LYMPHOCYTE 6.0 % 21.7-51.7 Below low normal [facility] MONOCYTE 6 % 4.7-12.2 [facility] METAMYELOCYTE 1.0 % 0.0-1.0 [facility] GIANT PLATELETS 1+ NEGATIVE [facility] PLATELET DECREASED ADEQUATE Below low normal [facility] ESTIMATE [facility] Rare platelet clumps seen on peripheral blood smear. HYPOCHROMIA OCCASIONAL NEGATIVE Abnormal (applies to [facility] non-numeric results) [facility] ANISOCYTOSIS OCCASIONAL NEGATIVE Abnormal (applies to [facility] non-numeric results) [facility] MICROCYTOSIS OCCASIONAL NEGATIVE Abnormal (applies to [facility] non-numeric results) [facility] MACROCYTOSIS OCCASIONAL NEGATIVE Abnormal (applies to [facility] non-numeric results) [facility] TOXIC VACUOLIZATION PRESENT NEGATIVE Abnormal (applies to [facility] non-numeric results) [facility] ID Date Data Source [id number] 06/21/2019 07:15:00 AM EDT [facility] Name Value Range Interpretation Description Data Sup porting Code Source(s) Document(s ) GLUCOSE 128 74-106 Above high normal [facility] mg/dL [facility] BUN 17 mg/dL 7-18 [facility] CREATININE 0.709 0.700-1. [facility] mg/dL 300 [facility] EST.GLOMERULAR 110.71 >=60.0 [facility] FILTRATION mL/min [facility] EST.GFR 133.96 >=60.0 [facility] mL/min [facility] PHARMACY 71.68 >=60.00 [facility] COCKCROFT-DARA mL/min [place] [facility] BUN/CREAT 23.9 6.0-20.[address] [facility] RATIO [facility] SODIUM 136 135-145 [facility] mmol/L [facility] POTASSIUM 3.3 3.5-5.1 Below low normal [facility] mmol/L [facility] CHLORIDE 101 98-[facility] mmol/L [facility] CO2 22 21-32 [facility] ANION GAP 13.0 8-20 [facility] mmol/L [facility] CALCIUM 8.9 8.5-10.1 [facility] mg/dL [facility] OSMOLALITY 275 273-304 [facility] CALCULATION mos/kg [facility] ID Date Data Source [id number] 06/21/2019 07:15:00 AM EDT [facility] Name Value Range Interpretation Description Data Sup porting Code Source(s) Document(s ) PHOSPHORUS 1.5 mg/dL 2.5-4.9 Below low normal [facility] ID Date Data Source [id number] 06/21/2019 07:15:00 AM EDT [facility] Name Value Range Interpretation Description Data Sup porting Code Source(s) Document(s ) MAGNESIUM 2.1 mg/dL 1.8-2.4 [facility] ID Date Data Source [id number] 06/20/2019 11:49:00 PM EDT [facility] Name Value Range Interpretation Description Data Sup porting Code Source(s) Document(s ) POCT COLOR BROWN YELLOW [facility] POCT CLARITY SLIGHTLY CLEAR [facility] CLOUDY [facility] POCT GLUCOSE NEGATIVE NEGATIVE [facility] mg/dL [facility] POCT BILIRUBIN LARGE NEGATIVE Above high [facility] normal [facility] POCT KETONES >=160 NEGATIVE [facility] mg/dL [facility] POCT SPECIFIC >=1.030 1.001-1.03 [facility] GRAVITY 5 [facility] POCT BLOOD LARGE NEGATIVE [facility] POCT pH 6.5 4.6-8.0 [facility] POCT PROTEIN >=300 NEGATIVE [facility] POCT 2.0 0.2-0.9 [facility] UROBILINOGEN E.U./dL [facility] POCT NITRITE NEGATIVE NEGATIVE [facility] POCT NEGATIVE NEGATIVE [facility] LEUKOCYTES [facility] ID Date Data Source [id number] 06/21/2019 03:14:00 AM EDT [facility] Name Value Range Interpretation Description Data Sup porting Code Source(s) Document(s ) ICTOTEST POSITIVE NEGATIVE [facility] ID Date Data Source [id number] 06/21/2019 12:00:00 AM EDT [facility] Name Value Range Interpretation Description Data Sup porting Code Source(s) Document(s ) WBC IQ 0-5 /HPF 0-5 [facility] RBC IQ 0-3 /HPF 0-3 [facility] BACTERIA IQ TRACE NEGATIVE [facility] /HPF [facility] HYALINE CAST 21-50 NONE SEEN [facility] /LPF [facility] ID Date Data Source [id number] 06/21/2019 12:14:00 AM EDT [facility] Name Value Range Interpretation Description Data Sup porting Code Source(s) Document(s ) AMPHETAMINE NEGATIVE <1000> [facility] SCREEN ng/mL [facility] BARBITURATES NEGATIVE <200> [facility] SCREEN ng/mL [facility] BENZODIAZEPINE NEGATIVE <200> [facility] SCREEN ng/mL [facility] COCAINE NEGATIVE <300> [facility] METABOLITES ng/mL [facility] [address] ECSTASY NEGATIVE <500> [facility] METABOLITE ng/mL [facility] [address] CANNABINOID NEGATIVE <50> [facility] SCREEN ng/mL [facility] METHADONE SCREEN POSITIVE <300> Above high [facility] ng/mL normal [facility] PHENCYCLIDINE NEGATIVE <25> [facility] SCREEN ng/mL [facility] OPIATES SCREEN NEGATIVE <300> [facility] ng/mL [facility] THE SUBMITTED URINE SPECIMEN WAS TESTED AT [...] NG/MLPHENCYCLIDINE 25 NG/ML ID Date Data Source [id number] 06/20/2019 10:06:00 PM EDT [facility] PATIENT: ASHOK CASASTITA STATUS: REG ERACCOUNT #: [id number] SERVICE UNIT #: [id number] LOCAT ION: JessicaERSEX: M PCP PHYS: NO DOCTORDOB: 54 AG E: 69 HARLAN FUNERAL DIRECTOR/EMBALMER/OWNERCEE 06/20/191927:[facility] HP I Current HistoryAllergiesCoded Allergies:No Known Allergies (06/20/19) GeneralChief Complaint ALCOHOL INTOX/ABUSETriage Time 1847Date seen 06/20/19Time seen 1927Hist ory from patient [...] tremors or anxiety. Pt i s from [place]. Portions of this section were scribed by RIGOBERTO DE LA ROSA on 0 at 1928 [facility] ROSPulmonary/CVS Pulmonary/CVS denie s [...] out Pt signed out to LUCINDA Powell ssumed Pt yes, follow up labs, f/u radiologic stud ies, follow up disposition Portions of this section were scribed by RIGOBERTO DE LA ROSA on 06/20/19 at 1938 GASTON JOHNSTON 06/20/191954:Last lab resultsOther Imaging DEPARTMENT OF DIAGNOSTIC IMAGING Patient Name: TITA SANDY JR : 2Patient Addr.: [address], MR#: [id number] EMI,N Y [id number] Phone #: Dictate Date: 06/20/191952Daryn Vora: BRIONNA GONZALES NP ID: GABRIEL Ledesma Mane e:Copies to: CEE CLAROS NP;CC ID: [Patient Loc: Bradort #: [id number] Number(s): [id number] Site: [facility] Date/Time: 06/20/191940 Exam: CHEST 1 VIEW [...] Medical Decision/Pro wong/CC Progress/ReassessmentTime 5CommentsReceived signout from FUNERAL DIRECTOR/EMBALMER/OWNER [facility]. HPI:69 y/o M w/ PMHx of ETOH abuse c/o generalized weakness w/ associated chill l and shakiness secondary to alcohol withdraw. Pt denies fever, V, siezures, abd pain orany other acute complaints at this time. Pt states that his last ETOH drink was last night. Pt is from [place] and is visiting family in the area. [...] 06/20/19Hosp or Disch Decision Tm 2129Ad Henrietta ESPARZA,BALIKADiscussion with attending case discussed fully, aware-ED workup/fi ndings, agree w/management/plan, accept transfer of careDisposition [facility] HOSPITALIZEDClinical ImpressionPrimary Impression: Alcohol withdrawalQualifiers : Complication of substance-induced condition: with unspecified complication Qualified Code: F10.239 - Alcohol dependence with withdrawal, unspecifiedCondition Fa ir Authenticated by GASTON MITCHELL on 06/20/19 at 2204 at 1952 HARLAN DAVIS,CEE almeida Signed 06/20/191951 Providers:HARLAN DAVIS,JC ESPARZA, JOSE JANE,Holli Entered Date/Time: 06/20/191927Current Report S tatus: Signed Report #: [id number] PCP ID: NONE ATTENDING ID: MONROEKristiLEILANI AUTHOR ID: GABRIEL Name Value Range Interpretation Code Description Data Yue rce(s) Supporting Document(s ) ID Date Data Source [id number] 06/20/2019 09:56:00 PM EDT [facility] Name Value Range Interpretation Code Description Data Yue rce(s) Supporting Document(s ) AMMONIA 22 umol/L 11-32 [facility] ID Date Data Source [id number] 06/20/2019 09:52:00 PM EDT [facility] Name Value Range Interpretation Code Description Data Yue rce(s) Supporting Document(s ) PT 10.5 sec 10.2-13.2 [facility] INR 0.91 [facility] INR IS DESIGNED TO MONITOR THOSE PATIENT S STABILIZED ONORAL ANTICOAGULANT THERAPY. IT IS NOT SUITED FOR PRE-OPSCREENING OR FOR EVALUATING CONDITIONS SUCH LIVERDISEASE.THERAPEUTIC RANGE:PATIENTS ON ORAL ANTICOAGULANTS 2.00 - 3.00PATIENTS WITH PROSTHETIC HEART VALVES 2.50 - 3.5 0 ID Date Data Source [id number] 06/20/2019 09:52:00 PM EDT [facility] Name Value Range Interpretation Code Description Data Yue rce(s) Supporting Document(s ) APTT 28.1 sec 26.2-38.2 [facility] ID Date Data Source [id number] 06/20/2019 07:42:00 PM EDT [facility] DEPART MENT OF DIAGNOSTIC IMAGING Patient Name: TITA PULIDO JR : 1950 Patient Addr.: Todd ENAMORADO DR, MR#: [id number] [place] [id number] Patient Phone #: Dictate Date: 06/20/191952 Ordering M.D.: CEE CLAROS NP, MD ID: DURHI Trans Date: Copies to: CEE CLAROS NP; CC ID: ; Patient Loc: [place] Report #: [id number] Order Number(s): [id number] Site: [facility] Exam Date/Time: 06/19 Exam: CHEST 1 VIEW [...] Supporting Document(s ) ID Date Data Source [id number] 06/20/2019 08:28:00 PM EDT [facility] Name Value Range Interpretation Description Data Sup porting Code Source(s) Document(s ) TSH 3RD 0.129 0.358-3. Below low normal [facility] GENERATION uIU/mL 74 [facility] ID Date Data Source [id number] 06/20/2019 08:09:00 PM EDT [facility] Name Value Range Interpretation Code Description Data Yue rce(s) Supporting Document(s ) WBC 9.90 K/uL 4.00-10.00 [facility] RBC 4.53 M/uL 4.63-6.08 Below low normal [facility] HGB 14.1 g/dL 13.7-17.5 [facility] HCT 40.9 % 40.1-51.0 [facility] MCV 90.3 fL 80.0-96.0 [facility] MCH 31.1 pg 27.0-33.2 [facility] MCHC 34.5 g/dL 32.2-35.5 [facility] RDW 16.0 % 11.6-14.4 Above high normal [facility] PLT 130 K/uL 150-450 Below low normal [facility] IPF 9.4 % 1.1-6.1 Above high normal [facility] Immature platelet fraction is the ratio of immatureplatelets to the total number of platelets in the patient'speripheral blo od. These immature cells, newly released fromthe bone marrow, may contain increas ed amounts ofcytoplasmic RNA. This count is a measure of thrombopoieticactivity of t he bone marrow. MPV 11.3 fL 8.5-11.8 [facility] ID Date Data Source [id number] 06/20/2019 08:21:00 PM EDT [facility] Name Value Range Interpretation Description Data Sup porting Code Source(s) Document(s ) GLUCOSE 173 74-106 Above high normal [facility] mg/dL [facility] BUN 19 mg/dL 7-18 Above high normal [facility] CREATININE 0.820 0.700-1. [facility] mg/dL 300 [facility] EST.GLOMERULAR 93.60 >=60.0 [facility] FILTRATION mL/min [facility] EST.GFR 113.26 >=60.0 [facility] mL/min [facility] PHARMACY 71.68 >=60.00 [facility] COCKCROFT-DARA mL/min [facility] BUN/CREAT 23.1 6.0-20.0 Above high normal [facility] RATIO [facility] SODIUM 134 135-145 Below low normal [facility] mmol/L [facility] POTASSIUM 3.7 3.5-5.1 [facility] mmol/L [facility] CHLORIDE 97 98-107 Below low normal [facility] mmol/L [facility] CO2 18 21-32 Below low normal [facility] mmol/L [facility] ANION GAP 19.0 8-20 [facility] mmol/L [facility] AST 869 U/L 15-37 Above high normal [facility] ALK PHOS 237 U/L 45-117 Above high normal [facility] TOTAL 2.1 0.2-1.0 Above high normal [facility] BILIRUBIN mg/dL [facility] TOTAL PROTEIN 8.4 g/dL 6.4-8.2 Above high normal [facility] ALBUMIN 3.4 g/dL 3.4-5.0 [facility] GLOBULIN 5.0 g/dL 2.6-3.8 Above high normal [facility] A/G RATIO 0.7 1.0-5.0 Below low normal [facility] CALCULATION [facility] CALCIUM 9.4 8.5-10.1 [facility] mg/dL [facility] ALTI 409 U/L 16-61 Above high normal [facility] OSMOLALITY 275 273-304 [facility] CALCULATION mos/kg [facility] ID Date Data Source [id number] 06/20/2019 08:21:00 PM EDT [facility] Name Value Range Interpretation Code Description Data Yue rce(s) Supporting Document(s ) ALCOHOL-E 235 mg/dL 0-300 [facility] CLINICALLY TOXIC AT > 400 MG/DL. ID Date Data Source [id number] 06/20/2019 08:19:00 PM EDT [facility] Name Value Range Interpretation Description Data Sup porting Code Source(s) Document(s ) ACETAMINOPHEN < 2.0 10.0-30. Below low normal [facility] ug/mL 0 [facility] ID Date Data Source [id number] 06/20/2019 08:19:00 PM EDT [facility] Name Value Range Interpretation Description Data Sup porting Code Source(s) Document(s ) SALICYLATE < 1.7 2.8-20.[address] [facility] mg/dL [facility] ID Date Data Source [id number] 06/20/2019 08:19:00 PM EDT [facility] Name Value Range Interpretation Description Data Sup porting Code Source(s) Document(s ) MANUAL NEGATIVE NEGATIVE [facility] SERUM [facility] ID Date Data Source Liver 01/11/2019 06:35:00 AM EST Health System Profile.[id number] Name Value Range Interpretation Description Data Sup [...] s"> (3.5-5.0 G/DL)</content> ID Date Data Source HematologyRou.[id number] 01/11/2019 06:35:00 AM MELISSA Dumont [facility] 0500 Name Value Range Interpretation Description Data [...] (< 1 %)</content> ID Date Data Source GFR(Creatinine).[id number] 01/11/2019 06:35:00 AM [facility] 0-0500 Name Value Range Interpretation Code Description Data Yue rce(s) Supporting Document(s ) UNK > 60 <content [facility] styleCode="Bold"> Medical Cent er EGFR </content>103 GFR<content styleCode="Italic s"> (> 60 GFR)</content> ID Date Data Source CHMROUTINECCDA.[id number] 01/11/2019 06:35:00 AM [facility] -0500 Name Value Range Interpretation Description Data Sup porting Code Source(s) Document(s ) UNK >= 1.0 <content [facility] styleCode="[facility] Con d">AG Ratio Medical </content>1.2 Center <content styleCode="Katie lics"> (>= 1.0 )</content> Phosphate 2.5-4.5 <content [facility] [Mass/volume] styleCode="Reuben Con in Serum or d">Phosphorus Medical Plasma </content>4.2 Center MG/DL<content styleCode="Katie lics"> (2.5-4.5 MG/DL)</conten t> UNK 2.3-3.5 <content [facility] styleCode="[facility] Con d">Globulin Medical </content>3.0 Center G/DL<content styleCode="Katie lics"> (2.3-3.5 G/DL)</content > Magnesium 1.6-2.3 <content [facility] [Mass/volume] styleCode="Reuben Con in Serum or d">Magnesium Medical Plasma </content>1.6 Center MG/DL<content styleCode="Katie lics"> (1.6-2.3 MG/DL)</conten t> Protein 6.3-8.2 <content [facility] [Mass/volume] styleCode="Reuben Con in Serum or d">Total Medical Plasma Protein Center </content>6.6 G/DL<content styleCode="Katie lics"> (6.3-8.2 G/DL)</content > ID Date Data Source [facility].[id number] 01/11/2019 06:35:00 AM EST [facility] Name Value Range Interpretation Description Data Sup porting Code Source(s) Document(s ) Sodium 137-145 <content [facility] [Moles/volume] in styleCode="Bold"> [facility] Serum or Plasma Sodium Medical </content>137 Center MEQ/L<content styleCode="Italic s"> (137-145 MEQ/L)</content> Potassium 3.5-5.3 <content [facility] [Moles/volume] in styleCode="Bold"> [facility] Serum or Plasma Potassium Medical </content>4.0 Center [...] IU/L)</content> Alkaline 38-126 <content [facility] phosphatase styleCode="Bold"> [facility] [Enzymatic Alkaline Medical activity/volume] Phosphatase (ALP) Cente [...] Data Source Liver 01/10/2019 06:20:00 AM EST Health System Profile.[id number] Name Value Range Interpretation Description Data Sup [...] s"> (38-126 IU/L)</content> ID Date Data Source HematologyRou.[id number] 01/10/2019 06:20:00 AM MELISSA Dumont nt [facility] 0500 Name Value Range Interpretation Description Data [...] (< 1 %)</content> ID Date Data Source GFR(Creatinine).[id number] 01/10/2019 06:20:00 AM EST Tim [facility] 0-0500 Name Value Range Interpretation Code Description Data Yue rce(s) Supporting Document(s ) UNK > 60 <content [facility] styleCode="Bold"> Medical Cent er EGFR </content>103 GFR<content styleCode="Italic s"> (> 60 GFR)</content> ID Date Data Source Coagulation 01/10/2019 06:20:00 AM [facility] ical Center Rout.[id number] EST Name Value Range Interpretation Description Data Sup porting Code Source(s) Document(s ) INR in 0.80-1.2 <content [facility] Platelet poor 0 styleCode="Bold" Con plasma by >INR Medical Coagulation </content>0.97 Center assay #<content styleCode="Itali cs"> (0.80-1.20 #)</content> aPTT in 25.1-36. <content [facility] Platelet poor 5 styleCode="Bold" [facility] plasma by >Partial Medical Coagulation Thromboplastin Center assay Time </content>28.4 SEC<content styleCode="Itali cs"> (25.1-36.5 SEC)</content> UNK 9.0-13.0 <content [facility] styleCode="Bold" Con >Protime Medical </content>10.8 Center SEC<content styleCode="Itali cs"> (9.0-13.0 SEC)</content> ID Date Data Source CHMROUTINECCDA.[id number] 01/10/2019 06:20:00 AM MELISSA Dumont nt [facility] -0500 Name Value Range Interpretation Description Data Sup porting Code Source(s) Document(s ) UNK 2.3-3.5 <content [facility] styleCode="Reuben Con d">Globulin Medical </content>3.2 Center G/DL<content styleCode="Katie lics"> (2.3-3.5 G/DL)</content > Lipase 23-300 Above high normal <content [facility] [Enzymatic styleCode="Reuben Alvarezs activity/volu d">Lipase Medical me] in Serum </content>458 Center or Plasma IU/L H<content styleCode="Katie lics"> (23-300 IU/L)</content > UNK 30-110 <content [facility] styleCode="[facility] Con d">Amylase Medical </content>50 Center IU/L<content styleCode="Katie lics"> (30-110 IU/L)</content > UNK >= 1.0 <content [facility] styleCode="[facility] Con d">AG Ratio Medical </content>1.1 Center <content styleCode="Katie lics"> (>= 1.0 )</content> Phosphate 2.5-4.5 <content [facility] [Mass/volume] styleCode="Reuben Con in Serum or d">Phosphorus Medical Plasma </content>4.1 Center MG/DL<content styleCode="Katie lics"> (2.5-4.5 MG/DL)</conten t> Magnesium 1.6-2.3 Below low normal <content [facility] [Mass/volume] styleCode="Reuben Andujar in Serum or d">Magnesium Medical Plasma </content>1.4 Center MG/DL L<content styleCode="Katie lics"> (1.6-2.3 MG/DL)</conten t> Protein 6.3-8.2 <content [facility] [Mass/volume] styleCode="Reuben Andujar in Serum or d">Total Medical Plasma Protein Center </content>6.8 G/DL<content styleCode="Katie lics"> (6.3-8.2 G/DL)</content > ID Date Data Source [facility].[id number] 01/10/2019 06:20:00 AM EST [facility] Name Value Range Interpretation Description Data Sup porting Code Source(s) Document(s ) Sodium 137-145 <content [facility] [Moles/volume] in styleCode="Bold"> [facility] Serum or Plasma Sodium Medical </content>138 Center MEQ/L<content styleCode="Italic s"> (137-145 MEQ/L)</content> Chloride 98-107 <content [facility] [Moles/volume] in styleCode="Bold"> Flex [facility] Serum or Plasma Chloride Medical </content>100 Center MEQ/L<content styleCode="Italic s"> (98-107 MEQ/L)</content> Carbon dioxide, 22-30 Above high <content Saint total normal styleCode="Bold"> Con [Moles/volume] in Carbon Dioxide Medical Serum or Plasma </content>31 Center MEQ/L H<content styleCode="Italic s"> (22-30 MEQ/L)</content> Potassium 3.5-5.3 Below low <content [facility] [Moles/volume] in normal styleCode="Bold"> Flex [facility] Serum or Plasma Potassium Medical </content>3.3 Center [...] s"> (3.5-5.0 G/DL)</content> ID Date Data Source Urinalysis.[id number] 01/08/2019 11:10:00 PM MELISSA Dumont [facility] 0 Name Value Range Interpretation Description Data Sup porting Code Source(s) Document(s ) Color of Urine YELLOW <content Saint styleCode="[facility] d">Color, Medical Urine Center </content>YELL OW <content styleCode="Katie lics"> (YELLOW )</content> Glucose NEGATIVE <content [facility] [Mass/volume] styleCode="Reuben Andujar in Urine by d">Urine Medical Test strip Glucose Center </content>NEGA TIVE MG/DL<content styleCode="Katie lics"> (NEGATIVE MG/DL)</conten t> UNK CLEAR <content Saint styleCode="[facility] d">Urine Medical Clarity Center </content>CLARK R <content [...] by Test d">Urine Medical strip Specific Center [place] </content>1.02 0 <content styleCode="Katie lics"> (1.015-1.025 )</content> [...] lics"> (NEGATIVE )</content> ID Date Data Source CHMROUTINECCDA.[id number] 01/08/2019 11:10:00 PM EST Tim [facility] -0500 Name Value Range Interpretation Description Data Sup porting Code Source(s) Document(s ) Cannabinoids <content Saint [Presence] in styleCode="Reuben Con Urine by Screen d">Cannabinoid Medical method >50 ng/mL s Center </content>PRES UMPTIVE POSITIVE NG/ML (Reference Range: not available)<br/ > ID Date Data Source Liver 01/08/2019 01:23:00 PM EST Health System Profile.[id number] Name Value Range Interpretation Description Data Sup [...] s"> (0.0-0.3 MG/DL)</content> ID Date Data Source HematologyRou.[id number] 01/08/2019 01:23:00 PM MELISSA Dumont [facility] 0500 Name Value Range Interpretation Description Data [...] ics"> (8.0-11.0 FL)</content> ID Date Data Source GFR(Creatinine).[id number] 01/08/2019 01:23:00 PM MELISSA Dumont [facility] 0-0500 Name Value Range Interpretation Code Description Data Yue rce(s) Supporting Document(s ) UNK > 60 <content [facility] styleCode="Bold"> Medical Cent er EGFR </content>103 GFR<content styleCode="Italic s"> (> 60 GFR)</content> ID Date Data Source [facility].[id number] 01/08/2019 01:23:00 PM EST [facility] Name Value Range Interpretation Description Data Sup porting Code Source(s) Document(s ) Sodium 137-145 <content Saint [Moles/volume] in styleCode="Bold"> Flex phs Serum or Plasma Sodium Medical </content>140 Center MEQ/L<content styleCode="Italic s"> (137-145 MEQ/L)</content> Potassium 3.5-5.3 <content Saint [Moles/volume] in styleCode="Bold"> Flex phs Serum or Plasma Potassium Medical </content>3.8 Center [...] Data Source Liver 01/03/2019 06:52:00 AM EDT Health System Profile.[id number] Name Value Range Interpretation Description Data Sup [...] IU/L)</content> Alkaline 38-126 <content [facility] phosphatase styleCode="Bold"> [facility] [Enzymatic Alkaline Medical activity/volume] Phosphatase (ALP) Cente [...] s"> (0.2-1.3 MG/DL)</content> ID Date Data Source HematologyRou.[id number] 01/03/2019 06:52:00 AM EDT Tim [facility] 0400 Name Value Range Interpretation Description Data Sup porting Code Source(s) Document(s ) Leukocytes 4.4-11.0 <content Saint [#/volume] in styleCode="Bold [facility] Blood by ">White Blood Medical Automated count [...] (0.0 KCUMM)</content > ID Date Data Source GFR(Creatinine).[id number] 01/03/2019 06:52:00 AM EDT [facility] 0-0400 Name Value Range Interpretation Code Description Data Yue rce(s) Supporting Document(s ) UNK > 60 <content [facility] styleCode="Bold"> Medical Cent er EGFR </content>120 GFR<content styleCode="Italic s"> (> 60 GFR)</content> ID Date Data Source MIRIAMMROUTTHOMASCCDA.[id number] 01/03/2019 06:52:00 AM EDT [facility] -0400 Name Value Range Interpretation Description Data [...] (6.3-8.2 G/DL)</content > ID Date Data Source [facility].[id number] 01/03/2019 06:52:00 AM EDT [facility] Center Name Value Range Interpretation Description Data Sup porting Code Source(s) Document(s ) Sodium 137-145 Below low <content Saint [Moles/volume] in normal styleCode="Bold"> [facility] Serum or Plasma Sodium Medical </content>136 Center MEQ/L L<content styleCode="Italic s"> (137-145 MEQ/L)</content> Creatinine 0.5-1.3 <content Saint [Mass/volume] in styleCode="Bold"> [facility] Serum or Plasma Creatinine Medical </content>0.7 Center MG/DL<content styleCode="Italic s"> (0.5-1.3 MG/DL)</content> Potassium 3.5-5.3 <content [facility] [Moles/volume] in styleCode="Bold"> [facility] Serum or Plasma Potassium Medical </content>4.6 Center MEQ/L<content styleCode="Italic s"> (3.5-5.3 MEQ/L)</content> Chloride 98-107 <content Saint [Moles/volume] in styleCode="Bold"> [facility] Serum or Plasma Chloride Medical </content>105 Center [...] Data Source Liver 01/02/2019 05:10:00 AM EDT Health System Profile.[id number] Name Value Range Interpretation Description Data Sup [...] s"> (3.5-5.0 G/DL)</content> ID Date Data Source HematologyRou.[id number] 01/02/2019 05:10:00 AM [facility] Name Value Range Interpretation Description [...] (< 1 %)</content> ID Date Data Source GFR(Creatinine).[id number] 01/02/2019 05:10:00 AM EDT [facility] 0-0400 Name Value Range Interpretation Code Description Data Yue rce(s) Supporting Document(s ) UNK > 60 <content [facility] styleCode="Bold"> Medical Cent er EGFR </content>120 GFR<content styleCode="Italic s"> (> 60 GFR)</content> ID Date Data Source CHMROUTINECCDA.[id number] 01/02/2019 05:10:00 AM EDT [facility] -0400 Name Value Range Interpretation Description Data [...] (1.6-2.3 MG/DL)</conten t> ID Date Data Source [facility].[id number] 01/02/2019 05:10:00 AM EDT [facility] Name Value Range Interpretation Description Data Sup porting Code Source(s) Document(s ) Chloride 98-107 <content Saint [Moles/volume] in styleCode="Bold"> [facility] Serum or Plasma Chloride Medical </content>103 Center MEQ/L<content styleCode="Italic s"> (98-107 MEQ/L)</content> Sodium 137-145 Below low <content Saint [Moles/volume] in normal styleCode="Bold"> [facility] Serum or Plasma Sodium Medical </content>136 Center [...] s"> (0.2-1.3 MG/DL)</content> ID Date Data Source LIPID.[id number] 01/01/2019 05:00:00 AM EDT [facility] Name Value Range Interpretation Description Data Sup porting Code Source(s) Document(s ) Triglyceride < 150 <content Saint [Mass/volume] in styleCode="Reuben Alvarezs Serum or Plasma d">Triglycerid Medical es Center </content>87 MG/DL<content styleCode="Katie lics"> (< 150 MG/DL)</conten t> Cholesterol -<200 Above high normal <content Saint [Mass/volume] in styleCode="Reuben Alvarezs Serum or Plasma d">Cholesterol Medical </content>251 Center MG/DL H<content styleCode="Katie lics"> (-<200 MG/DL)</conten t> UNK > 60 <content Saint styleCode="Reuben Andujar d">HDL- Medical Cholesterol Center </content>118 MG/DL<content styleCode="Katie lics"> (> 60 MG/DL)</conten t> UNK < 100 Above high normal <content [facility] styleCode="Reuben Con d">LDL-Cholest Medical naa Center </content>116 MG/DL H<content styleCode="Katie lics"> (< 100 MG/DL)</conten t> ID Date Data Source Coagulation 01/01/2019 05:00:00 AM [facility] ical Center Rout.[id number] EDT Name Value Range Interpretation Description Data Sup porting Code Source(s) Document(s ) UNK 9.0-13.0 <content Saint styleCode="Bold" Con >Protime Medical </content>11.0 Center SEC<content styleCode="Itali cs"> (9.0-13.0 SEC)</content> INR in 0.80-1.2 <content Saint Platelet poor 0 styleCode="Bold" Con plasma by >INR Medical Coagulation </content>0.99 Center assay #<content styleCode="Itali cs"> (0.80-1.20 #)</content> aPTT in 25.1-36. <content [facility] Platelet poor 5 styleCode="Bold" Con plasma by >Partial Medical Coagulation Thromboplastin Center assay Time </content>28.3 SEC<content styleCode="Itali cs"> (25.1-36.5 SEC)</content> ID Date Data Source [employer].[id number] 01/01/2019 05:00:00 AM EDT Tim [facility] -0400 Name Value Range Interpretation Description Data Sup porting Code Source(s) Document(s ) Creatine 55-170 <content [facility] kinase styleCode="Bold Medical [Enzymatic ">CK Center activity/vol </content>123 ume] in IU/L<content Serum or styleCode="Ital Plasma ics"> (55-170 IU/L)</content> ID Date Data Source Liver 01/01/2019 05:00:00 AM EDT Health System Profile.[id number] Name Value Range Interpretation Description Data Sup [...] s"> (0.2-1.3 MG/DL)</content> ID Date Data Source HematologyRou.[id number] 01/01/2019 05:00:00 AM EDT Tim nt [facility] 0400 Name Value Range Interpretation Description Data Sup porting Code Source(s) Document(s ) Erythrocytes 4.4-5.9 Below low normal <content Saint [#/volume] in styleCode="Bold [facility] Blood by ">Red Blood Medical Automated count [...] (0-0.1 KCUMM)</content > ID Date Data Source GFR(Creatinine).[id number] 01/01/2019 05:00:00 AM EDT [facility] 0-0400 Name Value Range Interpretation Code Description Data Yue rce(s) Supporting Document(s ) UNK > 60 <content [facility] styleCode="Bold"> Medical Cent er EGFR </content>143 GFR<content styleCode="Italic s"> (> 60 GFR)</content> ID Date Data Source CHMROUTINECCDA.[id number] 01/01/2019 05:00:00 AM EDT [facility] -0400 Name Value Range Interpretation Description Data [...] (23-300 IU/L)</content > ID Date Data Source [facility].[id number] 01/01/2019 05:00:00 AM EDT [facility] Center Name Value Range Interpretation Description Data Sup porting Code Source(s) Document(s ) Sodium 137-145 <content Saint [Moles/volume] in styleCode="Bold"> Flex phs Serum or Plasma Sodium Medical </content>137 Center MEQ/L<content styleCode="Italic s"> (137-145 MEQ/L)</content> Potassium 3.5-5.3 Below low <content Saint [Moles/volume] in normal styleCode="Bold"> Flex [facility] Serum or Plasma Potassium Medical </content>3.4 Center [...] (3.5-5.0 G/DL)</content> Alkaline 38-126 Above high <content phosphatase normal styleCode="Bold"> Con [Enzymatic Alkaline Medical activity/volume] Phosphatase (ALP) Cente r in Serum or Plasma </content>133 IU/L H<content styleCode="Italic s"> (38-126 IU/L)</content> ID Date Data Source GFR(Creatinine).[id number] 12/31/2018 09:26:00 PM EDT [facility] 0-0400 Name Value Range Interpretation Code Description Data Yue rce(s) Supporting Document(s ) UNK > 60 <content [facility] styleCode="Bold"> Medical Cent er EGFR </content>120 GFR<content styleCode="Italic s"> (> 60 GFR)</content> ID Date Data Source [facility].[id number] 12/31/2018 09:26:00 PM EDT [facility] Name Value Range Interpretation Description Data [...] Carbon 22-30 <content Saint dioxide, total styleCode="Reuben Alvarezs [Moles/volume] d">Carbon Medical in Serum or Dioxide Center Plasma </content>28 MEQ/L<content styleCode="Katie lics"> (22-30 MEQ/L)</conten t> Calcium 8.4-10.2 <content Saint [Mass/volume] styleCode="Reuben Andujar in Serum or d">Calcium Medical Plasma </content>10.0 Center MG/DL<content styleCode="Katie lics"> (8.4-10.2 MG/DL)</conten t> UNK > 60 <content Saint styleCode="Reuben Andujar d">EGFR Medical </content>120 Center GFR<content styleCode="Katie lics"> (> 60 GFR)</content> Glucose 74-106 <content Saint [Mass/volume] styleCode="Reuben Andujar in Serum or d">Glucose Medical Plasma </content>101 Center MG/DL<content styleCode="Katie lics"> (74-106 MG/DL)</conten t> ID Date Data Source CardiacMarkers.[id number] 12/31/2018 05:15:00 AM EDT Tim [facility] -0400 Name Value Range Interpretation Description Data Sup porting Code Source(s) Document(s ) Creatine 55-170 Above high normal <content Saint Alvarez s kinase styleCode="Bold Medical [Enzymatic ">CK Center activity/vol </content>272 ume] in IU/L H<content Serum or styleCode="Ital Plasma ics"> (55-170 IU/L)</content> ID Date Data Source Liver 12/31/2018 05:15:00 AM EDT [facility] Profile.[id number] Name Value Range Interpretation Description Data Sup [...] Above high <content Saint phosphatase normal styleCode="Bold"> Ocn [Enzymatic Alkaline Medical activity/volume] Phosphatase (ALP) Cente [...] s"> (3.5-5.0 G/DL)</content> ID Date Data Source HematologyRou.[id number] 12/31/2018 05:15:00 AM EDT Tim [facility] 0400 Name Value Range Interpretation [...] Con Fraction] of ">Hematocrit Medical Blood by </content>37.6 [...] ics"> (0 /100)</content> UNK < 1 <content styleCode="Bold Con ">Immature Medical Granulocyte Center Ratio </content>0.2 %<content styleCode="Ital ics"> (< 1 %)</content> ID Date Data Source GFR(Creatinine).[id number] 12/31/2018 05:15:00 AM EDT [facility] 0-0400 Name Value Range Interpretation Code Description Data Yue rce(s) Supporting Document(s ) UNK > 60 <content [facility] styleCode="Bold"> Medical Cent er EGFR </content>143 GFR<content styleCode="Italic s"> (> 60 GFR)</content> ID Date Data Source MROUTTHOMASCCCAL.[id number] 12/31/2018 05:15:00 AM EDT [facility] -0400 Name Value Range Interpretation Description Data [...] (23-300 IU/L)</content > ID Date Data Source [facility].[id number] 12/31/2018 05:15:00 AM EDT [facility] Name Value Range Interpretation [...] Date Data Source Coagulation 12/31/2018 05:15:00 AM [facility] Center Rout.[id number] EDT Name Value Range Interpretation Description Data [...] Data Source Liver 12/30/2018 04:26:00 PM EDT [facility] System Profile.[id number] Name Value Range Interpretation Description Data Sup [...] s"> (0.2-1.3 MG/DL)</content> ID Date Data Source HematologyRou.[id number] 12/30/2018 04:26:00 PM EDT Tim nt [facility] 0400 Name Value Range Interpretation Description Data Sup porting Code Source(s) Document(s ) Leukocytes 4.4-11.0 <content Saint [#/volume] in styleCode="Bold [facility] Blood by ">White Blood Medical Automated count [...] (< 1 %)</content> ID Date Data Source MROUTINECCDA.[id number] 12/30/2018 04:26:00 PM EDT Tim [facility] -0400 Name Value Range Interpretation [...] Date Data Source Coagulation 12/30/2018 04:26:00 PM [facility].[id number] EDT Name Value Range Interpretation Description Data [...] cs"> (0.80-1.20 #)</content> ID Date Data Source CardiacMarkers.[id number] 12/30/2018 04:26:00 PM EDT [facility] -0400 Name Value Range Interpretation Description Data Sup porting Code Source(s) Document(s ) Troponin < 0.034 <content Saint I.cardiac styleCode="Bold Con [Mass/volume ">Troponin I Medical ] in Serum </content>< Center or Plasma 0.012 NG/ML<content styleCode="Ital ics"> (< 0.034 NG/ML)</content > ID Date Data Source Stools.[id number] 12/30/2018 09:35:00 AM EDT Health System Name Value Range Interpretation Code Description Data Yue rce(s) Supporting Document(s ) UNK NEGATIVE <content Saint Con styleCode="Bold" Medical Cente r >Guaiac, Occult Blood </content>NEGATI VE <content styleCode="Itali cs"> (NEGATIVE )</content> ID Date Data Source CHMROUTINECCDA.[id number] 12/29/2018 11:57:00 PM EDT [facility] -0400 Name Value Range Interpretation Code Description Data Yue rce(s) Supporting Document(s ) UNK 30-110 <content Saint Con styleCode="Bold"> Medical Cent er Amylase </content>61 IU/L<content styleCode="Italic s"> (30-110 IU/L)</content> ID Date Data Source [id number] 12/29/2018 11:56:00 PM EDT [facility] -0400 Name Value Range Interpretation Description Data Sup porting Code Source(s) Document(s ) Lipase 23-300 Above high normal <content [place] s [Enzymatic styleCode="Bold Medical activity/vo ">Lipase Center lume] in </content>815 Serum or IU/L H<content Plasma styleCode="Ital ics"> (23-300 IU/L)</content> ID Date Data Source CardiacMarkers.[id number] 12/29/2018 11:55:00 PM EDT [facility] -0400 Name Value Range Interpretation Description Data Sup porting Code Source(s) Document(s ) Troponin < 0.034 <content Saint I.cardiac styleCode="Bold Con [Mass/volume ">Troponin I Medical ] in Serum </content>< Center or Plasma 0.012 NG/ML<content styleCode="Ital ics"> (< 0.034 NG/ML)</content > ID Date Data Source [facility][id number] 12/29/2018 05:15:00 PM EDT [facility] -0400 Name Value Range Interpretation Description Data Sup porting Code Source(s) Document(s ) Cannabinoids <content Saint [Presence] in styleCode="Reuben [facility] Urine by Screen d">Cannabinoid Medical method >50 ng/mL s Center </content>NEGA TIVE NG/ML (Reference Range: not available)<br/ > ID Date Data Source Urinalysis.[id number] 12/29/2018 05:15:00 PM EDT [facility] 0 Name Value Range Interpretation Description Data Sup porting Code Source(s) Document(s ) Color of Urine YELLOW <content Saint styleCode="Reuben Con d">Color, Medical Urine Center </content>YELL OW <content styleCode="Katie lics"> (YELLOW )</content> UNK CLEAR <content Saint styleCode="Reuben Con [...] by Test d">Urine Medical strip Specific Center [place] </content>1.02 5 <content styleCode="Katie lics"> (1.015-1.025 )</content> [...] UNK NONE SEEN <content Saint styleCode="Reuben Alvarezs d">Epithelial Medical Cell Center </content>2-5 HPF<content styleCode="Katie lics"> (NONE SEEN HPF)</content> ID Date Data Source Liver 12/29/2018 04:45:00 PM EDT [facility] Profile.[id number] Name Value Range Interpretation Description Data Sup [...] (0.2-1.3 MG/DL)</content> UNK 0.0-0.3 <content Saint styleCode="Bold"> Cno Bilirubin, Direct Medical </content>< 0.2 Center MG/DL<content styleCode="Italic s"> (0.0-0.3 MG/DL)</content> Albumin 3.5-5.0 <content Saint [Mass/volume] in styleCode="Bold"> Clint hs Serum or Plasma Albumin Medical </content>4.3 Center G/DL<content styleCode="Italic s"> (3.5-5.0 G/DL)</content> ID Date Data Source HematologyRou.[id number] 12/29/2018 04:45:00 PM EDT Tim nt [facility] 0400 Name Value Range Interpretation Description Data [...] ics"> (0 /100)</content> ID Date Data Source GFR(Creatinine).[id number] 12/29/2018 04:45:00 PM EDT [facility] 0-0400 Name Value Range Interpretation Code Description Data Yue rce(s) Supporting Document(s ) UNK > 60 <content [facility] styleCode="Bold"> Medical Cent er EGFR </content>143 GFR<content styleCode="Italic s"> (> 60 GFR)</content> ID Date Data Source MROUTINECCDA.[id number] 12/29/2018 04:45:00 PM EDT [facility] -0400 Name Value Range Interpretation Description Data Sup porting Code Source(s) Document(s ) Natriuretic < 125 <content Saint peptide.B styleCode="[facility] prohormone d">NT Pro BNP Medical N-Terminal </content>22.9 Center [Mass/volume] PG/ML<content in Serum or styleCode="Katie Plasma lics"> (< 125 PG/ML)</conten t> ID Date Data Source [facility].[id number] 12/29/2018 04:45:00 PM EDT [facility] Name Value Range Interpretation Description Data Sup porting Code Source(s) Document(s ) Chloride 98-107 Below low <content Saint [Moles/volume] in normal styleCode="Bold"> Flex phs Serum or Plasma Chloride Medical </content>96 Center MEQ/L L<content styleCode="Italic s"> (98-107 MEQ/L)</content> Sodium 137-145 <content Saint [Moles/volume] in styleCode="Bold"> Flex phs Serum or Plasma Sodium Medical </content>140 Center MEQ/L<content styleCode="Italic s"> (137-145 MEQ/L)</content> Potassium 3.5-5.3 <content Saint [Moles/volume] in styleCode="Bold"> Flex phs Serum or Plasma Potassium Medical </content>3.8 Center [...] Date Data Source Coagulation 12/29/2018 04:45:00 PM [facility] Center Rout.[id number] EDT Name Value Range Interpretation Description Data Sup porting Code Source(s) Document(s ) INR in 0.80-1.2 <content Saint Platelet poor 0 styleCode="Bold" Con plasma by >INR Medical Coagulation </content>0.95 Center assay #<content styleCode="Itali cs"> (0.80-1.20 #)</content> UNK 9.0-13.0 <content Saint styleCode="Bold" Con >Protime Medical </content>10.6 Center SEC<content styleCode="Itali cs"> (9.0-13.0 SEC)</content> aPTT in 25.1-36. <content Saint Platelet poor 5 styleCode="Bold" Con plasma by >Partial Medical Coagulation Thromboplastin Center assay Time </content>32.6 SEC<content styleCode="Itali cs"> (25.1-36.5 SEC)</content> ID Date Data Source CardiacMarkers.[id number] 12/29/2018 04:45:00 PM EDT [facility] -0400 Name Value Range Interpretation Description Data Sup porting Code Source(s) Document(s ) Creatine 55-170 Above high normal <content Saint kinase styleCode="Bold Con [Enzymatic ">CK Medical activity/vol </content>375 Center ume] in IU/L H<content Serum or styleCode="Ital Plasma ics"> (55-170 IU/L)</content> Troponin < 0.034 <content Saint I.cardiac styleCode="Bold Con [Mass/volume ">Troponin I Medical ] in Serum </content>< Center or Plasma 0.012 NG/ML<content styleCode="Ital ics"> (< 0.034 NG/ML)</content > ID Date Data Source LIPID.[id number] 09/12/2018 02:34:00 PM EDT [facility] Name Value Range Interpretation Description Data Sup porting Code Source(s) Document(s ) Triglyceride < 150 <content Saint [Mass/volume] in styleCode="Reuben Con Serum or Plasma d">Triglycerid [facility] </content>102 MG/DL<content styleCode="Katie lics"> (< 150 MG/DL)</conten t> Cholesterol -<200 Above high normal <content Saint [Mass/volume] in styleCode="Reuben Con Serum or Plasma d">Cholesterol Medical </content>319 Center MG/DL H<content styleCode="Katie lics"> (-<200 MG/DL)</conten t> UNK > 60 <content Saint styleCode="Reuben Con d">HDL- Medical Cholesterol Center </content>137 MG/DL<content styleCode="Katie lics"> (> 60 MG/DL)</conten t> UNK < 100 Above high normal <content Saint styleCode="Reuben Con d">LDL-Cholest Medical naa Center </content>162 MG/DL H<content styleCode="Katie lics"> (< 100 MG/DL)</conten t> ID Date Data Source HematologyRou.[id number] 09/12/2018 02:34:00 PM EDT Tim nt [facility] 0400 Name Value Range Interpretation Description Data [...] ics"> (11.5-14.5 %)</content> ID Date Data Source GFR(Creatinine).[id number] 09/12/2018 02:34:00 PM EDT [facility] 0-0400 Name Value Range Interpretation Code Description Data Yue rce(s) Supporting Document(s ) UNK > 60 <content [facility] styleCode="Bold"> Medical Cent er EGFR </content>120 GFR<content styleCode="Italic s"> (> 60 GFR)</content> ID Date Data Source Coagulation 09/12/2018 02:34:00 PM [facility] Rout.[id number] EDT Name Value Range Interpretation Description Data [...] <content Saint limits styleCode="Bold" Con >D-Dimer Medical </content><[facility] Center nt styleCode="Bold" >876 ngFEU HH</content><con tent styleCode="Itali cs"> (< 500 ngFEU)</content> ID Date Data Source CardiacMarkers.[id number] 09/12/2018 02:34:00 PM EDT [facility] -0400 Name Value Range Interpretation Description Data Sup porting Code Source(s) Document(s ) Troponin < 0.034 <content Saint I.cardiac styleCode="Bold Con [Mass/volume ">Troponin I Medical ] in Serum </content>< Center or Plasma 0.012 NG/ML<content styleCode="Ital ics"> (< 0.034 NG/ML)</content > ID Date Data Source [id number] 09/12/2018 02:34:00 PM EDT [facility] Name Value Range Interpretation [...] t> Calcium 8.4-10.2 <content Saint [Mass/volume] styleCode="Reuben Andujar in Serum or d">Calcium Medical Plasma </content>9.5 Center MG/DL<content styleCode="Katie lics"> (8.4-10.2 MG/DL)</conten t> UNK > 60 <content Saint styleCode="Reuben Alvarezs d">EGFR Medical </content>120 Center GFR<content styleCode="Katie lics"> (> 60 GFR)</content> UNK 9-20 <content Saint styleCode="Reuben Alvarezs d">BUN Medical </content>14 Center MG/DL<content styleCode="Katie lics"> (9-20 MG/DL)</conten t> ID Date Data Source Urinalysis.[id number] 09/12/2018 02:27:00 PM EDT [facility] 0 Name Value Range Interpretation Description Data Sup porting Code Source(s) Document(s ) Color of Urine YELLOW <content Saint styleCode="Reuben Alvarezs d">Color, Medical Urine Center </content>YELL OW <content styleCode="Katie lics"> (YELLOW )</content> UNK NEGATIVE <content Saint styleCode="Reuben Alvarezs d">Urine Medical Bilirubin Center </content>SMAL L <content [...] by Test d">Urine Medical strip Specific Center [place] </content>1.02 5 <content styleCode="Katie lics"> (1.015-1.025 )</content> [...] (NONE SEEN LPF)</content> ID Date Data Source CHMROUTINECCDA.[id number] 09/12/2018 02:27:00 PM EDT [facility] -0400 Name Value Range Interpretation Description Data Sup porting Code Source(s) Document(s ) Cannabinoids <content Saint [Presence] in styleCode="Reuben Andujar Urine by Screen d">Cannabinoid Medical method >50 ng/mL s Center </content>PRES UMPTIVE POSITIVE NG/ML (Reference Range: not available)<br/ > ID Date Data Source Urinalysis.[id number] 09/03/2018 12:42:00 PM EDT [facility] 0 Name Value Range Interpretation Description Data Sup porting Code Source(s) Document(s ) UNK CLEAR <content Saint styleCode="Reuben Alvarezs d">Urine [...] (YELLOW )</content> UNK NEGATIVE <content Saint styleCode="Reuben Alvarezs d">Urine Medical Bilirubin Center </content>SMAL L <content styleCode="Katie lics"> (NEGATIVE )</content> Ketones NEGATIVE <content Saint [Mass/volume] styleCode="Reuben Andujar in Urine by d">Urine Medical Test strip Ketone Center </content>NEGA TIVE MG/DL<content styleCode="Katie lics"> (NEGATIVE MG/DL)</conten t> Specific 1.015-1.02 <content Saint gravity of 5 styleCode="Reuben Alvarezs Urine by Test d">Urine Medical strip Specific Center [place] </content>1.02 5 <content styleCode="Katie lics"> (1.015-1.025 )</content> [...] MG/DL)</conten t> UNK 0-3 <content Saint styleCode="Reuben Con d">Urine Red Medical Blood Cell Center </content>0-3 HPF<content styleCode="Katie lics"> (0-3 HPF)</content> Leukocyte NEGATIVE <content Saint esterase styleCode="Reuben Con [Presence] in d">Urine Medical Urine by Test Leukocyte Center strip </content>NEGA TIVE <content styleCode="Katie lics"> (NEGATIVE )</content> ID Date Data Source HematologyRou.[id number] 09/03/2018 12:27:00 PM EDT [facility] 0400 Name Value Range Interpretation Description Data Sup porting Code Source(s) Document(s ) Leukocytes 4.4-11.0 <content Saint [#/volume] in styleCode="Reuben Alvarezs Blood by d">White Blood [facility] Automated Cell Count Center count </content>6.63 KCUMM<content styleCode="Katie lics"> (4.4-11.0 KCUMM)</conten t> ID Date Data Source LIPID.[id number] 09/03/2018 11:54:00 AM EDT [facility] Name Value Range Interpretation Description Data Sup porting Code Source(s) Document(s ) Cholesterol -<200 Above high normal <content Saint [Mass/volume] in styleCode="Reuben Con Serum or Plasma d">Cholesterol Medical </content>269 Center MG/DL H<content styleCode="Katie lics"> (-<200 MG/DL)</conten t> Triglyceride < 150 <content Saint [Mass/volume] in styleCode="Reuben Con Serum or Plasma d">Triglycerid [facility] es Center </content>130 MG/DL<content styleCode="Katie lics"> (< 150 MG/DL)</conten t> UNK < 100 Above high normal <content Saint styleCode="Reuben Con d">LDL-Cholest Medical naa Center </content>128 MG/DL H<content styleCode="Katie lics"> (< 100 MG/DL)</conten t> UNK > 60 <content Saint styleCode="Reuben Con d">HDL- Medical Cholesterol Center </content>115 MG/DL<content styleCode="Katie lics"> (> 60 MG/DL)</conten t> ID Date Data Source HematologyRou.[id number] 09/03/2018 11:54:00 AM EDT Tim [facility] 0400 Name Value Range Interpretation [...] Above high <content Saint distribution 5 normal styleCode="Chiquis Andujar width [Ratio] [...] (0.0 KCUMM)</content > ID Date Data Source GFR(Creatinine).[id number] 09/03/2018 11:54:00 AM EDT Tim [facility] 0-0400 Name Value Range Interpretation Code Description Data Yue rce(s) Supporting Document(s ) UNK > 60 <content [facility] styleCode="Bold"> Medical Cent er EGFR </content>143 GFR<content styleCode="Italic s"> (> 60 GFR)</content> ID Date Data Source Coagulation 09/03/2018 11:54:00 AM [facility] Center Rout.[id number] EDT Name Value Range Interpretation Description Data [...] <content Saint limits styleCode="Bold" Con >D-Dimer Medical </content><[facility] nt styleCode="Bold" >719 ngFEU HH</content><con tent styleCode="Itali cs"> (< 500 ngFEU)</content> ID Date Data Source CardiacMarkers.[id number] 09/03/2018 11:54:00 AM EDT [facility] -0400 Name Value Range Interpretation Description Data [...] 0.034 NG/ML)</content > ID Date Data Source BMP.[id number] 09/03/2018 11:54:00 AM EDT [facility] Name Value Range Interpretation Description Data [...] Below low normal <content Saint [Moles/volume] styleCode="Reuben Alvarezs in Serum or d">Potassium Medical Plasma </content>3.3 Center MEQ/L L<content styleCode="Katie lics"> (3.5-5.3 MEQ/L)</conten t> Sodium 137-145 <content Saint [Moles/volume] styleCode="Reuben Alvarezs in Serum or d">Sodium Medical Plasma </content>144 Center MEQ/L<content styleCode="Katie lics"> (137-145 MEQ/L)</conten t> UNK 9-20 <content Saint styleCode="Reuben Alvarezs d">BUN Medical </content>13 Center MG/DL<content styleCode="Katie lics"> (9-20 MG/DL)</conten t> Creatinine 0.5-1.3 <content Saint [Mass/volume] styleCode="Reuben Alvarezs in Serum or d">Creatinine Medical Plasma </content>0.6 Center MG/DL<content styleCode="Katie lics"> (0.5-1.3 MG/DL)</conten t> Glucose 74-106 <content Saint [Mass/volume] styleCode="Reuben Alvarezs in Serum or d">Glucose Medical Plasma </content>90 Center MG/DL<content styleCode="Katie lics"> (74-106 MG/DL)</conten t> UNK > 60 <content Saint styleCode="Reuben Con d">EGFR Medical </content>143 Center GFR<content styleCode="Katie lics"> (> 60 GFR)</content> Calcium 8.4-10.2 <content Saint [Mass/volume] styleCode="Reuben Con in Serum or d">Calcium Medical Plasma </content>9.4 Center MG/DL<content styleCode="Katie lics"> (8.4-10.2 MG/DL)</conten t> ID Date Data Source Coagulation Rout 03/16/2018 12:41:00 PM EST [facility] Name Value Range Interpretation Description Data Sup porting Code Source(s) Document(s ) aPTT in 25.1-36. Above high normal <content Saint Platelet poor 5 styleCode="Bold" Con plasma by >Partial Medical Coagulation Thromboplastin Center assay Time </content>55.5 SEC H<content styleCode="Itali cs"> (25.1-36.5 SEC)</content> INR in 0.80-1.2 <content Saint Platelet poor 0 styleCode="Bold" Con plasma by >INR Medical Coagulation </content>0.98 Center assay #<content styleCode="Itali cs"> (0.80-1.20 #)</content> UNK 9.0-13.0 <content Saint styleCode="Bold" Con >Protime Medical </content>11.1 Center SEC<content styleCode="Itali cs"> (9.0-13.0 SEC)</content> aPTT in 25.1-36. Above high normal <content Saint Platelet poor 5 styleCode="Bold" Con plasma by >Partial Medical Coagulation Thromboplastin Center assay Time </content>42.4 SEC H<content styleCode="Itali cs"> (25.1-36.5 SEC)</content> ID Date Data Source Liver Profile 03/16/2018 05:15:00 AM EST [facility] Name Value Range Interpretation Description Data Sup [...] Date Data Source CHMROUTINECCDA 03/16/2018 05:15:00 AM EST [facility] Name Value Range Interpretation Description Data Sup [...] (2.5-4.5 MG/DL)</conten t> ID Date Data Source CardiacMarkers 03/15/2018 07:00:00 PM [facility] Name Value Range Interpretation Code Description Data Yue rce(s) Supporting Document(s ) UNK 0-0.034 <content [facility] styleCode="Bold" Medical Cente r >Troponin 4HR </content>< 0.012 NG/ML<content styleCode="Itali cs"> (0-0.034 NG/ML)</content> ID Date Data Source Urinalysis 03/15/2018 06:25:00 PM [facility] Name Value Range Interpretation Description Data Sup porting Code Source(s) Document(s ) Glucose NEGATIVE <content Saint [Mass/volume] styleCode="Reuben Andujar [...] normal <content Saint gravity of 5 styleCode="Reuben Alvarezs Urine by Test d">Urine Medical strip Specific Center [place] </content>1.01 0 NM L<content styleCode="Katie lics"> (1.015-1.025 NM)</content> Protein NEGATIVE <content Saint [Mass/volume] styleCode="Reuben Alvarezs in Urine by d">Urine Medical Test strip Protein Center </content>NEGA TIVE MG/DL<content styleCode="Katie lics"> (NEGATIVE MG/DL)</conten t> Hemoglobin NEGATIVE <content Saint [Presence] in styleCode="Reuben Alvarezs Urine by Test d">Urine Blood Medical strip </content>TRAC Center E <content styleCode="Katie lics"> (NEGATIVE )</content> Leukocyte NEGATIVE <content Saint esterase styleCode="Reuben Andujar [Presence] in d">Urine Medical Urine by Test Leukocyte Center strip </content>NEGA TIVE <content styleCode="Katie lics"> (NEGATIVE )</content> UNK 0-3 <content Saint styleCode="Reuben Alvarezs d">Urine Red Medical Blood Cell Center </content>0-3 HPF<content styleCode="Katie lics"> (0-3 HPF)</content> Urobilinogen 0.2-1.0 <content Saint [Units/volume] styleCode="Reuben Andujar in Urine by d">Urine Medical Test strip Urobilinogen Center </content>0.2 MG/DL<content styleCode="Katie lics"> (0.2-1.0 MG/DL)</conten t> Nitrite NEGATIVE <content Saint [Presence] in styleCode="Reuben Andujar Urine by Test d">Urine Medical strip Nitrite Center </content>NEGA TIVE <content styleCode="Katie lics"> (NEGATIVE )</content> UNK <content Saint styleCode="Reuben Andujar d">Epithelial Medical Cell Center </content>0-2 LPF (Reference Range: not available)<br/ > UNK 0-3 <content Saint styleCode="Reuben Alvarezs d">Urine White Medical Blood Cell Center </content>0-3 HPF<content styleCode="Katie lics"> (0-3 HPF)</content> ID Date Data Source Stools 03/15/2018 05:57:00 PM EST [facility] Name Value Range Interpretation Code Description Data Yue rce(s) Supporting Document(s ) UNK NEGATIVE <content [facility] styleCode="Bold" Medical Cente r >Guaiac, Occult Blood </content>NEGATI VE <content styleCode="Itali cs"> (NEGATIVE )</content> ID Date Data Source LIPID 03/15/2018 03:20:00 PM EST [facility] Name Value Range Interpretation Description Data Sup porting Code Source(s) Document(s ) Triglyceride < 150 <content Saint [Mass/volume] in styleCode="[facility] Serum or Plasma d">Triglycerid Medical es Center </content>141 MG/DL<content styleCode="Katie lics"> (< 150 MG/DL)</conten t> UNK > 60 <content Saint styleCode="[facility] d">HDL- Medical Cholesterol Center </content>103 MG/DL<content styleCode="Katie lics"> (> 60 MG/DL)</conten t> Cholesterol -<200 Above high normal <content Saint [Mass/volume] in styleCode="[facility] Serum or Plasma d">Cholesterol Medical </content>215 Center MG/DL H<content styleCode="Katie lics"> (-<200 MG/DL)</conten t> UNK < 100 <content [facility] styleCode="[facility] d">LDL-Cholest [facility] naa Casey </content>84 MG/DL<content styleCode="Katie lics"> (< 100 MG/DL)</conten t> ID Date Data Source HematologyRou 03/05/2018 01:58:00 PM EST Health System Name Value Range Interpretation Description Data Sup [...] (80.0-100.0 [place])</content> UNK 0.0 <content [facility] styleCode="Bold Cno ">Nucleated Red Medical Blood Cell Center Count [...] Date Data Source GFR(Creatinine) 03/05/2018 01:58:00 PM EST Health System Name Value Range Interpretation Code Description Data Yue rce(s) Supporting Document(s ) UNK > 60 <content [facility] styleCode="Bold"> Medical Cent er EGFR </content>103 GFR<content styleCode="Italic s"> (> 60 GFR)</content> UNK > 60 <content [facility] styleCode="Bold"> Medical Cent er EGFR </content>103 GFR<content styleCode="Italic s"> (> 60 GFR)</content> UNK > 60 <content [facility] styleCode="Bold"> Medical Cent er EGFR </content>120 GFR<content styleCode="Italic s"> (> 60 GFR)</content> ID Date Data Source BMP 03/05/2018 01:58:00 PM EST Health System Name Value Range Interpretation Description Data Sup porting Code Source(s) Document(s ) Sodium 137-145 <content [facility] [Moles/volume] in styleCode="Bold"> Flex phs Serum or Plasma Sodium Medical </content>138 Center MEQ/L<content styleCode="Italic s"> (137-145 MEQ/L)</content> Chloride 98-107 <content [facility] [Moles/volume] in styleCode="Bold"> Flex phs Serum or Plasma Chloride Medical </content>99 Center [...] Flex phs Serum or Plasma Potassium Medical </content>3.5 Center [...] MEQ/L)</content> UNK > 60 <content [facility] styleCode="Bold"> Con [...] Status Description Data Source(s ) Caffeine Use 11/29/2019 completed NEXTGEN (Tim nt Details 12:00:00 AM [facility]) Smoking 11/29/2019 Unknown if ever completed Unknown if ever NEXT GEN (Saint 12:00:00 AM smoked smoked [facility]) Alcohol Use 10/17/2019 completed beer 2 beers NEXTGEN (Sa int Details 12:00:00 AM weekly [facility]) 10/17/2019 Cigarette completed Cigarette smoker NEXTGEN (Saint 12:00:00 AM smoker [facility]) Caffeine Use 09/06/2019 completed NEXTGEN (Tim nt Details 12:00:00 AM [facility]) Smoking 04/20/2019 Daily Smoker completed Daily Smoker [facility] 02:46:00 PM Medical Cent[facility] r EST Smoking 04/20/2019 Daily Smoker completed Daily Smoker [facility] 02:02:00 PM [facility] Cent[facility] r EST Smoking [...] Daily Smoker completed Daily Smoker [facility] 01:25:00 PM Medical Cente r EST Smoking Unknown if ever completed Unknown if ever Allison Andujar smoked smoked [facility] Smoking Unknown if ever completed Unknown if ever [facility] smoked smoked [facility] Vital Signs ID Date Data Source UNK Name Value Range Interpretation Code Description Data Source(s) Oxygen 98 % 98 % NEXTGEN saturation in ([facility] by Pulse [facility] oximetry [facility]) Body mass index 26.40 kg/m2 Overweight 26.40 kg/m2 NEXT[facility] (BMI) [Ratio] (Health System) Respiratory rate 20 /min 20 /min N[facility] (Health System) Body temperature 36.17 Lisa 36.17 Lisa [facility] Heart rate 75 /min 75 /min [facility]) Diastolic blood 88 mm[Hg] 88 mm[Hg] NEXTGEN pressure (Health System) Systolic blood 137 mm[Hg] 137 mm[Hg] NEXTGEN pressure (Health System) Body weight 81.102 kg 81.102 kg [facility] (Health System) Body height 175.26 cm 175.26 cm [facility] (Health System) Oxygen 99 % 99 % NEXTGEN saturation in ([facility]) Body mass index 26.29 kg/m2 Overweight 26.29 kg/m2 [facility] (BMI) [Ratio] (Health System) Respiratory rate 18 /min 18 /min [facility]) Body temperature 36.50 Lisa 36.50 Lisa [facility]) Heart rate 88 /min 88 /min [facility]) Diastolic blood 85 mm[Hg] 85 mm[Hg] NEXTGEN pressure (Health System) Systolic blood 121 mm[Hg] 121 mm[Hg] NEXTGEN pressure (Health System) Body weight 80.739 kg 80.739 kg [facility] (Health System) Body height 175.26 cm 175.26 cm [facility] (Health System) Body temperature 36.653837 Lisa 36.230009 Lisa [facility] Respiratory rate 19 /min 19 /min [facility] Oxygen 98 % 98 % [place] saturation in Medical Arterial blood Center by Pulse oximetry Heart rate 78 /min 78 /min Health System Diastolic blood 80 mm[Hg] 80 mm[Hg] [facility] pressure Medical Center Systolic blood 140 mm[Hg] 140 mm[Hg] [facility] Body weight 81.820475 kg 81.810750 kg [facility]asured [facility] Respiratory rate 18 /min 18 /min [facility] Oxygen 98 % 98 % [place] saturation in Medical Arterial blood Center by Pulse oximetry Heart rate 96 /min 96 /min Health System Body height 175.194248 cm 175.636329 cm [facility] Diastolic blood mm[Hg] [facility] pressure Medical Center Systolic blood mm[Hg] [facility] Body mass index 26.5 kg/m2 26.5 kg/m2 [facility] (BMI) [Ratio] Medical Center Body weight 75.866644 kg 75.927691 kg [facility] Body temperature 36.067704 Lisa 36.504278 Lisa [facility] Respiratory rate 18 /min 18 /min [facility] Center Oxygen 98 % 98 % [place] saturation in Medical Arterial blood Center by Pulse oximetry Heart rate 99 /min 99 /min Health System Body height 175.535807 cm 175.636822 cm [facility] Diastolic blood 82 mm[Hg] 82 mm[Hg] [facility] pressure Medical Center Systolic blood 147 mm[Hg] 147 mm[Hg] [facility] pressure Medical Center Body mass index 24.4 kg/m2 24.4 kg/m2 [facility] (BMI) [Ratio] Medical Center Diastolic blood 97 mmHg 97 mmHg [facility] Systolic blood 144 mmHg 144 mmHg [facility] Respiratory rate 18 bpm 18 bpm [facility] Heart rate 90 bpm 90 bpm [facility] Body temperature 98.2 Fahrenheit 98.2 Fahrenhei t [facility] Diastolic blood 94 mmHg 94 mmHg [facility] Systolic blood 157 mmHg 157 mmHg [facility] Respiratory rate 18 bpm 18 bpm [facility] Heart rate 111 bpm 111 bpm [facility] Body temperature 99.7 Fahrenheit 99.7 Fahrenhei t [facility] Diastolic blood 89 mmHg 89 mmHg [facility] Systolic blood 132 mmHg 132 mmHg [facility] Respiratory rate 18 bpm 18 bpm [facility] Heart rate 106 bpm 106 bpm [facility] Body temperature 99.0 Fahrenheit 99.0 Fahrenhei t [facility] Diastolic blood 86 mmHg 86 mmHg [facility] Systolic blood 142 mmHg 142 mmHg [facility] Respiratory rate 18 bpm 18 bpm [facility] Heart rate 87 bpm 87 bpm [facility] Body temperature 96.2 Fahrenheit 96.2 Fahrenhei t [facility] Diastolic blood 83 mmHg 83 mmHg [facility] Systolic blood 137 mmHg 137 mmHg [facility] Respiratory rate 18 bpm 18 bpm [facility] Heart rate 86 bpm 86 bpm [facility] Body temperature 98.5 Fahrenheit 98.5 Fahrenhei t [facility] Diastolic blood 86 mmHg 86 mmHg [facility] Systolic blood 147 mmHg 147 mmHg [facility] Respiratory rate 18 bpm 18 bpm [facility] Heart rate 91 bpm 91 bpm [facility] Body temperature 98.0 Fahrenheit 98.0 Fahrenhei t [facility] Diastolic blood 81 mmHg 81 mmHg [facility] Systolic blood 133 mmHg 133 mmHg [facility] Respiratory rate 18 bpm 18 bpm [facility] Heart rate 85 bpm 85 bpm [facility] Body temperature 98.1 Fahrenheit 98.1 Fahrenhei t [facility] Diastolic blood 84 mmHg 84 mmHg [facility] Systolic blood 130 mmHg 130 mmHg [facility] Respiratory rate 18 bpm 18 bpm [facility] Heart rate 96 bpm 96 bpm [facility] Body temperature 98.3 Fahrenheit 98.3 Fahrenhei t [facility] Body weight 170 lbs 170 lbs [facility] Diastolic blood 86 mmHg 86 mmHg [facility] Systolic blood 123 mmHg 123 mmHg [facility] Respiratory rate 16 bpm 16 bpm [facility] Heart rate 100 bpm 100 bpm [facility] Body temperature 99.6 Fahrenheit 99.6 Fahrenhei t [facility] Body weight 170 lbs 170 lbs [facility] Diastolic blood 86 mmHg 86 mmHg [facility] Systolic blood 123 mmHg 123 mmHg [facility] Respiratory rate 16 bpm 16 bpm [facility] Heart rate 100 bpm 100 bpm [facility] Body temperature 99.6 Fahrenheit 99.6 Fahrenhei t [facility] Diastolic blood 90 mmHg 90 mmHg [facility] Systolic blood 126 mmHg 126 mmHg [facility] Respiratory rate 18 bpm 18 bpm [facility] Heart rate 84 bpm 84 bpm [facility] Body temperature 98.6 Fahrenheit 98.6 Fahrenhei t [facility] Diastolic blood 85 mmHg 85 mmHg [facility] Systolic blood 155 mmHg 155 mmHg [facility] Respiratory rate 18 bpm 18 bpm [facility] Heart rate 91 bpm 91 bpm [facility] Body temperature 97.5 Fahrenheit 97.5 Fahrenhei t [facility] Diastolic blood 75 mmHg 75 mmHg [facility] Systolic blood 116 mmHg 116 mmHg [facility] Respiratory rate 16 bpm 16 bpm [facility] Heart rate 100 bpm 100 bpm [facility] Body temperature 98.6 Fahrenheit 98.6 Fahrenhei t [facility] Diastolic blood 91 mmHg 91 mmHg [facility] Systolic blood 136 mmHg 136 mmHg [facility] Respiratory rate 18 bpm 18 bpm [facility] Heart rate 91 bpm 91 bpm [facility] Body temperature 98.2 Fahrenheit 98.2 Fahrenhei t [facility] Diastolic blood 95 mmHg 95 mmHg [facility] Systolic blood 151 mmHg 151 mmHg [facility] Respiratory rate 18 bpm 18 bpm [facility] Heart rate 97 bpm 97 bpm [facility] Body temperature 98.6 Fahrenheit 98.6 Fahrenhei t [facility] Diastolic blood 73 mmHg 73 mmHg [facility] Systolic blood 111 mmHg 111 mmHg [facility] Respiratory rate 18 bpm 18 bpm [facility] Heart rate 94 bpm 94 bpm [facility] Body weight 168 lbs 168 lbs [facility] Diastolic blood 82 mmHg 82 mmHg [facility] Systolic blood 131 mmHg 131 mmHg [facility] Respiratory rate 18 bpm 18 bpm [facility] Heart rate 80 bpm 80 bpm [facility] Body temperature 98.5 Fahrenheit 98.5 Fahrenhei t [facility] Diastolic blood 90 mmHg 90 mmHg [facility] Systolic blood 132 mmHg 132 mmHg [facility] Respiratory rate 18 bpm 18 bpm [facility] Heart rate 95 bpm 95 bpm [facility] Body temperature 97.8 Fahrenheit 97.8 Fahrenh t [facility] Diastolic blood 88 mmHg 88 mmHg [facility] Systolic blood 130 mmHg 130 mmHg [facility] Respiratory rate 18 bpm 18 bpm [facility] Heart rate 100 bpm 100 bpm [facility] Body temperature 98.0 Fahrenheit 98.0 Fahrenhei t [facility] Body temperature 35.596564 Lisa 35.526794 Lisa [facility] Respiratory rate 18 /min 18 /min [facility] Heart rate 85 /min 85 /min Health System Diastolic blood 81 mm[Hg] 81 mm[Hg] [facility] Systolic blood 125 mm[Hg] 125 mm[Hg] [facility] Body temperature 36.498331 Lisa 36.648673 Lisa [facility] Respiratory rate 18 /min 18 /min [facility] Oxygen 95 % 95 % [facility] saturation in Medical Arterial blood Center by Pulse oximetry Heart rate 83 /min 83 /min Health System Diastolic blood 58 mm[Hg] 58 mm[Hg] [facility] Systolic blood 125 mm[Hg] 125 mm[Hg] [facility] Body temperature 36.955316 Lisa 36.031551 Lisa [facility] Respiratory rate 20 /min 20 /min [facility] Heart rate 95 /min 95 /min [facility] System Diastolic blood 82 mm[Hg] 82 mm[Hg] [facility] Systolic blood 141 mm[Hg] 141 mm[Hg] [facility] Body temperature 36.900855 Lisa 36.155231 Lisa [facility] Respiratory rate 20 /min 20 /min [facility] Heart rate 81 /min 81 /min [facility] System Diastolic blood 66 mm[Hg] 66 mm[Hg] [facility] Systolic blood 115 mm[Hg] 115 mm[Hg] [facility] Body temperature 37.862666 Lisa 37.621268 Lisa [facility] Respiratory rate 20 /min 20 /min [facility] Heart rate 76 /min 76 /min [facility] System Diastolic blood 80 mm[Hg] 80 mm[Hg] [facility] Systolic blood 130 mm[Hg] 130 mm[Hg] [facility] Body weight 80.871333 kg 80.870210 kg [facility] Measured [facility] Center Body height 175.607812 cm 175.262154 cm [facility] Body mass index 26.34 kg/m2 26.34 kg/m2 [facility] (BMI) [Ratio] Medical Center Body temperature 36.927062 Lisa 36.225532 Lisa [facility] Respiratory rate 20 /min 20 /min [facility] Heart rate 75 /min 75 /min [facility] System Diastolic blood 97 mm[Hg] 97 mm[Hg] [facility] Medical [facility] Systolic blood 134 mm[Hg] 134 mm[Hg] [facility] Body weight 80.902208 kg 80.225003 kg [facility] Body height 175.610448 cm 175.437640 cm [facility] Body mass index 26.34 kg/m2 26.34 kg/m2 [facility] (BMI) [Ratio] Medical Center Oxygen 96 % 96 % [facility] saturation in [facility] Arterial blood Center by Pulse oximetry Body temperature 36.898403 Lisa 36.153067 Lisa [facility] Respiratory rate 20 /min 20 /min [facility] Heart rate 95 /min 95 /min [facility] System Diastolic blood 89 mm[Hg] 89 mm[Hg] [facility] Systolic blood 137 mm[Hg] 137 mm[Hg] [facility] Body weight 76.440767 kg 76.720355 kg [facility] Body height 175.141659 cm 175.437275 cm [facility] Body mass index 24.84 kg/m2 24.84 kg/m2 [facility] (BMI) [Ratio] Medical Center Body temperature 36.553644 Lisa 36.692070 Lisa [facility] Respiratory rate 18 /min 18 /min [facility] Heart rate 102 /min 102 /min [facility] Diastolic blood 78 mm[Hg] 78 mm[Hg] [facility] Systolic blood 126 mm[Hg] 126 mm[Hg] [facility] Oxygen 97 % 97 % [place] saturation in Medical Arterial blood Center by Pulse oximetry Body temperature 36.820827 Lisa 36.451002 Lisa [facility] Respiratory rate 18 /min 18 /min [facility] Heart rate 108 /min 108 /min [facility] Diastolic blood 73 mm[Hg] 73 mm[Hg] [facility] pressure Medical Center Systolic blood 117 mm[Hg] 117 mm[Hg] [facility] Center Oxygen 98 % 98 % [place] saturation in Medical Arterial blood Center by Pulse oximetry Body temperature 36.001479 Lisa 36.112362 Lisa [facility] Respiratory rate 18 /min 18 /min [facility] Heart rate 103 /min 103 /min [facility] System Diastolic blood 75 mm[Hg] 75 mm[Hg] [facility] Systolic blood 115 mm[Hg] 115 mm[Hg] [facility] Body weight 72.155952 kg 72.228178 kg [facility] Oxygen 98 % 98 % [facility] saturation in Medical Arterial blood Center by Pulse oximetry Body height 175.343416 cm 175.485867 cm [facility] Body mass index 23.6 kg/m2 23.6 kg/m2 [facility] (BMI) [Ratio] Medical Center Body temperature 36.135573 Lisa 36.775627 Lisa [facility] Respiratory rate 20 /min 20 /min [facility] Heart rate 74 /min 74 /min [facility] Diastolic blood 78 mm[Hg] 78 mm[Hg] [facility] Systolic blood 115 mm[Hg] 115 mm[Hg] [facility] Body temperature 36.528888 Lisa 36.219499 Lisa [facility] Respiratory rate 20 /min 20 /min [facility] Heart rate 88 /min 88 /min [facility] System Diastolic blood 70 mm[Hg] 70 mm[Hg] [facility] pressure Medical Center Systolic blood 117 mm[Hg] 117 mm[Hg] [facility] Body temperature 36.134319 Lisa 36.871529 Lisa [facility] Respiratory rate 20 /min 20 /min [facility] Heart rate 75 /min 75 /min [facility] Diastolic blood 84 mm[Hg] 84 mm[Hg] [facility] pressure Medical Center Systolic blood 127 mm[Hg] 127 mm[Hg] [facility] Systolic blood 133 mm[Hg] 133 mm[Hg] [facility] Body temperature 36.589156 Lisa 36.492574 Lisa [facility] Respiratory rate 20 /min 20 /min [facility] Heart rate 96 /min 96 /min [facility] Diastolic blood 84 mm[Hg] 84 mm[Hg] [facility] Body temperature 36.612315 Lisa 36.563715 Lisa [facility] Respiratory rate 20 /min 20 /min [facility] Heart rate 78 /min 78 /min [facility] System Diastolic blood 89 mm[Hg] 89 mm[Hg] [facility] Systolic blood 132 mm[Hg] 132 mm[Hg] [facility] Body weight 81.415101 kg 81.339870 kg [facility] Body height 175.207928 cm 175.632917 cm [facility] Body mass index 26.52 kg/m2 26.52 kg/m2 [facility] (BMI) [Ratio] Medical Center Oxygen 97 % 97 % [facility] saturation in [facility] Arterial blood Center by Pulse oximetry Body temperature 36.293594 Lisa 36.004634 Lisa [facility] Respiratory rate 20 /min 20 /min [facility] Heart rate 87 /min 87 /min [facility] Diastolic blood 81 mm[Hg] 81 mm[Hg] [facility] Center Systolic blood 136 mm[Hg] 136 mm[Hg] [facility] Body temperature 36.597184 Lisa 36.727396 Lisa [facility] Respiratory rate 18 /min 18 /min [facility] Heart rate 85 /min 85 /min [facility] Diastolic blood 83 mm[Hg] 83 mm[Hg] [facility] pressure Medical Center Systolic blood 125 mm[Hg] 125 mm[Hg] [facility] Body temperature 37.992715 Lisa 37.481704 Lisa [facility] Respiratory rate 18 /min 18 /min [facility] Heart rate 90 /min 90 /min [facility] Diastolic blood 83 mm[Hg] 83 mm[Hg] [facility] pressure Medical Center Systolic blood 123 mm[Hg] 123 mm[Hg] [facility] Body temperature 36.137943 Lisa 36.068087 Lisa [facility] Respiratory rate 20 /min 20 /min [facility] Heart rate 87 /min 87 /min [facility] Diastolic blood 87 mm[Hg] 87 mm[Hg] [facility] pressure Medical Center Systolic blood 136 mm[Hg] 136 mm[Hg] [facility] Body weight 81.304264 kg 81.550002 kg [facility]asured [facility] Oxygen 100 % 100 % [facility] saturation in Medical Arterial blood Center by Pulse oximetry Body height 175.586662 cm 175.502221 cm [facility] Body mass index 26.58 kg/m2 26.58 kg/m2 [facility] (BMI) [Ratio] Medical Center Body temperature 36.562557 Lisa 36.612436 Lisa [facility] Respiratory rate 19 /min 19 /min [facility] Heart rate 87 /min 87 /min [facility] Diastolic blood 98 mm[Hg] 98 mm[Hg] [facility] Systolic blood 151 mm[Hg] 151 mm[Hg] [facility] Oxygen 97 % 97 % [facility] saturation in Medical Arterial blood Center by Pulse oximetry Oxygen 98 % 98 % [facility] saturation in Medical Arterial blood Center by Pulse oximetry Body temperature 36.627905 Lisa 36.273287 Lisa [facility] Respiratory rate 17 /min 17 /min [facility] Oxygen 98 % 98 % [facility] saturation in Medical Arterial blood Center by Pulse oximetry Heart rate 78 /min 78 /min [facility] Diastolic blood 83 mm[Hg] 83 mm[Hg] [facility] pressure Medical Center Systolic blood 134 mm[Hg] 134 mm[Hg] [facility] Body weight 82.628809 kg 82.554146 kg [facility]asured [facility] Body temperature 36.166580 Lisa 36.283847 Lisa [facility] Respiratory rate 18 /min 18 /min [facility] Oxygen 98 % 98 % [place] saturation in Medical Arterial blood Center by Pulse oximetry Heart rate 78 /min 78 /min [facility] Body height 177.904882 cm 177.392712 cm [facility] Diastolic blood 82 mm[Hg] 82 mm[Hg] [facility] pressure Medical Center Systolic blood 144 mm[Hg] 144 mm[Hg] [facility] Body mass index 25.9 kg/m2 25.9 kg/m2 [facility] (BMI) [Ratio] Medical Center Body temperature 36.426654 Lisa 36.412493 Lisa [facility] Respiratory rate 20 /min 20 /min [facility] Center Heart rate 78 /min 78 /min [facility] System Diastolic blood 78 mm[Hg] 78 mm[Hg] [facility] Medical [facility] Systolic blood 158 mm[Hg] 158 mm[Hg] [facility] Body weight 90.643975 kg 90.324114 kg [facility] Body temperature 36.593771 Lisa 36.687272 Lisa [facility] Respiratory rate 18 /min 18 /min [facility] Oxygen 100 % 100 % [place] saturation in Medical Arterial blood Center by Pulse oximetry Heart rate 91 /min 91 /min [facility] Body height 175.724141 cm 175.857343 cm [facility] Diastolic blood 95 mm[Hg] 95 mm[Hg] [facility] pressure Medical Center Systolic blood 148 mm[Hg] 148 mm[Hg] [facility] Body mass index 29.3 kg/m2 29.3 kg/m2 [facility] (BMI) [Ratio] Medical Center Body temperature 36.469837 Lisa 36.078124 Lisa [facility] Respiratory rate 19 /min 19 /min [facility] Oxygen 98 % 98 % [place] saturation in Medical Arterial blood Center by Pulse oximetry Heart rate 70 /min 70 /min [facility] Diastolic blood 88 mm[Hg] 88 mm[Hg] [facility] pressure Medical Center Systolic blood 132 mm[Hg] 132 mm[Hg] [facility] Body temperature 36.569550 Lisa 36.590125 Lisa [facility] Respiratory rate 17 /min 17 /min [facility] Oxygen 98 % 98 % [facility] saturation in Medical Arterial blood Center by Pulse oximetry Heart rate 73 /min 73 /min [facility] System Diastolic blood 92 mm[Hg] 92 mm[Hg] [facility] pressure Medical Center Systolic blood 143 mm[Hg] 143 mm[Hg] [facility] Body temperature 36.089864 Lisa 36.425432 Lisa [facility] Respiratory rate 16 /min 16 /min [facility] Oxygen 98 % 98 % [facility] saturation in Medical Arterial blood Center by Pulse oximetry Heart rate 92 /min 92 /min [facility] System Diastolic blood 98 mm[Hg] 98 mm[Hg] [facility] Systolic blood 158 mm[Hg] 158 mm[Hg] [facility] Diastolic blood 85 mm[Hg] 85 mm[Hg] [facility] pressure (Health System) Systolic blood 143 mm[Hg] 143 mm[Hg] [facility] pressure (Health [facility]) Oxygen 97 % 97 % [facility] saturation in ([facility] by Pulse Medical oximetry Center) Body mass index 27.61 kg/m2 Overweight 27.61 kg/m2 [facility] (BMI) [Ratio] (Health System) Respiratory rate 19 /min 19 /min [facility]) Body temperature 36.44 Lisa 36.44 Lisa [facility] ([facility]) Heart rate 100 /min 100 /min [facility] ([facility]) Diastolic blood 93 mm[Hg] 93 mm[Hg] [facility] pressure ([facility]) Systolic blood 151 mm[Hg] 151 mm[Hg] [facility] pressure ([facility]) Body weight 84.822 kg 84.822 kg [facility] Body height 175.26 cm 175.26 cm [facility]) Oxygen 99 % 99 % [facility] saturation in ([facility] by Pulse Medical oximetry Center) Body mass index 27.11 kg/m2 Overweight 27.11 kg/m2 [facility] (BMI) [Ratio] (Health System) Respiratory rate 18 /min 18 /min [facility]) Body temperature 36.61 Lisa 36.61 Lisa [facility]) Heart rate 86 /min 86 /min [facility]) Diastolic blood 73 mm[Hg] 73 mm[Hg] [facility] pressure ([facility]) Systolic blood 126 mm[Hg] 126 mm[Hg] [facility] pressure ([facility]) Body weight 83.280 kg 83.280 kg [facility]) Body height 175.26 cm 175.26 cm [facility] (Health System) Body temperature 36.169229 Lisa 36.972420 Lisa [facility] Respiratory rate 20 /min 20 /min [facility] Heart rate 80 /min 80 /min [facility] Diastolic blood 96 mm[Hg] 96 mm[Hg] [facility] Systolic blood 132 mm[Hg] 132 mm[Hg] [facility] Body temperature 36.450144 Lisa 36.694201 Lisa [facility] Respiratory rate 20 /min 20 /min [facility] Heart rate 75 /min 75 /min [facility] Diastolic blood 89 mm[Hg] 89 mm[Hg] [facility] Systolic blood 134 mm[Hg] 134 mm[Hg] [facility] Body temperature 36.798728 Lisa 36.398806 Lisa [facility] Respiratory rate 18 /min 18 /min [facility] Heart rate 73 /min 73 /min [facility] Diastolic blood 79 mm[Hg] 79 mm[Hg] [facility] Systolic blood 119 mm[Hg] 119 mm[Hg] [facility] Body temperature 36.398092 Lisa 36.236102 Lisa [facility] Respiratory rate 18 /min 18 /min [facility] Heart rate 79 /min 79 /min [facility] Diastolic blood 88 mm[Hg] 88 mm[Hg] [facility] Systolic blood 116 mm[Hg] 116 mm[Hg] [facility] Body temperature 37.753794 Lisa 37.223074 Lisa [facility] Respiratory rate 20 /min 20 /min [facility] Heart rate 77 /min 77 /min [facility] Diastolic blood 93 mm[Hg] 93 mm[Hg] [facility] Systolic blood 139 mm[Hg] 139 mm[Hg] [facility] Body temperature 37.342710 Lisa 37.232221 Lisa [facility] Respiratory rate 20 /min 20 /min [facility] Heart rate 81 /min 81 /min [facility] Diastolic blood 101 mm[Hg] 101 mm[Hg] [facility] Systolic blood 151 mm[Hg] 151 mm[Hg] [facility] Body temperature 37.103176 Lisa 37.166389 Lisa [facility] Respiratory rate 18 /min 18 /min [facility] Heart rate 78 /min 78 /min [facility] Diastolic blood 91 mm[Hg] 91 mm[Hg] [facility] Systolic blood 131 mm[Hg] 131 mm[Hg] [facility] Body weight 85.417213 kg 85.999240 kg [facility] Body temperature 36.342366 Lisa 36.168039 Lisa [facility] Respiratory rate 20 /min 20 /min [facility] Heart rate 84 /min 84 /min [facility] Body height 177.099022 cm 177.517802 cm [facility] Diastolic blood 84 mm[Hg] 84 mm[Hg] [facility] Systolic blood 133 mm[Hg] 133 mm[Hg] [facility] Body mass index 26.92 kg/m2 26.92 kg/m2 [facility] (BMI) [Ratio] Medical Center Body temperature 36.222060 Lisa 36.950826 Lisa [facility] Respiratory rate 16 /min 16 /min [facility] Oxygen 100 % 100 % [facility] saturation in Medical Arterial blood Center by Pulse oximetry Heart rate 88 /min 88 /min [facility] Diastolic blood 87 mm[Hg] 87 mm[Hg] [facility] Systolic blood 152 mm[Hg] 152 mm[Hg] [facility] Body temperature 36.189005 Lisa 36.072185 Lisa [facility] Respiratory rate 18 /min 18 /min [facility] Oxygen 96 % 96 % [facility] saturation in Medical Arterial blood Center by Pulse oximetry Heart rate 85 /min 85 /min [facility] Diastolic blood 104 mm[Hg] 104 mm[Hg] [facility] pressure Medical Center Systolic blood 147 mm[Hg] 147 mm[Hg] [facility] pressure Medical Center Oxygen 98 % 98 % [place] saturation in Medical Arterial blood Center by Pulse oximetry Oxygen 98 % 98 % [facility] saturation in Medical Arterial blood Center by Pulse oximetry Body weight 81.646510 kg 81.703360 kg [facility] Measured [facility] Oxygen 99 % 99 % [place] saturation in Medical Arterial blood Center by Pulse oximetry Body height 175.330939 cm 175.491397 cm [facility] Body mass index 26.5 kg/m2 26.5 kg/m2 [facility] (BMI) [Ratio] Medical Center Body temperature 37.727172 Lisa 37.421788 Lisa [facility] Respiratory rate 18 /min 18 /min [facility] Oxygen 97 % 97 % [place] saturation in Medical Arterial blood Center by Pulse oximetry Heart rate 87 /min 87 /min [facility] Diastolic blood 91 mm[Hg] 91 mm[Hg] [facility] pressure Medical Center Systolic blood 154 mm[Hg] 154 mm[Hg] [facility] pressure Medical Center ID Date Data Source [id number] 08/07/2019 04:05:00 PM EDT [facility] Name Value Range Interpretation Code Description Data Source(s) WEIGHT 80.739 kilos 80.739 kilos [facility] HEIGHT 175.3 centimeters 175.3 centimeters [facility] ID Date Data Source [id number] 06/20/2019 09:34:00 PM EDT [facility] Name Value Range Interpretation Code Description Data Source(s) WEIGHT 80.739 kilos 80.739 kilos [facility] HEIGHT 175.3 centimeters 175.3 centimeters [facility] ID Date Data Source [id number] 06/20/2019 07:29:00 PM EDT [facility] - [id number] [place] Name Value Range Interpretation Code Description Data Source(s) WEIGHT 80.739 kilos 80.739 kilos [facility] HEIGHT 175.3 centimeters 175.3 centimeters [facility] ID Date Data Source [id number] 06/20/2019 07:29:00 PM EDT [facility] - [id number] [place] Name Value Range Interpretation Code Description Data Source(s) WEIGHT 80.739 kilos 80.739 kilos [facility] HEIGHT 175.3 centimeters 175.3 centimeters [facility] ID Date Data Source [id number] 06/20/2019 07:28:00 PM EDT [facility] - [id number] [place] Name Value Range Interpretation Code Description Data Source(s) WEIGHT 80.739 kilos 80.739 kilos [facility] HEIGHT 175.3 centimeters 175.3 centimeters [facility] ID Date Data Source [id number] 06/20/2019 07:28:00 PM EDT [facility] - [id number] [place] Name Value Range Interpretation Code Description Data Source(s) WEIGHT 80.739 kilos 80.739 kilos [facility] HEIGHT 175.3 centimeters 175.3 centimeters [facility] ID Date Data Source [id number] 06/20/2019 07:14:00 PM EDT [facility] - [id number] [place] Name Value Range Interpretation Code Description Data Source(s) WEIGHT 80.739 kilos 80.739 kilos [facility] HEIGHT 175.3 centimeters 175.3 centimeters [facility] ID Date Data Source [id number] 06/20/2019 07:11:00 PM EDT [facility] - [id number] [place] Name Value Range Interpretation Code Description Data Source(s) WEIGHT 80.739 kilos 80.739 kilos [facility] HEIGHT 175.3 centimeters 175.3 centimeters [facility] ID Date Data Source [id number] 06/20/2019 07:09:00 PM EDT [facility] - [id number] [place] Name Value Range Interpretation Code Description Data Source(s) WEIGHT 80.739 kilos 80.739 kilos [facility] HEIGHT 175.3 centimeters 175.3 centimeters [facility] ID Date Data Source [id number] 06/20/2019 07:09:00 PM EDT [facility] - [id number] [place] Name Value Range Interpretation Code Description Data Source(s) WEIGHT 80.739 kilos 80.739 kilos [facility] HEIGHT 175.3 centimeters 175.3 centimeters [facility] ID Date Data Source [id number] 06/20/2019 07:04:00 PM EDT [facility] - [id number] [place] Name Value Range Interpretation Code Description Data Source(s) WEIGHT 80.739 kilos 80.739 kilos [facility] HEIGHT 175.3 centimeters 175.3 centimeters [facility] ID Date Data Source [id number] 06/20/2019 07:04:00 PM EDT [facility] - [id number] [place] Name Value Range Interpretation Code Description Data Source(s) WEIGHT 80.739 kilos 80.739 kilos [facility] HEIGHT 175.3 centimeters 175.3 centimeters [facility] ID Date Data Source [id number] 06/20/2019 07:03:00 PM EDT [facility] - [id number] [place] Name Value Range Interpretation Code Description Data Source(s) WEIGHT 80.739 kilos 80.739 kilos [facility] HEIGHT 175.3 centimeters 175.3 centimeters [facility] ID Date Data Source [id number] 06/20/2019 07:02:00 PM EDT [facility] - [id number] [place] Name Value Range Interpretation Code Description Data Source(s) WEIGHT 80.739 kilos 80.739 kilos [facility] HEIGHT 175.3 centimeters 175.3 centimeters [facility] ID Date Data Source [id number] 06/20/2019 07:02:00 PM EDT [facility] - [id number] [place] Name Value Range Interpretation Code Description Data Source(s) WEIGHT 80.739 kilos 80.739 kilos [facility] HEIGHT 175.3 centimeters 175.3 centimeters [facility] Patient Treatment Plan of Care Planned Activity Planned Date Details Description Data Source (s) atorvastatin 40 MG Oral 11/29/2019 12:00:00 [facility]) atorvastatin 40 MG Oral 10/17/2019 12:00:00 [facility] Aspirin 81 MG Delayed 09/06/2019 12:00:00 [facility] ([facility] Oral Tablet [facility]) Chlorthalidone 25 MG Oral 09/06/2019 12:00:00 [facility] ([facility]) atorvastatin 20 MG Oral 09/06/2019 12:00:00 [facility] ([facility]) atorvastatin 20 MG Oral 09/06/2019 12:00:00 [facility] ([facility]) Thiamine 100 MG Oral 06/28/2019 12:00:00 [facility] MULTIVITAMIN 06/28/2019 12:00:00 [facility] (MULTI-VITAMIN DAILY) [address] [facility] EACH TABLET Methadone Hydrochloride 10 06/28/2019 12:00:[facility] MG Oral 06/28/2019 12:00:[facility] Tablet [facility] rivaroxaban 20 MG Oral 03/31/2018 12:00:00 [facility] ([facility] Tablet [Xarelto] AM [facility] ical Center) Aspirin 81 MG Delayed [facility] N ([facility] Release Oral Tablet [facility]) atorvastatin 20 MG Oral NEXT GEN ([facility] Tablet [facility]) Methadone Hydrochloride NEXT GEN ([facility] 0.333 MG/ML Oral [facility] Med ical Suspension [facility]) Chlorthalidone 25 MG Oral NE XTGEN ([facility]) Varenicline Tartrate [facility] (Chantix) 1 Each Tab.ds.pk [facility] Tab.ds.pk, 1 Tab Oral Amoxicillin 875 MG / [facility] Clavulanate 125 MG Oral [facility] Tablet Chlorthalidone [address] [facility] Tablet [facility] atorvastatin [address] [facility] [place] Tablet [Lipitor] [facility] Amoxicillin 875 MG / [facility] Clavulanate 125 MG Oral [facility] Tablet [Augmentin] Methadone Hydrochloride [facility] 0.333 MG/ML Oral [facility] Suspension pantoprazole 40 MG Delayed [facility] Release Oral Tablet [facility] Thiamine [address] [facility] Tablet [facility] Center multivit with min-folic [facility] t Con acid ([facility]) 0.4 mg Tablet, Ordered By: DWIGHT Akersirections: 1 tablet oral daily Ibuprofen [address] [facility] Tablet [facility] Chlorthalidone 25 MG Oral Sa int [facility] Tablet [facility] atorvastatin 20 MG Oral [facility]t [facility] METHADONE 40 MG SOLUBLE [facility] t Con TABLETDirections: oral [facility] CHLORTHALIDONE [address] [facility] TABLETDirections: oral [facility] ATORVASTATIN [address] [facility] TABLETDirections: oral [facility] atorvastatin 20 MG Oral Allison t [facility] Tablet [facility] Thiamine 100 MG Oral [facility] multivit with min-folic [facility] t Con acid ([employer]) 0.4 mg Tablet, Ordered By: DWIGHT Akersirections: 1 tablet oral daily pantoprazole 40 MG Delayed S [facility] Release Oral Tablet [facility] Methadone Hydrochloride [facility] Con 0.333 MG/ML Oral [facility] Suspension [Methadose] Ibuprofen 600 MG Oral [facility] Tablet [facility] Chlorthalidone 25 MG Oral Sa int [facility] Tablet [facility] Indomethacin 50 MG Oral [facility] Capsule [facility] Naproxen sodium 275 MG [facility] Tablet [facility] Amoxicillin 875 MG / [facility] Clavulanate [address] [facility] Tablet [facility] Methadone Hydrochloride [facility] Con 0.333 MG/ML Oral [facility] Suspension rivaroxaban 15 MG Oral [facility] Tablet [Xarelto] [facility] Chlorthalidone 25 MG Oral Sa int [facility] Tablet [facility] atorvastatin 20 MG Oral Allison t [facility] Tablet [facility] Aspirin 81 MG Chewable [facility] apixaban 5 MG Oral Tablet NE XTGEN ([facility] [[facility]] [facility])
[2019-12-11 14:06] LABS: BASO % 1.2 % (0-2.0); EOS % 2.7 % (0-4.5); HEMATOCRIT 35.7 % (35.4-49); LYMPH % 37.7 % (8-40); MCH 30.6 pg (25.7-33.7); MCHC 33.4 g/dl (32.0-35.9); MEAN CELL VOLUME 91.5 fl (80-96); MONO % 5.1 % (3.8-10.2); NEUT % 53.3 % (42.8-82.8); PLATELET COUNT 441 K/MM3 (134-434); RBC 3.91 M/mm3 (4.00-5.60); WHITE BLOOD COUNT 7.2 K/mm3 (4.0-10.0)
[2019-12-11] MEDS ORDERED: METHADONE HCL 10 MG TABLET PO ONE (14:11)
[2019-12-11] MEDS ORDERED: chlordiazePOXIDE HCL 25 MG CAPSULE PO ONE (14:12)
[2019-12-11] MEDS ORDERED: chlordiazePOXIDE HCL 25 MG CAPSULE ONE (14:22)
--- NOTE | 2019-12-11 14:31 | PDOC ---
Attending Attestation - Resident Resident Name: Antonio Lambert - ED Attending Attestation I have performed the following: I have examined & evaluated the patient, The case was reviewed & discussed with the resident, I agree w/resident's findings & plan - HPI HPI: 12/11/19 14:26 69-year-old male with history of polysubstance abuse on methadone, current alcoholic, history of PE presents brought in by nephew for worsening altered mental status in the setting of progressive alcohol intake, recent admission to detox with rising LFTs. Last drink was this morning, denies any withdrawal symptoms at this time. Missed methadone clinic today. - Physicial Exam PE: 12/11/19 14:27 Vitals as noted, o2 sat 96% on room air on my exam. patient alert and cooperative, no acute distress Pupils equal round reactive to light, no jaundice or pallor Dry mucosa Heart is regular, lungs are clear Abdomen benign, slightly enlarged liver No edema No tremors or fasciculations - Medical Decision Making 12/11/19 14:27 69-year-old male with history of polysubstance abuse presents with worsening mental status, declining functionality. Concern for alcoholic encephalopathy, metabolic disarray, no evidence of withdrawal at this time. Labs, urinalysis EKG, chest x-ray CT head Opioid and alcohol withdrawal precautions Admission Heart Score/ECG Review #1 ECG reviewed & interpreted by me at: 16:06 General ECG Interpretation: Sinus Rhythm, Normal Rate (86), Normal Intervals (qtc [id number]), No acute ischemic changes Discharge - Discharge Information Problems reviewed: Yes Clinical Impression/Diagnosis: Alcoholic encephalopathy, Methadone dependence, Transaminitis, History of pulmonary embolus (PE) Condition: Fair - Follow up/Referral - Patient Discharge Instructions - Post Discharge Activity
[2019-12-11 14:49] LABS: ALBUMIN 2.8 g/dl (3.4-5.0); BILIRUBIN,TOTAL 0.3 mg/dL (0.2-1); BLOOD UREA NITROGEN 7.8 mg/dL (7-18); CALCIUM 8.6 mg/dL (8.5-10.1); CREATININE 0.5 mg/dL (0.55-1.3); POTASSIUM 3.4 mmol/L (3.5-5.1); TOT PROT 6.6 g/dl (6.4-8.2)
[2019-12-11 14:50] LABS: PH,URINE 5.5 (5.0-8.0); URINE APPEARANCE CLEAR; URINE BILIRUBIN NEGATIVE (NEGATIVE); URINE COLOR YELLOW; URINE GLUCOSE (UA) NEGATIVE (NEGATIVE); URINE KETONE NEGATIVE (NEGATIVE); URINE LEUK ESTERASE NEGATIVE (NEGATIVE); URINE NITRITE NEGATIVE (NEGATIVE); URINE PROTEIN TRACE (NEGATIVE); URINE UROBILINOGEN 0.2 mg/dL (0.2-1.0)
[2019-12-11] MEDS ORDERED: POTASSIUM CHLORIDE TABS 20 MEQ TABLET.ER (FP) PO ONE ×2 (15:27→16:00)
--- OUTSIDE RECORDS SUMMARY | 2019-12-11 17:57 | XMS ---
[...] [id number] Unavailable Unavailable MD SHRUTI Unavailable Unavailable CONARDO, DO Unavailable Unavailable Routen Unavailable Unavailable Routen Unavailable Unavailable Aszalos, Malia Unavailable Unavailable Aszalos, Malia Unavailable Unavailable Aszalos, Malia Unavailable Unavailable Aszalos, Malia Unavailable Unavailable Aszalos, Malia Unavailable Unavailable Aszalos, Malia Unavailable Unavailable Aszalos, Malia Unavailable Unavailable Aszalos, Malia Unavailable Unavailable Aszalos, Malia Unavailable Unavailable [place] Unavailable [phone] [place] Unavailable [phone] MD MARIBEL Unavailable Unavailable Mari Vuong MD [...] Unavailable Yevgeniy, Mari MD Unavailable Unavailable Yevgeniy, Mrai MD Unavailable Unavailable Yevgeniy, Mari MD Unavailable [...] is protected by Article 27-F of the [facility] Public Health law. If you continue you may haveaccess to information: Regarding HIV / AIDS; Provided by facilities licensed or operated by the [facility] Office of Mental Health; or Provided by the [facility] Office for People With Developmental Disabilities. If such information is present, then the following [facility] mandated warning applies: This information has been [...] law may result in a fine or penitentiary sentence or both. A general authorization for the release of medical or other information is NOT sufficient authorization for further disclosure. Allergies and Adverse Reactions Type Description Substance Reaction Status Data Source(s ) Drug allergy No Known Allergies No Known [facility] Allergies [facility] Propensity to Propensity to Propensity to NEXTG EN ([facility] adverse reactions adverse reactions adverse reactions [facility] Medical (disorder) (disorder) (disorder) Center) Family History Family Member Family Member Family Member Date of Description Data Source(s) Name Gender Status Status Unknown Female Problem 09/06/2019 NEXTGEN ([facility] ([facility]) 12:00:00 AM [facility] Medic al EDT Center) Encounters Encounter Providers Location Date Indications Data Source(s ) Attender: [facility] 11/29/2019 NEXTGEN ([facility] 04:12:00 Con Ringsdavid PM EDT - Medical 11/29/2019 Center) 04:12:00 PM EDT Attender: [facility] 11/09/2019 RADHA N ([facility] 10:32:00 Con AM EDT - Medical 11/09/2019 [place]) 10:32:00 AM EDT Outpatient Attender: 10/17/2019 [facility] Nuris 02:40:00 [facility] Deidra PM EDT r: Nuris Mcclelland r: Nuris [place] OutpatientOFFICE Attender: [facility] 10/17/2019 N EXTGEN ([facility] 02:40:00 [facility] VISIT, EST PM EDT - Medical 10/17/2019 [place]) 02:40:00 PM EDT Outpatient 09/06/2019 [facility] 11:31:00 [facility] AM EDT Outpatient Attender: 09/06/2019 [facility] Nuris 10:14:00 [facility] Deidra AM EDT r: Nuris Mcclelland r: Nuris Lyon OutpatientOFFICE Attender: [facility] 09/06/2019 N EXTGEN ([facility] 10:14:00 Con VISIT, EST AM EDT - Medical 09/06/2019 [place]) 10:14:00 AM EDT Outpatient 09/06/2019 [facility] 12:00:00 [facility] AM EDT Attender: [facility] 09/04/2019 NEXTGEN ([facility] 11:30:00 Con AM EDT - Medical 09/04/2019 [place]) 11:30:00 AM EDT Outpatient 07/06/2019 NEXTGEN 07:59:00 ([place] EDT [facility]) Outpatient 07/05/2019 NEXTGEN 08:18:00 [facility] [facility] Inpatient Attender: 06/20/[address] [facility] TOMRA CASTORENA 09:42:00 WITHDRAWAL [place] MDAttender: PM EDT - [facility] HOMER ALVARADO 06/28/2019 [place] DOAttender: 10:02:00 BALKERA TRAVIS PM EDT MDAdmitter: GREG ROBLES MDReferrer: NO DOCTORConsultan t: Patient- Specialist/PCP ALCOHOL WITHDRAWAL Patient discharged. Emergency Attender: ANTONIO BAHENA 06/20/2019 07:29:[address] [facility] MDAttender: RALPH CAMP EDT [facility] NO [place] DOCTORConsultant: Patient- Specialist/PCP DETOX P 06/20/2019 07:29:00 PM EDT DETOX [facility] DETOX P 06/20/2019 07:29:00 PM EDT DETOX [facility] DETOX P 06/20/2019 07:28:00 PM EDT DETOX [facility] DETOX P 06/20/2019 07:28:00 PM EDT DETOX [facility] DETOX P 06/20/2019 07:14:00 PM EDT DETOX [facility] DETOX P 06/20/2019 07:11:00 PM EDT DETOX [facility] DETOX P 06/20/2019 07:09:00 PM EDT DETOX [facility] DETOX P 06/20/2019 07:09:00 PM EDT DETOX [facility] DETOX P 06/20/2019 07:04:00 PM EDT DETOX [facility] DETOX P 06/20/2019 07:04:00 PM EDT DETOX [facility] DETOX P 06/20/2019 07:03:00 PM EDT DETOX [facility] DETOX P 06/20/2019 07:02:00 PM EDT DETOX [facility] DETOX P 06/20/2019 07:02:00 PM EDT DETOX [facility] DETOX P 06/20/2019 07:01:00 PM EDT DETOX [facility] DETOX P 06/20/2019 06:48:00 PM EDT DETOX [facility] DETOX P 06/20/2019 06:47:00 PM EDT DETOX [facility] DETOX Emergency Attender: Luis Marcus 04/20/2019 01:31: 00 PM [facility] MDAttender: STAFF ED STAFF EST - 04/20/2019 Medical Center PHYSICIANAdmitter: Luis 06:58:00 PM EST [facility] ESPARZA Patient discharged. Attender: [facility] 03/02/2019 03:23:00 [facility] ([facility] EST - 03/02/2019 [facility] Medical 03:23:00 PM EST Center) Outpatient 03/01/2019 12:38:00 [facility] Center Outpatient 03/01/2019 12:00:00 [facility] Emergency Attender: ED STAFF H 02/24/2019 01:47:00 [facility] PHYSICIANAttender: PM EST - 02/24/2019 Medical Center STAFF ED STAFF 03:37:00 PM EST PHYSICIANAdmitter: ED STAFF PHYSICIAN Patient discharged. Attender: [facility] 01/15/2019 05:46:00 [facility] EST - 01/15/2019 [facility] Medical 05:46:00 PM EST Center) Inpatient Attender: ASHLEY FISHER-1D 01/11/2019 04:34:00 [facility] MICHAELBNSHANYANAdmitte PM EST - 01/29/2019 Hospital r: LALO BRANDON 11:19:00 PM EST Patient discharged. Attender: 01/11/2019 [facility] [id number] 04:34:00 PM [facility] [id number] Outpatient STV 01/11/2019 [facility] 12:43:00 PM EST - Hospita l 01/11/2019 05:40:00 PM EST Patient discharged. Attender: 01/11/2019 [facility] [id number] 12:43:00 PM [facility] [id number] Inpatient Attender: LISS LEIJA YAttender: H-HAL5 01/08/2019 [facility] STAFF ED STAFF PHYSICIANAdmitter: 12:25:00 PM E [facility] LISS LEIJA YReferrer: LISS SERNA - 01/11/2019 LISS Y 12:18:00 PM EST Patient discharged. Outpatient 01/08/2019 12:18:00 PM [facility] Center Outpatient 01/08/2019 12:00:00 AM [facility] - 01/11/2019 Center 12:00:00 AM [facility] Outpatient 01/05/2019 09:52:00 AM [facility] EDT Center Outpatient 01/05/2019 12:00:00 AM [facility] EDT Center Inpatient Attender: Last H-HAL6 12/29/2018 03:15:00 PM [facility] EDT - 01/04/2019 Center DOAdmitter: Last 01:40:00 [facility] DOReferrer: [facility] DO Patient discharged. Attender: [facility] 09/13/2018 TYE N ([facility] 01:54:00 PM EDT - [facility] 09/13/2018 Center) 01:54:00 PM EDT Emergency H 09/12/2018 [facility] 01:44:00 PM EDT Medical C enter Emergency H 09/03/2018 [facility] 11:24:00 AM EDT Medical C enter Attender: [facility] 07/24/2018 TYE N ([facility] ESPAR[facility] [place] 11:22:00 AM EDT [facility] 07/24/2018 Center) 11:22:00 AM EDT Attender: [facility] 07/17/2018 TYE N ([facility] ESPAR[facility] [place] 10:51:00 AM EDT [facility] 07/17/2018 Center) 10:51:00 AM EDT OutpatientOFFICE/O Attender: [facility] 03/31/2018 STACY ([facility] 10:38:00 AM EST [facility] EST 03/31/2018 Center) 10:38:00 AM EST OutpatientOFFICE/O Attender: [facility] 03/21/2018 NEXTGEN ([facility] VISIT, [facility] 10:01:00 AM EST - [facility] NEW 03/21/2018 Center) 10:01:00 AM EST Immunizations Vaccine Date Status Description Data Source(s) New in 2011. IIV4 12/30/2018 completed [facility] ephs Medical 06:15:00 PM EDT Center pneumococcal 03/17/2018 completed [facility] Con M edical polysaccharide PPV23 04:08:00 PM EST Cent er pneumococcal 03/17/2018 completed [facility] edical polysaccharide PPV23 04:08:00 PM EST Cent er Medications Medication Brand Start Product Dose Route Administrative Pharmacy [facility] Indications Reaction Description Data Name Date Form Instructions Instructions Source(s) atorvastati atorva ORAL active take 1 NEXTGEN n 40 MG statin 2020 {tabl tablet by (Tim nt Oral Tablet 40 mg 12:00: et} oral route Con atorvastati tablet 00 AM every day Medical n 40 mg EDT [place]) tablet atorvastati atorva ORAL complet take 1 NEXTGEN n 40 MG statin 2020 {tabl ed tablet by (Tim nt Oral Tablet 40 mg 12:00: et} oral route Con atorvastati tablet 00 AM every day Medical n 40 mg EDT [place]) tablet Chlorthalid chlort ORAL active take 1 NEXTGEN one 25 MG halido 2020 {tabl tablet by (S aint Oral Tablet ne 25 12:00: et} oral route Con chlorthalid mg 00 AM every day [place] dical one 25 mg tablet EDT Center) tablet atorvastati atorva ORAL complet take 2 NEXTGEN n 20 MG statin 2020 {tabl ed tablet by (Tim nt Oral Tablet 20 mg 12:00: et} oral route Con atorvastati tablet 00 AM every day Medical n 20 mg EDT [place]) tablet Aspirin 81 aspiri ORAL active take [...] MG Oral Tablet MONONITRATE 12:00:00 AM DAY [place] THIAMINE (VIT B1) EDT Hospita l MONONITRATE (VITAMIN B-1) - (VIT B1) 100 MG TABLET [place] (VITAMIN B-1) 100 MG TABLET Folic Acid 1 FOLIC ACID 1 06/28/2019 TABLET [address] [facility] MG Oral Tablet MG TABLET 12:00:00 AM DAY [place] FOLIC ACID 1 EDT Hospita l MG TABLET - [place] Methadone METHADONE HCL 06/28/2019 TABLET [address] [facility] Hydrochloride 10 MG TABLET 12:00:00 AM [place] 10 MG Oral EDT Hospital Tablet - METHADONE HCL [place] 10 MG TABLET MULTIVITAMIN 06/28/2019 TABLET [address] [facility] (MULTI-VITAMIN 12:00:00 AM DAY [place] DAILY) 1 EACH EDT Hospit al TABLET - [place] Chlorthalidone Chlorthalidone 01/19/2019 1 ORA completed Chlorth [...] 20 mg Tablet Medi estrella tablet [Xarelt [place]) o] Methadone methaDONE 40 1 completed [facility] [...] Capsule Ordered By: Medic al indomethacin Amadou [place] 50 mg Capsule, Fahnrich, Ordered By: MDDirections: [...] completed [facility] MG Oral Tablet (vitamin B1) [facility] thiamine HCl 100 mg Tablet, Medical (vitamin B1) Ordered By: [place] 100 mg Tablet Shelly Ordered By: Shelly Duarte MDDirections: Gerald, 1 tablet oral MDDirections: daily 1 tablet oral daily pantoprazole pantoprazole 1 completed [facility] 40 MG Delayed 40 mg [place] hs Release Oral tablet,delayed Medical Tablet release [place] pantoprazole (DR/EC), 40 mg Ordered By: tablet,delayed Shelly release Gerald, (DR/EC), MDDirections: Ordered By: 1 tablet oral Shelly daily before [place], breakfast MDDirections: 1 tablet oral daily before breakfast multivit with 1 completed Theral o [facility] min-folic acid gix Clint hs (Theralogix Compani Medic al Associate Veterinarian) 0.4 on Cente r mg Tablet, Ordered [...] ns: oral Center Varenicline [address] [facility] Tartrate DAY [place] (Chantix) 1 Hospital Each Tab.ds.pk - Tab.ds.pk, 1 [place] h Tab Oral methodone completed [facility] atorvastatin ATORVASTATIN TABLET [address] [facility] 20 MG Oral CALCIUM BEDTIME [place] Tablet (LIPITOR) 20 DAILY Hosp ital [Lipitor] MG TABLET - ATORVASTATIN [facility] CALCIUM (LIPITOR) 20 MG TABLET Methadone [...] gix Clint hs (Theralogix Compani Medic al Associate Veterinarian) 0.4 on Cente r mg Tablet, Ordered [...] ibuprofen 600 Ordered By: Medical mg Table[facility] Ordered By: Shelly Duarte MDDirections: [place], 1 [...] Delayed 40 mg [place] hs Release Oral tablet,[facility] Tablet release [place] pantoprazole (/EC), 40 mg Ordered By: tablet,delayed [...] [facility]ukes 25 MG Oral (HYGROTON) 25 DAY [place] Tablet MG TABLET Hospital CHLORTHALIDONE - (HYGROTON) [...] name Policy type Policy ID Covered Covered green party's Policy P luz maria / Coverage green party ID relationship to [employer] Inf ormation type escoto MEDICARE [id number] SP [id number] AARP O [id number] M [id number] 01 [id number] T45 [facility] [id number] O [id number] 01 [id number] AETNA O [id number] AETNA USHC [id number] SP [id number] TERRELL MEDICARE AETNA USHC [id number] SP [id number] PPO AETNA USHC SP PPO MAKI MEDICARE [id number] SP [id number] AETNA [id number] SP [id number] MEDICARE O [id number] SEIU O [id number] M [id number] 01 [id number] [id number] M [id number] 01 [id number] T45 MDM AETNA [id number] Self [id number] HEALTH PLAN SELF PAY 000 Self [id number] LOCAL [id number] Self [id number] BENEFIT FUND MEDICARE B [id number] Self [id number] MEDICARE A [id number] Self [id number] O [id number] 01 [id number] LOCAL [id number] O [id number] 01 [id number] LOCAL [id number] - [id number] SP [id number] [facility] Problems, Conditions, and Diagnoses Code Display Name Description Problem Type Effective Data Dates Source(s) 14024247 Hyperlipidemia Hyperlipidemia Problem NEXTGE N ([facility]) [id number] Benign Benign Problem NEXTGEN hypertension hypertension ([facility]) [id number] Foreign body Foreign body Problem NEXTGEN ([facility]) Z13.9 Encounter for ENCOUNTER FOR Diagnosis 10/17/2019 [...] ukes (BMI) 26.0-26.9, (BMI) 26.0-26.9, 09:42:00 PM [facility] adult ADULT [place] E66.3 Overweight OVERWEIGHT Diagnosis 06/20/2019 [facility] 09:42:00 PM [facility] R19.7 Diarrhea, DIARRHEA, Diagnosis 06/20/2019 [facility] unspecified UNSPECIFIED 09:42:00 PM [facility] R25.1 Tremor, TREMOR, Diagnosis 06/20/2019 [facility] unspecified UNSPECIFIED 09:42:00 PM [facility] R74.0 Nonspecific NONSPEC ELEV OF Diagnosis 06/20/2019 [facility] elevation of LEVELS OF 09:42:00 PM [place] levels of TRANSAMNS LACTIC [facility] Hospit al - transaminase and ACID [place] lactic acid dehydrogenase [LDH] Y90.7 Blood alcohol BLOOD ALCOHOL Diagnosis 06/20/2019 [facility] level of 200-239 LEVEL OF 200-239 09:42:00 PM [place] mg/100 ml MG/100 ML [place] D69.6 Thrombocytopenia, THROMBOCYTOPENIA, Diagnosis 06/20/[facility] unspecified UNSPECIFIED 09:42:00 PM [facility] R00.0 Tachycardia, TACHYCARDIA, Diagnosis 06/20[facility] unspecified UNSPECIFIED 09:42:00 PM [facility] F11.20 Opioid dependence, OPIOID DEPENDENCE, Diagnosis [facility] uncomplicated UNCOMPLICATED 09:42:00 PM [facility] F10.239 Alcohol dependence ALCOHOL DEPENDENCE Diagnosis [facility] with withdrawal, WITH WITHDRAWAL, 09:42:00 PM [place] unspecified UNSPECIFIED [place] F10.231 Alcohol dependence ALCOHOL DEPENDENCE Diagnosis [facility] with withdrawal WITH WITHDRAWAL 09:42:00 PM [place] delirium DELIR [place] F10.20 Alcohol ALCOHOL Diagnosis 06/20/2019 [facility] dependence, DEPENDENCE, 09:42:00 PM [place] uncomplicated UNCOMPLICATED [place] F11.10 Opioid abuse, OPIOID ABUSE, Diagnosis 06/20/[facility] uncomplicated UNCOMPLICATED 09:42:00 PM [facility] Y99.9 Unspecified UNSPECIFIED Diagnosis 04/20/2019 [place] external cause EXTERNAL CAUSE 01:31:00 PM [...] FOR ENCOUNTER FOR Diagnosis 02/24/2019 [facility] EXAMINATION AND EXAMINATION AND 01:47:00 PM Med ical OBSERVATION FOR OBSERVATION FOR EST Cent er OTH REASONS OTH REASONS F10.20 Alcohol Alcohol Diagnosis 01/29/2019 dependence, dependence, 01:37:00 PM [facility] uncomplicated uncomplicated EST Hospital Y90.8 Blood alcohol BLOOD ALCOHOL Diagnosis 01/11/2019 [facility] Sandra [facility] level of 240 LEVEL OF 240 [...] F19.10 Other psychoactive OTHER PSYCHOACTIVE Diagnosis 9 [facility] substance abuse, SUBSTANCE ABUSE, 01:44:00 PM M edical uncomplicated UNCOMPLICATED EDT Center F10.129 Alcohol abuse with ALCOHOL ABUSE WITH Diagnosis 9 [facility] intoxication, INTOXICATION, 01:44:00 PM Medical unspecified UNSPECIFIED EDT Center R42 Dizziness and DIZZINESS AND Diagnosis 09/12/2018 [facility] horn giddiness GIDDINESS 01:44:00 PM Medical EDT Center Z72.0 Tobacco use TOBACCO USE Diagnosis 09/03/2018 [facility] Alvarez s 11:24:00 AM Medical EDT Center R07.89 Other chest pain OTHER CHEST PAIN Diagnosis 09/03/2018 Sa int Con 11:24:00 AM Medical EDT Center Diagnosis NEXTGEN ([facility]) Diagnosis NEXTGEN ([facility]) [facility] Surgeries/Procedures Procedure Description Date Indications Data Source(s) OFFICE/OUTPATIENT VISIT, 10/17/2019 NEX TGEN ([facility] EST 12:00:00 AM EDT [facility] 10/17/2019 [place]) 12:00:00 AM EDT OFFICE/OUTPATIENT VISIT, 09/06/2019 NEX TGEN ([facility] EST 12:00:00 AM EDT [facility] 09/06/2019 [place]) 12:00:00 AM EDT ROUTINE VENIPUNCTURE 09/06/2019 NEXTGEN (Saint 12:00:00 AM EDT [facility] 09/06/2019 [place]) 12:00:00 AM EDT OFFICE/OUTPATIENT VISIT, 03/31/2018 NEX TGEN ([facility] EST 12:00:00 AM EST [facility] 03/31/2018 [place]) 12:00:00 AM EST OFFICE/OUTPATIENT VISIT, 03/21/2018 NEX TGEN ([facility] NEW 12:00:00 AM EST [facility] 03/21/2018 [place]) 12:00:00 AM EST Results ID Date Data Source [id number] 11/27/2019 01:20:00 PM EDT [facility] Name Value Range Interpretation Description Data Sup porting Code Source(s) Document(s ) SARS [facility] coronavirus 2 RNA This lab was ordered by [facility] Ac ct Bill Inter and reported by [facility]. ID Date Data Source Liver 09/06/2019 12:00:00 PM EDT [facility] [id number] Name Value Range Interpretation Description Data Sup [...] s"> (3.5-5.0 G/DL)</content> ID Date Data Source LIPID.[id number] 09/06/2019 12:00:00 PM EDT [facility] Name Value Range Interpretation Description Data Sup porting Code Source(s) Document(s ) Triglyceride < 150 Above high normal <content [facility] [Mass/volume] in styleCode="[place] [facility] Serum or Plasma d">Triglycerid [facility] Center </content>209 MG/DL H<content styleCode="Katie lics"> (< 150 MG/DL)</conten t> Cholesterol -<200 Above high normal <content [facility] [Mass/volume] in styleCode="[facility] Serum or Plasma d">Cholesterol Medical </content>262 Center MG/DL H<content styleCode="Katie lics"> (-<200 MG/DL)</conten t> UNK > 60 <content Saint styleCode[facility]">HDL- Medical Cholesterol Center </content>73 MG/DL<content styleCode="Katie lics"> (> 60 MG/DL)</conten t> UNK < 100 Above high normal <content Saint styleCode="[facility]">LDL-Cholest [facility] Center </content>147 MG/DL H<content styleCode="Katie lics"> (< 100 MG/DL)</conten t> ID Date Data Source HematologyRou.[id number] 09/06/2019 12:00:00 PM EDT [facility] 0400 Name Value Range Interpretation Description [...] Basophils 0.0-1.0 <content Saint [#/volume] in styleCode="[facility] Blood by ">Basophil Medical Automated count </content>0.9 [...] (< 1 %)</content> ID Date Data Source GFR(Creatinine).[id number] 09/06/2019 12:00:00 PM EDT [facility] 0-0400 Name Value Range Interpretation Code Description Data Yue rce(s) Supporting Document(s ) UNK > 60 <content [facility] styleCode="Bold"> Medical Cent er EGFR </content>120 GFR<content styleCode="Italic s"> (> 60 GFR)</content> ID Date Data Source MROUTINECCDA.[id number] 09/06/2019 12:00:00 PM EDT [facility] -0400 Name Value Range Interpretation Description Data Sup porting Code Source(s) Document(s ) UNK >= 1.0 <content [facility] styleCode="Bold Medical ">AG Ratio Center </content>1.1 <content styleCode="Ital ics"> (>= 1.0 )</content> UNK 4.2-5.8 <content [facility] styleCode="Bold Medical ">Hemoglobin Center A1C </content>5.3 %<content styleCode="Ital ics"> (4.2-5.8 %)</content> UNK 2.3-3.5 Above high normal <content [facility] styleCode="Bold Medical ">Globulin Center </content>3.6 G/DL H<content styleCode="Ital ics"> (2.3-3.5 G/DL)</content> Protein 6.3-8.2 <content [facility] [Mass/volum styleCode="Bold Medical e] in Serum ">Total Protein Center or Plasma </content>7.7 G/DL<content styleCode="Ital ics"> (6.3-8.2 G/DL)</content> ID Date Data Source [facility].[id number] 09/06/2019 12:00:00 PM EDT [facility] Name Value Range Interpretation Description Data Sup porting Code Source(s) Document(s ) Potassium 3.5-5.3 <content [facility] [Moles/volume] in styleCode="Bold"> Flex [facility] Serum or Plasma Potassium Medical </content>4.2 Center MEQ/L<content styleCode="Italic s"> (3.5-5.3 MEQ/L)</content> Sodium 137-145 Below low <content [facility] [Moles/volume] in normal styleCode="Bold"> Flex [facility] Serum or Plasma Sodium Medical </content>136 Center [...] s"> (3.5-5.0 G/DL)</content> ID Date Data Source [id number] 08/20/2019 12:00:00 AM EDT [facility] Name Value Range Interpretation Code Description Data Yue rce(s) Supporting Document(s ) 2019-nCoV [facility] RNA XXX MIRTA+probe- Imp This lab was ordered by [facility] and reported by [facility]. ID Date Data Source [id number] 07/04/2019 02:59:00 PM [facility] TITA PULIDO JR STATUS: DIS INACCOUNT #: [id number] ADM UNIT #: [id number] ROOM/BED: [place] [address]SEX: M ATTEND: KRISTI CASTORENA MDRADOB: [birth year] AGE: 69 AUTHOR: TOM CASTORENA MD PCP: NO DOCTOR Service Date/Time: 07/04/19 1455 Discharge Summ graeme.Date of Admission: 06/20/19Date of Discharge: 06/27 Disposition: [inpatient rehab]Course of Hospitalization: [69-year-old alcoholic [facility]/withdrawal. He is visiting family from [place]. Cj teague was concerned due to his [...] ew Onset STK/TIA? No Billing Inpatient CodesDischarge [id number] Electronically Sign ed by TOM CASTORENA MD on 07/04/19 at 1458 TOM CASTORENA MD Electronic ally Signed 07/04/19 1458 Providers:TOM CASTORENA MD Report Entered Date/Time: 07/04/19 1455Current Report Status: Signed Report #: [id number] PCP ID: NONE ATTENDING ID: DAVE AUTHOR ID: DAVE Name Value Range Interpretation Code Description Data Yue rce(s) Supporting Document(s ) ID Date Data Source [id number] 06/28/2019 12:37:00 PM EDT [facility] PATIENT: TITA PULIDO JR STATUS: ADM INACCOUNT #: [id number] ADM UNIT #: [id number] ROOM/BE D: 509-01SEX: M ATTEND: KRISTI CASTORENA [...] o'clock.. Currently patient is in no ac [place] distress, continue thiamine, folate, Valium p.r.n. for [...] dependence, unc omplicated Reason Cont. Hospitalization[facility] CodesFollow-up 68779 at 1237 TOM CASTORENA MD Electronically Signed 06/28/19 123 7 Providers:TOM CASTORENA MD Report Entered Date/Time: 06/28/19 1127Current Report S tatus: Signed Report #: [id number] PCP ID: NONE ATTENDING ID: SHSHA AUTHOR ID: SHSHA Name Value Range Interpretation Code Description Data Yue rce(s) Supporting Document(s ) ID Date Data Source [id number] 06/28/2019 08:51:00 AM EDT [facility] Name Value Range Interpretation Description Data Sup porting Code Source(s) Document(s ) GLUCOSE 100 74-106 [facility] mg/dL [facility] BUN 14 mg/dL 7-18 [facility] CREATININE 0.668 0.700-1. Below low normal [facility] mg/dL 300 [facility] EST.GLOMERULAR 118.[address] [facility] FILTRATION mL/min [facility] EST.GFR 143.[address] >=60[address]0 [facility] mL/min [facility] PHARMACY 71.68 >=60[address]00 [facility] COCKCROFT-DARA mL/min [facility] BUN/CREAT 20.9 6.0-20.[address] [facility] RATIO [facility] SODIUM 134 135-[address] [facility] mmol/L [facility] POTASSIUM 3.9 3.5-5.1 [facility] mmol/L [facility] CHLORIDE 104 98-107 [facility] mmol/L [facility] CO2 26 21-32 [facility] mmol/L [facility] ANION GAP 4.0 8-[address] [facility] mmol/L [facility] AST 62 U/L 15-37 Above high normal [facility] ALK PHOS 125 U/L 45-117 Above high normal [facility] TOTAL 0.6 0.2-1.0 [facility] BILIRUBIN mg/dL [facility] TOTAL PROTEIN 6.7 g/dL 6.4-8.2 [facility] ALBUMIN 2.8 g/dL 3.4-5.0 Below low normal [facility] GLOBULIN 3.9 g/dL 2.6-3.8 Above high normal [facility] A/G RATIO 0.7 1.0-5.[address] [facility] CALCULATION [facility] CALCIUM 8.9 8.5-10.1 [facility] mg/dL [facility] ALTI 111 U/L 16-61 Above high normal [facility] OSMOLALITY 269 273-[address] [facility] CALCULATION mos/kg [facility] ID Date Data Source [id number] 06/27/2019 04:26:00 PM EDT [facility] PATIENT: TITA PULIDO JR STATUS: ADM INACCOUNT #: [id number] ADM UNIT #: [id number] ROOM/BE D: L509-01SEX: M ATTEND: KRISTI CASTORENA [...] unspecified Assess Plan:69-year-old male admitted with: -ac [place] alcohol intoxication: Currently doing well, there is no evidence of alcohol wi thdrawal, last time Valium was given as this morning around 2:00 a.m.. Currently pat ient is in no acute distress, continue thiamine, folate, Valium p.r.n. for with LAIE aldrich protocol, chest x-ray shows no infiltrate -history of IV drug use, is c urrently on methadone 30 mg daily. -physical therapy recommends rehab, case managemen t working on places that accept patients with methadone. -out of bed to chair, physica l therapy 2. Methadone dependence ICD Code F11.20 - Opioid dependence, uncompl icated Reason Cont. Hospitalization:Placement Billing Inpatient CodesFollow-up [id number] E lectronically Signed by TOM CASTORENA MD on 06/27/19 at 1425 Addendum 1: 06/27/19 16 26 by TOM CASTORENA MD AddendumTextspoke to the sister Megha [phone] in detail reg POC,she wishes to speak to the for an update,Nurse made aware Electronically S igned by TOM CASTORENA MD on 06/27/19 at 1626 TOM CASTORENA MD Electronic ally Signed 06/27/19 1425 Providers:TOM CASTORENA MD Report Entered Date/Time: 06/27/19 1052Current Report Status: Signed Report #: [id number] PCP ID: NONE ATTENDING ID: SHSHA [facility] Name Value Range Interpretation Code Description Data Yue rce(s) Supporting Document(s ) ID Date Data Source [id number] 06/26/2019 05:10:00 PM EDT [facility] PATIENT: TITA PULIDO JR STATUS: ADM INACCOUNT #: [id number] ADM UNIT #: [id number] ROOM/BE D: L.509-01SEX: M ATTEND: MARGUERITE ALVARADO DONDOB: [birth year] AGE: 69 AUTHOR: HOMRE ALVARADO DO PCP: NO DOCTOR Service Date/Time: [...] Cont. Hospitalization:barbara placement Bill ing Inpatient CodesFollow-up 50350 at 1709 HOMER ALVARADO DO Electronically Signed 06/26/19 1 709 Providers:HOMER ALVARADO DO Report Entered Date/Time: 06/26/19 1706Current Report S tatus: Signed Report #: [id number] PCP ID: NONE ATTENDING ID: LIZA AUTHOR ID: LIZA Name Value Range Interpretation Code Description Data Yue rce(s) Supporting Document(s ) ID Date Data Source [id number] 06/25/2019 05:14:00 PM [facility]T [facility]: TITA PULIDO JR STATUS: ADM INACCOUNT #: [id number] ADM UNIT #: [id number] ROOM/BE D: 509-01SEX: M ATTEND: MARGUERITE ALVARADO [...] Cont. H ospitalization:alcohol withdrawal Billing Inpatient CodesFollow-up 90429 Electroni tsering Signed by HOMER ALVARADO DO on 06/25/19 at 1713 HOMER ALVARADO DO Elec tronically Signed 06/25/19 1713 Providers:HOMER ALVARADO DO Report Entered Mane e/Time: 06/25/19 1712Current Report Status: Signed Report #: [id number] PCP ID: NONE ATTENDING ID: LIZA AUTHOR ID: LIZA Name Value Range Interpretation Code Description Data Yue rce(s) Supporting Document(s ) ID Date Data Source [id number] 06/25/2019 08:58:00 AM EDT [facility] Name Value Range Interpretation Description Data Sup porting Code Source(s) Document(s ) GLUCOSE 102 74-106 [facility] mg/dL [facility] BUN 17 mg/dL 7-18 [facility] CREATININE 0.654 0.700-1. Below low normal [facility] mg/dL 300 [facility] EST.GLOMERULAR 121.[address] [facility] FILTRATION mL/min [facility] EST.GFR 147.[address]60[address] [facility] mL/min [facility] PHARMACY 71.[address] [facility] COCKCROFT-DARA mL/min [facility] BUN/CREAT 25.9 6.0-20.[address] [facility] RATIO [facility] SODIUM 138 135-145 [facility] mmol/L [facility] POTASSIUM 4.2 3.5-5.1 [facility] mmol/L [facility] CHLORIDE 105 98-107 [facility] mmol/L [facility] CO2 23 21-32 [facility] mmol/L [facility] ANION GAP 10.0 8-20 [facility] mmol/L [facility] AST 109 U/L 15-37 Above high normal [facility] ALK PHOS 157 U/L 45-117 Above high normal [facility] TOTAL 0.9 0.2-1.0 [facility] BILIRUBIN mg/dL [facility] TOTAL PROTEIN 7.6 g/dL 6.4-8.2 [facility] ALBUMIN 2.9 g/dL 3.4-5.0 Below low normal [facility] GLOBULIN 4.7 g/dL 2.6-3.8 Above high normal [facility] A/G RATIO 0.6 1.0-5.[address] [facility] CALCULATION [facility] CALCIUM 9.3 8.5-10.1 [facility] mg/dL [facility] ALTI 152 U/L 16-61 Above high normal [facility] OSMOLALITY 277 273-304 [facility] CALCULATION mos/kg [facility] ID Date Data Source [id number] 06/25/2019 08:58:00 AM EDT [facility] Name Value Range Interpretation Description Data Sup porting Code Source(s) Document(s ) PHOSPHORUS 4.5 mg/dL 2.5-4.9 [facility] ID Date Data Source [id number] 06/25/2019 08:58:00 AM EDT [facility] Name Value Range Interpretation Description Data Sup porting Code Source(s) Document(s ) MAGNESIUM 1.9 mg/dL 1.8-2.4 [facility] ID Date Data Source [id number] 06/25/2019 08:48:00 AM EDT [facility] Name Value Range Interpretation Code Description Data Yue rce(s) Supporting Document(s ) WBC 7.55 K/uL 4.00-10.00 [facility] RBC 4.38 M/uL 4.63-6.08 Below low normal [facility] HGB 13.8 g/dL 13.7-17.5 [facility] HCT 41.1 % 40.1-51.0 [facility] MCV 93.8 fL 80.0-96.0 [facility] MCH 31.5 pg 27.0-33.2 [facility] MCHC 33.6 g/dL 32.2-35.5 [facility] RDW 16.1 % 11.6-14.4 Above high normal [facility] PLT 273 K/uL 150-450 # [facility] Delta: 127 on 06/22/19-0758 MPV 10.4 fL 8.5-11.8 [facility] MARTIR% 59.0 % 38.9-69.8 [facility] LYM% 23.2 % 21.7-51.7 [facility] MONO% 13.6 % 4.7-12.2 Above high normal [facility] EOS% 2.6 % 0.8-7.0 [facility] BASO% 1.2 % 0.1-1.2 [facility] IMMATURE GRANULOCYTE% 0.4 % 0.1-0.3 Above high normal [facility] The immature granulocyte count is an enu meration ofmetamyelocytes, myelocyte, and promyelocytes present in [facility] blood sa mple. It does not include band neutrophilforms. ABSOLUTE NEUTROPHIL 4.45 K/uL 1.46-7.12 [facility] LYM# 1.75 K/uL 0.92-4.30 [facility] MONO# 1.03 K/uL 0.24-0.86 Above high normal [facility] EOSIN# 0.20 K/uL 0.04-0.54 [facility] BASO# 0.09 K/uL 0.01-0.08 Above high normal [facility] IMMATURE GRANULOCYTES# 0.03 K/uL 0.01-0.03 [facility] NRBC 0.0 /100WBC 0.0-0.2 [facility] ID Date Data Source [id number] 06/24/2019 05:02:00 PM EDT [facility] PATIENT: TITA PULIDO JR STATUS: ADM INACCOUNT #: [id number] ADM UNIT #: [id number] ROOM/BE D: LStuart509-01SEX: M ATTEND: MARGUERITE ALVARADO [...] Cont. Hospitalizati on:etoh withdrawal Billing Inpatient CodesFollow-up [id number] Electronically Sign ed by HOMER ALVARADO DO on 06/24/19 at 1701 HOMER ALVARADO DO Electronically Signed 06/24/19 1701 Providers:HOMER ALVARADO DO Report Entered Date/Time: 1659Current Report Status: Signed Report #: [id number] PCP ID: NONE ATTENDING ID: LIZA AUTHOR ID: LIZA Name Value Range Interpretation Code Description Data Yue rce(s) Supporting Document(s ) ID Date Data Source [id number] 06/24/2019 09:02:00 AM EDT [facility] Name Value Range Interpretation Description Data Sup porting Code Source(s) Document(s ) GLUCOSE 106 74-106 [facility] mg/dL [facility] BUN 14 mg/dL 7-18 [facility] CREATININE 0.543 0.700-1. Below low normal [facility] mg/dL 300 [facility] EST.GLOMERULAR 150.[address] [facility] FILTRATION mL/min [facility] EST.GFR 182.[address]60[address] [facility] mL/min [facility] PHARMACY 71.[address] [facility] COCKCROFT-DARA mL/min [facility] BUN/CREAT 25.7 6.0-20.[address] [facility] RATIO [facility] SODIUM 137 135-145 [facility] mmol/L [facility] POTASSIUM 4.1 3.5-5.1 [facility] mmol/L [facility] CHLORIDE 104 98-107 [facility] mmol/L [facility] CO2 24 21-32 [facility] mmol/L [facility] ANION GAP 9.0 8-20 [facility] mmol/L [facility] AST 127 U/L 15-37 Above high normal [facility] ALK PHOS 162 U/L 45-117 Above high normal [facility] TOTAL 0.9 0.2-1.0 [facility] BILIRUBIN mg/dL [facility] TOTAL PROTEIN 7.5 g/dL 6.4-8.2 [facility] ALBUMIN 2.8 g/dL 3.4-5.0 Below low normal [facility] GLOBULIN 4.7 g/dL 2.6-3.8 Above high normal [facility] A/G RATIO 0.6 1.0-5.[address] [facility] CALCULATION [facility] CALCIUM 9.2 8.5-10.1 [facility] mg/dL [facility] ALTI 162 U/L 16-61 Above high normal [facility] OSMOLALITY 275 273-304 [facility] CALCULATION mos/kg [facility] ID Date Data Source [id number] 06/24/2019 09:02:00 AM EDT [facility] Name Value Range Interpretation Description Data Sup porting Code Source(s) Document(s ) PHOSPHORUS 3.9 mg/dL 2.5-4.9 [facility] ID Date Data Source [id number] 06/24/2019 09:02:00 AM EDT [facility] Name Value Range Interpretation Description Data Sup porting Code Source(s) Document(s ) MAGNESIUM 2.0 mg/dL 1.8-2.4 [facility] ID Date Data Source [id number] 06/23/2019 04:17:00 PM EDT [facility]: TITA PULIDO JR STATUS: ADM INACCOUNT #: [id number] ADM UNIT #: [id number] ROOM/BE D: 509-01SEX: M ATTEND: MARGUERITE ALVARADO [...] Cont. Hospitalizati on:alcohol withdrawal Billing Inpatient CodesFollow-up [id number] Electronically Sign ed by HOMER ALVARADO DO on 06/23/19 at 1617 HOMER ALVARADO DO Electronically Signed 06/23/19 1617 Providers:HOMER ALVARADO DO Report Entered Date/Time: 1608Current Report Status: Signed Report #: [id number] PCP ID: NONE ATTENDING ID: LIZA AUTHOR ID: LIZA Name Value Range Interpretation Code Description Data Yue rce(s) Supporting Document(s ) ID Date Data Source [id number] 06/23/2019 10:25:00 AM EDT [facility] Name Value Range Interpretation Description Data Sup porting Code Source(s) Document(s ) GLUCOSE 107 74-[address] [facility] mg/dL [facility] BUN 11 mg/dL 7-18 [facility] CREATININE 0.580 0.700-1. Below low normal [facility] mg/dL 300 [facility] EST.GLOMERULAR 139.[address] [facility] FILTRATION mL/min [facility] EST.GFR 168.[address] [facility] mL/min [facility] PHARMACY 71.[address] [facility] COCKCROFT-DARA mL/min [facility] BUN/CREAT 18.9 6.0-20.0 [facility] RATIO [facility] SODIUM 137 135-145 [facility] mmol/L [facility] POTASSIUM 3.4 3.5-5.[address] [facility] mmol/L [facility] CHLORIDE 103 98-107 [facility] mmol/L [facility] CO2 26 21-32 [facility] mmol/L [facility] ANION GAP 8.0 8-20 [facility] mmol/L [facility] AST 183 U/L 15-37 Above high normal [facility] ALK PHOS 175 U/L 45-117 Above high normal [facility] TOTAL 1.3 0.2-1.[address] [facility] BILIRUBIN mg/dL [facility] TOTAL PROTEIN 7.7 g/dL 6.4-8.2 [facility] ALBUMIN 3.0 g/dL 3.4-5.0 Below low normal [facility] GLOBULIN 4.7 g/dL 2.6-3.8 Above high normal [facility] A/G RATIO 0.6 1.0-5.[address] [facility] CALCULATION [facility] CALCIUM 9.3 8.5-10.1 [facility] mg/dL [facility] ALTI 192 U/L 16-61 Above high normal [facility] OSMOLALITY 274 273-304 [facility] CALCULATION mos/kg [facility] ID Date Data Source [id number] 06/23/2019 10:25:00 AM EDT [facility] Name Value Range Interpretation Description Data Sup porting Code Source(s) Document(s ) PHOSPHORUS 2.8 mg/dL 2.5-4.9 [facility] ID Date Data Source [id number] 06/23/2019 10:25:00 AM EDT [facility] Name Value Range Interpretation Description Data Sup porting Code Source(s) Document(s ) MAGNESIUM 1.8 mg/dL 1.8-2.4 [facility] ID Date Data Source [id number] 06/22/2019 09:36:00 PM EDT [facility] PATIENT: TITA PULIDO JR STATUS: ADM INACCOUNT #: [id number] ADM UNIT #: [id number] ROOM/BED: Jessica509-01SEX: M ATTEND: MARGUERITE ALVARADO DONDOB : [birth year] AGE: 69 AUTHOR: GREG ROBLES MD PCP: NO DOCTOR Service Date/Time: 06/20/19 2158 HPI.ADMITTED D ATE:06/20/19 Chief Complaint:. [Alcohol withdrawal] History of Present Illness: [69-year-old alcoholic sent in from family due to alcohol intoxication/withdrawal. He is visiting family from [place]. Family was concerned due to his alcohol [...] pH (4.6 - 8.0) 6.5 Ur Specific [place] ( 1.001 - 1.035) >=1.030 Urine Protein [...] resumed by daytime attending. Billing Inpatient CodesInitial/Cons 94978 Electronically Signed by GREG ROBLES MD o n 06/22/19 at 2136 GREG ROBLES MD Electronically Signed 06/22/19 2136 Providers:GREG ROBLES MD Report Entered Date/Time: 06/20/192157Current Report Status: Signed Report #: [id number] PCP ID: NONE ATTENDING ID: LIZA AUTHOR ID: KRISH Name Value Range Interpretation Code Description Data Yue rce(s) Supporting Document(s ) ID Date Data Source [id number] 06/22/2019 05:14:00 PM EDT [facility] PATIENT: TITA PULIDO JR STATUS: ADM INACCOUNT #: [id number] ADM UNIT #: [id number] ROOM/BE D: 509-01SEX: M ATTEND: DEBRA ALVARADO [...] Cont. Hospitalization:alcohol withdrawal. Billing Inpatient CodesFollo w-up 09762 at 1512 Addendum 1: 06/22/19 1714 by [...] 1508Current Report Status: Signed Rep ort #: [id number] PCP ID: NONE ATTENDING ID: LIZA AUTHOR ID: JENNY JORDAN Name Value Range Interpretation Code Description Data Yue rce(s) Supporting Document(s ) ID Date Data Source [id number] 06/21/2019 09:17:00 AM EDT [facility] DEPART MENT OF DIAGNOSTIC IMAGING Patient Name: TITA PULIDO JR : 1950 Patient Addr.: Todd ENAMORADO , MR#: [id number] [place] [address] Patient Phone #: Dictate Date: 06/22/19 0826 Ordering M.D.: HARLAN DAVIS,CEE ESPARZA ID: DURHI Trans Date: Copies to: ; CC ID: ; Patient Loc: Ledy Lopez509-01 Report #: [id number] Order Number(s): [id number] Site: [facility] Exam Date/Time: 1- Exam: EKG, Routine 12 Lead PROCEDURE: EKG, 12 LEAD ROUTINE COMPARISON: None. Ventricular Rate: 123.00 BPM DC Interval: 180.00 ms QRS Duration: 102.00 ms PRT [place]: 48 31 75 QT/QTC 300/429 CONCLUSION : [...] Supporting Document(s ) ID Date Data Source [id number] 06/22/2019 08:28:00 AM EDT [facility] Name Value Range Interpretation Description Data Sup porting Code Source(s) Document(s ) WBC 7.23 K/uL 4.00-10.[address] RBC 4.22 M/uL 4.63-6.08 Below low normal [facility] HGB 13.1 g/dL 13.7-17.5 Below low normal [facility] HCT 38.6 % 40.1-51.0 Below low normal [facility] MCV 91.5 fL 80.0-96.0 [facility] MCH 31.0 pg 27.0-33.2 [facility] MCHC 33.9 g/dL 32.2-35.5 [facility] RDW 16.3 % 11.6-14.4 Above high normal [facility] PLT 127 K/uL 150-450 Below low normal [facility] MPV 12.0 fL 8.5-11.8 Above high normal [facility] MARTIR% 74.7 % 38.9-69.8 Above high normal [facility] LYM% 16.5 % 21.7-51.7 Below low normal [facility] MONO% 6.9 % 4.7-12.2 [facility] EOS% 0.7 % 0.8-7.0 Below low normal [facility] BASO% 0.8 % 0.1-1.2 [facility] IMMATURE 0.4 % 0.1-0.[address] [facility] GRANULOCYTE% [facility] The immature granulocyte count is an enu meration ofmetamyelocytes, myelocyte, and promyelocytes present in [facility] blood sa mple. It does not include band neutrophilforms. ABSOLUTE NEUTROPHIL COUNT 5.40 K/uL 1.46-7.12 [facility] MONO# 0.50 K/uL 0.24-0.86 [facility] EOSIN# 0.05 K/uL 0.04-0.54 [facility] BASO# 0.06 K/uL 0.01-0.08 [facility] IMMATURE GRANULOCYTES# 0.03 K/uL 0.01-0.03 [facility] ID Date Data Source [id number] 06/22/2019 09:56:00 AM EDT [facility] Name Value Range Interpretation Description Data Sup porting Code Source(s) Document(s ) BAND 2.0 % 0.0-20.0 [facility] NEUTROPHIL [facility] SEGMENTED 64.0 % 38.9-69.8 [facility] NEUTROPHIL [facility] ABSOLUTE 4.77 K/uL 1.46-7.12 [facility] NEUTROPHIL [place] COUNT [facility] BASOPHIL 3.0 % 0.1-1.[address] [facility] normal [facility] LYMPHOCYTE 22.0 % 21.7-51.7 [facility] MONOCYTE 9 % 4.7-12.2 [facility] PLATELET DECREASED ADEQUATE Below low normal [facility] ESTIMATE [facility] HYPOCHROMIA OCCASIONAL NEGATIVE Abnormal [facility] ([facility] to [facility] - results) [place] TARGET CELLS 1+ NEGATIVE Abnormal [facility] ([facility] to [facility] - results) [place] TEAR DROP OCCASIONAL NEGATIVE Abnormal [facility] CELLS (applies to [facility] - results) [place] ID Date Data Source [id number] 06/22/2019 08:44:00 AM EDT [facility] Name Value Range Interpretation Description Data Sup porting Code Source(s) Document(s ) GLUCOSE 117 74-[address] [facility] mg/dL [facility] BUN 13 mg/dL 7-18 [facility] CREATININE 0.539 0.700-1. Below low normal [facility] mg/dL 300 [facility] EST.GLOMERULAR 151.[address] [facility] FILTRATION mL/min [facility] EST.GFR 183.[address] [facility] mL/min [facility] PHARMACY 71.[address] [facility] COCKCROFT-DARA mL/min [facility] BUN/CREAT 24.1 6.0-20.[address] [facility] RATIO [facility] SODIUM 138 135-145 [facility] mmol/L [facility] POTASSIUM 3.2 3.5-5.[address] [facility] mmol/L [facility] CHLORIDE 104 98-107 [facility] mmol/L [facility] CO2 26 21-32 [facility] mmol/L [facility] ANION GAP 8.0 8-20 [facility] mmol/L [facility] AST 322 U/L 15-37 Above high normal [facility] ALK PHOS 189 U/L 45-117 Above high normal [facility] TOTAL 1.5 0.2-1.[address] [facility] BILIRUBIN mg/dL [facility] TOTAL PROTEIN 7.4 g/dL 6.4-8.2 [facility] ALBUMIN 2.9 g/dL 3.4-5.0 Below low normal [facility] GLOBULIN 4.5 g/dL 2.6-3.8 Above high normal [facility] A/G RATIO 0.6 1.0-5.[address] [facility] CALCULATION [facility] CALCIUM 9.6 8.5-10.1 [facility] mg/dL [facility] ALTI 244 U/L 16-61 Above high normal [facility] OSMOLALITY 277 273-304 [facility] CALCULATION mos/kg [facility] ID Date Data Source [id number] 06/22/2019 08:44:00 AM EDT [facility] Name Value Range Interpretation Description Data Sup porting Code Source(s) Document(s ) PHOSPHORUS 1.7 mg/dL 2.5-4.9 Below low normal [facility] ID Date Data Source [id number] 06/22/2019 08:44:00 AM EDT [facility] Name Value Range Interpretation Description Data Sup porting Code Source(s) Document(s ) MAGNESIUM 1.8 mg/dL 1.8-2.4 [facility] ID Date Data Source [id number] 06/21/2019 03:57:00 PM [facility] TITA PULIDO JR STATUS: ADM INACCOUNT #: [id number] ADM UNIT #: [id number] ROOM/ D: [id number]: M ATTEND: DEBRA ALVARADO DOOB: 52 AGE: 69 AUTHOR: HOMER ALVARADO DO PCP: NO DOCTOR Service Date/Time: 06/21/19 1547 Subjective.Seen and examined at [facility]. CIWA score qualified for valium Objective.Height: ft: [...] Cont. Hospitalization: alcohol withdrawal Billing Inpatient CodesFollow-up 20310 Electronically Sign ed by HOMER ALVARADO DO on 06/21/19 at 1556 HOMRE ALVARADO DO Electronically Signed 06/21/19 1556 Providers:HOMER ALVARADO DO Report Entered Date/Time: 1547Current Report Status: Signed Report #: [id number] PCP ID: NONE ATTENDING ID: LIZA AUTHOR ID: LIZA Name Value Range Interpretation Code Description Data Yue rce(s) Supporting Document(s ) ID Date Data Source [id number] 06/21/2019 07:03:00 AM EDT [facility] Name Value Range Interpretation Code Description Data Yue rce(s) Supporting Document(s ) WBC 7.35 K/uL 4.00-10.00 [facility] RBC 4.18 M/uL 4.63-6.08 Below low normal [facility] HGB 13.1 g/dL 13.7-17.5 Below low normal [facility] HCT 37.4 % 40.1-51.0 Below low normal [facility] MCV 89.5 fL 80.0-96.0 [facility] MCH 31.3 pg 27.0-33.2 [facility] MCHC 35.0 g/dL 32.2-35.5 [facility] RDW 16.2 % 11.6-14.4 Above high normal [facility] PLT 115 K/uL 150-450 Below low normal [facility] IPF 9.1 % 1.1-6.1 Above high normal [facility] Immature platelet fraction is the ratio of immatureplatelets to the total number of platelets in the patient'speripheral blo od. These immature cells, newly released fromthe bone marrow, may contain increas ed amounts ofcytoplasmic RNA. This count is a measure of thrombopoieticactivity of t he bone marrow. MPV 11.5 fL 8.5-11.8 [facility] ID Date Data Source [id number] 06/21/2019 09:17:00 AM EDT [facility] Name Value Range Interpretation Description Data Sup porting Code Source(s) Document(s ) BAND NEUTROPHIL 7.0 % 0.0-20.0 [facility] SEGMENTED 80.0 % 38.9-69.[address] [facility] NEUTROPHIL normal [facility] ABSOLUTE 6.39 K/uL 1.46-7.12 [facility] NEUTROPHIL [facility] LYMPHOCYTE 6.0 % 21.7-51.7 Below low normal [facility] MONOCYTE 6 % 4.7-12.2 [facility] METAMYELOCYTE 1.0 % 0.0-1.0 [facility] GIANT PLATELETS 1+ NEGATIVE [facility] PLATELET DECREASED ADEQUATE Below low normal [facility] ESTIMATE [facility] Rare platelet clumps seen on peripheral blood smear. HYPOCHROMIA OCCASIONAL NEGATIVE Abnormal (applies to [facility] non-numeric results) [facility] ANISOCYTOSIS OCCASIONAL NEGATIVE Abnormal (applies to [facility] non-numeric results) [facility] MICROCYTOSIS OCCASIONAL NEGATIVE Abnormal (applies to [facility] non-numeric results) [facility] MACROCYTOSIS OCCASIONAL NEGATIVE Abnormal (applies to [facility] non-numeric results) [facility] TOXIC VACUOLIZATION PRESENT NEGATIVE Abnormal (applies to [facility] non-numeric results) [facility] ID Date Data Source [id number] 06/21/2019 07:15:00 AM EDT [facility] Name Value Range Interpretation Description Data Sup porting Code Source(s) Document(s ) GLUCOSE 128 74-[address] [facility] mg/dL [facility] BUN 17 mg/dL 7-18 [facility] CREATININE 0.709 0.700-[facility]. [facility] 300 [facility] EST.GLOMERULAR 110.71 >=60.0 [facility] FILTRATION mL/min [facility] EST.GFR 133.96 >=60.0 [facility] mL/min [facility] PHARMACY 71.68 >=60.00 [facility] COCKCROFT-DARA mL/min [facility] BUN/CREAT 23.9 6.0-20.[address] [facility] RATIO [facility] SODIUM 136 135-145 [facility] mmol/L [facility] POTASSIUM 3.3 3.5-5.[address] [facility] mmol/L [facility] CHLORIDE 101 98-107 [facility] mmol/L [facility] CO2 22 21-32 [facility] ANION GAP 13.0 8-20 [facility] mmol/L [facility] CALCIUM 8.9 8.5-10.1 [facility] mg/dL [facility] OSMOLALITY 275 273-304 [facility] CALCULATION mos/kg [facility] ID Date Data Source [id number] 06/21/2019 07:15:00 AM EDT [facility] Name Value Range Interpretation Description Data Sup porting Code Source(s) Document(s ) PHOSPHORUS 1.5 mg/dL 2.5-4.9 Below low normal [facility] ID Date Data Source [id number] 06/21/2019 07:15:00 AM EDT [facility] Name Value Range Interpretation Description Data Sup porting Code Source(s) Document(s ) MAGNESIUM 2.1 mg/dL 1.8-2.4 [facility] ID Date Data Source [id number] 06/20/2019 11:49:00 PM EDT [facility] Name Value Range Interpretation Description Data Sup porting Code Source(s) Document(s ) POCT COLOR BROWN YELLOW [facility] POCT CLARITY SLIGHTLY CLEAR [facility] CLOUDY [facility] POCT GLUCOSE NEGATIVE NEGATIVE [facility] mg/dL [facility] POCT BILIRUBIN LARGE NEGATIVE Above high [facility] normal [facility] POCT KETONES >=[address] [facility] mg/dL [facility] POCT SPECIFIC >=1.030 1.001-1.03 [facility] GRAVITY 5 [facility] POCT BLOOD LARGE NEGATIVE [facility] POCT pH 6.5 4.6-8.0 [facility] POCT PROTEIN >=300 NEGATIVE [facility] POCT 2.0 0.2-0.9 [facility] UROBILINOGEN E.U./dL [facility] POCT NITRITE NEGATIVE NEGATIVE [facility] POCT NEGATIVE NEGATIVE [facility] LEUKOCYTES [facility] ID Date Data Source [id number] 06/21/2019 03:14:00 AM EDT [facility] Name Value Range Interpretation Description Data Sup porting Code Source(s) Document(s ) ICTOTEST POSITIVE NEGATIVE [facility] ID Date Data Source [id number] 06/21/2019 12:00:00 AM EDT [facility] Name Value Range Interpretation Description Data Sup porting Code Source(s) Document(s ) WBC IQ 0-5 /HPF 0-5 [facility] RBC IQ 0-3 /HPF 0-3 [facility] BACTERIA IQ TRACE NEGATIVE [facility] /HPF [facility] HYALINE CAST 21-[address] [facility] /LPF [facility] ID Date Data Source [id number] 06/21/2019 12:14:00 AM EDT [facility] Name Value Range Interpretation Description Data Sup porting Code Source(s) Document(s ) AMPHETAMINE NEGATIVE <1000> [facility] SCREEN ng/mL [facility] BARBITURATES NEGATIVE <200> [facility] SCREEN ng/mL [facility] BENZODIAZEPINE NEGATIVE <200> [facility] SCREEN ng/mL [facility] COCAINE NEGATIVE <300> [facility] METABOLITES ng/mL [facility] ECSTASY NEGATIVE <500> [facility] METABOLITE ng/mL [facility] CANNABINOID NEGATIVE <50> [facility] SCREEN ng/mL [facility] METHADONE SCREEN POSITIVE <300> Above high [facility] ng/mL normal [facility] PHENCYCLIDINE NEGATIVE <25> [facility] SCREEN ng/mL [facility] OPIATES SCREEN NEGATIVE <300> [facility] ng/mL [facility] THE SUBMITTED URINE SPECIMEN WAS TESTED AT [...] NG/MLPHENCYCLIDINE 25 NG/ML ID Date Data Source [id number] 06/20/2019 10:06:00 PM EDT 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 Pt i s from [email or web address]. Portions of this section were scribed by [...] 2Patient Addr.: [address], MR#: [id number] EMI,N Y [address] Phone #: Dictate Date: 06/20/191952Daryn Vora: BRIONNA GONZALES NP ID: GABRIEL Ledesma Mane e:Copies to: CEE CLAROS NP;CC ID: [Patient Loc: Bradort #: [id number] Number(s): [id number] Site: [facility] Date/Time: 06/20/191940 Exam: CHEST 1 VIEW AP [...] Medical Decision/Pro wong/CC Progress/ReassessmentTime 5CommentsReceived signout from BACK END DEVELOPER Luther [facility]. HPI:69 y/o M w/ PMHx of ETOH abuse c/o generalized weakness w/ associated chill l and shakiness secondary to alcohol withdraw. Pt denies fever, V, siezures, abd pain orany other acute complaints at this time. Pt states that his last ETOH drink was last night. Pt is from [place] and is visiting family in the area. [...] ndings, agree w/management/plan, accept transfer of careDisposition [facility] HOSPITALIZEDClinical ImpressionPrimary Impression: Alcohol withdrawalQualifiers : Complication of substance-induced condition: with unspecified complication Qualified Code: F10.239 - Alcohol dependence with withdrawal, unspecifiedCondition Fa ir Authenticated by GASTON MITCHELL on 06/20/19 at 2204 at 1952 HARLAN DAVIS,CEE almeida Signed 06/20/191951 Providers:HARLAN DAVIS,JC ESPARZA, JOSE JANE,Holli Entered Date/Time: 06/20/191927Current Report S tatus: Signed Report #: [id number] PCP ID: NONE ATTENDING ID: MONROEKristiLEILANI AUTHOR ID: GABRIEL Name Value Range Interpretation Code Description Data Yue rce(s) Supporting Document(s ) ID Date Data Source [id number] 06/20/2019 09:56:00 PM EDT [facility] Name Value Range Interpretation Code Description Data Yue rce(s) Supporting Document(s ) AMMONIA 22 umol/L 11-32 [facility] ID Date Data Source [id number] 06/20/2019 09:52:00 PM EDT [facility] Name Value Range Interpretation Code Description Data Yue rce(s) Supporting Document(s ) PT 10.5 sec 10.2-13.2 [facility] INR 0.91 [facility] INR IS DESIGNED TO MONITOR THOSE PATIENT S STABILIZED ONORAL ANTICOAGULANT THERAPY. IT IS NOT SUITED FOR PRE-OPSCREENING OR FOR EVALUATING CONDITIONS SUCH LIVERDISEASE.THERAPEUTIC RANGE:PATIENTS ON ORAL ANTICOAGULANTS 2.00 - 3.00PATIENTS WITH PROSTHETIC HEART VALVES 2.50 - 3.5 0 ID Date Data Source [id number] 06/20/2019 09:52:00 PM EDT [facility] Name Value Range Interpretation Code Description Data Yue rce(s) Supporting Document(s ) APTT 28.1 sec 26.2-38.2 [facility] ID Date Data Source [id number] 06/20/2019 07:42:00 PM EDT [facility] DEPART MENT OF DIAGNOSTIC IMAGING Patient Name: TITA PULIDO JR : 1950 Patient Addr.: Todd [address] DR, MR#: [id number] [place] [address] Patient Phone #: Dictate Date: 06/[birth year]/191952 Ordering M.D.: CEE CLAROS NP, MD ID: DURHI Trans Date: Copies to: CEE CLAROS NP; CC ID: ; Patient Loc: [place] Report #: [id number] Order Number(s): [id number] Site: [facility] Exam Date/Time: 06/19 Exam: CHEST 1 VIEW [...] Supporting Document(s ) ID Date Data Source [id number] 06/20/2019 08:28:00 PM EDT [facility] Name Value Range Interpretation Description Data Sup porting Code Source(s) Document(s ) TSH 3RD 0.129 0.358-3. Below low normal [facility] GENERATION uIU/mL 74 [facility] ID Date Data Source [id number] 06/20/2019 08:09:00 PM EDT [facility] Name Value Range Interpretation Code Description Data Yue rce(s) Supporting Document(s ) WBC 9.90 K/uL 4.00-10.00 [facility] RBC 4.53 M/uL 4.63-6.08 Below low normal [facility] HGB 14.1 g/dL 13.7-17.5 [facility] HCT 40.9 % 40.1-51.0 [facility] MCV 90.3 fL 80.0-96.0 [facility] MCH 31.1 pg 27.0-33.2 [facility] MCHC 34.5 g/dL 32.2-35.5 [facility] RDW 16.0 % 11.6-14.4 Above high normal [facility] PLT 130 K/uL 150-450 Below low normal [facility] IPF 9.4 % 1.1-6.1 Above high normal [facility] Immature platelet fraction is the ratio of immatureplatelets to the total number of platelets in the patient'speripheral blo od. These immature cells, newly released fromthe bone marrow, may contain increas ed amounts ofcytoplasmic RNA. This count is a measure of thrombopoieticactivity of t he bone marrow. MPV 11.3 fL 8.5-11.8 [facility] ID Date Data Source [id number] 06/20/2019 08:21:00 PM EDT [facility] Name Value Range Interpretation Description Data Sup porting Code Source(s) Document(s ) GLUCOSE 173 74-[address] [facility] mg/dL [facility] BUN 19 mg/dL 7-18 Above high normal [facility] CREATININE 0.820 0.700-1. [facility] mg/dL 300 [facility] EST.GLOMERULAR 93.[address] [facility] FILTRATION mL/min [facility] EST.GFR 113.[address] [facility] mL/min [facility] PHARMACY 71.[address] [facility] COCKCROFT-DARA mL/min [facility] BUN/CREAT 23.1 6.0-20.[address] [facility] RATIO [facility] SODIUM 134 135-[address] [facility] mmol/L [facility] POTASSIUM 3.7 3.5-5.1 [facility] mmol/L [facility] CHLORIDE 97 98-[address] [facility] mmol/L [facility] CO2 18 21-[address] [facility] mmol/L [facility] ANION GAP 19.0 8-20 [facility] mmol/L [facility] AST 869 U/L 15-37 Above high normal [facility] ALK PHOS 237 U/L 45-117 Above high normal [facility] TOTAL 2.1 0.2-1.[address] [facility] BILIRUBIN mg/dL [facility] TOTAL PROTEIN 8.4 g/dL 6.4-8.2 Above high normal [facility] ALBUMIN 3.4 g/dL 3.4-5.0 [facility] GLOBULIN 5.0 g/dL 2.6-3.8 Above high normal [facility] A/G RATIO 0.7 1.0-5.[address] [facility] CALCULATION [facility] CALCIUM 9.4 8.5-10.1 [facility] mg/dL [facility] ALTI 409 U/L 16-61 Above high normal [facility] OSMOLALITY 275 273-304 [facility] CALCULATION mos/kg [facility] ID Date Data Source [id number] 06/20/2019 08:21:00 PM EDT [facility] Name Value Range Interpretation Code Description Data Yue rce(s) Supporting Document(s ) ALCOHOL-E 235 mg/dL 0-300 [facility] CLINICALLY TOXIC AT > 400 MG/DL. ID Date Data Source [id number] 06/20/2019 08:19:00 PM EDT [facility] Name Value Range Interpretation Description Data Sup porting Code Source(s) Document(s ) ACETAMINOPHEN < 2.0 10.0-30. Below low normal [facility] ug/mL 0 [facility] ID Date Data Source [id number] 06/20/2019 08:19:00 PM EDT [facility] Name Value Range Interpretation Description Data Sup porting Code Source(s) Document(s ) SALICYLATE < 1.7 2.8-20.[address] [facility] mg/dL [facility] ID Date Data Source [id number] 06/20/2019 08:19:00 PM EDT [facility] Name Value Range Interpretation Description Data Sup porting Code Source(s) Document(s ) MANUAL NEGATIVE NEGATIVE [facility] SERUM [facility] ID Date Data Source Liver 01/11/2019 06:35:00 AM EST [facility] Profile.[id number] Name Value Range Interpretation Description Data Sup [...] s"> (3.5-5.0 G/DL)</content> ID Date Data Source HematologyRou.[id number] 01/11/2019 06:35:00 AM MELISSA Dumont [facility] 0500 Name Value Range Interpretation [...] (< 1 %)</content> ID Date Data Source GFR(Creatinine).[id number] 01/11/2019 06:35:00 AM [facility] 0-0500 Name Value Range Interpretation Code Description Data Yue rce(s) Supporting Document(s ) UNK > 60 <content [facility] styleCode="Bold"> Medical Cent er EGFR </content>103 GFR<content styleCode="Italic s"> (> 60 GFR)</content> ID Date Data Source CHMROUTINECCDA.[id number] 01/11/2019 06:35:00 AM [facility] -0500 Name Value Range Interpretation [...] (6.3-8.2 G/DL)</content > ID Date Data Source [facility].[id number] 01/11/2019 06:35:00 AM EST [facility] Name Value Range Interpretation Description Data Sup porting Code Source(s) Document(s ) Sodium 137-145 <content Saint [Moles/volume] in styleCode="Bold"> [facility] Serum or Plasma Sodium Medical </content>137 Center MEQ/L<content styleCode="Italic s"> (137-145 MEQ/L)</content> Potassium 3.5-5.3 <content [facility] [Moles/volume] in styleCode="Bold"> [facility] Serum or Plasma Potassium Medical </content>4.0 Center [...] IU/L)</content> Alkaline 38-126 <content [facility] phosphatase styleCode="Bold"> [facility] [Enzymatic Alkaline Medical activity/volume] Phosphatase (ALP) Cente [...] Data Source Liver 01/10/2019 06:20:00 AM EST [facility] Profile.[id number] Name Value Range Interpretation Description Data Sup [...] s"> (38-126 IU/L)</content> ID Date Data Source HematologyRou.[id number] 01/10/2019 06:20:00 AM MELISSA Dumont nt [facility] 0500 Name Value Range Interpretation Description [...] (< 1 %)</content> ID Date Data Source GFR(Creatinine).[id number] 01/10/2019 06:20:00 AM EST [facility] 0-0500 Name Value Range Interpretation Code Description Data Yue rce(s) Supporting Document(s ) UNK > 60 <content [facility] styleCode="Bold"> Medical Cent er EGFR </content>103 GFR<content styleCode="Italic s"> (> 60 GFR)</content> ID Date Data Source Coagulation 01/10/2019 06:20:00 AM [facility] Rout.[id number] EST Name Value Range Interpretation Description Data Sup porting Code Source(s) Document(s ) INR in 0.80-1.2 <content Saint Platelet poor 0 styleCode="Bold" Con plasma by >INR Medical Coagulation </content>0.97 Center assay #<content styleCode="Itali cs"> (0.80-1.20 #)</content> aPTT in 25.1-36. <content [facility] Platelet poor 5 styleCode="Bold" [facility] plasma by >Partial Medical Coagulation Thromboplastin Center assay Time </content>28.4 SEC<content styleCode="Itali cs"> (25.1-36.5 SEC)</content> UNK 9.0-13.0 <content Saint styleCode="Bold" Con >Protime Medical </content>10.8 Center SEC<content styleCode="Itali cs"> (9.0-13.0 SEC)</content> ID Date Data Source CHMROUTINECCDA.[id number] 01/10/2019 06:20:00 AM MELISSA Dumont nt [facility] -0500 Name Value Range Interpretation Description [...] (6.3-8.2 G/DL)</content > ID Date Data Source [facility].[id number] 01/10/2019 06:20:00 AM EST [facility] Name Value Range Interpretation Description Data Sup porting Code Source(s) Document(s ) Sodium 137-145 <content Saint [Moles/volume] in styleCode="Bold"> [facility] Serum or Plasma Sodium Medical </content>138 Center MEQ/L<content styleCode="Italic s"> (137-145 MEQ/L)</content> Chloride 98-107 <content [facility] [Moles/volume] in styleCode="Bold"> [facility] Serum or Plasma Chloride Medical </content>100 Center MEQ/L<content styleCode="Italic s"> (98-107 MEQ/L)</content> Carbon dioxide, 22-30 Above high <content Saint total normal styleCode="Bold"> Con [Moles/volume] in Carbon Dioxide Medical Serum or Plasma </content>31 Center MEQ/L H<content styleCode="Italic s"> (22-30 MEQ/L)</content> Potassium 3.5-5.3 Below low <content Saint [Moles/volume] in normal styleCode="Bold"> [facility] Serum or Plasma Potassium Medical </content>3.3 Center [...] s"> (3.5-5.0 G/DL)</content> ID Date Data Source Urinalysis.[id number] 01/08/2019 11:10:00 PM MELISSA Dumont [facility] 0 Name Value Range Interpretation Description Data Sup porting Code Source(s) Document(s ) Color of Urine YELLOW <content Saint styleCode="[facility] d">Color, Medical Urine Center </content>YELL OW <content styleCode="Katie lics"> (YELLOW )</content> Glucose NEGATIVE <content Saint [Mass/volume] styleCode="Reuben Andujar in Urine by d">Urine Medical Test strip Glucose Center </content>NEGA TIVE MG/DL<content styleCode="Katie lics"> (NEGATIVE MG/DL)</conten t> UNK CLEAR <content [facility] styleCode="[facility] d">Urine Medical Clarity Center </content>CLARK R <content [...] by Test d">Urine Medical strip Specific Center [place] </content>1.02 0 <content styleCode="Katie lics"> (1.015-1.025 )</content> [...] lics"> (NEGATIVE )</content> ID Date Data Source CHMROUTINECCDA.[id number] 01/08/2019 11:10:00 PM EST Tim [facility] -0500 Name Value Range Interpretation Description Data Sup porting Code Source(s) Document(s ) Cannabinoids <content Saint [Presence] in styleCode="Reuben Con Urine by Screen d">Cannabinoid Medical method >50 ng/mL s Center </content>PRES UMPTIVE POSITIVE NG/ML (Reference Range: not available)<br/ > ID Date Data Source Liver 01/08/2019 01:23:00 PM EST [facility] Profile.[id number] Name Value Range Interpretation Description Data Sup [...] s"> (0.0-0.3 MG/DL)</content> ID Date Data Source HematologyRou.[id number] 01/08/2019 01:23:00 PM MELISSA Dumont [facility] 0500 Name Value Range Interpretation [...] ics"> (8.0-11.0 [place])</content> ID Date Data Source GFR(Creatinine).[id number] 01/08/2019 01:23:00 PM MELISSA Dumont [facility] 0-0500 Name Value Range Interpretation Code Description Data Yue rce(s) Supporting Document(s ) UNK > 60 <content [facility] styleCode="Bold"> Medical Cent er EGFR </content>103 GFR<content styleCode="Italic s"> (> 60 GFR)</content> ID Date Data Source [facility].[id number] 01/08/2019 01:23:00 PM EST [facility] Name Value Range Interpretation [...] Data Source Liver 01/03/2019 06:52:00 AM EDT [facility] Profile.[id number] Name Value Range Interpretation Description Data Sup [...] IU/L)</content> Alkaline 38-126 <content Saint phosphatase styleCode="Bold"> [facility] [Enzymatic Alkaline Medical activity/volume] Phosphatase (ALP) Cente [...] s"> (0.2-1.3 MG/DL)</content> ID Date Data Source HematologyRou.[id number] 01/03/2019 06:52:00 AM EDT Tim [facility] 0400 Name Value Range Interpretation Description Data Sup porting Code Source(s) Document(s ) Leukocytes 4.4-11.0 <content Saint [#/volume] in styleCode="Bold [facility] Blood by ">White Blood Medical Automated count [...] (0.0 KCUMM)</content > ID Date Data Source GFR(Creatinine).[id number] 01/03/2019 06:52:00 AM EDT [facility] 0-0400 Name Value Range Interpretation Code Description Data Yue rce(s) Supporting Document(s ) UNK > 60 <content [facility] styleCode="Bold"> Medical Cent er EGFR </content>120 GFR<content styleCode="Italic s"> (> 60 GFR)</content> ID Date Data Source MIRIAMMROUTTHOMASCCDA.[id number] 01/03/2019 06:52:00 AM EDT [facility] -0400 Name Value Range Interpretation Description [...] (6.3-8.2 G/DL)</content > ID Date Data Source [facility].[id number] 01/03/2019 06:52:00 AM EDT [facility] Name Value Range Interpretation Description Data Sup porting Code Source(s) Document(s ) Sodium 137-145 Below low <content Saint [Moles/volume] in normal styleCode="Bold"> [facility] Serum or Plasma Sodium Medical </content>136 Center MEQ/L L<content styleCode="Italic s"> (137-145 MEQ/L)</content> Creatinine 0.5-1.3 <content Saint [Mass/volume] in styleCode="Bold"> [facility] Serum or Plasma Creatinine Medical </content>0.7 Center MG/DL<content styleCode="Italic s"> (0.5-1.3 MG/DL)</content> Potassium 3.5-5.3 <content Saint [Moles/volume] in styleCode="Bold"> [facility] Serum or Plasma Potassium Medical </content>4.6 Center MEQ/L<content styleCode="Italic s"> (3.5-5.3 MEQ/L)</content> Chloride 98-107 <content Saint [Moles/volume] in styleCode="Bold"> [facility] Serum or Plasma Chloride Medical </content>105 Center [...] Data Source Liver 01/02/2019 05:10:00 AM EDT [facility] Profile.[id number] Name Value Range Interpretation Description Data Sup [...] s"> (3.5-5.0 G/DL)</content> ID Date Data Source HematologyRou.[id number] 01/02/2019 05:10:00 [facility] Name Value Range Interpretation Description [...] low normal <content Saint [#/volume] in styleCode="Bold Ocn Blood by ">Red Blood Medical Automated count [...] (< 1 %)</content> ID Date Data Source GFR(Creatinine).[id number] 01/02/2019 05:10:00 AM EDT [facility] 0-0400 Name Value Range Interpretation Code Description Data Yue rce(s) Supporting Document(s ) UNK > 60 <content [facility] styleCode="Bold"> Medical Cent er EGFR </content>120 GFR<content styleCode="Italic s"> (> 60 GFR)</content> ID Date Data Source CHMROUTINECCDA.[id number] 01/02/2019 05:10:00 AM EDT [facility] -0400 Name Value Range Interpretation Description [...] (1.6-2.3 MG/DL)</conten t> ID Date Data Source [facility].[id number] 01/02/2019 05:10:00 AM EDT [facility] Name Value Range Interpretation Description Data Sup porting Code Source(s) Document(s ) Chloride 98-107 <content Saint [Moles/volume] in styleCode="Bold"> [facility] Serum or Plasma Chloride Medical </content>103 Center MEQ/L<content styleCode="Italic s"> (98-107 MEQ/L)</content> Sodium 137-145 Below low <content Saint [Moles/volume] in normal styleCode="Bold"> [facility] Serum or Plasma Sodium Medical </content>136 Center [...] s"> (0.2-1.3 MG/DL)</content> ID Date Data Source LIPID.[id number] 01/01/2019 05:00:00 AM EDT [facility] Name Value Range Interpretation Description Data [...] UNK < 100 Above high normal <content [facility] styleCode="Reuben Con d">LDL-Cholest Medical naa Center </content>116 MG/DL H<content styleCode="Katie lics"> (< 100 MG/DL)</conten t> ID Date Data Source Coagulation 01/01/2019 05:00:00 AM [facility] Rout.[id number] EDT Name Value Range Interpretation Description Data [...] cs"> (25.1-36.5 SEC)</content> ID Date Data Source [employer]iacMarkers.[id number] 01/01/2019 05:00:00 AM EDT Tim [facility] -0400 Name Value Range Interpretation Description Data Sup porting Code Source(s) Document(s ) Creatine 55-170 <content [facility] kinase styleCode="Bold Medical [Enzymatic ">CK Center activity/vol </content>123 ume] in IU/L<content Serum or styleCode="Ital Plasma ics"> (55-170 IU/L)</content> ID Date Data Source Liver 01/01/2019 05:00:00 AM EDT [facility] Profile.[id number] Name Value Range Interpretation Description Data Sup [...] s"> (0.2-1.3 MG/DL)</content> ID Date Data Source HematologyRou.[id number] 01/01/2019 05:00:00 AM EDT Tim nt [facility] 0400 Name Value Range Interpretation Description Data Sup porting Code Source(s) Document(s ) Erythrocytes 4.4-5.9 Below low normal <content Saint [#/volume] in styleCode="Bold [facility] Blood by ">Red Blood Medical Automated count [...] (0-0.1 KCUMM)</content > ID Date Data Source GFR(Creatinine).[id number] 01/01/2019 05:00:00 AM EDT [facility] 0-0400 Name Value Range Interpretation Code Description Data Yue rce(s) Supporting Document(s ) UNK > 60 <content [facility] styleCode="Bold"> Medical Cent er EGFR </content>143 GFR<content styleCode="Italic s"> (> 60 GFR)</content> ID Date Data Source CHMROUTINECCDA.[id number] 01/01/2019 05:00:00 AM EDT [facility] -0400 Name Value Range Interpretation Description [...] (23-300 IU/L)</content > ID Date Data Source [facility].[id number] 01/01/2019 05:00:00 AM EDT [facility] Name Value Range Interpretation Description Data Sup porting Code Source(s) Document(s ) Sodium 137-145 <content Saint [Moles/volume] in styleCode="Bold"> [facility] Serum or Plasma Sodium Medical </content>137 Center MEQ/L<content styleCode="Italic s"> (137-145 MEQ/L)</content> Potassium 3.5-5.3 Below low <content Saint [Moles/volume] in normal styleCode="Bold"> [facility] Serum or Plasma Potassium Medical </content>3.4 Center [...] s"> (38-126 IU/L)</content> ID Date Data Source GFR(Creatinine).[id number] 12/31/2018 09:26:00 PM EDT [facility] 0-0400 Name Value Range Interpretation Code Description Data Yue rce(s) Supporting Document(s ) UNK > 60 <content [facility] styleCode="Bold"> Medical Cent er EGFR </content>120 GFR<content styleCode="Italic s"> (> 60 GFR)</content> ID Date Data Source [facility].[id number] 12/31/2018 09:26:00 PM EDT [facility] Name Value Range Interpretation Description Data Sup porting Code Source(s) Document(s ) Sodium 137-145 Below low normal <content Saint [Moles/volume] styleCode="Reuben Con in Serum or d">Sodium Medical Plasma </content>136 Center MEQ/L L<content styleCode="Katie lics"> (137-145 MEQ/L)</conten t> Potassium 3.5-5.3 <content Saint [Moles/volume] styleCode="Reuben Con in Serum or d">Potassium Medical Plasma </content>3.7 Center MEQ/L<content styleCode="Katei lics"> (3.5-5.3 MEQ/L)</conten t> Chloride 98-107 <content [...] (74-106 MG/DL)</conten t> ID Date Data Source [employer]iacMarkers.[id number] 12/31/2018 05:15:00 AM EDT Tim [facility] -0400 Name Value Range Interpretation Description Data Sup porting Code Source(s) Document(s ) Creatine 55-170 Above high normal <content [facility] Alvarez s kinase styleCode="Bold Medical [Enzymatic ">CK Center activity/vol </content>272 ume] in IU/L H<content Serum or styleCode="Ital Plasma ics"> (55-170 IU/L)</content> ID Date Data Source Liver 12/31/2018 05:15:00 AM EDT [facility] Profile.[id number] Name Value Range Interpretation Description Data Sup [...] s"> (3.5-5.0 G/DL)</content> ID Date Data Source HematologyRou.[id number] 12/31/2018 05:15:00 AM EDT Tim [facility] 0400 Name Value Range Interpretation [...] (< 1 %)</content> ID Date Data Source GFR(Creatinine).[id number] 12/31/2018 05:15:00 AM EDT [facility] 0-0400 Name Value Range Interpretation Code Description Data Yue rce(s) Supporting Document(s ) UNK > 60 <content [facility] styleCode="Bold"> Medical Cent er EGFR </content>143 GFR<content styleCode="Italic s"> (> 60 GFR)</content> ID Date Data Source MROUTTHOMASCCCAL.[id number] 12/31/2018 05:15:00 AM EDT [facility] -0400 Name Value Range Interpretation Description [...] (23-300 IU/L)</content > ID Date Data Source [facility].[id number] 12/31/2018 05:15:00 AM EDT [facility] Name Value Range Interpretation [...] 8.4-10. <content Saint [Mass/volume] in 2 styleCode="Bold"> Lcint hs Serum or Plasma Calcium Medical </content>9.8 [...] Date Data Source Coagulation 12/31/2018 05:15:00 AM [facility] Rout.[id number] EDT Name Value Range Interpretation Description Data [...] Data Source Liver 12/30/2018 04:26:00 PM EDT [facility] Profile.[id number] Name Value Range Interpretation Description Data Sup [...] s"> (0.2-1.3 MG/DL)</content> ID Date Data Source HematologyRou.[id number] 12/30/2018 04:26:00 PM EDT Tim nt [facility] 0400 Name Value Range Interpretation Description Data Sup porting Code Source(s) Document(s ) Leukocytes 4.4-11.0 <content Saint [#/volume] in styleCode="Bold [facility] Blood by ">White Blood Medical Automated count [...] Basophils 0.0-1.0 <content Saint [#/volume] in styleCode="Bold Ocn Blood by ">Basophil Medical Automated count </content>0.5 [...] (< 1 %)</content> ID Date Data Source MROUTINECCDA.[id number] 12/30/2018 04:26:00 PM EDT Tim [facility] -0400 Name Value Range Interpretation [...] Date Data Source Coagulation 12/30/2018 04:26:00 PM [facility].[id number] EDT Name Value Range Interpretation Description Data [...] cs"> (0.80-1.20 #)</content> ID Date Data Source CardiacMarkers.[id number] 12/30/2018 04:26:00 PM EDT [facility] -0400 Name Value Range Interpretation Description Data Sup porting Code Source(s) Document(s ) Troponin < 0.034 <content Saint I.cardiac styleCode="Bold Con [Mass/volume ">Troponin I Medical ] in Serum </content>< Center or Plasma 0.012 NG/ML<content styleCode="Ital ics"> (< 0.034 NG/ML)</content > ID Date Data Source Stools.[id number] 12/30/2018 09:35:00 AM EDT [facility] Name Value Range Interpretation Code Description Data Yue rce(s) Supporting Document(s ) UNK NEGATIVE <content Saint Con styleCode="Bold" Medical Cente r >Guaiac, Occult Blood </content>NEGATI VE <content styleCode="Itali cs"> (NEGATIVE )</content> ID Date Data Source CHMROUTINECCDA.[id number] 12/29/2018 11:57:00 PM EDT [facility] -0400 Name Value Range Interpretation Code Description Data Yue rce(s) Supporting Document(s ) UNK 30-110 <content Saint Con styleCode="Bold"> Medical Cent er Amylase </content>61 IU/L<content styleCode="Italic s"> (30-110 IU/L)</content> ID Date Data Source [id number] 12/29/2018 11:56:00 PM EDT [facility] -0400 Name Value Range Interpretation Description Data Sup porting Code Source(s) Document(s ) Lipase 23-300 Above high normal <content [place] s [Enzymatic styleCode="Bold Medical activity/vo ">Lipase Center lume] in </content>815 Serum or IU/L H<content Plasma styleCode="Ital ics"> (23-300 IU/L)</content> ID Date Data Source CardiacMarkers.[id number] 12/29/2018 11:55:00 PM EDT [facility] -0400 Name Value Range Interpretation Description Data Sup porting Code Source(s) Document(s ) Troponin < 0.034 <content Saint I.cardiac styleCode="Bold Con [Mass/volume ">Troponin I Medical ] in Serum </content>< Center or Plasma 0.012 NG/ML<content styleCode="Ital ics"> (< 0.034 NG/ML)</content > ID Date Data Source [facility].[id number] 12/29/2018 05:15:00 PM EDT [facility] -0400 Name Value Range Interpretation Description Data Sup porting Code Source(s) Document(s ) Cannabinoids <content Saint [Presence] in styleCode="Reuben [facility] Urine by Screen d">Cannabinoid Medical method >50 ng/mL s Center </content>NEGA TIVE NG/ML (Reference Range: not available)<br/ > ID Date Data Source Urinalysis.[id number] 12/29/2018 05:15:00 PM EDT [facility] 0 Name Value Range Interpretation Description [...] by Test d">Urine Medical strip Specific [facility] [place] </content>1.02 5 <content styleCode="Katie lics"> (1.015-1.025 )</content> [...] Data Source Liver 12/29/2018 04:45:00 PM EDT [facility] Profile.[id number] Name Value Range Interpretation Description Data Sup [...] s"> (3.5-5.0 G/DL)</content> ID Date Data Source HematologyRou.[id number] 12/29/2018 04:45:00 PM EDT Tim nt [facility] 0400 Name Value Range Interpretation Description [...] ics"> (0 /100)</content> ID Date Data Source GFR(Creatinine).[id number] 12/29/2018 04:45:00 PM EDT [facility] 0-0400 Name Value Range Interpretation Code Description Data Yue rce(s) Supporting Document(s ) UNK > 60 <content [facility] styleCode="Bold"> Medical Cent er EGFR </content>143 GFR<content styleCode="Italic s"> (> 60 GFR)</content> ID Date Data Source MROUTINECCDA.[id number] 12/29/2018 04:45:00 PM EDT [facility] -0400 Name Value Range Interpretation Description Data Sup porting Code Source(s) Document(s ) Natriuretic < 125 <content Saint peptide.B styleCode="[facility] prohormone d">NT Pro BNP Medical N-Terminal </content>22.9 Center [Mass/volume] PG/ML<content in Serum or styleCode="Katie Plasma lics"> (< 125 PG/ML)</conten t> ID Date Data Source [facility].[id number] 12/29/2018 04:45:00 PM EDT [facility] Name Value Range Interpretation Description Data [...] Date Data Source Coagulation 12/29/2018 04:45:00 PM [facility] Rout.[id number] EDT Name Value Range Interpretation Description Data [...] cs"> (25.1-36.5 SEC)</content> ID Date Data Source [employer]iacMarkers.[id number] 12/29/2018 04:45:00 PM EDT [facility] -0400 Name Value Range Interpretation Description [...] 0.034 NG/ML)</content > ID Date Data Source LIPID.[id number] 09/12/2018 02:34:00 PM EDT [facility] Name Value Range Interpretation Description Data Sup porting Code Source(s) Document(s ) Triglyceride < 150 <content Saint [Mass/volume] in styleCode="Reuben Con Serum or Plasma d">Triglycerid [facility] </content>102 MG/DL<content styleCode="Katie lics"> (< 150 MG/DL)</conten [...] 100 MG/DL)</conten t> ID Date Data Source HematologyRou.[id number] 09/12/2018 02:34:00 PM EDT Tim nt [facility] 0400 Name Value Range Interpretation Description [...] ics"> (11.5-14.5 %)</content> ID Date Data Source GFR(Creatinine).[id number] 09/12/2018 02:34:00 PM EDT [facility] 0-0400 Name Value Range Interpretation Code Description Data Yue rce(s) Supporting Document(s ) UNK > 60 <content [facility] styleCode="Bold"> Medical Cent er EGFR </content>120 GFR<content styleCode="Italic s"> (> 60 GFR)</content> ID Date Data Source Coagulation 09/12/2018 02:34:00 PM [facility] Rout.[id number] EDT Name Value Range Interpretation Description Data [...] <content [facility] limits styleCode="Bold" Con >D-Dimer Medical </content><[facility] nt styleCode="Bold" >876 ngFEU HH</content><con tent styleCode="Itali cs"> (< 500 ngFEU)</content> ID Date Data Source CardiacMarkers.[id number] 09/12/2018 02:34:00 PM EDT [facility] -0400 Name Value Range Interpretation Description Data Sup porting Code Source(s) Document(s ) Troponin < 0.034 <content Saint I.cardiac styleCode="Bold Con [Mass/volume ">Troponin I Medical ] in Serum </content>< Center or Plasma 0.012 NG/ML<content styleCode="Ital ics"> (< 0.034 NG/ML)</content > ID Date Data Source [id number] 09/12/2018 02:34:00 PM EDT [facility] Name Value Range Interpretation [...] (9-20 MG/DL)</conten t> ID Date Data Source Urinalysis.[id number] 09/12/2018 02:27:00 PM EDT [facility] 0 Name Value Range Interpretation Description [...] by Test d">Urine Medical strip Specific [facility] [place] </content>1.02 5 <content styleCode="Katie lics"> (1.015-1.025 )</content> [...] (NONE SEEN LPF)</content> ID Date Data Source CHMROUTINECCDA.[id number] 09/12/2018 02:27:00 PM EDT [facility] -0400 Name Value Range Interpretation Description Data Sup porting Code Source(s) Document(s ) Cannabinoids <content Saint [Presence] in styleCode="Reuben Andujar Urine by Screen d">Cannabinoid Medical method >50 ng/mL s Center </content>PRES UMPTIVE POSITIVE NG/ML (Reference Range: not available)<br/ > ID Date Data Source Urinalysis.[id number] 09/03/2018 12:42:00 PM EDT [facility] 0 Name Value Range Interpretation Description [...] by Test d">Urine Medical strip Specific [facility] [place] </content>1.02 5 <content styleCode="Katie lics"> (1.015-1.025 )</content> [...] lics"> (NEGATIVE )</content> ID Date Data Source HematologyRou.[id number] 09/03/2018 12:27:00 PM EDT [facility] 0400 Name Value Range Interpretation Description Data Sup porting Code Source(s) Document(s ) Leukocytes 4.4-11.0 <content Saint [#/volume] in styleCode="Reuben Alvarezs Blood by d">White Blood [facility] Automated Cell Count Center count </content>6.63 KCUMM<content styleCode="Katie lics"> (4.4-11.0 KCUMM)</conten t> ID Date Data Source LIPID.[id number] 09/03/2018 11:54:00 AM EDT [facility] Name Value Range Interpretation Description Data Sup porting Code Source(s) Document(s ) Cholesterol -<200 Above high normal <content Saint [Mass/volume] in styleCode="Reuben Con Serum or Plasma d">Cholesterol Medical </content>269 Center MG/DL H<content styleCode="Katie lics"> (-<200 MG/DL)</conten t> Triglyceride < 150 <content Saint [Mass/volume] in styleCode="Reuben Con Serum or Plasma d">Triglycerid [facility] Center </content>130 MG/DL<content styleCode="Katie lics"> (< 150 MG/DL)</conten t> UNK < 100 Above high normal <content Saint styleCode="Reuben Con d">LDL-Cholest Medical naa Center </content>128 MG/DL H<content styleCode="Katie lics"> (< 100 MG/DL)</conten t> UNK > 60 <content Saint styleCode="Reuben Con d">HDL- Medical Cholesterol Center </content>115 MG/DL<content styleCode="Katie lics"> (> 60 MG/DL)</conten t> ID Date Data Source HematologyRou.[id number] 09/03/2018 11:54:00 AM EDT Tim [facility] 0400 Name Value Range Interpretation [...] (0.0 KCUMM)</content > ID Date Data Source GFR(Creatinine).[id number] 09/03/2018 11:54:00 AM EDT Tim [facility] 0-0400 Name Value Range Interpretation Code Description Data Yue rce(s) Supporting Document(s ) UNK > 60 <content [facility] styleCode="Bold"> Medical Cent er EGFR </content>143 GFR<content styleCode="Italic s"> (> 60 GFR)</content> ID Date Data Source Coagulation 09/03/2018 11:54:00 AM [facility] Rout.[id number] EDT Name Value Range Interpretation Description Data [...] <content [facility] limits styleCode="Bold" Con >D-Dimer Medical </content><[facility] nt styleCode="Bold" >719 ngFEU HH</content><con tent styleCode="Itali cs"> (< 500 ngFEU)</content> ID Date Data Source CardiacMarkers.[id number] 09/03/2018 11:54:00 AM EDT [facility] -0400 Name Value Range Interpretation Description [...] 0.034 NG/ML)</content > ID Date Data Source BMP.[id number] 09/03/2018 11:54:00 AM EDT [facility] Name Value Range Interpretation Description Data Sup porting Code Source(s) Document(s ) Carbon 22-30 <content Saint dioxide, total styleCode="Reuebn Con [Moles/volume] d">Carbon Medical in Serum or [...] Source Coagulation Rout 03/16/2018 12:41:00 PM EST [facility] Name Value Range Interpretation Description [...] Source Liver Profile 03/16/2018 05:15:00 AM EST [facility] Name Value Range Interpretation Description [...] Data Source CHMROUTINECCDA 03/16/2018 05:15:00 AM EST [facility] Name Value Range Interpretation Description [...] Date Data Source CardiacMarkers 03/15/2018 07:00:00 PM [facility] Name Value Range Interpretation Code Description Data Yue rce(s) Supporting Document(s ) UNK 0-0.034 <content [facility] styleCode="Bold" Medical Cente r >Troponin 4HR </content>< 0.012 NG/ML<content styleCode="Itali cs"> (0-0.034 NG/ML)</content> ID Date Data Source Urinalysis 03/15/2018 06:25:00 PM [facility] Name Value Range Interpretation Description Data Sup porting Code Source(s) Document(s ) Glucose NEGATIVE <content Saint [Mass/volume] styleCode="Reuben Andujar in Urine by d">Urine Medical Test strip Glucose Center </content>NEGA TIVE MG/DL<content styleCode="Katie lics"> (NEGATIVE MG/DL)</conten t> UNK NEGATIVE <content Saint styleCode="Reuben Cno d">Urine Medical Bilirubin Center </content>NEGA TIVE <content styleCode="Katie lics"> (NEGATIVE )</content> Color of Urine YELLOW <content Saint styleCode="Reuben Con d">Color, Medical Urine Center </content>YELL OW <content styleCode="Ktaie lics"> (YELLOW )</content> Ketones NEGATIVE <content Saint [...] by Test d">Urine Medical strip Specific [facility] [place] </content>1.01 0 NM L<content styleCode="Katie lics"> (1.015-1.025 [...] Data Source Stools 03/15/2018 05:57:00 PM EST [facility] Name Value Range Interpretation Code Description Data Yue rce(s) Supporting Document(s ) UNK NEGATIVE <content [facility] styleCode="Bold" Medical Cente r >Guaiac, Occult Blood </content>NEGATI VE <content styleCode="Itali cs"> (NEGATIVE )</content> ID Date Data Source LIPID 03/15/2018 03:20:00 PM EST [facility] Name Value Range Interpretation Description Data Sup porting Code Source(s) Document(s ) Triglyceride < 150 <content [facility] [Mass/volume] in styleCode="[facility] Serum or Plasma d">Triglycerid Medical es Center </content>141 MG/DL<content styleCode="Katie lics"> (< 150 MG/DL)</conten t> UNK > 60 <content [facility] styleCode="[facility] d">HDL- Medical Cholesterol Center </content>103 MG/DL<content styleCode="Katie lics"> (> 60 MG/DL)</conten t> Cholesterol -<200 Above high normal <content [facility] [Mass/volume] in styleCode="[facility] Serum or Plasma d">Cholesterol Medical </content>215 Center MG/DL H<content styleCode="Katie lics"> (-<200 MG/DL)</conten t> UNK < 100 <content [facility] styleCode="[facility] d">LDL-Chol[facility] [place] </content>84 MG/DL<content styleCode="Katie lics"> (< 100 MG/DL)</conten t> ID Date Data Source HematologyRou 03/05/2018 01:58:00 PM EST [facility] Name Value Range Interpretation Description [...] mean 80.0-100 <content [facility] corpuscular .0 styleCode="Bold Cno volume [Entitic ">Mean Medical volume] by Corpuscular [...] Data Source GFR(Creatinine) 03/05/2018 01:58:00 PM EST [facility] Name Value Range Interpretation Code Description Data Yue rce(s) Supporting Document(s ) UNK > 60 <content [facility] styleCode="Bold"> Medical Cent er EGFR </content>103 GFR<content styleCode="Italic s"> (> 60 GFR)</content> UNK > 60 <content [facility] styleCode="Bold"> Medical Cent er EGFR </content>103 GFR<content styleCode="Italic s"> (> 60 GFR)</content> UNK > 60 <content [facility] styleCode="Bold"> Medical Cent er EGFR </content>120 GFR<content styleCode="Italic s"> (> 60 GFR)</content> ID Date Data Source BMP 03/05/2018 01:58:00 PM EST [facility] Name Value Range Interpretation Description [...] completed NEXTGEN (Tim nt Details 12:00:00 AM [facility]) Smoking 11/29/2019 Unknown if ever completed Unknown if ever NEXT GEN (Saint 12:00:00 AM smoked smoked [facility]) Alcohol Use 10/17/2019 completed beer 2 beers NEXTGEN (Sa int Details 12:00:00 AM weekly [facility]) 10/17/2019 Cigarette completed Cigarette smoker NEXTGEN (Saint 12:00:00 AM smoker [facility]) Caffeine Use 09/06/2019 completed NEXTGEN (Tim nt Details 12:00:00 AM [facility]) Smoking 04/20/2019 Daily Smoker completed Daily Smoker [facility] 02:46:00 PM Medical Cente r EST Smoking [...] Daily Smoker completed Daily Smoker [facility] 01:25:00 PM Medical Cente r EST Smoking Unknown if ever completed Unknown if ever Allison Andujar smoked smoked [facility] Smoking Unknown if ever completed Unknown if ever [facility] smoked smoked [facility] Vital Signs ID Date Data Source UNK Name Value Range Interpretation Code Description Data Source(s) Oxygen 98 % 98 % NEXTGEN saturation in ([facility] oxim[facility]) Body mass index 26.40 kg/m2 Overweight 26.40 kg/m2 NEXTGEN (BMI) [Ratio] ([facility]) Respiratory rate 20 /min 20 /min NEXTGEN ([facility]) Body temperature 36.17 Lisa 36.17 Lisa [facility] Heart rate 75 /min 75 /min [facility]) Diastolic blood 88 mm[Hg] 88 mm[Hg] NEXTGEN pressure ([facility]) Systolic blood 137 mm[Hg] 137 mm[Hg] NEXTGEN pressure ([facility]) Body weight 81.102 kg 81.102 kg [facility] ([facility]) Body height 175.26 cm 175.26 cm [facility] ([facility]) Oxygen 99 % 99 % NEXTGEN saturation in ([facility]) Body mass index 26.29 kg/m2 Overweight 26.29 kg/m2 NEXTGEN (BMI) [Ratio] ([facility]) Respiratory rate 18 /min 18 /min [facility] ([facility]) Body temperature 36.50 Lisa 36.50 Lisa [facility]) Heart rate 88 /min 88 /min [facility]) Diastolic blood 85 mm[Hg] 85 mm[Hg] NEXTGEN pressure ([facility]) Systolic blood 121 mm[Hg] 121 mm[Hg] NEXTGEN pressure ([facility]) Body weight 80.739 kg 80.739 kg [facility] ([facility]) Body height 175.26 cm 175.26 cm [facility] ([facility]) Body temperature 36.629801 Lisa 36.698519 Lisa [facility] Respiratory rate 19 /min 19 /min [facility] Oxygen 98 % 98 % [place] saturation in Medical Arterial blood Center by Pulse oximetry Heart rate 78 /min 78 /min [facility] Diastolic blood 80 mm[Hg] 80 mm[Hg] [facility] pressure Medical Center Systolic blood 140 mm[Hg] 140 mm[Hg] [facility] Medical Center Body weight 81.645475 kg 81.264641 kg [facility] Respiratory rate 18 /min 18 /min [facility] Center Oxygen 98 % 98 % [place] saturation in Medical Arterial blood Center by Pulse oximetry Heart rate 96 /min 96 /min [facility] Body height 175.169717 cm 175.078491 cm [facility] Diastolic blood mm[Hg] [facility] pressure Medical Center Systolic blood mm[Hg] [facility] Medical Center Body mass index 26.5 kg/m2 26.5 kg/m2 [facility] (BMI) [Ratio] Medical Center Body weight 75.545929 kg 75.470562 kg [facility] Body temperature 36.685383 Lisa 36.767423 Lisa [facility] Respiratory rate 18 /min 18 /min [facility] Center Oxygen 98 % 98 % [place] saturation in Medical Arterial blood Center by Pulse oximetry Heart rate 99 /min 99 /min [facility] Body height 175.224149 cm 175.099889 cm [facility] Diastolic blood 82 mm[Hg] 82 mm[Hg] [facility] pressure Medical Center Systolic blood 147 mm[Hg] 147 mm[Hg] [facility] pressure Medical Center Body mass index 24.4 kg/m2 24.4 kg/m2 [facility] (BMI) [Ratio] Medical Center Diastolic blood 97 mmHg 97 mmHg [facility] Systolic blood 144 mmHg 144 mmHg [facility] Respiratory rate 18 bpm 18 bpm [facility] Heart rate 90 bpm 90 bpm [facility] Body temperature 98.2 Fahrenheit 98.2 Fahrenhei t [facility] Diastolic blood 94 mmHg 94 mmHg [facility] Systolic blood 157 mmHg 157 mmHg [facility] Respiratory rate 18 bpm 18 bpm [facility] Heart rate 111 bpm 111 bpm [facility] Body temperature 99.7 Fahrenheit 99.7 Fahrenhei t [facility] Diastolic blood 89 mmHg 89 mmHg [facility] Systolic blood 132 mmHg 132 mmHg [facility] Respiratory rate 18 bpm 18 bpm [facility] Heart rate 106 bpm 106 bpm [facility] Body temperature 99.0 Fahrenheit 99.0 Fahrenhei t [facility] Diastolic blood 86 mmHg 86 mmHg [facility] Systolic blood 142 mmHg 142 mmHg [facility] Respiratory rate 18 bpm 18 bpm [facility] Heart rate 87 bpm 87 bpm [facility] Body temperature 96.2 Fahrenheit 96.2 Fahrenhei t [facility] Diastolic blood 83 mmHg 83 mmHg [facility] Systolic blood 137 mmHg 137 mmHg [facility] Respiratory rate 18 bpm 18 bpm [facility] Heart rate 86 bpm 86 bpm [facility] Body temperature 98.5 Fahrenheit 98.5 Fahrenhei t [facility] Diastolic blood 86 mmHg 86 mmHg [facility] Systolic blood 147 mmHg 147 mmHg [facility] Respiratory rate 18 bpm 18 bpm [facility] Heart rate 91 bpm 91 bpm [facility] Body temperature 98.0 Fahrenheit 98.0 Fahrenhei t [facility] Diastolic blood 81 mmHg 81 mmHg [facility] Systolic blood 133 mmHg 133 mmHg [facility] Respiratory rate 18 bpm 18 bpm [facility] Heart rate 85 bpm 85 bpm [facility] Body temperature 98.1 Fahrenheit 98.1 Fahrenhei t [facility] Diastolic blood 84 mmHg 84 mmHg [facility] Systolic blood 130 mmHg 130 mmHg [facility] Respiratory rate 18 bpm 18 bpm [facility] Heart rate 96 bpm 96 bpm [facility] Body temperature 98.3 Fahrenheit 98.3 Fahrenhei t [facility] Body weight 170 lbs 170 lbs [facility] Diastolic blood 86 mmHg 86 mmHg [facility] Systolic blood 123 mmHg 123 mmHg [facility] Respiratory rate 16 bpm 16 bpm [facility] Heart rate 100 bpm 100 bpm [facility] Body temperature 99.6 Fahrenheit 99.6 Fahrenhei t [facility] Body weight 170 lbs 170 lbs [facility] Diastolic blood 86 mmHg 86 mmHg [facility] Systolic blood 123 mmHg 123 mmHg [facility] Respiratory rate 16 bpm 16 bpm [facility] Heart rate 100 bpm 100 bpm [facility] Body temperature 99.6 Fahrenheit 99.6 Fahrenhei t [facility] Diastolic blood 90 mmHg 90 mmHg [facility] Systolic blood 126 mmHg 126 mmHg [facility] Respiratory rate 18 bpm 18 bpm [facility] Heart rate 84 bpm 84 bpm [facility] Body temperature 98.6 Fahrenheit 98.6 Fahrenhei t [facility] Diastolic blood 85 mmHg 85 mmHg [facility] Systolic blood 155 mmHg 155 mmHg [facility] Respiratory rate 18 bpm 18 bpm [facility] Heart rate 91 bpm 91 bpm [facility] Body temperature 97.5 Fahrenheit 97.5 Fahrenhei t [facility] Diastolic blood 75 mmHg 75 mmHg [facility] Systolic blood 116 mmHg 116 mmHg [facility] Respiratory rate 16 bpm 16 bpm [facility] Heart rate 100 bpm 100 bpm [facility] Body temperature 98.6 Fahrenheit 98.6 Fahrenhei t [facility] Diastolic blood 91 mmHg 91 mmHg [facility] Systolic blood 136 mmHg 136 mmHg [facility] Respiratory rate 18 bpm 18 bpm [facility] Heart rate 91 bpm 91 bpm [facility] Body temperature 98.2 Fahrenheit 98.2 Fahrenhei t [facility] Diastolic blood 95 mmHg 95 mmHg [facility] Systolic blood 151 mmHg 151 mmHg [facility] Respiratory rate 18 bpm 18 bpm [facility] Heart rate 97 bpm 97 bpm [facility] Body temperature 98.6 Fahrenheit 98.6 Fahrenhei t [facility] Diastolic blood 73 mmHg 73 mmHg [facility] Systolic blood 111 mmHg 111 mmHg [facility] Respiratory rate 18 bpm 18 bpm [facility] Heart rate 94 bpm 94 bpm [facility] Body weight 168 lbs 168 lbs [facility] Diastolic blood 82 mmHg 82 mmHg [facility] Systolic blood 131 mmHg 131 mmHg [facility] Respiratory rate 18 bpm 18 bpm [facility] Heart rate 80 bpm 80 bpm [facility] Body temperature 98.5 Fahrenheit 98.5 Fahrenhei t [facility] Diastolic blood 90 mmHg 90 mmHg [facility] Systolic blood 132 mmHg 132 mmHg [facility] Respiratory rate 18 bpm 18 bpm [facility] Heart rate 95 bpm 95 bpm [facility] Body temperature 97.8 Fahrenheit 97.8 Fahrenh t [facility] Diastolic blood 88 mmHg 88 mmHg [facility] Systolic blood 130 mmHg 130 mmHg [facility] Respiratory rate 18 bpm 18 bpm [facility] Heart rate 100 bpm 100 bpm [facility] Body temperature 98.0 Fahrenheit 98.0 Fahrenhei t [facility] Body temperature 35.418351 Lisa 35.522822 Lisa [facility] Respiratory rate 18 /min 18 /min [facility] Heart rate 85 /min 85 /min [facility] Diastolic blood 81 mm[Hg] 81 mm[Hg] [facility] Systolic blood 125 mm[Hg] 125 mm[Hg] [facility] Body temperature 36.424109 Lisa 36.683261 Lisa [facility] Respiratory rate 18 /min 18 /min [facility] Oxygen 95 % 95 % [facility] saturation in Medical Arterial blood Center by Pulse oximetry Heart rate 83 /min 83 /min [facility] Diastolic blood 58 mm[Hg] 58 mm[Hg] [facility] Systolic blood 125 mm[Hg] 125 mm[Hg] [facility] Body temperature 36.068921 Lisa 36.743935 Lisa [facility] Respiratory rate 20 /min 20 /min [facility] Heart rate 95 /min 95 /min [facility] Diastolic blood 82 mm[Hg] 82 mm[Hg] [facility] Systolic blood 141 mm[Hg] 141 mm[Hg] [facility] Body temperature 36.607984 Lisa 36.376947 Lisa [facility] Respiratory rate 20 /min 20 /min [facility] Heart rate 81 /min 81 /min [facility] Diastolic blood 66 mm[Hg] 66 mm[Hg] [facility] Systolic blood 115 mm[Hg] 115 mm[Hg] [facility] Body temperature 37.267606 Lisa 37.489218 Lisa [facility] Respiratory rate 20 /min 20 /min [facility] Heart rate 76 /min 76 /min [facility] Diastolic blood 80 mm[Hg] 80 mm[Hg] [facility] Center Systolic blood 130 mm[Hg] 130 mm[Hg] [facility] Center Body weight 80.325256 kg 80.576601 kg [facility] Body height 175.487841 cm 175.446511 cm [facility] Body mass index 26.34 kg/m2 26.34 kg/m2 [facility] (BMI) [Ratio] Medical Center Body temperature 36.208181 Lisa 36.868763 Lisa [facility] Respiratory rate 20 /min 20 /min [facility] Heart rate 75 /min 75 /min [facility] Diastolic blood 97 mm[Hg] 97 mm[Hg] [facility] Medical [place] Systolic blood 134 mm[Hg] 134 mm[Hg] [facility] Body weight 80.031524 kg 80.937117 kg [facility] Body height 175.670680 cm 175.501899 cm [facility] Body mass index 26.34 kg/m2 26.34 kg/m2 [facility] (BMI) [Ratio] Medical Center Oxygen 96 % 96 % [facility] saturation in [facility] Arterial blood Center by Pulse oximetry Body temperature 36.729315 Lisa 36.182188 Lisa [facility] Respiratory rate 20 /min 20 /min [facility] Heart rate 95 /min 95 /min [facility] Diastolic blood 89 mm[Hg] 89 mm[Hg] [facility] Center Systolic blood 137 mm[Hg] 137 mm[Hg] [facility] Body weight 76.433881 kg 76.638258 kg [facility] Body height 175.334785 cm 175.392080 cm [facility] Body mass index 24.84 kg/m2 24.84 kg/m2 [facility] (BMI) [Ratio] Medical Center Body temperature 36.118190 Lisa 36.078610 Lisa [facility] Respiratory rate 18 /min 18 /min [facility] Heart rate 102 /min 102 /min [facility] Diastolic blood 78 mm[Hg] 78 mm[Hg] [facility] Center Systolic blood 126 mm[Hg] 126 mm[Hg] [facility] Center Oxygen 97 % 97 % [place] saturation in Medical Arterial blood Center by Pulse oximetry Body temperature 36.244138 Lisa 36.825259 Lisa [facility] Respiratory rate 18 /min 18 /min [facility] Heart rate 108 /min 108 /min [facility] Diastolic blood 73 mm[Hg] 73 mm[Hg] [facility] pressure Medical Center Systolic blood 117 mm[Hg] 117 mm[Hg] [facility] Medical Center Oxygen 98 % 98 % [place] saturation in Medical Arterial blood Center by Pulse oximetry Body temperature 36.849598 Lisa 36.498224 Lisa [facility] Respiratory rate 18 /min 18 /min [facility] Heart rate 103 /min 103 /min [facility] Diastolic blood 75 mm[Hg] 75 mm[Hg] [facility] Center Systolic blood 115 mm[Hg] 115 mm[Hg] [facility] Medical Center Body weight 72.488477 kg 72.366967 kg [facility] Oxygen 98 % 98 % [facility] saturation in Medical Arterial blood Center by Pulse oximetry Body height 175.039562 cm 175.935636 cm [facility] Body mass index 23.6 kg/m2 23.6 kg/m2 [facility] (BMI) [Ratio] Medical Center Body temperature 36.013991 Lisa 36.461988 Lisa [facility] Respiratory rate 20 /min 20 /min [facility] Heart rate 74 /min 74 /min [facility] Diastolic blood 78 mm[Hg] 78 mm[Hg] [facility] Center Systolic blood 115 mm[Hg] 115 mm[Hg] [facility] Center Body temperature 36.591883 Lisa 36.059835 Lisa [facility] Respiratory rate 20 /min 20 /min [facility] Heart rate 88 /min 88 /min [facility] Diastolic blood 70 mm[Hg] 70 mm[Hg] [facility] pressure Medical Center Systolic blood 117 mm[Hg] 117 mm[Hg] [facility] Center Body temperature 36.789577 Lsia 36.929880 Lisa [facility] Respiratory rate 20 /min 20 /min [facility] Heart rate 75 /min 75 /min [facility] Diastolic blood 84 mm[Hg] 84 mm[Hg] [facility] pressure Medical Center Systolic blood 127 mm[Hg] 127 mm[Hg] [facility] Center Systolic blood 133 mm[Hg] 133 mm[Hg] [facility] Center Body temperature 36.373251 Lisa 36.593020 Lisa [facility] Respiratory rate 20 /min 20 /min [facility] Heart rate 96 /min 96 /min [facility] Diastolic blood 84 mm[Hg] 84 mm[Hg] [facility] Center Body temperature 36.510654 Lisa 36.368906 Lisa [facility] Respiratory rate 20 /min 20 /min [facility] Heart rate 78 /min 78 /min [facility] Diastolic blood 89 mm[Hg] 89 mm[Hg] [facility] Center Systolic blood 132 mm[Hg] 132 mm[Hg] [facility] Body weight 81.924706 kg 81.737470 kg [facility] Body height 175.803683 cm 175.492523 cm [facility] Body mass index 26.52 kg/m2 26.52 kg/m2 [facility] (BMI) [Ratio] Medical Center Oxygen 97 % 97 % [facility] saturation in [facility] Arterial blood Center by Pulse oximetry Body temperature 36.550467 Lisa 36.482245 Lisa [facility] Respiratory rate 20 /min 20 /min [facility] Heart rate 87 /min 87 /min [facility] Diastolic blood 81 mm[Hg] 81 mm[Hg] [facility] Center Systolic blood 136 mm[Hg] 136 mm[Hg] [facility] Medical Center Body temperature 36.932446 Lisa 36.118925 Lisa [facility] Respiratory rate 18 /min 18 /min [facility] Heart rate 85 /min 85 /min [facility] Diastolic blood 83 mm[Hg] 83 mm[Hg] [facility] pressure Medical Center Systolic blood 125 mm[Hg] 125 mm[Hg] [facility] Center Body temperature 37.860732 Lisa 37.572204 Lisa [facility] Respiratory rate 18 /min 18 /min [facility] Heart rate 90 /min 90 /min [facility] Diastolic blood 83 mm[Hg] 83 mm[Hg] [facility] pressure Medical Center Systolic blood 123 mm[Hg] 123 mm[Hg] [facility] Center Body temperature 36.595161 Lisa 36.476861 Lisa [facility] Respiratory rate 20 /min 20 /min [facility] Heart rate 87 /min 87 /min [facility] Diastolic blood 87 mm[Hg] 87 mm[Hg] [facility] pressure Medical Center Systolic blood 136 mm[Hg] 136 mm[Hg] [facility] Center Body weight 81.165947 kg 81.819821 kg [facility] Oxygen 100 % 100 % [facility] saturation in Medical Arterial blood Center by Pulse oximetry Body height 175.384880 cm 175.340498 cm [facility] Body mass index 26.58 kg/m2 26.58 kg/m2 [facility] (BMI) [Ratio] Medical Center Body temperature 36.876568 Lisa 36.522026 Lisa [facility] Respiratory rate 19 /min 19 /min [facility] Heart rate 87 /min 87 /min [facility] Diastolic blood 98 mm[Hg] 98 mm[Hg] [facility] Center Systolic blood 151 mm[Hg] 151 mm[Hg] [facility] Center Oxygen 97 % 97 % [facility] saturation in Medical Arterial blood Center by Pulse oximetry Oxygen 98 % 98 % [facility] saturation in Medical Arterial blood Center by Pulse oximetry Body temperature 36.672686 Lisa 36.881085 Lisa [facility] Respiratory rate 17 /min 17 /min [facility] Oxygen 98 % 98 % [facility] saturation in Medical Arterial blood Center by Pulse oximetry Heart rate 78 /min 78 /min [facility] Diastolic blood 83 mm[Hg] 83 mm[Hg] [facility] pressure Medical Center Systolic blood 134 mm[Hg] 134 mm[Hg] [facility] Center Body weight 82.782504 kg 82.829343 kg [facility] Body temperature 36.418623 Lisa 36.406353 Lisa [facility] Respiratory rate 18 /min 18 /min [facility] Oxygen 98 % 98 % [place] saturation in Medical Arterial blood Center by Pulse oximetry Heart rate 78 /min 78 /min [facility] Body height 177.860977 cm 177.763860 cm [facility] Diastolic blood 82 mm[Hg] 82 mm[Hg] [facility] pressure Medical Center Systolic blood 144 mm[Hg] 144 mm[Hg] [facility] Center Body mass index 25.9 kg/m2 25.9 kg/m2 [facility] (BMI) [Ratio] Medical Center Body temperature 36.599821 Lisa 36.866138 Lisa [facility] Respiratory rate 20 /min 20 /min [facility] Center Heart rate 78 /min 78 /min [facility] Diastolic blood 78 mm[Hg] 78 mm[Hg] [facility] Center Systolic blood 158 mm[Hg] 158 mm[Hg] [facility] Center Body weight 90.073416 kg 90.010579 kg [facility] Body temperature 36.732108 Lisa 36.463684 Lisa [facility] Respiratory rate 18 /min 18 /min [facility] Oxygen 100 % 100 % [place] saturation in Medical Arterial blood Center by Pulse oximetry Heart rate 91 /min 91 /min [facility] Body height 175.758840 cm 175.897070 cm [facility] Diastolic blood 95 mm[Hg] 95 mm[Hg] [facility] pressure Medical Center Systolic blood 148 mm[Hg] 148 mm[Hg] [facility] Center Body mass index 29.3 kg/m2 29.3 kg/m2 [facility] (BMI) [Ratio] Medical Center Body temperature 36.965791 Lisa 36.007082 Lisa [facility] Respiratory rate 19 /min 19 /min [facility] Oxygen 98 % 98 % [place] saturation in Medical Arterial blood Center by Pulse oximetry Heart rate 70 /min 70 /min [facility] Diastolic blood 88 mm[Hg] 88 mm[Hg] [facility] pressure Medical Center Systolic blood 132 mm[Hg] 132 mm[Hg] [facility] Body temperature 36.331966 Lisa 36.442807 Lisa [facility] Respiratory rate 17 /min 17 /min [facility] Oxygen 98 % 98 % [facility] saturation in Medical Arterial blood Center by Pulse oximetry Heart rate 73 /min 73 /min [facility] Diastolic blood 92 mm[Hg] 92 mm[Hg] [facility] pressure Medical Center Systolic blood 143 mm[Hg] 143 mm[Hg] [facility] Body temperature 36.674527 Lisa 36.255995 Lisa [facility] Respiratory rate 16 /min 16 /min [facility] Oxygen 98 % 98 % [facility] saturation in Medical Arterial blood Center by Pulse oximetry Heart rate 92 /min 92 /min [facility] Diastolic blood 98 mm[Hg] 98 mm[Hg] [facility] Systolic blood 158 mm[Hg] 158 mm[Hg] [facility] Diastolic blood 85 mm[Hg] 85 mm[Hg] NEXTGEN pressure ([facility]) Systolic blood 143 mm[Hg] 143 mm[Hg] NEXTGEN pressure ([facility]) Oxygen 97 % 97 % NEXTGEN saturation in ([facility]) Body mass index 27.61 kg/m2 Overweight 27.61 kg/m2 NEXTGEN (BMI) [Ratio] ([facility]) Respiratory rate 19 /min 19 /min [facility] Body temperature 36.44 Lisa 36.44 Lisa NEXTGEN ([facility]) Heart rate 100 /min 100 /min NEXTGEN ([facility]) Diastolic blood 93 mm[Hg] 93 mm[Hg] NEXTGEN pressure ([facility]) Systolic blood 151 mm[Hg] 151 mm[Hg] NEXTGEN pressure ([facility]) Body weight 84.822 kg 84.822 kg [facility]) Body height 175.26 cm 175.26 cm [facility] ([facility]) Oxygen 99 % 99 % NEXTGEN saturation in ([facility]) Body mass index 27.11 kg/m2 Overweight 27.11 kg/m2 NEXTGEN (BMI) [Ratio] ([facility]) Respiratory rate 18 /min 18 /min [facility]) Body temperature 36.61 Lisa 36.61 Lsia [facility] ([facility]) Heart rate 86 /min 86 /min [facility] ([facility]) Diastolic blood 73 mm[Hg] 73 mm[Hg] [facility] pressure ([facility]) Systolic blood 126 mm[Hg] 126 mm[Hg] [facility] pressure ([facility]) Body weight 83.280 kg 83.280 kg [facility]) Body height 175.26 cm 175.26 cm [facility] ([facility]) Body temperature 36.237115 Lisa 36.201091 Lisa [facility] Respiratory rate 20 /min 20 /min [facility] Heart rate 80 /min 80 /min [facility] Diastolic blood 96 mm[Hg] 96 mm[Hg] [facility] Systolic blood 132 mm[Hg] 132 mm[Hg] [facility] Body temperature 36.029403 Lisa 36.024622 Lisa [facility] Respiratory rate 20 /min 20 /min [facility] Heart rate 75 /min 75 /min [facility] Diastolic blood 89 mm[Hg] 89 mm[Hg] [facility] Systolic blood 134 mm[Hg] 134 mm[Hg] [facility] Body temperature 36.149999 Lisa 36.587596 Lisa [facility] Respiratory rate 18 /min 18 /min [facility] Heart rate 73 /min 73 /min [facility] Diastolic blood 79 mm[Hg] 79 mm[Hg] [facility] Systolic blood 119 mm[Hg] 119 mm[Hg] [facility] Body temperature 36.999152 Lisa 36.814651 Lisa [facility] Respiratory rate 18 /min 18 /min [facility] Heart rate 79 /min 79 /min [facility] Diastolic blood 88 mm[Hg] 88 mm[Hg] [facility] Systolic blood 116 mm[Hg] 116 mm[Hg] [facility] Body temperature 37.989451 Lisa 37.046882 Lisa [facility] Respiratory rate 20 /min 20 /min [facility] Heart rate 77 /min 77 /min [facility] Diastolic blood 93 mm[Hg] 93 mm[Hg] [facility] Systolic blood 139 mm[Hg] 139 mm[Hg] [facility] Body temperature 37.021656 Lisa 37.524488 Lisa [facility] Respiratory rate 20 /min 20 /min [facility] Heart rate 81 /min 81 /min [facility] Diastolic blood 101 mm[Hg] 101 mm[Hg] [facility] [place] Systolic blood 151 mm[Hg] 151 mm[Hg] [facility] Body temperature 37.435710 Lisa 37.425202 Lisa [facility] Respiratory rate 18 /min 18 /min [facility] Heart rate 78 /min 78 /min [facility] Diastolic blood 91 mm[Hg] 91 mm[Hg] [facility] Systolic blood 131 mm[Hg] 131 mm[Hg] [facility] Body weight 85.890459 kg 85.345042 kg [facility] Body temperature 36.823158 Lisa 36.505582 Lisa [facility] Respiratory rate 20 /min 20 /min [facility] Heart rate 84 /min 84 /min [facility] Body height 177.120353 cm 177.044910 cm [facility] Diastolic blood 84 mm[Hg] 84 mm[Hg] [facility] Systolic blood 133 mm[Hg] 133 mm[Hg] [facility] Body mass index 26.92 kg/m2 26.92 kg/m2 [facility] (BMI) [Ratio] Medical Center Body temperature 36.628365 Lisa 36.386720 Lisa [facility] Respiratory rate 16 /min 16 /min [facility] Oxygen 100 % 100 % [facility] saturation in Medical Arterial blood Center by Pulse oximetry Heart rate 88 /min 88 /min [facility] Diastolic blood 87 mm[Hg] 87 mm[Hg] [facility] Systolic blood 152 mm[Hg] 152 mm[Hg] [facility] Body temperature 36.893981 Lisa 36.402750 Lisa [facility] Respiratory rate 18 /min 18 /min [facility] Oxygen 96 % 96 % [place] saturation in Medical Arterial blood Center by Pulse oximetry Heart rate 85 /min 85 /min [facility] Diastolic blood 104 mm[Hg] 104 mm[Hg] [facility] pressure [facility] Center Systolic blood 147 mm[Hg] 147 mm[Hg] [facility] pressure Medical Center Oxygen 98 % 98 % [facility] saturation in Medical Arterial blood [facility] by Pulse oximetry Oxygen 98 % 98 % [facility] saturation in Medical Arterial blood [facility] by [facility]ulse oximetry Body weight 81.635812 kg 81.990012 kg [facility] Measured [facility] Oxygen 99 % 99 % [place] saturation in Medical Arterial blood Center by Pulse oximetry Body height 175.037749 cm 175.760270 cm [facility] Body mass index 26.5 kg/m2 26.5 kg/m2 [facility] (BMI) [Ratio] Medical Center Body temperature 37.653021 Lisa 37.556762 Lisa [facility] Respiratory rate 18 /min 18 /min [facility] Oxygen 97 % 97 % [place] saturation in Medical Arterial blood Center by Pulse oximetry Heart rate 87 /min 87 /min [facility] Diastolic blood 91 mm[Hg] 91 mm[Hg] [facility] pressure [facility] Center Systolic blood 154 mm[Hg] 154 mm[Hg] [facility] pressure Medical Center ID Date Data Source [id number] 08/07/2019 04:05:00 PM EDT [facility] Name Value Range Interpretation Code Description Data Source(s) WEIGHT 80.739 kilos 80.739 kilos [facility] HEIGHT 175.3 centimeters 175.3 centimeters [facility] ID Date Data Source [id number] 06/20/2019 09:34:00 PM EDT [facility] Name Value Range Interpretation Code Description Data Source(s) WEIGHT 80.739 kilos 80.739 kilos [facility] HEIGHT 175.3 centimeters 175.3 centimeters [facility] ID Date Data Source [id number] 06/20/2019 07:29:00 PM EDT [facility] - [id number] [place] Name Value Range Interpretation Code Description Data Source(s) WEIGHT 80.739 kilos 80.739 kilos [facility] HEIGHT 175.3 centimeters 175.3 centimeters [facility] ID Date Data Source [id number] 06/20/2019 07:29:00 PM EDT [facility] - [id number] [place] Name Value Range Interpretation Code Description Data Source(s) WEIGHT 80.739 kilos 80.739 kilos [facility] HEIGHT 175.3 centimeters 175.3 centimeters [facility] ID Date Data Source [id number] 06/20/2019 07:28:00 PM EDT [facility] - [id number] [place] Name Value Range Interpretation Code Description Data Source(s) WEIGHT 80.739 kilos 80.739 kilos [facility] HEIGHT 175.3 centimeters 175.3 centimeters [facility] ID Date Data Source [id number] 06/20/2019 07:28:00 PM EDT [facility] - [id number] [place] Name Value Range Interpretation Code Description Data Source(s) WEIGHT 80.739 kilos 80.739 kilos [facility] HEIGHT 175.3 centimeters 175.3 centimeters [facility] ID Date Data Source [id number] 06/20/2019 07:14:00 PM EDT [facility] - [id number] [place] Name Value Range Interpretation Code Description Data Source(s) WEIGHT 80.739 kilos 80.739 kilos [facility] HEIGHT 175.3 centimeters 175.3 centimeters [facility] ID Date Data Source [id number] 06/20/2019 07:11:00 PM EDT [facility] - [id number] [place] Name Value Range Interpretation Code Description Data Source(s) WEIGHT 80.739 kilos 80.739 kilos [facility] HEIGHT 175.3 centimeters 175.3 centimeters [facility] ID Date Data Source [id number] 06/20/2019 07:09:00 PM EDT [facility] - [id number] [place] Name Value Range Interpretation Code Description Data Source(s) WEIGHT 80.739 kilos 80.739 kilos [facility] HEIGHT 175.3 centimeters 175.3 centimeters [facility] ID Date Data Source [id number] 06/20/2019 07:09:00 PM EDT [facility] - [id number] [place] Name Value Range Interpretation Code Description Data Source(s) WEIGHT 80.739 kilos 80.739 kilos [facility] HEIGHT 175.3 centimeters 175.3 centimeters [facility] ID Date Data Source [id number] 06/20/2019 07:04:00 PM EDT [facility] - [id number] [place] Name Value Range Interpretation Code Description Data Source(s) WEIGHT 80.739 kilos 80.739 kilos [facility] HEIGHT 175.3 centimeters 175.3 centimeters [facility] ID Date Data Source [id number] 06/20/2019 07:04:00 PM EDT [facility] - [id number] [place] Name Value Range Interpretation Code Description Data Source(s) WEIGHT 80.739 kilos 80.739 kilos [facility] HEIGHT 175.3 centimeters 175.3 centimeters [facility] ID Date Data Source [id number] 06/20/2019 07:03:00 PM EDT [facility] - [id number] [place] Name Value Range Interpretation Code Description Data Source(s) WEIGHT 80.739 kilos 80.739 kilos [facility] HEIGHT 175.3 centimeters 175.3 centimeters [facility] ID Date Data Source [id number] 06/20/2019 07:02:00 PM EDT [facility] - [id number] [place] Name Value Range Interpretation Code Description Data Source(s) WEIGHT 80.739 kilos 80.739 kilos [facility] HEIGHT 175.3 centimeters 175.3 centimeters [facility] ID Date Data Source [id number] 06/20/2019 07:02:00 PM EDT [facility] - [id number] [place] Name Value Range Interpretation Code Description Data Source(s) WEIGHT 80.739 kilos 80.739 kilos [facility] HEIGHT 175.3 centimeters 175.3 centimeters [facility] Patient Treatment Plan of Care Planned Activity Planned Date Details Description Data Source (s) atorvastatin 40 MG Oral 11/29/2019 12:00:00 [facility] ([facility]) atorvastatin 40 MG Oral 10/17/2019 12:00:00 [facility] Aspirin 81 MG Delayed 09/06/2019 12:00:00 [facility] ([facility] Oral Tablet [facility]) Chlorthalidone 25 MG Oral 09/06/2019 12:00:00 [facility] ([facility]) atorvastatin 20 MG Oral 09/06/2019 12:00:00 [facility] ([facility]) atorvastatin 20 MG Oral 09/06/2019 12:00:00 [facility] ([facility]) Thiamine 100 MG Oral 06/28/2019 12:00:00 [facility] MULTIVITAMIN 06/28/2019 12:00:00 [facility] (MULTI-VITAMIN DAILY) 1 AM [facility] EACH TABLET Methadone Hydrochloride 10 06/28/2019 12:00:00 [facility] 1 MG Oral 06/28/2019 12:00:00 [facility] Tablet [facility] rivaroxaban 20 MG Oral 03/31/2018 12:00:00 NEXT[facility] ([facility] Tablet [Xarelto] AM [facility] ical Center) Aspirin 81 MG Delayed NEXTGE N ([facility] Release Oral Tablet [facility]) atorvastatin 20 MG Oral NEXT GEN ([facility] Tablet [facility]) Methadone Hydrochloride NEXT GEN ([facility] 0.333 MG/ML Oral [facility] Med ical Suspension [facility]) Chlorthalidone 25 MG Oral NE XTGEN ([facility]) Varenicline Tartrate [facility] (Chantix) 1 Each Tab.ds.pk [place] Tab.ds.pk, 1 Tab Oral Amoxicillin 875 MG / [facility] Clavulanate 125 MG Oral [facility] Tablet Chlorthalidone [address] [facility] Tablet [facility] atorvastatin [address] [facility] [place] Tablet [Lipitor] [facility] Amoxicillin 875 MG / [facility] Clavulanate 125 MG Oral [facility] Tablet [Augmentin] Methadone Hydrochloride Allison [facility] Con 0.333 MG/ML Oral [facility] Suspension pantoprazole 40 MG Delayed S aint Con Release Oral Tablet [facility] Thiamine [address] [facility] Tablet [facility] multivit with min-folic Allison t Con acid ([employer] [facility] [address] [employer]in[employer]) 0.4 mg Tablet, Ordered By: DWIGHT Akersirections: 1 tablet oral daily Ibuprofen 600 MG [address] [facility] Tablet [facility] [place] Chlorthalidone 25 MG Oral Sa [facility] atorvastatin 20 MG Oral [facility] METHADONE 40 MG SOLUBLE Allison t Con TABLETDirections: oral [facility] CHLORTHALIDONE [address] [facility] TABLETDirections: oral [facility] ATORVASTATIN [address] [facility] TABLETDirections: oral [facility] atorvastatin 20 MG Oral Allison t [facility] Tablet [facility] [place] Thiamine 100 MG Oral [facility] [place] multivit with min-folic Allison t Con acid ([employer]in[facility]) 0.4 mg Tablet, Ordered By: DWIGHT Akersirections: 1 tablet oral daily pantoprazole 40 MG Delayed S a[facility] Release Oral Tablet [facility] [place] Methadone Hydrochloride Allison t Con 0.333 MG/ML Oral [facility] Suspension [Methadose] Ibuprofen 600 MG Oral [facility] Tablet [facility] Chlorthalidone 25 MG Oral Sa int [facility] Tablet [facility] Indomethacin 50 MG Oral [facility] Capsule [facility] Naproxen sodium 275 MG [facility] Tablet [facility] Amoxicillin 875 MG / [facility] Clavulanate 125 MG Oral [facility] Tablet methodone [facility] Methadone Hydrochloride Allison t Con 0.333 MG/ML Oral [facility] Suspension rivaroxaban 15 MG Oral [facility] Tablet [Xarelto] [facility] Chlorthalidone 25 MG Oral Sa int [facility] Tablet [facility] atorvastatin 20 MG Oral Allison t [facility] Tablet [facility] [place] Aspirin 81 MG Chewable [facility] apixaban 5 MG Oral Tablet NE XTGEN ([facility] [[facility]] [facility])
--- NOTE | 2019-12-11 18:28 | PN ---
Teaching Attending Note Name of Resident: Korin Gutierrez ATTENDING PHYSICIAN STATEMENT I saw and evaluated the patient. I reviewed the resident's note and discussed the case with the resident. I agree with the resident's findings and plan as documented. SUBJECTIVE: Feels okay - wants to be admitted for detox. OBJECTIVE: Afebrile, Hemodynamicaly stable. Mild tremor outstretched arms, some tongue fasciculation. Last Vital Signs Temp Pulse Resp BP Pulse Ox 97.5 F L 78 18 125/88 98 12/11/19 12:20 12/11/19 18:17 12/11/19 18:17 12/11/19 18:17 12/11/19 18:17 HEENT - Atraumatic, Normocephalic. Heart - S1, S2, RRR Lungs - clear to auscultation Abdomen - Soft, non-tender. Bowel Sounds normal. Extremities - No edema, no calf tenderness. Neuro - AAO x 3. Tone/Power normal. Mild tremor outstretched arms, some tongue fasciculation. Laboratory Results - last 24 hr 12/11/19 12/11/19 12/11/19 13:44 13:53 13:53 WBC 7.2 RBC 3.91 L Hgb 12.0 Hct 35.7 MCV 91.5 MCH 30.6 MCHC 33.4 RDW 15.0 Plt Count 441 H D MPV 7.0 L D Absolute Neuts (auto) 3.8 Neutrophils % 53.3 Lymphocytes % 37.7 D Monocytes % 5.1 Eosinophils % 2.7 Basophils % 1.2 Nucleated RBC % 0 Sodium 144 Potassium 3.4 L Chloride 106 Carbon Dioxide 28 Anion Gap 10 BUN 7.8 Creatinine 0.5 L Est GFR (CKD-EPI)AfAm 129.96 Est GFR (CKD-EPI)NonAf 112.13 Random Glucose 98 Calcium 8.6 Total Bilirubin 0.3 AST 123 H ALT 128 H Alkaline Phosphatase 124 H Ammonia 20.80 Total Protein 6.6 Albumin 2.8 L Urine Color Urine Appearance Urine pH Ur Specific [place] Urine Protein Urine Glucose (UA) Urine Ketones Urine Blood Urine Nitrite Urine Bilirubin Urine Urobilinogen Ur Leukocyte Esterase 12/11/19 14:00 WBC RBC Hgb Hct MCV MCH MCHC RDW Plt Count MPV Absolute Neuts (auto) Neutrophils % Lymphocytes % Monocytes % Eosinophils % Basophils % Nucleated RBC % Sodium Potassium Chloride Carbon Dioxide Anion Gap BUN Creatinine Est GFR (CKD-EPI)AfAm Est GFR (CKD-EPI)NonAf Random Glucose Calcium Total Bilirubin AST ALT Alkaline Phosphatase Ammonia Total Protein Albumin Urine Color Yellow Urine Appearance Clear Urine pH 5.5 Ur Specific [place] 1.016 Urine Protein Trace Urine Glucose (UA) Negative Urine Ketones Negative Urine Blood Negative Urine Nitrite Negative Urine Bilirubin Negative Urine Urobilinogen 0.2 Ur Leukocyte Esterase Negative Current Medications Generic Name Dose Route Start Last Admin Trade Name Chely PRN Reason Stop Dose Admin Enoxaparin Sodium 40 mg 12/11/19 18:15 Lovenox - SQ DAILY [facility] Sodium Chloride 1,000 mls @ 75 mls/hr 12/11/19 18:15 Normal Saline - IV ASDIR [facility] Multivitamins/Minerals 15 ml 12/11/19 18:30 Certavite-Antioxidant Liquid PO DAILY [facility] Thiamine HCl 200 mg 12/11/19 18:30 Vitamin B1 Injection - IVPB DAILY [facility] Home Medications Medication Instructions Recorded Atorvastatin Ca [Lipitor] 20 mg PO HS 09/22/18 Chlorthalidone 25 mg PO DAILY 09/22/18 Pantoprazole Sodium [Protonix -] 40 mg PO DAILY tablet.ec 09/22/18 Aspirin [ASA -] 81 mg PO DAILY 11/27/19 Methadone [Dolophine -] 40 mg PO DAILY 11/27/19 ASSESSMENT AND PLAN: 68 year old male with HTN, HLD, History of PE (previously on Xarelto - 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 1. Acute Toxic Encephalopathy secondary to Acute Alcohol Intoxication CT head - no acute findings. Confusion appears to have resolved. Mild signs of acute withdrawal at this time, will monitor - Ativan as per [facility] protocol. Banana Bag MVI, Thiamine, Folic Acid Addiction medicine consult - request for transfer to [facility] in AM. Patient agrees. 2. Polysusbstance Abuse - (Heroin -on Methadone, Alcohol) Addiction Medicine Consult - amenable to detox at [facility]. Methadone dose confirmation in AM. 3. Alcoholic Hepatitis Chronically elevated Transaminases Abdo US 09/23 - Diffuse hepatic steatosis, no evidence of acute cholecystitis or cholelithiasis. MRCP 7/20 - fatty liver, no intra- or extra-hepatic biliary dilatation. Hepatitis panel requested. 4. Peripheral Neuropathy sec to Alcohol excess - abstinence advised. 5. Hypokalemia - repleted. Will check Mg/Phos levels. 6. Macrocytosis sec to Alcohol excess. B12 level 1299, Folate 33 7. Hx PE - prevously on Xarelto - patient reports that this was discontinued by cardiology at [facility] - will obtain records and consult for further guidance. 8. HTN - on Chlorthalidone. 9. HLD - Atorvastatin held due to elevated transaminases. 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 DVT Px - Lovenox SQ pending clarification on Xarelto.
[2019-12-11] MEDS ORDERED: THIAMINE HCL 200 MG/2 ML VIAL IVPB SCH (18:30)
[2019-12-11] MEDS ORDERED: FOLIC ACID INJECTION - 1 MG, THIAMINE HCL 100 MG, MULTIVIT INJECTION ADULT 10 ML in SOD... IVPB ONE (18:40)
--- NOTE | 2019-12-11 18:40 | HP ---
CHIEF COMPLAINT: Altered mental status PCP: HISTORY OF PRESENT ILLNESS: Pt is a 69 year old M with PMHx of HTN, HLD, PE, alcohol abuse presenting to the ED with altered mental status. Pt states he drinks 1-2 pints of Pastora per day, and his last drink was earlier this morning. 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 Pt states he has been binge drinking since returning home from detox. Pt states he has been drinking large amounts of pastora every day for many years. Pt states he lives alone at home, but his brother lives nearby and checks in on him. Pt denies any falls, LOC, trauma to the head, nausea/vomiting, diarrhea/constipation, auditory or visual hallucinations. Pt states he has not used heroin in over 10 years, but is on withdrawal protocol. Pt states he has had withdrawals in the past, tremors, hallucinations but denies seizures. ER course was notable for: (1) Librium, methadone (2) K+ 3.4; repleted (3) CT head negative Recent Travel: Denies PAST MEDICAL HISTORY: As in HPI PAST SURGICAL HISTORY: Meniscus surgery Social History: Smoking: Quit 20 years ago Alcohol: One-two pint Pastora per day Drugs: Former heroin user Allergies No Known Allergies Allergy (Verified 12/11/19 12:24) HOME MEDICATIONS: Home Medications Medication Instructions Recorded Atorvastatin Ca [Lipitor] 20 mg PO HS 09/22/18 Chlorthalidone 25 mg PO DAILY 09/22/18 Pantoprazole Sodium [Protonix -] 40 mg PO DAILY tablet.ec 09/22/18 Aspirin [ASA -] 81 mg PO DAILY 11/27/19 Methadone [Dolophine -] 40 mg PO DAILY 11/27/19 REVIEW OF SYSTEMS CONSTITUTIONAL: Absent: fever, chills, diaphoresis, generalized weakness, malaise, loss of appetite, weight change HEENT: Absent: rhinorrhea, nasal congestion, throat pain, throat swelling, difficulty swallowing, mouth swelling, ear pain, eye pain, visual changes CARDIOVASCULAR: Absent: chest pain, syncope, palpitations, irregular heart rate, lightheadedness, peripheral edema RESPIRATORY: Absent: cough, shortness of breath, dyspnea with exertion, orthopnea, wheezing, stridor, hemoptysis GASTROINTESTINAL: Absent: abdominal pain, abdominal distension, nausea, vomiting, diarrhea, constipation, melena, hematochezia GENITOURINARY: Absent: dysuria, frequency, urgency, hesitancy, hematuria, flank pain, genital pain MUSCULOSKELETAL: Absent: myalgia, arthralgia, joint swelling, back pain, neck pain SKIN: Absent: rash, itching, pallor HEMATOLOGIC/IMMUNOLOGIC: Absent: easy bleeding, easy bruising, lymphadenopathy, frequent infections ENDOCRINE: Absent: unexplained weight gain, unexplained weight loss, heat intolerance, cold intolerance NEUROLOGIC: Absent: headache, focal weakness or paresthesias, dizziness, unsteady gait, seizure, mental status changes, bladder or bowel incontinence PSYCHIATRIC: Absent: anxiety, depression, suicidal or homicidal ideation, hallucinations. PHYSICAL EXAMINATION Vital Signs - 24 hr 12/11/19 12/11/19 12/11/19 12:20 12:39 14:39 Temperature 97.5 F L Pulse Rate 95 H Pulse Rate [ 84 Apical] Respiratory 16 20 Rate Blood Pressure 94/65 Blood Pressure 94/65 [Right Arm] O2 Sat by Pulse 92 L 89 L 97 Oximetry (%) 12/11/19 18:17 Temperature Pulse Rate Pulse Rate [ 78 Apical] Respiratory 18 Rate Blood Pressure Blood Pressure 125/88 [Right Arm] O2 Sat by Pulse 98 Oximetry (%) GENERAL: Awake, alert, and fully oriented, in no acute distress. HEAD: Normal with no signs of trauma. Tongue fasciculations. EYES: Pupils equal, round and reactive to light, extraocular movements intact, sclera anicteric, conjunctiva clear. No lid lag. EARS, NOSE, THROAT: Ears normal, nares patent, oropharynx clear without exudates. Moist mucous membranes. NECK: Normal range of motion, supple without lymphadenopathy, JVD, or masses. LUNGS: Breath sounds equal, clear to auscultation bilaterally. No wheezes, and no crackles. No accessory muscle use. HEART: Regular rate and rhythm, normal S1 and S2 without murmur, rub or gallop. ABDOMEN: Soft, nontender, not distended, normoactive bowel sounds, no guarding, no rebound, no masses. No hepatomegaly or splenomegaly. MUSCULOSKELETAL: Normal range of motion at all joints. No bony deformities or tenderness. No CVA tenderness. UPPER EXTREMITIES: 2+ pulses, warm, well-perfused. No cyanosis. No clubbing. No peripheral edema. Slight tremor. LOWER EXTREMITIES: 2+ pulses, warm, well-perfused. No calf tenderness. No peripheral edema. NEUROLOGICAL: Cranial nerves II-XII intact. Normal speech. Normal gait. PSYCHIATRIC: Cooperative. Good eye contact. Appropriate mood and affect. SKIN: Warm, dry, normal turgor, no rashes or lesions noted, normal capillary refill. Laboratory Results - last 24 hr 12/11/19 12/11/19 12/11/19 13:44 13:53 13:53 WBC 7.2 RBC 3.91 L Hgb 12.0 Hct 35.7 MCV 91.5 MCH 30.6 MCHC 33.4 RDW 15.0 Plt Count 441 H D MPV 7.0 L D Absolute Neuts (auto) 3.8 Neutrophils % 53.3 Lymphocytes % 37.7 D Monocytes % 5.1 Eosinophils % 2.7 Basophils % 1.2 Nucleated RBC % 0 Sodium 144 Potassium 3.4 L Chloride 106 Carbon Dioxide 28 Anion Gap 10 BUN 7.8 Creatinine 0.5 L Est GFR (CKD-EPI)AfAm 129.96 Est GFR (CKD-EPI)NonAf 112.13 Random Glucose 98 Calcium 8.6 Total Bilirubin 0.3 AST 123 H ALT 128 H Alkaline Phosphatase 124 H Ammonia 20.80 Total Protein 6.6 Albumin 2.8 L Urine Color Urine Appearance Urine pH Ur Specific [place] Urine Protein Urine Glucose (UA) Urine Ketones Urine Blood Urine Nitrite Urine Bilirubin Urine Urobilinogen Ur Leukocyte Esterase 12/11/19 14:00 WBC RBC Hgb Hct MCV MCH MCHC RDW Plt Count MPV Absolute Neuts (auto) Neutrophils % Lymphocytes % Monocytes % Eosinophils % Basophils % Nucleated RBC % Sodium Potassium Chloride Carbon Dioxide Anion Gap BUN Creatinine Est GFR (CKD-EPI)AfAm Est GFR (CKD-EPI)NonAf Random Glucose Calcium Total Bilirubin AST ALT Alkaline Phosphatase Ammonia Total Protein Albumin Urine Color Yellow Urine Appearance Clear Urine pH 5.5 Ur Specific [place] 1.016 Urine Protein Trace Urine Glucose (UA) Negative Urine Ketones Negative Urine Blood Negative Urine Nitrite Negative Urine Bilirubin Negative Urine Urobilinogen 0.2 Ur Leukocyte Esterase Negative ASSESSMENT/PLAN: Pt is a 69 year old M with PMHx of HTN, HLD, PE, alcohol abuse presenting to the ED with altered mental status admitted for acute metabolic toxic likely secondary to alcohol abuse. #Acute toxic encephalopathy likely 2/2 to acute alcohol intoxication -pt A&Ox2 on admission, resolved to A&Ox 3 -on methadone for heroin abuse, consulted Dr. Mendes (addiciton med) -Slight tremors, tongue fasciculations noted; started on Ativan protocol -AST/ALT elevated (123/128) -hep panel, alcohol level, Utox ordered -Previous Abdo U/S showing Diffuse hepatic steatosis, no evidence of acute cholecystitis or cholelithiasis -Previous MRCP showing fatty liver, no intra- or extra-hepatic biliary dilatation -banana bag, MVI, thiamine, folic acid -s/p EGD 09/05/17 - Stoner's, Gastritis, no active bleeding. #Hx PE -no acute signs/symptoms of PE -pt does not recall when he had PE -on Xarelto in the past, pt states he had it d/c by his cardiologists at [facility] 2-3 years prior; however it was continued last admission -consulted cardio (Dr. Upton) to evaluate pt and determine need to be on Xarelto #Macrocytic anemia -B12 1299; folate 33 -likely secondary to alcohol abuse #Hypokalemia -repleted -check Mg/P #Hx HTN -continue home chlorthalidone #Hx HLD -held statin due to elevated transaminases PPx Lovenox SQ pending clarification on Xarelto by Cardio FEN Monitor electrolytes Sodium controlled diet Dispo Admit med surg. ATTENDING PHYSICIAN STATEMENT I saw and evaluated the patient. I reviewed the resident's note and discussed the case with the resident. I agree with the resident's findings and plan as documented. SUBJECTIVE: OBJECTIVE: ASSESSMENT AND PLAN:
[2019-12-11] MEDS ORDERED: FOLIC ACID 1 MG TABLET (FP) PO SCH (18:45)
[2019-12-11 19:05] LABS: MAGNESIUM 1.5 mg/dL (1.8-2.4); PHOSPHOROUS 3.3 mg/dL (2.5-4.9)
[2019-12-11] MEDS ORDERED: LORazepam 1 MG TABLET ONE (19:20)
[2019-12-11] MEDS ORDERED: ENOXAPARIN NA (PORCINE) 40 MG/0.4 ML DISP.SYRIN SQ ONE (19:21)
[2019-12-11] MEDS: ENOXAPARIN NA (PORCINE) 40 MG/0.4 ML DISP.SYRIN SQ SCH (19:26)
[2019-12-11] MEDS: LORazepam 1 MG TABLET PO SCH ×2 (19:26→22:31)
[2019-12-11] MEDS: MULTIVIT-MINERALS ORAL LIQUID PO SCH (20:15)
[2019-12-11 20:37] LABS: COCAINE, UR NEGATIVE ng/ml (CUTOFF=300); OPIATES, URI NEGATIVE ng/ml (CUTOFF=300); PHENCYCLIDINE,URINE NEGATIVE ng/ml (CUTOFF=25); URINE AMPHETAMINES NEGATIVE ng/ml (CUTOFF=500); URINE BARBITURATES NEGATIVE ng/ml (CUTOFF=200)
[2019-12-11 20:38] LABS: URINE BENZODIAZEPINES POSITIVE ng/ml (CUTOFF=200)
[2019-12-11 20:39] LABS: METHADONE, UR POSITIVE ng/ml (CUTOFF=300)
[2019-12-11] MEDS: SODIUM CHLORIDE 1,000 ML IV SCH (22:37)
[2019-12-12] MEDS: LORazepam 1 MG TABLET PO PRN ×3 (00:40→17:42)
[2019-12-12 01:49] VITALS: BMI 25.8
[2019-12-12] MEDS: SODIUM CHLORIDE 1,000 ML IV SCH (03:58)
[2019-12-12] MEDS: LORazepam 1 MG TABLET PO SCH ×3 (05:15→16:01)
[2019-12-12] MEDS ORDERED: METHADONE HCL 10 MG TABLET PO SCH (08:15)
--- NOTE | 2019-12-12 08:22 | CONSULT ---
Consult Detox [facility] Reason for Current Admission/Consult: Alcohol intoxication - History History of Present Illness: Mr. Young was admitted to [facility] 12/10 for alcohol intoxication. He was last admitted to [facility] between 11/26 and 11/30, after he was escorted by his family to the facility and requesting detox admission for alcohol use. His family lifts him out of the care stating he is currently intoxicated. He was last here in Apr 2018 and completed detox. PMH: chronic knee pain PSH; Bilateral knee, meniscus repair, cane to ambulate Psych: denies SOC: lives alone in [place] Legal: none Substance Use History Alcohol Substance amount: one pint Jewels Frequency of use: Daily Substance route: Oral Date of Last Use: 11/27/19 (First use age 32 y. No seizures. No blackouts. 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) Nicotine Substance amount: 1-2 cigs Frequency of use: Less than 3 times per week Substance route: Smoking Date of Last Use: 11/13/19 Current Medications Generic Name Dose Route Start Last Admin Trade Name Freq PRN Reason Stop Dose Admin Aspirin 81 mg 12/12/19 10:00 Asa - PO DAILY RADHA Chlorthalidone 25 mg 12/12/19 10:00 [place] - PO DAILY RADHA Enoxaparin Sodium 40 mg 12/11/19 18:15 12/11/19 19:26 Lovenox - SQ 40 mg DAILY RADHA Administration Folic Acid 1 mg 12/12/19 18:45 Folic Acid - PO DAILY RADHA Sodium Chloride 1,000 mls @ 75 mls/hr 12/11/19 18:15 12/12/19 03:58 Normal Saline - IV 75 mls/hr ASDIR RADHA Administration Lorazepam 1 mg 12/13/19 05:00 Ativan - PO 12/13/19 23:01 0500,1100,1700,2300 RADHA Lorazepam 1 mg 12/11/19 18:45 12/12/19 00:40 Ativan - PO 12/12/19 18:44 1 mg Q4H PRN Administration Symptoms of Withdrawal Lorazepam 2 mg 12/11/19 17:00 12/12/19 05:15 Ativan - PO 12/12/19 23:01 2 mg 0500,1100,1700,2300 RADHA Administration Lorazepam 0.5 mg 12/14/19 05:00 Ativan - PO 12/14/19 23:01 Q6H RADHA Lorazepam 0.5 mg 12/14/19 00:00 Ativan - PO 12/15/19 00:00 Q4H PRN Symptoms of Withdrawal Lorazepam 0.5 mg 12/15/19 05:00 Ativan - PO 12/15/19 05:01 ONCE ONE Methadone HCl 30 mg 12/12/19 08:15 12/12/19 08:19 Dolophine - PO 30 mg DAILY@0600 RADHA Administration Multivitamins/Minerals 15 ml 12/11/19 18:30 12/11/19 20:15 Certavite-Antioxidant Liquid PO 15 ml DAILY RADHA Administration Pantoprazole Sodium 40 mg 12/12/19 10:00 Protonix - PO DAILY [facility] Thiamine HCl 200 mg 12/12/19 18:30 Vitamin B1 Injection - IVPB DAILY [facility] Laboratory Tests 12/11/19 12/11/19 12/11/19 13:44 13:53 13:53 WBC 7.2 RBC 3.91 L Hgb 12.0 Hct 35.7 MCV 91.5 MCH 30.6 MCHC 33.4 RDW 15.0 Plt Count 441 H D MPV 7.0 L D Absolute Neuts (auto) 3.8 Neutrophils % 53.3 Lymphocytes % 37.7 D Monocytes % 5.1 Eosinophils % 2.7 Basophils % 1.2 Nucleated RBC % 0 Sodium 144 Potassium 3.4 L Chloride 106 Carbon Dioxide 28 Anion Gap 10 BUN 7.8 Creatinine 0.5 L Est GFR (CKD-EPI)AfAm 129.96 Est GFR (CKD-EPI)NonAf 112.13 Random Glucose 98 Calcium 8.6 Phosphorus 3.3 Magnesium 1.5 L Total Bilirubin 0.3 AST 123 H ALT 128 H Alkaline Phosphatase 124 H Ammonia 20.80 Total Protein 6.6 Albumin 2.8 L Urine Color Urine Appearance Urine pH Ur Specific [place] Urine Protein Urine Glucose (UA) Urine Ketones Urine Blood Urine Nitrite Urine Bilirubin Urine Urobilinogen Ur Leukocyte Esterase Opiates Screen Methadone Screen Barbiturate Screen Phencyclidine Screen Ur Amphetamines Screen MDMA (Ecstasy) Screen Benzodiazepines Screen Cocaine Screen U Marijuana (THC) Screen Alcohol, Quantitative 341.5 H 12/11/19 12/11/19 14:00 19:50 WBC RBC Hgb Hct MCV MCH MCHC RDW Plt Count MPV Absolute Neuts (auto) Neutrophils % Lymphocytes % Monocytes % Eosinophils % Basophils % Nucleated RBC % Sodium Potassium Chloride Carbon Dioxide Anion Gap BUN Creatinine Est GFR (CKD-EPI)AfAm Est GFR (CKD-EPI)NonAf Random Glucose Calcium Phosphorus Magnesium Total Bilirubin AST ALT Alkaline Phosphatase Ammonia Total Protein Albumin Urine Color Yellow Urine Appearance Clear Urine pH 5.5 Ur Specific [place] 1.016 Urine Protein Trace Urine Glucose (UA) Negative Urine Ketones Negative Urine Blood Negative Urine Nitrite Negative Urine Bilirubin Negative Urine Urobilinogen 0.2 Ur Leukocyte Esterase Negative Opiates Screen Negative Methadone Screen Positive A* Barbiturate Screen Negative Phencyclidine Screen Negative Ur Amphetamines Screen Negative MDMA (Ecstasy) Screen Negative Benzodiazepines Screen Positive A* Cocaine Screen Negative U Marijuana (THC) Screen Negative Alcohol, Quantitative Vital Signs Temperature 98.2 F 12/12/19 06:00 Pulse Rate 61 12/12/19 06:00 Respiratory Rate 18 12/12/19 06:00 Blood Pressure 149/89 12/12/19 06:00 O2 Sat by Pulse Oximetry (%) 97 12/12/19 06:00 Per chart review: 1. Acute Toxic Encephalopathy secondary to Acute Alcohol Intoxication CT head - no acute findings. Confusion appears to have resolved. 2. Polysusbstance Abuse - Methadone dose confirmation in AM. 3. Alcoholic Hepatitis Chronically elevated Transaminases Abdo US 09/23 - Diffuse hepatic steatosis, no evidence of acute cholecystitis or cholelithiasis. MRCP 09/23 - fatty liver, no intra- or extra-hepatic biliary dilatation. Hepatitis panel requested. 4. Peripheral Neuropathy sec to Alcohol excess - abstinence advised. 5. Hypokalemia - repleted. Will check Mg/Phos levels. 6. Macrocytosis sec to Alcohol excess. B12 level 1299, Folate 33 7. Hx PE - prevously on Xarelto - patient reports that this was discontinued by cardiology at [facility] - will obtain records and consult for further guidance. 8. HTN - on Chlorthalidone. 9. HLD - Atorvastatin held due to elevated transaminases. 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 DVT Px - Lovenox SQ pending clarification on Xarelto. 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 No: Ascites Psych: Yes: Addictions (methadone , alcohol , marijuana ) Rheumatology: Yes: Other (B.l Knee pain ) Assessment Plan - Diagnosis (1) Methadone dependence Status: Acute (2) Alcohol intoxication Status: Acute - Plan Plan: 1. Please document CIWA 2. Continue Ativan protocol 3. Verify methadone dose 4. If medically stable, may transfer to [facility]: please call intake to check bed availability: extension [phone] - Medication Detox Regimen/Protocol: Ativan
--- NOTE | 2019-12-12 08:47 | EKG ---
Test Reason : Blood Pressure : / mmHG Vent. Rate : 086 BPM Atrial Rate : 086 BPM P-R Int : 200 ms QRS Dur : 098 ms QT Int : 392 ms P-R-T Axes : 036 020 059 degrees QTc Int : 469 ms NORMAL SINUS RHYTHM POSSIBLE LEFT ATRIAL ENLARGEMENT BORDERLINE ECG WHEN COMPARED WITH ECG OF 27-NOV-2019 10:14, NO SIGNIFICANT CHANGE WAS FOUND Confirmed by Luis M Upton MD ([id number]) on 12/12/2019 8:46:47 AM Referred By: Confirmed By:Luis M Upton MD
[2019-12-12] MEDS ORDERED: PT OWN MED DRAWER 7, Y5N ONE ×2 (09:00→09:58)
[2019-12-12 09:09] LABS: HEMATOCRIT 33.2 % (35.4-49); HEMOGLOBIN 11.2 GM/dL (11.7-16.9); MCHC 33.7 g/dl (32.0-35.9); MEAN CELL VOLUME 91.9 fl (80-96); MEAN PLT VOLUME 7.7 fl (7.5-11.1); PLATELET COUNT 380 K/MM3 (134-434); RBC 3.61 M/mm3 (4.00-5.60); WHITE BLOOD COUNT 7.7 K/mm3 (4.0-10.0)
--- NOTE | 2019-12-12 09:11 | CON.CARD ---
Consult Consult Specialty:: Cardiology Referred by:: Solis Reason for Consultation:: PE - History of Present Illness Chief Complaint: intoxication History of Present Illness: 69yo M smoker, h/o HTN, HLP, substance abuse who was admitted to [facility] 03/2018 for chest pain, SOB. Workup revealed an elevated D-dimer and a CTA chest showing small pulmonary emboli involving proximal segmental pulmonary arteries supplying the left upper and left lower lobes. Patient was started on heparin drip with resolution of symptoms. Denies any personal or family history of DVT/PE. Last colonoscopy 06/[address] negative[address] Reyna of hematology at [facility], started on Xarelto (favored lifelong). He was last seen by rex in Nov 2018, then was seen in the ER at [facility] May 2019 with a fall, head trauma and alcohol intoxication. While the documentation is sparse, the patient states that his Xarelto was stopped due to normal labs in November 2018. However, it is still on his medication list. Factor V Leiden neg, prothrombin mutation neg Antiphos panel neg Antithrombin III fun 103, protein C fun 164, protein S fun 142 03/17/18 ([facility]) HBsAg neg, HCV neg Imaging: Abd u/s 03/17/18 ([facility]): Echogenic liver most likely secondary to steatosis. It also measures at upper limits of normal. Duplex 03/16/18 ([facility]): No venous thrombosis identified CTA 03/15/18 ([facility]): [id number] cardiomegaly. Increased tortuosity and ectasia of the thoracic aorta. Generalized dilatation of the central pulmonary arteries without evidence of thrombus. Small pulmonary emboli involving proximal segmental pulmonary arteries supplying the left upper and left lower lobes. Mild hyperinflation of the lungs. No evidence of pneumothoraces or pulmonary infarction. Mildly prominent mediastinal and bilateral axillary lymph nodes. 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 No: Ascites Psych: Yes: Addictions (methadone , alcohol , marijuana ) Rheumatology: Yes: Other (B.l Knee pain ) - Alcohol/Substance Use Hx Alcohol Use: Yes Number of Drinks Daily: 1 (1.5 pind of Jewels , last use Yesterday ) History of Substance Use: reports: Heroin, Marijuana, Prescription (methadone ) Date of Last Use: 09/16/18 (Marijuana ) - Smoking History Smoking history: Former smoker Have you smoked in the past 12 months: Yes Aproximately how many cigarettes per day: 5 - Social History Usual Living Arrangement: Alone ADL: Independent Home Medications - Allergies Allergies/Adverse Reactions: Allergies Allergy/AdvReac Type Severity Reaction Status Date / Time No Known Allergies Allergy Verified 12/11/19 12:24 - Home Medications Home Medications: Ambulatory Orders Atorvastatin Ca [Lipitor] 20 mg PO HS 09/22/18 Chlorthalidone 25 mg PO DAILY 09/22/18 Pantoprazole Sodium [Protonix -] 40 mg PO DAILY tablet.ec 09/22/18 Aspirin [ASA -] 81 mg PO DAILY 11/27/19 Methadone [Dolophine -] 40 mg PO DAILY 11/27/19 Methadone [Dolophine -] 30 mg PO DAILY 12/12/19 Vital Signs: Vital Signs Temperature 98.2 F 12/12/19 06:00 Pulse Rate 61 12/12/19 06:00 Respiratory Rate 18 12/12/19 06:00 Blood Pressure 149/89 12/12/19 06:00 O2 Sat by Pulse Oximetry (%) 97 12/12/19 06:00 Constitutional: Yes: No Distress, Calm Eyes: Yes: Conjunctiva Clear, EOM Intact HENT: Yes: Atraumatic, Normocephalic Neck: Yes: Trachea Midline Respiratory: Yes: CTA Bilaterally Gastrointestinal: Yes: Normal Bowel Sounds, Soft Cardiovascular: Yes: Regular Rate and Rhythm JVD: No Carotid Bruit: No PMI: Non-Displaced Heart Sounds: Yes: S1, S2 Edema: No Peripheral Pulses WNL: Yes Imaging - Results Chest X-ray: Report Reviewed (braydon, metallic object) EKG: Report Reviewed (nsr lae no sttw changes.) Assessment/Plan 68yo M smoker, h/o HTN, HLP, substance abuse who was admitted to [facility] 03/2018 for chest pain, SOB. Workup revealed an elevated D-dimer and a CTA chest showing small pulmonary emboli involving proximal segmental pulmonary arteries supplying the left upper and left lower lobes. Patient was started on heparin drip with resolution of symptoms. Denies any personal or family history of DVT/PE. Last colonoscopy 06/2017 [address] negative[address] Reyna of hematology at [facility], started on Xarelto (favored lifelong). He was last seen by rex in Nov 2018, then was seen in the ER at [facility] May 2019 with a fall, head trauma and alcohol intoxication. While the documentation is sparse, this is likely when Xarelto was stopped. However, it is still on his medication list. Factor V Leiden neg, prothrombin mutation neg Antiphos panel neg Antithrombin III fun 103, protein C fun 164, protein S fun 142 03/17/18 ([facility]) HBsAg neg, HCV neg Imaging: Abd u/s 03/17/18 ([facility]): Echogenic liver most likely secondary to steatosis. It also measures at upper limits of normal. Duplex 03/16/18 ([facility]): No venous thrombosis identified CTA 03/15/18 ([facility]): [id number] cardiomegaly. Increased tortuosity and ectasia of the thoracic aorta. Generalized dilatation of the central pulmonary arteries without evidence of thrombus. Small pulmonary emboli involving proximal segmental pulmonary arteries supplying the left upper and left lower lobes. Mild hyperinflation of the lungs. No evidence of pneumothoraces or pulmonary infarction. Mildly prominent mediastinal and bilateral axillary lymph nodes. impression: -he has been treated for over 6 months for a first episode of unprovoked PE. -he has had falls and head trauma from alcohol intoxication. -would remain off of full dose, consider low dose prophylaxis if he is able to remain drug free. -follow up with Dr Reyna hematology at [facility] -will follow as needed.
[2019-12-12] MEDS: ENOXAPARIN NA (PORCINE) 40 MG/0.4 ML DISP.SYRIN SQ SCH (09:12)
[2019-12-12 09:32] LABS: ALBUMIN 2.8 g/dl (3.4-5.0); BILIRUBIN,TOTAL 0.8 mg/dL (0.2-1); CALCIUM 8.7 mg/dL (8.5-10.1); CREATININE 0.5 mg/dL (0.55-1.3); MAGNESIUM 1.3 mg/dL (1.8-2.4); PHOSPHOROUS 2.5 mg/dL (2.5-4.9); POTASSIUM 3.8 mmol/L (3.5-5.1); TOT PROT 6.4 g/dl (6.4-8.2)
[2019-12-12] MEDS ORDERED: ASPIRIN 81 MG CHEWABLE TABLETS PO SCH (10:00)
[2019-12-12] MEDS ORDERED: PANTOPRAZOLE 40 MG TABLET PO SCH (10:00)
[2019-12-12] MEDS ORDERED: CHLORTHALIDONE 25 MG TABLET PO SCH (10:00)
[2019-12-12] MEDS ORDERED: MAGNESIUM SULF 50% (8.12 MEQ/2 ML-1 GM VIAL) IVPB ONE (14:18)
--- NOTE | 2019-12-12 14:25 | PN ---
Teaching Attending Note Name of Resident: Korin Gutierrez ATTENDING PHYSICIAN STATEMENT I saw and evaluated the patient. I reviewed the resident's note and discussed the case with the resident. I agree with the resident's findings and plan as documented. SUBJECTIVE: Feels okay - reports tremor - no diaphoresis, palpitations, nausea, vomiting, hallucinations. Wants detox at . OBJECTIVE: Afebrile Tmax 99, Hemodynamicaly stable. Tremor outstretched arms,tongue fasciculation. Last Vital Signs Temp Pulse Resp BP Pulse Ox 99 F 84 18 149/92 97 12/12/19 10:00 12/12/19 10:00 12/12/19 10:00 12/12/19 10:12/12/19 10:00 HEENT - Atraumatic, Normocephalic. Heart - S1, S2, RRR Lungs - clear to auscultation Abdomen - Soft, non-tender. Bowel Sounds normal. Extremities - No edema, no calf tenderness. Neuro - AAO x 3. Tone/Power normal. Tremor outstretched arms, tongue fasciculation. Laboratory Results - last 24 hr 12/11/19 12/11/19 12/11/19 13:44 13:53 14:00 WBC RBC Hgb Hct MCV MCH MCHC RDW Plt Count MPV Sodium 144 Potassium 3.4 L Chloride 106 Carbon Dioxide 28 Anion Gap 10 BUN 7.8 Creatinine 0.5 L Est GFR (CKD-EPI)AfAm 129.96 Est GFR (CKD-EPI)NonAf 112.13 Random Glucose 98 Calcium 8.6 Phosphorus 3.3 Magnesium 1.5 L Total Bilirubin 0.3 AST 123 H ALT 128 H Alkaline Phosphatase 124 H Ammonia 20.80 Total Protein 6.6 Albumin 2.8 L Urine Color Yellow Urine Appearance Clear Urine pH 5.5 Ur Specific [place] 1.016 Urine Protein Trace Urine Glucose (UA) Negative Urine Ketones Negative Urine Blood Negative Urine Nitrite Negative Urine Bilirubin Negative Urine Urobilinogen 0.2 Ur Leukocyte Esterase Negative Opiates Screen Methadone Screen Barbiturate Screen Phencyclidine Screen Ur Amphetamines Screen MDMA (Ecstasy) Screen Benzodiazepines Screen Cocaine Screen U Marijuana (THC) Screen Alcohol, Quantitative 341.5 H 12/11/19 12/12/19 12/12/19 19:50 07:31 07:31 WBC 7.7 RBC 3.61 L Hgb 11.2 L Hct 33.2 L MCV 91.9 MCH 31.0 MCHC 33.7 RDW 15.0 Plt Count 380 MPV 7.7 Sodium 138 Potassium 3.8 Chloride 102 Carbon Dioxide 29 Anion Gap 7 L BUN 9.0 Creatinine 0.5 L Est GFR (CKD-EPI)AfAm 129.96 Est GFR (CKD-EPI)NonAf 112.13 Random Glucose 84 Calcium 8.7 Phosphorus 2.5 Magnesium 1.3 L Total Bilirubin 0.8 AST 85 H ALT 105 H Alkaline Phosphatase 119 H Ammonia Total Protein 6.4 Albumin 2.8 L Urine Color Urine Appearance Urine pH Ur Specific [place] Urine Protein Urine Glucose (UA) Urine Ketones Urine Blood Urine Nitrite Urine Bilirubin Urine Urobilinogen Ur Leukocyte Esterase Opiates Screen Negative Methadone Screen Positive A* Barbiturate Screen Negative Phencyclidine Screen Negative Ur Amphetamines Screen Negative MDMA (Ecstasy) Screen Negative Benzodiazepines Screen Positive A* Cocaine Screen Negative U Marijuana (THC) Screen Negative Alcohol, Quantitative Current Medications Generic Name Dose Route Start Last Admin Trade Name Freq PRN Reason Stop Dose Admin Aspirin 81 mg 12/12/19 10:00 12/12/19 09:11 Asa - PO 81 mg DAILY RADHA Administration Chlorthalidone 25 mg 12/12/19 10:00 [place] - PO DAILY RADHA Enoxaparin Sodium 40 mg 12/11/19 18:15 12/12/19 09:12 Lovenox - SQ 40 mg DAILY RADHA Administration Folic Acid 1 mg 12/12/19 18:45 Folic Acid - PO DAILY RADHA Sodium Chloride 1,000 mls @ 75 mls/hr 12/11/19 18:15 12/12/19 03:58 Normal Saline - IV 75 mls/hr ASDIR RADHA Administration Lorazepam 1 mg 12/13/19 05:00 Ativan - PO 12/13/19 23:01 0500,1100,1700,2300 RADHA Lorazepam 1 mg 12/11/19 18:45 12/12/19 12:12 Ativan - PO 12/12/19 18:44 1 mg Q4H PRN Administration Symptoms of Withdrawal Lorazepam 2 mg 12/11/19 17:00 12/12/19 10:09 Ativan - PO 12/12/19 23:01 2 mg 0500,1100,1700,2300 RADHA Administration Lorazepam 0.5 mg 12/14/19 05:00 Ativan - PO 12/14/19 23:01 Q6H RADHA Lorazepam 0.5 mg 12/14/19 00:00 Ativan - PO 12/15/19 00:00 Q4H PRN Symptoms of Withdrawal Lorazepam 0.5 mg 12/15/19 05:00 Ativan - PO 12/15/19 05:01 ONCE ONE Magnesium Sulfate 2 gm 12/12/19 14:18 Magnesium Sulfate IVPB 12/12/19 14:19 ONCE ONE Methadone HCl 30 mg 12/12/19 08:15 12/12/19 08:19 Dolophine - PO 30 mg DAILY@0600 RADHA Administration Multivitamins/Minerals 15 ml 12/11/19 18:30 12/11/19 20:15 Certavite-Antioxidant Liquid PO 15 ml DAILY RADHA Administration Pantoprazole Sodium 40 mg 12/12/19 10:00 12/12/19 09:12 Protonix - PO 40 mg DAILY RADHA Administration Thiamine HCl 200 mg 12/12/19 18:30 Vitamin B1 Injection - IVPB DAILY [facility] Home Medications Medication Instructions Recorded Atorvastatin Ca [Lipitor] 20 mg PO HS 09/22/18 Chlorthalidone 25 mg PO DAILY 09/22/18 Pantoprazole Sodium [Protonix -] 40 mg PO DAILY tablet.ec 09/22/18 Aspirin [ASA -] 81 mg PO DAILY 11/27/19 Methadone [Dolophine -] 40 mg PO DAILY 11/27/19 Methadone [Dolophine -] 30 mg PO DAILY 12/12/19 ASSESSMENT AND PLAN: 68 year old male with HTN, HLD, History of PE (previously on Xarelto - 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 1. Acute Toxic Encephalopathy secondary to Acute Alcohol Intoxication -resolved Now has Acute Alcohol Withdrawal CT Head - no acute findings. Ativan as per CIWA protocol. s/p Banana Bag MVI, Thiamine, Folic Acid Addiction medicine consulted - patient accepted for transfer to [facility] to complete detox. 2. Polysusbstance Abuse - (Heroin -on Methadone, Alcohol) Addiction Medicine Consulted Methadone dose confirmed and continued. 3. Alcoholic Hepatitis Chronically elevated Transaminases, improving Abdo US 09/23 - Diffuse hepatic steatosis, no evidence of acute cholecystitis or cholelithiasis. MRCP 09/23 - fatty liver, no intra- or extra-hepatic biliary dilatation. Hepatitis panel requested but not drawn, will re-request - can be followed as out-patient. 4. Peripheral Neuropathy sec to Alcohol excess - abstinence advised. 5. Hypokalemia/Hypomagnesemia - repleted. 6. Macrocytosis sec to Alcohol excess. B12 level 1299, Folate 33 7. Hx PE - previously on Xarelto - patient reports that this was discontinued by cardiology at [facility] - seen by Cardiology here. 8. HTN - on Chlorthalidone. 9. HLD - Atorvastatin held due to elevated transaminases. 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 DVT Px - Lovenox SQ Medically stable for transfer to [facility].
[2019-12-12 15:43] VITALS: BP 125/82; PULSE 80; TEMP 98.7
--- NOTE | 2019-12-12 16:53 | DS ---
Physical Exam: SUBJECTIVE: Patient seen and examined OBJECTIVE: Vital Signs Period Temp Pulse Resp BP Sys/Plaza Pulse Ox Last 24 Hr 98.2 F-99.2 F 61-95 16-18 125-155/82-92 97-98 PHYSICAL EXAM GENERAL: The patient is awake, alert, and fully oriented, in no acute distress. HEAD: Normal with no signs of trauma. EYES: PERRL, extraocular movements intact, sclera anicteric, conjunctiva clear. ENT: Ears normal, nares patent, oropharynx clear without exudates, moist mucous membranes. NECK: Trachea midline, full range of motion, supple. LUNGS: Breath sounds equal, clear to auscultation bilaterally, no wheezes, no crackles, no accessory muscle use. HEART: Regular rate and rhythm, S1, S2 without murmur, rub or gallop. ABDOMEN: Soft, nontender, nondistended, normoactive bowel sounds, no guarding, no rebound, no hepatosplenomegaly, no masses. EXTREMITIES: 2+ pulses, warm, well-perfused, no edema. NEUROLOGICAL: Cranial nerves II through XII grossly intact. Normal speech, gait not observed. PSYCH: Normal mood, normal affect. SKIN: Warm, dry, normal turgor, no rashes or lesions noted. LABS Laboratory Results - last 24 hr 12/11/19 12/11/19 12/11/19 13:44 13:53 19:50 WBC RBC Hgb Hct MCV MCH MCHC RDW Plt Count MPV Sodium 144 Potassium 3.4 L Chloride 106 Carbon Dioxide 28 Anion Gap 10 BUN 7.8 Creatinine 0.5 L Est GFR (CKD-EPI)AfAm 129.96 Est GFR (CKD-EPI)NonAf 112.13 Random Glucose 98 Calcium 8.6 Phosphorus 3.3 Magnesium 1.5 L Total Bilirubin 0.3 AST 123 H ALT 128 H Alkaline Phosphatase 124 H Ammonia 20.80 Total Protein 6.6 Albumin 2.8 L Opiates Screen Negative Methadone Screen Positive A* Barbiturate Screen Negative Phencyclidine Screen Negative Ur Amphetamines Screen Negative MDMA (Ecstasy) Screen Negative Benzodiazepines Screen Positive A* Cocaine Screen Negative U Marijuana (THC) Screen Negative Alcohol, Quantitative 341.5 H 12/12/19 12/12/19 07:31 07:31 WBC 7.7 RBC 3.61 L Hgb 11.2 L Hct 33.2 L MCV 91.9 MCH 31.0 MCHC 33.7 RDW 15.0 Plt Count 380 MPV 7.7 Sodium 138 Potassium 3.8 Chloride 102 Carbon Dioxide 29 Anion Gap 7 L BUN 9.0 Creatinine 0.5 L Est GFR (CKD-EPI)AfAm 129.96 Est GFR (CKD-EPI)NonAf 112.13 Random Glucose 84 Calcium 8.7 Phosphorus 2.5 Magnesium 1.3 L Total Bilirubin 0.8 AST 85 H ALT 105 H Alkaline Phosphatase 119 H Ammonia Total Protein 6.4 Albumin 2.8 L Opiates Screen Methadone Screen Barbiturate Screen Phencyclidine Screen Ur Amphetamines Screen MDMA (Ecstasy) Screen Benzodiazepines Screen Cocaine Screen U Marijuana (THC) Screen Alcohol, Quantitative HOSPITAL COURSE: Date of Admission:12/11/19 Date of Discharge: 12/12/19 Discharge Summary Problems reviewed: Yes Reason For Visit: ALTERED MENTAL STATUS Current Active Problems Alcohol intoxication (Acute) Alcoholic encephalopathy (Acute) Methadone dependence (Acute) Transaminitis (Acute) History of pulmonary embolus (PE) (Chronic) Condition: Improved - Instructions Diet, Activity, Other Instructions: You came to the hospital because you were altered, and seemed to be intoxicated from alcohol. You began to have withdrawal symptoms, such as tremor, and were treated with medications (Ativan). You also were resumed on your methadone. You had elevated liver enzymes, but your imaging did not show any acute changes. You will need to repeat your liver enzyme blood work and follow up with your primary care physician. You were seen by the ship ceiler, who stated you do not need to continue your Xarelto. You will be going to [facility] to complete your withdrawal. Medications Please resume home medications as prescribed. Follow Up Visits 1. Primary Care Physician, [facility], within 1 week for overall health care management. 2. 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 Reyna, within 2 weeks. If you have any new, worsening or changing symptoms please return to the ED or call 911. Referrals: [facility] [place] [facility] [place] [Provider Group] - 1 Week Luis M Upton MD [Staff Physician] - 2 Weeks Radha De La Paz MD [Staff Physician] - 1 Week Chika Reyna [Non Staff, Medical] - 2 Weeks Disposition: I.P. ALCOHOL/SUBS ABUSE REHAB - Home Medications Comprehensive Discharge Medication List: Ambulatory Orders Atorvastatin Ca [Lipitor] 40 mg PO DAILY 09/22/18 Chlorthalidone 25 mg PO DAILY 09/22/18 Aspirin [ASA -] 81 mg PO DAILY 11/27/19 Folic Acid - 1 mg PO DAILY tablet 12/12/19 Methadone [Dolophine -] 30 mg PO DAILY 12/12/19 Multivit-Minerals [Certavite-Antioxidant Liquid] 15 ml PO DAILY cup 12/12/19 ATTENDING PHYSICIAN STATEMENT I saw and evaluated the patient. I reviewed the resident's note and discussed the case with the resident. I agree with the resident's findings and plan as documented. SUBJECTIVE: OBJECTIVE: ASSESSMENT AND PLAN:
[2019-12-12] MEDS: MULTIVIT-MINERALS ORAL LIQUID PO SCH (18:06)
[2019-12-12] MEDS ORDERED: THIAMINE HCL 200 MG/2 ML VIAL IVPB SCH (18:30)
[2019-12-12] MEDS ORDERED: FOLIC ACID 1 MG TABLET (FP) PO SCH (18:45)
[2019-12-13] MEDS ORDERED: LORazepam 1 MG TABLET PO SCH (05:00)
[2019-12-14] MEDS ORDERED: LORazepam 0.5 MG TABLET PO PRN
[2019-12-14] MEDS ORDERED: LORazepam 0.5 MG TABLET PO SCH (05:00)
== END 2019-12-12 18:10 | disposition other institution (70) | DRG 896 ==
LOC: JER 12:17 → JERBED 17:45 → J5S 21:21
DX: F10.220 Alcohol dependence with intoxication, uncomplicated (principal); G92 Toxic encephalopathy; F11.20 Opioid dependence, uncomplicated; E87.6 Hypokalemia; E83.42 Hypomagnesemia; I10 Essential (primary) hypertension; E78.5 Hyperlipidemia, unspecified; Z86.711 Personal history of pulmonary embolism; R74.01 Elevation of levels of liver transaminase levels; D53.9 Nutritional anemia, unspecified; M25.562 Pain in left knee; M25.561 Pain in right knee; K70.10 Alcoholic hepatitis without ascites; G62.9 Polyneuropathy, unspecified; K76.0 Fatty (change of) liver, not elsewhere classified; K22.70 Barrett's esophagus without dysplasia; K29.70 Gastritis, unspecified, without bleeding
CPT/HCPCS: 36415; 70450-TC; 71045-TC-FY; 80053; 80307; 81003; 82140; 83735; 84100; 85025; 85027; 87086; 93005; 93010; 99285-25; C9803; U0003

== ENCOUNTER 2019-12-12 18:43 | Inpatient (IN) | payer OTHER ==
[2019-12-12 19:15] VITALS: BMI 26.2
--- NOTE | 2019-12-12 20:43 | HP ---
CIWA Score Nausea/Vomitin-Mild Nausea/No Vomiting Muscle Tremors: 1-None Visible, but [place] Anxiety: 4-Mod. Anxious/Guarded Agitation: 4-Moderately Restless Paroxysmal Sweats: 3 Orientation: 1-Uncertain about Date Tacttile Disturbances: 0-None Auditory Disturbances: 0-None Visual Disturbances: 0-None Headache: 4-Moderately Severe CIWA-Ar Total Score: 18 - Admission Criteria OASAS Guidelines: Admission for Medically Managed Detox: Requires at least one of the followin. CIWA greater than 12 2. Seizures within the past 24 hours 3. Delirium tremens within the past 24 hours 4. Hallucinations within the past 24 hours 5. Acute intervention needed for co occurring medical disorder 6. Acute intervention needed for co occurring psychiatric disorder 7. Severe withdrawal that cannot be handled at a lower level of care (continued vomiting, continued diarrhea, abnormal vital signs) requiring intravenous medication and/or fluids 8. 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 No: Ascites Psych: Yes: Addictions (methadone , alcohol , marijuana ) Rheumatology: Yes: Other (B.l Knee pain ) - Smoking History Smoking history: Former smoker Have you smoked in the past 12 months: Yes Aproximately how many cigarettes per day: 5 - Alcohol/Substance Use Hx Alcohol Use: Yes Number of Drinks Daily: 1 (1.5 pind of Jewels , last use Yesterday ) History of Substance Use: reports: Heroin, Marijuana, Prescription (methadone ) Date of Last Use: 09/16/18 (Marijuana ) - Social History ADL: Independent Admission [facility] Chief Complaint: alcohol detox Allergies/Adverse Reactions: Allergies Allergy/AdvReac Type Severity Reaction Status Date / Time No Known Allergies Allergy Verified 12/12/19 19:47 History of Present Illness: HERE FOR ALCOHOL DETOX. CLIENT IS REFERRED BY [facility] AFTER BEING ADMITTED THERE FROM 12/11/2019-12/12/2019. HE WAS ADMITTED FOR ALCOHOL INTOXICATION WITH ALTERED MENTAL STATUS. HEAD CT NEGATIVE FOR ACUTE CHANGES. WAS STARTED ON ATIVAN TAPER FOR WITHDRAWAL SX'S. HE HAS SINCE BEEN MEDICALLY CLEARED AND REFERRED TO US TO COMPLETED HIS DETOX. 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 HE IS ALSO ON MMTP AT [facility] WITH A REPORTED DOSE OF 30 MG. LDM TODAY AT [facility]. DENIES ANY HERION USE. STATES LAST USED OVER 20 YEARS AGO. DENIES HX/O IVDU, DRUG OVERDOSE. LIVES ALONE, RETIRED, DENIES LEGALS COVID- PENDING EKG -nsr possible left atrial enlargement LABS NOTED AND APPRECIATED FROM [facility] ADMISSION. ELEVATED LIVER ENZYMES AST 85 LT 105 ALKALINE PHOS 119 Exam Limitations: No Limitations - Ebola screening Have you traveled outside of the country in the last 21 days: No Have you had contact with anyone from an Ebola affected area: No Have you been sick,other than usual withdrawal symptoms: No Do you have a fever: No - Review of Systems Constitutional: Chills, Night Sweats EENT: reports: Dental Problems (MISSING TEETH), Other Respiratory: reports: No Symptoms reported Cardiac: reports: No Symptoms Reported GI: reports: Nausea : reports: No Symptoms Reported Musculoskeletal: reports: No Symptoms Reported Integumentary: reports: No Symptoms Reported Neuro: reports: Headache, Tremors, Unsteady Gait (ambulates with cane doed not have it with him) Endocrine: reports: No Symptoms Reported Hematology: reports: Blood Clots (hx of pe) Psychiatric: reports: Anxious Other Systems: Reviewed and Negative Patient History - Patient Medical History Hx Anemia: No Hx Asthma: No Hx Chronic Obstructive Pulmonary Disease (COPD): No Hx Cancer: No Hx Cardiac Disorders: No Hx Congestive Heart Failure: No Hx Hypertension: Yes Hx Hypercholesterolemia: Yes Hx Pacemaker: No HX Cerebrovascular Accident: No Hx Seizures: No Hx Dementia: No Hx Diabetes: No Hx Gastrointestinal Disorders: No Hx Liver Disease: Yes (elevated enzymes) Hx Genitourinary Disorders: No Hx Sexually Transmitted Disorders: No Hx Renal Disease (ESRD): No Hx Thyroid Disease: No Hx Human Immunodeficiency Virus (HIV): No Hx Hepatitis C: No Hx Depression: No Hx Suicide Attempt: No Hx Bipolar Disorder: No Hx Schizophrenia: No Other Medical History: denies - Patient Surgical History Past Surgical History: Yes Hx Neurologic Surgery: No Hx Cataract Extraction: No Hx Cardiac Surgery: No Hx Lung Surgery: No Hx Breast Surgery: No Hx Breast Biopsy: No Hx Abdominal Surgery: No Hx Appendectomy: No Hx Cholecystectomy: No Hx Genitourinary Surgery: No Hx Section: No Hx Orthopedic Surgery: Yes (Arthroscopic knee surgery 2007) Anesthesia Reaction: No - PPD History Previous Implant?: Yes Documented Results: Negative w/o proof Implanted On Prior [facility] Admission?: No Date: 12/11/19 Results: neg cxr PPD to be Administered?: No - Reproductive History Patient : No - Smoking Cessation Smoking history: Former smoker Have you smoked in the past 12 months: No Aproximately how many cigarettes per day: 5 Hx Chewing Tobacco Use: No Initiated information on smoking cessation: No - Substance & Tx. History Hx Alcohol Use: Yes Hx Substance Use: Yes Substance Use Type: Alcohol, Prescribed (methadone) Hx Substance Use Treatment: Yes ([facility]) - Substances abused Alcohol Other (specify): jewels Substance route: Oral Frequency: Daily Amount used: 2 pints Age of first use: 32 Date of last use: 12/11/19 Admission Physical Exam [facility] - Vital Signs Vital Signs: Vital Signs - 24 hr 12/12/19 12/12/19 19:11 20:08 Temperature 97.7 F Pulse Rate 90 Respiratory 18 Rate Blood Pressure 154/111 H O2 Sat by Pulse 98 Oximetry (%) - Physical General Appearance: Yes: Moderate Distress, Tremorous, Anxious HEENTM: Yes: EOMI, Normocephalic, Normal Voice, GLORIA, Pharynx Normal, Other (missing teeth) Respiratory: Yes: Chest Non-Tender, Lungs Clear, Normal Breath Sounds, No Respiratory Distress, No Accessory Muscle Use Neck: Yes: No masses,lesions,Nodules, Supple, Trachea in good position Breast: Yes: Breasts Symetrical Cardiology: Yes: Regular Rhythm, Regular Rate, S1, S2 Abdominal: Yes: Non Tender, Soft, Protuberent Genitourinary: Yes: Within Normal Limits Back: Yes: Normal Inspection Musculoskeletal: Yes: full range of Motion Extremities: Yes: Normal Capillary Refill, Normal Range of Motion, Non-Tender, Tremors Neurological: Yes: Fully Oriented, Alert, Motor Strength 5/5 Integumentary: Yes: Dry, Cold Lymphatic: Yes: Within Normal Limits - Diagnostic (1) Alcohol dependence with uncomplicated withdrawal Current Visit: Yes Status: Acute Comment: 1. Admit detox protocol 2. Routine labs, plan Ativan as prior elevation LFTs (2) Alcohol-induced mood disorder Current Visit: Yes Status: Acute (3) Gait instability Current Visit: Yes Status: Chronic Comment: 1. as above, no recent falls reported (4) Elevated liver enzymes Current Visit: Yes Status: Acute (5) HLD (hyperlipidemia) Current Visit: Yes Status: Chronic Qualifiers: Hyperlipidemia type: unspecified Qualified Code(s): E78.5 - Hyperlipidemia, unspecified (6) HTN (hypertension) Current Visit: Yes Status: Chronic Qualifiers: Hypertension type: essential hypertension Qualified Code(s): I10 - Essential (primary) hypertension (7) History of pulmonary embolus (PE) Current Visit: Yes Status: Resolved (8) Methadone maintenance therapy patient Current Visit: Yes Status: Chronic Cleared for Admission S - Detox or Rehab [facility] Level of Care: Medically Managed Detox Regimen/Protocol: Ativan Claeared for Rehab Admission: No Breathalyzer - Breathalyzer Breathalyzer: 0 Urine Drug Screen - Test Device Lot number: [id number] Expiration date: 06/12/21 - Control Is test valid?: Yes - Results Drug screen NEGATIVE: No Urine drug screen results: MTD-Methadone, BZO-Benzodiazepines Inpatient Rehab Admission - Rehab Decision to Admit Inpatient rehab admission?: No
[2019-12-12] MEDS ORDERED: MAGNESIUM HYDROX 2400MG/30ML ORAL SUSPENSION 30 ML CUP PO PRN (20:56)
[2019-12-12] MEDS ORDERED: MAG HYDROX/AL HYDROX/SIMETH 30 ML UNIT-DOSE CUP PO PRN (20:56)
[2019-12-12] MEDS ORDERED: ONDANSETRON *ODT* 4 MG TABLET SL PRN (20:56)
[2019-12-12] MEDS ORDERED: DICYCLOMINE HCL 10 MG CAPSULE PO PRN (20:56)
[2019-12-12] MEDS ORDERED: guaiFENesin 200 MG/10 ML 10 ML UNIT-DOSE CUPS PO PRN (20:56)
[2019-12-12] MEDS ORDERED: P-EPHED 60MG/TRIPROLIDI 2.5MG TABLET PO PRN (20:56)
[2019-12-12] MEDS ORDERED: ACETAMINOPHEN 325 MG TABLET (FP) PO PRN ×2 (20:56)
[2019-12-12] MEDS ORDERED: BISMUTH SUBSALICYLATE 524 MG/30 ML UD PO PRN (20:56)
[2019-12-12] MEDS ORDERED: MENTHOL/PHENOL 1 EACH UD MM PRN (20:56)
[2019-12-12] MEDS ORDERED: MAGNESIUM CITRATE 300 ML BOTTLE PO PRN (20:56)
[2019-12-12] MEDS ORDERED: LORazepam 1 MG TABLET PO PRN (20:56)
[2019-12-12] MEDS ORDERED: METHOCARBAMOL 500 MG TABLET PO PRN (20:56)
[2019-12-12] MEDS ORDERED: IBUPROFEN 400 MG TABLET (FP) PO PRN (20:56)
[2019-12-12] MEDS: THIAMINE HCL 100 MG TABLET (FP) PO SCH (22:02)
[2019-12-12] MEDS: MELATONIN 5 MG TABLETS PO SCH (22:02)
[2019-12-12] MEDS ORDERED: LORazepam 2 MG TABLET PO SCH (23:00)
[2019-12-13] MEDS: LORazepam 1 MG TABLET PO SCH ×4 (06:45→22:27)
[2019-12-13] MEDS ORDERED: METHADONE HCL 10 MG TABLET PO ONE (08:24)
[2019-12-13] MEDS: PRENATAL VITAMINS W/ FOLIC ACID TABLET (FP) PO SCH (10:27)
--- NOTE | 2019-12-13 10:34 | PN ---
S CIWA - CIWA Score Nausea/Vomitin-No Nausea/No Vomiting Muscle Tremors: 3 Anxiety: 3 Agitation: 3 Paroxysmal Sweats: 2 Orientation: 0-Oriented Tacttile Disturbances: 0-None Auditory Disturbances: 0-None Visual Disturbances: 0-None Headache: 0-None Present CIWA-Ar Total Score: 11 S Progress Note (SOAP) Subjective: sweats shakes body aches restless Objective: 12/13/19 10:33 Vital Signs Temperature 97.3 F L 12/13/19 09:06 Pulse Rate 93 H 12/13/19 09:06 Respiratory Rate 18 12/13/19 09:06 Blood Pressure 149/99 12/13/19 09:06 O2 Sat by Pulse Oximetry (%) 95 12/13/19 09:06 labs pending [id number] ambulating no acute distress Assessment: 12/13/19 10:34 withdrawal sx Plan: continue detox cane ordered
[2019-12-13] MEDS: MELATONIN 5 MG TABLETS PO SCH (22:27)
[2019-12-13] MEDS: THIAMINE HCL 100 MG TABLET (FP) PO SCH (22:27)
[2019-12-14] MEDS: METHADONE HCL 10 MG TABLET PO SCH (05:17)
[2019-12-14] MEDS: LORazepam 0.5 MG TABLET PO SCH ×4 (05:17→22:19)
[2019-12-14] MEDS: PRENATAL VITAMINS W/ FOLIC ACID TABLET (FP) PO SCH (10:48)
--- NOTE | 2019-12-14 11:44 | PN ---
S CIWA - CIWA Score Nausea/Vomitin-Mild Nausea/No Vomiting Muscle Tremors: 2 Anxiety: 2 Agitation: 1-Slight > Activity Paroxysmal Sweats: No Perspiration Orientation: 0-Oriented Tacttile Disturbances: 0-None Auditory Disturbances: 0-None Visual Disturbances: 0-None Headache: 1-Very Mild CIWA-Ar Total Score: 7 BHS Progress Note (SOAP) Subjective: alert,irritable,anxious,interrupted sleep,aching pain, Objective: 12/14/19 13:08 Vital Signs Temperature 98.9 F 12/14/19 09:08 Pulse Rate 98 H 12/14/19 09:08 Respiratory Rate 18 12/14/19 09:08 Blood Pressure 126/80 12/14/19 09:08 O2 Sat by Pulse Oximetry (%) 97 12/14/19 09:08 Assessment: 12/14/19 13:09 withdrawal symptom Plan: continue detox ativan regimen,patient declined detox,follow up with methadone maintenance clinic,discharge in am,also will follow up with his own medical provider for medical issue
[2019-12-14] MEDS ORDERED: ASPIRIN 81 MG CHEWABLE TABLETS PO SCH (13:15)
[2019-12-14] MEDS ORDERED: ATORVASTATIN CA 20 MG TABLET (FP) PO SCH (22:00)
[2019-12-14] MEDS: THIAMINE HCL 100 MG TABLET (FP) PO SCH (22:19)
[2019-12-14] MEDS: MELATONIN 5 MG TABLETS PO SCH (22:19)
[2019-12-15] MEDS ORDERED: LORazepam 0.5 MG TABLET PO PRN
[2019-12-15] MEDS ORDERED: LORazepam 0.5 MG TABLET PO ONE (05:00)
[2019-12-15] MEDS: METHADONE HCL 10 MG TABLET PO SCH (06:19)
[2019-12-15 08:22] VITALS: BP 140/93; PULSE 77; TEMP 97.5
--- NOTE | 2019-12-15 10:55 | DS ---
[facility] Detox Discharge Summary Admission Date: 12/12/19 Discharge Date: 12/15/19 - History Present History: Alcohol Dependence, Cannabis Dependence, MMTP Additional Comments: Patient seen and examined, alert and oriented x3, in acute respiratory distress. Full ROM, ambulatory in the unit without assistance. Skin warm to touch without lesions. Completed detox protocol, stable for discharge today Pertinent Past History: History of HTN, MMTP, alcohol, and marijuana use disorder - Physical Exam Results Vital Signs: Vital Signs Temperature 97.5 F L 12/15/19 05:00 Pulse Rate 77 12/15/19 05:00 Respiratory Rate 18 12/15/19 05:00 Blood Pressure 140/93 12/15/19 05:00 O2 Sat by Pulse Oximetry (%) 98 12/15/19 05:00 Vital Signs 12/15/19 05:00 Temperature 97.5 F L Pulse Rate 77 Respiratory 18 Rate Blood Pressure 140/93 O2 Sat by Pulse 98 Oximetry (%) Pertinent Admission Physical Exam Findings: withdrawal symptoms - Treatment Hospital Course: Detox Protocol Followed, Detoxed Safely, Responded well, Discharged Condition Good - Medication Discharge Medications: Ambulatory Orders Atorvastatin Ca [Lipitor] 40 mg PO DAILY 09/22/18 Chlorthalidone 25 mg PO DAILY 09/22/18 Aspirin [ASA -] 81 mg PO DAILY 11/27/19 Folic Acid - 1 mg PO DAILY tablet 12/12/19 Methadone [Dolophine -] 30 mg PO DAILY 12/12/19 Multivit-Minerals [Certavite-Antioxidant Liquid] 15 ml PO DAILY cup 12/12/19 - Diagnosis (1) Alcohol dependence with uncomplicated withdrawal Current Visit: Yes Status: Acute (2) HTN (hypertension) Current Visit: Yes Status: Chronic Qualifiers: Hypertension type: essential hypertension Qualified Code(s): I10 - Essential (primary) hypertension (3) Methadone maintenance therapy patient Current Visit: Yes Status: Chronic - AMA Did Patient Leave Against Medical Advice: No
== END 2019-12-15 08:47 | disposition home or self-care (01) | DRG 897 ==
LOC: YASAS 18:43 → Y6N 20:03
PROVIDERS: ADMIT Allergy & Immunology; ATTEND Allergy & Immunology
PROC: HZ2ZZZZ Detoxification Services for Substance Abuse Treatment (ICD-10-PCS; principal; 2019-12-12)
DX: F10.230 Alcohol dependence with withdrawal, uncomplicated (principal); F11.20 Opioid dependence, uncomplicated; F12.20 Cannabis dependence, uncomplicated; F17.211 Nicotine dependence, cigarettes, in remission; F10.24 Alcohol dependence with alcohol-induced mood disorder; I10 Essential (primary) hypertension; E78.5 Hyperlipidemia, unspecified; R74.8 Abnormal levels of other serum enzymes; M25.561 Pain in right knee; M25.562 Pain in left knee; Z86.711 Personal history of pulmonary embolism; R26.89 Other abnormalities of gait and mobility; Z99.89 Dependence on other enabling machines and devices

== ENCOUNTER 2021-11-28 11:56 | Emergency (ER) | payer OTHER, MEDICARE ==
[2021-11-28 12:18] VITALS: BP 121/83; RESP 16; TEMP 98.8; BMI 30.4
[2021-11-28 14:11] VITALS: PULSE 62
== END 2021-11-28 14:23 | disposition home or self-care (01) ==
LOC: JER 11:56
DX: J06.9 Acute upper respiratory infection, unspecified (principal)
CPT/HCPCS: 0241U-QW; 71046-TC-FY; 99284-25